=== PATIENT | female | born 1955 | race Two or more races ===

== ENCOUNTER → 2019-11-09 10:46 | Outpatient (BNVA) | payer MEDICARE, MEDICAID, SELFPAY | PROVIDERS: Visit Provider Internal Medicine Endocrinology, Diabetes & Metabolism | DX: E05.00 Thyrotoxicosis with diffuse goiter without thyrotoxic crisis or storm (principal); E66.9 Obesity, unspecified; Z68.34 Body mass index [BMI] 34.0-34.9, adult | CPT/HCPCS: 99214 ==

== ENCOUNTER 2019-11-13 16:07 | Outpatient (REF) | payer MEDICARE, MEDICAID, SELFPAY ==
--- NOTE | 2019-11-13 | US_ITS ---
EXAMINATION: US PELVIS, COMPLETE CLINICAL INFORMATION: Pelvic pain. COMPARISON: None. TECHNIQUE: Transabdominal and transvaginal imaging was performed. FINDINGS: LMP: Postmenopausal. Uterus is anteverted , measuring 7.7 x 4.8 x 5.5 cm. Heterogeneous hypoechoic focus in the uterine body/fundus measuring 4. 4 x 4 by 4 cm, probable fibroid. Endometrial thickness 0.5 cm. Small fluid is seen within the canal in the cervical region. Nabothian cysts present. Bilateral ovaries are not visualized. No free fluid in the cul-de-sac. IMPRESSION: 1. Heterogeneous hypoechoic focus in the uterine body/fundus measuring 4. 4 x 4 by 4.4 cm, probable fibroid. 2. Patient is postmenopausal. Endometrial thickness measures 0.5 cm. Please clinically correlate. In postmenopausal patients, endometrial thickness of 8 mm or less is within range of normal, if no vaginal bleeding. Clinical correlation and management is recommended based on patient's symptoms and risk factors. In a postmenopausal patient, endometrial thickness of 4 mm or more in the presence of vaginal bleeding would require further evaluation. Clinical management is recommended.
== END 2019-11-13 16:08 | disposition home or self-care (01) ==
LOC: HO.US 16:07
PROVIDERS: Visit Provider Obstetrics & Gynecology
DX: R10.2 Pelvic and perineal pain (principal); R10.32 Left lower quadrant pain; N94.9 Unspecified condition associated with female genital organs and menstrual cycle
CPT/HCPCS: 76830; 76856

== ENCOUNTER → 2019-12-20 13:43 | Outpatient (BNVA) | payer MEDICARE, MEDICAID, SELFPAY | PROVIDERS: Visit Provider Student in an Organized Health Care Education/Training Program | DX: M75.51 Bursitis of right shoulder (principal) | CPT/HCPCS: 20610; 99212 ==

== ENCOUNTER → 2020-02-22 12:48 | Outpatient (BNVA) | payer MEDICARE, MEDICAID, SELFPAY | PROVIDERS: PCP Physician Assistant; Visit Provider Nurse Practitioner Family | DX: Z76.89 Persons encountering health services in other specified circumstances (principal) | CPT/HCPCS: 93005; 99212 ==

== ENCOUNTER 2020-02-22 14:04 | Inpatient (IN) | payer MEDICARE, MEDICAID, SELFPAY ==
[2020-02-22 14:06] VITALS: BP 106/78; PULSE 125; RESP 18; TEMP 36.5; O2SAT 100; BMI 31.5
--- NOTE | 2020-02-22 14:39 | ECG_ITS ---
Test Reason : AFIB Blood Pressure : / mmHG Vent. Rate : 127 BPM Atrial Rate : 136 BPM P-R Int : 000 ms QRS Dur : 114 ms QT Int : 310 ms P-R-T Axes : 000 -49 128 degrees QTc Int : 450 ms Atrial fibrillation with rapid ventricular response with premature ventricular or aberrantly conducted complexes Left axis deviation Left ventricular hypertrophy with QRS widening Nonspecific T wave abnormality Abnormal ECG When compared with ECG of 05-DEC-2016 07:51, Atrial fibrillation with rapid ventricular response has replaced Normal sinus rhythm Referred By: Billie Henao Electronically Signed By:KY HERNANDEZ MD
--- NOTE | 2020-02-22 14:44 | ED.GENADULT ---
HPI - General Adult General Chief complaint: General Medical Stated complaint: afib Time Seen by Provider: 02/22/20 14:37 Source: patient Mode of arrival: ambulatory Limitations: no limitations History of Present Illness HPI narrative: 64 y/o female with history of atrial fibrillation s/p ablation x2 on Pradaxa, HFrEF, non-ischemic cardiomyopathy with biventricular ICD, anxiety who presents from Cardiology office with symptomatic rapid atrial fibrillation. She reports feeling unwell for the last 4 days. She has been fatigued with JOAQUIN and palpitations. She reports medication compliance with no fluctuations in her weight. She was referred to the ED for admission for cardioversion. Shew denies fever, chills, N/V/D, cough, urinary symptoms. She denies chest pain. MD complaint: palpitations Onset (ago): day(s) (3) Location: chest Radiation: non-radiation Severity: moderate Pain Consistency: intermittent Relieving factors: rest Exacerbating factors: movement Associated symptoms: malaise and shortness of breath Treatments prior to arrival: none Related Data Home Medications Medication Instructions Recorded Confirmed acetaminophen 500 mg tablet 1,000 mg PO Q6H PRN 11/09/19 02/22/20 clonazepam 0.5 mg tablet 0.5 mg PO BEDTIME 11/09/19 02/22/20 dabigatran etexilate 150 mg capsule 150 mg PO BID 11/09/19 02/22/20 sotalol 80 mg tablet 80 mg PO BID 11/09/19 02/22/20 Previous Rx's Medication Instructions Recorded sacubitril 97 mg-valsartan 103 mg 1 tab PO BID #60 tab 12/26/19 tablet furosemide 40 mg tablet 40 mg PO DAILY #90 tab 02/05/20 Allergies Allergy/AdvReac Type Severity Reaction Status Date / Time rivaroxaban [From XARELTO] AdvReac Intermediate RASH Verified 12/20/19 13:56 Review of Systems Review of Systems: Constitutional: No Fever, No Chills ENT/Mouth: No sore throat, No Rhinorrhea, No Swallowing Difficulty Eyes: No Eye Pain, No Swelling, No Redness Cardiovascular: No Chest Pain, + SOB, No Orthopnea,+ Edema Respiratory: No Cough, No Sputum, No Wheezing, + dyspnea Gastrointestinal: No Nausea, No Vomiting, No Diarrhea, No abdominal Pain Genitourinary: No Dysuria, No Urinary Frequency, No Hematuria Musculoskeletal: No joint pain, No Myalgias Skin: No Skin Lesions, No rash Neuro: No Weakness, No Numbness, No Dizziness, No Headache Psych: + Anxiety/Panic, No Depression Heme/Lymph: No Bruising, No Lymphadenopathy PMFSH Past Medical History Attestation statement: The following information was validated with the patient. Medical History Biventricular ICD (implantable cardioverter-defibrillator) in place Graves' disease in remission History of cardioversion HLD (hyperlipidemia) HTN (hypertension) Nonischemic cardiomyopathy Obesity (BMI 30-39.9) PAF (paroxysmal atrial fibrillation) SVT (supraventricular tachycardia) Surgical History History of cardiac defibrillator placement History of radiofrequency ablation procedure for cardiac arrhythmia Hx of cardiac catheterization (~06/2017) Hx of tubal ligation Family History Family History Father CVA (cerebral vascular accident) Mother Hypertension Diabetes Social History Social History Alcohol intake: never Smoking Status: Never smoker Use of substances other than those prescribed or required for medical reasons: No Advance Directives: No Advance Directives Information Provided: No Physical Exam Vital Signs: Vital Signs: Last Vital Signs Temp 97.7 F 02/22/20 14:06 Pulse 125 H 02/22/20 14:06 Resp 18 02/22/20 14:06 BP 106/78 02/22/20 14:06 Pulse Ox 100 02/22/20 14:06 Body Mass Index 31.5 Appearance: Alert. Oriented X3. No acute distress. Eyes: Pupils equal, round and reactive to light. ENT: Pharynx normal. Neck: Normal inspection. Neck supple. CVS: irregularly irregular, rapid rate. Pulses normal. Respiratory: No respiratory distress. Breath sounds normal. No rales. Abdomen: Obese, soft and nontender. +BS x4 Skin: Skin warm and dry. Normal skin color. Normal skin turgor. No rashes. Extremities: No lower extremity edema. Neuro: Oriented X 3. No motor deficit. No sensory deficit. Course Course Course Narrative: 64 y/o female presenting with symptomatic rapid afib. HR 110-130's. SBP soft initially 90's --> 110 on arrival here. Will give low dose lopressor IV and check labs. Plan for admission for cardioversion per Dr. Bruno. Reevaluation(s) Reevaluation #1: BNP 1100 - will give dose of IV lasix, possible CHF exacerbation leading to rapid afib. BP soft so will need to monitor closely. IV lopressor given x2 with HR remaining 110-130's. Will TT Dr. Bruno for recs on continued IV BB vs digoxin load. Reevaluation #2: 4:14 pm - Dr. Bruno recommending continuation of her home Sotalol and also 2 doses of IV digoxin. Spoke with Aishwarya Perze who will admit patient for planned cardioversion. Consultations Consultation #1: Cardiology - Dr. Bruno Medical Decision Making Lab Data Result diagrams: 02/22/20 14:54 02/22/20 14:54 Labs: Lab Results 02/22/20 02/22/20 02/22/20 Range/Units 14:54 14:54 14:54 WBC 8.0 (4.8-10.8) X10*3/uL RBC 4.20 (4.20-5.50) X10*6/uL Hgb 12.4 (12.0-16.0) g/dl Hct 37.7 (37-47) % MCV 89.8 (80-98) fL MCH 29.5 (27.0-33.0) pg MCHC 32.9 (31.0-35.0) g/dl RDW 14.4 (11.0-16.0) % Plt Count 254 (160-400) X10*3/uL MPV 10.4 (9.4-12.3) fL Immature Gran % (Auto) 0.1 (0.0-0.4) % Neut % (Auto) 61.0 (45-73) % Lymph % (Auto) 29.7 (20-40) % Christian % (Auto) 7.8 (2-11) % Eos % (Auto) 0.9 (0-4) % Baso % (Auto) 0.5 (0-2) % Lymph # (Auto) 2.4 (1.2-4.9) X10*3/uL Christian # (Auto) 0.6 (0.1-1.2) X10*3/uL Eos # (Auto) 0.1 (0.0-0.4) X10*3/uL Baso # (Auto) 0.0 (0.0-0.2) X10*3/uL Abs Immat Gran (auto) 0.01 (0.00-0.03) X10*3/uL Absolute Neuts (auto) 4.9 (2.0-8.3) X10*3/uL Absolute Nucleated RBC 0.000 (0.0-0.012) X10*3/uL Nucleated RBC % (auto) 0.0 (0.0-0.2) /100WBC PT 15.5 H (10.8-13.0) SEC INR 1.3 H (0.9-1.1) APTT 59.6 H (24.1-38.0) SEC Sodium 142 (135-145) mmol/L Potassium 4.8 (3.3-5.1) mmol/l Chloride 105 (96-108) mmol/L Carbon Dioxide 28 (22-29) mmol/L Anion Gap 14 (12-20) BUN 12 (9-16) mg/dL Creatinine 0.82 (0.5-1.4) mg/dL Estim Creat Clear Calc 87.5 Estimated GFR > 60 Random Glucose 133 H (60-115) mg/dL Calcium 8.6 (8.4-10.2) mg/dL Magnesium 2.3 (1.6-2.6) mg/dL Total Bilirubin 0.9 (0.0-1.0) mg/dL Direct Bilirubin 0.3 (0.0-0.5) mg/dL AST 32 H (5-31) U/L ALT 46 H (0-31) U/L Alkaline Phosphatase 125 H (39-117) U/L Troponin I High Sens (<3.5-17.0) ng/L B-Natriuretic Peptide (<100) pg/mL Total Protein 6.7 (6.5-8.0) g/dL Albumin 4.1 (3.5-5.0) g/dL TSH 0.83 (0.32-4.0) mIU/mL Urine Color Urine Appearance Urine pH (5.0-8.0) Ur Specific [place] (1.005-1.025) Urine Protein (NEG-TRACE) MG/DL Urine Glucose (UA) (NEG) MG/DL Urine Ketones (NEG) MG/DL Urine Blood (NEG) Urine Nitrite (NEG) Ur Leukocyte Esterase (NEG) COVID-19 ([facility]) (Negative) COVID-19 Clin Com 02/22/20 02/22/20 02/22/20 Range/Units 14:54 14:54 15:40 WBC (4.8-10.8) X10*3/uL RBC (4.20-5.50) X10*6/uL Hgb (12.0-16.0) g/dl Hct (37-47) % MCV (80-98) fL MCH (27.0-33.0) pg MCHC (31.0-35.0) g/dl RDW (11.0-16.0) % Plt Count (160-400) X10*3/uL MPV (9.4-12.3) fL Immature Gran % (Auto) (0.0-0.4) % Neut % (Auto) (45-73) % Lymph % (Auto) (20-40) % Christian % (Auto) (2-11) % Eos % (Auto) (0-4) % Baso % (Auto) (0-2) % Lymph # (Auto) (1.2-4.9) X10*3/uL Christian # (Auto) (0.1-1.2) X10*3/uL Eos # (Auto) (0.0-0.4) X10*3/uL Baso # (Auto) (0.0-0.2) X10*3/uL Abs Immat Gran (auto) (0.00-0.03) X10*3/uL Absolute Neuts (auto) (2.0-8.3) X10*3/uL Absolute Nucleated RBC (0.0-0.012) X10*3/uL Nucleated RBC % (auto) (0.0-0.2) /100WBC PT (10.8-13.0) SEC INR (0.9-1.1) APTT (24.1-38.0) SEC Sodium (135-145) mmol/L Potassium (3.3-5.1) mmol/l Chloride (96-108) mmol/L Carbon Dioxide (22-29) mmol/L Anion Gap (12-20) BUN (9-16) mg/dL Creatinine (0.5-1.4) mg/dL Estim Creat Clear Calc Estimated GFR Random Glucose (60-115) mg/dL Calcium (8.4-10.2) mg/dL Magnesium (1.6-2.6) mg/dL Total Bilirubin (0.0-1.0) mg/dL Direct Bilirubin (0.0-0.5) mg/dL AST (5-31) U/L ALT (0-31) U/L Alkaline Phosphatase (39-117) U/L Troponin I High Sens 5.0 (<3.5-17.0) ng/L B-Natriuretic Peptide 1192 H (<100) pg/mL Total Protein (6.5-8.0) g/dL Albumin (3.5-5.0) g/dL TSH (0.32-4.0) mIU/mL Urine Color YELLOW Urine Appearance CLEAR Urine pH 6.0 (5.0-8.0) Ur Specific [place] 1.010 (1.005-1.025) Urine Protein NEG (NEG-TRACE) MG/DL Urine Glucose (UA) NEG (NEG) MG/DL Urine Ketones NEG (NEG) MG/DL Urine Blood NEG (NEG) Urine Nitrite NEG (NEG) Ur Leukocyte Esterase NEG (NEG) COVID-19 ([facility]) Negative (Negative) COVID-19 Clin Com See Note ECG Data Attestation: I personally reviewed and interpreted this ECG as follows: Interpretation: atrial fibrillation with rapid ventrciular response, HR 127 bpm, incomplete RBBB, nonspecific T wave abnormality, poor R wave progression Critical Care Time Critical Care Time Critical Care Time: Yes Total Critical Care Time: 40 Attestation: I attest to critical care time spent taking care of this patient with rapid atrial fibrillation requiring multiple doses of IV rate controlling medications and frequent reassessment of hemodynamics. Discharge Plan Discharge Clinical Impression: Atrial fibrillation with RVR Patient Disposition: Admitted As Inpatient Prescriptions: No Action sacubitril-valsartan [Entresto] 97-103 mg tablet 1 tab PO BID Qty: 60 RF: 3 furosemide 40 mg tablet 40 mg PO DAILY Qty: 90 RF: 1 Pradaxa 150 mg capsule 150 mg PO BID RF: 0 sotalol 80 mg tablet 80 mg PO BID RF: 0 acetaminophen [Tylenol Extra Strength] 500 mg tablet 1,000 mg PO Q6H PRN (Reason: Pain (Scale Score 1-3)) RF: 0 clonazepam [Klonopin] 0.5 mg tablet 0.5 mg PO BEDTIME RF: 0
[2020-02-22 15:00] LABS: MANUAL DIFF FLAG NO
[2020-02-22] MEDS: Metoprolol Tartrate 5 MG/5 ML VIAL 2.5 MG IVPUSH ×2 (15:01→15:47)
[2020-02-22 15:03] LABS: Basophils Percent Auto 0.5 % (0-2); Eosinophils Absolute Auto 0.1 X10*3/uL (0.0-0.4); Eosinophils Percent Auto 0.9 % (0-4); Hematocrit 37.7 % (37-47); Hemoglobin 12.4 g/dl (12.0-16.0); Imm Gran Abs Auto 0.01 X10*3/uL (0.00-0.03); Imm Gran Pct Auto 0.1 % (0.0-0.4); Lymphocytes Absolute Auto 2.4 X10*3/uL (1.2-4.9); Lymphocytes Percent Auto 29.7 % (20-40); Mean Corpuscular HGB Conc 32.9 g/dl (31.0-35.0); Mean Corpuscular Hemoglobin 29.5 pg (27.0-33.0); Mean Corpuscular Volume 89.8 fL (80-98); Mean Platelet Volume 10.4 fL (9.4-12.3); Monocytes Absolute Auto 0.6 X10*3/uL (0.1-1.2); Monocytes Percent Auto 7.8 % (2-11); Neutrophils Absolute Auto 4.9 X10*3/uL (2.0-8.3); Platelet Count 254 X10*3/uL (160-400); Red Cell Distribution Width 14.4 % (11.0-16.0)
[2020-02-22 15:08] LABS: INTERNATIONAL NORM RATIO 1.3 (0.9-1.1); Prothrombin Time 15.5 SEC (10.8-13.0)
[2020-02-22 15:11] LABS: Partial Thromboplastin Time 59.6 SEC (24.1-38.0)
[2020-02-22 15:18] LABS: COVID-19 Test Negative (Negative); IDNOW Serial# 9DD0AD1C
[2020-02-22 15:28] LABS: B Type Natriuretic Peptide 1192 pg/mL (<100)
--- NOTE | 2020-02-22 15:35 | XR_ITS ---
EXAMINATION: XR CHEST CLINICAL INFORMATION: Palpitations COMPARISON: December 02, 2016 TECHNIQUE: AP portable view of the chest was obtained. FINDINGS: No significant abnormality is noted involving the heart, lungs, mediastinum, bony thorax or soft tissues. Pacemaker/defibrillator in place. XR/XR chest 1V IMPRESSION: No acute disease.
[2020-02-22 15:45] LABS: Alanine Aminotransferase 46 U/L (0-31); Albumin Level 4.1 g/dL (3.5-5.0); Alkaline Phosphatase 125 U/L (39-117); Anion Gap 14 (12-20); Aspartate Amino Transferase 32 U/L (5-31); Bilirubin Direct 0.3 mg/dL (0.0-0.5); Bilirubin Total 0.9 mg/dL (0.0-1.0); Blood Urea Nitrogen 12 mg/dL (9-16); Calcium 8.6 mg/dL (8.4-10.2); Carbon Dioxide 28 mmol/L (22-29); Chloride 105 mmol/L (96-108); Creatinine Clr Calc Pharmacy 87.5; Estimated Glomerular Filt Rate > 60; Glucose Random 133 mg/dL (60-115); Magnesium 2.3 mg/dL (1.6-2.6); Potassium 4.8 mmol/l (3.3-5.1); Sodium 142 mmol/L (135-145); Total Protein 6.7 g/dL (6.5-8.0)
[2020-02-22] MEDS: Furosemide 20 MG/2 ML VIAL IVPUSH (15:46)
[2020-02-22 16:05] LABS: TSH reflex Free T4 0.83 mIU/mL (0.32-4.0)
[2020-02-22 16:06] LABS: Glucose Urine UA NEG (NEG); Leukocyte Esterase Urine NEG (NEG); Nitrite Urine NEG (NEG); Urine Blood NEG (NEG); Urine Ketones NEG (NEG); Urine Protein NEG (NEG-TRACE)
[2020-02-22 16:07] LABS: Appearance Urine CLEAR; Color Urine YELLOW
[2020-02-22 16:52] VITALS: BP 106/78; PULSE 138
[2020-02-22] MEDS: Digoxin 0.5 MG/2 ML AMPUL IVPUSH (16:52)
[2020-02-22] MEDS: Sotalol HCL 80 MG TABLET PO (16:52)
[2020-02-22 17:48] VITALS: BP 122/52; PULSE 130; RESP 18; O2SAT 97
--- NOTE | 2020-02-22 18:30 | PM.EVENT ---
Event Note Date of Service: 02/22/20 Event Note: Admission note The patient was seen and evaluated with Aishwarya Perez NP. I agree with her note, assessment and plan with the following. A 64-year-old female with PMH of hypertension, hyperlipidemia, SVT, nonischemic cardiomyopathy, nonobstructive coronary artery disease, Bi V ICD placement, paroxysmal atrial fibrillation and CHF who presents as a referral from cardiology office for palpitations and shortness of breath. Atrial fibrillation with RVR Significantly symptomatic with shortness of breath and lethargy Received her home dose sotalol Started on digoxin loading dose Keep on telemetry Continue dabigatran b.i.d. Cardiology planning cardioversion in the morning Can use small dose of Cardizem IV needed for heart rate above 130 Rest of evaluations by DIRECTOR OF DIAGNOSTIC IMAGING note.
[2020-02-22 20:00] VITALS: BP 122/71; PULSE 94; RESP 20; TEMP 36.8; O2SAT 98
[2020-02-22 22:22] VITALS: BP 120/66; PULSE 108; RESP 18; TEMP 36.7; O2SAT 96
[2020-02-22] MEDS: Sacubitril/Valsartan 97/103 1 TAB TABLET PO (22:32)
[2020-02-22] MEDS: clonazePAM 0.5 MG TABLET PO (22:32)
[2020-02-22] MEDS: Dabigatran Etexilate Mesylate 150 MG CAPSULE PO (22:32)
[2020-02-22] MEDS: 0.9 % Sodium Chloride Flush 3 ML SYRINGE IVFLUSH (22:33)
[2020-02-22 23:11] VITALS: BMI 31.9
[2020-02-23] VITALS (14 sets, daily range): BP systolic 115–158; BP diastolic 56–79; PULSE 18–108; RESP 16–22; TEMP 36–37; O2SAT 95–100; BMI 31.9
--- NOTE | 2020-02-23 | ECG_ITS ---
Test Reason : SOTALOL PROT Blood Pressure : / mmHG Vent. Rate : 075 BPM Atrial Rate : 071 BPM P-R Int : 200 ms QRS Dur : 116 ms QT Int : 440 ms P-R-T Axes : 095 261 054 degrees QTc Int : 491 ms AV dual-paced complexes with Premature ventricular complexes Abnormal ECG When compared with ECG of 23-FEB-2020 11:03, No significant changes seen Referred By: Juliette Jacques Electronically Signed By:KY HERNANDEZ MD
[2020-02-23 08:47] LABS: MANUAL DIFF FLAG NO
[2020-02-23 09:01] LABS: Basophils Percent Auto 0.5 % (0-2); Eosinophils Absolute Auto 0.1 X10*3/uL (0.0-0.4); Eosinophils Percent Auto 1.2 % (0-4); Hematocrit 36.1 % (37-47); Hemoglobin 11.8 g/dl (12.0-16.0); Imm Gran Abs Auto 0.02 X10*3/uL (0.00-0.03); Imm Gran Pct Auto 0.3 % (0.0-0.4); Lymphocytes Absolute Auto 2.8 X10*3/uL (1.2-4.9); Lymphocytes Percent Auto 38.6 % (20-40); Mean Corpuscular HGB Conc 32.7 g/dl (31.0-35.0); Mean Corpuscular Hemoglobin 29.4 pg (27.0-33.0); Mean Corpuscular Volume 89.8 fL (80-98); Mean Platelet Volume 10.7 fL (9.4-12.3); Monocytes Absolute Auto 0.6 X10*3/uL (0.1-1.2); Monocytes Percent Auto 7.9 % (2-11); Neutrophils Absolute Auto 3.8 X10*3/uL (2.0-8.3); Neutrophils Percent Auto 51.5 % (45-73); Platelet Count 215 X10*3/uL (160-400); Red Blood Count 4.02 X10*6/uL (4.20-5.50); Red Cell Distribution Width 13.9 % (11.0-16.0); White Blood Count 7.3 X10*3/uL (4.8-10.8)
[2020-02-23] MEDS: Dabigatran Etexilate Mesylate 150 MG CAPSULE PO ×2 (09:04→20:46)
[2020-02-23] MEDS: Sotalol HCL 80 MG TABLET 120 MG PO ×2 (09:05→20:49)
[2020-02-23] MEDS: 0.9 % Sodium Chloride Flush 3 ML SYRINGE IVFLUSH ×3 (09:07→20:57)
[2020-02-23] MEDS: Furosemide 20 MG TABLET PO ×2 (09:07→18:25)
[2020-02-23] MEDS: Sacubitril/Valsartan 97/103 1 TAB TABLET PO ×2 (09:07→20:46)
[2020-02-23 09:18] LABS: Anion Gap 11 (12-20); Blood Urea Nitrogen 14 mg/dL (9-16); Calcium 8.6 mg/dL (8.4-10.2); Carbon Dioxide 33 mmol/L (22-29); Chloride 105 mmol/L (96-108); Creatinine Clr Calc Pharmacy 93.7; Estimated Glomerular Filt Rate > 60; Glucose Random 94 mg/dL (60-115); Potassium 4.9 mmol/l (3.3-5.1); Sodium 144 mmol/L (135-145)
--- NOTE | 2020-02-23 10:03 | MHC.SHP ---
Pre-Procedural Eval Section A The patient is an INPATIENT: Yes Changes since office visit: Yes Patient answered all questions The History & Physical has been completed within 30 days and I have reviewed it.: Yes Section B Chief Complaint: Afib rvr Allergies: Allergies Allergy/AdvReac Type Severity Reaction Status Date / Time rivaroxaban [From XARELTO] AdvReac Intermediate RASH Verified 12/20/19 13:56 Plan I have reviewed the history and physical and performed a pertinent physical examination on my patient. No changes have occurred unless specified.
--- NOTE | 2020-02-23 10:36 | P.CONCA_ITS ---
History of Present Illness History of Present Illness Date of Service: 02/23/20 Requesting physician: Juliette Jacques Consult reason: atrial fibrillation Chief complaint: Afib rvr Narrative: We were consulted to see Iliana due to recurrent atrial fibrillation. She is a pleasant 64 y/o woman with PMH of NICM, HFrEF and difficult to control AF in past. She has done extremely well with rhythm control after ablation and on sotalol therapy for few years with no hospitalizations or CHF exacerbation. She started feeling recurrent palpitations on Wednesday. She called her PCP but was not able to get a response and then she called out office on Wednesday and was seen yesterday by Nadege and was noted to be in AF with RVR with lowish BP. She was therefore admitted. Her BP was on the lower side. She received digoxin. We increased her sotalol dose this morning to 120 mg BID. Review of Systems Constitutional: Constitutional: Denies chills, Reports fatigue, Denies fever (s) and Reports lethargy Cardiovascular: Cardiovascular: Denies chest pain, Denies lightheadedness, Denies Loss of Consciousness, Reports palpitations and Reports dyspnea on exertion Respiratory: Respiratory: Denies cough, Denies excessive phlegm production and Reports dyspnea on exertion Gastrointestinal: Gastrointestinal: Reports no additional gastrointestinal complaints Musculoskeletal: Musculoskeletal: Reports no additional musculoskeletal complaints Neurologic: Reports system reviewed and no additional complaints, except as documented Psychiatric: Psychiatric: Reports no additional psychiatric complaints Endocrine: Endocrine: Reports no additional endocrine complaints, Reports fatigue and Reports palpitations Hematologic/Lymphatic: Hematologic/Lymphatic: Reports no additional hematologic/lymphatic complaints [facility] Past Medical History Medical History (Updated 02/23/20 @ 11:01 by Andres Bruno MD) Biventricular ICD (implantable cardioverter-defibrillator) in place Graves' disease in remission Heart failure with reduced ejection fraction History of cardioversion HLD (hyperlipidemia) HTN (hypertension) Nonischemic cardiomyopathy Obesity (BMI 30-39.9) PAF (paroxysmal atrial fibrillation) SVT (supraventricular tachycardia) Family History Family History Father CVA (cerebral vascular accident) Mother Hypertension Diabetes Surgical History Surgical History History of cardiac defibrillator placement History of radiofrequency ablation procedure for cardiac arrhythmia Hx of cardiac catheterization (~06/2017) Hx of tubal ligation Social History Social History Household Members: Spouse Housing: House Do you presently have visiting nurse or other home services: No Alcohol intake: never Smoking Status: Never smoker Use of substances other than those prescribed or required for medical reasons: No Have you been hit, kicked, punched, or otherwise hurt by someone within the past year? If so, by whom?: No Do you feel safe in your current relationship?: Yes Is there a partner from a previous relationship who is making you feel unsafe now?: No Are you made to feel afraid or neglected: No Advance Directives: No Advance Directives Information Provided: No Do you have thoughts of harming others: None Do you have a plan to hurt others: No Plan Recently lost weight without trying: No Meds Allergies Allergy/AdvReac Type Severity Reaction Status Date / Time rivaroxaban [From XARELTO] AdvReac Intermediate RASH Verified 12/20/19 13:56 Home Medications Medication Instructions Recorded Confirmed Type acetaminophen 500 mg tablet 1,000 mg PO Q6H PRN 11/09/19 02/22/20 History clonazepam 0.5 mg tablet 0.5 mg PO BEDTIME 11/09/19 02/22/20 History dabigatran etexilate 150 mg capsule 150 mg PO BID 11/09/19 02/22/20 History sotalol 80 mg tablet 80 mg PO BID 11/09/19 02/22/20 History Physical Exam Vital Signs: Vital Signs: Last Vital Signs Temp 98.2 F 02/23/20 09:41 Pulse 108 H 02/23/20 09:41 Resp 18 02/23/20 09:41 BP 132/79 02/23/20 09:41 Pulse Ox 95 02/23/20 09:41 Body Mass Index 31.9 Const: General: cooperative, comfortable, no acute distress, alert and awake Nutritional Appearance: obese Orientation/consciousness: patient oriented x3 Limitations: no limitations HENMT: Head: Yes normocephalic and Yes atraumatic Neck: Neck: Yes trachea midline and Yes supple Resp: Effort & Inspection: normal respiratory effort Auscultation: clear to auscultation bilaterally Cardio: Jugular venous distension: no JVD Rhythm: abnormal rhythm irregularly irregular Heart sounds: S1 normal heart sound present and S2 normal heart sound present GI: Auscultation: normal bowel sounds Skin: General skin exam: no rashes or lesions noted Neuro: General: patient oriented x3 Extrem: General: Yes no clubbing, cyanosis or edema Psych: Appearance: grossly normal Affect: Anxious affect present Results Labs and Meds Result diagrams: 02/23/20 08:20 02/23/20 07:27 Lab results: Laboratory Results - last 24 hr 02/22/20 02/22/20 02/22/20 14:54 14:54 14:54 WBC 8.0 RBC 4.20 Hgb 12.4 Hct 37.7 MCV 89.8 MCH 29.5 MCHC 32.9 RDW 14.4 Plt Count 254 MPV 10.4 Immature Gran % (Auto) 0.1 Neut % (Auto) 61.0 Lymph % (Auto) 29.7 Whitman % (Auto) 7.8 Eos % (Auto) 0.9 Baso % (Auto) 0.5 Lymph # (Auto) 2.4 Whitman # (Auto) 0.6 Eos # (Auto) 0.1 Baso # (Auto) 0.0 Abs Immat Gran (auto) 0.01 Absolute Neuts (auto) 4.9 Absolute Nucleated RBC 0.000 Nucleated RBC % (auto) 0.0 PT 15.5 H INR 1.3 H APTT 59.6 H Sodium 142 Potassium 4.8 Chloride 105 Carbon Dioxide 28 Anion Gap 14 BUN 12 Creatinine 0.82 Estim Creat Clear Calc 87.5 Estimated GFR > 60 Random Glucose 133 H Calcium 8.6 Magnesium 2.3 Total Bilirubin 0.9 Direct Bilirubin 0.3 AST 32 H ALT 46 H Alkaline Phosphatase 125 H Troponin I High Sens B-Natriuretic Peptide Total Protein 6.7 Albumin 4.1 TSH 0.83 Urine Color Urine Appearance Urine pH Ur Specific [place] Urine Protein Urine Glucose (UA) Urine Ketones Urine Blood Urine Nitrite Ur Leukocyte Esterase COVID-19 ([facility]) COVID-19 Clin Com 02/22/20 02/22/20 02/22/20 14:54 14:54 15:40 WBC RBC Hgb Hct MCV MCH MCHC RDW Plt Count MPV Immature Gran % (Auto) Neut % (Auto) Lymph % (Auto) Whitman % (Auto) Eos % (Auto) Baso % (Auto) Lymph # (Auto) Whitman # (Auto) Eos # (Auto) Baso # (Auto) Abs Immat Gran (auto) Absolute Neuts (auto) Absolute Nucleated RBC Nucleated RBC % (auto) PT INR APTT Sodium Potassium Chloride Carbon Dioxide Anion Gap BUN Creatinine Estim Creat Clear Calc Estimated GFR Random Glucose Calcium Magnesium Total Bilirubin Direct Bilirubin AST ALT Alkaline Phosphatase Troponin I High Sens 5.0 B-Natriuretic Peptide 1192 H Total Protein Albumin TSH Urine Color YELLOW Urine Appearance CLEAR Urine pH 6.0 Ur Specific [place] 1.010 Urine Protein NEG Urine Glucose (UA) NEG Urine Ketones NEG Urine Blood NEG Urine Nitrite NEG Ur Leukocyte Esterase NEG COVID-19 ([facility]) Negative COVID-19 Clin Com See Note 02/23/20 02/23/20 07:27 08:20 WBC 7.3 RBC 4.02 L Hgb 11.8 L Hct 36.1 L MCV 89.8 MCH 29.4 MCHC 32.7 RDW 13.9 Plt Count 215 MPV 10.7 Immature Gran % (Auto) 0.3 Neut % (Auto) 51.5 Lymph % (Auto) 38.6 Whitman % (Auto) 7.9 Eos % (Auto) 1.2 Baso % (Auto) 0.5 Lymph # (Auto) 2.8 Whitman # (Auto) 0.6 Eos # (Auto) 0.1 Baso # (Auto) 0.0 Abs Immat Gran (auto) 0.02 Absolute Neuts (auto) 3.8 Absolute Nucleated RBC 0.000 Nucleated RBC % (auto) 0.0 PT INR APTT Sodium 144 Potassium 4.9 Chloride 105 Carbon Dioxide 33 H Anion Gap 11 L BUN 14 Creatinine 0.77 Estim Creat Clear Calc 93.7 Estimated GFR > 60 Random Glucose 94 Calcium 8.6 Magnesium Total Bilirubin Direct Bilirubin AST ALT Alkaline Phosphatase Troponin I High Sens B-Natriuretic Peptide Total Protein Albumin TSH Urine Color Urine Appearance Urine pH Ur Specific [place] Urine Protein Urine Glucose (UA) Urine Ketones Urine Blood Urine Nitrite Ur Leukocyte Esterase COVID-19 ([facility]) COVID-19 Clin Com EKG shows atrial fibrillation rapid ventricular response with nonspecific ST changes Imaging Radiologist's impression: Impressions Chest X-Ray 02/22/20 15:35 IMPRESSION: No acute disease. Assessment and Plan (1) Atrial fibrillation with RVR: Status: Acute Atrial fibrillation with rapid ventricular response, recurrent. Patient is not tolerating this well with low blood pressure and highly symptomatic. In the past she has had hospitalizations related to AFib but has done very well since ablation and rhythm control with sotalol. She has had adverse effects to amiodarone therapy. Will therefore require synchronized cardioversion and most likely up titration of sotalol therapy. This has been increased this morning. Will undergo synchronized cardioversion this morning. Patient has been taking her oral anticoagulation without interruption. We discussed the risks, benefits, alternatives 2nd again to procedure. She understands agrees. Eventually once cardioverted and successfully cardioverted will monitor for 1 more day with at least 3 dose of increased sotalol. Follow-up EKG. Will require repeat EP evaluation for repeat ablation in the future. Continue full oral anticoagulation with Pradaxa (2) Nonischemic cardiomyopathy: Status: Acute Nonischemic cardiomyopathy, with severe LV systolic dysfunction. Continue neurohormonal modulation, sotalol as well as Entresto to continue. (3) Heart failure with reduced ejection fraction: Status: Acute Heart failure with reduced ejection fraction without any overt decompensation at this time. Not tolerating atrial fibrillation very well. Will perform synchronized cardioversion as above. Continue Lasix 40 mg daily. Signs and symptoms of heart failure were discussed. Will follow the patient.
--- NOTE | 2020-02-23 10:41 | HP_ITS ---
DATE OF SERVICE: 02/22/2020 CHIEF COMPLAINT: Lethargy. HISTORY OF PRESENT ILLNESS: 64-year-old woman with a history of atrial fibrillation, who presents with complaints of increased lethargy, shortness of breath, and heart palpitations over the last week. She has a history of ablation with pacemaker placement in the past, and is on Pradaxa. She is also on sotalol at home. She was told to come into the ER by her special equipment technician for likely cardioversion tomorrow. She denied chest pain, nausea, vomiting, diarrhea, fever, or chills. She reports medication compliant at home. Her labs today are actually all within acceptable limits, except her BNP is elevated at 1192. Matt virus PCR negative. Chest x-ray negative for any consolidation or effusion. No fever noted. Heart rate up to 140s. She was given a dose of metoprolol, IV Lasix, digoxin, and sotalol in the ER. She will be admitted for further management and treatment of symptomatic atrial fibrillation with rapid ventricular response. PAST MEDICAL HISTORY: 1. Atrial fibrillation, on anticoagulation. 2. Biventricular ICD. 3. Graves disease. 4. History of cardioversion. 5. History of ablation. 6. Hyperlipidemia. 7. Hypertension. 8. Nonischemic cardiomyopathy. 9. Obesity. 10. History of SVT. 11. Cardiac catheterization. 12. Tubal ligation. FAMILY HISTORY: Father had CVA. Mother had hypertension and diabetes. SOCIAL HISTORY: Denies any alcohol, tobacco, or illicit drug use. Lives with her . ALLERGIES: ALLERGIES TO XARELTO. MEDICATIONS: 1. Acetaminophen 1000 mg p.o. q.6 hours p.r.n. 2. Klonopin 0.5 mg p.o. at bedtime. 3. Pradaxa 150 mg p.o. b.i.d. 4. Furosemide 20 mg p.o. daily. 5. Entresto 1 tab p.o. b.i.d. 6. Sotalol 80 mg p.o. b.i.d. REVIEW OF SYSTEMS: CONSTITUTIONAL: Denies any recent fever, chills, or decrease in appetite. RESPIRATORY: See HPI. CARDIOVASCULAR: See HPI. GASTROINTESTINAL: Denies any dysphagia, abdominal pain, nausea, vomiting, or diarrhea. GENITOURINARY: Denies any dysuria, frequency, or hematuria. MUSCULOSKELETAL: Denies any joint pain or swelling. NEUROPSYCH: Denies any weakness or seizures. All other systems are reviewed and are negative. PHYSICAL EXAMINATION: CONSTITUTIONAL: Resting in bed, appearing in no acute distress. VITAL SIGNS: 97.7, 138, 106/70, and 100% on room air. SKIN: Intact without rashes or open sores. HEENT: Head is normocephalic and atraumatic. Eyes, pupils are PERRLA. Sclerae anicteric. Mouth and throat: Mucous membranes are intact and moist. NECK: Supple. No lymphadenopathy. No JVD noted. CHEST: Clear to auscultation without wheezes, rhonchi, or rales. HEART: Irregularly irregular. ABDOMEN: Nontender. NEURO: The patient is alert and oriented x3. No focal deficits noted. LABORATORY DATA: WBC 8.0, hemoglobin 12.4, hematocrit 37.7, and platelets 254. Sodium is 142, potassium 4.8, chloride is 105, bicarb is 28, BUN is 12, and creatinine 0.2. BNP is 1192. AST is 32, ALT is 46, and alkaline phosphatase is 125. ASSESSMENT AND PLAN: 64-year-old woman, who is being admitted with symptomatic atrial fibrillation with rapid ventricular response. 1. Atrial fibrillation with rapid ventricular response. Cardiology consultation. Likely, cardioversion tomorrow. Fully anticoagulated on Pradaxa. We will continue sotalol, digoxin due to hypotension. 2. Acute on chronic congestive heart failure. We will treat with IV Lasix, likely related to atrial fibrillation. 3. Transaminitis. Likely related to mild congestion from congestive heart failure. Diurese and follow LFTs. Continue Entresto. 4. Hypertension. Low blood pressure is secondary to atrial fibrillation with rapid ventricular response. Not on any antihypertensives. heart failure. IV Lasix. 5. Deep vein thrombosis prophylaxis with Pradaxa. 6. Case discussed with Dr. Jacques. 7. Full code. IVONNE Cook MD JR/EDELMIRAL / [id number]
--- NOTE | 2020-02-23 10:53 | HO.ANESPROP2 ---
FORMERLY [facility] Past Medical History Medical History Biventricular ICD (implantable cardioverter-defibrillator) in place Graves' disease in remission History of cardioversion HLD (hyperlipidemia) HTN (hypertension) Nonischemic cardiomyopathy Obesity (BMI 30-39.9) PAF (paroxysmal atrial fibrillation) SVT (supraventricular tachycardia) Family History Family History Father CVA (cerebral vascular accident) Mother Hypertension Diabetes Surgical History Surgical History History of cardiac defibrillator placement History of radiofrequency ablation procedure for cardiac arrhythmia Hx of cardiac catheterization (~06/2017) Hx of tubal ligation Social History Social History Household Members: Spouse Housing: House Do you presently have visiting nurse or other home services: No Alcohol intake: never Smoking Status: Never smoker Use of substances other than those prescribed or required for medical reasons: No Have you been hit, kicked, punched, or otherwise hurt by someone within the past year? If so, by whom?: No Do you feel safe in your current relationship?: Yes Is there a partner from a previous relationship who is making you feel unsafe now?: No Are you made to feel afraid or neglected: No Advance Directives: No Advance Directives Information Provided: No Do you have thoughts of harming others: None Do you have a plan to hurt others: No Plan Recently lost weight without trying: No Meds Allergies Allergy/AdvReac Type Severity Reaction Status Date / Time rivaroxaban [From XARELTO] AdvReac Intermediate RASH Verified 12/20/19 13:56 Home Medications Medication Instructions Recorded Confirmed Type acetaminophen 500 mg tablet 1,000 mg PO Q6H PRN 11/09/19 02/22/20 History clonazepam 0.5 mg tablet 0.5 mg PO BEDTIME 11/09/19 02/22/20 History dabigatran etexilate 150 mg capsule 150 mg PO BID 11/09/19 02/22/20 History sotalol 80 mg tablet 80 mg PO BID 11/09/19 02/22/20 History Exam Exam Date and Time: February 23, 2020 1053 Height,Weight and Vital Signs: Height 5 ft 10 in Weight 101 kg Last Vital Signs Temp 98.2 F 02/23/20 09:41 Pulse 108 H 02/23/20 09:41 Resp 18 02/23/20 09:41 BP 132/79 02/23/20 09:41 Pulse Ox 95 02/23/20 09:41 Pertinent Lab Results Pertinent Lab Results: Laboratory Tests 02/22/20 02/22/20 02/22/20 14:54 14:54 14:54 WBC 8.0 RBC 4.20 Hgb 12.4 Hct 37.7 MCV 89.8 MCH 29.5 MCHC 32.9 RDW 14.4 Plt Count 254 MPV 10.4 Immature Gran % (Auto) 0.1 Neut % (Auto) 61.0 Lymph % (Auto) 29.7 Borden % (Auto) 7.8 Eos % (Auto) 0.9 Baso % (Auto) 0.5 Lymph # (Auto) 2.4 Borden # (Auto) 0.6 Eos # (Auto) 0.1 Baso # (Auto) 0.0 Abs Immat Gran (auto) 0.01 Absolute Neuts (auto) 4.9 Absolute Nucleated RBC 0.000 Nucleated RBC % (auto) 0.0 PT 15.5 H INR 1.3 H APTT 59.6 H Sodium 142 Potassium 4.8 Chloride 105 Carbon Dioxide 28 Anion Gap 14 BUN 12 Creatinine 0.82 Estim Creat Clear Calc 87.5 Estimated GFR > 60 Random Glucose 133 H Calcium 8.6 Magnesium 2.3 Total Bilirubin 0.9 Direct Bilirubin 0.3 AST 32 H ALT 46 H Alkaline Phosphatase 125 H Troponin I High Sens B-Natriuretic Peptide Total Protein 6.7 Albumin 4.1 TSH 0.83 Urine Color Urine Appearance Urine pH Ur Specific Sanderson Urine Protein Urine Glucose (UA) Urine Ketones Urine Blood Urine Nitrite Ur Leukocyte Esterase COVID-19 ([facility]) COVID-19 Clin Com 02/22/20 02/22/20 02/22/20 14:54 14:54 15:40 WBC RBC Hgb Hct MCV MCH MCHC RDW Plt Count MPV Immature Gran % (Auto) Neut % (Auto) Lymph % (Auto) Borden % (Auto) Eos % (Auto) Baso % (Auto) Lymph # (Auto) Borden # (Auto) Eos # (Auto) Baso # (Auto) Abs Immat Gran (auto) Absolute Neuts (auto) Absolute Nucleated RBC Nucleated RBC % (auto) PT INR APTT Sodium Potassium Chloride Carbon Dioxide Anion Gap BUN Creatinine Estim Creat Clear Calc Estimated GFR Random Glucose Calcium Magnesium Total Bilirubin Direct Bilirubin AST ALT Alkaline Phosphatase Troponin I High Sens 5.0 B-Natriuretic Peptide 1192 H Total Protein Albumin TSH Urine Color YELLOW Urine Appearance CLEAR Urine pH 6.0 Ur Specific Sanderson 1.010 Urine Protein NEG Urine Glucose (UA) NEG Urine Ketones NEG Urine Blood NEG Urine Nitrite NEG Ur Leukocyte Esterase NEG COVID-19 (ALIDA) Negative COVID-19 Clin Com See Note 02/23/20 02/23/20 07:27 08:20 WBC 7.3 RBC 4.02 L Hgb 11.8 L Hct 36.1 L MCV 89.8 MCH 29.4 MCHC 32.7 RDW 13.9 Plt Count 215 MPV 10.7 Immature Gran % (Auto) 0.3 Neut % (Auto) 51.5 Lymph % (Auto) 38.6 Borden % (Auto) 7.9 Eos % (Auto) 1.2 Baso % (Auto) 0.5 Lymph # (Auto) 2.8 Borden # (Auto) 0.6 Eos # (Auto) 0.1 Baso # (Auto) 0.0 Abs Immat Gran (auto) 0.02 Absolute Neuts (auto) 3.8 Absolute Nucleated RBC 0.000 Nucleated RBC % (auto) 0.0 PT INR APTT Sodium 144 Potassium 4.9 Chloride 105 Carbon Dioxide 33 H Anion Gap 11 L BUN 14 Creatinine 0.77 Estim Creat Clear Calc 93.7 Estimated GFR > 60 Random Glucose 94 Calcium 8.6 Magnesium Total Bilirubin Direct Bilirubin AST ALT Alkaline Phosphatase Troponin I High Sens B-Natriuretic Peptide Total Protein Albumin TSH Urine Color Urine Appearance Urine pH Ur Specific Sanderson Urine Protein Urine Glucose (UA) Urine Ketones Urine Blood Urine Nitrite Ur Leukocyte Esterase COVID-19 ([facility]IDA) COVID-19 Clin Com Airway Mallampati Class: II TM Dist: >3cm Neck ROM: Full Assessment and Plan Assessment Anesthesia Assessment: Anesthesia Plan Discussed and Chart Reviewed Final Anesthetic Review NPO: Yes ASA Class: III Final Preanesthetic Review: No Changes in Pt Med Stat, Meds/Allgs Chart Reviewed, Consent Obtained/Reviewed and Anes Risks/Benef Reviewed Patient Risk: Intermediate Procedure Risk: Low Assessment/Block/Sedation in SS: Assess/Block/Sedation-SS Anesthetic Plan Anesthetic Plan: MAC: Disposition: Standard PACU
--- NOTE | 2020-02-23 11:04 | ECG_ITS ---
Test Reason : S/P CARDIOVERSION Blood Pressure : / mmHG Vent. Rate : 075 BPM Atrial Rate : 075 BPM P-R Int : 184 ms QRS Dur : 114 ms QT Int : 424 ms P-R-T Axes : 074 -57 109 degrees QTc Int : 473 ms AV dual-paced rhythm with Premature atrial complexes Abnormal ECG When compared with ECG of 22-FEB-2020 15:02, Electronic atrial pacemaker has replaced Atrial fibrillation Vent. rate has decreased BY 52 BPM Referred By: Andres Bruno Electronically Signed By:ANDRES BRUNO MD
--- NOTE | 2020-02-23 11:06 | P.PNCAR_ITS ---
Cardioversion Procedure Note Cardioversion Date of Procedure: 02/23/2020 Ordering Provider: Myself Performing Provider: Myself Indication for Procedure: Symptomatic atrial fibrillation Pre-Op Diagnosis: Symptomatic persistent atrial fibrillation Post-Op Diagnosis: Atrial paced rhythm Performed with Transesophageal Echo: No History: See history and physical for details. Patient has taken oral anticoa gulant therapy with Pradaxa uninterrupted Consent: Verbal and Written consent was obtained from the patient before starting. The patient was made aware of the risk benefits alternatives and 2nd opinion to the procedure. Procedure: After consent obtained, cardioversion pads were attached in anteroposterior configuration and the patient was sedated by the anesthesia team. Once adequate sedation achieved, patient was delivered 200 joules of biphasic synchronized energy in anteroposterior configuration Complications: None Impression: Converted successfully to atrially paced rhythm Recommendations: 1. Increase sotalol to 120 mg b.i.d.. 2. Obtain stat EKG 3. Monitor for 1 more day 4. Continue full oral anticoagulation with Pradaxa
--- NOTE | 2020-02-23 13:41 | HO.PM.IMPN ---
Subjective Subjective Date of Service: 02/23/20 Interval History: the patient was seen and evaluated this morning Laying in bed, feels comfortable Denies any fever, chills or shortness of breath Still symptomatic with atrial fibrillation, had cardioversion done No reported other overnight events. Systemic review: No fever, chills or weakness No chest pain, palpitation No shortness of breath or coughing No abdominal pain, nausea or vomiting No urinary symptoms No any rash or wounds Physical Exam Vital Signs: Vital Signs: Last Vital Signs Temp 97.3 F 02/23/20 12:53 Pulse 76 02/23/20 12:53 Resp 20 02/23/20 12:53 BP 135/67 02/23/20 12:53 Pulse Ox 97 02/23/20 12:53 Body Mass Index 31.9 Constitutional : Alert, oriented, not in distress Neck : Normal inspection, Supple Cardiovascular : Regular, S1 S2, no lower extremity edema Respiratory : Good bilateral air entry, no crackles, wheezes or rhonchi Gastrointestinal: soft, lax, Normal bowel sounds, Non tender Skin : Warm/Dry, No rash Neurological : Alert & oriented x3, No focal deficit Objective Data Current Medications Generic Name Dose Route Start Last Admin Trade Name Freq PRN Reason Stop Dose Admin Acetaminophen 650 mg 02/22/20 18:15 Acetaminophen 325 Mg Tablet PO Q6H PRN Pain, Mild (Pain Scale 1-3) Clonazepam 0.5 mg 02/22/20 21:00 02/22/20 22:32 Clonazepam 0.5 Mg Tablet PO 0.5 mg BEDTIME ANTHONY Administration Dabigatran 150 mg 02/22/20 21:00 02/23/20 09:04 Dabigatran Etexilate Mesylate 150 Mg Capsule PO 150 mg BID ANTHONY Administration Furosemide 20 mg 02/23/20 09:00 02/23/20 09:07 Furosemide 20 Mg Tablet PO 20 mg BID@0900,1800 ANTHONY Administration Protocol Ondansetron HCl 4 mg 02/22/20 18:15 Ondansetron Hcl 4 Mg/2 Ml Vial IVPUSH Q8H PRN Nausea and Vomiting Pharmacy Consult 1 each 02/22/20 14:39 Consult Rx Perform Med Rec MISCELLANE ONCE PRN Consult order Sacubitril/Valsartan 1 tab 02/22/20 21:00 02/23/20 09:07 Sacubitril/Valsartan 97/103 1 Tab Tablet PO 1 tab BID ANTHONY Administration Protocol Sodium Chloride 3 ml 02/23/20 00:00 02/23/20 09:07 0.9 % Sodium Chloride Flush 3 Ml Syringe IVFLUSH 3 ml QSHIFT ANTHONY Administration Sotalol HCl 120 mg 02/23/20 09:00 02/23/20 09:05 Sotalol Hcl 80 Mg Tablet PO 120 mg BID ANTHONY Administration Labs CBC & Chem 7: 02/23/20 08:20 02/23/20 07:27 Assessment and Plan (1) Atrial fibrillation with RVR: Status: Acute (2) Shortness of breath: Status: Acute (3) Heart failure with reduced ejection fraction: Status: Acute (4) Nonischemic cardiomyopathy: Status: Acute (5) Transaminitis: Status: Acute Assessment and Plan: 64-year-old woman, who is being admitted with symptomatic atrial fibrillation with rapid ventricular response. Atrial fibrillation with rapid ventricular response Post cardioversion this morning Back in regular rhythm Increase sotalol to 120 b.i.d. Follow EKG Discontinue digoxin Continue Pradaxa Acute on chronic congestive heart failure Continue Entresto. Received the IV Lasix, Monitor intake and output Transaminitis Likely related to CHF Continue diuresis and monitor liver function Deep vein thrombosis prophylaxis Pradaxa.
--- NOTE | 2020-02-23 15:35 | MHC.CM.PN ---
PT REPORTS SHE LIVES AT HOME WITH HER SIGNIFICANT OTHER AND DAUGHTER. SHE REPORTS HER S/O IS HER CAREGIVER, COMPENSATED THROUGH [employer]. SHE REPORTS HE USED TO BE HER DAUGHTERS CAREGIVER TOO BUT FOR SOME REASON SHE WAS DISCHARGED FROM THE PROGRAM RECENTLY BY HER INSURANCE COMPANY. PT REPORTS HER DAUGHTER IS STILL LIVING WITH THEM BUT SHE DOES NOT ASSIST THE PT IN ANY WAY. PT REPORTS SHE USES A CANE BUT DOES NOT NEED IT ALL THE TIME. PT STATES SHE HAS A HCP NAMING HER S/O AND HER DAUGHTER AGENTS. PT REPORTS RECENTLY CHANGING PCP'S AND HAS A NEW PT APPT WITH COLETTE JOHNSON COMING UP. IMM DELIVERED CURRENT DC PLAN IS HOME WITH RESUMPTION OF [employer] TO TRANSPORT
[2020-02-23] MEDS: Acetaminophen 325 MG TABLET 650 MG PO (18:26)
[2020-02-23] MEDS: clonazePAM 0.5 MG TABLET PO (20:46)
--- NOTE | 2020-02-23 22:00 | ECG_ITS ---
Test Reason : QTc interval, Sotalol management Blood Pressure : / mmHG Vent. Rate : 073 BPM Atrial Rate : 073 BPM P-R Int : 186 ms QRS Dur : 110 ms QT Int : 442 ms P-R-T Axes : 099 268 044 degrees QTc Int : 486 ms AV dual-paced complexes Prolonged QT Abnormal ECG When compared to the previous EKG of Premature ventricular complexes are no longer Present Referred By: Juliette Jacques Electronically Signed By:KY HERNANDEZ MD
--- NOTE | 2020-02-23 22:02 | PM.EVENT ---
Event Note Date of Service: 02/23/20 Event Note: Notified by nursing staff of 8 beat run of NSVT. Review of chart shows patient has ICD in place. EKG reviewed-atrial paced rhythm with t wave inv in lateral precordial leads-unchanged from prior. Continue telemetry monitoring.
--- NOTE | 2020-02-23 22:31 | PC.NURSE ---
Patient noted to have an 8 beat MD GERARDO notified, Will continue to monitor.
[2020-02-24 04:00] VITALS: BP 128/72; PULSE 76; RESP 18; TEMP 36.8; O2SAT 96
[2020-02-24 07:04] LABS: Hematocrit 34.6 % (37-47); Hemoglobin 11.4 g/dl (12.0-16.0); Mean Corpuscular HGB Conc 32.9 g/dl (31.0-35.0); Mean Corpuscular Hemoglobin 29.7 pg (27.0-33.0); Mean Corpuscular Volume 90.1 fL (80-98); Mean Platelet Volume 10.7 fL (9.4-12.3); Platelet Count 204 X10*3/uL (160-400); Red Blood Count 3.84 X10*6/uL (4.20-5.50); Red Cell Distribution Width 13.9 % (11.0-16.0); White Blood Count 5.7 X10*3/uL (4.8-10.8)
[2020-02-24 07:31] LABS: Anion Gap 12 (12-20); Blood Urea Nitrogen 13 mg/dL (9-16); Calcium 8.6 mg/dL (8.4-10.2); Carbon Dioxide 31 mmol/L (22-29); Chloride 105 mmol/L (96-108); Creatinine Clr Calc Pharmacy 97.5; Estimated Glomerular Filt Rate > 60; Glucose Random 89 mg/dL (60-115); Potassium 4.5 mmol/l (3.3-5.1); Sodium 143 mmol/L (135-145)
[2020-02-24 07:53] VITALS: BP 137/69; PULSE 72; RESP 18; TEMP 36.7; O2SAT 94
--- NOTE | 2020-02-24 10:03 | ECG_ITS ---
Test Reason : Check QTC Blood Pressure : / mmHG Vent. Rate : 073 BPM Atrial Rate : 073 BPM P-R Int : 202 ms QRS Dur : 100 ms QT Int : 430 ms P-R-T Axes : 070 -73 042 degrees QTc Int : 473 ms Normal sinus rhythm with Ventricular-paced rhythm Prolonged QT Abnormal ECG When compared to the previous EKG of Atrial-paced rhythm is no longer Present Referred By: Juliette Jacques Electronically Signed By:KY HERNANDEZ MD
--- NOTE | 2020-02-24 10:13 | HO.POSTANES ---
Post Anesthesia Evaluation Post Anesthesia Evaluation Vital Signs: Vital Signs Temp Pulse Resp BP Pulse Ox 02/24/20 07:53 98.0 F 72 18 137/69 94 02/24/20 04:00 98.2 F 76 18 128/72 96 02/23/20 23:59 98.6 F 18 L 18 150/56 H 97 Anesthesia: General Mental Status: Awake Pain Control: Satisfactory Nausea/Vomiting: None Hydration: Adequate Anesthesia-Related Issues: No Anes. Related Issues
[2020-02-24 10:55] VITALS: O2SAT 95
[2020-02-24] MEDS: Dabigatran Etexilate Mesylate 150 MG CAPSULE PO (11:01)
[2020-02-24 11:02] VITALS: BP 151/82; PULSE 81
[2020-02-24] MEDS: Furosemide 20 MG TABLET PO (11:02)
[2020-02-24] MEDS: Sotalol HCL 80 MG TABLET 120 MG PO (11:02)
[2020-02-24] MEDS: 0.9 % Sodium Chloride Flush 3 ML SYRINGE IVFLUSH (11:03)
[2020-02-24] MEDS: Sacubitril/Valsartan 97/103 1 TAB TABLET PO (11:03)
--- NOTE | 2020-02-24 11:12 | PM.PNCARD ---
Subjective Subjective Date of Service: 02/24/20 Principal diagnosis: Recurrent atrial fibrillation, nonischemic cardiomyopathy Interval history: Patient status post cardioversion yesterday. Doing extremely well. Maintaining sinus rhythm with intermittent atrial pacing. Review of Systems Constitutional: Reports no additional constitutional complaints Cardiovascular: Reports no additional cardiovascular complaints Respiratory: Reports no additional respiratory complaints Reports system reviewed and no additional complaints, except as documented Hematologic/Lymphatic: Reports no additional hematologic/lymphatic complaints Allergic/Immunologic: Reports no additional allergic/immunologic complaints Physical Exam Vital Signs: Last Vital Signs Temp 98.0 F 02/24/20 07:53 Pulse 81 02/24/20 11:02 Resp 18 02/24/20 07:53 BP 151/82 H 02/24/20 11:02 Pulse Ox 94 02/24/20 07:53 Body Mass Index 31.9 Const General: cooperative, comfortable, alert and awake Nutritional Appearance: obese Orientation/consciousness: patient oriented x3 Limitations: no limitations Neck Neck: Yes trachea midline, Yes supple and Yes no JVD Resp Effort & Inspection: normal respiratory effort Auscultation: clear to auscultation bilaterally Cardio Jugular venous distension: no JVD Rate: regular rate Rhythm: regular rhythm Heart sounds: S1 normal heart sound present and S2 normal heart sound present GI Auscultation: normal bowel sounds Neuro General: patient oriented x3 and no focal motor deficits Extrem General: Yes no clubbing, cyanosis or edema Results Labs and Meds Result diagrams: 02/24/20 06:04 02/24/20 06:04 Lab results: Laboratory Results - last 24 hr 02/24/20 02/24/20 06:04 06:04 WBC 5.7 RBC 3.84 L Hgb 11.4 L Hct 34.6 L MCV 90.1 MCH 29.7 MCHC 32.9 RDW 13.9 Plt Count 204 MPV 10.7 Absolute Nucleated RBC 0.000 Nucleated RBC % (auto) 0.0 Sodium 143 Potassium 4.5 Chloride 105 Carbon Dioxide 31 H Anion Gap 12 BUN 13 Creatinine 0.74 Estim Creat Clear Calc 97.5 Estimated GFR > 60 Random Glucose 89 Calcium 8.6 EKG shows normal sinus rhythm with LV pacing with QTC interval of 473 milliseconds Progress Note: A&P Assessment and plan (1) PAF (paroxysmal atrial fibrillation): Status: Acute Assessment and Plan: Paroxysmal atrial fibrillation status post cardioversion. Doing well. Tolerating higher dose of sotalol with no significant QTC prolongation. Patient can be discharged home 120 mg b.i.d. of sotalol. Has contacted electrophysiology service for consideration of repeat ablation. Continue Pradaxa 150 mg b.i.d.. Will follow up in the clinic in 2 weeks time. (2) Nonischemic cardiomyopathy: Status: Acute Assessment and Plan: Severe nonischemic cardiomyopathy. Clinically doing well. Continue current neurohormonal modulation with sotalol and Entresto therapy. Continue cardiac resynchronization therapy. (3) Heart failure with reduced ejection fraction: Status: Acute Assessment and Plan: Heart failure clinically euvolemic. Continue current diuretic dose. Continue neurohormonal modulation as above. Heart failure management was discussed. She understands agrees. Continue rhythm control approach which has done very well for her. Will follow up in the clinic in 2 weeks time, sooner p.r.n.. Thank you for allowing me to partake in her care Fall Risk Details Current Medications: Current Medications Generic Name Dose Route Start Last Admin Trade Name Kwakuq PRN Reason Stop Dose Admin Acetaminophen 650 mg 02/22/20 18:15 02/23/20 18:26 Acetaminophen 325 Mg Tablet PO 650 mg Q6H PRN Administration Pain, Mild (Pain Scale 1-3) Clonazepam 0.5 mg 02/22/20 21:00 02/23/20 20:46 Clonazepam 0.5 Mg Tablet PO 0.5 mg BEDTIME ANTHONY Administration Dabigatran 150 mg 02/22/20 21:00 02/24/20 11:01 Dabigatran Etexilate Mesylate 150 Mg Capsule PO 150 mg BID ANTHONY Administration Furosemide 20 mg 02/23/20 09:00 02/24/20 11:02 Furosemide 20 Mg Tablet PO 20 mg BID@0900,1800 ANTHONY Administration Protocol Ondansetron HCl 4 mg 02/22/20 18:15 Ondansetron Hcl 4 Mg/2 Ml Vial IVPUSH Q8H PRN Nausea and Vomiting Pharmacy Consult 1 each 02/22/20 14:39 Consult Rx Perform Med Rec MISCELLANE ONCE PRN Consult order Sacubitril/Valsartan 1 tab 02/22/20 21:00 02/24/20 11:03 Sacubitril/Valsartan 97/103 1 Tab Tablet PO 1 tab BID ANTHONY Administration Protocol Sodium Chloride 3 ml 02/23/20 00:00 02/24/20 11:03 0.9 % Sodium Chloride Flush 3 Ml Syringe IVFLUSH 3 ml QSHIFT ANTHONY Administration Sotalol HCl 120 mg 02/23/20 09:00 02/24/20 11:02 Sotalol Hcl 80 Mg Tablet PO 120 mg BID ANTHONY Administration Time Spent With Patient Time: Total time spent is greater than 50% in coordination of care (as documented) at patient's floor/unit and/or counseling patient: Time with patient: 25 - 35 minutes
--- NOTE | 2020-02-24 11:58 | MHC.CM.PN ---
Patient has been medically cleared for dc to home today, no services. Last IMM addressed yesterday.
[2020-02-24 12:00] VITALS: BP 139/93; PULSE 75; RESP 20; TEMP 36.8; O2SAT 95
--- NOTE | 2020-02-24 13:13 | PM.DS ---
DS: Providers Provider Date of Service: 02/24/20 Date of admission: 02/22/20 17:29 Primary care physician: Jeremy Smith PA-C Consults: 02/22/20 16:19 Consult to Cardiology Stat Consulting Provider: Andres Bruno Reason for consultation: rapid afib Has provider been notified: Yes 02/22/20 18:15 Consult to Cardiology Routine Consulting Provider: Andres Bruno Reason for consultation: afib rvr, chf Has provider been notified: No DS: Diagnosis Discharge Diagnosis (1) PAF (paroxysmal atrial fibrillation): Status: Acute (2) Nonischemic cardiomyopathy: Status: Acute (3) Heart failure with reduced ejection fraction: Status: Acute DS: Medications Discharge Medications Home Medications: Home Medications Medication Instructions Recorded Confirmed acetaminophen 500 mg tablet 1,000 mg PO Q6H PRN 11/09/19 02/22/20 clonazepam 0.5 mg tablet 0.5 mg PO BEDTIME 11/09/19 02/22/20 dabigatran etexilate 150 mg capsule 150 mg PO BID 11/09/19 02/22/20 Previous Rx's Medication Instructions Recorded sacubitril 97 mg-valsartan 103 mg 1 tab PO BID #60 tab 12/26/19 tablet furosemide 40 mg tablet 40 mg PO DAILY #90 tab 02/05/20 sotalol 120 mg PO BID 30 Days #90 tab 02/24/20 DS: Summary Hospital Course Hospital Course: Admission note HPI 64-year-old woman with a history of atrial fibrillation, who presents with complaints of increased lethargy, shortness of breath, and heart palpitations over the last week. She has a history of ablation with pacemaker placement in the past, and is on Pradaxa. She is also on sotalol at home. She was told to come into the ER by her cosmetic maker for likely cardioversion tomorrow. She denied chest pain, nausea, vomiting, diarrhea, fever, or chills. She reports medication compliant at home. Her labs today are actually all within acceptable limits, except her BNP is elevated at 1192. Matt virus PCR negative. Chest x-ray negative for any consolidation or effusion. No fever noted. Heart rate up to 140s. She was given a dose of metoprolol, IV Lasix, digoxin, and sotalol in the ER. She will be admitted for further management and treatment of symptomatic atrial fibrillation with rapid ventricular response. Hospital course The patient was admitted to the hospital and started in home medication with increasing the sotalol to 120 mg twice daily. She was seen by Cardiology who did cardioversion for her with good response as her symptoms improved significantly back to normal and her heart rhythm returned back to regular. Discharged home on a higher dose of sotalol of 120 mg twice daily. to follow up with Cardiology as outpatient Time Spent with Patient Time attestation: Total time spent providing and/or coordinating discharge services: Discharge coordination time: Greater than 30 minutes Physical Exam Vital Signs: Vital Signs: Last Vital Signs Temp 98.2 F 02/24/20 12:00 Pulse 75 02/24/20 12:00 Resp 20 02/24/20 12:00 BP 139/93 H 02/24/20 12:00 Pulse Ox 95 02/24/20 12:00 Body Mass Index 31.9 Constitutional : Alert, oriented, not in distress Neck : Normal inspection, Supple Cardiovascular : RRR, S1 S2, no lower extremity edema Respiratory : Good bilateral air entry, no crackles, wheezes or rhonchi Gastrointestinal: soft, lax, Normal bowel sounds, Non tender Skin : Warm/Dry, No rash Neurological : Alert & oriented x3, No focal deficit DS: Data Data Completed and Pending Labs on day of discharge: Laboratory Tests 02/22/20 02/22/20 02/22/20 14:54 14:54 14:54 WBC 8.0 RBC 4.20 Hgb 12.4 Hct 37.7 MCV 89.8 MCH 29.5 MCHC 32.9 RDW 14.4 Plt Count 254 MPV 10.4 Immature Gran % (Auto) 0.1 Neut % (Auto) 61.0 Lymph % (Auto) 29.7 [place] % (Auto) 7.8 Eos % (Auto) 0.9 Baso % (Auto) 0.5 Lymph # (Auto) 2.4 [place] # (Auto) 0.6 Eos # (Auto) 0.1 Baso # (Auto) 0.0 Abs Immat Gran (auto) 0.01 Absolute Neuts (auto) 4.9 Absolute Nucleated RBC 0.000 Nucleated RBC % (auto) 0.0 PT 15.5 H INR 1.3 H APTT 59.6 H Sodium 142 Potassium 4.8 Chloride 105 Carbon Dioxide 28 Anion Gap 14 BUN 12 Creatinine 0.82 Estim Creat Clear Calc 87.5 Estimated GFR > 60 Random Glucose 133 H Calcium 8.6 Magnesium 2.3 Total Bilirubin 0.9 Direct Bilirubin 0.3 AST 32 H ALT 46 H Alkaline Phosphatase 125 H Troponin I High Sens B-Natriuretic Peptide Total Protein 6.7 Albumin 4.1 TSH 0.83 Urine Color Urine Appearance Urine pH Ur Specific [place] Urine Protein Urine Glucose (UA) Urine Ketones Urine Blood Urine Nitrite Ur Leukocyte Esterase COVID-19 ([facility]IDA) COVID-19 Clin Com 02/22/20 02/22/20 02/22/20 14:54 14:54 15:40 WBC RBC Hgb Hct MCV MCH MCHC RDW Plt Count MPV Immature Gran % (Auto) Neut % (Auto) Lymph % (Auto) [place] % (Auto) Eos % (Auto) Baso % (Auto) Lymph # (Auto) [place] # (Auto) Eos # (Auto) Baso # (Auto) Abs Immat Gran (auto) Absolute Neuts (auto) Absolute Nucleated RBC Nucleated RBC % (auto) PT INR APTT Sodium Potassium Chloride Carbon Dioxide Anion Gap BUN Creatinine Estim Creat Clear Calc Estimated GFR Random Glucose Calcium Magnesium Total Bilirubin Direct Bilirubin AST ALT Alkaline Phosphatase Troponin I High Sens 5.0 B-Natriuretic Peptide 1192 H Total Protein Albumin TSH Urine Color YELLOW Urine Appearance CLEAR Urine pH 6.0 Ur Specific [place] 1.010 Urine Protein NEG Urine Glucose (UA) NEG Urine Ketones NEG Urine Blood NEG Urine Nitrite NEG Ur Leukocyte Esterase NEG COVID-19 (ALIDA) Negative COVID-19 Clin Com See Note 02/23/20 02/23/20 02/24/20 07:27 08:20 06:04 WBC 7.3 5.7 RBC 4.02 L 3.84 L Hgb 11.8 L 11.4 L Hct 36.1 L 34.6 L MCV 89.8 90.1 MCH 29.4 29.7 MCHC 32.7 32.9 RDW 13.9 13.9 Plt Count 215 204 MPV 10.7 10.7 Immature Gran % (Auto) 0.3 Neut % (Auto) 51.5 Lymph % (Auto) 38.6 [place] % (Auto) 7.9 Eos % (Auto) 1.2 Baso % (Auto) 0.5 Lymph # (Auto) 2.8 [place] # (Auto) 0.6 Eos # (Auto) 0.1 Baso # (Auto) 0.0 Abs Immat Gran (auto) 0.02 Absolute Neuts (auto) 3.8 Absolute Nucleated RBC 0.000 0.000 Nucleated RBC % (auto) 0.0 0.0 PT INR APTT Sodium 144 Potassium 4.9 Chloride 105 Carbon Dioxide 33 H Anion Gap 11 L BUN 14 Creatinine 0.77 Estim Creat Clear Calc 93.7 Estimated GFR > 60 Random Glucose 94 Calcium 8.6 Magnesium Total Bilirubin Direct Bilirubin AST ALT Alkaline Phosphatase Troponin I High Sens B-Natriuretic Peptide Total Protein Albumin TSH Urine Color Urine Appearance Urine pH Ur Specific [place] Urine Protein Urine Glucose (UA) Urine Ketones Urine Blood Urine Nitrite Ur Leukocyte Esterase COVID-19 (ALIDA) COVID-19 Triporati 02/24/20 06:04 WBC RBC Hgb Hct MCV MCH MCHC RDW Plt Count MPV Immature Gran % (Auto) Neut % (Auto) Lymph % (Auto) [place] % (Auto) Eos % (Auto) Baso % (Auto) Lymph # (Auto) [place] # (Auto) Eos # (Auto) Baso # (Auto) Abs Immat Gran (auto) Absolute Neuts (auto) Absolute Nucleated RBC Nucleated RBC % (auto) PT INR APTT Sodium 143 Potassium 4.5 Chloride 105 Carbon Dioxide 31 H Anion Gap 12 BUN 13 Creatinine 0.74 Estim Creat Clear Calc 97.5 Estimated GFR > 60 Random Glucose 89 Calcium 8.6 Magnesium Total Bilirubin Direct Bilirubin AST ALT Alkaline Phosphatase Troponin I High Sens B-Natriuretic Peptide Total Protein Albumin TSH Urine Color Urine Appearance Urine pH Ur Specific [place] Urine Protein Urine Glucose (UA) Urine Ketones Urine Blood Urine Nitrite Ur Leukocyte Esterase COVID-19 ([facility]IDA) COVID-19 Clin Com Discharge Plan Discharge Patient Disposition: Home, Self-Care Referrals: Jeremy Smith PA-C [Primary Care Provider] - Discharge Medications: New sotalol 80 mg Tablet 120 mg PO BID 30 Days Qty: 90 RF: 2 Continued sacubitril-valsartan [Entresto] 97-103 mg tablet 1 tab PO BID Qty: 60 RF: 3 furosemide 40 mg tablet 40 mg PO DAILY Qty: 90 RF: 1 Pradaxa 150 mg capsule 150 mg PO BID RF: 0 acetaminophen [Tylenol Extra Strength] 500 mg tablet 1,000 mg PO Q6H PRN (Reason: Pain (Scale Score 1-3)) RF: 0 clonazepam [Klonopin] 0.5 mg tablet 0.5 mg PO BEDTIME RF: 0 Discontinued sotalol 80 mg tablet 80 mg PO BID RF: 0 Discharge Orders: Discharge Order (Routine); Ordered 02/24/20 Ordered By: Juliette Jacques Diet: advance to usual diet Activity on Discharge: As tolerated Visit Report Forms: Patient Portal Discharge page Care Plan Goals: Read below Health Concerns: read below Plan of Treatment: You were admitted to the hospital for evaluation and treatment of irregular rapid heart rhythm with shortness of breath. You were evaluated by Cardiology and had cardioversion done with good response as your heart returned back to regular rhythm. Sotalol dose increased to 120 mg twice Daily Continue home medications To follow up with Cardiology as outpatient.
== END 2020-02-24 14:08 | disposition home or self-care (01) | DRG 309 ==
LOC: HO.ED 16:21 → HO.EDOVER 19:06 → HO.IMC 20:46
PROVIDERS: Internal Medicine Cardiovascular Disease; Nurse Practitioner Acute Care; Physician Assistant; Admitting Provider Student in an Organized Health Care Education/Training Program; Emergency Provider Emergency Medicine Emergency Medical Services; PCP Physician Assistant; Visit Provider Student in an Organized Health Care Education/Training Program
PROC: 5A2204Z Restoration of Cardiac Rhythm, Single (ICD-10-PCS; principal; 2020-02-23 10:30)
DX: I48.0 Paroxysmal atrial fibrillation (principal); I50.22 Chronic systolic (congestive) heart failure; I42.8 Other cardiomyopathies; E05.00 Thyrotoxicosis with diffuse goiter without thyrotoxic crisis or storm; I11.0 Hypertensive heart disease with heart failure; I47.1 Supraventricular tachycardia; Z20.822 Contact with and (suspected) exposure to COVID-19; Z95.810 Presence of automatic (implantable) cardiac defibrillator; Z79.01 Long term (current) use of anticoagulants; Z79.899 Other long term (current) drug therapy
CPT/HCPCS: 36415; 71045; 80048; 80076; 81003; 83735; 83880; 84443; 84484; 85025; 85027; 85610; 85730; 87635; 92960; 93005; 96374; 96375; 96376; 99212; 99285; 99291; J1160; J1940

== ENCOUNTER → 2020-03-01 09:51 | Outpatient (BNVA) | payer MEDICARE, MEDICAID, SELFPAY | PROVIDERS: PCP Physician Assistant; Visit Provider Internal Medicine Cardiovascular Disease | DX: Z45.02 Encounter for adjustment and management of automatic implantable cardiac defibrillator (principal); I50.20 Unspecified systolic (congestive) heart failure; I48.0 Paroxysmal atrial fibrillation | CPT/HCPCS: 93005; 99212 ==

== ENCOUNTER → 2020-03-18 12:41 | Outpatient (BNVA) | payer MEDICARE, MEDICAID, SELFPAY | PROVIDERS: PCP Physician Assistant; Visit Provider Internal Medicine Cardiovascular Disease | DX: I48.0 Paroxysmal atrial fibrillation (principal); I50.20 Unspecified systolic (congestive) heart failure; Z95.810 Presence of automatic (implantable) cardiac defibrillator | CPT/HCPCS: 99212 ==

== ENCOUNTER 2020-03-27 08:30 | Outpatient (REF) | payer MEDICARE, MEDICAID, SELFPAY ==
--- NOTE | ~2020-03-27 | XR_ITS ---
EXAMINATION: XR SHOULDER, LEFT CLINICAL INFORMATION: Left shoulder pain COMPARISON: October 28, 2012 TECHNIQUE: AP external rotation, Grashey, scapular Y, and axillary views of the left shoulder. FINDINGS: There is no evidence of acute fracture or dislocation of the left shoulder. No calcific tendinitis identified. Glenohumeral joint appears maintained. Pacemaker powerpack seen in place. No widening of the coracoclavicular space is seen. XR/XR shoulder LT min 2V IMPRESSION: No significant left shoulder abnormality identified.
[2020-03-27 09:25] LABS: Hematocrit 39.2 % (37-47); Hemoglobin 13.1 g/dl (12.0-16.0); Mean Corpuscular HGB Conc 33.4 g/dl (31.0-35.0); Mean Corpuscular Hemoglobin 29.6 pg (27.0-33.0); Mean Corpuscular Volume 88.5 fL (80-98); Mean Platelet Volume 10.8 fL (9.4-12.3); Platelet Count 212 X10*3/uL (160-400); Red Blood Count 4.43 X10*6/uL (4.20-5.50); Red Cell Distribution Width 13.3 % (11.0-16.0)
[2020-03-27 09:52] LABS: Alanine Aminotransferase 14 U/L (0-31); Albumin Level 4.2 g/dL (3.5-5.0); Alkaline Phosphatase 89 U/L (39-117); Anion Gap 10 (12-20); Aspartate Amino Transferase 18 U/L (5-31); Bilirubin Total 0.7 mg/dL (0.0-1.0); Blood Urea Nitrogen 13 mg/dL (9-16); Carbon Dioxide 30 mmol/L (22-29); Chloride 105 mmol/L (96-108); Cholesterol 227 mg/dL; Estimated Glomerular Filt Rate > 60; Glucose Fasting 107 mg/dL (60-99); HDL Cholesterol 49 mg/dL; LDL Cholesterol Calculated 151 mg/dl; Potassium 4.3 mmol/L (3.3-5.1); Sodium 141 mmol/L (135-145); Triglycerides 139 mg/dL
[2020-04-02 13:31] LABS: HPV mRNA E6/E7 rflx Not Detected (Not Detected)
== END 2020-03-27 08:31 | disposition home or self-care (01) ==
LOC: HO.LAB 08:30
PROVIDERS: PCP Physician Assistant; Visit Provider Physician Assistant
DX: Z01.419 Encounter for gynecological examination (general) (routine) without abnormal findings (principal); I48.0 Paroxysmal atrial fibrillation; I10 Essential (primary) hypertension; M25.512 Pain in left shoulder; G89.29 Other chronic pain
CPT/HCPCS: 36415; 73030; 80053; 80061; 85027; 87624; 88142

== ENCOUNTER → 2020-04-23 12:26 | Outpatient (BNVA) | payer MEDICARE, MEDICAID, SELFPAY | PROVIDERS: Visit Provider Orthopaedic Surgery | DX: M75.42 Impingement syndrome of left shoulder (principal) | CPT/HCPCS: 20610; 99202; J1040 ==

== ENCOUNTER 2020-05-08 16:00 | Outpatient (RCR) | payer MEDICARE, MEDICAID, SELFPAY ==
--- NOTE | 2020-05-01 14:02 | MHC.PT.EP ---
[facility] [place] Office [place] Office [place] Office [address] Farrah Swan [address] [phone] F: [phone] F: [phone] F: [phone] F: [phone] Physical Therapy Plan of Care Date of Evaluation: 05/01/20 Date of Surgery: N/A Diagnosis: impingement syndrome of left shoulder Assessment: pt's signs and symptoms may be consistent w/ cervical radiculopathy. Will screen for cervical involvement and treat accordingly. pt presents to physical therapy with pain, decreased range of motion, decreased strength, impaired functional mobility, and impaired postural awareness. pt is a good candidate for skilled PT due to age, potential remediation of impairments, typical disease/condition progression and prognosis, comorbidities, and motivation. pt would benefit from tailored strengthening and stretching exercise program, functional training, postural re-training, neuromuscular re-education, and modalities as needed for pain. Frequency and Duration: The patient will be seen 2x/wk for 5 wks Short Term Goals: pt will be I w/ HEP to promote self-management of her condition. pt will demo proper sitting posture w/ lumbar roll to promote neutral spine assessed via teachback method. Card Doffer Goals: pt will report a statistically significant improvement in her self-reported outcome measure, SPADI, to promote return to PLOF. pt will report <2/10 L shoulder pain w/ overhead reaching to promote return to household activities. Treatment Plan: Modalities to reduce pain, spasms and effusion. Manual therapy to restore motion and function. Therapeutic exercise to improve strength and flexibility. Neuromuscular re-education for posture and balance. Therapeutic activities to return to functional activities of daily living. Electronically signed by: Nimo Natarajan PT, DPT Please sign and return to therapist. Thank you for your referral.
--- NOTE | 2020-05-08 16:36 | MHC.PT.DC ---
[facility] [place] Office [place] Office [place] [facility] [address] Farrah Swan 140 [facility] [phone] F: [phone] F: [phone] F: [phone] F: [phone] Physical Therapy Discharge Report Diagnosis: impingement syndrome of left shoulder Date of Surgery: N/A Date of Evaluation: 05/01/20 Date of Discharge: 05/08/20 Treatments to Date: 2 Cancellations to Date: 0 No Shows to Date: 0 Discharge Status: Patient Elected to Stop Recommend MD Follow-up Discharge Summary: The patient overall does not seem interested in physical therapy. Despite encouragement from this therapist any time she attempts a new exercise or treatment she shakes her head and gives up. She has a flat affect and appears depressed. 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 She reports swelling of the left upper extremity that appears to be getting worse over the last several visits. She attributes her pain to the ICD that was placed two years ago. The patient may benefit from diagnostic imaging to make sure she does not have a new blood clot as she does have a history of upper extremity clots in the past. The patient may also benefit from counseling to help her with her boyfriend's recent change in status as well as to address her emotional status regarding her chronic pain. Today, postural strengthening was trialed but the patient refused to continue due to pain. I also performed manual cervical traction to see if the patient's pain may be cervical in nature. The patient reported no change in pain with the traction. The patient stated she did not want to waste her time with physical therapy as she feels it is not helping her. She is discharged from this physical therapy plan of care. Electronically signed by: Nimo Natarajan PT, DPT Please sign and return to therapist. Thank you for your referral.
== END 2020-05-08 16:37 | disposition other institution (70) ==
LOC: HO.PT 16:00
PROVIDERS: PCP Physician Assistant; Visit Provider Orthopaedic Surgery
DX: M75.42 Impingement syndrome of left shoulder (principal)
CPT/HCPCS: 97110; 97162

== ENCOUNTER → 2020-06-18 12:22 | Outpatient (BNVA) | payer MEDICARE, MEDICAID, SELFPAY | PROVIDERS: PCP Physician Assistant; Referring Provider Physician Assistant; Visit Provider Internal Medicine Cardiovascular Disease | DX: Z45.02 Encounter for adjustment and management of automatic implantable cardiac defibrillator (principal); I50.20 Unspecified systolic (congestive) heart failure; I48.0 Paroxysmal atrial fibrillation | CPT/HCPCS: 93005; 99212 ==

== ENCOUNTER 2020-07-01 11:08 | Outpatient (REF) | payer MEDICARE, MEDICAID, SELFPAY ==
[2020-07-01 12:12] LABS: MANUAL DIFF FLAG NO
[2020-07-01 12:20] LABS: INTERNATIONAL NORM RATIO 1.2 (0.9-1.1); Prothrombin Time 14.2 SEC (10.8-13.0)
[2020-07-01 12:23] LABS: Basophils Absolute Auto 0.1 X10*3/uL (0.0-0.2); Basophils Percent Auto 0.8 % (0-2); Eosinophils Absolute Auto 0.1 X10*3/uL (0.0-0.4); Eosinophils Percent Auto 2.1 % (0-4); Hematocrit 38.9 % (37-47); Hemoglobin 12.8 g/dl (12.0-16.0); Imm Gran Abs Auto 0.02 X10*3/uL (0.00-0.03); Imm Gran Pct Auto 0.3 % (0.0-0.4); Lymphocytes Absolute Auto 2.3 X10*3/uL (1.2-4.9); Lymphocytes Percent Auto 34.4 % (20-40); Mean Corpuscular HGB Conc 32.9 g/dl (31.0-35.0); Mean Corpuscular Hemoglobin 29.4 pg (27.0-33.0); Mean Corpuscular Volume 89.2 fL (80-98); Mean Platelet Volume 10.5 fL (9.4-12.3); Monocytes Absolute Auto 0.6 X10*3/uL (0.1-1.2); Neutrophils Absolute Auto 3.5 X10*3/uL (2.0-8.3); Neutrophils Percent Auto 53.4 % (45-73); Platelet Count 236 X10*3/uL (160-400); Red Blood Count 4.36 X10*6/uL (4.20-5.50); Red Cell Distribution Width 13.5 % (11.0-16.0); White Blood Count 6.6 X10*3/uL (4.8-10.8)
[2020-07-01 12:43] LABS: Anion Gap 10 (12-20); Blood Urea Nitrogen 13 mg/dL (9-16); Calcium 9.7 mg/dL (8.4-10.2); Carbon Dioxide 30 mmol/L (22-29); Chloride 106 mmol/L (96-108); Estimated Glomerular Filt Rate > 60; Glucose Random 102 mg/dL (60-115); Potassium 5.1 mmol/L (3.3-5.1); Sodium 141 mmol/L (135-145)
== END 2020-07-01 11:09 | disposition home or self-care (01) ==
LOC: HO.LAB 11:08
PROVIDERS: PCP Physician Assistant; Visit Provider Internal Medicine Cardiovascular Disease
DX: I48.91 Unspecified atrial fibrillation (principal)
CPT/HCPCS: 36415; 80048; 85025; 85610

== ENCOUNTER → 2020-07-05 08:54 | Outpatient (BNVA) | payer MEDICARE, MEDICAID, SELFPAY | PROVIDERS: PCP Physician Assistant; Visit Provider Student in an Organized Health Care Education/Training Program | DX: M75.42 Impingement syndrome of left shoulder (principal); M79.7 Fibromyalgia; Z79.899 Other long term (current) drug therapy | CPT/HCPCS: 99212 ==

== ENCOUNTER 2020-07-29 13:38 | Emergency (ER) | payer MEDICARE, MEDICAID, SELFPAY ==
--- NOTE | ~2020-07-29 | CT_ITS ---
EXAMINATION: CT CHEST WITHOUT CONTRAST CLINICAL INFORMATION: Pneumonia COMPARISON: Chest x-ray 07/29/2020 TECHNIQUE: Multidetector volumetric CT imaging of the chest was done. Axial MIP volume rendering provided. Sagittal and coronal reformatted images were obtained. This CT examination was performed using dose optimization techniques as appropriate, variously including the following: *Automated exposure control *Adjustment of mA and/or kV according to patient size (this includes techniques or standardized protocols for targeted exams where dose is matched to indication/reason for exam; i.e. extremities or head) *Use of iterative reconstruction technique DLP: 1361 mGy-cm FINDINGS: LUNGS: The lungs are clear with no evidence of inflammation or nodules. MEDIASTINUM: Heart size is mildly enlarged. There is no pericardial effusion. Pacemaker leads in right atrium, right ventricle and coronary sinus. There is no aneurysm of aorta. There are a small volume of vascular calcifications of the aortic wall. No mediastinal mass or significant lymphadenopathy. Thyroid is unremarkable. PLEURA: There is no pleural effusion. No pleural mass or thickening. AXILLA: No lymphadenopathy. UPPER ABDOMEN: Cluster of small stones in the upper pole left kidney measuring 5 mm and less. No abnormality of the visualized portions of liver, spleen, pancreas or the adrenal glands. OSSEOUS STRUCTURES: Unremarkable. CT/CT chest wo con IMPRESSION: 1. No acute abnormality of chest. Lungs are normally aerated. 2. Cardiomegaly. Pacemaker leads in heart. 3. Left renal calculi.
--- NOTE | ~2020-07-29 | XR_ITS ---
EXAMINATION: XR CHEST CLINICAL INFORMATION: Cough. COMPARISON: None TECHNIQUE: 2 views of the chest were obtained. FINDINGS: The lungs are well-expanded and clear of acute process. Heart size and pulmonary vascularity is normal. There are dual pacer electrodes in right atrium and right ventricle. No gross bony abnormality. XR/XR chest 2V IMPRESSION: Unremarkable chest exam.
--- NOTE | ~2020-07-29 | CT_ITS ---
EXAMINATION: CT ABDOMEN AND PELVIS WITHOUT CONTRAST CLINICAL INFORMATION: Abdominal pain COMPARISON: CT abdomen pelvis 07/07/2011 TECHNIQUE: Multidetector volumetric imaging was performed from the superior aspect of the liver through the pubic symphysis. Sagittal and coronal reformatted images were obtained on the technologist's workstation. This CT examination was performed using dose optimization techniques as appropriate, variously including the following: *Automated exposure control *Adjustment of mA and/or kV according to patient size (this includes techniques or standardized protocols for targeted exams where dose is matched to indication/reason for exam; i.e. extremities or head) *Use of iterative reconstruction technique DLP: 1361 mGy-cm FINDINGS: LUNG BASES: Cardiomegaly. Pacemaker leads in heart. Lung bases are normally aerated. No pleural effusion. LIVER, GALLBLADDER, AND BILIARY TREE: The liver is normal in size, shape, and attenuation. No focal hepatic lesion or biliary ductal dilatation is present. The gallbladder is unremarkable with no evidence of radiopaque gallstones, gallbladder wall thickening, or obvious pericholecystic inflammatory changes. PANCREAS: Unremarkable. SPLEEN: Unremarkable. ADRENAL GLANDS: Unremarkable. KIDNEYS AND URETERS: Bilateral renal stones. The upper pole left kidney there is a cluster of small stones which in aggregate measures about 8 mm and another cluster measuring about 3 mm. Within the right kidney there are 2 cluster of small stones. There is a cluster measuring about 1 cm at the midpole and another cluster at the lower pole also measuring about 1 cm with multiple additional smaller stones in the lower pole calyces. There is no hydronephrosis. There are no ureteral calculi. BLADDER: Unremarkable. GASTROINTESTINAL TRACT: There are a few scattered diverticula of the colon. There is no diverticulitis. There is no bowel wall thickening /edema. There is no bowel obstruction. There is a moderate volume of stool in the colon. The appendix is normal . The small bowel loops are unremarkable. The stomach is normal. There is no hiatal hernia. ABDOMINAL WALL: No significant hernia is appreciated. LYMPH NODES: Normal. VASCULAR: Atherosclerotic vascular calcifications of aorta and iliac arteries. There is no aneurysm. PELVIC VISCERA: Unremarkable. OSSEOUS STRUCTURES: Multilevel degenerative spondylosis of thoracic and lumbar spine. Vacuum disc phenomenon with disc height narrowing at lower 3 lumbar discs levels and at T12-L1. CT/CT abdomen pelvis wo con IMPRESSION: 1. Nonobstructive bilateral renal calculi. No hydronephrosis or ureteral stone. 2. There are scattered diverticula of the colon. There is no acute abnormality of the bowel. 3. Cardiomegaly with pacemaker in place.
[2020-07-29 13:41] VITALS: BP 128/67; PULSE 80; RESP 18; TEMP 37.1; O2SAT 96; BMI 31.5
--- NOTE | 2020-07-29 14:29 | ED_ITS ---
HPI - URI/Sore Throat General Chief Complaint: Upper Respiratory Symptoms Stated Complaint: flu like Time Seen by Provider: 07/29/20 14:28 Source: patient and family Mode of arrival: ambulatory Limitations: no limitations History of Present Illness MD elicited complaint: fever, cough and other (lower abdominal pain) Pertinent past history: other (3 days ago had ablation for afib) Onset (ago): day(s) (yesterday) Consistency: constant Severity: moderate Able to tolerate fluids by mouth: Yes Exacerbating factors: nothing Relieving factors: nothing Context: recent hospitalization Associated symptoms: fever, chills, cough and abdominal pain Treatments prior to arrival: none Related Data Home Medications Medication Instructions Recorded Confirmed acetaminophen 500 mg tablet 1,000 mg PO Q6H PRN 11/09/19 07/23/20 dabigatran etexilate 150 mg capsule 150 mg PO BID 11/09/19 07/23/20 artifi.tears(hypromellose)(PF) 0.3 1 drp OPHTHALMIC (EYE) Q4-6H PRN 03/27/20 07/23/20 % eye drops gabapentin 100 mg capsule 100 mg PO BEDTIME PRN 07/05/20 07/23/20 Previous Rx's Medication Instructions Recorded sotalol 80 mg tablet 120 mg PO BID 30 Days #90 tab 04/09/20 furosemide 40 mg tablet See Rx Instructions PO DAILY 90 04/12/20 Days #180 tab sacubitril 97 mg-valsartan 103 mg 1 tab PO BID #60 tab 07/12/20 tablet clonazepam 0.5 mg tablet 0.5 mg PO BEDTIME 30 Days #30 tab 07/23/20 doxycycline hyclate 100 mg PO BID 7 Days #14 cap 07/29/20 hydrocodone-homatropine 5 ml PO Q6H PRN #60 ml 07/29/20 Allergies Allergy/AdvReac Type Severity Reaction Status Date / Time rivaroxaban [From XARELTO] AdvReac Intermediate LEG EDEMA, Verified 07/23/20 10:49 RASH Review of Systems Review of Systems: Constitutional : No Weight loss, pos Fever, No Chills ENT/Mouth : No sore throat, No Rhinorrhea Eyes: No Swelling, No Redness Cardiovascular : No Chest Pain, No SOB, NoEdema Respiratory : pos Cough, No Sputum, No Wheezing Gastrointestinal : no Nausea, no Vomiting, no Diarrhea, positive abdominal Pain, No Hematochezia, No Melena Genitourinary : No Dysuria, No Urinary Frequency, No Hematuria, No Urgency Musculoskeletal : No joint pain, No Myalgias, No Joint Swelling Skin : No Skin Lesions, No rash Neuro : No Weakness, No Numbness, No Dizziness, No Headache Psych : No Anxiety/Panic, No Depression Heme/Lymph: No Bruising, No Lymphadenopathy Endocrine : No Polyuria, No Polydipsia All other systems reviewed and are negative. [facility] Past Medical History Attestation statement: The following information was validated with the patient. Medical History Biventricular ICD (implantable cardioverter-defibrillator) in place Graves' disease in remission Heart failure with reduced ejection fraction History of cardioversion HLD (hyperlipidemia) HTN (hypertension) Nonischemic cardiomyopathy Obesity (BMI 30-39.9) PAF (paroxysmal atrial fibrillation) SVT (supraventricular tachycardia) Transaminitis Surgical History History of cardiac defibrillator placement History of radiofrequency ablation procedure for cardiac arrhythmia Hx of cardiac catheterization (~06/2017) Hx of tubal ligation Family History Family History Father Stroke Hypertension Mother Hypertension Diabetes Daughter AVM (arteriovenous malformation) Son No problems noted. Sister No problems noted. Brother No problems noted. Brother No problems noted. Brother No problems noted. Brother No problems noted. Social History Social History Household Members: Spouse Housing: House Do you presently have visiting nurse or other home services: No Alcohol intake: never Patient Tobacco Use Status: Never used Tobacco e-Cigarette/Vaping Use: Never Used Second Hand Smoke Exposure: No Advance Directives: No Advance Directives Information Provided: No service: No Current occupational status: unemployed Physical Exam Vital Signs: Vital Signs: Last Vital Signs Temp 98.4 F 07/29/20 14:37 Pulse 76 07/29/20 14:37 Resp 18 07/29/20 13:41 BP 122/61 07/29/20 14:37 Pulse Ox 94 07/29/20 14:37 Body Mass Index 31.5 Appearance: Alert. Oriented X3. No acute distress. Eyes: Pupils equal, round and reactive to light. ENT: Pharynx normal. Neck: Normal inspection. Neck supple. CVS: Normal heart rate and rhythm. Pulses normal. Respiratory: No respiratory distress. Breath sounds normal. Dry cough Abdomen: Soft and non-tender. bilateral groins c/d/i no mass felt, small bruising in left groin but no hematoma no mass felt Skin: Skin warm and dry. Normal skin color. Normal skin turgor. Extremities: No lower extremity edema. No calf ttp Neuro: Oriented X 3. No motor deficit. No sensory deficit. Course Course Course Narrative: so far no acute findings, no WBC count, no fevers, here, UA negative, COVID negative given fevers post procedure will start on doxy to cover any possible URI after intubation MDM - URI/Sore Throat MDM Narrative Medical decision making narrative: 65 yo female with hx of afib on pradaxa, CHF, GARETH, HLD here with fevers, cough, lower abdominal pain, her groin sites look uninfected without large hematoma, will need labs, UA, CT chest for pneumonia, CT abdomen for hematoma, dispo per results and findings. Lab Data Result diagrams: 07/29/20 15:13 07/29/20 15:13 Labs: Lab Results 07/29/20 07/29/20 07/29/20 Range/Units 15:00 15:13 15:13 WBC 7.3 (4.8-10.8) X10*3/uL RBC 4.17 L (4.20-5.50) X10*6/uL Hgb 12.1 (12.0-16.0) g/dl Hct 36.5 L (37-47) % MCV 87.5 (80-98) fL MCH 29.0 (27.0-33.0) pg MCHC 33.2 (31.0-35.0) g/dl RDW 13.2 (11.0-16.0) % Plt Count 187 (160-400) X10*3/uL MPV 10.2 (9.4-12.3) fL Immature Gran % (Auto) 0.4 (0.0-0.4) % Neut % (Auto) 60.2 (45-73) % Lymph % (Auto) 25.3 (20-40) % [place] % (Auto) 9.7 (2-11) % Eos % (Auto) 4.0 (0-4) % Baso % (Auto) 0.4 (0-2) % Lymph # (Auto) 1.9 (1.2-4.9) X10*3/uL [place] # (Auto) 0.7 (0.1-1.2) X10*3/uL Eos # (Auto) 0.3 (0.0-0.4) X10*3/uL Baso # (Auto) 0.0 (0.0-0.2) X10*3/uL Abs Immat Gran (auto) 0.03 (0.00-0.03) X10*3/uL Absolute Neuts (auto) 4.4 (2.0-8.3) X10*3/uL Absolute Nucleated RBC 0.000 (0.0-0.012) X10*3/uL Nucleated RBC % (auto) 0.0 (0.0-0.2) /100WBC PT (10.8-13.0) SEC INR (0.9-1.1) APTT (24.1-38.0) SEC Sodium 141 (135-145) mmol/L Potassium 4.1 (3.3-5.1) mmol/L Chloride 108 (96-108) mmol/L Carbon Dioxide 23 (22-29) mmol/L Anion Gap 14 (12-20) BUN 11 (9-16) mg/dL Creatinine 0.75 (0.5-1.4) mg/dL Estim Creat Clear Calc 94.4 Estimated GFR > 60 Random Glucose 101 (60-115) mg/dL Calcium 9.0 D (8.4-10.2) mg/dL Magnesium 2.3 (1.6-2.6) mg/dL Total Bilirubin 0.8 (0.0-1.0) mg/dL Direct Bilirubin 0.3 (0.0-0.5) mg/dL AST 23 (5-31) U/L ALT 14 (0-31) U/L Alkaline Phosphatase 111 D (39-117) U/L Total Protein 6.7 (6.5-8.0) g/dL Albumin 4.1 (3.5-5.0) g/dL Urine Color YELLOW Urine Appearance CLEAR Urine pH 6.0 (5.0-8.0) Ur Specific [place] 1.010 (1.005-1.025) Urine Protein NEG (NEG-TRACE) MG/DL Urine Glucose (UA) NEG (NEG) MG/DL Urine Ketones NEG (NEG) MG/DL Urine Blood NEG (NEG) Urine Nitrite NEG (NEG) Ur Leukocyte Esterase NEG (NEG) COVID-19 (ALIDA) (Negative) COVID-19 Clin Com 07/29/20 07/29/20 Range/Units 15:20 15:20 WBC (4.8-10.8) X10*3/uL RBC (4.20-5.50) X10*6/uL Hgb (12.0-16.0) g/dl Hct (37-47) % MCV (80-98) fL MCH (27.0-33.0) pg MCHC (31.0-35.0) g/dl RDW (11.0-16.0) % Plt Count (160-400) X10*3/uL MPV (9.4-12.3) fL Immature Gran % (Auto) (0.0-0.4) % Neut % (Auto) (45-73) % Lymph % (Auto) (20-40) % [place] % (Auto) (2-11) % Eos % (Auto) (0-4) % Baso % (Auto) (0-2) % Lymph # (Auto) (1.2-4.9) X10*3/uL [place] # (Auto) (0.1-1.2) X10*3/uL Eos # (Auto) (0.0-0.4) X10*3/uL Baso # (Auto) (0.0-0.2) X10*3/uL Abs Immat Gran (auto) (0.00-0.03) X10*3/uL Absolute Neuts (auto) (2.0-8.3) X10*3/uL Absolute Nucleated RBC (0.0-0.012) X10*3/uL Nucleated RBC % (auto) (0.0-0.2) /100WBC PT 16.0 H (10.8-13.0) SEC INR 1.3 H (0.9-1.1) APTT 57.6 H (24.1-38.0) SEC Sodium (135-145) mmol/L Potassium (3.3-5.1) mmol/L Chloride (96-108) mmol/L Carbon Dioxide (22-29) mmol/L Anion Gap (12-20) BUN (9-16) mg/dL Creatinine (0.5-1.4) mg/dL Estim Creat Clear Calc Estimated GFR Random Glucose (60-115) mg/dL Calcium (8.4-10.2) mg/dL Magnesium (1.6-2.6) mg/dL Total Bilirubin (0.0-1.0) mg/dL Direct Bilirubin (0.0-0.5) mg/dL AST (5-31) U/L ALT (0-31) U/L Alkaline Phosphatase (39-117) U/L Total Protein (6.5-8.0) g/dL Albumin (3.5-5.0) g/dL Urine Color Urine Appearance Urine pH (5.0-8.0) Ur Specific [place] (1.005-1.025) Urine Protein (NEG-TRACE) MG/DL Urine Glucose (UA) (NEG) MG/DL Urine Ketones (NEG) MG/DL Urine Blood (NEG) Urine Nitrite (NEG) Ur Leukocyte Esterase (NEG) COVID-19 (ALIDA) Negative (Negative) COVID-19 Clin Com See Note Discharge Plan Discharge Clinical Impression: Bronchitis Patient Disposition: Home, Self-Care Instructions: Acute Bronchitis (ED) Additional Instructions: return to ED for any worsening symptoms or concerns Prescriptions: New doxycycline hyclate 100 mg capsule 100 mg PO BID 7 Days Qty: 14 RF: 0 hydrocodone-homatropine 5-1.5 mg/5 mL (5 mL) syrup 5 ml PO Q6H PRN (Reason: cough) Qty: 60 RF: 0 No Action sotalol 80 mg tablet 120 mg PO BID 30 Days Qty: 90 RF: 2 furosemide 40 mg tablet See Rx Instructions PO DAILY 90 Days Qty: 180 RF: 1 sacubitril-valsartan [Entresto] 97-103 mg tablet 1 tab PO BID Qty: 60 RF: 3 clonazepam [Klonopin] 0.5 mg tablet 0.5 mg PO BEDTIME 30 Days Qty: 30 RF: 1 Pradaxa 150 mg capsule 150 mg PO BID RF: 0 acetaminophen [Tylenol Extra Strength] 500 mg tablet 1,000 mg PO Q6H PRN (Reason: Pain (Scale Score 1-3)) RF: 0 artifi.tears(hypromellose)(PF) 0.3 % drops 1 drp ophthalmic (eye) Q4-6H PRNRF: 0 gabapentin 100 mg capsule 100 mg PO BEDTIME PRNRF: 0 Referrals: Jeremy Smith PA-C [Primary Care Provider] - 2 days (if not better)
[2020-07-29 14:37] VITALS: BP 122/61; PULSE 76; TEMP 36.9; O2SAT 94
[2020-07-29] MEDS: Acetaminophen 325 MG TABLET 650 MG PO (14:59)
--- NOTE | 2020-07-29 15:00 | PC.NURSE ---
Pharmacy called for hydromet
[2020-07-29 15:10] LABS: Glucose Urine UA NEG (NEG); Leukocyte Esterase Urine NEG (NEG); Nitrite Urine NEG (NEG); Urine Blood NEG (NEG); Urine Ketones NEG (NEG); Urine Protein NEG (NEG-TRACE)
[2020-07-29 15:11] LABS: Appearance Urine CLEAR; Color Urine YELLOW
[2020-07-29 15:17] LABS: MANUAL DIFF FLAG NO
[2020-07-29 15:20] LABS: Basophils Percent Auto 0.4 % (0-2); Eosinophils Absolute Auto 0.3 X10*3/uL (0.0-0.4); Hematocrit 36.5 % (37-47); Hemoglobin 12.1 g/dl (12.0-16.0); Imm Gran Abs Auto 0.03 X10*3/uL (0.00-0.03); Imm Gran Pct Auto 0.4 % (0.0-0.4); Lymphocytes Absolute Auto 1.9 X10*3/uL (1.2-4.9); Lymphocytes Percent Auto 25.3 % (20-40); Mean Corpuscular HGB Conc 33.2 g/dl (31.0-35.0); Mean Corpuscular Volume 87.5 fL (80-98); Mean Platelet Volume 10.2 fL (9.4-12.3); Monocytes Absolute Auto 0.7 X10*3/uL (0.1-1.2); Monocytes Percent Auto 9.7 % (2-11); Neutrophils Absolute Auto 4.4 X10*3/uL (2.0-8.3); Neutrophils Percent Auto 60.2 % (45-73); Platelet Count 187 X10*3/uL (160-400); Red Blood Count 4.17 X10*6/uL (4.20-5.50); Red Cell Distribution Width 13.2 % (11.0-16.0); White Blood Count 7.3 X10*3/uL (4.8-10.8)
[2020-07-29 15:47] LABS: INTERNATIONAL NORM RATIO 1.3 (0.9-1.1)
[2020-07-29 15:50] LABS: COVID-19 Test Negative (Negative); IDNOW Serial# 9DD0AD1C; Partial Thromboplastin Time 57.6 SEC (24.1-38.0)
[2020-07-29 15:53] LABS: Alanine Aminotransferase 14 U/L (0-31); Albumin Level 4.1 g/dL (3.5-5.0); Alkaline Phosphatase 111 U/L (39-117); Anion Gap 14 (12-20); Aspartate Amino Transferase 23 U/L (5-31); Bilirubin Direct 0.3 mg/dL (0.0-0.5); Bilirubin Total 0.8 mg/dL (0.0-1.0); Blood Urea Nitrogen 11 mg/dL (9-16); Carbon Dioxide 23 mmol/L (22-29); Chloride 108 mmol/L (96-108); Creatinine Clr Calc Pharmacy 94.4; Estimated Glomerular Filt Rate > 60; Glucose Random 101 mg/dL (60-115); Magnesium 2.3 mg/dL (1.6-2.6); Potassium 4.1 mmol/L (3.3-5.1); Sodium 141 mmol/L (135-145); Total Protein 6.7 g/dL (6.5-8.0)
--- NOTE | 2020-07-29 16:14 | PC.NURSE ---
Pharmacy called X3 for medication. Still awaiting pharmacy to bring Hydromet- Dr. Coy in to see patient and they verbalized that they will just be discharged without the medication and will pick it up outside of the facility at the pharmacy.
== END 2020-07-29 16:18 | disposition home or self-care (01) ==
PROVIDERS: Emergency Provider Emergency Medicine; PCP Physician Assistant
DX: J40 Bronchitis, not specified as acute or chronic (principal); S30.1XXA Contusion of abdominal wall, initial encounter; I11.0 Hypertensive heart disease with heart failure; I50.20 Unspecified systolic (congestive) heart failure; I48.0 Paroxysmal atrial fibrillation; X58.XXXA Exposure to other specified factors, initial encounter; Y93.9 Activity, unspecified; Y92.9 Unspecified place or not applicable; Y99.9 Unspecified external cause status; Z79.01 Long term (current) use of anticoagulants; Z79.899 Other long term (current) drug therapy; Z95.810 Presence of automatic (implantable) cardiac defibrillator; Z20.822 Contact with and (suspected) exposure to COVID-19
CPT/HCPCS: 36415; 71046; 71250; 74176; 80048; 80076; 81003; 83735; 85025; 85610; 85730; 87635; 99284

== ENCOUNTER 2020-08-06 10:36 | Outpatient (REF) | payer MEDICARE, MEDICAID, SELFPAY ==
--- NOTE | ~2020-08-06 | XR_ITS ---
EXAMINATION: XR CHEST CLINICAL INFORMATION: Cough COMPARISON: Chest 07/29/2020 TECHNIQUE: 2 views of the chest were obtained. FINDINGS: The lungs are well-expanded and clear. Heart size and pulmonary vascularity is normal. There are dual pacer electrodes in right atrium and right ventricle. No gross bony abnormality seen. XR/XR chest 2V IMPRESSION: Unremarkable chest exam.
== END 2020-08-06 10:37 | disposition home or self-care (01) ==
LOC: HO.XRAY 10:36
PROVIDERS: PCP Physician Assistant; Visit Provider Internal Medicine Cardiovascular Disease
DX: R06.02 Shortness of breath (principal); R05 Cough
CPT/HCPCS: 71046

== ENCOUNTER → 2020-09-11 09:05 | Outpatient (REF) | payer MEDICARE, MEDICAID, SELFPAY ==
--- NOTE | 2020-09-11 09:12 | CA_ITS ---
Transthoracic Echocardiogram Patient (Last, First, Middle): Iliana Vigil E Gender: Female Date of : 1955 Age: 65 Procedure Date: 09/11/2020 Procedure Type: Transthoracic Echocardiogram Location: OP Height: 177.8 cm Weight: 98.88 kg BSA: 2.17 m2 Heart Rate: bpm BP: 124 / 72 mmHg Stem Maker: Referring MD: Andres Bruno MD Symptoms: I50.20 - Unspecified systolic (congestive) heart failure Study Quality: Technically Difficult ECG Rhythm: Sinus Conclusions: - The left ventricular systolic function is moderately decreased. The visually estimated ejection fraction is between 35-40%. - Evidence suggests grade II (moderate) diastolic dysfunction. - The posterior mitral leaflet has restricted mobility. There is mild mitral annular calcification. Findings Procedure Information The patient receives contrast. Left Ventricle Normal left ventricular cavity size. There is mildly increased left ventricular wall thickness. The left ventricular systolic function is moderately decreased. The visually estimated ejection fraction is between 35 40%. There is moderate global hypokinesis. E/E prime ratio is >15, consistent with elevated filling pressures. Evidence suggests grade II (moderate) diastolic dysfunction. Right Ventricle Normal right ventricular cavity size and systolic function. There is a pacemaker wire seen in the right ventricle. TAPSE 2.38cm. Atria Both atria are normal in size. Aortic Valve There is a normal trileaflet aortic valve. There is no aortic valve stenosis. There is trace (trivial) aortic valve regurgitation. Mitral Valve There is mild anterior mitral leaflet thickening. The posterior mitral leaflet has restricted mobility. There is mild mitral annular calcification. There is mild mitral valve regurgitation. There is no mitral valve stenosis. Pulmonic Valve The pulmonic valve was not well visualized. Tricuspid Valve Normal tricuspid valve structure. There is trace tricuspid valve regurgitation. The pulmonary artery systolic pressure is normal. Great Vessels The asc aorta is normal in size. Venous The inferior vena cava is normal in size and collapses greater than 50% with inspiration. Pericardium/Pleural There is a trivial pericardial effusion. Prior Study Comparison No significant change compared to prior study dated: 10/09/2019. Measurements 2D Linear Measurements RVIDd: 2.62 RVIDd Index: 1.21 IVSd: 1.02 0.6-0.9/0.6-1.0 cm LVIDd: 5.64 3.9-5.3/4.2-5.9 cm LVIDd Index: 2.60 2.4-3.2/2.2-3.1 cm/m2 LVIDs: 4.55 2.0-3.6 cm LVPWd: 1.42 0.7-1.1 cm Ao Root: 2.80 2.1-3.5 cm LA Diam: 4.10 2.7-3.8/3.0-4.0 cm LAIDs Index: 1.89 1.5-2.3 cm/m2 LV Mass: 362.03 67-162/88-224 g LV Mass Index: 166.84 43-95/49-115 g/m2 LVOT Diam: 2.10 3.0+(-)1.3 cm Mitral Valve MV Pk E: 1.01 MV PK A: 0.79 MV Decel Time: 193.00 E/A: 1.30 E'Lateral: 5.11 E'Medial: 4.79 E/E' Med: 21.10 E/E' Lat: 19.80 MR Vol - PW Dopp: 29.40 MR VTI: 1.96 MR ERO: 15.00 MR Alias Abel: 0.35 MR RAD: 0.60 Aortic Valve AoV Pk Abel: 1.55 AoV Mn Abel: 1.01 AoV VTI: 0.31 AoV Pk Grad: 10.00 Aov Mn Grad: 5.00 YADY Cont.VTI: 1.88 LVOT LVOT Pk Abel: 0.86 LVOT Mn Abel: 0.58 LVOT VTI: 0.17 LVOT Pk Grad: 3.00 LVOT Mn Grad: 2.00 LVOT Diam: 2.10 LVOT Area: 3.46 Diastolic Function MV Pk E: 1.01 MV Pk A: 0.79 E/A: 1.30 E'Medial: 4.79 E/E' Med: 21.10 E' Laterial: 5.11 E/E' Lat: 19.80 Right Ventricle TAPSE (mm): 24.00 TVS' Abel: 10.80 Tricuspid Valve TR Pk Abel: 2.34 TR Pk Grad: 22.00 RA Press: 3.00 RVSP: 25.00 Great Vessels Aorta Ao Root-2D: 2.80 2.0-3.7 cm Ao Asc: 3.10 2.1-3.4 cm Ao Arch: 2.50 Updated in Other Vendor System with Status of Final Doug Rosales MD electronically signed on 09/12/2020 2:13:21 PM with status of Final
== END ==
LOC: HO.CARD 09:05
PROVIDERS: Visit Provider Internal Medicine Cardiovascular Disease
DX: I50.20 Unspecified systolic (congestive) heart failure (principal)
CPT/HCPCS: 93306

== ENCOUNTER → 2020-09-17 12:33 | Outpatient (BNVA) | payer MEDICARE, MEDICAID, SELFPAY | PROVIDERS: PCP Physician Assistant; Visit Provider Internal Medicine Cardiovascular Disease | DX: Z45.02 Encounter for adjustment and management of automatic implantable cardiac defibrillator (principal); I50.20 Unspecified systolic (congestive) heart failure; I48.0 Paroxysmal atrial fibrillation | CPT/HCPCS: 93005; 99212 ==

== ENCOUNTER → 2020-10-22 09:51 | Outpatient (BNVA) | payer MEDICARE, MEDICAID, SELFPAY | PROVIDERS: Referring Provider Physician Assistant; Visit Provider Nurse Practitioner | DX: Z12.11 Encounter for screening for malignant neoplasm of colon (principal); I48.0 Paroxysmal atrial fibrillation; I50.20 Unspecified systolic (congestive) heart failure; Z95.810 Presence of automatic (implantable) cardiac defibrillator | CPT/HCPCS: Q3014 ==

== ENCOUNTER → 2020-12-03 15:38 | Outpatient (BNVA) | payer MEDICARE, MEDICAID, SELFPAY | PROVIDERS: PCP Physician Assistant; Visit Provider Nurse Practitioner | CPT/HCPCS: Q3014 ==

== ENCOUNTER 2020-12-16 07:41 | Outpatient (REF) | payer MEDICARE, MEDICAID, SELFPAY ==
[2020-12-16 08:45] LABS: Alanine Aminotransferase 19 U/L (0-31); Albumin Level 4.3 g/dL (3.5-5.0); Alkaline Phosphatase 106 U/L (39-117); Anion Gap 12 (12-20); Aspartate Amino Transferase 19 U/L (5-31); Bilirubin Total 0.8 mg/dL (0.0-1.0); Blood Urea Nitrogen 13 mg/dL (9-16); Calcium 9.2 mg/dL (8.4-10.2); Carbon Dioxide 29 mmol/L (22-29); Chloride 105 mmol/L (96-108); Cholesterol 207 mg/dL; Estimated Glomerular Filt Rate > 60; Glucose Fasting 119 mg/dL (60-99); HDL Cholesterol 50 mg/dL; LDL Cholesterol Calculated 134 mg/dl; Potassium 3.9 mmol/L (3.3-5.1); Sodium 142 mmol/L (135-145); Triglycerides 118 mg/dL
[2020-12-16 09:09] LABS: TSH reflex Free T4 1.91 uIU/mL (0.32-4.0)
== END 2020-12-16 07:42 | disposition home or self-care (01) ==
LOC: HO.LAB 07:41
PROVIDERS: PCP Physician Assistant; Visit Provider Nurse Practitioner Family
DX: E78.9 Disorder of lipoprotein metabolism, unspecified (principal)
CPT/HCPCS: 36415; 80053; 80061; 84443

== ENCOUNTER 2020-12-18 09:25 | Outpatient (REF) | payer MEDICARE, MEDICAID, SELFPAY ==
--- NOTE | ~2020-12-18 | XR_ITS ---
EXAMINATION: XR THORACIC SPINE CLINICAL INFORMATION: Pain COMPARISON: Previous chest CT and chest x-ray July 2020 TECHNIQUE: 3 views of the thoracic spine were obtained. FINDINGS: There is mild curvature of the lower thoracic spine to the left. Bone alignment is otherwise normal. No fracture or dislocation is seen. There is mild degenerative spondylosis of the mid and lower thoracic spine. Disc spaces are normal. There is a left subclavian AICD that appears unchanged. XR/XR thoracic spine 3V IMPRESSION: Mild curvature of the lower thoracic spine to the left and degenerative change.
== END 2020-12-18 09:26 | disposition home or self-care (01) ==
LOC: HO.XRAY 09:25
PROVIDERS: PCP Physician Assistant; Visit Provider Physician Assistant
DX: G89.29 Other chronic pain (principal); M54.6 Pain in thoracic spine
CPT/HCPCS: 72072

== ENCOUNTER → 2021-01-14 13:54 | Outpatient (BNVA) | payer MEDICARE, MEDICAID, SELFPAY | PROVIDERS: PCP Physician Assistant; Visit Provider Nurse Practitioner Family | DX: M79.7 Fibromyalgia (principal); M47.816 Spondylosis without myelopathy or radiculopathy, lumbar region; M53.3 Sacrococcygeal disorders, not elsewhere classified; M25.511 Pain in right shoulder; M25.512 Pain in left shoulder | CPT/HCPCS: 99202 ==

== ENCOUNTER 2021-01-20 13:20 | Outpatient (REF) | payer MEDICARE, MEDICAID, SELFPAY ==
--- NOTE | ~2021-01-20 | MM_ITS ---
EXAMINATION: MM SCREENING DIGITAL BREAST TOMOSYNTHESIS, BILATERAL CLINICAL INFORMATION: Screening. Asymptomatic. The lifetime risk of breast cancer based on the Tyrer-Cuzick Model is 5%. COMPARISON: Mammography: 11/07/2019, 05/19/2017, 03/10/2016 TECHNIQUE: Digital breast tomosynthesis is performed in both the craniocaudal and mediolateral oblique views along with computer-aided detection (CAD). Synthesized 2D images are generated from the tomosynthesis. Additional right MLO view is provided. FINDINGS: There are scattered areas of fibroglandular density (ACR BI-RADS breast composition Category b). There are no significant masses, abnormal calcifications, or other abnormalities. MM/MM tomosynthesis screening BI IMPRESSION: No mammographic evidence of malignancy. ASSESSMENT: BI-RADS 1: Negative RECOMMENDATION: Routine annual mammography screening. This patient's information was entered into a reminder system with a target due date for their next mammogram.
== END 2021-01-20 13:21 | disposition home or self-care (01) ==
LOC: HO.MAMMO 13:20
PROVIDERS: PCP Physician Assistant; Visit Provider Nurse Practitioner Family
DX: Z12.31 Encounter for screening mammogram for malignant neoplasm of breast (principal)
CPT/HCPCS: 77063; 77067

== ENCOUNTER 2021-03-24 13:32 | Outpatient (REF) | payer MEDICARE, MEDICAID, SELFPAY ==
[2021-03-24 13:32] VITALS: BP 104/68; BP 112/72; BMI 31.3
[2021-03-24 15:27] LABS: Hematocrit 40.8 % (37.0-47.0); Hemoglobin 13.6 g/dl (12.0-16.0); Mean Corpuscular HGB Conc 33.3 g/dl (31.0-35.0); Mean Corpuscular Hemoglobin 28.8 pg (27.0-33.0); Mean Corpuscular Volume 86.4 fL (80.0-98.0); Mean Platelet Volume 10.6 fL (9.4-12.3); Platelet Count 246 X10*3/uL (160-400); Red Blood Count 4.72 X10*6/uL (4.20-5.50); Red Cell Distribution Width 13.2 % (11.0-16.0); White Blood Count 8.1 X10*3/uL (4.8-10.8)
[2021-03-24 15:41] LABS: Anion Gap 12 (12-20); Blood Urea Nitrogen 16 mg/dL (9-16); Calcium 9.9 mg/dL (8.4-10.2); Carbon Dioxide 29 mmol/L (22-29); Chloride 105 mmol/L (96-108); Estimated Glomerular Filt Rate > 60; Glucose Random 115 mg/dL (60-115); Potassium 5.3 mmol/L (3.3-5.1); Sodium 141 mmol/L (135-145)
== END 2021-03-24 13:33 | disposition home or self-care (01) ==
LOC: HO.LAB 13:32
PROVIDERS: PCP Physician Assistant; Referring Provider Physician Assistant; Visit Provider Internal Medicine Cardiovascular Disease
DX: I50.20 Unspecified systolic (congestive) heart failure (principal); I48.0 Paroxysmal atrial fibrillation; Z95.810 Presence of automatic (implantable) cardiac defibrillator
CPT/HCPCS: 36415; 80048; 85027; 93005; 99212

== ENCOUNTER → 2021-04-01 13:34 | Outpatient (BNVA) | payer MEDICARE, MEDICAID, SELFPAY ==
[2021-03-24 14:16] VITALS: BP 104/68; BP 112/72; BMI 31.3
== END ==
PROVIDERS: Visit Provider Obstetrics & Gynecology
DX: Z13.89 Encounter for screening for other disorder (principal)

== ENCOUNTER 2021-04-14 11:58 | Outpatient (REF) | payer MEDICARE, MEDICAID, SELFPAY ==
[2021-03-24 14:16] VITALS: BP 104/68; BP 112/72; BMI 31.3
[2021-04-14 12:22] LABS: MANUAL DIFF FLAG NO
[2021-04-14 12:47] LABS: Basophils Percent Auto 0.6 % (0-2); Eosinophils Absolute Auto 0.2 X10*3/uL (0.0-0.4); Eosinophils Percent Auto 2.6 % (0-4); Hematocrit 39.6 % (37.0-47.0); Hemoglobin 12.9 g/dl (12.0-16.0); Imm Gran Abs Auto 0.02 X10*3/uL (0.00-0.03); Imm Gran Pct Auto 0.3 % (0.0-0.4); Lymphocytes Percent Auto 31.4 % (20-40); Mean Corpuscular HGB Conc 32.6 g/dl (31.0-35.0); Mean Corpuscular Hemoglobin 28.4 pg (27.0-33.0); Mean Corpuscular Volume 87.2 fL (80.0-98.0); Mean Platelet Volume 10.1 fL (9.4-12.3); Monocytes Absolute Auto 0.6 X10*3/uL (0.1-1.2); Monocytes Percent Auto 8.5 % (2-11); Neutrophils Absolute Auto 3.7 x10*3/uL (2.0-8.3); Neutrophils Percent Auto 56.6 % (45-73); Platelet Count 227 X10*3/uL (160-400); Red Blood Count 4.54 X10*6/uL (4.20-5.50); Red Cell Distribution Width 13.3 % (11.0-16.0); White Blood Count 6.5 X10*3/uL (4.8-10.8)
[2021-04-14 13:22] LABS: Anion Gap 10 (12-20); Blood Urea Nitrogen 13 mg/dL (9-16); Calcium 9.6 mg/dL (8.4-10.2); Carbon Dioxide 31 mmol/L (22-29); Chloride 105 mmol/L (96-108); Estimated Glomerular Filt Rate > 60; Glucose Random 105 mg/dL (60-115); Potassium 4.3 mmol/L (3.3-5.1); Sodium 142 mmol/L (135-145)
[2021-04-14 14:01] LABS: Free T4 (Free Thyroxine) 1.23 ng/dL (0.71-1.85)
[2021-04-15 18:56] LABS: Triiodothyronine T3 Total 95 ng/dL (76-181)
== END 2021-04-14 11:59 | disposition home or self-care (01) ==
LOC: HO.LAB 11:58
PROVIDERS: Internal Medicine Endocrinology, Diabetes & Metabolism; PCP Physician Assistant; Visit Provider Internal Medicine Cardiovascular Disease
DX: E78.5 Hyperlipidemia, unspecified (principal); E05.00 Thyrotoxicosis with diffuse goiter without thyrotoxic crisis or storm
CPT/HCPCS: 36415; 80048; 84439; 84443; 84480; 85025

== ENCOUNTER 2021-05-09 15:38 | Inpatient (IN) | payer MEDICARE, MEDICAID, SELFPAY ==
[2021-03-24 14:16] VITALS: BP 104/68; BP 112/72; BMI 31.3
[2021-05-09] VITALS (11 sets, daily range): BP systolic 87–128; BP diastolic 45–85; PULSE 96–126; RESP 14–19; TEMP 36.2–37; O2SAT 95–100; BMI 30.9; BMI 31.6
--- NOTE | 2021-05-09 | ECG_ITS ---
Test Reason : HIGH HEART RATE Blood Pressure : / mmHG Vent. Rate : 115 BPM Atrial Rate : 000 BPM P-R Int : 000 ms QRS Dur : 120 ms QT Int : 340 ms P-R-T Axes : 000 -57 132 degrees QTc Int : 471 ms Atrial fibrillation with rapid ventricular response with frequent ventricular-paced complexes and with premature ventricular or aberrantly conducted complexes Minimal voltage criteria for LVH, may be normal variant ( [place] product ) Septal infarct , age undetermined Abnormal ECG When compared with ECG of 09-MAY-2021 08:31, No significant changes seen Referred By: Keiko Bonilla Electronically Signed By:LIDIA CHACON
--- NOTE | 2021-05-09 | ECG_ITS ---
Test Reason : CP Blood Pressure : / mmHG Vent. Rate : 126 BPM Atrial Rate : 000 BPM P-R Int : 000 ms QRS Dur : 124 ms QT Int : 372 ms P-R-T Axes : 000 -46 147 degrees QTc Int : 538 ms Atrial fibrillation with rapid ventricular response with ventricular-paced complexes Left axis deviation Non-specific intra-ventricular conduction delay Minimal voltage criteria for LVH, may be normal variant ( [place] product ) Nonspecific ST and T wave abnormality Abnormal ECG When compared with ECG of 09-MAY-2021 17:35, No significant changes seen Referred By: Aishwarya Perez Electronically Signed By:KY HERNANDEZ MD
--- NOTE | ~2021-05-09 | XR_ITS ---
EXAMINATION: XR CHEST CLINICAL INFORMATION: Bradycardia COMPARISON: 08/06/2020 TECHNIQUE: Frontal view of the chest was obtained. FINDINGS: There is stable position of pacemaker battery and leads. Cardiomediastinal silhouette is unremarkable. Lungs are clear without nodules infiltrates or pleural effusion and there is no vascular congestion. XR/XR chest 1V IMPRESSION: No interval change
--- NOTE | 2021-05-09 08:30 | ECG_ITS ---
Test Reason : PALPATATIONS Blood Pressure : / mmHG Vent. Rate : 119 BPM Atrial Rate : 000 BPM P-R Int : 000 ms QRS Dur : 126 ms QT Int : 336 ms P-R-T Axes : 000 -52 160 degrees QTc Int : 473 ms Atrial fibrillation with rapid ventricular response with frequent ventricular-paced complexes Left axis deviation Minimal voltage criteria for LVH, may be normal variant ( [place] product ) Abnormal ECG When compared with ECG of 24-FEB-2020 10:13, Rhythm change Referred By: Generic ED Physician Electronically Signed By:LIDIA CHACON
--- NOTE | 2021-05-09 08:34 | ED_ITS ---
HPI - Arrhythmia/Palpitations General Chief Complaint: Arrhythmia/Palpitations Stated Complaint: Afib Time Seen by Provider: 05/09/21 08:33 Source: patient Mode of arrival: ambulatory Limitations: no limitations History of Present Illness HPI narrative: Patient with known history of afib and ablation, patient has a pacemaker/defibrillator. 4 days ago she noticed that she had a high heart rate with shortness of breath. MD complaint: rapid heart beat Onset (ago): day(s) Duration: intermittent Severity: mild Arrhythmia history: atrial fibrillation Associated symptoms: shortness of breath Related Data Home Medications Medication Instructions Recorded Confirmed acetaminophen 500 mg tablet 1,000 mg PO Q6H PRN Pain (Scale 11/09/19 06/04/21 (Tylenol Extra Strength) Score 1-3) artifi.tears(hypromellose)(PF) 0.3 1 drp ophthalmic (eye) Q4-6H PRN 03/27/20 06/04/21 % eye drops Dry Eyes zolpidem 10 mg tablet 5 mg PO BEDTIME PRN Sleep 05/09/21 06/04/21 Previous Rx's Medication Instructions Recorded clonazepam 0.5 mg tablet (Klonopin) 0.5 mg PO BEDTIME PRN Sleep 30 05/17/21 days #30 tabs benzonatate 100 mg capsule 100 mg PO BID-TID PRN cough #30 05/20/21 caps dabigatran etexilate 150 mg 150 mg PO BID #60 caps 06/09/21 capsule (Pradaxa) sacubitril 49 mg-valsartan 51 mg 1 tab PO BID 90 days #180 tabs 06/12/21 tablet (Entresto) sotalol 80 mg tablet 160 mg PO BID 90 days #360 tabs 06/12/21 furosemide 40 mg tablet 40 mg PO DAILY sob, swelling #90 07/04/21 tabs Allergies Allergy/AdvReac Type Severity Reaction Status Date / Time rivaroxaban [From XARELTO] AdvReac Intermediate LEG EDEMA, Verified 07/10/21 12:05 RASH Review of Systems Constitutional: Constitutional: Reports no additional constitutional complaints Eyes: Eyes: Reports no additional eye complaints ENT: Denies dizziness Cardiovascular: Cardiovascular: Reports no additional cardiovascular complaints Respiratory: Respiratory: Reports as per HPI Gastrointestinal: Gastrointestinal: Reports no additional gastrointestinal complaints Genitourinary: Genitourinary: Reports no additional female genitourinary complaints Musculoskeletal: Musculoskeletal: Reports no additional musculoskeletal complaints Integumentary/Breasts: Skin/Breast: Denies rash Neurologic: Denies dizziness and Denies Sensory deficit (Neuro) Psychiatric: Psychiatric: Denies anxiety [facility] Past Medical History Medical History Biventricular ICD (implantable cardioverter-defibrillator) in place Encounter for monitoring sotalol therapy Graves' disease in remission Heart failure with reduced ejection fraction History of cardioversion HLD (hyperlipidemia) HTN (hypertension) Hypotension arterial Nonischemic cardiomyopathy Obesity (BMI 30-39.9) Osteoporosis screening PAF (paroxysmal atrial fibrillation) SVT (supraventricular tachycardia) Transaminitis Surgical History History of cardiac defibrillator placement History of radiofrequency ablation procedure for cardiac arrhythmia Hx of cardiac catheterization (~06/2017) Hx of tubal ligation Family History Family History Father Stroke Hypertension Mother Hypertension Diabetes Daughter AVM (arteriovenous malformation) Son No problems noted. Sister No problems noted. Brother No problems noted. Brother No problems noted. Brother No problems noted. Brother No problems noted. Social History Social History Household Members: Significant Other Housing: House Do you presently have visiting nurse or other home services: No Alcohol intake: never Patient Tobacco Use Status: Never used Tobacco e-Cigarette/Vaping Use: Never Used Second Hand Smoke Exposure: No service: No Current occupational status: unemployed Cognitive needs: No Hearing needs: No Vision needs: No Physical Exam Vital Signs: Vital Signs: Last Vital Signs Temp 97.8 F 05/12/21 07:56 Pulse 70 05/12/21 07:56 Resp 20 05/12/21 07:56 BP 136/69 05/12/21 07:56 Pulse Ox 98 05/12/21 07:56 O2 Del Method 05/12/21 07:56 O2 Flow Rate 2 05/10/21 10:25 BMI result Body Mass Index 31.5 Const: General: healthy appearing Nutritional Appearance: average body habitus Orientation/consciousness: oriented to person and patient oriented x3 Limitations: no limitations HEENT: Head: Yes normal to inspection Ears: external ears normal General nose exam: Normal external nose present Mouth: Normal oral and palatal mucosa present and oropharynx normal Throat: Yes posterior oropharynx normal Eyes: General: appearance normal, both eyes and all related structures Neck: Other: supple Neck: Yes normal visual inspection Chest: Chest palpation & inspection: normal inspection of the chest Resp: Auscultation: clear to auscultation bilaterally Cardio: Other: tachycardia, IRRR Jugular venous distension: no JVD GI: Inspection: Yes normal to inspection Palpation (GI): Soft to palpation, nontender and No hepatosplenomegaly present Auscultation: normal bowel sounds : General: Yes no CVA tenderness Back/Spine/Pelvis: Back: no CVA tenderness Skin: General skin exam: no rashes or lesions noted Neuro: General: oriented to person and patient oriented x3 Cranial nerves: Yes CN's II-XII intact bilaterally Motor exam (neuro): 5/5 motor strength present throughout Sensory Exam: No Sensory deficit (Neuro) Extrem: General: Yes normal to inspection Psych: Appearance: grossly normal Course Reevaluation(s) Reevaluation #1: Discussed with Dr. Rosales who want oral Sotalol despite soft blood pressure will admit for possible cardioversion. Time: 10:48 MDM - Arrhythmia/Palpitations Lab Data Result diagrams: 05/10/21 06:22 05/12/21 05:50 Labs: Lab Results 05/09/21 05/09/21 05/09/21 Range/Units 08:42 08:42 08:42 WBC 7.3 (4.8-10.8) X10*3/uL RBC 4.47 (4.20-5.50) X10*6/uL Hgb 13.0 (12.0-16.0) g/dl Hct 39.1 (37.0-47.0) % MCV 87.5 (80.0-98.0) fL MCH 29.1 (27.0-33.0) pg MCHC 33.2 (31.0-35.0) g/dl RDW 13.5 (11.0-16.0) % Plt Count 241 (160-400) X10*3/uL MPV 10.4 (9.4-12.3) fL Immature Gran % (Auto) 0.3 (0.0-0.4) % Neut % (Auto) 54.0 (45-73) % Lymph % (Auto) 36.7 (20-40) % [place] % (Auto) 7.0 (2-11) % Eos % (Auto) 1.6 (0-4) % Baso % (Auto) 0.4 (0-2) % Lymph # (Auto) 2.7 (1.2-4.9) X10*3/uL [place] # (Auto) 0.5 (0.1-1.2) X10*3/uL Eos # (Auto) 0.1 (0.0-0.4) X10*3/uL Baso # (Auto) 0.0 (0.0-0.2) X10*3/uL Abs Immat Gran (auto) 0.02 (0.00-0.03) X10*3/uL Absolute Neuts (auto) 4.0 (2.0-8.3) x10*3/uL Absolute Nucleated RBC 0.000 (0.0-0.012) X10*3/uL Nucleated RBC % (auto) 0.0 (0.0-0.2) /100WBC PT (9.9-13.0) SEC INR (0.9-1.1) Sodium 142 (135-145) mmol/L Potassium 4.4 (3.3-5.1) mmol/L Chloride 105 (96-108) mmol/L Carbon Dioxide 30 H (22-29) mmol/L Anion Gap 11 L (12-20) BUN 14 (9-16) mg/dL Creatinine 0.98 (0.5-1.4) mg/dL Estim Creat Clear Calc 71.4 Estimated GFR 57 Random Glucose 135 H (60-115) mg/dL Calcium 9.3 (8.4-10.2) mg/dL Magnesium 2.1 (1.6-2.6) mg/dL Troponin I High Sens 6.5 (<3.5-17.0) ng/L B-Natriuretic Peptide 529 H (<100) pg/mL Urine Color Urine Appearance Urine pH (5.0-8.0) Ur Specific [place] (1.005-1.025) Urine Protein (NEG-TRACE) MG/DL Urine Glucose (UA) (NEG) MG/DL Urine Ketones (NEG) MG/DL Urine Blood (NEG) Urine Nitrite (NEG) Ur Leukocyte Esterase (NEG) Urine RBC (0) /HPF Urine WBC (0-4) /HPF Ur Squamous Epith Cells /LPF Urine Bacteria /LPF Ur Oval Fat Bodies (NONE) COVID-19 ([place]IDA) (Negative) COVID-19 Clin Com 05/09/21 05/09/21 05/09/21 Range/Units 08:42 10:33 16:45 WBC (4.8-10.8) X10*3/uL RBC (4.20-5.50) X10*6/uL Hgb (12.0-16.0) g/dl Hct (37.0-47.0) % MCV (80.0-98.0) fL MCH (27.0-33.0) pg MCHC (31.0-35.0) g/dl RDW (11.0-16.0) % Plt Count (160-400) X10*3/uL MPV (9.4-12.3) fL Immature Gran % (Auto) (0.0-0.4) % Neut % (Auto) (45-73) % Lymph % (Auto) (20-40) % [place] % (Auto) (2-11) % Eos % (Auto) (0-4) % Baso % (Auto) (0-2) % Lymph # (Auto) (1.2-4.9) X10*3/uL [place] # (Auto) (0.1-1.2) X10*3/uL Eos # (Auto) (0.0-0.4) X10*3/uL Baso # (Auto) (0.0-0.2) X10*3/uL Abs Immat Gran (auto) (0.00-0.03) X10*3/uL Absolute Neuts (auto) (2.0-8.3) x10*3/uL Absolute Nucleated RBC (0.0-0.012) X10*3/uL Nucleated RBC % (auto) (0.0-0.2) /100WBC PT 14.0 H (9.9-13.0) SEC INR 1.2 H (0.9-1.1) Sodium (135-145) mmol/L Potassium (3.3-5.1) mmol/L Chloride (96-108) mmol/L Carbon Dioxide (22-29) mmol/L Anion Gap (12-20) BUN (9-16) mg/dL Creatinine (0.5-1.4) mg/dL Estim Creat Clear Calc Estimated GFR Random Glucose (60-115) mg/dL Calcium (8.4-10.2) mg/dL Magnesium (1.6-2.6) mg/dL Troponin I High Sens (<3.5-17.0) ng/L B-Natriuretic Peptide (<100) pg/mL Urine Color YELLOW Urine Appearance CLEAR Urine pH 6.5 (5.0-8.0) Ur Specific [place] 1.010 (1.005-1.025) Urine Protein NEG (NEG-TRACE) MG/DL Urine Glucose (UA) NEG (NEG) MG/DL Urine Ketones NEG (NEG) MG/DL Urine Blood TRACE (NEG) Urine Nitrite NEG (NEG) Ur Leukocyte Esterase 1+ H (NEG) Urine RBC 5-9 H (0) /HPF Urine WBC 1-4 (0-4) /HPF Ur Squamous Epith Cells 1+ /LPF Urine Bacteria 1+ /LPF Ur Oval Fat Bodies NOTED (NONE) COVID-19 ([place]) Negative (Negative) COVID-19 Clin Com See Note 05/10/21 05/10/21 05/11/21 Range/Units 06:22 06:22 08:15 WBC 7.0 (4.8-10.8) X10*3/uL RBC 4.36 (4.20-5.50) X10*6/uL Hgb 12.5 (12.0-16.0) g/dl Hct 37.9 (37.0-47.0) % MCV 86.9 (80.0-98.0) fL MCH 28.7 (27.0-33.0) pg MCHC 33.0 (31.0-35.0) g/dl RDW 13.6 (11.0-16.0) % Plt Count 224 (160-400) X10*3/uL MPV 10.7 (9.4-12.3) fL Immature Gran % (Auto) (0.0-0.4) % Neut % (Auto) (45-73) % Lymph % (Auto) (20-40) % [place] % (Auto) (2-11) % Eos % (Auto) (0-4) % Baso % (Auto) (0-2) % Lymph # (Auto) (1.2-4.9) X10*3/uL [place] # (Auto) (0.1-1.2) X10*3/uL Eos # (Auto) (0.0-0.4) X10*3/uL Baso # (Auto) (0.0-0.2) X10*3/uL Abs Immat Gran (auto) (0.00-0.03) X10*3/uL Absolute Neuts (auto) (2.0-8.3) x10*3/uL Absolute Nucleated RBC 0.000 (0.0-0.012) X10*3/uL Nucleated RBC % (auto) 0.0 (0.0-0.2) /100WBC PT (9.9-13.0) SEC INR (0.9-1.1) Sodium 140 142 (135-145) mmol/L Potassium 4.8 5.1 (3.3-5.1) mmol/L Chloride 105 107 (96-108) mmol/L Carbon Dioxide 30 H 30 H (22-29) mmol/L Anion Gap 10 L 10 L (12-20) BUN 14 12 (9-16) mg/dL Creatinine 0.84 0.76 (0.5-1.4) mg/dL Estim Creat Clear Calc 84.4 93.1 Estimated GFR > 60 > 60 Random Glucose 108 99 (60-115) mg/dL Calcium 9.1 9.1 (8.4-10.2) mg/dL Magnesium 2.3 2.5 (1.6-2.6) mg/dL Troponin I High Sens (<3.5-17.0) ng/L B-Natriuretic Peptide (<100) pg/mL Urine Color Urine Appearance Urine pH (5.0-8.0) Ur Specific [place] (1.005-1.025) Urine Protein (NEG-TRACE) MG/DL Urine Glucose (UA) (NEG) MG/DL Urine Ketones (NEG) MG/DL Urine Blood (NEG) Urine Nitrite (NEG) Ur Leukocyte Esterase (NEG) Urine RBC (0) /HPF Urine WBC (0-4) /HPF Ur Squamous Epith Cells /LPF Urine Bacteria /LPF Ur Oval Fat Bodies (NONE) COVID-19 ([place]) (Negative) COVID-19 Clin Com 05/12/21 05/12/21 Range/Units 05:50 05:50 WBC (4.8-10.8) X10*3/uL RBC (4.20-5.50) X10*6/uL Hgb (12.0-16.0) g/dl Hct (37.0-47.0) % MCV (80.0-98.0) fL MCH (27.0-33.0) pg MCHC (31.0-35.0) g/dl RDW (11.0-16.0) % Plt Count (160-400) X10*3/uL MPV (9.4-12.3) fL Immature Gran % (Auto) (0.0-0.4) % Neut % (Auto) (45-73) % Lymph % (Auto) (20-40) % [place] % (Auto) (2-11) % Eos % (Auto) (0-4) % Baso % (Auto) (0-2) % Lymph # (Auto) (1.2-4.9) X10*3/uL [place] # (Auto) (0.1-1.2) X10*3/uL Eos # (Auto) (0.0-0.4) X10*3/uL Baso # (Auto) (0.0-0.2) X10*3/uL Abs Immat Gran (auto) (0.00-0.03) X10*3/uL Absolute Neuts (auto) (2.0-8.3) x10*3/uL Absolute Nucleated RBC (0.0-0.012) X10*3/uL Nucleated RBC % (auto) (0.0-0.2) /100WBC PT (9.9-13.0) SEC INR (0.9-1.1) Sodium 141 (135-145) mmol/L Potassium 4.5 (3.3-5.1) mmol/L Chloride 107 (96-108) mmol/L Carbon Dioxide 29 (22-29) mmol/L Anion Gap 10 L (12-20) BUN 12 (9-16) mg/dL Creatinine 0.75 (0.5-1.4) mg/dL Estim Creat Clear Calc 94.4 Estimated GFR > 60 Random Glucose 90 (60-115) mg/dL Calcium 9.1 (8.4-10.2) mg/dL Magnesium 2.3 Cancelled (1.6-2.6) mg/dL Troponin I High Sens (<3.5-17.0) ng/L B-Natriuretic Peptide (<100) pg/mL Urine Color Urine Appearance Urine pH (5.0-8.0) Ur Specific [place] (1.005-1.025) Urine Protein (NEG-TRACE) MG/DL Urine Glucose (UA) (NEG) MG/DL Urine Ketones (NEG) MG/DL Urine Blood (NEG) Urine Nitrite (NEG) Ur Leukocyte Esterase (NEG) Urine RBC (0) /HPF Urine WBC (0-4) /HPF Ur Squamous Epith Cells /LPF Urine Bacteria /LPF Ur Oval Fat Bodies (NONE) COVID-19 ([place]) (Negative) COVID-19 Clin Com Imaging Data Chest x-ray: Radiologist's impression: FINDINGS: There is stable position of pacemaker battery and leads. Cardiomediastinal silhouette is unremarkable. Lungs are clear without nodules infiltrates or pleural effusion and there is no vascular congestion. XR/XR chest 1V IMPRESSION: No interval change ? ECG Data Attestation: I personally reviewed and interpreted this ECG as follows: Interpretation: atrial fibrillation, RBBB, no st or twave changes Critical Care Time Critical Care Time Attestation: I spent 30 minutes of critical care, with interventions, assessments, speaking to patient, consultants, and family. Discharge Plan Discharge Anticipated Discharge Date/Time: 05/12/21 10:19 Patient Disposition: Home, Self-Care Discharge Diagnosis: Afib RVR Referrals: Jeremy Smith PA-C [Primary Care Provider] - 1 Week Doug Rosales MD [Physician] - 1 Week Discharge Medications: Continued zolpidem 10 mg tablet 5 mg PO BEDTIME PRN (Reason: Sleep) acetaminophen [Tylenol Extra Strength] 500 mg tablet 1,000 mg PO Q6H PRN (Reason: Pain (Scale Score 1-3)) artifi.tears(hypromellose)(PF) 0.3 % drops 1 drp ophthalmic (eye) Q4-6H PRN (Reason: Dry Eyes) Discontinued sotalol 80 mg tablet 120 mg PO BID 90 Days Qty: 270 1RF Entresto 97-103 mg tablet 1 tab PO BID Qty: 180 1RF furosemide 40 mg tablet 40 mg PO BID No Action clonazepam [Klonopin] 0.5 mg tablet 0.5 mg PO BEDTIME PRN (Reason: Sleep) 30 Days Qty: 30 0RF Rx Instructions: administer 30 minutes before bedtime Pradaxa 150 mg capsule 150 mg PO BID Qty: 60 5RF Entresto 49-51 mg tablet 1 tab PO BID 90 Days Qty: 180 1RF sotalol 80 mg tablet 160 mg PO BID 90 Days Qty: 360 1RF furosemide 40 mg tablet 40 mg PO DAILY Qty: 90 3RF benzonatate 100 mg capsule 100 mg PO BID-TID PRN (Reason: cough) Qty: 30 0RF Discharge Orders: Discharge Order (Routine); Ordered 05/12/21 Ordered By: Aishwarya Perez Diet: advance to usual diet Activity on Discharge: As tolerated Stand Alone Forms: Patient Portal Discharge page Care Plan Goals: remain in normal sinus rhythm Health Concerns: Atrial fibrillation with rapid ventricular response Plan of Treatment: Follow-up with your callisthenics instructor as needed Continue taking medications as prescribed Assessment: see discharge summary Discharge Date/Time: 05/12/21 13:20
[2021-05-09 08:47] LABS: MANUAL DIFF FLAG NO
[2021-05-09] MEDS: Metoprolol Tartrate 5 MG/5 ML VIAL IVPUSH (08:49)
[2021-05-09 08:53] LABS: Basophils Percent Auto 0.4 % (0-2); Eosinophils Absolute Auto 0.1 X10*3/uL (0.0-0.4); Eosinophils Percent Auto 1.6 % (0-4); Hematocrit 39.1 % (37.0-47.0); Imm Gran Abs Auto 0.02 X10*3/uL (0.00-0.03); Imm Gran Pct Auto 0.3 % (0.0-0.4); Lymphocytes Absolute Auto 2.7 X10*3/uL (1.2-4.9); Lymphocytes Percent Auto 36.7 % (20-40); Mean Corpuscular HGB Conc 33.2 g/dl (31.0-35.0); Mean Corpuscular Hemoglobin 29.1 pg (27.0-33.0); Mean Corpuscular Volume 87.5 fL (80.0-98.0); Mean Platelet Volume 10.4 fL (9.4-12.3); Monocytes Absolute Auto 0.5 X10*3/uL (0.1-1.2); Platelet Count 241 X10*3/uL (160-400); Red Blood Count 4.47 X10*6/uL (4.20-5.50); Red Cell Distribution Width 13.5 % (11.0-16.0); White Blood Count 7.3 X10*3/uL (4.8-10.8)
[2021-05-09 09:05] LABS: INTERNATIONAL NORM RATIO 1.2 (0.9-1.1)
[2021-05-09 09:10] LABS: Anion Gap 11 (12-20); Blood Urea Nitrogen 14 mg/dL (9-16); Calcium 9.3 mg/dL (8.4-10.2); Carbon Dioxide 30 mmol/L (22-29); Chloride 105 mmol/L (96-108); Creatinine Clr Calc Pharmacy 71.4; Estimated Glomerular Filt Rate 57; Glucose Random 135 mg/dL (60-115); Potassium 4.4 mmol/L (3.3-5.1); Sodium 142 mmol/L (135-145)
[2021-05-09 09:13] LABS: B Type Natriuretic Peptide 529 pg/mL (<100); Troponin-I High Sensitivity 6.5 ng/L (<3.5-17.0)
[2021-05-09 10:41] LABS: Appearance Urine CLEAR; Color Urine YELLOW; Glucose Urine UA NEG (NEG); Leukocyte Esterase Urine 1+ (NEG); Nitrite Urine NEG (NEG); PH 6.5 (5.0-8.0); UACC Culture Trigger YES; Urine Blood TRACE (NEG); Urine Ketones NEG (NEG); Urine Protein NEG (NEG-TRACE)
[2021-05-09] MEDS: Sotalol HCL 80 MG TABLET 40 MG PO (11:02)
[2021-05-09 11:08] LABS: Bacteria Urine 1+ /LPF; Oval Fat Bodies Urine NOTED; Squamous Epithelial Cell Urine 1+ /LPF
--- NOTE | 2021-05-09 11:24 | PHA.MEDREC ---
MED REC COMPLETE, NO ISSUES Pharmacy Consult ? Medication Reconciliation Pharmacy has completed the medication reconciliation.
--- NOTE | 2021-05-09 15:49 | PM.IMHP ---
History of Present Illness Date of Service: 05/09/21 Attending physician on admission: Raj[facility] Chief Complaint: palpitations, dyspnea This is a 65-year-old female with history atrial fibrillation, CHF, hypertension, arthritis presents to the emergency department with shortness of breath and palpitations. She has noticed three days of dyspnea primarily with exertion. She has also experienced what she describes as chest discomfort, although does not have any at this time. She typically does not have any symptoms related to atrial fibrillation. On arrival she was noted to be in atrial fibrillation with rapid ventricular response. She received a dose of IV metoprolol and an additional dose of sotalol while in the ED. Her breathing and palpitations have improved somewhat. Lab work and imaging was unremarkable. The case was discussed with cardiology who recommended to admit the patient for possible cardioversion. Received covid 19 Moderna vaccine and booster Review of Systems Review of Systems: Yes all other systems are reviewed and are negative Constitutional: Constitutional: Denies chills and Denies fever(s) Cardiovascular: Cardiovascular: Reports palpitations, Reports dyspnea on exertion and Denies orthopnea Respiratory: Respiratory: Reports dyspnea on exertion Gastrointestinal: Gastrointestinal: Denies abdominal pain Musculoskeletal: Musculoskeletal: Reports back pain Endocrine: Endocrine: Reports palpitations [facility] Medical History Biventricular ICD (implantable cardioverter-defibrillator) in place Graves' disease in remission Heart failure with reduced ejection fraction History of cardioversion HLD (hyperlipidemia) HTN (hypertension) Nonischemic cardiomyopathy Obesity (BMI 30-39.9) Osteoporosis screening PAF (paroxysmal atrial fibrillation) SVT (supraventricular tachycardia) Transaminitis Functional capacity: independent ambulation Family History Father Stroke Hypertension Mother Hypertension Diabetes Daughter AVM (arteriovenous malformation) Son No problems noted. Sister No problems noted. Brother No problems noted. Brother No problems noted. Brother No problems noted. Brother No problems noted. Surgical History History of cardiac defibrillator placement History of radiofrequency ablation procedure for cardiac arrhythmia Hx of cardiac catheterization (~06/2017) Hx of tubal ligation Social History Household Members: Spouse Housing: House Do you presently have visiting nurse or other home services: No Alcohol intake: never Patient Tobacco Use Status: Never used Tobacco e-Cigarette/Vaping Use: Never Used Second Hand Smoke Exposure: No Advance Directives: No Advance Directives Information Provided: No service: No Current occupational status: unemployed Meds Allergies Allergy/AdvReac Type Severity Reaction Status Date / Time rivaroxaban [From XARELTO] AdvReac Intermediate LEG EDEMA, Verified 04/16/21 11:50 RASH Active Medications: Current Medications Acetaminophen (Acetaminophen 325 Mg Tablet) 650 mg PO Q6H PRN PRN Reason: Pain, Mild (Pain Scale 1-3) Clonazepam (Clonazepam 0.5 Mg Tablet) 0.5 mg PO BEDTIME PRN PRN Reason: Sleep Dabigatran (Dabigatran Etexilate Mesylate 150 Mg Capsule) 150 mg PO BID ANTHONY Docusate Sodium (Docusate Sodium 100 Mg Capsule) 100 mg PO DAILY PRN PRN Reason: Constipation Furosemide (Furosemide 40 Mg Tablet) 40 mg PO BID ANTHONY; Protocol Non-Formulary Medication (Artifi.Tears(Hypromellose)(Pf)) 1 drop EYE-BOTH Q4-6H PRN PRN Reason: Dry Eyes Pharmacy Consult (Consult Rx Perform Med Rec) 1 each MISCELLANE ONCE PRN PRN Reason: Consult order Sacubitril/Valsartan (Sacubitril/Valsartan 97/103 1 Tab Tablet) 1 tab PO BID ANTHONY; Protocol Sodium Chloride (0.9 % Sodium Chloride Flush 3 Ml Syringe) 3 ml IVFLUSH QSHIFT [facility] Sotalol HCl (Sotalol Hcl 80 Mg Tablet) 160 mg PO BID ANTHONY Zolpidem Tartrate (Zolpidem Tartrate 5 Mg Tablet) 5 mg PO BEDTIME PRN PRN Reason: Sleep Home Medications Medication Instructions Recorded Confirmed Last Taken Type acetaminophen 500 mg tablet 1,000 mg PO Q6H PRN 11/09/19 05/09/21 Unknown History (Tylenol Extra Strength) artifi.tears(hypromellose)(PF) 0.3 1 drp OPHTHALMIC (EYE) Q4-6H PRN 03/27/20 05/09/21 Unknown History % eye drops furosemide 40 mg tablet 40 mg PO BID tab 03/24/21 05/09/21 05/09/21 History clonazepam 0.5 mg tablet (Klonopin) 0.5 mg PO BEDTIME PRN 05/09/21 05/09/21 Unknown History zolpidem 10 mg tablet 5 mg PO BEDTIME PRN 05/09/21 05/09/21 Unknown History Physical Exam Vital Signs and Narrative: Vital Signs: Last Vital Signs Temp 98 F 05/09/21 15:47 Pulse 107 H 05/09/21 15:47 Resp 19 05/09/21 15:47 BP 99/61 05/09/21 15:47 Pulse Ox 95 05/09/21 15:47 BMI result Body Mass Index 30.9 Const: General: cooperative, comfortable, no acute distress, alert and awake Nutritional Appearance: average body habitus Orientation/consciousness: patient oriented x3 Resp: Effort & Inspection: normal respiratory effort and able to speak in complete sentences Auscultation: clear to auscultation bilaterally, no rales, no rhonchi and no wheezes Cardio: Other: tachycardic, irregular, no murmurs appreciated GI: Inspection: No distended Palpation (GI): Soft to palpation and nontender Neuro: General: patient oriented x3 Extrem: General: Yes no pedal edema Results Labs CBC and Chem 7: 05/09/21 08:42 05/09/21 08:42 Labs: Laboratory Results - last 24 hr 05/09/21 05/09/21 05/09/21 08:42 08:42 08:42 MCV 87.5 MCH 29.1 MCHC 33.2 RDW 13.5 Plt Count 241 MPV 10.4 Immature Gran % (Auto) 0.3 Neut % (Auto) 54.0 Lymph % (Auto) 36.7 [place] % (Auto) 7.0 Eos % (Auto) 1.6 Baso % (Auto) 0.4 Lymph # (Auto) 2.7 [place] # (Auto) 0.5 Eos # (Auto) 0.1 Baso # (Auto) 0.0 Abs Immat Gran (auto) 0.02 Absolute Neuts (auto) 4.0 Absolute Nucleated RBC 0.000 Nucleated RBC % (auto) 0.0 PT INR Anion Gap 11 L Estim Creat Clear Calc 71.4 Estimated GFR 57 Random Glucose 135 H Calcium 9.3 Troponin I High Sens 6.5 B-Natriuretic Peptide 529 H Urine Color Urine Appearance Urine pH Ur Specific [place] Urine Protein Urine Glucose (UA) Urine Ketones Urine Blood Urine Nitrite Ur Leukocyte Esterase Urine RBC Urine WBC Ur Squamous Epith Cells Urine Bacteria Ur Oval Fat Bodies 05/09/21 05/09/21 08:42 10:33 MCV MCH MCHC RDW Plt Count MPV Immature Gran % (Auto) Neut % (Auto) Lymph % (Auto) [place] % (Auto) Eos % (Auto) Baso % (Auto) Lymph # (Auto) [place] # (Auto) Eos # (Auto) Baso # (Auto) Abs Immat Gran (auto) Absolute Neuts (auto) Absolute Nucleated RBC Nucleated RBC % (auto) PT 14.0 H INR 1.2 H Anion Gap Estim Creat Clear Calc Estimated GFR Random Glucose Calcium Troponin I High Sens B-Natriuretic Peptide Urine Color YELLOW Urine Appearance CLEAR Urine pH 6.5 Ur Specific [place] 1.010 Urine Protein NEG Urine Glucose (UA) NEG Urine Ketones NEG Urine Blood TRACE Urine Nitrite NEG Ur Leukocyte Esterase 1+ H Urine RBC 5-9 H Urine WBC 1-4 Ur Squamous Epith Cells 1+ Urine Bacteria 1+ Ur Oval Fat Bodies NOTED Imaging Radiologist's Impressions: Impressions Chest X-Ray 05/09/21 08:58 IMPRESSION: No interval change Assessment and Plan (1) Atrial fibrillation with rapid ventricular response: Status: Acute Plan This is a 65 year old female with history of PAF s/p multiple ablations on Pradaxa, combined systolic and diastolic CHF s/p AICD, HTN, OA who presented to the ED with dyspnea and palpitations found to be in atrial fibrillation with rapid ventricular response Atrial fibrillation with rapid ventricular response Received a dose of IV metoprolol and additional dose of sotalol Heart rate better controlled at this time Case discussed with Cardiology, plan to increase dose of sotalol to 160 mg b.i.d. 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 Tylenol DVT prophylaxis-Pradaxa Code status-full code Attending - Dr. Del Cid Given unstable HR and symptomatic afib, patient will likely need 2 midnight stay in hospital for management of atrial fibrillation with RVR and possible cardioversion Quality Stroke Does the patient have a stroke diagnosis?: No VTE Prior VTE?: No VTE Risk Level:: Medical - moderate - high VTE Device Contraindication: N/A - Device Ordered VTE Drug Contraindication: N/A - Med Ordered
[2021-05-09 16:14] LABS: Magnesium 2.1 mg/dL (1.6-2.6)
[2021-05-09 17:05] LABS: COVID-19 Test Negative (Negative); IDNOW Serial# 16C4AD1C
--- NOTE | 2021-05-09 17:33 | P.CONCA_ITS ---
History of Present Illness History of Present Illness Date of Service: 05/09/21 Chief complaint: Afib with RVR Narrative: This is a cardiology consultation regarding atrial fibrillation with rapid rate. Patient generally sees Dr. Brito. She has a history of cardiomyopathy as well as paroxysmal atrial fibrillation. She also has a biventricular ICD in place. According to patient, she has had many cardioversions as well as ablations in the past. Currently she is maintained on sotalol at 120 mg b.i.d.. In spite of this, she has been having palpitations for the last few days. She presented to the ER as advised by our nurse practitioner. EKG performed shows atrial fibrillation with rapid rate. We increase the sotalol dose further and she got 160 mg this morning. Continues to be in atrial fibrillation. Rate is somewhat variable and ranges between 110-120/Min. She feels palpitations and overall just does not feel good. A nonspecific discomfort type sensation in the chest. We have been asked to see her for further evaluation. Otherwise, she is on appropriate anticoagulation with Pradaxa. Review of Systems Review of Systems: Yes all other systems are reviewed and are negative Constitutional: Constitutional: Reports as per HPI Eyes: Eyes: Reports as per HPI ENT: Reports as per HPI Cardiovascular: Cardiovascular: Reports as per HPI, Denies acrocyanosis, Denies cool extremities, Denies chest pain, Denies leg edema, Denies lightheadedness, Reports palpitations and Reports dyspnea Respiratory: Respiratory: Reports as per HPI, Reports no additional respiratory complaints and Reports dyspnea Gastrointestinal: Gastrointestinal: Reports as per HPI and Reports no additional gastrointestinal complaints Genitourinary: Genitourinary: Reports as per HPI Musculoskeletal: Musculoskeletal: Reports no additional musculoskeletal complaints and Reports as per HPI Integumentary/Breasts: Skin/Breast: Reports system reviewed and no additional complaints, except as docu Neurologic: Reports system reviewed and no additional complaints, except as documented and Reports as per HPI Psychiatric: Psychiatric: Reports no additional psychiatric complaints and Reports as per HPI Endocrine: Endocrine: Reports no additional endocrine complaints, Reports as per HPI and Reports palpitations Hematologic/Lymphatic: Hematologic/Lymphatic: Reports no additional hematologic/lymphatic complaints and Reports as per HPI Allergic/Immunologic: Allergic/Immunologic: Reports no additional allergic /immunologic complaints and Reports as per HPI [facility] Past Medical History Medical History Biventricular ICD (implantable cardioverter-defibrillator) in place Graves' disease in remission Heart failure with reduced ejection fraction History of cardioversion HLD (hyperlipidemia) HTN (hypertension) Nonischemic cardiomyopathy Obesity (BMI 30-39.9) Osteoporosis screening PAF (paroxysmal atrial fibrillation) SVT (supraventricular tachycardia) Transaminitis Functional capacity: independent ambulation Family History Family History Father Stroke Hypertension Mother Hypertension Diabetes Daughter AVM (arteriovenous malformation) Son No problems noted. Sister No problems noted. Brother No problems noted. Brother No problems noted. Brother No problems noted. Brother No problems noted. Surgical History Surgical History History of cardiac defibrillator placement History of radiofrequency ablation procedure for cardiac arrhythmia Hx of cardiac catheterization (~06/2017) Hx of tubal ligation Social History Social History Household Members: Spouse Housing: House Do you presently have visiting nurse or other home services: No Alcohol intake: never Patient Tobacco Use Status: Never used Tobacco e-Cigarette/Vaping Use: Never Used Second Hand Smoke Exposure: No Advance Directives: No Advance Directives Information Provided: No service: No Current occupational status: unemployed Meds Allergies Allergy/AdvReac Type Severity Reaction Status Date / Time rivaroxaban [From XARELTO] AdvReac Intermediate LEG EDEMA, Verified 04/16/21 11:50 RASH Active Medications: Current Medications Acetaminophen (Acetaminophen 325 Mg Tablet) 650 mg PO Q6H PRN PRN Reason: Pain, Mild (Pain Scale 1-3) Artificial Tears (Artificial Tears 15 Ml Drops) 1 drop EYE-BOTH Q4H PRN PRN Reason: Dry Eyes Clonazepam (Clonazepam 0.5 Mg Tablet) 0.5 mg PO BEDTIME PRN PRN Reason: Sleep Dabigatran (Dabigatran Etexilate Mesylate 150 Mg Capsule) 150 mg PO BID ANTHONY Docusate Sodium (Docusate Sodium 100 Mg Capsule) 100 mg PO DAILY PRN PRN Reason: Constipation Furosemide (Furosemide 40 Mg Tablet) 40 mg PO BID ANTHONY; Protocol Pharmacy Consult (Consult Rx Perform Med Rec) 1 each MISCELLANE ONCE PRN PRN Reason: Consult order Sacubitril/Valsartan (Sacubitril/Valsartan 97/103 1 Tab Tablet) 1 tab PO BID ANTHONY; Protocol Sodium Chloride (0.9 % Sodium Chloride Flush 3 Ml Syringe) 3 ml IVFLUSH QSHIFT ANTHONY Sotalol HCl (Sotalol Hcl 80 Mg Tablet) 160 mg PO BID ANTHONY Zolpidem Tartrate (Zolpidem Tartrate 5 Mg Tablet) 5 mg PO BEDTIME PRN PRN Reason: Sleep Home Medications Medication Instructions Recorded Confirmed Last Taken Type acetaminophen 500 mg tablet 1,000 mg PO Q6H PRN 11/09/19 05/09/21 Unknown History (Tylenol Extra Strength) artifi.tears(hypromellose)(PF) 0.3 1 drp OPHTHALMIC (EYE) Q4-6H PRN 03/27/20 05/09/21 Unknown History % eye drops furosemide 40 mg tablet 40 mg PO BID tab 03/24/21 05/09/21 05/09/21 History clonazepam 0.5 mg tablet (Klonopin) 0.5 mg PO BEDTIME PRN 05/09/21 05/09/21 Unknown History zolpidem 10 mg tablet 5 mg PO BEDTIME PRN 05/09/21 05/09/21 Unknown History Physical Exam Vital Signs: Vital Signs: Last Vital Signs Temp 97.4 F 05/09/21 16:35 Pulse 111 H 05/09/21 16:35 Resp 16 05/09/21 16:35 BP 87/49 L 05/09/21 16:35 Pulse Ox 98 05/09/21 16:35 BMI result Body Mass Index 30.9 Const: General: comfortable HEENT: Other: Unremarkable Head: Yes normal to inspection Neck: Neck: Yes normal visual inspection Chest: Chest palpation & inspection: normal inspection of the chest Resp: Auscultation: clear to auscultation bilaterally Cardio: Other: Pulse-Rapid, irregular. Palpation: normal PMI Heart sounds: S1 normal heart sound present, S2 normal heart sound present, no gallops, no murmurs and no rubs GI: Palpation (GI): Soft to palpation Back/Spine/Pelvis: Other: unremarkable Skin: General skin exam: no rashes or lesions noted Neuro: Cognition (Neuro): normal cognition Extrem: General: Yes normal to inspection Psych: Mental Status: mental status grossly normal Objective Labs and Meds Result diagrams: 05/09/21 08:42 05/09/21 08:42 Lab results: Laboratory Results - last 24 hr 05/09/21 05/09/21 05/09/21 08:42 08:42 08:42 WBC 7.3 RBC 4.47 Hgb 13.0 Hct 39.1 MCV 87.5 MCH 29.1 MCHC 33.2 RDW 13.5 Plt Count 241 MPV 10.4 Immature Gran % (Auto) 0.3 Neut % (Auto) 54.0 Lymph % (Auto) 36.7 Brown % (Auto) 7.0 Eos % (Auto) 1.6 Baso % (Auto) 0.4 Lymph # (Auto) 2.7 Brown # (Auto) 0.5 Eos # (Auto) 0.1 Baso # (Auto) 0.0 Abs Immat Gran (auto) 0.02 Absolute Neuts (auto) 4.0 Absolute Nucleated RBC 0.000 Nucleated RBC % (auto) 0.0 PT INR Sodium 142 Potassium 4.4 Chloride 105 Carbon Dioxide 30 H Anion Gap 11 L BUN 14 Creatinine 0.98 Estim Creat Clear Calc 71.4 Estimated GFR 57 Random Glucose 135 H Calcium 9.3 Magnesium 2.1 Troponin I High Sens 6.5 B-Natriuretic Peptide 529 H Urine Color Urine Appearance Urine pH Ur Specific [place] Urine Protein Urine Glucose (UA) Urine Ketones Urine Blood Urine Nitrite Ur Leukocyte Esterase Urine RBC Urine WBC Ur Squamous Epith Cells Urine Bacteria Ur Oval Fat Bodies COVID-19 ([facility]) COVID-19 Clin Com 05/09/21 05/09/21 05/09/21 08:42 10:33 16:45 WBC RBC Hgb Hct MCV MCH MCHC RDW Plt Count MPV Immature Gran % (Auto) Neut % (Auto) Lymph % (Auto) Brown % (Auto) Eos % (Auto) Baso % (Auto) Lymph # (Auto) Brown # (Auto) Eos # (Auto) Baso # (Auto) Abs Immat Gran (auto) Absolute Neuts (auto) Absolute Nucleated RBC Nucleated RBC % (auto) PT 14.0 H INR 1.2 H Sodium Potassium Chloride Carbon Dioxide Anion Gap BUN Creatinine Estim Creat Clear Calc Estimated GFR Random Glucose Calcium Magnesium Troponin I High Sens B-Natriuretic Peptide Urine Color YELLOW Urine Appearance CLEAR Urine pH 6.5 Ur Specific Brom[place] 1.010 Urine Protein NEG Urine Glucose (UA) NEG Urine Ketones NEG Urine Blood TRACE Urine Nitrite NEG Ur Leukocyte Esterase 1+ H Urine RBC 5-9 H Urine WBC 1-4 Ur Squamous Epith Cells 1+ Urine Bacteria 1+ Ur Oval Fat Bodies NOTED COVID-19 ([facility]) Negative COVID-19 Clin Com See Note ECG Interpretation: EKG shows atrial fibrillation with rapid rate as well as some paced beats. Rate about 119min. QT difficult to calculate due to irregular rhythm as well as paced beats. Seems to be in the upper 400s. However, accurate assessment is somewhat difficult. Her QRS also wider than normal even in natively conducted beats. Imaging Radiologist's impression: Impressions Chest X-Ray 05/09/21 08:58 IMPRESSION: No interval change Assessment and Plan (1) Atrial fibrillation with rapid ventricular response: Status: Acute (2) Biventricular ICD (implantable cardioverter-defibrillator) in place: Status: Acute (3) Hypotension arterial: Status: Acute (4) Heart failure with reduced ejection fraction: Status: Acute Plan Recurrent atrial fibrillation with rapid rate with history of prior car dioversions, ablations as well as maintenance of sotalol therapy. According to his note, there is a history of adverse effects from amiodarone. Today morning she took Sotalol 120 mg at home and she got an additional 40 mg sotalol in the ER. In spite of the she still in atrial fibrillation rapid rate. Blood pressure is on the lower side most likely from the atrial fibrillation rapid rate with a background of cardiomyopathy. We can hold off on Entresto. Will try to continue 160 mg b.i.d. tonight and tomorrow morning. Then we can plan cardioversion. Continue Pradaxa without interruption. Labs-cardiac BNP is 529. Last year, 1192. High sensitivity troponin 6.5. Echocardiogram last year, LVEF 35-40%. Moderate diastolic dysfunction. Restricted posterior mitral leaflet. EKGs to be obtained per sotalol protocol. Discussed with Keiko Bonilla. Procedures Date of Service Date of Service: 05/09/21
[2021-05-09] MEDS: 0.9 % Sodium Chloride Flush 3 ML SYRINGE IVFLUSH (21:11)
[2021-05-09] MEDS: Dabigatran Etexilate Mesylate 150 MG CAPSULE PO (21:11)
[2021-05-10] VITALS (15 sets, daily range): BP systolic 91–138; BP diastolic 51–98; PULSE 73–140; RESP 15–21; TEMP 36.1–36.7; O2SAT 95–99; BMI 31.5
--- NOTE | 2021-05-10 | ECG_ITS ---
Test Reason : cp Blood Pressure : / mmHG Vent. Rate : 074 BPM Atrial Rate : 074 BPM P-R Int : 196 ms QRS Dur : 102 ms QT Int : 444 ms P-R-T Axes : 073 -79 051 degrees QTc Int : 492 ms Normal sinus rhythm with Ventricular-paced rhythm Abnormal ECG When compared to the previous EKG of Normal sinus rhythm has replaced Atrial fibrillation with rapid ventricular response Referred By: Aishwarya Perez Electronically Signed By:KY HERNANDEZ MD
--- NOTE | 2021-05-10 | ECG_ITS ---
Test Reason : CP Blood Pressure : / mmHG Vent. Rate : 114 BPM Atrial Rate : 000 BPM P-R Int : 000 ms QRS Dur : 120 ms QT Int : 366 ms P-R-T Axes : 000 -57 143 degrees QTc Int : 504 ms Atrial fibrillation with rapid ventricular response with frequent ventricular-paced complexes Left axis deviation Minimal voltage criteria for LVH, may be normal variant ( Leroy product ) Septal infarct , age undetermined Abnormal ECG When compared to the previous EKG of No significant changes seen Referred By: Aishwarya Perez Electronically Signed By:KY HERNANDEZ MD
[2021-05-10] MEDS: Metoprolol Tartrate 5 MG/5 ML VIAL IVPUSH (02:39)
[2021-05-10 07:03] LABS: Anion Gap 10 (12-20); Blood Urea Nitrogen 14 mg/dL (9-16); Calcium 9.1 mg/dL (8.4-10.2); Carbon Dioxide 30 mmol/L (22-29); Chloride 105 mmol/L (96-108); Creatinine Clr Calc Pharmacy 84.4; Estimated Glomerular Filt Rate > 60; Glucose Random 108 mg/dL (60-115); Magnesium 2.3 mg/dL (1.6-2.6); Potassium 4.8 mmol/L (3.3-5.1); Sodium 140 mmol/L (135-145)
[2021-05-10 07:10] LABS: Hematocrit 37.9 % (37.0-47.0); Hemoglobin 12.5 g/dl (12.0-16.0); Mean Corpuscular Hemoglobin 28.7 pg (27.0-33.0); Mean Corpuscular Volume 86.9 fL (80.0-98.0); Mean Platelet Volume 10.7 fL (9.4-12.3); Platelet Count 224 X10*3/uL (160-400); Red Blood Count 4.36 X10*6/uL (4.20-5.50); Red Cell Distribution Width 13.6 % (11.0-16.0)
[2021-05-10] MEDS: 0.9 % Sodium Chloride Flush 3 ML SYRINGE IVFLUSH ×3 (09:11→21:30)
--- NOTE | 2021-05-10 09:25 | MHC.SHP ---
Pre-Procedural Eval Section A Date of Service: 05/10/21 Section B Chief Complaint: Afib with RVR Allergies: Allergies Allergy/AdvReac Type Severity Reaction Status Date / Time rivaroxaban [From XARELTO] AdvReac Intermediate LEG EDEMA, Verified 04/16/21 11:50 RASH Plan I have reviewed the history and physical and performed a pertinent physical examination on my patient. No changes have occurred unless specified.
[2021-05-10] MEDS: Dabigatran Etexilate Mesylate 150 MG CAPSULE PO ×2 (10:00→21:31)
--- NOTE | 2021-05-10 10:08 | P.CONAN_ITS ---
HPI - Anesthesia Eval Consult details Narrative: Cardioversion for rapid a-fib PMFSH Active Problems Active Problems: All Active Problems (Updated 05/09/21 @ 17:44 by Doug Rosales MD) Hypotension arterial (Acute) Atrial fibrillation with rapid ventricular response (Acute) Obese (Acute) Menopause (Acute) Bilateral shoulder pain (Acute) Sacroiliac joint pain (Acute) Spondylosis of lumbar spine (Acute) Chronic thoracic back pain (Acute) Osteoporosis screening (Acute) Encounter for annual wellness exam in Medicare patient (Acute) Mild depression (Acute) Cough (Acute) Colon cancer screening (Acute) Borderline high cholesterol (Acute) Insomnia (Acute) GARETH (generalized anxiety disorder) (Acute) Fibromyalgia (Acute) Rotator cuff impingement syndrome of left shoulder (Acute) Well woman exam (Acute) Paroxysmal atrial fibrillation (Acute) Heart failure with reduced ejection fraction (Acute) Biventricular ICD (implantable cardioverter-defibrillator) in place (Acute) SVT (supraventricular tachycardia) (Acute) HLD (hyperlipidemia) (Acute) HTN (hypertension) (Acute) Subacromial bursitis of right shoulder joint (Acute) Graves' disease in remission (Acute) Obesity (BMI 30-39.9) (Acute) Past Medical History Medical History Biventricular ICD (implantable cardioverter-defibrillator) in place Graves' disease in remission Heart failure with reduced ejection fraction History of cardioversion HLD (hyperlipidemia) HTN (hypertension) Nonischemic cardiomyopathy Obesity (BMI 30-39.9) Osteoporosis screening PAF (paroxysmal atrial fibrillation) SVT (supraventricular tachycardia) Transaminitis Functional capacity: independent ambulation Family History Family History Father Stroke Hypertension Mother Hypertension Diabetes Daughter AVM (arteriovenous malformation) Son No problems noted. Sister No problems noted. Brother No problems noted. Brother No problems noted. Brother No problems noted. Brother No problems noted. Surgical History Surgical History History of cardiac defibrillator placement History of radiofrequency ablation procedure for cardiac arrhythmia Hx of cardiac catheterization (~06/2017) Hx of tubal ligation Social History Social History Household Members: Significant Other Housing: House Do you presently have visiting nurse or other home services: No Alcohol intake: never Patient Tobacco Use Status: Never used Tobacco e-Cigarette/Vaping Use: Never Used Second Hand Smoke Exposure: No service: No Current occupational status: unemployed Meds Allergies Allergy/AdvReac Type Severity Reaction Status Date / Time rivaroxaban [From XARELTO] AdvReac Intermediate LEG EDEMA, Verified 04/16/21 11:50 RASH Active Medications: Current Medications Acetaminophen (Acetaminophen 325 Mg Tablet) 650 mg PO Q6H PRN PRN Reason: Pain, Mild (Pain Scale 1-3) Artificial Tears (Artificial Tears 15 Ml Drops) 1 drop EYE-BOTH Q4H PRN PRN Reason: Dry Eyes Clonazepam (Clonazepam 0.5 Mg Tablet) 0.5 mg PO BEDTIME PRN PRN Reason: Sleep Dabigatran (Dabigatran Etexilate Mesylate 150 Mg Capsule) 150 mg PO BID [facility] Last Admin: 05/09/21 21:11 Dose: 150 mg Documented by: Docusate Sodium (Docusate Sodium 100 Mg Capsule) 100 mg PO DAILY PRN PRN Reason: Constipation Furosemide (Furosemide 40 Mg Tablet) 40 mg PO BID [facility]; Protocol Pharmacy Consult (Consult Rx Perform Med Rec) 1 each MISCELLANE ONCE PRN PRN Reason: Consult order Sacubitril/Valsartan (Sacubitril/Valsartan 97/103 1 Tab Tablet) 1 tab PO BID [facility]; Protocol Sodium Chloride (0.9 % Sodium Chloride Flush 3 Ml Syringe) 3 ml IVFLUSH QSHIFT [facility] Last Admin: 05/10/21 09:11 Dose: 3 ml Documented by: Sotalol HCl (Sotalol Hcl 80 Mg Tablet) 160 mg PO BID [facility] Last Admin: 05/09/21 21:12 Dose: Not Given Documented by: Zolpidem Tartrate (Zolpidem Tartrate 5 Mg Tablet) 5 mg PO BEDTIME PRN PRN Reason: Sleep Home Medications Medication Instructions Recorded Confirmed Last Taken Type acetaminophen 500 mg tablet 1,000 mg PO Q6H PRN 11/09/19 05/09/21 Unknown History (Tylenol Extra Strength) artifi.tears(hypromellose)(PF) 0.3 1 drp OPHTHALMIC (EYE) Q4-6H PRN 03/27/20 05/09/21 Unknown History % eye drops furosemide 40 mg tablet 40 mg PO BID tab 03/24/21 05/09/21 05/09/21 History clonazepam 0.5 mg tablet (Klonopin) 0.5 mg PO BEDTIME PRN 05/09/21 05/09/21 Unknown History zolpidem 10 mg tablet 5 mg PO BEDTIME PRN 05/09/21 05/09/21 Unknown History Exam Exam Date and Time: May 10, 2021 1008 Height,Weight and Vital Signs: Height 5 ft 10 in Weight 99.79 kg Last Vital Signs Temp 97.7 F 05/10/21 09:52 Pulse 140 H 05/10/21 09:52 Resp 20 05/10/21 09:52 BP 98/56 L 05/10/21 09:52 Pulse Ox 99 05/10/21 09:52 Pertinent Lab Results Pertinent Lab Results: Laboratory Tests 05/09/21 05/09/21 05/09/21 08:42 08:42 08:42 WBC 7.3 RBC 4.47 Hgb 13.0 Hct 39.1 MCV 87.5 MCH 29.1 MCHC 33.2 RDW 13.5 Plt Count 241 MPV 10.4 Immature Gran % (Auto) 0.3 Neut % (Auto) 54.0 Lymph % (Auto) 36.7 [place] % (Auto) 7.0 Eos % (Auto) 1.6 Baso % (Auto) 0.4 Lymph # (Auto) 2.7 [place] # (Auto) 0.5 Eos # (Auto) 0.1 Baso # (Auto) 0.0 Abs Immat Gran (auto) 0.02 Absolute Neuts (auto) 4.0 Absolute Nucleated RBC 0.000 Nucleated RBC % (auto) 0.0 PT INR Sodium 142 Potassium 4.4 Chloride 105 Carbon Dioxide 30 H Anion Gap 11 L BUN 14 Creatinine 0.98 Estim Creat Clear Calc 71.4 Estimated GFR 57 Random Glucose 135 H Calcium 9.3 Magnesium 2.1 Troponin I High Sens 6.5 B-Natriuretic Peptide 529 H Urine Color Urine Appearance Urine pH Ur Specific [place] Urine Protein Urine Glucose (UA) Urine Ketones Urine Blood Urine Nitrite Ur Leukocyte Esterase Urine RBC Urine WBC Ur Squamous Epith Cells Urine Bacteria Ur Oval Fat Bodies COVID-19 ([facility]) COVID-19 Clin Com 05/09/21 05/09/21 05/09/21 08:42 10:33 16:45 WBC RBC Hgb Hct MCV MCH MCHC RDW Plt Count MPV Immature Gran % (Auto) Neut % (Auto) Lymph % (Auto) [place] % (Auto) Eos % (Auto) Baso % (Auto) Lymph # (Auto) [place] # (Auto) Eos # (Auto) Baso # (Auto) Abs Immat Gran (auto) Absolute Neuts (auto) Absolute Nucleated RBC Nucleated RBC % (auto) PT 14.0 H INR 1.2 H Sodium Potassium Chloride Carbon Dioxide Anion Gap BUN Creatinine Estim Creat Clear Calc Estimated GFR Random Glucose Calcium Magnesium Troponin I High Sens B-Natriuretic Peptide Urine Color YELLOW Urine Appearance CLEAR Urine pH 6.5 Ur Specific [place] 1.010 Urine Protein NEG Urine Glucose (UA) NEG Urine Ketones NEG Urine Blood TRACE Urine Nitrite NEG Ur Leukocyte Esterase 1+ H Urine RBC 5-9 H Urine WBC 1-4 Ur Squamous Epith Cells 1+ Urine Bacteria 1+ Ur Oval Fat Bodies NOTED COVID-19 ([facility]) Negative COVID-19 Clin Com See Note 05/10/21 05/10/21 06:22 06:22 WBC 7.0 RBC 4.36 Hgb 12.5 Hct 37.9 MCV 86.9 MCH 28.7 MCHC 33.0 RDW 13.6 Plt Count 224 MPV 10.7 Immature Gran % (Auto) Neut % (Auto) Lymph % (Auto) [place] % (Auto) Eos % (Auto) Baso % (Auto) Lymph # (Auto) [place] # (Auto) Eos # (Auto) Baso # (Auto) Abs Immat Gran (auto) Absolute Neuts (auto) Absolute Nucleated RBC 0.000 Nucleated RBC % (auto) 0.0 PT INR Sodium 140 Potassium 4.8 Chloride 105 Carbon Dioxide 30 H Anion Gap 10 L BUN 14 Creatinine 0.84 Estim Creat Clear Calc 84.4 Estimated GFR > 60 Random Glucose 108 Calcium 9.1 Magnesium 2.3 Troponin I High Sens B-Natriuretic Peptide Urine Color Urine Appearance Urine pH Ur Specific [place] Urine Protein Urine Glucose (UA) Urine Ketones Urine Blood Urine Nitrite Ur Leukocyte Esterase Urine RBC Urine WBC Ur Squamous Epith Cells Urine Bacteria Ur Oval Fat Bodies COVID-19 ([facility]) COVID-19 Clin Com Airway Mallampati Class: II TM Dist: >3cm Neck ROM: Full Denture: Upper Heart: IRRR Lungs: CTA Assessment and Plan Assessment Anesthesia Assessment: Anesthesia Plan Discussed Final Anesthetic Review NPO: Yes ASA Class: III Final Preanesthetic Review: No Changes in Pt Med Stat, Meds/Allgs Chart Reviewed, Consent Obtained/Reviewed and Anes Risks/Benef Reviewed Patient Risk: High Procedure Risk: Low Anesthetic Plan Anesthetic Plan: MAC: Disposition: Standard PACU
--- NOTE | 2021-05-10 10:20 | ECG_ITS ---
Test Reason : post cardioversion Blood Pressure : / mmHG Vent. Rate : 078 BPM Atrial Rate : 078 BPM P-R Int : 210 ms QRS Dur : 100 ms QT Int : 416 ms P-R-T Axes : 092 247 135 degrees QTc Int : 474 ms Atrial-sensed ventricular-paced rhythm with prolonged AV conduction Abnormal ECG When compared with ECG of 10-MAY-2021 08:14, Vent. rate has decreased BY 36 BPM Referred By: Lidia Chacon Electronically Signed By:LIDIA CHACON
--- NOTE | 2021-05-10 10:30 | HO.CARDIVERS ---
Cardioversion Procedure Note Cardioversion Date of Procedure: 05/10/2021 Ordering Provider: Dr. Rosales Performing Provider: Dr. Rosales Indication for Procedure: Highly symptomatic atrial fibrillation rapid rate with cardiomyopathy. Pre-Op Diagnosis: Atrial fibrillation with rapid rate Post-Op Diagnosis: Sinus rhythm CHAN findings (if CHAN Performed): Not performed History: See detailed H and P Consent: Informed consent obtained Procedure: After informed consent was obtained, patient was taken to the PACU. The patient was then positioned appropriately. The cardioversion pads were placed in anteroposterior position. Once under anesthesia, 120 joules of synchronized shock was administered. The rhythm converted from atrial fibrillation to sinus rhythm. Patient remained in sinus rhythm after the end of procedure. Complications: None Impression: Successful cardioversion from atrial fibrillation with rapid rate to sinus rhythm. Recommendations: We will increase sotalol to 160 mg b.i.d.. Will need to follow our sotalol protocol for dose increase. Discussed with Aishwarya Perez.
[2021-05-10] MEDS: Sotalol HCL 80 MG TABLET 160 MG PO ×2 (10:43→21:30)
--- NOTE | 2021-05-10 10:56 | P.PNCA_ITS ---
Subjective Subjective Date of Service: 05/10/21 Interval history: She was seen before, during as well as after cardioversion. Before the procedure, she was still having palpitations and just did not feel good. However after the cardioversion when she was in sinus rhythm she stated that she was feeling so much better. Review of Systems Review of Systems Yes all other systems are reviewed and are negative Constitutional: Reports as per HPI Eyes: Reports as per HPI Reports as per HPI Cardiovascular: Reports as per HPI, Denies acrocyanosis, Denies cool extremities, Denies chest pain, Denies leg edema, Denies lightheadedness, Denies palpitations and Denies dyspnea Respiratory: Reports as per HPI, Reports no additional respiratory complaints and Denies dyspnea Gastrointestinal: Reports as per HPI and Reports no additional gastrointestinal complaints Genitourinary: Reports as per HPI Musculoskeletal: Reports no additional musculoskeletal complaints and Reports as per HPI Skin/Breast: Reports system reviewed and no additional complaints, except as docu Reports system reviewed and no additional complaints, except as documented and Reports as per HPI Psychiatric: Reports no additional psychiatric complaints and Reports as per HPI Endocrine: Reports no additional endocrine complaints, Reports as per HPI and Denies palpitations Hematologic/Lymphatic: Reports no additional hematologic/lymphatic complaints and Reports as per HPI Allergic/Immunologic: Reports no additional allergic/immunologic complaints and Reports as per HPI Physical Exam Vital Signs: Last Vital Signs Temp 97.0 F 05/10/21 10:40 Pulse 74 05/10/21 10:48 Resp 18 05/10/21 10:48 BP 108/61 05/10/21 10:48 Pulse Ox 98 05/10/21 10:48 BMI result Body Mass Index 31.5 Const General: comfortable HEENT Other: Unremarkable Head: Yes normal to inspection Neck Neck: Yes normal visual inspection Chest Chest palpation & inspection: normal inspection of the chest Resp Auscultation: clear to auscultation bilaterally Cardio Palpation: normal PMI Heart sounds: S1 normal heart sound present, S2 normal heart sound present, no gallops, no murmurs and no rubs GI Palpation (GI): Soft to palpation Back/Spine/Pelvis Other: unremarkable Skin General skin exam: no rashes or lesions noted Neuro Cognition (Neuro): normal cognition Extrem General: Yes normal to inspection Psych Mental Status: mental status grossly normal Objective Labs and Meds Result diagrams: 05/10/21 06:22 05/10/21 06:22 Lab results: Laboratory Results - last 24 hr 05/09/21 05/09/21 05/09/21 08:42 10:33 16:45 WBC RBC Hgb Hct MCV MCH MCHC RDW Plt Count MPV Absolute Nucleated RBC Nucleated RBC % (auto) Sodium Potassium Chloride Carbon Dioxide Anion Gap BUN Creatinine Estim Creat Clear Calc Estimated GFR Random Glucose Calcium Magnesium 2.1 Urine RBC 5-9 H Urine WBC 1-4 Ur Squamous Epith Cells 1+ Urine Bacteria 1+ Ur Oval Fat Bodies NOTED COVID-19 ([facility]) Negative COVID-19 Clin Com See Note 05/10/21 05/10/21 06:22 06:22 WBC 7.0 RBC 4.36 Hgb 12.5 Hct 37.9 MCV 86.9 MCH 28.7 MCHC 33.0 RDW 13.6 Plt Count 224 MPV 10.7 Absolute Nucleated RBC 0.000 Nucleated RBC % (auto) 0.0 Sodium 140 Potassium 4.8 Chloride 105 Carbon Dioxide 30 H Anion Gap 10 L BUN 14 Creatinine 0.84 Estim Creat Clear Calc 84.4 Estimated GFR > 60 Random Glucose 108 Calcium 9.1 Magnesium 2.3 Urine RBC Urine WBC Ur Squamous Epith Cells Urine Bacteria Ur Oval Fat Bodies COVID-19 ([facility]) COVID-19 Clin Com Progress Note: A&P Assessment and plan (1) Atrial fibrillation with rapid ventricular response: Status: Acute (2) Biventricular ICD (implantable cardioverter-defibrillator) in place: Status: Acute (3) Hypotension arterial: Status: Acute (4) Heart failure with reduced ejection fraction: Status: Acute Plan Patient underwent cardioversion today which is being dictated separately. At home, she takes sotalol 120 mg b.i.d.. When she came is today morning, we gave her extra 40 mg so she got 160 mg today morning. However she continued to be in atrial fibrillation with rapid rate. Her pressure was also quite low. Her Entresto was held. Before last night's dose, EKG was performed but as the rate was quite rapid we could not clearly say what the QT was. Automated reading was more than 500 milliseconds and manual calculation was very difficult. Hence that dose was held. Today morning, she is getting sotalol 160 mg after the cardioversion as the QTC is well below 500 milliseconds. We will continue this dose through the weekend. Sotalol will need to be monitored through EKGs per our hospital protocol for QT prolongation. As she already has a Bi V ICD she should not have any bradycardia. Otherwise, continue Pradaxa without changes. With regard Entresto, once the blood pressure is better we can resume her dose. If necessary, may need to give lower dose. Labs-cardiac BNP is 529. Last year, 1192. High sensitivity troponin 6.5. Echocardiogram last year, LVEF 35-40%. Moderate diastolic dysfunction. Res tricted posterior mitral leaflet. Discussed with Aishwarya Perez. Fall Risk Details Current Medications: Current Medications Acetaminophen (Acetaminophen 325 Mg Tablet) 650 mg PO Q6H PRN PRN Reason: Pain, Mild (Pain Scale 1-3) Artificial Tears (Artificial Tears 15 Ml Drops) 1 drop EYE-BOTH Q4H PRN PRN Reason: Dry Eyes Clonazepam (Clonazepam 0.5 Mg Tablet) 0.5 mg PO BEDTIME PRN PRN Reason: Sleep Dabigatran (Dabigatran Etexilate Mesylate 150 Mg Capsule) 150 mg PO BID [facility] Last Admin: 05/10/21 10:00 Dose: 150 mg Documented by: Docusate Sodium (Docusate Sodium 100 Mg Capsule) 100 mg PO DAILY PRN PRN Reason: Constipation Furosemide (Furosemide 40 Mg Tablet) 40 mg PO BID [facility]; Protocol Pharmacy Consult (Consult Rx Perform Med Rec) 1 each MISCELLANE ONCE PRN PRN Reason: Consult order Sacubitril/Valsartan (Sacubitril/Valsartan 97/103 1 Tab Tablet) 1 tab PO BID [facility]; Protocol Sodium Chloride (0.9 % Sodium Chloride Flush 3 Ml Syringe) 3 ml IVFLUSH QSHIFT [facility] Last Admin: 05/10/21 09:11 Dose: 3 ml Documented by: Sotalol HCl (Sotalol Hcl 80 Mg Tablet) 160 mg PO BID [facility] Last Admin: 05/10/21 10:43 Dose: 160 mg Documented by: Zolpidem Tartrate (Zolpidem Tartrate 5 Mg Tablet) 5 mg PO BEDTIME PRN PRN Reason: Sleep Time Spent With Patient Time: Total time spent is greater than 50% in coordination of care (as documented) at patient's floor/unit and/or counseling patient: Progress Note: Quality Stroke Does the patient have a stroke diagnosis?: No Procedures Date of Service Date of Service: 05/10/21
--- NOTE | 2021-05-10 13:29 | HO.PM.IMPN ---
Subjective Subjective Date of Service: 05/10/21 Review of Systems Follow up afib rvr no chest pain or sob sitting up on the side of the bed better after cardioversion Physical Exam Vital Signs: Vital Signs: Last Vital Signs Temp 97.9 F 05/10/21 11:08 Pulse 76 05/10/21 11:08 Resp 18 05/10/21 11:08 BP 119/62 05/10/21 11:08 Pulse Ox 98 05/10/21 11:08 BMI result Body Mass Index 31.5 Appearing in no acute distress lung sounds are clear to auscultation heart regular rate rhythm, clear S1, S2 positive bowel sounds, abdomen is soft, nontender neuro patient is alert x3, no focal deficits Objective Data Active Medications Acetaminophen (Acetaminophen 325 Mg Tablet) 650 mg PO Q6H PRN PRN Reason: Pain, Mild (Pain Scale 1-3) Artificial Tears (Artificial Tears 15 Ml Drops) 1 drop EYE-BOTH Q4H PRN PRN Reason: Dry Eyes Clonazepam (Clonazepam 0.5 Mg Tablet) 0.5 mg PO BEDTIME PRN PRN Reason: Sleep Dabigatran (Dabigatran Etexilate Mesylate 150 Mg Capsule) 150 mg PO BID [facility] Last Admin: 05/10/21 10:00 Dose: 150 mg Documented by: DIONI Docusate Sodium (Docusate Sodium 100 Mg Capsule) 100 mg PO DAILY PRN PRN Reason: Constipation Furosemide (Furosemide 40 Mg Tablet) 40 mg PO BID [facility]; Protocol Pharmacy Consult (Consult Rx Perform Med Rec) 1 each MISCELLANE ONCE PRN PRN Reason: Consult order Sacubitril/Valsartan (Sacubitril/Valsartan 97/103 1 Tab Tablet) 1 tab PO BID [facility]; Protocol Sodium Chloride (0.9 % Sodium Chloride Flush 3 Ml Syringe) 3 ml IVFLUSH QSHIFT [facility] Last Admin: 05/10/21 09:11 Dose: 3 ml Documented by: JEWEL Sotalol HCl (Sotalol Hcl 80 Mg Tablet) 160 mg PO BID [facility] Last Admin: 05/10/21 10:43 Dose: 160 mg Documented by: DIONI Zolpidem Tartrate (Zolpidem Tartrate 5 Mg Tablet) 5 mg PO BEDTIME PRN PRN Reason: Sleep Labs CBC & Chem 7: 05/10/21 06:22 05/10/21 06:22 Labs: Laboratory Results - last 24 hr 05/09/21 05/09/21 05/10/21 08:42 16:45 06:22 MCV MCH MCHC RDW Plt Count MPV Absolute Nucleated RBC Nucleated RBC % (auto) Anion Gap 10 L Estim Creat Clear Calc 84.4 Estimated GFR > 60 Random Glucose 108 Calcium 9.1 Magnesium 2.1 2.3 COVID-19 ([facility]) Negative COVID-19 Clin Com See Note 05/10/21 06:22 MCV 86.9 MCH 28.7 MCHC 33.0 RDW 13.6 Plt Count 224 MPV 10.7 Absolute Nucleated RBC 0.000 Nucleated RBC % (auto) 0.0 Anion Gap Estim Creat Clear Calc Estimated GFR Random Glucose Calcium Magnesium COVID-19 ([facility]) COVID-19 Clin Com Microbiology Microbiology Results: Microbiology 05/09/21 Unknown Urine Culture - Final Urine clean catch - Urine victor top Assessment and Plan (1) Atrial fibrillation with rapid ventricular response: Status: Acute Plan This is a 65 year old female with history of PAF s/p multiple ablations on Pradaxa, combined systolic and diastolic CHF s/p AICD, HTN, OA who presented to the ED with dyspnea and palpitations found to be in atrial fibrillation with rapid ventricular response Atrial fibrillation with rapid ventricular response Received a dose of IV metoprolol and additional dose of sotalol Heart rate better controlled at this time Case discussed with Cardiology, plan to increase dose of sotalol to 160 mg b.i.d. 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 Tylenol DVT prophylaxis-Pradaxa Code status-full code Attending - Dr. Chamorro Patient requires continued hospitalization as patient is status post cardioversion and will need to have increased dose of Sotalol monitored Quality Stroke Does the patient have a stroke diagnosis?: No VTE Prior VTE?: No VTE Risk Level:: Medical - moderate - high VTE Device Contraindication: N/A - Device Ordered VTE Drug Contraindication: N/A - Med Ordered
[2021-05-10] MEDS: clonazePAM 0.5 MG TABLET PO (21:31)
--- NOTE | 2021-05-11 | ECG_ITS ---
Test Reason : sotolol Blood Pressure : / mmHG Vent. Rate : 070 BPM Atrial Rate : 070 BPM P-R Int : 168 ms QRS Dur : 158 ms QT Int : 510 ms P-R-T Axes : 066 269 065 degrees QTc Int : 550 ms AV dual-paced rhythm Abnormal ECG When compared to the previous EKG of No significant changes seen Referred By: Aishwarya Perez Electronically Signed By:KY HERNANDEZ MD
--- NOTE | 2021-05-11 | ECG_ITS ---
Test Reason : sotolol Blood Pressure : / mmHG Vent. Rate : 071 BPM Atrial Rate : 071 BPM P-R Int : 156 ms QRS Dur : 148 ms QT Int : 484 ms P-R-T Axes : 091 -85 071 degrees QTc Int : 525 ms AV dual-paced rhythm Abnormal ECG When compared to the previous EKG of No significant changes seen Referred By: Aishwarya Perez Electronically Signed By:KY HERNANDEZ MD
--- NOTE | 2021-05-11 | ECG_ITS ---
Test Reason : sotalol change Blood Pressure : / mmHG Vent. Rate : 072 BPM Atrial Rate : 072 BPM P-R Int : 156 ms QRS Dur : 148 ms QT Int : 452 ms P-R-T Axes : 103 -86 068 degrees QTc Int : 495 ms Atrial-paced rhythm Left axis deviation Right bundle branch block Possible Lateral infarct , age undetermined Abnormal ECG When compared with ECG of 10-MAY-2021 10:25, Electronic atrial pacemaker has replaced Electronic ventricular pacemaker Referred By: Aishwarya Perez Electronically Signed By:LIDIA CHACON
--- NOTE | 2021-05-11 | ECG_ITS ---
Test Reason : CP Blood Pressure : / mmHG Vent. Rate : 072 BPM Atrial Rate : 072 BPM P-R Int : 198 ms QRS Dur : 116 ms QT Int : 480 ms P-R-T Axes : 100 -80 067 degrees QTc Int : 525 ms AV dual-paced rhythm Abnormal ECG When compared to the previous EKG of Atrial-paced rhythm is now Present Referred By: Aishwarya Perez Electronically Signed By:KY HERNANDEZ MD
[2021-05-11 03:58] VITALS: BP 109/53; PULSE 73; RESP 18; TEMP 36.6; O2SAT 97
[2021-05-11 07:29] VITALS: BP 122/52; PULSE 73; RESP 18; TEMP 36.8; O2SAT 98
[2021-05-11 08:49] LABS: Anion Gap 10 (12-20); Blood Urea Nitrogen 12 mg/dL (9-16); Calcium 9.1 mg/dL (8.4-10.2); Carbon Dioxide 30 mmol/L (22-29); Chloride 107 mmol/L (96-108); Creatinine Clr Calc Pharmacy 93.1; Estimated Glomerular Filt Rate > 60; Glucose Random 99 mg/dL (60-115); Magnesium 2.5 mg/dL (1.6-2.6); Potassium 5.1 mmol/L (3.3-5.1); Sodium 142 mmol/L (135-145)
[2021-05-11] MEDS: Dabigatran Etexilate Mesylate 150 MG CAPSULE PO ×2 (10:02→21:28)
[2021-05-11] MEDS: Sotalol HCL 80 MG TABLET 160 MG PO ×2 (10:02→21:28)
--- NOTE | 2021-05-11 10:26 | HO.POSTANES ---
Post Anesthesia Evaluation Post Anesthesia Evaluation Vital Signs: Vital Signs Temp Pulse Resp BP Pulse Ox 05/11/21 07:29 98.3 F 73 18 122/52 L 98 05/11/21 03:58 97.8 F 73 18 109/53 L 97 05/10/21 22:55 97.7 F 74 16 114/55 L 97 Anesthesia: Monitored Mental Status: Awake Pain Control: Satisfactory Nausea/Vomiting: None Hydration: Adequate Anesthesia-Related Issues: No Anes. Related Issues
[2021-05-11] MEDS: 0.9 % Sodium Chloride Flush 3 ML SYRINGE IVFLUSH ×3 (10:39→21:31)
--- NOTE | 2021-05-11 11:01 | P.PNCA_ITS ---
Subjective Subjective Date of Service: 05/11/21 Interval history: She states that she is feeling good. Yesterday, she underwent cardioversion and converted to sinus rhythm. Review of Systems Review of Systems Yes all other systems are reviewed and are negative Constitutional: Reports as per HPI Eyes: Reports as per HPI Reports as per HPI Cardiovascular: Reports as per HPI, Denies acrocyanosis, Denies cool extremities, Denies chest pain, Denies leg edema, Denies lightheadedness, Denies palpitations and Denies dyspnea Respiratory: Reports as per HPI, Reports no additional respiratory complaints and Denies dyspnea Gastrointestinal: Reports as per HPI and Reports no additional gastrointestinal complaints Genitourinary: Reports as per HPI Musculoskeletal: Reports no additional musculoskeletal complaints and Reports as per HPI Skin/Breast: Reports system reviewed and no additional complaints, except as docu Reports system reviewed and no additional complaints, except as documented and Reports as per HPI Psychiatric: Reports no additional psychiatric complaints and Reports as per HPI Endocrine: Reports no additional endocrine complaints, Reports as per HPI and Denies palpitations Hematologic/Lymphatic: Reports no additional hematologic/lymphatic complaints and Reports as per HPI Allergic/Immunologic: Reports no additional allergic/immunologic complaints and Reports as per HPI Physical Exam Vital Signs: Last Vital Signs Temp 98.3 F 05/11/21 07:29 Pulse 73 05/11/21 07:29 Resp 18 05/11/21 07:29 BP 122/52 L 05/11/21 07:29 Pulse Ox 98 05/11/21 07:29 BMI result Body Mass Index 31.5 Const General: comfortable HEENT Other: Unremarkable Head: Yes normal to inspection Neck Neck: Yes normal visual inspection Chest Chest palpation & inspection: normal inspection of the chest Resp Auscultation: clear to auscultation bilaterally Cardio Palpation: normal PMI Heart sounds: S1 normal heart sound present, S2 normal heart sound present, no gallops, no murmurs and no rubs GI Palpation (GI): Soft to palpation Back/Spine/Pelvis Other: unremarkable Skin General skin exam: no rashes or lesions noted Neuro Cognition (Neuro): normal cognition Extrem General: Yes normal to inspection Psych Mental Status: mental status grossly normal Objective Labs and Meds Result diagrams: 05/10/21 06:22 05/11/21 08:15 Lab results: Laboratory Results - last 24 hr 05/11/21 08:15 Sodium 142 Potassium 5.1 Chloride 107 Carbon Dioxide 30 H Anion Gap 10 L BUN 12 Creatinine 0.76 Estim Creat Clear Calc 93.1 Estimated GFR > 60 Random Glucose 99 Calcium 9.1 Magnesium 2.5 Progress Note: A&P Assessment and plan (1) Atrial fibrillation with rapid ventricular response: Status: Acute (2) Biventricular ICD (implantable cardioverter-defibrillator) in place: Status: Acute (3) Hypotension arterial: Status: Acute (4) Heart failure with reduced ejection fraction: Status: Acute (5) Encounter for monitoring sotalol therapy: Status: Acute Plan Status post cardioversion yesterday. She remains in sinus rhythm. Home dose of sotalol at 120 mg b.i.d.. Starting Wednesday morning, she has received 160 mg b.i.d.. So far 3 doses have been given. Can continue the protocol till tomorrow morning. After about 5 doses and if no significant QT prolongation issues, then possibly discharge. Continue with anticoagulation. Entresto was on hold due to low blood pressure. Possibly resume at a lower dose at discharge. Otherwise, continue Pradaxa without changes. EKGs to be completed per hospital protocol for sotalol loading. Discussed with Aishwarya Perez. Labs-potassium is 5.1. Creatinine is 0.76. Magnesium is 2.5. Earlier in the hospital stay, high sensitivity troponin 6.5. Cardiac BNP 529. Echocardiogram last year, LVEF 35-40%. Moderate diastolic dysfunction. Restr icted posterior mitral leaflet. Fall Risk Details Current Medications: Current Medications Acetaminophen (Acetaminophen 325 Mg Tablet) 650 mg PO Q6H PRN PRN Reason: Pain, Mild (Pain Scale 1-3) Artificial Tears (Artificial Tears 15 Ml Drops) 1 drop EYE-BOTH Q4H PRN PRN Reason: Dry Eyes Clonazepam (Clonazepam 0.5 Mg Tablet) 0.5 mg PO BEDTIME PRN PRN Reason: Sleep Last Admin: 05/10/21 21:31 Dose: 0.5 mg Documented by: Dabigatran (Dabigatran Etexilate Mesylate 150 Mg Capsule) 150 mg PO BID [facility] Last Admin: 05/11/21 10:02 Dose: 150 mg Documented by: Docusate Sodium (Docusate Sodium 100 Mg Capsule) 100 mg PO DAILY PRN PRN Reason: Constipation Furosemide (Furosemide 40 Mg Tablet) 40 mg PO BID [facility]; Protocol Pharmacy Consult (Consult Rx Perform Med Rec) 1 each MISCELLANE ONCE PRN PRN Reason: Consult order Sacubitril/Valsartan (Sacubitril/Valsartan 97/103 1 Tab Tablet) 1 tab PO BID [facility]; Protocol Sodium Chloride (0.9 % Sodium Chloride Flush 3 Ml Syringe) 3 ml IVFLUSH QSHIFT [facility] Last Admin: 05/11/21 10:39 Dose: 3 ml Documented by: Sotalol HCl (Sotalol Hcl 80 Mg Tablet) 160 mg PO BID [facility] Last Admin: 05/11/21 10:02 Dose: 160 mg Documented by: Zolpidem Tartrate (Zolpidem Tartrate 5 Mg Tablet) 5 mg PO BEDTIME PRN PRN Reason: Sleep Time Spent With Patient Time: Total time spent is greater than 50% in coordination of care (as documented) at patient's floor/unit and/or counseling patient:36 Progress Note: Quality Stroke Does the patient have a stroke diagnosis?: No Procedures Date of Service Date of Service: 05/11/21
[2021-05-11 11:21] VITALS: BP 124/65; PULSE 70; RESP 19; TEMP 36.4; O2SAT 98
--- NOTE | 2021-05-11 11:47 | HO.PM.IMPN ---
Subjective Subjective Date of Service: 05/11/21 Review of Systems Follow up afib rvr no chest pain or? sob sitting up on the side of the bed better after cardioversion Physical Exam Vital Signs: Vital Signs: Last Vital Signs Temp 97.6 F 05/11/21 11:21 Pulse 70 05/11/21 11:21 Resp 19 05/11/21 11:21 BP 124/65 05/11/21 11:21 Pulse Ox 98 05/11/21 11:21 BMI result Body Mass Index 31.5 Appearing in no acute distress lung sounds are clear to auscultation heart regular rate rhythm, clear S1, S2 positive bowel sounds, abdomen is soft, nontender neuro patient is alert x3, no focal deficits Objective Data Active Medications Acetaminophen (Acetaminophen 325 Mg Tablet) 650 mg PO Q6H PRN PRN Reason: Pain, Mild (Pain Scale 1-3) Artificial Tears (Artificial Tears 15 Ml Drops) 1 drop EYE-BOTH Q4H PRN PRN Reason: Dry Eyes Clonazepam (Clonazepam 0.5 Mg Tablet) 0.5 mg PO BEDTIME PRN PRN Reason: Sleep Last Admin: 05/10/21 21:31 Dose: 0.5 mg Documented by: VICTORIANO Dabigatran (Dabigatran Etexilate Mesylate 150 Mg Capsule) 150 mg PO BID [facility] Last Admin: 05/11/21 10:02 Dose: 150 mg Documented by: JEWEL Docusate Sodium (Docusate Sodium 100 Mg Capsule) 100 mg PO DAILY PRN PRN Reason: Constipation Furosemide (Furosemide 40 Mg Tablet) 40 mg PO BID [facility]; Protocol Pharmacy Consult (Consult Rx Perform Med Rec) 1 each MISCELLANE ONCE PRN PRN Reason: Consult order Sacubitril/Valsartan (Sacubitril/Valsartan 97/103 1 Tab Tablet) 1 tab PO BID [facility]; Protocol Sodium Chloride (0.9 % Sodium Chloride Flush 3 Ml Syringe) 3 ml IVFLUSH QSHIFT [facility] Last Admin: 05/11/21 10:39 Dose: 3 ml Documented by: JEWEL Sotalol HCl (Sotalol Hcl 80 Mg Tablet) 160 mg PO BID [facility] Last Admin: 05/11/21 10:02 Dose: 160 mg Documented by: JEWEL Zolpidem Tartrate (Zolpidem Tartrate 5 Mg Tablet) 5 mg PO BEDTIME PRN PRN Reason: Sleep Labs CBC & Chem 7: 05/10/21 06:22 05/11/21 08:15 Labs: Laboratory Results - last 24 hr 05/11/21 08:15 Anion Gap 10 L Estim Creat Clear Calc 93.1 Estimated GFR > 60 Random Glucose 99 Calcium 9.1 Magnesium 2.5 Microbiology Microbiology Results: Microbiology 05/09/21 Unknown Urine Culture - Final Urine clean catch - Urine victor top Assessment and Plan (1) Atrial fibrillation with rapid ventricular response: Status: Acute Plan This is a 65 year old female with history of PAF s/p multiple ablations on Pradaxa, combined systolic and diastolic CHF s/p AICD, HTN, OA who presented to the ED with dyspnea and palpitations found to be in atrial fibrillation with rapid ventricular response Atrial fibrillation with rapid ventricular response Received a dose of IV metoprolol and additional dose of sotalol Heart rate better controlled at this time Case discussed with Cardiology, plan to increase dose of sotalol to 160 mg b.i.d. 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 Tylenol DVT prophylaxis-Pradaxa Code status-full code Attending - Dr. Chamorro Patient requires continued hospitalization as patient is status post cardioversion and will need to have increased dose of Sotalol monitored Quality Stroke Does the patient have a stroke diagnosis?: No VTE Prior VTE?: No VTE Risk Level:: Medical - moderate - high VTE Device Contraindication: N/A - Device Ordered VTE Drug Contraindication: N/A - Med Ordered
[2021-05-11] MEDS: Acetaminophen 325 MG TABLET 650 MG PO (12:53)
[2021-05-11 15:54] VITALS: BP 103/54; PULSE 70; RESP 18; TEMP 36.4; O2SAT 95
[2021-05-11 19:49] VITALS: BP 129/68; PULSE 73; RESP 18; TEMP 36.8; O2SAT 100
--- NOTE | 2021-05-11 23:30 | ECG_ITS ---
Test Reason : cp Blood Pressure : / mmHG Vent. Rate : 071 BPM Atrial Rate : 071 BPM P-R Int : 198 ms QRS Dur : 116 ms QT Int : 470 ms P-R-T Axes : 093 -78 073 degrees QTc Int : 510 ms AV dual-paced rhythm Abnormal ECG When compared with ECG of 11-MAY-2021 23:31, No significant change was found Referred By: Aishwarya Perez Electronically Signed By:KY HERNANDEZ MD
[2021-05-12] VITALS: BP 121/67; PULSE 71; RESP 15; TEMP 36.8; O2SAT 97
[2021-05-12] MEDS: clonazePAM 0.5 MG TABLET PO (00:52)
[2021-05-12 04:00] VITALS: BP 124/58; PULSE 75; RESP 16; TEMP 36.8; O2SAT 98
[2021-05-12 06:55] LABS: Anion Gap 10 (12-20); Blood Urea Nitrogen 12 mg/dL (9-16); Calcium 9.1 mg/dL (8.4-10.2); Carbon Dioxide 29 mmol/L (22-29); Chloride 107 mmol/L (96-108); Creatinine Clr Calc Pharmacy 94.4; Estimated Glomerular Filt Rate > 60; Glucose Random 90 mg/dL (60-115); Magnesium 2.3 mg/dL (1.6-2.6); Potassium 4.5 mmol/L (3.3-5.1); Sodium 141 mmol/L (135-145)
[2021-05-12 07:56] VITALS: BP 136/69; PULSE 70; RESP 20; TEMP 36.6; O2SAT 98
[2021-05-12] MEDS: Sotalol HCL 80 MG TABLET 160 MG PO (09:08)
[2021-05-12] MEDS: Dabigatran Etexilate Mesylate 150 MG CAPSULE PO (09:08)
[2021-05-12] MEDS: 0.9 % Sodium Chloride Flush 3 ML SYRINGE IVFLUSH (09:11)
--- NOTE | 2021-05-12 09:51 | MHC.CM.PN ---
IMM05/11/21 female 65 DX AFIB w RVR. She lives with SO + dtr. [facility] in [facility]. SO is [employer]. Requested a copy of HCP. DP home resumption [employer] services thru [facility]. SO will provide transport home.
--- NOTE | 2021-05-12 10:28 | P.DS_ITS ---
DS: Providers Provider Date of Service: 05/12/21 Date of admission: 05/09/21 15:38 Primary care physician: Jeremy Smith PA-C Consults: 05/09/21 15:38 Consult to Cardiology Routine Consulting Provider: Doug Rosales Reason for consultation: afib rvr Has provider been notified: No Attending physician on discharge: Jaron Perry Discharging clinician: Aishwarya Perez DS: Diagnosis Discharge Diagnosis (1) Atrial fibrillation with rapid ventricular response: Status: Acute DS: Summary Hospital Course Hospital Course: HP as per admitting provider This is a 65-year-old female with history atrial fibrillation, CHF, hypertension, arthritis presents to the emergency department with shortness of breath and palpitations. She has noticed three days of dyspnea primarily with exertion. She has also experienced what she describes as chest discomfort, although does not have any at this time.? She typically does not have any symptoms related to atrial fibrillation. On arrival she was noted to be in atrial fibrillation with rapid ventricular response.? She received a dose of IV metoprolol and an additional dose of sotalol while in the ED.? Her breathing and palpitations have improved somewhat.? Lab work and imaging was unremarkable. The case was discussed with cardiology who recommended to admit the patient for possible cardioversion. Received covid 19 Moderna vaccine and booster . Atrial fibrillation with rapid ventricular response. Patient has a history of this and cardiomyopathy and is status post biventricular ICD. She has been on sotalol however she was symptomatic with heart rate and palpitations. She was treated with Cardizem and subsequently cardioverted on 05/10/2021 with good success back to normal sinus rhythm. Her sotalol dose was increased to 160 mg twice daily and she has remained in normal sinus rhythm. Due to some low blood pressures her Entresto had been on hold as well as her Lasix. Her Entresto will be continued at a lower dose of 48/52 and Lasix to 40 mg daily. She should follow-up with her it professional for management of medication changes. Chronic combined systolic and diastolic CHF. s/p AICD. no evidence of acute heart failure Chronic back pain. Continue p.r.n. Tylenol Time Spent with Patient Time attestation: Total time spent providing and/or coordinating discharge services: Discharge coordination time: Greater than 30 minutes Quality: Safe Use of Opioids Does Pt have an Active Cancer Diagnosis on the Problem List?: No Quality: Stroke Does the patient have a stroke diagnosis?: No Physical Exam Vital Signs: Vital Signs: Last Vital Signs Temp 97.8 F 05/12/21 07:56 Pulse 70 05/12/21 07:56 Resp 20 05/12/21 07:56 BP 136/69 05/12/21 07:56 Pulse Ox 98 05/12/21 07:56 BMI result Body Mass Index 31.5 Appearing in no acute distress head is normocephalic atraumatic eyes pupils are PERRLA sclera is anicteric mouth throat mucous membranes are intact and moist neck is supple no lymphadenopathy, no JVD noted lung sounds are clear to auscultation heart regular rate rhythm, clear S1, S2 positive bowel sounds, abdomen is soft, nontender neuro patient is alert x3, no focal deficits DS: Data Data Completed and Pending Completed studies during hospitalization [Text1]: Procedures [facility] Cardiac Rhythm, Single (02/22/20) Labs on day of discharge: Laboratory Results - last 24 hr 05/12/21 05/12/21 05:50 05:50 Sodium 141 Potassium 4.5 Chloride 107 Carbon Dioxide 29 Anion Gap 10 L BUN 12 Creatinine 0.75 Estim Creat Clear Calc 94.4 Estimated GFR > 60 Random Glucose 90 Calcium 9.1 Magnesium 2.3 Cancelled Discharge Plan Discharge Anticipated Discharge Date/Time: 05/12/21 10:19 Patient Disposition: Home, Self-Care Discharge Diagnosis: Afib RVR Referrals: Jeremy Smith PA-C [Primary Care Provider] - 1 Week Doug Rosales MD [Physician] - 1 Week Discharge Medications: New Entresto 49-51 mg tablet 1 tab PO BID Qty: 60 0RF sotalol 80 mg Tablet 160 mg PO BID Qty: 120 0RF Continued Pradaxa 150 mg capsule 150 mg PO BID Qty: 60 5RF clonazepam [Klonopin] 0.5 mg tablet 0.5 mg PO BEDTIME PRN (Reason: Sleep) 0RF Rx Instructions: administer 30 minutes before bedtime zolpidem 10 mg tablet 5 mg PO BEDTIME PRN (Reason: Sleep) 0RF acetaminophen [Tylenol Extra Strength] 500 mg tablet 1,000 mg PO Q6H PRN (Reason: Pain (Scale Score 1-3)) 0RF artifi.tears(hypromellose)(PF) 0.3 % drops 1 drp ophthalmic (eye) Q4-6H PRN (Reason: Dry Eyes) 0RF furosemide 40 mg tablet 40 mg PO BID 0RF Changed furosemide 40 mg tablet 40 mg PO DAILY Qty: 0 0RF Discontinued sotalol 80 mg tablet 120 mg PO BID 90 Days Qty: 270 1RF Entresto 97-103 mg tablet 1 tab PO BID Qty: 180 1RF Discharge Orders: Discharge Order (Routine); Ordered 05/12/21 Ordered By: Aishwarya Perez Diet: advance to usual diet Activity on Discharge: As tolerated Stand Alone Forms: Patient Portal Discharge page Care Plan Goals: remain in normal sinus rhythm Health Concerns: Atrial fibrillation with rapid ventricular response Plan of Treatment: Follow-up with your it professional as needed Continue taking medications as prescribed Assessment: see discharge summary
--- NOTE | 2021-05-12 10:40 | PM.PNCARD ---
Subjective Subjective Date of Service: 05/12/21 Principal diagnosis: Recurrent atrial fibrillation Interval history: Patient feeling okay today. Ambulating in the room without any symptoms. Remains in sinus rhythm. Tolerating higher dose of sotalol. Awaiting repeat EKG. Her blood pressures are better control. She is not having any lightheadedness or syncope. No heart failure symptoms despite holding Lasix for 2 days. Review of Systems Review of Systems Yes all other systems are reviewed and are negative Physical Exam Vital Signs: Last Vital Signs Temp 97.8 F 05/12/21 07:56 Pulse 70 05/12/21 07:56 Resp 20 05/12/21 07:56 BP 136/69 05/12/21 07:56 Pulse Ox 98 05/12/21 07:56 BMI result Body Mass Index 31.5 Const General: cooperative, comfortable, no acute distress, alert and awake Nutritional Appearance: obese Orientation/consciousness: patient oriented x3 Limitations: no limitations Neck Neck: Yes trachea midline, Yes supple and Yes no JVD Chest Chest palpation & inspection: normal inspection of the chest Breast/axilla palpation: normal palpation of the breasts Resp Effort & Inspection: normal respiratory effort Auscultation: clear to auscultation bilaterally Cardio Jugular venous distension: no JVD Palpation: normal PMI Rate: regular rate Rhythm: regular rhythm Heart sounds: S1 normal heart sound present, S2 normal heart sound present, no click, no gallops, no murmurs and no rubs GI Inspection: Yes obesity Auscultation: normal bowel sounds Skin General skin exam: no rashes or lesions noted Neuro General: patient oriented x3 and no focal motor deficits Extrem General: Yes no clubbing, cyanosis or edema Objective Labs and Meds Result diagrams: 05/10/21 06:22 05/12/21 05:50 Lab results: Laboratory Results - last 24 hr 05/12/21 05/12/21 05:50 05:50 Sodium 141 Potassium 4.5 Chloride 107 Carbon Dioxide 29 Anion Gap 10 L BUN 12 Creatinine 0.75 Estim Creat Clear Calc 94.4 Estimated GFR > 60 Random Glucose 90 Calcium 9.1 Magnesium 2.3 Cancelled Progress Note: A&P Assessment and plan (1) PAF (paroxysmal atrial fibrillation): Status: Acute Assessment and Plan: Patient present with recurrent atrial fibrillation requiring cardioversion. Tolerating higher dose of sotalol. Repeat EKG pending this morning after the morning dose. If QTC is similar to 3 sotalol dose can be discharged home. Continue higher dose of sotalol. Will refer her back to EPS for consideration of further therapeutic options. In the past has not tolerated amiodarone. Other options include repeat ablation and/or Tikosyn therapy. This was discussed with her. She was not very excited about it. Her she understands. Pathophysiology of recurrent atrial fibrillation was discussed with her. Continue full oral anticoagulation, currently on Pradaxa 150 mg b.i.d. and tolerating it well. (2) Heart failure with reduced ejection fraction: Status: Acute Assessment and Plan: Prior history of heart failure with reduced ejection fraction with still persistent moderate LV systolic dysfunction. Continue sotalol for neurohormonal modulation. Given low blood pressure will reduce Entresto dose to 49/51 mg twice a day. [employer] 1st dose and follow-up blood pressure. Blood pressure is adequate can be discharged home later today. Also reduce Lasix to 40 mg daily. Will follow heart failure with thoracic impedance monitoring remotely and with clinical symptoms. She understands management of heart failure well. Will follow up in the clinic in 2 weeks time, sooner p.r.n.. Thank you for allowing me to partake in her care Fall Risk Details Current Medications: Current Medications Acetaminophen (Acetaminophen 325 Mg Tablet) 650 mg PO Q6H PRN PRN Reason: Pain, Mild (Pain Scale 1-3) Last Admin: 05/11/21 12:53 Dose: 650 mg Documented by: Artificial Tears (Artificial Tears 15 Ml Drops) 1 drop EYE-BOTH Q4H PRN PRN Reason: Dry Eyes Clonazepam (Clonazepam 0.5 Mg Tablet) 0.5 mg PO BEDTIME PRN PRN Reason: Sleep Last Admin: 05/12/21 00:52 Dose: 0.5 mg Documented by: Dabigatran (Dabigatran Etexilate Mesylate 150 Mg Capsule) 150 mg PO BID [facility] Last Admin: 05/12/21 09:08 Dose: 150 mg Documented by: Docusate Sodium (Docusate Sodium 100 Mg Capsule) 100 mg PO DAILY PRN PRN Reason: Constipation Furosemide (Furosemide 40 Mg Tablet) 40 mg PO BID ANTHONY; Protocol Pharmacy Consult (Consult Rx Perform Med Rec) 1 each MISCELLANE ONCE PRN PRN Reason: Consult order Sacubitril/Valsartan (Sacubitril/Valsartan 97/103 1 Tab Tablet) 1 tab PO BID [facility]; Protocol Sodium Chloride (0.9 % Sodium Chloride Flush 3 Ml Syringe) 3 ml IVFLUSH QSHIFT [facility] Last Admin: 05/12/21 09:11 Dose: 3 ml Documented by: Sotalol HCl (Sotalol Hcl 80 Mg Tablet) 160 mg PO BID [facility] Last Admin: 05/12/21 09:08 Dose: 160 mg Documented by: Zolpidem Tartrate (Zolpidem Tartrate 5 Mg Tablet) 5 mg PO BEDTIME PRN PRN Reason: Sleep Time Spent With Patient Time: Total time spent is greater than 50% in coordination of care (as documented) at patient's floor/unit and/or counseling patient: Progress Note: Quality Stroke Does the patient have a stroke diagnosis?: No Procedures Date of Service Date of Service: 05/12/21
--- NOTE | 2021-05-12 11:43 | MHC.CM.PN ---
Addendum entered by Beatriz Smith 05/12/21 11:55: IMM 05/12/21 Female DX AFIB RVR is discharged to home today. 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 Patient has arranged for transportation. Original Note: Female 65 DX AFIB w RVR She is discharged home today with resumption of [employer] services thru [facility]. Patient has arranged for transportation.
== END 2021-05-12 13:20 | disposition home or self-care (01) | DRG 309 ==
LOC: HO.EDOVER 16:20 → HO.IMC 05-10 07:45 → HO.ED 05-10 09:01 → HO.EDOVER 05-10 09:01 → HO.IMC 05-10 09:01 → HO.SSSA 05-10 09:03 → HO.IMC 05-10 09:14 → HO.SSSA 05-10 09:17 → HO.IMC 05-10 09:20
PROVIDERS: Emergency Medicine; Internal Medicine; Admitting Provider Physician Assistant Medical; PCP Physician Assistant; Visit Provider Nurse Practitioner Acute Care
PROC: 5A2204Z Restoration of Cardiac Rhythm, Single (ICD-10-PCS; principal; 2021-05-10 10:30)
DX: I48.0 Paroxysmal atrial fibrillation (principal); I50.42 Chronic combined systolic (congestive) and diastolic (congestive) heart failure; I11.0 Hypertensive heart disease with heart failure; I95.9 Hypotension, unspecified; M54.9 Dorsalgia, unspecified; G89.29 Other chronic pain; Z20.822 Contact with and (suspected) exposure to COVID-19; Z95.810 Presence of automatic (implantable) cardiac defibrillator; Z79.899 Other long term (current) drug therapy
CPT/HCPCS: 36415; 71045; 80048; 81001; 83735; 83880; 84484; 85025; 85027; 85610; 87086; 87635; 92960; 93005

== ENCOUNTER → 2021-06-04 11:17 | Outpatient (BNVA) | payer MEDICARE, MEDICAID, SELFPAY ==
[2021-03-24 14:16] VITALS: BP 104/68; BP 112/72; BMI 31.3
== END ==
PROVIDERS: PCP Physician Assistant; Referring Provider Physician Assistant; Visit Provider Internal Medicine Cardiovascular Disease
DX: Z45.02 Encounter for adjustment and management of automatic implantable cardiac defibrillator (principal); I50.20 Unspecified systolic (congestive) heart failure; I48.0 Paroxysmal atrial fibrillation
CPT/HCPCS: 93005; 93284; 99212

== ENCOUNTER 2021-07-10 11:16 | Outpatient (REF) | payer MEDICARE, MEDICAID, SELFPAY ==
[2021-03-24 14:16] VITALS: BP 104/68; BP 112/72; BMI 31.3
--- NOTE | ~2021-07-10 | XR_ITS ---
EXAMINATION: BILATERAL SHOULDER. CLINICAL INFORMATION: Bilateral shoulder pain COMPARISON: None TECHNIQUE: 4 views each shoulder. FINDINGS: RIGHT SHOULDER: The glenohumeral joint space and the AC joint spaces normal. No visible acute fracture, dislocation or subluxation seen. The soft tissues are normal. LEFT SHOULDER: There is loss of left glenohumeral and AC joints space without any visible acute fracture, dislocation or subluxation. No bony erosive changes. The soft tissues are normal. XR/XR shoulder RT min 2V IMPRESSION: Unremarkable right shoulder exam. Unremarkable left shoulder exam.
--- NOTE | ~2021-07-10 | XR_ITS ---
EXAMINATION: BILATERAL SHOULDER. CLINICAL INFORMATION: Bilateral shoulder pain COMPARISON: None TECHNIQUE: 4 views each shoulder. FINDINGS: RIGHT SHOULDER: The glenohumeral joint space and the AC joint spaces normal. No visible acute fracture, dislocation or subluxation seen. The soft tissues are normal. LEFT SHOULDER: There is loss of left glenohumeral and AC joints space without any visible acute fracture, dislocation or subluxation. No bony erosive changes. The soft tissues are normal. XR/XR shoulder LT min 2V IMPRESSION: Unremarkable right shoulder exam. Unremarkable left shoulder exam.
== END 2021-07-10 11:17 | disposition home or self-care (01) ==
LOC: HO.XRAY 11:16
PROVIDERS: PCP Physician Assistant; Visit Provider Physician Assistant
DX: M25.511 Pain in right shoulder (principal); M25.512 Pain in left shoulder; M79.7 Fibromyalgia; M47.816 Spondylosis without myelopathy or radiculopathy, lumbar region; M53.3 Sacrococcygeal disorders, not elsewhere classified
CPT/HCPCS: 73030; 99212

== ENCOUNTER → 2021-08-27 10:03 | Outpatient (REF) | payer MEDICARE, MEDICAID, SELFPAY ==
[2021-03-24 14:16] VITALS: BP 104/68; BP 112/72; BMI 31.3
--- NOTE | 2021-08-27 10:05 | CA_ITS ---
Transthoracic Echocardiogram Patient (Last, First, Middle): Iliana Vigil E Gender: Female Date of : 1955 Age: 66 Procedure Date: 08/27/2021 Procedure Type: Transthoracic Echocardiogram Location: OP Height: 177.8 cm Weight: 99.34 kg BSA: 2.17 m2 Heart Rate: bpm BP: 124 / 80 mmHg Planner/Scheduler: MODESTO Referring MD: Andres Bruno MD [employer] Assistant: Andres Bruno MD Symptoms: I50.20 - Unspecified systolic (congestive) heart failure Study Quality: Fair ECG Rhythm: Ventriculary paced rhythm Conclusions: - 1. Mildly dilated left ventricle with moderate LV systolic dysfunction with pseudonormal filling pattern 2. Mildly dilated left atrium 3. Mild aortic and mitral regurgitation 4. Normal RV systolic pressure 5. No pericardial effusion Findings Left Ventricle Mildly increased left ventricular cavity size. There is mildly increased left ventricular wall thickness. The left ventricular systolic function is moderately decreased. The visually estimated ejection fraction is between 35 40%. Spectral Doppler is indicative of a pseudonormal filling pattern. E/E prime ratio is between 8 and 15 consistent with indeterminate filling pressures. Wall Motion Rest Echo Findings The basal inferior and basal inferoseptal segments are akinetic. All other scored wall segments showed normal motion. Right Ventricle Normal right ventricular cavity size and systolic function. There is an ICD wire seen in the right ventricle. Atria The left atrium is mildly dilated. There is no evidence of interatrial shunt. The right atrium is normal in size. Aortic Valve The aortic valve structure and function is likely normal. There is no aortic valve stenosis. There is mild aortic valve regurgitation. Mitral Valve There is mild anterior and posterior mitral leaflet thickening. The posterior mitral leaflet has restricted mobility. There is mild mitral valve regurgitation. There is no mitral valve stenosis. Pulmonic Valve The pulmonic valve was not well visualized. Tricuspid Valve Likely normal tricuspid valve structure and function. There is trace tricuspid valve regurgitation. The right ventricular systolic pressure is normal. The right ventricular systolic pressure is 21 mmHg. Normal right atrial pressure. There is no evidence of pulmonary hypertension. Great Vessels All visible segments of the aorta are normal in size. The pulmonary artery was not well visualized. Venous The inferior vena cava is normal in size and collapses greater than 50% with inspiration. Pericardium/Pleural There is no evidence of pericardial effusion. Prior Study Comparison No significant change compared to prior study dated: 09/11/2020. Measurements 2D Linear Measurements IVSd: 1.20 0.6-0.9/0.6-1.0 cm LVIDd: 5.81 3.9-5.3/4.2-5.9 cm LVIDd Index: 2.68 2.4-3.2/2.2-3.1 cm/m2 LVIDs: 4.97 2.0-3.6 cm LVPWd: 1.21 0.7-1.1 cm Ao Root: 3.30 2.1-3.5 cm LA Diam: 4.50 2.7-3.8/3.0-4.0 cm LAIDs Index: 2.07 1.5-2.3 cm/m2 LV Mass: 373.66 67-162/88-224 g LV Mass Index: 172.19 43-95/49-115 g/m2 LVOT Diam: 2.30 3.0+(-)1.3 cm 2D Systolic Function EF 4C: 31.50 >55% EF 2C: 42.90 >55% EF BiP: 38.90 >55% Mitral Valve MV Pk E: 0.89 MV PK A: 0.60 MV Decel Time: 169.00 E/A: 1.50 E'Lateral: 6.53 E'Medial: 5.66 E/E' Med: 15.70 E/E' Lat: 13.60 PHT: 50.00 MVA PHT: 4.40 Decel Graves: 5.25 Aortic Valve AoV Pk Abel: 1.54 AoV Mn Abel: 1.04 AoV VTI: 0.30 AoV Pk Grad: 9.00 Aov Mn Grad: 5.00 YADY Cont.VTI: 2.38 LVOT LVOT Pk Abel: 0.78 LVOT Mn Abel: 0.55 LVOT VTI: 0.17 LVOT Pk Grad: 2.00 LVOT Mn Grad: 1.00 LVOT Diam: 2.30 LVOT Area: 4.15 Diastolic Function MV Pk E: 0.89 MV Pk A: 0.60 E/A: 1.50 E'Medial: 5.66 E/E' Med: 15.70 E' Laterial: 6.53 E/E' Lat: 13.60 Tricuspid Valve TR Pk Abel: 2.11 TR Pk Grad: 18.00 RA Press: 3.00 RVSP: 21.00 Great Vessels Aorta Ao Root-2D: 3.30 2.0-3.7 cm Ao Asc: 3.30 2.1-3.4 cm Pulmonary Valve PV Pk Abel: 0.92 Peak PV Grad: 3.00 Updated in Other Vendor System with Status of Final Andres Bruno MD electronically signed on 08/27/2021 11:54:06 AM with status of Final
== END ==
LOC: HO.CARD 10:03
PROVIDERS: PCP Physician Assistant; Visit Provider Internal Medicine Cardiovascular Disease
DX: I50.20 Unspecified systolic (congestive) heart failure (principal)
CPT/HCPCS: 93306

== ENCOUNTER → 2021-08-28 13:03 | Outpatient (BNVA) | payer MEDICARE, MEDICAID, SELFPAY ==
[2021-03-24 14:16] VITALS: BP 104/68; BP 112/72; BMI 31.3
== END ==
PROVIDERS: PCP Physician Assistant; Referring Provider Physician Assistant; Visit Provider Internal Medicine Cardiovascular Disease
DX: Z45.02 Encounter for adjustment and management of automatic implantable cardiac defibrillator (principal); I48.0 Paroxysmal atrial fibrillation; I50.20 Unspecified systolic (congestive) heart failure
CPT/HCPCS: 93005; 99212

== ENCOUNTER 2021-09-03 09:26 | Emergency (ER) | payer MEDICARE, MEDICAID, SELFPAY ==
[2021-03-24 14:16] VITALS: BP 104/68; BP 112/72; BMI 31.3
[2021-09-03 09:44] VITALS: BP 112/91; PULSE 80; RESP 18; TEMP 37.3; O2SAT 94; BMI 31.4
[2021-09-03 10:26] LABS: MANUAL DIFF FLAG NO
[2021-09-03 10:27] LABS: Basophils Percent Auto 0.4 % (0-2); Eosinophils Absolute Auto 0.1 X10*3/uL (0.0-0.4); Eosinophils Percent Auto 1.7 % (0-4); Hematocrit 38.7 % (37.0-47.0); Hemoglobin 12.9 g/dl (12.0-16.0); Imm Gran Abs Auto 0.02 X10*3/uL (0.00-0.03); Imm Gran Pct Auto 0.2 % (0.0-0.4); Lymphocytes Absolute Auto 1.6 X10*3/uL (1.2-4.9); Lymphocytes Percent Auto 19.8 % (20-40); Mean Corpuscular HGB Conc 33.3 g/dl (31.0-35.0); Mean Corpuscular Hemoglobin 28.5 pg (27.0-33.0); Mean Corpuscular Volume 85.4 fL (80.0-98.0); Mean Platelet Volume 10.2 fL (9.4-12.3); Monocytes Absolute Auto 0.7 X10*3/uL (0.1-1.2); Monocytes Percent Auto 9.1 % (2-11); Neutrophils Absolute Auto 5.6 x10*3/uL (2.0-8.3); Neutrophils Percent Auto 68.8 % (45-73); Platelet Count 189 X10*3/uL (160-400); Red Blood Count 4.53 X10*6/uL (4.20-5.50); Red Cell Distribution Width 13.7 % (11.0-16.0); White Blood Count 8.1 X10*3/uL (4.8-10.8)
[2021-09-03 10:41] LABS: COVID-19 Test Positive (Negative); IDNOW Serial# 16C4AD1C
[2021-09-03 11:01] LABS: Anion Gap 11 (12-20); Blood Urea Nitrogen 9 mg/dL (9-16); Calcium 8.8 mg/dL (8.4-10.2); Carbon Dioxide 28 mmol/L (22-29); Chloride 105 mmol/L (96-108); Estimated Glomerular Filt Rate > 60; Glucose Random 115 mg/dL (60-115); Potassium 3.6 mmol/L (3.3-5.1); Sodium 140 mmol/L (135-145)
--- NOTE | 2021-09-03 12:18 | ED.GENADULT ---
HPI - General Adult General Chief complaint: General Medical Stated complaint: fever Time Seen by Provider: 09/03/21 11:18 Source: patient Mode of arrival: ambulatory Limitations: no limitations History of Present Illness HPI narrative: Patient presents emergency department for evaluation multiple symptoms. She reports as a 4 days ago on Wednesday she developed fevers, cough, runny nose and nasal congestion. In addition since yesterday she has been experiencing burning with urination. She denies any known sick contacts. States that she has been vaccinated for COVID-19 x 3. Denies headache, vision changes, dizziness, lightheadedness, chest pain, palpitations, difficulty breathing, nausea, vomiting, abdominal pain, back pain, inability to urinate. Related Data Home Medications Medication Instructions Recorded Confirmed acetaminophen 500 mg tablet 1,000 mg PO Q6H PRN Pain (Scale 11/09/19 08/28/21 (Tylenol Extra Strength) Score 1-3) artifi.tears(hypromellose)(PF) 0.3 1 drp ophthalmic (eye) Q4-6H PRN 03/27/20 08/28/21 % eye drops Dry Eyes zolpidem 10 mg tablet 5 mg PO BEDTIME PRN Sleep 05/09/21 08/28/21 sotalol 80 mg tablet 120 mg PO BID 08/28/21 08/28/21 Previous Rx's Medication Instructions Recorded clonazepam 0.5 mg tablet (Klonopin) 0.5 mg PO BEDTIME PRN Sleep 30 05/17/21 days #30 tabs benzonatate 100 mg capsule 100 mg PO BID-TID PRN cough #30 05/20/21 caps sacubitril 49 mg-valsartan 51 mg 1 tab PO BID 90 days #180 tabs 06/12/21 tablet (Entresto) furosemide 40 mg tablet 40 mg PO DAILY sob, swelling #90 07/04/21 tabs blood pressure test kit-large #1 ea 08/14/21 cetirizine 10 mg tablet 10 mg PO DAILY 90 days #90 tabs 08/14/21 dabigatran etexilate 150 mg 150 mg PO BID 90 days #180 caps 08/15/21 capsule (Pradaxa) cefuroxime axetil 250 mg tablet 250 mg PO Q12H 7 days #14 tabs 09/03/21 Allergies Allergy/AdvReac Type Severity Reaction Status Date / Time rivaroxaban [From XARELTO] AdvReac Intermediate LEG EDEMA, Verified 08/14/21 11:39 RASH Review of Systems Review of Systems: Constitutional: Positive fever. No chills. No weakness. Positive fatigue. ENT/ Mouth: No Ear Pain, positive Nasal Congestion, positive sore throat, No Rhinorrhea, No Swallowing Difficulty Skin: No rash or itching. Cardiovascular: No chest pain. No palpitations. Respiratory: No shortness of breath. Positive cough. No sputum production. Gastrointestinal: No nausea. No vomiting. No diarrhea. No abdominal pain. Genitourinary: Positive burning micturition. No urinary frequency. Neurologic: No headache. No dizziness. No syncope. No numbness or tingling in the extremities. Musculoskeletal: No muscle pain. No back pain. No joint pain or stiffness. Yes all other systems are reviewed and are negative [facility] Past Medical History Attestation statement: The following information was validated with the patient. Source: old records reviewed Medical History Biventricular ICD (implantable cardioverter-defibrillator) in place Encounter for monitoring sotalol therapy Graves' disease in remission Heart failure with reduced ejection fraction History of cardioversion HLD (hyperlipidemia) HTN (hypertension) Hypotension arterial Nonischemic cardiomyopathy Obesity (BMI 30-39.9) Osteoporosis screening PAF (paroxysmal atrial fibrillation) SVT (supraventricular tachycardia) Transaminitis Surgical History History of cardiac defibrillator placement History of radiofrequency ablation procedure for cardiac arrhythmia Hx of cardiac catheterization (~06/2017) Hx of tubal ligation Family History Family History Father Stroke Hypertension Mother Hypertension Diabetes Daughter AVM (arteriovenous malformation) Son No problems noted. Sister No problems noted. Brother No problems noted. Brother No problems noted. Brother No problems noted. Brother No problems noted. Social History Social History Household Members: Significant Other Housing: House Do you presently have visiting nurse or other home services: No Alcohol intake: never Patient Tobacco Use Status: Never used Tobacco e-Cigarette/Vaping Use: Never Used Second Hand Smoke Exposure: No Advance Directives: Yes Advance Directives Information Provided: Yes Advance Directives on File: No service: No Current occupational status: unemployed Cognitive needs: No Hearing needs: No Vision needs: No Physical Exam ED Vital Signs: Vital Signs - 24 hr 09/03/21 09:44 Temperature 99.2 F Pulse Rate 80 Respiratory Rate 18 Blood Pressure 112/91 H Pulse Oximetry 94 Oxygen Delivery Method Room Air BMI result Body Mass Index 31.4 Vital signs have been reviewed as normal and appeared to be correct. Blood pressure normal.? Heart rate normal.? Respiration rate normal. Temperature normal.? Oxygen saturation normal. Appearance: Alert.?Oriented to person, place and time. No acute distress.?Normal affect. Eyes: Pupils equal, round and reactive to light.? ENT: Pharynx normal.??No exudate or tonsillar hypertrophy Neck: Normal inspection.? Neck supple.?? CVS: Heart sounds normal. Normal heart rate and rhythm.? Pulses normal.?? Respiratory: No respiratory distress.? Lung sounds clear to auscultation bilaterally?? Abdomen: Soft and non-tender. Normoactive bowel sounds. No CVA tenderness? Skin: Skin warm and dry.? Normal skin color.? Extremities: No lower extremity edema.? Neuro: Moves all extremities spontaneously. Sensation intact bilaterally. CN II-XII intact. No focal neuro deficits. Ambulates with normal steady gait. Course Course Course Narrative: Patient is a 66-year-old female with past medical history of heart failure, atrial fibrillation, ICD placement, anxiety, fibromyalgia, hyperlipidemia, hypertension, history of Graves disease, obesity, presenting for evaluation of upper respiratory symptoms, as well as dysuria. COVID-19 testing positive. Urinalysis positive for urinary tract infection At this time history and physical exam not consistent with ACS/PE/pneumonia. Not consistent with pyelonephritis. Well-appearing, nontoxic, afebrile, no tachycardia or tachypnea/hypoxia. Speaking clear full sentences, ambulatory with steady gait. Ambulatory O2 trial normal, no hypoxia or tachypnea. Discussed conservative treatment including rest, hydration, Tylenol as needed for fever and body aches, saline nasal spray, humidifier. Reviewed monoclonal antibody infusion as well as Paxlovid for COVID-19, patient accepted referral for monoclonal antibody infusion, declined interest in Paxlovid. Discussed treatment with course of antibiotics for urinary tract infection. Advised to follow-up with primary care provider as needed, discussed worrisome signs and symptoms to return back to the emergency department. All questions were answered. Patient discharged home in stable condition. Medical Decision Making Lab Data Result diagrams: 09/03/21 10:21 09/03/21 10:21 Labs: Lab Results 09/03/21 09/03/21 09/03/21 Range/Units 10:21 10:21 10:21 WBC 8.1 (4.8-10.8) X10*3/uL RBC 4.53 (4.20-5.50) X10*6/uL Hgb 12.9 (12.0-16.0) g/dl Hct 38.7 (37.0-47.0) % MCV 85.4 (80.0-98.0) fL MCH 28.5 (27.0-33.0) pg MCHC 33.3 (31.0-35.0) g/dl RDW 13.7 (11.0-16.0) % Plt Count 189 (160-400) X10*3/uL MPV 10.2 (9.4-12.3) fL Immature Gran % (Auto) 0.2 (0.0-0.4) % Neut % (Auto) 68.8 (45-73) % Lymph % (Auto) 19.8 L (20-40) % [place] % (Auto) 9.1 (2-11) % Eos % (Auto) 1.7 (0-4) % Baso % (Auto) 0.4 (0-2) % Lymph # (Auto) 1.6 (1.2-4.9) X10*3/uL [place] # (Auto) 0.7 (0.1-1.2) X10*3/uL Eos # (Auto) 0.1 (0.0-0.4) X10*3/uL Baso # (Auto) 0.0 (0.0-0.2) X10*3/uL Abs Immat Gran (auto) 0.02 (0.00-0.03) X10*3/uL Absolute Neuts (auto) 5.6 (2.0-8.3) x10*3/uL Absolute Nucleated RBC 0.000 (0.0-0.012) X10*3/uL Nucleated RBC % (auto) 0.0 (0.0-0.2) /100WBC Sodium 140 (135-145) mmol/L Potassium 3.6 (3.3-5.1) mmol/L Chloride 105 (96-108) mmol/L Carbon Dioxide 28 (22-29) mmol/L Anion Gap 11 L (12-20) BUN 9 (9-16) mg/dL Creatinine 0.80 (0.5-1.4) mg/dL Estim Creat Clear Calc 87.0 Estimated GFR > 60 Random Glucose 115 (60-115) mg/dL Calcium 8.8 (8.4-10.2) mg/dL COVID-19 ([facility]) Positive A (Negative) COVID-19 Clin Com See Note Discharge Plan Discharge Clinical Impression: Urinary tract infection, COVID-19 Patient Disposition: Home, Self-Care Instructions: Urinary Tract Infection in Older Adults (ED), COVID-19 (Coronavirus Disease 2019) (ED) Additional Instructions: You have tested positive for COVID-19. We discussed treatment with monoclonal antibodies as well as Paxlovid in you were agreeable to monoclonal antibodies, a referral was sent to [facility], you will be contacted by them to arrange the infusion. You should self isolate for at least 5 days since her symptom onset, additionally your symptoms need to be significantly improving, and you need to be without fever for 24 hours without the use of Tylenol or ibuprofen before ending your isolation, this is according to the CDC guidelines. If you develop worsening symptoms, dizziness, lightheadedness, chest pain, palpitations, shortness of breath, difficulty breathing, nausea, vomiting, abdominal pain, weakness you should return back to emergency department for evaluation. Additionally you were found to have a urinary tract infection. You have been given an antibiotic to treat this infection, please complete this entire course. You may return to the emergency department any new or worsening symptoms or concerns such as worsening fevers, fevers not responding to medication, shaking chills, nausea, vomiting, abdominal pain, back pain, inability to urinate, blood in the urine. Please contact your primary care provider and arrange for a follow-up visit. Prescriptions: New cefuroxime axetil 250 mg tablet 250 mg PO Q12H 7 Days Qty: 14 0RF No Action clonazepam [Klonopin] 0.5 mg tablet 0.5 mg PO BEDTIME PRN (Reason: Sleep) 30 Days Qty: 30 0RF Rx Instructions: administer 30 minutes before bedtime Entresto 49-51 mg tablet 1 tab PO BID 90 Days Qty: 180 1RF furosemide 40 mg tablet 40 mg PO DAILY Qty: 90 3RF Pradaxa 150 mg capsule 150 mg PO BID 90 Days Qty: 180 3RF zolpidem 10 mg tablet 5 mg PO BEDTIME PRN (Reason: Sleep) benzonatate 100 mg capsule 100 mg PO BID-TID PRN (Reason: cough) Qty: 30 0RF cetirizine 10 mg tablet 10 mg PO DAILY 90 Days Qty: 90 1RF (DME) blood pressure test kit-large Kit See Rx Instructions .Route Qty: 1 0RF Rx Instructions: As directed acetaminophen [Tylenol Extra Strength] 500 mg tablet 1,000 mg PO Q6H PRN (Reason: Pain (Scale Score 1-3)) artifi.tears(hypromellose)(PF) 0.3 % drops 1 drp ophthalmic (eye) Q4-6H PRN (Reason: Dry Eyes) sotalol 80 mg tablet 120 mg PO BID Interventions: ED Discharge Assessment Last Done: 09/03/21 12:46 Discharge Date/Time: 09/03/21 12:46
== END 2021-09-03 12:46 | disposition home or self-care (01) ==
PROVIDERS: Emergency Provider Emergency Medicine; PCP Physician Assistant
DX: U07.1 COVID-19 (principal); N39.0 Urinary tract infection, site not specified; R50.9 Fever, unspecified; I48.0 Paroxysmal atrial fibrillation; I10 Essential (primary) hypertension; E78.5 Hyperlipidemia, unspecified; E66.9 Obesity, unspecified; Z68.31 Body mass index [BMI] 31.0-31.9, adult
CPT/HCPCS: 80048; 85025; 87635; 99282; 99283

== ENCOUNTER 2021-10-17 13:00 | Outpatient (RCR) | payer MEDICARE, MEDICAID, SELFPAY ==
[2021-03-24 14:16] VITALS: BP 104/68; BP 112/72; BMI 31.3
[2021-08-26 13:04] VITALS: BP 136/70; PULSE 69
== END 2021-11-25 08:00 | disposition home or self-care (01) ==
LOC: HO.PT 13:00
PROVIDERS: PCP Physician Assistant; Visit Provider Orthopaedic Surgery
DX: M25.811 Other specified joint disorders, right shoulder (principal); M25.812 Other specified joint disorders, left shoulder; M75.02 Adhesive capsulitis of left shoulder; M75.01 Adhesive capsulitis of right shoulder
CPT/HCPCS: 97110; 97162

== ENCOUNTER 2021-11-07 10:26 | Outpatient (REF) | payer MEDICARE, MEDICAID, SELFPAY ==
[2021-03-24 14:16] VITALS: BP 104/68; BP 112/72; BMI 31.3
--- NOTE | ~2021-11-07 | MM_ITS ---
EXAMINATION: BONE DENSITOMETRY CLINICAL INDICATION: Asymptomatic menopausal state. COMPARISON: Previous BD dated 11/07/2019 and baseline BD dated 09/26/2007. TECHNIQUE: Using a [employer] DXA System (software version: 13.1) manufactured by [employer], dual-energy x-ray absorptiometry was performed of the lumbar spine and left hip. The images are of good technical quality. Summary results are attached. FINDINGS: AP SPINE L1-L3 (excluding L4): The data of L1-L4 has been changed to exclude the L4 vertebral body, because degenerative changes at this level may cause overestimation of lumbar spine density. Current: BMD 1.450 g/cm2, Z-score 2.8, T-score 2.3, normal, 2.9% decrease from previous, 6.7% decrease from baseline (<5% change is not significant). Prior: BMD 1.493 g/cm2. Baseline: BMD 1.554 g/cm2. LEFT FEMUR, NECK: Current: BMD 1.215 g/cm2, Z-score 2.1, T-score 1.3, normal. Prior: BMD 1.213 g/cm2. Baseline: BMD 1.309 g/cm2. LEFT FEMUR, TOTAL: Current: BMD 1.263 g/cm2, Z-score 2.5, T-score 2.0, normal, 0.6% decrease from previous, 9.6% decrease from baseline (<5% change is not significant). Prior: BMD 1.271 g/cm2. Baseline: BMD 1.397 g/cm2. IDENTIFIED RISK FACTORS: Menopause, rheumatoid arthritis. HISTORY OF FRACTURE: None listed. MEDICATIONS: None listed. MM/XR DEXA axial skeleton IMPRESSION: 1. DIAGNOSIS: Normal bone density based on the lowest T-score value of 1.3 in the femoral neck applying World Health Organization criteria. 2. 10-YEAR FRACTURE RISK PREDICTION, FRAX: According to the guidelines, FRAX calculation should only be performed on patients in the osteopenia bone density category. Therefore, FRAX was not performed on this patient. 3. Treatment Recommendations: NOF guidelines recommend consideration for treatment in postmenopausal women and men age 50 and older presenting with the following: -A hip or vertebral (clinical or morphometric) fracture. -T-score less than or equal to -2.5 at the femoral neck or spine after appropriate evaluation to exclude secondary causes. -Low bone mass at the hip or spine and a 10-year fracture probability by FRAX of greater than or equal to 3% for hip fracture or greater than or equal to 20% for major osteoporotic fracture based on the [place] adapted WHO algorithm. 4. Other Recommendations: All treatment decisions require clinical judgment and consideration of individual patient factors, including patient preferences, comorbidities, previous drug use, risk factors not captured in the FRAX model (e.g. frailty, falls, vitamin D deficiency, increased bone turnover, interval significant decline in bone density) and possible under or overestimation of fracture risk by FRAX. FUTURE SCAN RECOMMENDATION: People with diagnosed cases of osteoporosis or at high risk for fracture should have regular bone mineral density tests. For patients eligible for Medicare, routine testing is allowed once every 2 years. The testing frequency can be increased to one year for patients who have rapidly progressing disease, those who are receiving or discontinuing medical therapy to restore bone mass, or have additional risk factors.
== END 2021-11-07 10:27 | disposition home or self-care (01) ==
LOC: HO.MAMMO 10:26
PROVIDERS: PCP Physician Assistant; Visit Provider Physician Assistant
DX: Z13.820 Encounter for screening for osteoporosis (principal); Z78.0 Asymptomatic menopausal state
CPT/HCPCS: 77080

== ENCOUNTER → 2021-12-01 13:31 | Outpatient (BNVA) | payer MEDICARE, MEDICAID, SELFPAY ==
[2021-03-24 14:16] VITALS: BP 104/68; BP 112/72; BMI 31.3
== END ==
PROVIDERS: PCP Physician Assistant; Referring Provider Physician Assistant; Visit Provider Internal Medicine Cardiovascular Disease
DX: Z45.02 Encounter for adjustment and management of automatic implantable cardiac defibrillator (principal); I48.0 Paroxysmal atrial fibrillation; I50.20 Unspecified systolic (congestive) heart failure
CPT/HCPCS: 93005; 99212

== ENCOUNTER → 2021-12-03 10:59 | Outpatient (BNVA) | payer MEDICARE, MEDICAID, SELFPAY ==
[2021-03-24 14:16] VITALS: BP 104/68; BP 112/72; BMI 31.3
== END ==
PROVIDERS: PCP Physician Assistant; Visit Provider Obstetrics & Gynecology
DX: Z78.0 Asymptomatic menopausal state (principal)
CPT/HCPCS: 99212

== ENCOUNTER 2021-12-15 09:39 | Outpatient (REF) | payer MEDICARE, MEDICAID, SELFPAY ==
[2021-03-24 14:16] VITALS: BP 104/68; BP 112/72; BMI 31.3
[2021-12-15 10:39] LABS: Hematocrit 36.9 % (37.0-47.0); Hemoglobin 12.2 g/dl (12.0-16.0); Mean Corpuscular HGB Conc 33.1 g/dl (31.0-35.0); Mean Corpuscular Hemoglobin 29.3 pg (27.0-33.0); Mean Corpuscular Volume 88.7 fL (80.0-98.0); Mean Platelet Volume 10.5 fL (9.4-12.3); Platelet Count 208 X10*3/uL (160-400); Red Blood Count 4.16 X10*6/uL (4.20-5.50); Red Cell Distribution Width 13.8 % (11.0-16.0); White Blood Count 5.5 X10*3/uL (4.8-10.8)
[2021-12-15 10:56] LABS: Estimated Average Glucose 108 mg/dL; Hemoglobin A1c % 5.4 %
[2021-12-15 11:00] LABS: Anion Gap 17 (12-20); Blood Urea Nitrogen 14 mg/dL (9-16); Calcium 9.1 mg/dL (8.4-10.2); Carbon Dioxide 27 mmol/L (22-29); Chloride 106 mmol/L (96-108); Estimated Glomerular Filt Rate > 60; Glucose Random 108 mg/dL (60-115); Potassium 4.6 mmol/L (3.3-5.1); Sodium 145 mmol/L (135-145)
[2021-12-15 11:03] LABS: Alanine Aminotransferase 15 U/L (0-31); Albumin Level 4.1 g/dL (3.5-5.0); Alkaline Phosphatase 93 U/L (39-117); Anion Gap 15 (12-20); Aspartate Amino Transferase 16 U/L (5-31); Bilirubin Total 0.7 mg/dL (0.0-1.0); Blood Urea Nitrogen 14 mg/dL (9-16); Carbon Dioxide 27 mmol/L (22-29); Chloride 106 mmol/L (96-108); Cholesterol 201 mg/dL; Estimated Glomerular Filt Rate > 60; Glucose Fasting 109 mg/dL (60-99); HDL Cholesterol 43 mg/dL; LDL Cholesterol Calculated 132 mg/dl; Potassium 4.3 mmol/L (3.3-5.1); Sodium 144 mmol/L (135-145); Total Protein 6.8 g/dL (6.5-8.0); Triglycerides 132 mg/dL
[2021-12-15 11:16] LABS: Microalbum/Creatinine Ratio Ur 11.4 ug/mg cr
[2021-12-15 11:22] LABS: TSH reflex Free T4 1.23 uIU/mL (0.32-4.0)
== END 2021-12-15 09:40 | disposition home or self-care (01) ==
LOC: HO.10HDL 09:39
PROVIDERS: Nurse Practitioner Family; Physician Assistant; Absent Provider Internal Medicine Cardiovascular Disease; Visit Provider Student in an Organized Health Care Education/Training Program
DX: E78.00 Pure hypercholesterolemia, unspecified (principal); E66.9 Obesity, unspecified; I10 Essential (primary) hypertension; I48.0 Paroxysmal atrial fibrillation
CPT/HCPCS: 36415; 80048; 80053; 80061; 82043; 83036; 84443; 85027

== ENCOUNTER 2022-01-26 13:02 | Outpatient (REF) | payer MEDICARE, MEDICAID, SELFPAY ==
[2021-03-24 14:16] VITALS: BP 104/68; BP 112/72; BMI 31.3
--- NOTE | ~2022-01-26 | MM_ITS ---
EXAMINATION: MM SCREENING DIGITAL BREAST TOMOSYNTHESIS, BILATERAL CLINICAL INFORMATION: Screening. Asymptomatic. The lifetime risk of breast cancer based on the Tyrer-Cuzick Model is 4%. COMPARISON: Mammography: 01/20/2021, 11/07/2019, 05/19/2017. TECHNIQUE: Digital breast tomosynthesis is performed in both the craniocaudal and mediolateral oblique views along with computer-aided detection (CAD). Synthesized 2D images are generated from the tomosynthesis. Technologist notes patient study limitations (right rotator cuff injury and left defibrillator). Positioning tailored to patient capabilities. FINDINGS: There are scattered areas of fibroglandular density (ACR BI-RADS breast composition Category b). There are no significant masses, abnormal calcifications, or other abnormalities. Parenchymal pattern is similar to prior studies. There is no developing density or architectural abnormality. The axilla and skin contours are unremarkable. No significant changes. MM/MM tomosynthesis screening BI IMPRESSION: -No mammographic evidence of malignancy. ASSESSMENT: BI-RADS 1: Negative RECOMMENDATION: Routine annual mammography screening. This patient's information was entered into a reminder system with a target due date for their next mammogram.
== END 2022-01-26 13:03 | disposition home or self-care (01) ==
LOC: HO.MAMMO 13:02
PROVIDERS: PCP Physician Assistant; Visit Provider Physician Assistant
DX: Z12.31 Encounter for screening mammogram for malignant neoplasm of breast (principal)
CPT/HCPCS: 77063; 77067

== ENCOUNTER 2022-02-11 12:21 | Outpatient (REF) | payer MEDICARE, MEDICAID, SELFPAY ==
[2021-03-24 14:16] VITALS: BP 104/68; BP 112/72; BMI 31.3
== END 2022-02-11 12:22 | disposition home or self-care (01) ==
LOC: HO.XRAY 12:21
PROVIDERS: PCP Internal Medicine; Visit Provider Physician Assistant
DX: Z13.89 Encounter for screening for other disorder (principal)

== ENCOUNTER → 2022-02-19 13:41 | Outpatient (BNVA) | payer MEDICARE, MEDICAID, SELFPAY ==
[2021-03-24 14:16] VITALS: BP 104/68; BP 112/72; BMI 31.3
== END ==
PROVIDERS: PCP Internal Medicine; Visit Provider Internal Medicine Cardiovascular Disease
DX: Z45.02 Encounter for adjustment and management of automatic implantable cardiac defibrillator (principal); I48.0 Paroxysmal atrial fibrillation; I42.8 Other cardiomyopathies; I95.9 Hypotension, unspecified
CPT/HCPCS: 93005; 99212

== ENCOUNTER 2022-02-20 13:44 | Outpatient (REF) | payer MEDICARE, MEDICAID, SELFPAY ==
[2021-03-24 14:16] VITALS: BP 104/68; BP 112/72; BMI 31.3
--- NOTE | ~2022-02-20 | CT_ITS ---
EXAMINATION: CT SHOULDER WITHOUT CONTRAST, RIGHT CLINICAL INFORMATION: Impingement syndrome. Right shoulder pain. COMPARISON: Right shoulder radiographs dated 07/10/2021. Right shoulder MRI dated 01/03/2018. TECHNIQUE: Contiguous axial CT images of the right shoulder were obtained without contrast. Sagittal and coronal reformats were provided and reviewed. This CT examination was performed using dose optimization techniques as appropriate, variously including the following: *Automated exposure control *Adjustment of mA and/or kV according to patient size (this includes techniques or standardized protocols for targeted exams where dose is matched to indication/reason for exam; i.e. extremities or head) *Use of iterative reconstruction technique DLP: 602 mGy-cm FINDINGS: No acute fracture or dislocation. Glenohumeral joint space narrowing with small marginal osteophytes. Inferior glenohumeral chondrocalcinosis. Moderate acromioclavicular joint space narrowing with marginal osteophytes. Lateral subacromial spurring. No significant bony remodeling. No concerning lytic or blastic osseous lesion. Faint calcifications within the distal aspect of the junctional fibers consistent with mild distal supraspinatus and infraspinatus calcific tendinitis. The rotator cuff tendons are grossly intact, however, evaluation is significantly limited on CT examination. No large, full-thickness tear. No significant muscle atrophy. No large glenohumeral joint effusion. No abnormal soft tissue mass or fluid collection. No axillary lymphadenopathy. The visualized right lung is clear. CT/CT shoulder RT wo IV con IMPRESSION: 1. No acute fracture or dislocation. 2. [id number] glenohumeral osteoarthritis with inferior chondrocalcinosis. 3. Moderate acromioclavicular osteoarthritis. Lateral subacromial spurring. 4. Mild distal supraspinatus and infraspinatus calcific tendinitis. No large, full-thickness rotator cuff tear, however, evaluation is significantly limited on CT examination.
== END 2022-02-20 13:45 | disposition home or self-care (01) ==
LOC: HO.CT 13:44
PROVIDERS: PCP Internal Medicine; Visit Provider Internal Medicine
DX: M75.41 Impingement syndrome of right shoulder (principal)
CPT/HCPCS: 73200

== ENCOUNTER 2022-04-16 11:58 | Emergency (ER) | payer MEDICARE, MEDICAID, SELFPAY ==
[2021-03-24 14:16] VITALS: BP 104/68; BP 112/72; BMI 31.3
--- NOTE | ~2022-04-16 | CT_ITS ---
EXAMINATION: CT ABDOMEN AND PELVIS WITHOUT CONTRAST CLINICAL INFORMATION: Left flank pain/left lower quadrant pain/hematuria COMPARISON: CT abdomen pelvis 07/29/2020 TECHNIQUE: Multidetector volumetric imaging was performed from the superior aspect of the liver through the pubic symphysis. Sagittal and coronal reformatted images were obtained on the technologist's workstation. This CT examination was performed using dose optimization techniques as appropriate, variously including the following: *Automated exposure control *Adjustment of mA and/or kV according to patient size (this includes techniques or standardized protocols for targeted exams where dose is matched to indication/reason for exam; i.e. extremities or head) *Use of iterative reconstruction technique DLP: 759 mGy-cm FINDINGS: LUNG BASES: Cardiomegaly is again noted with a 3-lead pacemaker in place. IV basilar atelectasis. No effusions, infiltrates or lung masses. LIVER, GALLBLADDER, AND BILIARY TREE: The liver is normal in size, shape, and attenuation. No focal hepatic lesion or biliary ductal dilatation is present. The gallbladder is unremarkable with no evidence of radiopaque gallstones, gallbladder wall thickening, or obvious pericholecystic inflammatory changes. PANCREAS: Unremarkable. SPLEEN: Unremarkable. ADRENAL GLANDS: Unremarkable. KIDNEYS AND URETERS: The kidneys are normal in size, shape, and attenuation. Bilateral nonobstructing calculi are again seen. On the left, there is mild hydronephrosis with perirenal stranding and dilatation of the ureter down to the level of a 5 mm calculus in the distal ureter about 7 cm above the ureterovesical junction. No right-sided hydronephrosis, right side hydroureter, or right-sided calculi seen. No perinephric stranding. No renal masses are seen. BLADDER: Unremarkable. GASTROINTESTINAL TRACT: A small posterior gastric diverticulum is present. The small and large bowel are unremarkable. The appendix is unremarkable. ABDOMINAL WALL: No significant hernia is appreciated. LYMPH NODES: No retroperitoneal lymphadenopathy. VASCULAR: Unremarkable. Some minimal calcific plaque present in the aorta and iliac vessels without aneurysm. PELVIC VISCERA: The uterus and adnexa are unremarkable. OSSEOUS STRUCTURES: Marked degenerative changes are present in the spine from L3 through S1. CT/CT abdomen pelvis wo IV con IMPRESSION: 1. Obstructing 5 mm distal left ureteral calculus with associated hydronephrosis. 2. Other incidental findings as described above including moderately extensive bilateral nephrolithiasis. Fleischner guidelines were followed.
[2022-04-16 11:59] VITALS: BP 159/83; PULSE 76; RESP 18; TEMP 36.1; O2SAT 97; BMI 30.9
--- NOTE | 2022-04-16 11:59 | ED_ITS ---
HPI - General Adult General Chief complaint: Abdominal Pain <Meron Tesfaye CNP - Last Filed: 04/16/22 12:05> Stated complaint: L side pain rad to leg <Meron Tesfaye CNP - Last Filed: 04/16/22 12:05> Time Seen by Provider: 04/16/22 16:43 <Meron Tesfaye CNP - Last Filed: 04/16/22 12:05> Source: patient <Zander Fenton MD - Last Filed: 04/16/22 17:22> Mode of arrival: ambulatory <Zander Fenton MD - Last Filed: 04/16/22 17:22> Limitations: no limitations <Zander Fenton MD - Last Filed: 04/16/22 17:22> History of Present Illness HPI narrative: History of kidney stone noticed pain with left flank radiating to the left lower abdomen earlier today also has chronic low back pain with sciatica no nausea no vomiting no hematuria last time patient had a kidney stone a few years ago. <Zander Fenton MD - Last Filed: 04/16/22 17:22> Related Data Home medications: Home Medications Medication Instructions Recorded Confirmed acetaminophen 500 mg tablet 1,000 mg PO Q6H PRN Pain (Scale 11/09/19 02/19/22 (Tylenol Extra Strength) Score 1-3) artifi.tears(hypromellose)(PF) 0.3 1 drp ophthalmic (eye) Q4-6H PRN 03/27/20 02/19/22 % eye drops Dry Eyes zolpidem 10 mg tablet 5 mg PO BEDTIME PRN Sleep 05/09/21 02/19/22 apixaban 5 mg tablet (Eliquis) 5 mg PO BID 12/01/21 02/19/22 cetirizine 10 mg tablet 10 mg PO DAILY PRN 12/01/21 02/19/22 Previous Rx's Medication Instructions Recorded clonazepam 0.5 mg tablet (Klonopin) 0.5 mg PO BEDTIME PRN Sleep 30 05/17/21 days #30 tabs furosemide 40 mg tablet 40 mg PO DAILY sob, swelling #90 07/04/21 tabs blood pressure test kit-large #1 ea 08/14/21 triamcinolone acetonide 0.1 % 1 appl topical DAILY 15 days #80 12/15/21 topical cream grams sotalol 80 mg tablet 120 mg PO BID #60 tabs 12/29/21 sacubitril 24 mg-valsartan 26 mg 1 tab PO BID #60 tabs 02/19/22 tablet (Entresto) amoxicillin 875 mg-potassium 1 tab PO BID #20 tabs 04/02/22 clavulanate 125 mg tablet benzonatate 100 mg capsule 100 mg PO TID cough #20 caps 04/02/22 acetaminophen 300 mg-codeine 30 mg 1 tab PO Q8H PRN pain #20 tabs 04/16/22 tablet tamsulosin 0.4 mg capsule (Flomax) 0.4 mg PO BEDTIME #10 caps 04/16/22 <Meron Tesfaye CNP - Last Filed: 04/16/22 12:05> Allergies/adverse reactions: Allergies Allergy/AdvReac Type Severity Reaction Status Date / Time rivaroxaban [From XARELTO] AdvReac Intermediate LEG EDEMA, Verified 12/15/21 11:22 RASH <Meron Tesfaye CNP - Last Filed: 04/16/22 12:05> Review of Systems Review of Systems: Yes all other systems are reviewed and are negative <Zander Fenton MD - Last Filed: 04/16/22 17:22> [facility] Past Medical History Medical History: Medical History Biventricular ICD (implantable cardioverter-defibrillator) in place Encounter for monitoring sotalol therapy Graves' disease in remission Heart failure with reduced ejection fraction History of cardioversion HLD (hyperlipidemia) HTN (hypertension) Hypotension arterial Nonischemic cardiomyopathy Obesity (BMI 30-39.9) Osteoporosis screening PAF (paroxysmal atrial fibrillation) SVT (supraventricular tachycardia) Transaminitis <Meron Tesfaye CNP - Last Filed: 04/16/22 12:05> Surgical History: Surgical History History of cardiac defibrillator placement History of radiofrequency ablation procedure for cardiac arrhythmia Hx of cardiac catheterization (~06/2017) Hx of tubal ligation <Meron Tesfaye CNP - Last Filed: 04/16/22 12:05> Family History Family History: Family History Father Stroke Hypertension Mother Hypertension Diabetes Daughter AVM (arteriovenous malformation) Son No problems noted. Sister No problems noted. Brother No problems noted. Brother No problems noted. Brother No problems noted. Brother No problems noted. <Meron Tesfaye CNP - Last Filed: 04/16/22 12:05> Social History Social History: Social History Household Members: Significant Other Housing: House Do you presently have visiting nurse or other home services: No Alcohol intake: never Patient Tobacco Use Status: Never used Tobacco Smoked in Last 30 Days: No e-Cigarette/Vaping Use: Never Used Second Hand Smoke Exposure: No Use of substances other than those prescribed or required for medical reasons: No Advance Directives: Yes Advance Directives Information Provided: Yes Advance Directives on File: No service: No Current occupational status: unemployed Cognitive needs: No Hearing needs: No Vision needs: Yes <Meron Tesfaye CNP - Last Filed: 04/16/22 12:05> Physical Exam ED Vital Signs: Vital Signs - 24 hr 04/16/22 11:59 04/16/22 16:54 Temperature 96.9 F Pulse Rate 76 73 Respiratory Rate 18 16 Blood Pressure 159/83 H 175/90 H Pulse Oximetry 97 97 Oxygen Delivery Method Room Air Room Air BMI result Body Mass Index 30.9 <Meron Tesfaye CNP - Last Filed: 04/16/22 12:05> Vital Signs - 24 hr 04/16/22 11:59 04/16/22 16:54 Temperature 96.9 F Pulse Rate 76 73 Respiratory Rate 18 16 Blood Pressure 159/83 H 175/90 H Pulse Oximetry 97 97 Oxygen Delivery Method Room Air Room Air BMI result Body Mass Index 30.9 <Zander Fenton MD - Last Filed: 04/16/22 17:22> Appearance: Alert. Oriented X3. No acute distress. Eyes: PERRLA, No Nystagmus ENT: Pharynx normal. Oral Mucosa moist Neck: Normal inspection. Neck supple. CVS: Normal heart rate and rhythm. Pulses normal. Respiratory: No respiratory distress. Equal air entry bilateral, no wh eezing/rales/rhonchi Abdomen: Soft and nontender. Bowel sounds are present, no mass palpable, L CVA tenderness Skin: Skin warm and dry. Normal skin color. Normal skin turgor. Extremities: No lower extremity edema. No calf tenderness SLR + l side 70 Neuro: Oriented X 3. No motor deficit. No sensory deficit.No cerebellar signs , cranial nerves II-XII intact <Zander Fenton MD - Last Filed: 04/16/22 17:22> Course Course Course Narrative: This is an RME: Additional HPI, ROS, PE not included below will be deferred to primary provider. Patient is a 66-year-old female who presents emergency department for evaluation of left flank/back pain radiating to the left lower quadrant of her abdomen and down the entire left leg. Onset of symptoms was this morning. Denies precipitating injury. Also has associated numbness/tingling to the left foot. Denies dysuria, hematuria, urinary frequency, bladder bowel dysfunction, diarrhea. Denies history of similar pain. Plan: labs, urinalysis. placed back in waiting room pending bed availability <Meron Tesfaye CNP - Last Filed: 04/16/22 12:05> Medications Administered Discontinued Medications Generic Name Dose Route Start Last Admin Trade Name Freq PRN Reason Stop Dose Admin Acetaminophen/Codeine Phosphate 1 tab 04/16/22 17:00 04/16/22 17:10 Acetaminophen With Codeine # 3 Tablet PO 04/16/22 17:01 1 tab ONCE ONE Administration Tamsulosin HCl 0.4 mg 04/16/22 17:00 04/16/22 17:10 Tamsulosin Hcl 0.4 Mg Capsule PO 04/16/22 17:01 0.4 mg ONCE ONE Administration <Meron Tesfaye CNP - Last Filed: 04/16/22 12:05> Medications Administered Discontinued Medications Generic Name Dose Route Start Last Admin Trade Name Freq PRN Reason Stop Dose Admin Acetaminophen/Codeine Phosphate 1 tab 04/16/22 17:00 04/16/22 17:10 Acetaminophen With Codeine # 3 Tablet PO 04/16/22 17:01 1 tab ONCE ONE Administration Tamsulosin HCl 0.4 mg 04/16/22 17:00 04/16/22 17:10 Tamsulosin Hcl 0.4 Mg Capsule PO 04/16/22 17:01 0.4 mg ONCE ONE Administration <Zander Fenton MD - Last Filed: 04/16/22 17:22> Medical Decision Making Medical Decision Making [facility] Narrative: Patient with left ureteric stone with hydronephrosis refusing IV line or pain medication asking only for Tylenol by mouth. Will give her Tylenol with codeine and Flomax advised to follow with urologist patient does have chronic sciatica pain the left side will follow-up with PCP <Zander Fenton MD - Last Filed: 04/16/22 17:22> Lab Data [facility] Lab Attestation statement: I reviewed the patient's lab results. <Zander Fenton MD - Last Filed: 04/16/22 17:22> Result Diagrams: 04/16/22 12:21 04/16/22 12:21 <Meron Tesfaye CNP - Last Filed: 04/16/22 12:05> Labs: Lab Results 04/16/22 04/16/22 04/16/22 Range/Units 12:21 12:21 12:21 WBC 11.2 H (4.8-10.8) X10*3/uL RBC 4.70 (4.20-5.50) X10*6/uL Hgb 13.2 (12.0-16.0) g/dl Hct 40.0 (37.0-47.0) % MCV 85.1 (80.0-98.0) fL MCH 28.1 (27.0-33.0) pg MCHC 33.0 (31.0-35.0) g/dl RDW 13.2 (11.0-16.0) % Plt Count 245 (160-400) X10*3/uL MPV 10.4 (9.4-12.3) fL Immature Gran % (Auto) 0.3 (0.0-0.4) % Neut % (Auto) 78.4 H (45-73) % Lymph % (Auto) 14.1 L (20-40) % Cobb % (Auto) 5.7 (2-11) % Eos % (Auto) 1.1 (0-4) % Baso % (Auto) 0.4 (0-2) % Lymph # (Auto) 1.6 (1.2-4.9) X10*3/uL Cobb # (Auto) 0.6 (0.1-1.2) X10*3/uL Eos # (Auto) 0.1 (0.0-0.4) X10*3/uL Baso # (Auto) 0.0 (0.0-0.2) X10*3/uL Abs Immat Gran (auto) 0.03 (0.00-0.03) X10*3/uL Absolute Neuts (auto) 8.8 H (2.0-8.3) x10*3/uL Absolute Nucleated RBC 0.000 (0.0-0.012) X10*3/uL Nucleated RBC % (auto) 0.0 (0.0-0.2) /100WBC Sodium 137 (135-145) mmol/L Potassium 4.3 (3.3-5.1) mmol/L Chloride 100 (96-108) mmol/L Carbon Dioxide 27 (22-29) mmol/L Anion Gap 14 (12-20) BUN 16 (9-16) mg/dL Creatinine 0.83 (0.5-1.4) mg/dL Estim Creat Clear Calc 83.3 Estimated GFR > 60 Random Glucose 128 H (60-115) mg/dL Calcium 9.1 (8.4-10.2) mg/dL Total Bilirubin 1.4 H (0.0-1.0) mg/dL AST 44 H (5-31) U/L ALT 44 H (0-31) U/L Alkaline Phosphatase 121 H (39-117) U/L Total Protein 7.3 (6.5-8.0) g/dL Albumin 4.5 (3.5-5.0) g/dL Urine Color Yellow Urine Appearance Clear Urine pH 8.0 (5.0-9.0) Ur Specific [place] <= 1.005 (1.005-1.025) Urine Protein Negative (Neg-Trace) mg/dL Urine Glucose (UA) Negative (Negative) mg/dL Urine Ketones Negative (Negative) mg/dL Urine Blood Large (3+) H (Negative) Urine Nitrite Negative (Negative) Ur Leukocyte Esterase Negative (Negative) Urine RBC >20 H (0-2) /HPF Urine WBC 0-5 (0-5) /HPF Ur Squamous Epith Cells 0-2 (0-2) /HPF Urine Bacteria None Seen (None Seen) Hyaline Casts 0-2 (0-2) /LPF <Meron Yemiijailene Tesfaye, VETERINARY PHYSIOLOGIST - Last Filed: 04/16/22 12:05> Lab Results 04/16/22 04/16/22 04/16/22 Range/Units 12:21 12:21 12:21 WBC 11.2 H (4.8-10.8) X10*3/uL RBC 4.70 (4.20-5.50) X10*6/uL Hgb 13.2 (12.0-16.0) g/dl Hct 40.0 (37.0-47.0) % MCV 85.1 (80.0-98.0) fL MCH 28.1 (27.0-33.0) pg MCHC 33.0 (31.0-35.0) g/dl RDW 13.2 (11.0-16.0) % Plt Count 245 (160-400) X10*3/uL MPV 10.4 (9.4-12.3) fL Immature Gran % (Auto) 0.3 (0.0-0.4) % Neut % (Auto) 78.4 H (45-73) % Lymph % (Auto) 14.1 L (20-40) % Cobb % (Auto) 5.7 (2-11) % Eos % (Auto) 1.1 (0-4) % Baso % (Auto) 0.4 (0-2) % Lymph # (Auto) 1.6 (1.2-4.9) X10*3/uL Cobb # (Auto) 0.6 (0.1-1.2) X10*3/uL Eos # (Auto) 0.1 (0.0-0.4) X10*3/uL Baso # (Auto) 0.0 (0.0-0.2) X10*3/uL Abs Immat Gran (auto) 0.03 (0.00-0.03) X10*3/uL Absolute Neuts (auto) 8.8 H (2.0-8.3) x10*3/uL Absolute Nucleated RBC 0.000 (0.0-0.012) X10*3/uL Nucleated RBC % (auto) 0.0 (0.0-0.2) /100WBC Sodium 137 (135-145) mmol/L Potassium 4.3 (3.3-5.1) mmol/L Chloride 100 (96-108) mmol/L Carbon Dioxide 27 (22-29) mmol/L Anion Gap 14 (12-20) BUN 16 (9-16) mg/dL Creatinine 0.83 (0.5-1.4) mg/dL Estim Creat Clear Calc 83.3 Estimated GFR > 60 Random Glucose 128 H (60-115) mg/dL Calcium 9.1 (8.4-10.2) mg/dL Total Bilirubin 1.4 H (0.0-1.0) mg/dL AST 44 H (5-31) U/L ALT 44 H (0-31) U/L Alkaline Phosphatase 121 H (39-117) U/L Total Protein 7.3 (6.5-8.0) g/dL Albumin 4.5 (3.5-5.0) g/dL Urine Color Yellow Urine Appearance Clear Urine pH 8.0 (5.0-9.0) Ur Specific [place] <= 1.005 (1.005-1.025) Urine Protein Negative (Neg-Trace) mg/dL Urine Glucose (UA) Negative (Negative) mg/dL Urine Ketones Negative (Negative) mg/dL Urine Blood Large (3+) H (Negative) Urine Nitrite Negative (Negative) Ur Leukocyte Esterase Negative (Negative) Urine RBC >20 H (0-2) /HPF Urine WBC 0-5 (0-5) /HPF Ur Squamous Epith Cells 0-2 (0-2) /HPF Urine Bacteria None Seen (None Seen) Hyaline Casts 0-2 (0-2) /LPF <Zander Fenton MD - Last Filed: 04/16/22 17:22> Radiology Impression Discussion of test interpretation with radiology: I have reviewed the radiologist's reading. <Zander Fenton MD - Last Filed: 04/16/22 17:22> Radiologist Impression: CT/CT abdomen pelvis wo IV con IMPRESSION: 1.? Obstructing 5 mm distal left ureteral calculus with associated hydronephrosis. 2.? Other incidental findings as described above including moderately extensive bilateral nephrolithiasis. ? <Zander Fenton MD - Last Filed: 04/16/22 17:22> Discharge Plan Discharge Clinical Impression: Kidney stone on left side <Meron Tesfaye CNP - Last Filed: 04/16/22 12:05> Patient Disposition: Home, Self-Care <Meron Tesfaye CNP - Last Filed: 04/16/22 12:05> Instructions: Kidney Stones (ED) <Meron Tesfaye CNP - Last Filed: 04/16/22 12:05> Additional Instructions: Drink plenty of fluids Pain medication as prescribed Flomax for opening of the kidney tube Follow with urologist <Meron Tesfaye CNP - Last Filed: 04/16/22 12:05> Prescriptions: New acetaminophen-codeine 300-30 mg tablet 1 tab PO Q8H PRN (Reason: pain) Qty: 20 0RF tamsulosin [Flomax] 0.4 mg capsule 0.4 mg PO BEDTIME Qty: 10 0RF No Action clonazepam [Klonopin] 0.5 mg tablet 0.5 mg PO BEDTIME PRN (Reason: Sleep) 30 Days Qty: 30 0RF Rx Instructions: administer 30 minutes before bedtime furosemide 40 mg tablet 40 mg PO DAILY Qty: 90 3RF sotalol 80 mg tablet 120 mg PO BID Qty: 60 5RF benzonatate 100 mg capsule 100 mg PO TID Qty: 20 0RF amoxicillin-pot clavulanate 875-125 mg tablet 1 tab PO BID Qty: 20 0RF zolpidem 10 mg tablet 5 mg PO BEDTIME PRN (Reason: Sleep) (DME) blood pressure test kit-large Kit See Rx Instructions .Route Qty: 1 0RF Rx Instructions: As directed triamcinolone acetonide 0.1 % cream 1 appl topical DAILY 15 Days Qty: 80 1RF acetaminophen [Tylenol Extra Strength] 500 mg tablet 1,000 mg PO Q6H PRN (Reason: Pain (Scale Score 1-3)) artifi.tears(hypromellose)(PF) 0.3 % drops 1 drp ophthalmic (eye) Q4-6H PRN (Reason: Dry Eyes) Eliquis 5 mg tablet 5 mg PO BID cetirizine 10 mg tablet 10 mg PO DAILY PRN Entresto 24-26 mg tablet 1 tab PO BID Qty: 60 3RF <Meron eTsfaye CNP - Last Filed: 04/16/22 12:05> Referrals: Dusty Galicia MD [Physician] - 3 days <Meron Tesfaye CNP - Last Filed: 04/16/22 12:05>
[2022-04-16 12:36] LABS: MANUAL DIFF FLAG NO
[2022-04-16 12:40] LABS: Appearance Urine Clear; Basophils Percent Auto 0.4 % (0-2); Color Urine Yellow; Eosinophils Absolute Auto 0.1 X10*3/uL (0.0-0.4); Eosinophils Percent Auto 1.1 % (0-4); Glucose Urine UA Negative (Negative); Hemoglobin 13.2 g/dl (12.0-16.0); Imm Gran Abs Auto 0.03 X10*3/uL (0.00-0.03); Imm Gran Pct Auto 0.3 % (0.0-0.4); Leukocyte Esterase Urine Negative (Negative); Lymphocytes Absolute Auto 1.6 X10*3/uL (1.2-4.9); Lymphocytes Percent Auto 14.1 % (20-40); Mean Corpuscular Hemoglobin 28.1 pg (27.0-33.0); Mean Corpuscular Volume 85.1 fL (80.0-98.0); Mean Platelet Volume 10.4 fL (9.4-12.3); Monocytes Absolute Auto 0.6 X10*3/uL (0.1-1.2); Monocytes Percent Auto 5.7 % (2-11); Neutrophils Absolute Auto 8.8 x10*3/uL (2.0-8.3); Neutrophils Percent Auto 78.4 % (45-73); Nitrite Urine Negative (Negative); Platelet Count 245 X10*3/uL (160-400); Red Cell Distribution Width 13.2 % (11.0-16.0); Specific Gravity - Urine <= 1.005 (1.005-1.025); UMIC TRIGGER UACC YES; Urine Blood Large (3+) (Negative); Urine Ketones Negative (Negative); Urine Protein Negative (Neg-Trace); White Blood Count 11.2 X10*3/uL (4.8-10.8)
[2022-04-16 12:42] LABS: Bacteria Urine None Seen (None Seen); Hyaline Casts Urine 0-2 /LPF (0-2); RBC Urine >20 /HPF (0-2); Squamous Epithelial Cell Urine 0-2 /HPF (0-2); WBC Urine 0-5 /HPF (0-5)
[2022-04-16 14:46] LABS: Alanine Aminotransferase 44 U/L (0-31); Albumin Level 4.5 g/dL (3.5-5.0); Alkaline Phosphatase 121 U/L (39-117); Anion Gap 14 (12-20); Aspartate Amino Transferase 44 U/L (5-31); Bilirubin Total 1.4 mg/dL (0.0-1.0); Blood Urea Nitrogen 16 mg/dL (9-16); Calcium 9.1 mg/dL (8.4-10.2); Carbon Dioxide 27 mmol/L (22-29); Chloride 100 mmol/L (96-108); Creatinine Clr Calc Pharmacy 83.3; Estimated Glomerular Filt Rate > 60; Glucose Random 128 mg/dL (60-115); Potassium 4.3 mmol/L (3.3-5.1); Sodium 137 mmol/L (135-145); Total Protein 7.3 g/dL (6.5-8.0)
[2022-04-16 16:54] VITALS: BP 175/90; PULSE 73; RESP 16; O2SAT 97
[2022-04-16] MEDS: Tamsulosin HCL 0.4 MG CAPSULE PO (17:10)
== END 2022-04-16 18:33 | disposition home or self-care (01) ==
PROVIDERS: Nurse Practitioner Family; Emergency Provider Internal Medicine; PCP Physician Assistant
DX: N20.0 Calculus of kidney (principal); R10.32 Left lower quadrant pain; M54.50 Low back pain, unspecified; Z79.899 Other long term (current) drug therapy
CPT/HCPCS: 36415; 74176; 80053; 81001; 85025; 99284

== ENCOUNTER → 2022-05-07 08:26 | Outpatient (BNVA) | payer MEDICARE, MEDICAID, SELFPAY ==
[2021-03-24 14:16] VITALS: BP 104/68; BP 112/72; BMI 31.3
== END ==
PROVIDERS: PCP Physician Assistant; Visit Provider Nurse Practitioner Family
DX: N20.0 Calculus of kidney (principal)
CPT/HCPCS: 99202

== ENCOUNTER 2022-05-19 15:46 | Outpatient (REF) | payer MEDICARE, MEDICAID, SELFPAY ==
[2021-03-24 14:16] VITALS: BP 104/68; BP 112/72; BMI 31.3
--- NOTE | ~2022-05-19 | US_ITS ---
EXAMINATION: US RETROPERITONEAL LIMITED (RENAL ONLY) CLINICAL INFORMATION: Renal calculus. COMPARISON: CT scan of the abdomen and pelvis dated 04/16/2022. TECHNIQUE: Multiple 2-D grayscale and color Doppler ultrasound images of the kidneys were obtained. FINDINGS: RIGHT KIDNEY: 12.5 x 4.5 x 6.0 cm (SAG x AP x TRV). An interpolar echogenic focus measures 0.5 cm. A lower pole echogenic focus measures 0.7 cm. A second lower pole echogenic focus measures 0.8 cm. No hydronephrosis. Color Doppler showed no abnormal vascular flow. LEFT KIDNEY: 11.2 x 4.7 x 5.0 cm (SAG x AP x TRV). An interpolar echogenic focus measures 0.4 cm. No left hydronephrosis. Color Doppler showed no abnormal vascular flow. US/US renal BI IMPRESSION: Nonobstructing intrarenal calculi bilaterally.
== END 2022-05-19 15:47 | disposition home or self-care (01) ==
LOC: HO.US 15:46
PROVIDERS: PCP Physician Assistant; Visit Provider Nurse Practitioner Family
DX: N20.0 Calculus of kidney (principal)
CPT/HCPCS: 76775

== ENCOUNTER → 2022-05-22 10:03 | Outpatient (BNVA) | payer MEDICARE, MEDICAID, SELFPAY ==
[2021-03-24 14:16] VITALS: BP 104/68; BP 112/72; BMI 31.3
== END ==
PROVIDERS: PCP Physician Assistant; Visit Provider Nurse Practitioner Family
DX: N20.0 Calculus of kidney (principal); Z79.02 Long term (current) use of antithrombotics/antiplatelets
CPT/HCPCS: 99212

== ENCOUNTER 2022-05-26 13:22 | Outpatient (REF) | payer MEDICARE, MEDICAID, SELFPAY ==
[2021-03-24 14:16] VITALS: BP 104/68; BP 112/72; BMI 31.3
[2022-05-26 14:51] LABS: Hematocrit 38.5 % (37.0-47.0); Mean Corpuscular HGB Conc 33.8 g/dl (31.0-35.0); Mean Corpuscular Hemoglobin 29.5 pg (27.0-33.0); Mean Corpuscular Volume 87.5 fL (80.0-98.0); Mean Platelet Volume 10.8 fL (9.4-12.3); Platelet Count 224 X10*3/uL (160-400); Red Cell Distribution Width 13.5 % (11.0-16.0); White Blood Count 7.9 X10*3/uL (4.8-10.8)
[2022-05-26 15:27] LABS: Anion Gap 13 (12-20); Blood Urea Nitrogen 15 mg/dL (9-16); Calcium 9.2 mg/dL (8.4-10.2); Carbon Dioxide 28 mmol/L (22-29); Chloride 105 mmol/L (96-108); Estimated Glomerular Filt Rate > 60; Glucose Random 98 mg/dL (60-115); Potassium 4.6 mmol/L (3.3-5.1); Sodium 141 mmol/L (135-145)
== END 2022-05-26 13:23 | disposition home or self-care (01) ==
LOC: HO.LAB 13:22
PROVIDERS: PCP Physician Assistant; Referring Provider Physician Assistant; Visit Provider Internal Medicine Cardiovascular Disease
DX: I42.8 Other cardiomyopathies (principal); I50.20 Unspecified systolic (congestive) heart failure; I48.0 Paroxysmal atrial fibrillation; Z95.810 Presence of automatic (implantable) cardiac defibrillator
CPT/HCPCS: 36415; 80048; 85027; 93005; 99212

== ENCOUNTER 2022-06-15 11:29 | Outpatient (REF) | payer MEDICARE, MEDICAID, SELFPAY ==
[2021-03-24 14:16] VITALS: BP 104/68; BP 112/72; BMI 31.3
[2022-06-15 13:11] LABS: Alanine Aminotransferase 18 U/L (0-31); Albumin Level 4.4 g/dL (3.5-5.0); Alkaline Phosphatase 101 U/L (39-117); Aspartate Amino Transferase 20 U/L (5-31); Bilirubin Direct 0.2 mg/dL (0.0-0.5); Bilirubin Total 0.9 mg/dL (0.0-1.0); Total Protein 7.2 g/dL (6.5-8.0)
== END 2022-06-15 11:30 | disposition home or self-care (01) ==
LOC: HO.LAB 11:29
PROVIDERS: Visit Provider Physician Assistant
DX: R79.89 Other specified abnormal findings of blood chemistry (principal)
CPT/HCPCS: 36415; 80076; 81003

== ENCOUNTER 2022-07-15 12:23 | Outpatient (REF) | payer MEDICARE, MEDICAID, SELFPAY ==
[2021-03-24 14:16] VITALS: BP 104/68; BP 112/72; BMI 31.3
[2022-07-15 14:05] LABS: Appearance Urine Clear; Color Urine Yellow; Glucose Urine UA Negative (Negative); Leukocyte Esterase Urine Negative (Negative); Nitrite Urine Negative (Negative); PH 6.5 (5.0-9.0); Specific Gravity - Urine <= 1.005 (1.005-1.025); Urine Blood Negative (Negative); Urine Ketones Negative (Negative); Urine Protein Negative (Neg-Trace)
== END 2022-07-15 12:24 | disposition home or self-care (01) ==
LOC: HO.LAB 12:23
PROVIDERS: PCP Physician Assistant; Visit Provider Physician Assistant
DX: R30.0 Dysuria (principal); N20.0 Calculus of kidney
CPT/HCPCS: 81003

== ENCOUNTER → 2022-09-03 23:59 | Outpatient (BNV) | payer MEDICARE, MEDICAID, SELFPAY ==
[2021-03-24 14:16] VITALS: BP 104/68; BP 112/72; BMI 31.3
--- NOTE | 2022-09-09 14:34 | MHC.OFFVIS ---
Intake Intake Visit Reasons: Remote ICD Check- [employer] Allergies rivaroxaban [From XARELTO] Adverse Reaction (Intermediate, Verified 07/15/22 12:03) LEG EDEMA, RASH PFSH Medical History Biventricular ICD (implantable cardioverter-defibrillator) in place Encounter for monitoring sotalol therapy Graves' disease in remission Heart failure with reduced ejection fraction History of cardioversion HLD (hyperlipidemia) HTN (hypertension) Hypotension arterial Nonischemic cardiomyopathy Obesity (BMI 30-39.9) Osteoporosis screening PAF (paroxysmal atrial fibrillation) SVT (supraventricular tachycardia) Transaminitis Surgical History History of cardiac defibrillator placement History of radiofrequency ablation procedure for cardiac arrhythmia Hx of cardiac catheterization (~06/2017) Hx of tubal ligation Family History Father Stroke Hypertension Mother Hypertension Diabetes Daughter AVM (arteriovenous malformation) Son No problems noted. Sister No problems noted. Brother No problems noted. Brother No problems noted. Brother No problems noted. Brother No problems noted. Social History Household Members: Significant Other Housing: House Do you presently have visiting nurse or other home services: No Alcohol intake: never Patient Tobacco Use Status: Never used Tobacco e-Cigarette/Vaping Use: Never Used Second Hand Smoke Exposure: No service: No Current occupational status: unemployed Cognitive needs: No Hearing needs: No Vision needs: Yes Female Reproductive History Menstrual Age of Menarche: 11 Office Procedures Cardiac Device Check Cardiac Device Check Details: Remote ICD report generated 09/03/2022. ICD function is adequate [id number] Cardiac Interrogation, implant defibrillator w/interim Procedure code (CPT) selection complete Coding Level of Care Code Procedure Only Diagnoses CPT Codes Cardiac Device Check - Cardiac Device 13: [id number] Cardiac Interrogation, implant defibrillator w/interim ([id number])
== END ==
PROVIDERS: PCP Physician Assistant; Visit Provider Internal Medicine Cardiovascular Disease
DX: I42.8 Other cardiomyopathies (principal); Z95.810 Presence of automatic (implantable) cardiac defibrillator
CPT/HCPCS: 93295

== ENCOUNTER → 2022-09-03 23:59 | Outpatient (BNV) | payer MEDICARE, MEDICAID, SELFPAY ==
[2021-03-24 14:16] VITALS: BP 104/68; BP 112/72; BMI 31.3
--- NOTE | 2022-09-09 14:33 | MHC.OFFVIS ---
Intake Intake Visit Reasons: Remote HF Monitoring- [employer] Allergies rivaroxaban [From XARELTO] Adverse Reaction (Intermediate, Verified 07/15/22 12:03) LEG EDEMA, RASH PFSH Medical History Biventricular ICD (implantable cardioverter-defibrillator) in place Encounter for monitoring sotalol therapy Graves' disease in remission Heart failure with reduced ejection fraction History of cardioversion HLD (hyperlipidemia) HTN (hypertension) Hypotension arterial Nonischemic cardiomyopathy Obesity (BMI 30-39.9) Osteoporosis screening PAF (paroxysmal atrial fibrillation) SVT (supraventricular tachycardia) Transaminitis Surgical History History of cardiac defibrillator placement History of radiofrequency ablation procedure for cardiac arrhythmia Hx of cardiac catheterization (~06/2017) Hx of tubal ligation Family History Father Stroke Hypertension Mother Hypertension Diabetes Daughter AVM (arteriovenous malformation) Son No problems noted. Sister No problems noted. Brother No problems noted. Brother No problems noted. Brother No problems noted. Brother No problems noted. Social History Household Members: Significant Other Housing: House Do you presently have visiting nurse or other home services: No Alcohol intake: never Patient Tobacco Use Status: Never used Tobacco e-Cigarette/Vaping Use: Never Used Second Hand Smoke Exposure: No service: No Current occupational status: unemployed Cognitive needs: No Hearing needs: No Vision needs: Yes Female Reproductive History Menstrual Age of Menarche: 11 Office Procedures Cardiac Device Check Cardiac Device Check Details: Remote heart failure report generated 09/03/2022. Heart failure parameters are stable [id number] Cardiac Device Interrogation, cardio physiologic monitor Procedure code (CPT) selection complete Coding Level of Care Code Procedure Only Diagnoses CPT Codes Cardiac Device Check - Cardiac Device 15: [id number] Cardiac Device Interrogation, cardio physiologic monitor ([id number])
== END ==
PROVIDERS: PCP Physician Assistant; Visit Provider Internal Medicine Cardiovascular Disease
DX: I50.20 Unspecified systolic (congestive) heart failure (principal); Z95.810 Presence of automatic (implantable) cardiac defibrillator
CPT/HCPCS: 93297

== ENCOUNTER 2022-09-22 08:54 | Outpatient (AMB) | payer MEDICARE, MEDICAID, SELFPAY ==
[2021-03-24 14:16] VITALS: BP 104/68; BP 112/72; BMI 31.3
--- NOTE | 2022-09-22 08:57 | A.OFFVIS_ITS ---
Intake Vital Signs 09/22/22 08:59 Height 5 ft 7 in Weight 218 lb 11.177 oz BMI 34.2 BP 106/74 Blood Pressure Location Lt brachial Position Sitting Pulse 88 Pulse Source Pulse Oximeter Temp 97 F Temp Source Skin Pulse Oximetry (%) 98 Oxygen Delivery Method Room Air Intake Visit Reasons: FM Intake Note: Here for fibromyalgia. Would like to consider cortisone injection today. 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: No Accompanied by: Self / Same As Patient Allergies rivaroxaban [From XARELTO] Adverse Reaction (Intermediate, Verified 09/22/22 08:58) LEG EDEMA, RASH Medication List - Last Reconciled 09/22/22 by José Luis Pinzon MD acetaminophen (Tylenol Extra Strength) 1,000 mg PO Q6H PRN apixaban (Eliquis) 5 mg PO BID 90 days artifi.tears(hypromellose)(PF) 0.3% 1 drp ophthalmic (eye) Q4-6H PRN blood pressure test kit-large As directed cetirizine 10 mg PO DAILY PRN clonazepam (Klonopin) 0.5 mg PO BEDTIME PRN 30 days furosemide 40 mg PO DAILY sacubitril-valsartan 24-26 mg (Entresto) 1 tab PO BID 90 days sotalol 120 mg (1.5 x 80 mg) PO BID triamcinolone acetonide 0.1% 1 appl topical DAILY 15 days zolpidem 5 mg PO BEDTIME PRN HPI HPI Comments History of Present Illness Details This woman with known fibromyalgia and lumbar osteoarthritis presents with complaints of bilateral shoulder pain. This is worse on the left. She had a previous injection in the shoulder that was helpful. Workup has shown glenohumeral osteoarthritis bilaterally. She remains on just Tylenol for pain. [facility] Medical History Biventricular ICD (implantable cardioverter-defibrillator) in place Encounter for monitoring sotalol therapy Graves' disease in remission Heart failure with reduced ejection fraction History of cardioversion HLD (hyperlipidemia) HTN (hypertension) Hypotension arterial Nonischemic cardiomyopathy Obesity (BMI 30-39.9) Osteoporosis screening PAF (paroxysmal atrial fibrillation) SVT (supraventricular tachycardia) Transaminitis Surgical History History of cardiac defibrillator placement History of radiofrequency ablation procedure for cardiac arrhythmia Hx of cardiac catheterization (~06/2017) Hx of tubal ligation Family History Father Stroke Hypertension Mother Hypertension Diabetes Daughter AVM (arteriovenous malformation) Son No problems noted. Sister No problems noted. Brother No problems noted. Brother No problems noted. Brother No problems noted. Brother No problems noted. Social History Household Members: Significant Other Housing: House Do you presently have visiting nurse or other home services: No Alcohol intake: never Patient Tobacco Use Status: Never used Tobacco e-Cigarette/Vaping Use: Never Used Second Hand Smoke Exposure: No service: No Current occupational status: unemployed Cognitive needs: No Hearing needs: No Vision needs: Yes Female Reproductive History Menstrual Age of Menarche: 11 Review of Systems Const Details: Negative for appetite change, weight change, fever, chills, malaise and fatigue Eyes Details: Negative for vision change, dry eyes,headaches and dizziness Skin/Breast Details: Negative for itching, rash, hives, Raynaud's symptoms, sun sensitivity, and skin cancer Endo Details: Negative for polyuria and polydypsia Sky/Lymph Details: Negative for excessive bruising or bleeding. Physical Exam Vital Signs: Last Vital Signs Temp 97 F 09/22/22 08:59 Pulse 88 09/22/22 08:59 BP 106/74 09/22/22 08:59 Pulse Ox 98 09/22/22 08:59 Oxygen Delivery Method Room Air 09/22/22 08:59 BMI result Body Mass Index 34.2 APPEARANCE: Patient in no acute distress EYES no redness, pupils equal and reactive to light, eyelids normal. No temporal artery tenderness, redness or swelling. SKIN: No inflammatory or neoplastic lesions. Normal color and turgor JOINT EXAM: ?? Cervical Spine: Full range of motion without pain; no tenderness. Thoracic Spine:? No scoliosis.? No tenderness on palpation. Some tenderness over the left chest wall where she has a pacemaker implant. Lumbar Spine: Alignment normal.? Pain with flexion and extension, tenderness to palpation of the lumbar spine and bilateral sacroiliac joints. Hands: LEFT:? Normal pain-free range of motion without tenderness, swelling, increased warmth or erythema. Able to make a full fist and has a good nail machine operator strength. ? RIGHT:? Normal pain-free range of motion.? Some tenderness reported to palpation of the 2nd MCP, no increased warmth, swelling or erythema noted.? Able to make a full fist and has good nail machine operator strength. Wrists:? Normal pain-free range of motion without tenderness, swelling, increased warmth or erythema. Elbows:. Normal pain-free range of motion without tenderness, swelling, increased warmth or erythema. Shoulders: LEFT:? Decreased range of motion and pain with flexion above 90 degrees, abduction above 90 degrees and internal rotation.? Tenderness to p alpation anteriorly and in the subacromial space. No adenopathy, swelling, increased warmth or erythema. ? RIGHT:? Mild pain with abduction 120 degrees or with extremes of rotation. Slight anterior tenderness. No weakness, swelling, increased warmth or erythema. Hips:? Full range of motion without pain. Hip bursa:.? No tenderness. Knees:?? Normal pain-free range of motion without tenderness, swelling, increased warmth or erythema.? There is no effusion or crepitation Ankles:? Normal pain-free range of motion without tenderness, swelling, increased warmth or erythema. Feet: Normal pain-free range of motion with mild 1st MTP bony enlargement without tenderness, swelling, increased warmth or erythema. Tender points: Tenderness to digital palpation at the occiput, trapezius, second rib, lateral epicondyle, knees, greater trochanter and gluteal area bilaterally. ? Office Procedures Joint Injection/Drain Joint Injection/Drain Primary Site: left shoulder Injected: 40 mg of, Kenalog, with 1 mL of and 1% plain lidocaine Coding 73559 - Large joint (With the patient's consent the left shoulder was prepped with ChloraPrep and alcohol. Under a topical ethyl chloride spray the left subacromial space was injected with 40 mg of triamcinolone and 1 cc of 1% lidocaine. The patient tolerated the procedure without any acute adverse effects.) Procedure code (CPT) selection complete Results Reviewed Results Reviewed: [address] [address] [address] Scan Report Signed Patient: Iliana Vigil MR#: [id number] : 1955 Acct:[id number] Age/Sex: 66 / F ADM Date: 02/20/[address]: Andrea Garduno MD Ordering Physician: Andrea Garduno MD Date of Service: 02/20/22 Procedure(s): CT shoulder RT wo IV con Accession Number(s): [id number] cc: Andrea Garduno MD~ EXAMINATION: CT SHOULDER WITHOUT CONTRAST, RIGHT CLINICAL INFORMATION: Impingement syndrome. Right shoulder pain.? COMPARISON: Right shoulder radiographs dated 07/10/2021. Right shoulder MRI dated 01/03/2018. TECHNIQUE: Contiguous axial CT images of the right shoulder were obtained without contrast. Sagittal and coronal reformats were provided and reviewed.? This CT examination was performed using dose optimization techniques as appropriate, variously including the following: *Automated exposure control *Adjustment of mA and/or kV according to patient size (this includes techniques or standardized protocols for targeted exams where dose is matched to indication/reason for exam; i.e. extremities or head) *Use of iterative reconstruction technique DLP: 602 mGy-cm FINDINGS: No acute fracture or dislocation. Glenohumeral joint space narrowing with small marginal osteophytes. Inferior glenohumeral chondrocalcinosis. Moderate acromioclavicular joint space narrowing with marginal osteophytes. Lateral subacromial spurring. No significant bony remodeling. No concerning lytic or blastic osseous lesion. Faint calcifications within the distal aspect of the junctional fibers consistent with mild distal supraspinatus and infraspinatus calcific tendinitis. The rotator cuff tendons are grossly intact, however, evaluation is significantly limited on CT examination. No large, full-thickness tear. No significant muscle atrophy. No large glenohumeral joint effusion. No abnormal soft tissue mass or fluid collection. No axillary lymphadenopathy. The visualized right lung is clear.? CT/CT shoulder RT wo IV con IMPRESSION: 1. No acute fracture or dislocation. ? 2. Cfso-js-tmbylten glenohumeral osteoarthritis with inferior chondrocalcinosis. ? 3. Moderate acromioclavicular osteoarthritis. Lateral subacromial spurring. ? 4. Mild distal supraspinatus and infraspinatus calcific tendinitis. No large, full-thickness rotator cuff tear, however, evaluation is significantly limited on CT examination. ? Dictated By: Endy Goss MD [address] [address] XRay Report Signed Patient: Iliana Vigil MR#: [id number] : 1955 Acct:[id number] Age/Sex: 66 / F ADM Date: 07/10/[address]: Jeremy Smith PA-C Ordering Physician: Jeremy Smith PA-C Date of Service: 07/10/21 Procedure(s): XR shoulder RT min 2V Accession Number(s): [id number] cc: Jeremy Smith PA-C~ EXAMINATION: BILATERAL SHOULDER. CLINICAL INFORMATION: Bilateral shoulder pain? COMPARISON: None? TECHNIQUE: 4 views each shoulder.? FINDINGS: RIGHT SHOULDER: The glenohumeral joint space and the AC joint spaces normal. No visible acute fracture, dislocation or subluxation seen. The soft tissues are normal. LEFT SHOULDER: There is loss of left glenohumeral and AC joints space without any visible acute fracture, dislocation or subluxation. No bony erosive changes. The soft tissues are normal. XR/XR shoulder RT min 2V IMPRESSION: Unremarkable right shoulder exam. ? Unremarkable left shoulder exam. Dictated By: Trevor Monique MD Assessment & Plan Assessment & Plan (1) Fibromyalgia: Code(s): M79.7 - Fibromyalgia (2) Osteoarthritis of glenohumeral joints, bilateral: Comment: due to rotator cuff damage Code(s): M19.011 - Primary osteoarthritis, right shoulder; M19.012 - Primary osteoarthritis, left shoulder Plan Still no signs of active inflammation. This looks like some fibromyalgia. She has some significant pain in the left shoulder with range of motion. This looks like some osteoarthritis due to rotator cuff attrition. We will try to a local injection as it helped before. We reviewed potential adverse effects of such injection. With the patient's consent the left shoulder was prepped with ChloraPrep and alcohol. Under a topical ethyl chloride spray the left subacromial space was injected with 40 mg of triamcinolone and 1 cc of 1% lidocaine. The patient tolerated the procedure without any acute adverse effects. She will rest for a few days and then begin some gentle thkxo-gb-dhthcs exercises. She can continue with her medicines as before for the fibromyalgia. If the shoulder injection is helpful for number of months we might be able to be repeat it in 4 or 5 months or later next year. Orders: Orders AMB Joint Injection/Aspiration Today M19.011 - Primary osteoarthritis, right shoulder, M19.012 - Primary osteoarthritis, left shoulder Coding Level of Care Code Est Pt Level 3 (39445) Diagnoses Fibromyalgia M79.7 Osteoarthritis of glenohumeral joints, bilateral M19.011; M19.012 CPT Codes Coding - 07176 Large joint: 10531 - Large joint ([id number])
[2022-09-22 08:59] VITALS: BP 106/74; PULSE 88; TEMP 36.1; O2SAT 98; BMI 34.2
== END 2022-09-22 09:57 | disposition home or self-care (01) ==
PROVIDERS: PCP Physician Assistant; Visit Provider Internal Medicine Rheumatology
DX: M19.012 Primary osteoarthritis, left shoulder (principal)
CPT/HCPCS: 20610; 99213

== ENCOUNTER → 2022-09-22 08:54 | Outpatient (BNVA) | payer MEDICARE, MEDICAID, SELFPAY ==
[2021-03-24 14:16] VITALS: BP 104/68; BP 112/72; BMI 31.3
== END ==
PROVIDERS: PCP Physician Assistant; Visit Provider Internal Medicine Rheumatology
DX: M19.012 Primary osteoarthritis, left shoulder (principal); M19.011 Primary osteoarthritis, right shoulder; M79.7 Fibromyalgia
CPT/HCPCS: 20610; 99212; J3301

== ENCOUNTER → 2022-10-08 23:59 | Outpatient (BNV) | payer MEDICARE, MEDICAID, SELFPAY ==
[2021-03-24 14:16] VITALS: BP 104/68; BP 112/72; BMI 31.3
--- NOTE | 2022-10-08 11:37 | MHC.OFFVIS ---
Intake Intake Visit Reasons: Remote HF Monitoring- [employer] Allergies rivaroxaban [From XARELTO] Adverse Reaction (Intermediate, Verified 09/22/22 08:58) LEG EDEMA, RASH PFSH Medical History Biventricular ICD (implantable cardioverter-defibrillator) in place Encounter for monitoring sotalol therapy Graves' disease in remission Heart failure with reduced ejection fraction History of cardioversion HLD (hyperlipidemia) HTN (hypertension) Hypotension arterial Nonischemic cardiomyopathy Obesity (BMI 30-39.9) Osteoporosis screening PAF (paroxysmal atrial fibrillation) SVT (supraventricular tachycardia) Transaminitis Surgical History History of cardiac defibrillator placement History of radiofrequency ablation procedure for cardiac arrhythmia Hx of cardiac catheterization (~06/2017) Hx of tubal ligation Family History Father Stroke Hypertension Mother Hypertension Diabetes Daughter AVM (arteriovenous malformation) Son No problems noted. Sister No problems noted. Brother No problems noted. Brother No problems noted. Brother No problems noted. Brother No problems noted. Social History Household Members: Significant Other Housing: House Do you presently have visiting nurse or other home services: No Alcohol intake: never Patient Tobacco Use Status: Never used Tobacco e-Cigarette/Vaping Use: Never Used Second Hand Smoke Exposure: No service: No Current occupational status: unemployed Cognitive needs: No Hearing needs: No Vision needs: Yes Female Reproductive History Menstrual Age of Menarche: 11 Office Procedures Cardiac Device Check Cardiac Device Check Details: Remote heart failure report generated 10/08/2022. Heart failure parameters are stable [id number] Cardiac Device Interrogation, cardio physiologic monitor Procedure code (CPT) selection complete Coding Level of Care Code Procedure Only Diagnoses CPT Codes Cardiac Device Check - Cardiac Device 15: [id number] Cardiac Device Interrogation, cardio physiologic monitor ([id number])
== END ==
PROVIDERS: PCP Physician Assistant; Visit Provider Internal Medicine Cardiovascular Disease
DX: I50.20 Unspecified systolic (congestive) heart failure (principal); Z95.810 Presence of automatic (implantable) cardiac defibrillator
CPT/HCPCS: 93297

== ENCOUNTER → 2022-10-27 10:57 | Outpatient (REF) | payer MEDICARE, MEDICAID, SELFPAY ==
[2021-03-24 14:16] VITALS: BP 104/68; BP 112/72; BMI 31.3
--- NOTE | 2022-10-27 10:59 | CA_ITS ---
Transthoracic Echocardiogram Patient (Last, First, Middle): Iliana Vigil E Gender: Female Date of : 1955 Age: 67 Procedure Date: 10/27/2022 Procedure Type: Transthoracic Echocardiogram Location: OP Height: 175.26 cm Weight: 97.98 kg BSA: 2.13 m2 Heart Rate: 70 bpm BP: 130 / 80 mmHg Genetic Coordinator: [place] Referring MD: Andres Bruno MD Symptoms: I42.8 - Other cardiomyopathies Study Quality: Adequate/Contrast ECG Rhythm: Frequent ventricular premature beats Conclusions: - The left ventricular systolic function is moderately decreased. The visually estimated ejection fraction is between 35-40%. - The basal inferior and basal inferoseptal segments are akinetic. - There is moderate mitral annular calcification. There is mild mitral valve regurgitation. Findings Procedure Information Contrast agent, definity, is being given per protocol without apparent complications. Left Ventricle Mildly increased left ventricular cavity size. There is mildly increased left ventricular wall thickness. The left ventricular systolic function is moderately decreased. The visually estimated ejection fraction is between 35 40%. There is moderate global hypokinesis. Evidence suggests grade II (moderate) diastolic dysfunction. Wall Motion Rest Echo Findings The basal inferior and basal inferoseptal segments are akinetic. Right Ventricle There is a pacemaker wire seen in the right ventricle. Atria The left atrium is mildly dilated. The right atrium is normal in size. Aortic Valve The aortic valve was not well visualized. There is no aortic valve stenosis. There is no aortic valve regurgitation. Mitral Valve There is mild anterior mitral leaflet thickening. There is moderate mitral annular calcification. There is mild mitral valve regurgitation. There is no mitral valve stenosis. Pulmonic Valve The pulmonic valve is likely normal. Tricuspid Valve Normal tricuspid valve structure. There is trace tricuspid valve regurgitation. There is no evidence of pulmonary hypertension. Great Vessels The asc aorta is normal in size. Venous The inferior vena cava is normal in size and collapses greater than 50% with inspiration. Pericardium/Pleural There is a trivial pericardial effusion. Prior Study Comparison No significant change compared to prior study dated: 08/27/2021. Measurements 2D Linear Measurements IVSd: 1.10 0.6-0.9/0.6-1.0 cm LVIDd: 5.90 3.9-5.3/4.2-5.9 cm LVIDd Index: 2.77 2.4-3.2/2.2-3.1 cm/m2 LVIDs: 4.80 2.0-3.6 cm LVPWd: 1.30 0.7-1.1 cm LA Diam: 4.60 2.7-3.8/3.0-4.0 cm LAIDs Index: 2.16 1.5-2.3 cm/m2 LV Mass: 381.06 67-162/88-224 g LV Mass Index: 178.90 43-95/49-115 g/m2 LVOT Diam: 2.10 3.0+(-)1.3 cm 2D Systolic Function EF 4C: 47.00 >55% EF 2C: 45.40 >55% EF BiP: 46.30 >55% Mitral Valve MV VTI: 0.37 MV Pk Abel: 1.38 MV Mn Abel: 0.92 MV Pk Grad: 8.00 MV Mn Grad: 4.00 MV Pk E: 1.14 MV PK A: 0.87 MV Decel Time: 238.00 E/A: 1.30 E'Lateral: 4.91 E'Medial: 5.26 E/E' Med: 21.70 E/E' Lat: 23.20 PHT: 70.00 MVA PHT: 3.14 MVA Continuity: 2.07 Decel [place]: 4.81 Aortic Valve AoV Pk Abel: 1.65 AoV Mn Abel: 1.20 AoV VTI: 0.31 AoV Pk Grad: 11.00 Aov Mn Grad: 6.00 YADY Cont.VTI: 2.47 LVOT LVOT Pk Abel: 1.12 LVOT Mn Abel: 0.76 LVOT VTI: 0.22 LVOT Pk Grad: 5.00 LVOT Mn Grad: 3.00 LVOT Diam: 2.10 LVOT Area: 3.46 Diastolic Function MV Pk E: 1.14 MV Pk A: 0.87 E/A: 1.30 E'Medial: 5.26 E/E' Med: 21.70 E' Laterial: 4.91 E/E' Lat: 23.20 Right Ventricle TAPSE (mm): 29.50 TVS' Abel: 9.73 Tricuspid Valve TR Pk Abel: 2.33 TR Pk Grad: 22.00 RA Press: 3.00 RVSP: 25.00 Great Vessels Aorta Sinus of Valsalva: 3.60 2.0-3.5 cm Ao Asc: 3.50 2.1-3.4 cm Updated in Other Vendor System with Status of Final Doug Rosales MD electronically signed on 10/28/2022 10:13:33 AM with status of Final
== END ==
LOC: HO.CARD 10:57
PROVIDERS: PCP Physician Assistant; Visit Provider Internal Medicine Cardiovascular Disease
DX: I42.8 Other cardiomyopathies (principal)
CPT/HCPCS: 93306; Q9957

== ENCOUNTER → 2022-10-27 10:59 | Outpatient (BNV) | payer MEDICARE, MEDICAID, SELFPAY ==
[2021-03-24 14:16] VITALS: BP 104/68; BP 112/72; BMI 31.3
== END ==
PROVIDERS: PCP Physician Assistant; Visit Provider Internal Medicine
DX: I34.0 Nonrheumatic mitral (valve) insufficiency (principal); I34.81 Nonrheumatic mitral (valve) annulus calcification
CPT/HCPCS: 93306

== ENCOUNTER → 2022-11-12 23:59 | Outpatient (BNV) | payer MEDICARE, MEDICAID, SELFPAY ==
[2022-10-30 14:04] VITALS: BP 104/68; BP 112/72; BMI 31.3
--- NOTE | 2022-11-30 09:03 | MHC.OFFVIS ---
Intake Intake Visit Reasons: Remote HF Monitoring- Medtronic Allergies rivaroxaban [From XARELTO] Adverse Reaction (Intermediate, Verified 11/23/22 10:45) LEG EDEMA, RASH PFSH Medical History Encounter for monitoring sotalol therapy Hypotension arterial Osteoporosis screening Transaminitis Heart failure with reduced ejection fraction Biventricular ICD (implantable cardioverter-defibrillator) in place Nonischemic cardiomyopathy SVT (supraventricular tachycardia) PAF (paroxysmal atrial fibrillation) HLD (hyperlipidemia) HTN (hypertension) History of cardioversion Obesity (BMI 30-39.9) Graves' disease in remission Surgical History History of radiofrequency ablation procedure for cardiac arrhythmia History of cardiac defibrillator placement Hx of cardiac catheterization (~06/2017) Hx of tubal ligation Family History Father Stroke Hypertension Mother Hypertension Diabetes Daughter AVM (arteriovenous malformation) Son No problems noted. Sister No problems noted. Brother No problems noted. Brother No problems noted. Brother No problems noted. Brother No problems noted. Social History Household Members: Significant Other Housing: House Do you presently have visiting nurse or other home services: No Alcohol intake: never Patient Tobacco Use Status: Never used Tobacco e-Cigarette/Vaping Use: Never Used Second Hand Smoke Exposure: No service: No Current occupational status: unemployed Cognitive needs: No Hearing needs: No Vision needs: Yes Female Reproductive History Menstrual Age of Menarche: 11 Office Procedures Cardiac Device Check Cardiac Device Check Details: Remote heart failure report generated 11/12/2022. Heart failure parameters are stable [id number] Cardiac Device Interrogation, cardio physiologic monitor Procedure code (CPT) selection complete Coding Level of Care Code Procedure Only CPT Codes Cardiac Device Check - Cardiac Device 15: [id number] Cardiac Device Interrogation, cardio physiologic monitor ([id number])
== END ==
PROVIDERS: PCP Physician Assistant; Visit Provider Internal Medicine Cardiovascular Disease
DX: I50.20 Unspecified systolic (congestive) heart failure (principal); Z95.810 Presence of automatic (implantable) cardiac defibrillator
CPT/HCPCS: 93297

== ENCOUNTER 2022-11-16 10:42 | Outpatient (REF) | payer MEDICARE, MEDICAID, SELFPAY ==
[2022-10-30 14:04] VITALS: BP 104/68; BP 112/72; BMI 31.3
== END 2022-11-16 10:43 | disposition home or self-care (01) ==
LOC: HO.US 10:42
PROVIDERS: PCP Physician Assistant; Visit Provider Nurse Practitioner Family
DX: N20.0 Calculus of kidney (principal)
CPT/HCPCS: 76775

== ENCOUNTER 2022-11-23 10:12 | Outpatient (AMB) | payer MEDICARE, MEDICAID, SELFPAY ==
[2022-10-30 14:04] VITALS: BP 104/68; BP 112/72; BMI 31.3
--- NOTE | 2022-11-23 10:19 | MHC.OFFVIS ---
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 Accompanied by: Self / Same As Patient Allergies rivaroxaban [From XARELTO] Adverse Reaction (Intermediate, Verified 11/23/22 10:45) LEG EDEMA, RASH Medication List - Last Reconciled 11/23/22 by YOLANDA Vallejo- acetaminophen (Tylenol Extra Strength) 1,000 mg PO Q6H PRN apixaban (Eliquis) 5 mg PO BID 90 days artifi.tears(hypromellose)(PF) 0.3% 1 drp ophthalmic (eye) Q4-6H PRN blood pressure test kit-large As directed cetirizine 10 mg PO DAILY PRN clonazepam (Klonopin) 0.5 mg PO BEDTIME PRN 30 days furosemide 40 mg PO DAILY sacubitril-valsartan 24-26 mg (Entresto) 1 tab PO BID 90 days sotalol 120 mg (1.5 x 80 mg) PO BID triamcinolone acetonide 0.1% 1 appl topical DAILY 15 days zolpidem 5 mg PO BEDTIME PRN HPI HPI Comments History of Present Illness Details Iliana is a pleasant 67 year old female patient of Dr. Smith. She has a past medical history of heart failure with reduced ejection fracture, biventricular ICD in place, nonischemic cardiomyopathy, SVT, paroxysmal AFib, hyperlipidemia, hypertension, and Graves disease in remission. She presents to the office today for a follow up of her nephrolithiasis. Recent renal imaging results reviewed with the patient today. Right kidney with 0.5 cm lower pole echogenic foci. 0.4 cm lower pole and 0.4 cm mid pole calculus. No hydronephrosis noted. Left kidney with 0.4 cm upper pole and 0.5 cm mid pole calculi. No hydronephrosis noted. When asked patient reports to be doing and feeling well. She reports to be drinking plenty of water daily. She discusses at length awaiting for dermatology appointment for her psoriais she has been experiencing in her scalp. In office urinalysis results reviewed with the patient today. She currently denies any bothersome urinary issues or concerns. She denies urinary urgency, urinary frequency, incontinence, nocturia, hematuria, dysuria, foul smelling urine, changes to urinary stream, flank pain, fever, and or chills. She is happy with her current voiding parameters. Will continue with surveillance monitoring. She otherwise offers no other issues or concerns at this time. [facility] Medical History (Reviewed 11/23/22 @ 10:45 by XAVIER VallejoFORMERLY [facility] Encounter for monitoring sotalol therapy Hypotension arterial Osteoporosis screening Transaminitis Heart failure with reduced ejection fraction Biventricular ICD (implantable cardioverter-defibrillator) in place Nonischemic cardiomyopathy SVT (supraventricular tachycardia) PAF (paroxysmal atrial fibrillation) HLD (hyperlipidemia) HTN (hypertension) History of cardioversion Obesity (BMI 30-39.9) Graves' disease in remission Surgical History History of radiofrequency ablation procedure for cardiac arrhythmia History of cardiac defibrillator placement Hx of cardiac catheterization (~06/2017) Hx of tubal ligation Family History Father Stroke Hypertension Mother Hypertension Diabetes Daughter AVM (arteriovenous malformation) Son No problems noted. Sister No problems noted. Brother No problems noted. Brother No problems noted. Brother No problems noted. Brother No problems noted. Social History Household Members: Significant Other Housing: House Do you presently have visiting nurse or other home services: No Alcohol intake: never Patient Tobacco Use Status: Never used Tobacco e-Cigarette/Vaping Use: Never Used Second Hand Smoke Exposure: No service: No Current occupational status: unemployed Cognitive needs: No Hearing needs: No Vision needs: Yes Female Reproductive History Menstrual Age of Menarche: 11 Review of Systems Const Reports as per HPI Eyes Reports no additional complaints ENT Reports no additional complaints Card Reports as per HPI Resp Reports no additional complaints GI Reports no additional complaints Reports as per HPI Musc Reports no additional complaints Psych Reports no additional complaints Endo Reports as per HPI Sky/Lymph Reports no additional complaints Aller/Immun Reports no additional complaints Physical Exam Const General: cooperative, healthy appearing, comfortable, no acute distress, well developed, alert and awake Orientation/consciousness: patient oriented x3 Limitations: no limitations HEENT Head: Yes normal to inspection, Yes normocephalic and Yes atraumatic Ears: hearing grossly normal bilaterally Eyes General: appearance normal, both eyes and all related structures Neck Neck: Yes normal visual inspection and Yes trachea midline Chest Chest palpation & inspection: normal inspection of the chest Resp Effort & Inspection: normal respiratory effort and able to speak in complete sentences Cardio Rate: regular rate GI Inspection: Yes normal to inspection General: Yes no CVA tenderness Back/Spine/Pelvis Back: no CVA tenderness Skin General skin exam: no rashes or lesions noted Neuro General: patient oriented x3 Extrem General: Yes normal to inspection Psych Appearance: grossly normal and well kempt Mental Status: mental status grossly normal Speech and movement: Normal speech and movement present and Clear speech present Affect: normal affect Attitude: cooperative Thought process: Normal thought process present Thought content: Normal thought content present Insight: Good insight present (Psych) Judgement: Good judgement present (Psych) Results AMB Urinalysis, Automated UA Leukoctes 0 Renee/uL Last Edit by Hungrio on 11/23/22 10:32 UA Nitrite Negative Last Edit by Hungrio on 11/23/22 10:32 UA Urobilinogen 0.2 mg/dL Last Edit by Hungrio on 11/23/22 10:32 UA Protein 0 mg/dL Last Edit by Hungrio on 11/23/22 10:32 UA pH 6.5 Last Edit by Hungrio on 11/23/22 10:32 UA Blood 10 García/uL Last Edit by Hungrio on 11/23/22 10:32 UA Specific [place] 1.010 Last Edit by Hungrio on 11/23/22 10:32 UA Ketone Negative Last Edit by Hungrio on 11/23/22 10:32 UA Bilirubin 0 mg/dL Last Edit by Hungrio on 11/23/22 10:32 UA Glucose 0 mg/dL Last Edit by Hungrio on 11/23/22 10:32 Results Reviewed Results Reviewed: Laboratory Last Values Urine pH (Auto) 6.5 11/23/22 10:23 Specific [place] (Auto) 1.010 11/23/22 10:23 Urine Protein (Auto) 0 mg/dL 11/23/22 10:23 Glucose (UA)(Auto) 0 mg/dL 11/23/22 10:23 Urine Ketones (Auto) Negative 11/23/22 10: Urine Blood (Auto) 10 García/uL 11/23/22 10:23 Urine Nitrite (Auto) Negative 11/23/22 10:23 Urine Bilirubin (Auto) 0 mg/dL 11/23/22 10:23 Urine Urobilinogen (Auto) 0.2 mg/dL 11/23/22 10:23 Leukocyte Esterase (Auto) 0 Renee/uL 11/23/22 10:23 Date of Service: 11/16/22 EXAMINATION: US RETROPERITONEAL LIMITED (RENAL ONLY) FINDINGS: RIGHT KIDNEY: 12.1 x 4.1 x 5.5 cm (SAG x AP x TRV). 1.2 x 0.3 x 0.5 cm lower pole echogenic foci characteristic of calculi. 0.4 cm lower pole 0.4 cm midpole calculus versus. No hydronephrosis LEFT KIDNEY: 12.0 x 4.8 x 5.5 cm (SAG x AP x TRV). 0.4 cm upper pole and 0.5 cm midpole calculi. No hydronephrosis. IMPRESSION: Bilateral nephrolithiasis. No hydronephrosis. Assessment & Plan Assessment & Plan (1) Bilateral renal stones: Code(s): N20.0 - Calculus of kidney Plan In office urinalysis results reviewed with the patient today; as noted above. Recent renal imaging results reviewed with the patient today; as noted above. Patient denies any bothersome urinary issues or concerns at this time. Continue vitamin B6 as discussed and prescribed; refill provided Continue adding 1 oz of lemon juice to water daily. Continue drinking plenty of water daily. Renal ultrasound in 6 months; will continue with surveillance monitoring Follow-up in 6 months with imaging to be completed prior; or sooner with any issues, concerns, or questions. Orders: Orders US renal BI 6 Months N20.0 - Calculus of kidney AMB Urinalysis Automated Today Z13.9 - Encounter for screening, unspecified Medications: New pyridoxine (vitamin B6) 100 mg PO DAILY 90 days 90 tabs 3RF Patient Instructions: The patient had an opportunity to ask questions regarding the treatment plan. All questions were answered. Physical exam, labs, and imaging were discussed and reviewed in detail. As well as risks, benefits, and discussion of treatment choices. No major barriers to understanding were identified. The patient expressed understanding and agreement with the above treatment plan. The patient was made aware they should contact our office by phone for worsening of their current condition, the appearance of new symptoms, or with any questions or concerns. Compliance is encouraged with any medications and follow up testing that is ordered. It is a privilege to be allowed the opportunity to participate in? your urological care.? Again, if you have any questions or concerns If you have any questions or concerns please do not hesitate to contact me. The office is [phone]. This note is constructed using voice recognition software. While every effort has been made to ensure accuracy java integration developer errors may have been included. Yours sincerely, ROSINA Vallejo Coding Level of Care Code Est Pt Level 3 (43708) Diagnoses Bilateral renal stones N20.0
== END 2022-11-23 10:58 | disposition home or self-care (01) ==
PROVIDERS: PCP Physician Assistant; Visit Provider Nurse Practitioner Family
DX: Z13.9 Encounter for screening, unspecified (principal); N20.0 Calculus of kidney
CPT/HCPCS: 99213

== ENCOUNTER → 2022-11-23 10:12 | Outpatient (BNVA) | payer MEDICARE, MEDICAID, SELFPAY ==
[2022-10-30 14:04] VITALS: BP 104/68; BP 112/72; BMI 31.3
== END ==
PROVIDERS: Visit Provider Nurse Practitioner Family
DX: N20.0 Calculus of kidney (principal)
CPT/HCPCS: 81003; 99212

== ENCOUNTER 2022-12-17 08:03 | Outpatient (REF) | payer MEDICARE, MEDICAID, SELFPAY ==
[2022-10-30 14:04] VITALS: BP 104/68; BP 112/72; BMI 31.3
[2022-12-17 11:01] LABS: Hemoglobin 12.7 g/dl (12.0-16.0); Mean Corpuscular HGB Conc 32.6 g/dl (31.0-35.0); Mean Corpuscular Hemoglobin 28.9 pg (27.0-33.0); Mean Corpuscular Volume 88.8 fL (80.0-98.0); Mean Platelet Volume 10.6 fL (9.4-12.3); Platelet Count 231 X10*3/uL (160-400); Red Blood Count 4.39 X10*6/uL (4.20-5.50); Red Cell Distribution Width 13.7 % (11.0-16.0); White Blood Count 6.6 X10*3/uL (4.8-10.8)
[2022-12-17 11:26] LABS: Alanine Aminotransferase 14 U/L (0-31); Albumin Level 4.1 g/dL (3.5-5.0); Alkaline Phosphatase 85 U/L (39-117); Anion Gap 9 (12-20); Aspartate Amino Transferase 17 U/L (5-31); Bilirubin Total 0.7 mg/dL (0.0-1.0); Blood Urea Nitrogen 14 mg/dL (9-16); Calcium 9.2 mg/dL (8.4-10.2); Carbon Dioxide 31 mmol/L (22-29); Chloride 108 mmol/L (96-108); Cholesterol 200 mg/dL (<200); Estimated Glomerular Filt Rate > 60; Glucose Fasting 109 mg/dL (60-99); HDL Cholesterol 48 mg/dL (>40); LDL Cholesterol Calculated 128 mg/dL (<100); Potassium 4.2 mmol/L (3.3-5.1); Sodium 144 mmol/L (135-145); Total Protein 7.1 g/dL (6.5-8.0); Triglycerides 120 mg/dL (<150)
[2022-12-17 11:47] LABS: TSH reflex Free T4 1.59 uIU/mL (0.32-4.0)
== END 2022-12-17 08:04 | disposition home or self-care (01) ==
LOC: HO.10HDL 08:03
PROVIDERS: Visit Provider Physician Assistant
DX: I50.20 Unspecified systolic (congestive) heart failure (principal); I48.0 Paroxysmal atrial fibrillation
CPT/HCPCS: 36415; 80053; 80061; 84443; 85027

== ENCOUNTER → 2022-12-17 23:59 | Outpatient (BNV) | payer MEDICARE, MEDICAID, SELFPAY ==
[2022-10-30 14:04] VITALS: BP 104/68; BP 112/72; BMI 31.3
--- NOTE | 2022-12-18 15:57 | MHC.OFFVIS ---
Intake Intake Visit Reasons: Remote ICD Check- Medtronic Allergies rivaroxaban [From XARELTO] Adverse Reaction (Intermediate, Verified 11/23/22 10:45) LEG EDEMA, RASH PFSH Medical History Encounter for monitoring sotalol therapy Hypotension arterial Osteoporosis screening Transaminitis Heart failure with reduced ejection fraction Biventricular ICD (implantable cardioverter-defibrillator) in place Nonischemic cardiomyopathy SVT (supraventricular tachycardia) PAF (paroxysmal atrial fibrillation) HLD (hyperlipidemia) HTN (hypertension) History of cardioversion Obesity (BMI 30-39.9) Graves' disease in remission Surgical History History of radiofrequency ablation procedure for cardiac arrhythmia History of cardiac defibrillator placement Hx of cardiac catheterization (~06/2017) Hx of tubal ligation Family History Father Stroke Hypertension Mother Hypertension Diabetes Daughter AVM (arteriovenous malformation) Son No problems noted. Sister No problems noted. Brother No problems noted. Brother No problems noted. Brother No problems noted. Brother No problems noted. Social History Household Members: Significant Other Housing: House Do you presently have visiting nurse or other home services: No Alcohol intake: never Patient Tobacco Use Status: Never used Tobacco e-Cigarette/Vaping Use: Never Used Second Hand Smoke Exposure: No service: No Current occupational status: unemployed Cognitive needs: No Hearing needs: No Vision needs: Yes Female Reproductive History Menstrual Age of Menarche: 11 Office Procedures Cardiac Device Check Cardiac Device Check Details: Remote ICD report generated 12/17/2022. ICD function is adequate. Bi V pacing 94% of the time [id number] Cardiac Interrogation, implant defibrillator w/interim Procedure code (CPT) selection complete Coding Level of Care Code Procedure Only CPT Codes Cardiac Device Check - Cardiac Device 13: [id number] Cardiac Interrogation, implant defibrillator w/interim ([id number])
== END ==
PROVIDERS: PCP Physician Assistant; Visit Provider Internal Medicine Cardiovascular Disease
DX: I42.9 Cardiomyopathy, unspecified (principal); Z95.810 Presence of automatic (implantable) cardiac defibrillator
CPT/HCPCS: 93295

== ENCOUNTER → 2022-12-17 23:59 | Outpatient (BNV) | payer MEDICARE, MEDICAID, SELFPAY ==
[2022-10-30 14:04] VITALS: BP 104/68; BP 112/72; BMI 31.3
--- NOTE | 2022-12-18 15:58 | A.OFFVIS_ITS ---
Intake Intake Visit Reasons: Remote HF Monitoring- Medtronic Allergies rivaroxaban [From XARELTO] Adverse Reaction (Intermediate, Verified 11/23/22 10:45) LEG EDEMA, RASH PFSH Medical History Encounter for monitoring sotalol therapy Hypotension arterial Osteoporosis screening Transaminitis Heart failure with reduced ejection fraction Biventricular ICD (implantable cardioverter-defibrillator) in place Nonischemic cardiomyopathy SVT (supraventricular tachycardia) PAF (paroxysmal atrial fibrillation) HLD (hyperlipidemia) HTN (hypertension) History of cardioversion Obesity (BMI 30-39.9) Graves' disease in remission Surgical History History of radiofrequency ablation procedure for cardiac arrhythmia History of cardiac defibrillator placement Hx of cardiac catheterization (~06/2017) Hx of tubal ligation Family History Father Stroke Hypertension Mother Hypertension Diabetes Daughter AVM (arteriovenous malformation) Son No problems noted. Sister No problems noted. Brother No problems noted. Brother No problems noted. Brother No problems noted. Brother No problems noted. Social History Household Members: Significant Other Housing: House Do you presently have visiting nurse or other home services: No Alcohol intake: never Patient Tobacco Use Status: Never used Tobacco e-Cigarette/Vaping Use: Never Used Second Hand Smoke Exposure: No service: No Current occupational status: unemployed Cognitive needs: No Hearing needs: No Vision needs: Yes Female Reproductive History Menstrual Age of Menarche: 11 Office Procedures Cardiac Device Check Cardiac Device Check Details: Remote heart failure report generated 12/17/2022. Heart failure parameters are within normal limits [id number] Cardiac Device Interrogation, cardio physiologic monitor Procedure code (CPT) selection complete Coding Level of Care Code Procedure Only CPT Codes Cardiac Device Check - Cardiac Device 15: [id number] Cardiac Device Inte rrogation, cardio physiologic monitor ([id number])
== END ==
PROVIDERS: PCP Physician Assistant; Visit Provider Internal Medicine Cardiovascular Disease
DX: I50.20 Unspecified systolic (congestive) heart failure (principal); Z95.810 Presence of automatic (implantable) cardiac defibrillator
CPT/HCPCS: 93297

== ENCOUNTER 2022-12-21 12:36 | Outpatient (AMB) | payer MEDICARE, MEDICAID, SELFPAY ==
[2022-10-30 14:04] VITALS: BP 104/68; BP 112/72; BMI 31.3
[2022-12-21 12:57] VITALS: BP 114/72; PULSE 77; BMI 33.8
--- NOTE | 2022-12-21 12:57 | MHC.OFFVIS ---
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 Allergies rivaroxaban [From XARELTO] Adverse Reaction (Intermediate, Verified 12/21/22 13:01) LEG EDEMA, RASH Medication List - Last Reconciled 12/21/22 by Nadege Dorantes [employer]-C acetaminophen (Tylenol Extra Strength) 1,000 mg PO Q6H PRN apixaban (Eliquis) 5 mg PO BID 90 days artifi.tears(hypromellose)(PF) 0.3% 1 drp ophthalmic (eye) Q4-6H PRN blood pressure test kit-large As directed cetirizine 10 mg PO DAILY PRN clonazepam (Klonopin) 0.5 mg PO BEDTIME PRN 30 days furosemide 40 mg PO DAILY pyridoxine (vitamin B6) 100 mg PO DAILY 90 days sacubitril-valsartan 24-26 mg (Entresto) 1 tab PO BID 90 days sotalol 120 mg (1.5 x 80 mg) PO BID 30 days triamcinolone acetonide 0.1% 1 appl topical DAILY 15 days zolpidem 5 mg PO BEDTIME PRN HPI follow-up medtronic and 6 month HPI Details Iliana is a 67-year-old female past medical history of hypertension, hyperlipidemia, nonischemic cardiomyopathy, Bi V ICD, SVT, atrial fibrillation currently suppressed with sotalol who presents for follow-up. Today she reports she has been feeling generally well. She has no concerning symptoms. She denies chest discomfort at rest or with activity, no shortness of breath, palpitations, presyncope, syncope, PND, orthopnea or edema. She reports good activity tolerance. She does only light physical activity. Taking all meds as directed. [facility] Medical History Encounter for monitoring sotalol therapy Hypotension arterial Osteoporosis screening Transaminitis Heart failure with reduced ejection fraction Biventricular ICD (implantable cardioverter-defibrillator) in place Nonischemic cardiomyopathy SVT (supraventricular tachycardia) PAF (paroxysmal atrial fibrillation) HLD (hyperlipidemia) HTN (hypertension) History of cardioversion Obesity (BMI 30-39.9) Graves' disease in remission Surgical History History of radiofrequency ablation procedure for cardiac arrhythmia History of cardiac defibrillator placement Hx of cardiac catheterization (~06/2017) Hx of tubal ligation Family History Father Stroke Hypertension Mother Hypertension Diabetes Daughter AVM (arteriovenous malformation) Son No problems noted. Sister No problems noted. Brother No problems noted. Brother No problems noted. Brother No problems noted. Brother No problems noted. Social History Household Members: Significant Other Housing: House Do you presently have visiting nurse or other home services: No Alcohol intake: never Patient Tobacco Use Status: Never used Tobacco e-Cigarette/Vaping Use: Never Used Second Hand Smoke Exposure: No service: No Current occupational status: unemployed Cognitive needs: No Hearing needs: No Vision needs: Yes Female Reproductive History Menstrual Age of Menarche: 11 Review of Systems Const All systems reviewed & are unremarkable except as noted in HPI and below ENT Denies dizziness Card Denies chest pain, Denies chest pain at rest, Denies chest pain with activity, Denies rapid heart rate, Denies pedal edema, Denies edema, Denies leg edema, Denies lightheadedness, Denies palpitations, Denies dyspnea, Denies dyspnea on exertion and Denies orthopnea Resp Denies cough, Denies dyspnea and Denies dyspnea on exertion GI Denies hematochezia and Denies change in stool character Musc Denies abnormal gait, Denies limited range of motion, Denies muscle cramps, Denies muscle weakness, Denies numbness, Denies radiating pain into limb, Denies stiffness and Denies tingling Neuro Denies abnormal gait, Denies dizziness, Denies numbness and Denies tingling Endo Denies palpitations Physical Exam Vital Signs: Last Vital Signs Pulse 77 12/21/22 12:57 BP 114/72 12/21/22 12:57 BMI result Body Mass Index 33.8 Const General: cooperative, healthy appearing, comfortable and no acute distress Orientation/consciousness: patient oriented x3 Neck Neck: Yes normal visual inspection and Yes no JVD Carotids: normal carotid upstroke Chest Chest palpation & inspection: normal inspection of the chest Resp Effort & Inspection: normal respiratory effort Auscultation: clear to auscultation bilaterally, no crackles, no rales, no rhonchi and no wheezes Cardio Jugular venous distension: no JVD Rate: regular rate Rhythm: regular rhythm Heart sounds: S1 normal heart sound present, S2 normal heart sound present, no murmurs and no rubs Neuro General: patient oriented x3 Extrem General: Yes normal to inspection, No no pedal edema and No calf tenderness Psych Appearance: grossly normal Mental Status: mental status grossly normal Speech and movement: Normal speech and movement present Office Procedures Cardiac Device Check Cardiac Device Check Details: Today Medtronic Bi V ICD interrogation, battery 3.6 years, DDD are mode, V pacing 94.9%, Bi V effective pacing 93.5%, frequent PVCs, are a, RV and LV threshold all normal range, wave let template updated. [id number] Cardiac Device Check, multi lead pacemaker Procedure code (CPT) selection complete EKG Details: Today, read by me, sinus rhythm with PVCs, left axis deviation, inferior Q-waves, JT index 110, rate 79. [id number], Complete Assessment & Plan Assessment & Plan (1) PAF (paroxysmal atrial fibrillation): Code(s): I48.0 - Paroxysmal atrial fibrillation Plan: History of atrial fibrillation, currently suppressed with sotalol 120 mg b.i.d.. EKG done today showing sinus rhythm with occasional PVC, left axis deviation, inferior and anterior lateral infarcts, JT index 110, rate 79. She has not felt any recent heart palpitations that are concerning for AFib. Pulse is very regular on exam. She is on Eliquis for anticoagulation. No bleeding issues reported. Labs done 12/17/2022 showed creatinine 0.77. (2) Nonischemic cardiomyopathy: Code(s): I42.8 - Other cardiomyopathies Plan: History of nonischemic cardiomyopathy. Last echo 10/27/2022 shows EF 35-40%, basal inferior and basal inferior septal akinetic, mild MR, no change since 08/2021. She has no clinical signs of heart failure on examination. She is on Entresto for neurohormonal modulation. Labs from 12/17/22 shows potassium 4.2, creatinine 0.77. Blood pressure well controlled at 114/72. Signs and symptoms of heart failure reviewed with her. (3) HTN (hypertension): Code(s): I10 - Essential (primary) hypertension Qualifiers: Hypertension type: essential hypertension Qualified Code(s): I10 - Essential (primary) hypertension Plan: Well controlled at present. No med changes made (4) Biventricular ICD (implantable cardioverter-defibrillator) in place: Code(s): Z95.810 - Presence of automatic (implantable) cardiac defibrillator Plan: Medtronic Bi V ICD in place. Interrogation done today shows device is functioning normally. Battery 3.6 years. Remote monitoring in use. Cardiology follow-up with device check in 6 months, sooner if needed Coding Level of Care Code Est Pt Level 4 (28366) Diagnoses PAF (paroxysmal atrial fibrillation) I48.0 Nonischemic cardiomyopathy I42.8 Essential hypertension I10 Hypertension type: essential hypertension Biventricular ICD (implantable cardioverter-defibrillator) in place Z95.810 CPT Codes Cardiac Device Check - Cardiac Device 3: [id number] Cardiac Device Check, multi lead pacemaker ([id number]) EKG - CPT: 07931-[id number], Complete ([id number]) Time Spent (min) 26
== END 2022-12-21 13:33 | disposition home or self-care (01) ==
LOC: HO.HCS 12:36
PROVIDERS: PCP Physician Assistant; Visit Provider Nurse Practitioner Family
DX: I48.0 Paroxysmal atrial fibrillation (principal); I42.8 Other cardiomyopathies; I10 Essential (primary) hypertension; Z95.810 Presence of automatic (implantable) cardiac defibrillator
CPT/HCPCS: 93281; 99214

== ENCOUNTER → 2022-12-21 12:36 | Outpatient (BNVA) | payer MEDICARE, MEDICAID, SELFPAY ==
[2022-10-30 14:04] VITALS: BP 104/68; BP 112/72; BMI 31.3
== END ==
PROVIDERS: PCP Physician Assistant; Visit Provider Nurse Practitioner Family
DX: Z45.02 Encounter for adjustment and management of automatic implantable cardiac defibrillator (principal); I48.0 Paroxysmal atrial fibrillation; I42.8 Other cardiomyopathies; I10 Essential (primary) hypertension
CPT/HCPCS: 93005; 99212

== ENCOUNTER 2022-12-22 10:20 | Outpatient (AMB) | payer MEDICARE, MEDICAID, SELFPAY ==
[2022-10-30 14:04] VITALS: BP 104/68; BP 112/72; BMI 31.3
--- NOTE | 2022-12-22 10:23 | A.OFFPC_ITS ---
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: No Accompanied by: Self / Same As Patient Allergies rivaroxaban [From XARELTO] Adverse Reaction (Intermediate, Verified 12/22/22 10:56) LEG EDEMA, RASH Medication List - Last Reconciled 12/22/22 by Jeremy Smith PA-C acetaminophen (Tylenol Extra Strength) 1,000 mg PO Q6H PRN apixaban (Eliquis) 5 mg PO BID 90 days artifi.tears(hypromellose)(PF) 0.3% 1 drp ophthalmic (eye) Q4-6H PRN blood pressure test kit-large As directed cetirizine 10 mg PO DAILY PRN clonazepam (Klonopin) 0.5 mg PO BEDTIME PRN 30 days furosemide 40 mg PO DAILY mometasone 0.1% topical pyridoxine (vitamin B6) 100 mg PO DAILY 90 days sacubitril-valsartan 24-26 mg (Entresto) 1 tab PO BID 90 days sotalol 120 mg (1.5 x 80 mg) PO BID 30 days zolpidem 5 mg PO BEDTIME PRN Tobacco use date assessed: 06/15/22 Fall risk assessment: No Falls in past year Last assessed Fall Risk: 12/22/22 Dental Screening Dental Screen Date: 12/22/22 Did you have a dental visit in the last 12 months?: Yes Did you have a dental problem in the last 6 months where you did not have access to dental care?: No Was dental information given to patient?: Patient has dentist HPI 6 month f/u HPI Details Patient is a 67-year-old female here today for a follow-up visit..? Patient has a past medical history significant for paroxysmal AFib, congestive heart failure with reduced ejection fraction, implantable defibrillator, SVT, hypertension, fibromyalgia, ? Anxiety Graves disease, obesity. Concern-> scalp dermatitis, has follow-up with door attendant the prescribe patient topical steroid solution which has been helpful. Continues on such is in p-AFIB/ presence of implanted defibrillator : Patient is followed by Cardiology and has been euvolemic and without any further shortness of breath.? Did have cardio ablation in 2019. recently changed her pradaxa to eliquis 5 mg BID. Her defibrillator regularly gets checked by her doctor of radiology. .. Congestive heart failure with reduced ejection fraction: Has not had any exacerbations recently. Continues to follow cardiology. Noted most recent liver enzymes slightly elevated in April of 2022, will recheck at earliest convenience per .. ?anxiety:? SHe reports she found a registered health nurse in [facility]. Still suffers with anxiety though has been managed well with p.r.n. use clonazepam and talking to her therapist. Laboratory Tests 12/17/22 08:10 RBC 4.39 Creatinine 0.77 Fasting Glucose 109 H Cholesterol 200 H LDL Cholesterol, C alc 128 H PFSH Medical History Encounter for monitoring sotalol therapy Hypotension arterial Osteoporosis screening Transaminitis Heart failure with reduced ejection fraction Biventricular ICD (implantable cardioverter-defibrillator) in place Nonischemic cardiomyopathy SVT (supraventricular tachycardia) PAF (paroxysmal atrial fibrillation) HLD (hyperlipidemia) HTN (hypertension) History of cardioversion Obesity (BMI 30-39.9) Graves' disease in remission Surgical History History of radiofrequency ablation procedure for cardiac arrhythmia History of cardiac defibrillator placement Hx of cardiac catheterization (~06/2017) Hx of tubal ligation Family History Father Stroke Hypertension Mother Hypertension Diabetes Daughter AVM (arteriovenous malformation) Son No problems noted. Sister No problems noted. Brother No problems noted. Brother No problems noted. Brother No problems noted. Brother No problems noted. Social History Household Members: Significant Other Housing: House Do you presently have visiting nurse or other home services: No Alcohol intake: never Patient Tobacco Use Status: Never used Tobacco e-Cigarette/Vaping Use: Never Used Second Hand Smoke Exposure: No service: No Current occupational status: unemployed Cognitive needs: No Hearing needs: No Vision needs: Yes Female Reproductive History Menstrual Age of Menarche: 11 Questionnaire Thrive Questionnaire Date Thrive assessed: 06/15/22 GARETH-7 AMB Questionnaire GARETH-7 Date GARETH - 7 assessed: 06/15/22 Source: Developed by Drs. Marty Hernandez, Shaylee Hernandez, Adelfo Khan and colleagues, with an educational ziggy from [employer]. Review of Systems Const Denies headache(s) Eyes Denies loss of vision ENT Denies vertigo, Denies dizziness, Denies headache(s) and Denies sore throat Card Denies chest pain, Denies leg edema and Denies lightheadedness Resp Denies cough, Denies hemoptysis and Denies wheezing GI Denies abdominal pain, Denies melena, Denies constipation, Denies diarrhea and Denies vomiting Denies urinary frequency, Denies dysuria and Denies urinary urgency Musc Denies arthralgias, Denies joint swelling, Denies numbness and Denies tingling Neuro Denies Abnormal speech present, Denies behavioral changes, Denies vertigo, Denies dizziness, Denies headache(s), Denies loss of vision, Denies memory loss, Denies numbness and Denies tingling Psych Denies anxiety, Denies behavioral changes, Denies depression, Denies memory loss and Denies panic attacks Sky/Lymph Denies easy bleeding and Denies easy bruising Aller/Immun Denies wheezing Physical exam (Primary Care) Vital Signs: Last Vital Signs Pulse 74 12/22/22 10:31 BP 120/78 12/22/22 10:31 Pulse Ox 98 12/22/22 10:31 Oxygen Delivery Method Room Air 12/22/22 10:31 BMI result Body Mass Index 33.7 BMI Assessment/Plan discussion: High Tobacco/Smoking Status: Tobacco use Status Tobacco use date assessed 06/15/22 12/22/22 10:24 Patient Tobacco Use Status Never used Tobacco 12/22/22 10:24 e-Cigarette/Vaping Use Never Used 12/22/22 10:24 Thrive Assessment: Date of Thrive Assessment Date Thrive assessed 06/15/22 12/22/22 10:24 Const Other: obese General: healthy appearing, no acute distress, alert and awake Nutritional Appearance: well nourished Orientation/consciousness: oriented to person, oriented to place and oriented to time HENMT Ears: TM's normal bilaterally General nose exam: Normal nasal mucous membranes and turbinates present Eyes Conjunctivae: conjunctivae normal Sclerae: sclerae normal Pupils: Equal, round and reactive pupils present Neck Neck: Yes no lymphadenopathy and Yes no JVD Thyroid: Thyroid normal Carotids: no bruits Resp Effort & Inspection: normal respiratory effort and not tachypneic Auscultation: no crackles, no rales, no rhonchi and no wheezes Cardio Rate: regular rate Rhythm: regular rhythm Heart sounds: no murmurs and normal S1 and S2 GI Palpation (GI): Soft to palpation, nontender, no hepatomegaly and no splenomegaly Auscultation: normal bowel sounds Skin General skin exam: no rashes or lesions noted and dry skin Neuro General: oriented to person, oriented to place and oriented to time Cranial nerves: Yes Equal, round and reactive pupils present Speech: No Abnormal speech present Gait exam (Neuro): Normal gait present Motor exam (neuro): no tremor noted Extrem Right upper extremity: full ROM Left upper extremity: full ROM Right lower extremity: full ROM; no edema Left lower extremity: full ROM; no edema Psych Mental Status: mental status grossly normal Speech and movement: Normal speech and movement present Affect: normal affect Attitude: cooperative Thought process: Normal thought process present Assessment and Plan Assessment & Plan (1) Heart failure with reduced ejection fraction: Code(s): I50.20 - Unspecified systolic (congestive) heart failure Plan: Patient continues to follow cardiology. She is clinically euvolemic on physical exam today. Continues on Entresto at lower dose. (2) HTN (hypertension): Code(s): I10 - Essential (primary) hypertension Qualifiers: Hypertension type: essential hypertension Qualified Code(s): I10 - Essential (primary) hypertension Plan: Patient's blood pressure acceptable today in office continue current dose of antihypertensive medication. Goal blood pressure to be below 140/90 (3) Obese: Code(s): E66.9 - Obesity, unspecified Qualifiers: Obesity type: due to excess calories Obesity classification: adult class 1 (BMI 30 - 34.9) Serious obesity comorbidity presence: without serious comorbidity Body mass index: BMI 31.0-31.9 Qualified Code(s): E66.09 - Other obesity due to excess calories; Z68.31 - Body mass index [BMI] 31.0-31.9, adult Plan: Patient does understand her BMI is over 30 will work on being more physically active and adapting to better eating habits to reduce her weight. (4) PAF (paroxysmal atrial fibrillation): Code(s): I48.0 - Paroxysmal atrial fibrillation Plan: Again continues to follow cardiology, has D fib implanted. Continues on Eliquis 5 mg b.i.d. without any overt signs of bleeding. (5) HLD (hyperlipidemia): Code(s): E78.5 - Hyperlipidemia, unspecified Qualifiers: Hyperlipidemia type: mixed hyperlipidemia Qualified Code(s): E78.2 - Mixed hyperlipidemia Plan: Patient continues to control her cholesterol with dietary means. Most recent total cholesterol 200 and LDL at 1 123. Goal LDL to be below 160 Orders: Orders Comprehensive [place]. Panel Fast 6 Months I50.20 - Unspecified systolic (congestive) heart failure Lipid Panel 6 Months E78.2 - Mixed hyperlipidemia Microalbumin, Random (w Creat) 6 Months I10 - Essential (primary) hypertension Complete Blood Count no Diff 6 Months I48.0 - Paroxysmal atrial fibrillation TSH reflex Free T4 6 Months I48.0 - Paroxysmal atrial fibrillation Coding Level of Care Code Est Pt Level 4 (05121) Diagnoses Heart failure with reduced ejection fraction I50.20 Essential hypertension I10 Hypertension type: essential hypertension Class 1 obesity due to excess calories without serious comorbidity with body mass index (BMI) of 31.0 to 31.9 in adult E66.09; Z68.31 Obesity type: due to excess calories Obesity classification: adult class 1 (BMI 30 - 34.9) Serious obesity comorbidity presence: without serious comorbidity Body mass index: BMI 31.0-31.9 PAF (paroxysmal atrial fibrillation) I48.0 Mixed hyperlipidemia E78.2 Hyperlipidemia type: mixed hyperlipidemia
[2022-12-22 10:31] VITALS: BP 120/78; PULSE 74; O2SAT 98; BMI 33.7
== END 2022-12-22 11:11 | disposition home or self-care (01) ==
PROVIDERS: Visit Provider Physician Assistant
DX: I11.0 Hypertensive heart disease with heart failure (principal); I50.20 Unspecified systolic (congestive) heart failure; I48.0 Paroxysmal atrial fibrillation; E66.09 Other obesity due to excess calories; Z68.33 Body mass index [BMI] 33.0-33.9, adult; E78.2 Mixed hyperlipidemia
CPT/HCPCS: 99214

== ENCOUNTER → 2023-01-20 23:59 | Outpatient (BNV) | payer MEDICARE, MEDICAID, SELFPAY ==
[2022-10-30 14:04] VITALS: BP 104/68; BP 112/72; BMI 31.3
--- NOTE | 2023-01-20 13:24 | MHC.OFFVIS ---
Intake Intake Visit Reasons: Remote HF Monitoring- [employer] Allergies rivaroxaban [From XARELTO] Adverse Reaction (Intermediate, Verified 12/22/22 10:56) LEG EDEMA, RASH PFSH Medical History Encounter for monitoring sotalol therapy Hypotension arterial Osteoporosis screening Transaminitis Heart failure with reduced ejection fraction Biventricular ICD (implantable cardioverter-defibrillator) in place Nonischemic cardiomyopathy SVT (supraventricular tachycardia) PAF (paroxysmal atrial fibrillation) HLD (hyperlipidemia) HTN (hypertension) History of cardioversion Obesity (BMI 30-39.9) Graves' disease in remission Surgical History History of radiofrequency ablation procedure for cardiac arrhythmia History of cardiac defibrillator placement Hx of cardiac catheterization (~06/2017) Hx of tubal ligation Family History Father Stroke Hypertension Mother Hypertension Diabetes Daughter AVM (arteriovenous malformation) Son No problems noted. Sister No problems noted. Brother No problems noted. Brother No problems noted. Brother No problems noted. Brother No problems noted. Social History Household Members: Significant Other Housing: House Do you presently have visiting nurse or other home services: No Alcohol intake: never Comment: moderate risk Patient Tobacco Use Status: Never used Tobacco e-Cigarette/Vaping Use: Never Used Second Hand Smoke Exposure: No service: No Current occupational status: unemployed Cognitive needs: No Hearing needs: No Vision needs: Yes Female Reproductive History Menstrual Age of Menarche: 11 Office Procedures Cardiac Device Check Cardiac Device Check Details: Remote heart failure report generated 01/20/2023. Heart failure parameters are stable [id number] Cardiac Device Interrogation, cardio physiologic monitor Procedure code (CPT) selection complete Assessment & Plan Assessment & Plan (1) Biventricular ICD (implantable cardioverter-defibrillator) in place: Code(s): Z95.810 - Presence of automatic (implantable) cardiac defibrillator Plan: See above Coding Level of Care Code Procedure Only Diagnoses Biventricular ICD (implantable cardioverter-defibrillator) in place Z95.810 CPT Codes Cardiac Device Check - Cardiac Device 15: [id number] Cardiac Device Interrogation, cardio physiologic monitor ([id number])
== END ==
PROVIDERS: PCP Physician Assistant; Visit Provider Internal Medicine Cardiovascular Disease
DX: I50.20 Unspecified systolic (congestive) heart failure (principal); Z95.810 Presence of automatic (implantable) cardiac defibrillator
CPT/HCPCS: 93297

== ENCOUNTER 2023-02-06 17:42 | Emergency (ER) | payer MEDICARE, MEDICAID, SELFPAY ==
[2022-10-30 14:04] VITALS: BP 104/68; BP 112/72; BMI 31.3
--- NOTE | 2023-02-06 | ECG_ITS ---
Test Reason : CHEST PAIN Blood Pressure : / mmHG Vent. Rate : 083 BPM Atrial Rate : 077 BPM P-R Int : 188 ms QRS Dur : 106 ms QT Int : 438 ms P-R-T Axes : 082 -85 066 degrees QTc Int : 514 ms AV dual-paced rhythm with occasional ventricular-paced complexes and with occasional Premature ventricular complexes Abnormal ECG When compared with ECG of 12-MAY-2021 07:37, Premature ventricular complexes are now Present Vent. rate has increased BY 12 BPM Referred By: Generic ED Physician Electronically Signed By:LIDIA CHACON
--- NOTE | ~2023-02-06 | XR_ITS ---
EXAMINATION: CHEST 2 VIEWS CLINICAL INFORMATION: cough. COMPARISON: 05/09/2021. TECHNIQUE: PA and lateral views of the chest obtained. FINDINGS: The lungs are well expanded. No focal infiltrate, effusion, edema, or pneumothorax. Cardiac and mediastinal silhouettes are within normal limits for size. Biventricular pacemaker/AICD is noted with lead tips overlying expected right atrium, right ventricle, and coronary sinus. Mild vascular calculation in aorta. No acute bony abnormality seen XR/XR chest 2V IMPRESSION: Biventricular pacemaker/AICD. No focal airspace disease.
[2023-02-06 18:52] VITALS: BP 138/73; PULSE 76; RESP 18; TEMP 36.6; O2SAT 98; BMI 31.6
[2023-02-06 19:22] LABS: MANUAL DIFF FLAG NO
[2023-02-06 19:27] LABS: Basophils Percent Auto 0.5 % (0-2); Eosinophils Absolute Auto 0.2 X10*3/uL (0.0-0.4); Eosinophils Percent Auto 2.4 % (0-4); Hematocrit 39.3 % (37.0-47.0); Imm Gran Abs Auto 0.01 X10*3/uL (0.00-0.03); Imm Gran Pct Auto 0.2 % (0.0-0.4); Lymphocytes Absolute Auto 2.3 X10*3/uL (1.2-4.9); Lymphocytes Percent Auto 37.2 % (20-40); Mean Corpuscular HGB Conc 33.1 g/dl (31.0-35.0); Mean Corpuscular Hemoglobin 29.3 pg (27.0-33.0); Mean Corpuscular Volume 88.7 fL (80.0-98.0); Mean Platelet Volume 10.4 fL (9.4-12.3); Monocytes Absolute Auto 0.6 X10*3/uL (0.1-1.2); Monocytes Percent Auto 10.2 % (2-11); Neutrophils Percent Auto 49.5 % (45-73); Platelet Count 211 X10*3/uL (160-400); Red Blood Count 4.43 X10*6/uL (4.20-5.50); Red Cell Distribution Width 13.2 % (11.0-16.0); White Blood Count 6.2 X10*3/uL (4.8-10.8)
[2023-02-06 19:34] LABS: COVID-19 Test Positive (Negative); IDNOW Serial# BCCEAD1C
[2023-02-06 19:39] LABS: Alanine Aminotransferase 19 U/L (0-31); Albumin Level 4.1 g/dL (3.5-5.0); Alkaline Phosphatase 100 U/L (39-117); Anion Gap 14 (12-20); Aspartate Amino Transferase 23 U/L (5-31); Bilirubin Total 0.6 mg/dL (0.0-1.0); Blood Urea Nitrogen 13 mg/dL (9-16); Calcium 9.3 mg/dL (8.4-10.2); Carbon Dioxide 27 mmol/L (22-29); Chloride 107 mmol/L (96-108); Creatinine Clr Calc Pharmacy 83.4; Estimated Glomerular Filt Rate > 60; Glucose Random 110 mg/dL (60-115); IDNOW Serial# 08D9AD1C; Influenza A Negative (Negative); Influenza B2 Negative (Negative); Potassium 4.2 mmol/L (3.3-5.1); Sodium 144 mmol/L (135-145); Total Protein 7.3 g/dL (6.5-8.0)
[2023-02-06 19:46] LABS: Troponin-I High Sensitivity 5.9 ng/L (<3.5-17.0)
== END 2023-02-07 02:46 | disposition left against medical advice (07) ==
PROVIDERS: Emergency Provider Emergency Medicine; PCP Physician Assistant
DX: R68.89 Other general symptoms and signs (principal); Z11.52 Encounter for screening for COVID-19
CPT/HCPCS: 36415; 71046; 80053; 84484; 85025; 87502; 87635; 93005; 99283

== ENCOUNTER → 2023-02-06 19:08 | Outpatient (BNV) | payer MEDICARE, MEDICAID, SELFPAY ==
[2022-10-30 14:04] VITALS: BP 104/68; BP 112/72; BMI 31.3
== END ==
PROVIDERS: Emergency Provider Emergency Medicine; PCP Physician Assistant; Visit Provider Internal Medicine
DX: I49.3 Ventricular premature depolarization (principal); R94.31 Abnormal electrocardiogram [ECG] [EKG]
CPT/HCPCS: 93010

== ENCOUNTER → 2023-02-24 23:59 | Outpatient (BNV) | payer MEDICARE, MEDICAID, SELFPAY ==
[2022-10-30 14:04] VITALS: BP 104/68; BP 112/72; BMI 31.3
--- NOTE | 2023-02-24 12:58 | MHC.OFFVIS ---
Intake Intake Visit Reasons: Remote HF Monitoring- [employer]tr[employer] Allergies rivaroxaban [From XARELTO] Adverse Reaction (Intermediate, Verified 02/06/23 18:52) LEG EDEMA, RASH PFSH Medical History Encounter for monitoring sotalol therapy Hypotension arterial Osteoporosis screening Transaminitis Heart failure with reduced ejection fraction Biventricular ICD (implantable cardioverter-defibrillator) in place Nonischemic cardiomyopathy SVT (supraventricular tachycardia) PAF (paroxysmal atrial fibrillation) HLD (hyperlipidemia) HTN (hypertension) History of cardioversion Obesity (BMI 30-39.9) Graves' disease in remission Surgical History History of radiofrequency ablation procedure for cardiac arrhythmia History of cardiac defibrillator placement Hx of cardiac catheterization (~06/2017) Hx of tubal ligation Family History Father Stroke Hypertension Mother Hypertension Diabetes Daughter AVM (arteriovenous malformation) Son No problems noted. Sister No problems noted. Brother No problems noted. Brother No problems noted. Brother No problems noted. Brother No problems noted. Social History Household Members: Significant Other Housing: House Do you presently have visiting nurse or other home services: No Alcohol intake: never Comment: moderate risk Patient Tobacco Use Status: Never used Tobacco e-Cigarette/Vaping Use: Never Used Second Hand Smoke Exposure: No Advance Directives: No Advance Directives Information Provided: No service: No Current occupational status: unemployed Cognitive needs: No Hearing needs: No Vision needs: Yes Female Reproductive History Menstrual Age of Menarche: 11 Office Procedures Cardiac Device Check Cardiac Device Check Details: Remote heart failure report generated 02/24/2023. Heart failure parameters are within normal limits [id number] Cardiac Device Interrogation, cardio physiologic monitor Procedure code (CPT) selection complete Assessment & Plan Assessment & Plan (1) Biventricular ICD (implantable cardioverter-defibrillator) in place: Code(s): Z95.810 - Presence of automatic (implantable) cardiac defibrillator Plan: See above Coding Level of Care Code Procedure Only Diagnoses Biventricular ICD (implantable cardioverter-defibrillator) in place Z95.810 CPT Codes Cardiac Device Check - Cardiac Device 15: [id number] Cardiac Device Interrogation, cardio physiologic monitor ([id number])
== END ==
PROVIDERS: PCP Physician Assistant; Visit Provider Internal Medicine Cardiovascular Disease
DX: I50.20 Unspecified systolic (congestive) heart failure (principal); Z95.810 Presence of automatic (implantable) cardiac defibrillator
CPT/HCPCS: 93297

== ENCOUNTER 2023-03-17 14:27 | Outpatient (AMB) | payer MEDICARE, MEDICAID, SELFPAY ==
[2022-10-30 14:04] VITALS: BP 104/68; BP 112/72; BMI 31.3
[2023-03-17 14:35] VITALS: BP 124/82; PULSE 80; BMI 31.1
--- NOTE | 2023-03-17 14:35 | A.OFFVIS_ITS ---
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 Required: No Allergies rivaroxaban [From XARELTO] Adverse Reaction (Intermediate, Verified 03/17/23 14:38) LEG EDEMA, RASH Medication List - Last Reconciled 03/17/23 by Marie Mantilla NP acetaminophen (Tylenol Extra Strength) 1,000 mg PO Q6H PRN apixaban (Eliquis) 5 mg PO BID 90 days artifi.tears(hypromellose)(PF) 0.3% 1 drp ophthalmic (eye) Q4-6H PRN blood pressure test kit-large As directed cetirizine 10 mg PO DAILY PRN clonazepam (Klonopin) 0.5 mg PO BEDTIME PRN 30 days furosemide 40 mg PO DAILY mometasone 0.1% topical pyridoxine (vitamin B6) 100 mg PO DAILY 90 days sacubitril-valsartan 24-26 mg (Entresto) 1 tab PO BID 90 days sotalol 120 mg (1.5 x 80 mg) PO BID 30 days zolpidem 5 mg PO BEDTIME PRN HPI HPI Comments History of Present Illness Details 67-year-old female presents today as she has been getting chest pain the last days along with shortness of breath. She reports these symptoms started shortly after finding out her sister had and these episodes occur mostly at night and she tries to pray until she is able to fall asleep but they do come and go throughout the day. She denies any shortness of breath, dizziness, syncope, or paliptations. [facility] Medical History (Updated 03/17/23 @ 14:58 by Marie Mantilla NP) Chest pain Encounter for monitoring sotalol therapy Hypotension arterial Osteoporosis screening Transaminitis Heart failure with reduced ejection fraction Biventricular ICD (implantable cardioverter-defibrillator) in place Nonischemic cardiomyopathy SVT (supraventricular tachycardia) PAF (paroxysmal atrial fibrillation) HLD (hyperlipidemia) HTN (hypertension) History of cardioversion Obesity (BMI 30-39.9) Graves' disease in remission Surgical History History of radiofrequency ablation procedure for cardiac arrhythmia History of cardiac defibrillator placement Hx of cardiac catheterization (~06/2017) Hx of tubal ligation Family History Father Stroke Hypertension Mother Hypertension Diabetes Daughter AVM (arteriovenous malformation) Son No problems noted. Sister No problems noted. Brother No problems noted. Brother No problems noted. Brother No problems noted. Brother No problems noted. Social History Household Members: Significant Other Housing: House Do you presently have visiting nurse or other home services: No Alcohol intake: never Comment: moderate risk Patient Tobacco Use Status: Never used Tobacco e-Cigarette/Vaping Use: Never Used Second Hand Smoke Exposure: No service: No Current occupational status: unemployed Cognitive needs: No Hearing needs: No Vision needs: Yes Female Reproductive History Menstrual Age of Menarche: 11 Review of Systems ENT Reports dizziness Card Denies chest pain, Denies chest pain at rest, Denies chest pain with activity, Denies rapid heart rate, Denies pedal edema, Denies edema, Denies leg edema, Denies lightheadedness, Denies palpitations, Denies dyspnea, Denies dyspnea on exertion and Denies orthopnea Resp Denies cough, Denies dyspnea and Denies dyspnea on exertion GI Denies hematochezia and Denies change in stool character Musc Denies abnormal gait, Reports limited range of motion, Reports muscle cramps, Denies muscle weakness, Denies numbness, Denies radiating pain into limb, Denies stiffness and Denies tingling Neuro Denies abnormal gait, Reports dizziness, Denies numbness and Denies tingling Endo Denies palpitations Physical Exam Vital Signs: Last Vital Signs Pulse 80 03/17/23 14:35 BP 124/82 03/17/23 14:35 BMI result Body Mass Index 31.1 Assessment & Plan Assessment & Plan (1) Chest pain: Code(s): R07.9 - Chest pain, unspecified (2) PAF (paroxysmal atrial fibrillation): Code(s): I48.0 - Paroxysmal atrial fibrillation (3) Heart failure with reduced ejection fraction: Code(s): I50.20 - Unspecified systolic (congestive) heart failure Plan Patient appears to not be fluid overloaded on examination today. Will obtain lexiscan stress test to evaluate for ischemia due to chest discomforts. ED if symptoms persist. Will have her follow-up with me after she has her testing. Orders: Orders CA lexiscan stress w logan 03/17/23 I48.0 - Paroxysmal atrial fibrillation, R07.9 - Chest pain, unspecified NM cardiolite stress test 03/17/23 I48.0 - Paroxysmal atrial fibrillation, R07.9 - Chest pain, unspecified Coding Level of Care Code Est Pt Level 3 (30919) Diagnoses Chest pain R07.9 PAF (paroxysmal atrial fibrillation) I48.0 Heart failure with reduced ejection fraction I50.20
== END 2023-03-17 15:27 | disposition home or self-care (01) ==
PROVIDERS: PCP Physician Assistant; Visit Provider Nurse Practitioner
DX: R07.9 Chest pain, unspecified (principal); I48.0 Paroxysmal atrial fibrillation; I50.20 Unspecified systolic (congestive) heart failure
CPT/HCPCS: 93010; 99213

== ENCOUNTER → 2023-03-17 14:27 | Outpatient (BNVA) | payer MEDICARE, MEDICAID, SELFPAY ==
[2022-10-30 14:04] VITALS: BP 104/68; BP 112/72; BMI 31.3
== END ==
PROVIDERS: PCP Physician Assistant; Visit Provider Nurse Practitioner
DX: I48.0 Paroxysmal atrial fibrillation (principal); I50.20 Unspecified systolic (congestive) heart failure; R07.9 Chest pain, unspecified
CPT/HCPCS: 93005; 99212

== ENCOUNTER → 2023-03-31 23:59 | Outpatient (BNV) | payer MEDICARE, MEDICAID, SELFPAY ==
[2022-10-30 14:04] VITALS: BP 104/68; BP 112/72; BMI 31.3
--- NOTE | 2023-04-02 14:53 | MHC.OFFVIS ---
Intake Intake Visit Reasons: Remote HF Monitoring- [employer] Allergies rivaroxaban [From XARELTO] Adverse Reaction (Intermediate, Verified 03/17/23 14:38) LEG EDEMA, RASH PFSH Medical History (Updated 03/17/23 @ 14:58 by Marie Mantilla NP) Chest pain Encounter for monitoring sotalol therapy Hypotension arterial Osteoporosis screening Transaminitis Heart failure with reduced ejection fraction Biventricular ICD (implantable cardioverter-defibrillator) in place Nonischemic cardiomyopathy SVT (supraventricular tachycardia) PAF (paroxysmal atrial fibrillation) HLD (hyperlipidemia) HTN (hypertension) History of cardioversion Obesity (BMI 30-39.9) Graves' disease in remission Surgical History History of radiofrequency ablation procedure for cardiac arrhythmia History of cardiac defibrillator placement Hx of cardiac catheterization (~06/2017) Hx of tubal ligation Family History Father Stroke Hypertension Mother Hypertension Diabetes Daughter AVM (arteriovenous malformation) Son No problems noted. Sister No problems noted. Brother No problems noted. Brother No problems noted. Brother No problems noted. Brother No problems noted. Social History Household Members: Significant Other Housing: House Do you presently have visiting nurse or other home services: No Alcohol intake: never Comment: moderate risk Patient Tobacco Use Status: Never used Tobacco e-Cigarette/Vaping Use: Never Used Second Hand Smoke Exposure: No service: No Current occupational status: unemployed Cognitive needs: No Hearing needs: No Vision needs: Yes Female Reproductive History Menstrual Age of Menarche: 11 Office Procedures Cardiac Device Check Cardiac Device Check Details: Remote heart failure report generated 03/31/2023. Heart failure readings were elevated for some period time but now are back below upper limits of normal. Will follow-up with the patient [id number] Cardiac Device Interrogation, cardio physiologic monitor Procedure code (CPT) selection complete Assessment & Plan Assessment & Plan (1) Biventricular ICD (implantable cardioverter-defibrillator) in place: Code(s): Z95.810 - Presence of automatic (implantable) cardiac defibrillator Plan: See above Coding Level of Care Code Procedure Only Diagnoses Biventricular ICD (implantable cardioverter-defibrillator) in place Z95.810 CPT Codes Cardiac Device Check - Cardiac Device 15: [id number] Cardiac Device Interrogation, cardio physiologic monitor ([id number])
== END ==
PROVIDERS: PCP Physician Assistant; Visit Provider Internal Medicine Cardiovascular Disease
DX: I50.21 Acute systolic (congestive) heart failure (principal); Z95.810 Presence of automatic (implantable) cardiac defibrillator
CPT/HCPCS: 93297

== ENCOUNTER → 2023-03-31 23:59 | Outpatient (BNV) | payer MEDICARE, MEDICAID, SELFPAY ==
[2022-10-30 14:04] VITALS: BP 104/68; BP 112/72; BMI 31.3
--- NOTE | 2023-03-31 15:45 | MHC.OFFVIS ---
Intake Intake Visit Reasons: Remote ICD Check- [employer] Allergies rivaroxaban [From XARELTO] Adverse Reaction (Intermediate, Verified 03/17/23 14:38) LEG EDEMA, RASH PFSH Medical History (Updated 03/17/23 @ 14:58 by Marie Mantilla NP) Chest pain Encounter for monitoring sotalol therapy Hypotension arterial Osteoporosis screening Transaminitis Heart failure with reduced ejection fraction Biventricular ICD (implantable cardioverter-defibrillator) in place Nonischemic cardiomyopathy SVT (supraventricular tachycardia) PAF (paroxysmal atrial fibrillation) HLD (hyperlipidemia) HTN (hypertension) History of cardioversion Obesity (BMI 30-39.9) Graves' disease in remission Surgical History History of radiofrequency ablation procedure for cardiac arrhythmia History of cardiac defibrillator placement Hx of cardiac catheterization (~06/2017) Hx of tubal ligation Family History Father Stroke Hypertension Mother Hypertension Diabetes Daughter AVM (arteriovenous malformation) Son No problems noted. Sister No problems noted. Brother No problems noted. Brother No problems noted. Brother No problems noted. Brother No problems noted. Social History Household Members: Significant Other Housing: House Do you presently have visiting nurse or other home services: No Alcohol intake: never Comment: moderate risk Patient Tobacco Use Status: Never used Tobacco e-Cigarette/Vaping Use: Never Used Second Hand Smoke Exposure: No service: No Current occupational status: unemployed Cognitive needs: No Hearing needs: No Vision needs: Yes Female Reproductive History Menstrual Age of Menarche: 11 Office Procedures Cardiac Device Check Cardiac Device Check Details: Remote ICD report generated 03/31/2023. ICD function is adequate although Bi V pacing is suboptimal at 93% due to PVCs. [id number] Cardiac Interrogation, implant defibrillator w/interim Procedure code (CPT) selection complete Assessment & Plan Assessment & Plan (1) Biventricular ICD (implantable cardioverter-defibrillator) in place: Code(s): Z95.810 - Presence of automatic (implantable) cardiac defibrillator Plan: See above Coding Level of Care Code Procedure Only Diagnoses Biventricular ICD (implantable cardioverter-defibrillator) in place Z95.810 CPT Codes Cardiac Device Check - Cardiac Device 13: [id number] Cardiac Interrogation, implant defibrillator w/interim ([id number])
== END ==
PROVIDERS: PCP Physician Assistant; Visit Provider Internal Medicine Cardiovascular Disease
DX: I42.9 Cardiomyopathy, unspecified (principal); Z95.810 Presence of automatic (implantable) cardiac defibrillator
CPT/HCPCS: 93295

== ENCOUNTER 2023-04-22 09:09 | Outpatient (REF) | payer MEDICARE, MEDICAID, SELFPAY ==
[2022-10-30 14:04] VITALS: BP 104/68; BP 112/72; BMI 31.3
--- NOTE | ~2023-04-22 | US_ITS ---
EXAMINATION: US RETROPERITONEAL LIMITED (RENAL ONLY) CLINICAL INFORMATION: Calculus of kidney. COMPARISON: Renal ultrasound 11/16/2022 and 05/19/2022. CT abdomen and pelvis 04/16/2022. TECHNIQUE: Real-time imaging of the kidneys. FINDINGS: RIGHT KIDNEY: 11.8 x 4.4 x 4.2 cm (SAG x AP x TRV). The kidney is normal in size, contour, and echogenicity. Renal cortical thickness is normal. There are several nonobstructing calculi within the right kidney, largest measuring 9 mm. There is no hydronephrosis. LEFT KIDNEY: 11.8 x 4.6 x 4.2 cm (SAG x AP x TRV). The kidney is normal in size, contour, and echogenicity. Renal cortical thickness is normal. 4 mm nonobstructing upper pole calculus. No hydronephrosis. US/US renal BI IMPRESSION: Bilateral nonobstructing renal calculi. No hydronephrosis of either kidney.
== END 2023-04-22 09:10 | disposition home or self-care (01) ==
LOC: HO.US 09:09
PROVIDERS: PCP Physician Assistant; Visit Provider Nurse Practitioner Family
DX: N20.0 Calculus of kidney (principal)
CPT/HCPCS: 76775

== ENCOUNTER → 2023-04-23 08:02 | Outpatient (REF) | payer MEDICARE, MEDICAID, SELFPAY ==
[2022-10-30 14:04] VITALS: BP 104/68; BP 112/72; BMI 31.3
== END ==
LOC: HO.CARD 08:02
PROVIDERS: PCP Physician Assistant; Visit Provider Nurse Practitioner
DX: Z13.89 Encounter for screening for other disorder (principal)

== ENCOUNTER 2023-05-04 14:47 | Outpatient (AMB) | payer MEDICARE, MEDICAID, SELFPAY ==
[2022-10-30 14:04] VITALS: BP 104/68; BP 112/72; BMI 31.3
--- NOTE | 2023-05-04 15:00 | MHC.OFFVIS ---
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 Voltage Inspector Required: No Accompanied by: Self / Same As Patient Allergies rivaroxaban [From XARELTO] Adverse Reaction (Intermediate, Verified 05/04/23 15:00) LEG EDEMA, RASH HPI HPI Comments History of Present Illness Details Ms. Vigil 67 yoF returns for follow-up of known fibromyalgia and lumbar osteoarthritis. Today she presents with complaints of bilateral shoulder pain. This is worse on the left. She had a previous injection in the shoulder that was helpful. Workup has shown glenohumeral osteoarthritis bilaterally. She takes a compound creme prescribed by pain management which is not very effective per patient. She does not like taking cymbalta or gabapentin as they make her sleepy and affect her stomach. She likes to play with her grandchildren and moon makes her sleepy so she only takes one at night. She also uses heat on her back. [facility] Medical History (Updated 05/04/23 @ 15:18 by XAVIER CerdaP-) Chronic radicular pain of lower back Chest pain Encounter for monitoring sotalol therapy Hypotension arterial Osteoporosis screening Transaminitis Heart failure with reduced ejection fraction Biventricular ICD (implantable cardioverter-defibrillator) in place Nonischemic cardiomyopathy SVT (supraventricular tachycardia) PAF (paroxysmal atrial fibrillation) HLD (hyperlipidemia) HTN (hypertension) History of cardioversion Obesity (BMI 30-39.9) Graves' disease in remission Surgical History History of radiofrequency ablation procedure for cardiac arrhythmia History of cardiac defibrillator placement Hx of cardiac catheterization (~06/2017) Hx of tubal ligation Family History Father Stroke Hypertension Mother Hypertension Diabetes Daughter AVM (arteriovenous malformation) Son No problems noted. Sister No problems noted. Brother No problems noted. Brother No problems noted. Brother No problems noted. Brother No problems noted. Social History Household Members: Significant Other Housing: House Do you presently have visiting nurse or other home services: No Alcohol intake: never Comment: moderate risk Patient Tobacco Use Status: Never used Tobacco e-Cigarette/Vaping Use: Never Used Second Hand Smoke Exposure: No service: No Current occupational status: unemployed Cognitive needs: No Hearing needs: No Vision needs: Yes Female Reproductive History Menstrual Age of Menarche: 11 Physical Exam Vital Signs: Last Vital Signs Temp 97 F 05/04/23 15:04 Pulse 94 05/04/23 15:04 BP 138/84 05/04/23 15:04 Pulse Ox 98 05/04/23 15:04 Oxygen Delivery Method Room Air 05/04/23 15:04 BMI result Body Mass Index 31.3 APPEARANCE: Patient in no acute distress EYES no redness, pupils equal and reactive to light, eyelids normal. No temporal artery tenderness, redness or swelling. SKIN: No inflammatory or neoplastic lesions. Normal color and turgor JOINT EXAM: ?? Cervical Spine: Full range of motion without pain; no tenderness. Thoracic Spine:? No scoliosis.? No tenderness on palpation. Some tenderness over the left chest wall where she has a pacemaker implant. Lumbar Spine: Alignment normal.? Pain with flexion and extension, tenderness to palpation of the lumbar spine and bilateral sacroiliac joints. Hands: LEFT:? Normal pain-free range of motion without tenderness, swelling, increased warmth or erythema. Able to make a full fist and has a good speech professor strength. ? RIGHT:? Normal pain-free range of motion.? Some tenderness reported to palpation of the 2nd MCP, no increased warmth, swelling or erythema noted.? Able to make a full fist and has good speech professor strength. Wrists:? Normal pain-free range of motion without tenderness, swelling, increased warmth or erythema. Elbows:. Normal pain-free range of motion without tenderness, swelling, increased warmth or erythema. Shoulders: LEFT:? Decreased range of motion and pain with flexion above 90 degrees, abduction above 90 degrees and internal rotation.? Tenderness to palpation anteriorly and in the subacromial space. No adenopathy, swelling, increased warmth or erythema. ? RIGHT:? Mild pain with abduction 120 degrees or with extremes of rotation. Slight anterior tenderness. No weakness, swelling, increased warmth or erythema. Hips:? Full range of motion without pain. Hip bursa:.? No tenderness. Knees:?? Normal pain-free range of motion without tenderness, swelling, increased warmth or erythema.? There is no effusion or crepitation Ankles:? Normal pain-free range of motion without tenderness, swelling, increased warmth or erythema. Feet: Normal pain-free range of motion with mild 1st MTP bony enlargement without tenderness, swelling, increased warmth or erythema. Tender points: Tenderness to digital palpation at the occiput, trapezius, second rib, lateral epicondyle, knees, greater trochanter and gluteal area bilaterally. ? Assessment & Plan Assessment & Plan (1) Fibromyalgia: Code(s): M79.7 - Fibromyalgia (2) Osteoarthritis of glenohumeral joints, bilateral: Comment: due to rotator cuff damage Code(s): M19.011 - Primary osteoarthritis, right shoulder; M19.012 - Primary osteoarthritis, left shoulder Plan #OA bilateal shoulder: Significant OA seen on imaging. Was helped some by injections at last visit. She says she still have some pain but not as before and does not need repeat injections at this time. #Fibromyalgia. Continue medicines as before for the fibromyalgia. Patient is managing well at this time. Orders: Orders PT Evaluation and Treatment 05/04/23 M54.16 - Radiculopathy, lumbar region, G89.29 - Other chronic pain Coding Level of Care Code Est Pt Level 3 (68970) Diagnoses Fibromyalgia M79.7 Osteoarthritis of glenohumeral joints, bilateral M19.011; M19.012
[2023-05-04 15:04] VITALS: BP 138/84; PULSE 94; TEMP 36.1; O2SAT 98; BMI 31.3
== END 2023-05-04 15:26 | disposition home or self-care (01) ==
PROVIDERS: PCP Physician Assistant; Visit Provider Nurse Practitioner Family
DX: M79.7 Fibromyalgia (principal); M19.011 Primary osteoarthritis, right shoulder; M19.012 Primary osteoarthritis, left shoulder
CPT/HCPCS: 99213

== ENCOUNTER → 2023-05-04 14:47 | Outpatient (BNVA) | payer MEDICARE, MEDICAID, SELFPAY ==
[2022-10-30 14:04] VITALS: BP 104/68; BP 112/72; BMI 31.3
== END ==
PROVIDERS: PCP Physician Assistant; Visit Provider Nurse Practitioner Family
DX: M79.7 Fibromyalgia (principal); M19.011 Primary osteoarthritis, right shoulder; M19.012 Primary osteoarthritis, left shoulder
CPT/HCPCS: 99212

== ENCOUNTER → 2023-05-05 23:59 | Outpatient (BNV) | payer MEDICARE, MEDICAID, SELFPAY ==
[2023-05-04 15:23] VITALS: BP 104/68; BP 112/72; BMI 31.3
--- NOTE | 2023-05-06 09:40 | A.OFFVIS_ITS ---
Intake Intake Visit Reasons: Remote HF Monitoring- [employer] Allergies rivaroxaban [From XARELTO] Adverse Reaction (Intermediate, Verified 05/04/23 15:00) LEG EDEMA, RASH PFSH Medical History (Updated 05/04/23 @ 15:18 [facility] Chronic radicular pain of lower back Chest pain Encounter for monitoring sotalol therapy Hypotension arterial Osteoporosis screening Transaminitis Heart failure with reduced ejection fraction Biventricular ICD (implantable cardioverter-defibrillator) in place Nonischemic cardiomyopathy SVT (supraventricular tachycardia) PAF (paroxysmal atrial fibrillation) HLD (hyperlipidemia) HTN (hypertension) History of cardioversion Obesity (BMI 30-39.9) Graves' disease in remission Surgical History History of radiofrequency ablation procedure for cardiac arrhythmia History of cardiac defibrillator placement Hx of cardiac catheterization (~06/2017) Hx of tubal ligation Family History Father Stroke Hypertension Mother Hypertension Diabetes Daughter AVM (arteriovenous malformation) Son No problems noted. Sister No problems noted. Brother No problems noted. Brother No problems noted. Brother No problems noted. Brother No problems noted. Social History Household Members: Significant Other Housing: House Do you presently have visiting nurse or other home services: No Alcohol intake: never Comment: moderate risk Patient Tobacco Use Status: Never used Tobacco e-Cigarette/Vaping Use: Never Used Second Hand Smoke Exposure: No service: No Current occupational status: unemployed Cognitive needs: No Hearing needs: No Vision needs: Yes Female Reproductive History Menstrual Age of Menarche: 11 Office Procedures Cardiac Device Check Cardiac Device Check Details: Remote heart failure report generated 05/05/2023. Heart failure parameters are at borderline. Will follow-up with patient. [id number] Cardiac Device Interrogation, cardio physiologic monitor Procedure code (CPT) selection complete Assessment & Plan Assessment & Plan (1) Biventricular ICD (implantable cardioverter-defibrillator) in place: Code(s): Z95.810 - Presence of automatic (implantable) cardiac defibrillator Plan: See above Coding Level of Care Code Procedure Only Diagnoses Biventricular ICD (implantable cardioverter-defibrillator) in place Z95.810 CPT Codes Cardiac Device Check - Cardiac Device 15: [id number] Cardiac Device Interrogation, cardio physiologic monitor ([id number])
== END ==
PROVIDERS: PCP Physician Assistant; Visit Provider Internal Medicine Cardiovascular Disease
DX: Z95.810 Presence of automatic (implantable) cardiac defibrillator (principal)
CPT/HCPCS: 93297

== ENCOUNTER → 2023-05-19 09:37 | Outpatient (REF) | payer MEDICARE, MEDICAID, SELFPAY ==
[2023-05-04 15:23] VITALS: BP 104/68; BP 112/72; BMI 31.3
--- NOTE | ~2023-05-19 | NM_ITS ---
Myocardial perfusion study Indication: Chest pain to evaluate for myocardial ischemia Technique: The patient was brought in for a Lexiscan perfusion study on 05/19/2023. Patient performed low-level exercise and was injected 0.4 mg of Lexiscan intravenously. Within a minute of injection, 30 mCi of sestamibi was given intravenously. Images were obtained using the SPECT gamma camera interlaced with the gating device. Images were obtained in supine position. Resting perfusion study was performed on 05/25/2023. Patient was administered 30 mCi of sestamibi intravenously at rest. Images were then obtained in supine position. Images obtained with and without CT attenuation. Total DLP 152 mGy-cm Images were processed with the software and compared side to side in short axis, horizontal long axis and vertical long axis views. Findings: The stress perfusion study showed non attenuated images show moderately reduced uptake in the apex and mildly to moderately reduced uptake in the lateral wall of the LV myocardium. Remainder of the LV myocardium is otherwise normally perfused. Attenuation corrected images show mildly reduced uptake in the apex and mildly to moderately reduced uptake in the lateral wall of the LV myocardium.. The gated study shows reduced LV systolic function with calculated LVEF of 36%. LV cavity is moderately dilated size. The gated study shows diffusely reduced wall thickening and contraction of segments. Resting study shows no significant change in perfusion pattern compared to stress perfusion study. Gating at rest reveals diffuse wall motion abnormality with ejection fraction at 44%. The findings are consistent with no reversible defect suggestive of ischemia. There is Fixed lateral and apical defect which could represent attenuation artifact, nontransmural infarct is less likely.. NM/NM cardiolite stress test Impression: 1. Myocardial perfusion imaging study shows no reversible ischemia with fixed lateral and apical defect suggestive attenuation artifact 2. Gated LVEF is 36% 3. Transient ischemic dilatation present EKG is nondiagnostic for ischemia
--- NOTE | 2023-05-19 09:41 | CA_ITS ---
Acquisition Time: 2023-05-19 09:49:26 Total Exercise Time: 00:02:00 Test Indications: CP,UNSPECIFIED,PAF,DEFIBRILLATOR Medications: Protocol: LEXISCAN Max HR: 106 BPM 69% of Pred: 152 BPM Max BP: 126/074 mmHG Max Work Load: 1.0 METS Pharmacological stress test with Lexiscan injection while sitting and kicking her legs, without anginal symptoms, with isolated PVCs and ventricular cuplets, with normotensive response to injection, with nondiagnoisitic EKGs. Aminophylline 75mg IVP given to reverse Lexiscan. Nuclear images pending. Test reviewed with Dr. Bruno Referred By: Marie Mantilla Overread By: Marie Mantilla
== END ==
LOC: HO.CARD 09:37
PROVIDERS: PCP Physician Assistant; Visit Provider Nurse Practitioner
DX: R07.9 Chest pain, unspecified (principal); I48.0 Paroxysmal atrial fibrillation
CPT/HCPCS: 78452; 93017; A9500; J0280; J2785

== ENCOUNTER → 2023-05-19 09:41 | Outpatient (BNV) | payer MEDICARE, MEDICAID, SELFPAY ==
[2023-05-04 15:23] VITALS: BP 104/68; BP 112/72; BMI 31.3
== END ==
PROVIDERS: PCP Physician Assistant; Visit Provider Nurse Practitioner
DX: I49.3 Ventricular premature depolarization (principal)
CPT/HCPCS: 78452; 93016; 93018

== ENCOUNTER 2023-05-25 10:43 | Outpatient (AMB) | payer MEDICARE, MEDICAID, SELFPAY ==
[2023-05-04 15:23] VITALS: BP 104/68; BP 112/72; BMI 31.3
--- NOTE | 2023-05-25 10:58 | MHC.OFFVIS ---
Intake Intake Visit Reasons: 6m/US(set) Intake Note: Patient presents today for established treatment of : Renal Stones Imagin04/22/23 Urology Medications: vitamin B6 Allergies to Antibiotic: None Blood Thinner: None Sports Official Required: No Accompanied by: Self / Same As Patient Allergies rivaroxaban [From XARELTO] Adverse Reaction (Intermediate, Verified 05/25/23 11:50) LEG EDEMA, RASH Medication List - Last Reconciled 05/25/23 by YOLANDA Vallejo-ERIN acetaminophen (Tylenol Extra Strength) 1,000 mg PO Q6H PRN apixaban (Eliquis) 5 mg PO BID 90 days artifi.tears(hypromellose)(PF) 0.3% 1 drp ophthalmic (eye) Q4-6H PRN blood pressure test kit-large As directed cetirizine 10 mg PO DAILY PRN clonazepam (Klonopin) 0.5 mg PO BEDTIME PRN 30 days furosemide 40 mg PO DAILY mometasone 0.1% topical pyridoxine (vitamin B6) 100 mg PO DAILY 90 days sacubitril-valsartan 24-26 mg (Entresto) 1 tab PO BID 90 days sotalol 120 mg (1.5 x 80 mg) PO BID 30 days zolpidem 5 mg PO BEDTIME PRN HPI HPI Comments History of Present Illness Details Iliana is a pleasant 67 year old female patient of Dr. Smith. She has a past medical history of heart failure with reduced ejection fracture, biventricular ICD in place, nonischemic cardiomyopathy, SVT, paroxysmal AFib, hyperlipidemia, hypertension, and Graves disease in remission. She presents to the office today for a follow up of her nephrolithiasis. Recent renal imaging results reviewed with the patient today. Bilateral kidneys with no hydronephrosis or lesions noted. Right kidney with several nonobstructing calculi within the right kidney largest measuring approximately 9 mm. Left kidney with 4 mm nonobstructing upper pole stone. In discussion with the patient today she reports her frustration regarding nephrolithiasis. She reports having called the office and recommendations were made for ER follow-up as she had been experiencing significant amount of pain. However, she discusses not liking to go to the emergency room therefore she did not seek emergency room care. She reports pain she had been experiencing has since subsided. She does endorse to intermittent flank pain bilaterally. No CVA tnderness noted bilaterally on xam today. Discussed at length increased stone burden on the right side. Discussed further interventions with ureteroscopy however patient does not wish to undergo surgery at this time. In office urinalysis results reviewed with the patient today. She currently denies any bothersome urinary issues or concerns. She denies urinary urgency, urinary frequency, incontinence, nocturia, hematuria, dysuria, foul smelling urine, changes to urinary stream, flank pain, fever, and or chills. She is happy with her current voiding parameters. Will continue with surveillance monitoring. She otherwise offers no other issues or concerns at this time. [facility] Medical History Chronic radicular pain of lower back Chest pain Encounter for monitoring sotalol therapy Hypotension arterial Osteoporosis screening Transaminitis Heart failure with reduced ejection fraction Biventricular ICD (implantable cardioverter-defibrillator) in place Nonischemic cardiomyopathy SVT (supraventricular tachycardia) PAF (paroxysmal atrial fibrillation) HLD (hyperlipidemia) HTN (hypertension) History of cardioversion Obesity (BMI 30-39.9) Graves' disease in remission Surgical History History of radiofrequency ablation procedure for cardiac arrhythmia History of cardiac defibrillator placement Hx of cardiac catheterization (~06/2017) Hx of tubal ligation Family History Father Stroke Hypertension Mother Hypertension Diabetes Daughter AVM (arteriovenous malformation) Son No problems noted. Sister No problems noted. Brother No problems noted. Brother No problems noted. Brother No problems noted. Brother No problems noted. Social History Household Members: Significant Other Housing: House Do you presently have visiting nurse or other home services: No Alcohol intake: never Comment: moderate risk Patient Tobacco Use Status: Never used Tobacco e-Cigarette/Vaping Use: Never Used Second Hand Smoke Exposure: No service: No Current occupational status: unemployed Cognitive needs: No Hearing needs: No Vision needs: Yes Female Reproductive History Menstrual Age of Menarche: 11 Review of Systems Const Reports as per HPI Eyes Reports no additional complaints ENT Reports no additional complaints Card Reports as per HPI Resp Reports no additional complaints GI Reports no additional complaints Reports as per HPI Musc Reports no additional complaints Psych Reports no additional complaints Endo Reports as per HPI Sky/Lymph Reports no additional complaints Aller/Immun Reports no additional complaints Physical Exam Const General: cooperative, healthy appearing, comfortable, no acute distress, well developed, alert and awake Orientation/consciousness: patient oriented x3 Limitations: no limitations HEENT Head: Yes normal to inspection, Yes normocephalic and Yes atraumatic Ears: hearing grossly normal bilaterally Eyes General: appearance normal, both eyes and all related structures Neck Neck: Yes normal visual inspection and Yes trachea midline Chest Chest palpation & inspection: normal inspection of the chest Resp Effort & Inspection: normal respiratory effort and able to speak in complete sentences Cardio Rate: regular rate GI Inspection: Yes normal to inspection General: Yes no CVA tenderness Back/Spine/Pelvis Back: no CVA tenderness Skin General skin exam: no rashes or lesions noted Neuro General: patient oriented x3 Extrem General: Yes normal to inspection Psych Appearance: grossly normal and well kempt Mental Status: mental status grossly normal Speech and movement: Normal speech and movement present and Clear speech present Affect: normal affect Attitude: cooperative Thought process: Normal thought process present Thought content: Normal thought content present Insight: Good insight present (Psych) Judgement: Good judgement present (Psych) Results AMB Urinalysis, Automated UA Leukoctes 15 Renee/uL Last Edit by TTA Marine on 05/25/23 11:16 UA Nitrite Negative Last Edit by TTA Marine on 05/25/23 11:16 UA Urobilinogen 0.2 mg/dL Last Edit by TTA Marine on 05/25/23 11:16 UA Protein 0 mg/dL Last Edit by TTA Marine on 05/25/23 11:16 UA pH 6.0 Last Edit by TTA Marine on 05/25/23 11:16 UA Blood 0 García/uL Last Edit by TTA Marine on 05/25/23 11:16 UA Specific [place] 1.010 Last Edit by TTA Marine on 05/25/23 11:16 UA Ketone Negative Last Edit by TTA Marine on 05/25/23 11:16 UA Bilirubin 0 mg/dL Last Edit by TTA Marine on 05/25/23 11:16 UA Glucose 0 mg/dL Last Edit by Nancy He on 05/25/23 11:16 Results Reviewed Results Reviewed: Laboratory Last Values Urine pH (Auto) 6.0 05/25/23 11:04 Specific [place] (Auto) 1.010 05/25/23 11:04 Urine Protein (Auto) 0 mg/dL 05/25/23 11:04 Glucose (UA)(Auto) 0 mg/dL 05/25/23 11:04 Urine Ketones (Auto) Negative 05/25/23 11:04 Urine Blood (Auto) 0 García/uL 05/25/23 11:04 Urine Nitrite (Auto) Negative 05/25/23 11:04 Urine Bilirubin (Auto) 0 mg/dL 05/25/23 11:04 Urine Urobilinogen (Auto) 0.2 mg/dL 05/25/23 11:04 Leukocyte Esterase (Auto) 15 Renee/uL 05/25/23 11:04 Date of Service: 04/22/23 EXAMINATION: US RETROPERITONEAL LIMITED (RENAL ONLY) FINDINGS: RIGHT KIDNEY: 11.8 x 4.4 x 4.2 cm (SAG x AP x TRV). The kidney is normal in size, contour, and echogenicity. Renal cortical thickness is normal. There are several nonobstructing calculi within the right kidney, largest measuring 9 mm. There is no hydronephrosis. LEFT KIDNEY: 11.8 x 4.6 x 4.2 cm (SAG x AP x TRV). The kidney is normal in size, contour, and echogenicity. Renal cortical thickness is normal. 4 mm nonobstructing upper pole calculus. No hydronephrosis. IMPRESSION: Bilateral nonobstructing renal calculi. No hydronephrosis of either kidney. Assessment & Plan Assessment & Plan (1) Bilateral renal stones: Code(s): N20.0 - Calculus of kidney (2) Flank pain: Code(s): R10.9 - Unspecified abdominal pain Plan In office urinalysis results reviewed with the patient today; as noted above. Recent renal ultrasound results reviewed with the patient today; as noted above. Discussed further treatment options of nephrolithiasis to include ureteroscopy versus surveillance monitoring. Discussed further metabolic workup with 24 hour urine collection and labs; however patient declines at this time. Discussed, educated, and stressed the importance of drinking plenty of water daily. Continue adding 1 oz of lemon juice to water daily. Continue vitamin B6 as discussed and prescribed. Will obtain CT KUB in 3 months Follow-up in 3 months with imaging to be completed prior; or sooner with any issues, concerns, and or questions. Orders: Orders AMB Urinalysis Automated Today Z13.9 - Encounter for screening, unspecified CT kidney stone Today N20.0 - Calculus of kidney Patient Instructions: The patient had an opportunity to ask questions regarding the treatment plan. All questions were answered. Physical exam, labs, and imaging were discussed and reviewed in detail. As well as risks, benefits, and discussion of treatment choices. No major barriers to understanding were identified. The patient expressed understanding and agreement with the above treatment plan. The patient was made aware they should contact our office by phone for worsening of their current condition, the appearance of new symptoms, or with any questions or concerns. Compliance is encouraged with any medications and follow up testing that is ordered. It is a privilege to be allowed the opportunity to participate in? your urological care.? Again, if you have any questions or concerns If you have any questions or concerns please do not hesitate to contact me. The office is [phone]. This note is constructed using voice recognition software. While every effort has been made to ensure accuracy job putter up and ticket preparer errors may have been included. Yours sincerely, ROSINA Vallejo Coding Level of Care Code Est Pt Level 3 (18334) Diagnoses Bilateral renal stones N20.0 Flank pain R10.9
== END 2023-05-25 11:25 | disposition home or self-care (01) ==
PROVIDERS: PCP Physician Assistant; Visit Provider Nurse Practitioner Family
DX: N20.0 Calculus of kidney (principal); R10.9 Unspecified abdominal pain; Z13.9 Encounter for screening, unspecified
CPT/HCPCS: 99213

== ENCOUNTER → 2023-05-25 10:43 | Outpatient (BNVA) | payer MEDICARE, MEDICAID, SELFPAY ==
[2023-05-04 15:23] VITALS: BP 104/68; BP 112/72; BMI 31.3
== END ==
PROVIDERS: PCP Physician Assistant; Visit Provider Nurse Practitioner Family
DX: N20.0 Calculus of kidney (principal); R10.9 Unspecified abdominal pain
CPT/HCPCS: 81003; 99212

== ENCOUNTER 2023-05-26 13:23 | Outpatient (AMB) | payer MEDICARE, MEDICAID, SELFPAY ==
[2023-05-04 15:23] VITALS: BP 104/68; BP 112/72; BMI 31.3
[2023-05-26 13:27] VITALS: BP 118/76; PULSE 82; BMI 31.3
--- NOTE | 2023-05-26 13:27 | A.OFFVIS_ITS ---
Vital Signs 05/26/23 13:27 Height 5 ft 9 in Weight 211 lb 10.3 oz BMI 31.3 BP 118/76 Blood Pressure Location Lt brachial Position Sitting Pulse 82 Pulse Source Monitor Intake Visit Reasons: 8 wk f/u /Criss Intake Note: 8 week follow up pt feels good with ekg Allergies rivaroxaban [From XARELTO] Adverse Reaction (Intermediate, Verified 05/26/23 13:49) LEG EDEMA, RASH Medication List - Last Reconciled 05/26/23 by Marie Mantilla NP acetaminophen (Tylenol Extra Strength) 1,000 mg PO Q6H PRN apixaban (Eliquis) 5 mg PO BID 90 days artifi.tears(hypromellose)(PF) 0.3% 1 drp ophthalmic (eye) Q4-6H PRN blood pressure test kit-large As directed cetirizine 10 mg PO DAILY PRN clonazepam (Klonopin) 0.5 mg PO BEDTIME PRN 30 days furosemide 40 mg PO DAILY pyridoxine (vitamin B6) 100 mg PO DAILY 90 days sacubitril-valsartan 24-26 mg (Entresto) 1 tab PO BID 90 days sotalol 120 mg (1.5 x 80 mg) PO BID 30 days zolpidem 5 mg PO BEDTIME PRN HPI Comments Details: 67-year-old female presents today for a follow-up after having testing for chest pains. She reports it has not reoccurred since shortly after the last visit. The symptoms started shortly after finding out her sister had and these episodes occurred mostly at night and she would pray until she fell asleep. She denies any chest pains, shortness of breath, dizziness, syncope, or palpitations. Reports she has been taking her medications as prescribed. [facility] Medical History Chronic radicular pain of lower back Chest pain Encounter for monitoring sotalol therapy Hypotension arterial Osteoporosis screening Transaminitis Heart failure with reduced ejection fraction Biventricular ICD (implantable cardioverter-defibrillator) in place Nonischemic cardiomyopathy SVT (supraventricular tachycardia) PAF (paroxysmal atrial fibrillation) HLD (hyperlipidemia) HTN (hypertension) History of cardioversion Obesity (BMI 30-39.9) Graves' disease in remission Surgical History History of radiofrequency ablation procedure for cardiac arrhythmia History of cardiac defibrillator placement Hx of cardiac catheterization (~06/2017) Hx of tubal ligation Family History Father Stroke Hypertension Mother Hypertension Diabetes Daughter AVM (arteriovenous malformation) Son No problems noted. Sister No problems noted. Brother No problems noted. Brother No problems noted. Brother No problems noted. Brother No problems noted. Social History Household Members: Significant Other Housing: House Do you presently have visiting nurse or other home services: No Alcohol intake: never Comment: moderate risk Patient Tobacco Use Status: Never used Tobacco e-Cigarette/Vaping Use: Never Used Second Hand Smoke Exposure: No service: No Current occupational status: unemployed Cognitive needs: No Hearing needs: No Vision needs: Yes Female Reproductive History Menstrual Age of Menarche: 11 Review of Systems Const Denies weakness ENT Denies dizziness Card Denies chest pain, Denies chest pain with activity, Denies syncope, Denies rapid heart rate, Denies pedal edema, Denies edema, Denies leg edema, Denies lightheadedness, Denies palpitations, Denies dyspnea, Denies dyspnea on exertion and Denies orthopnea Resp Denies cough, Denies dyspnea and Denies dyspnea on exertion GI Denies hematochezia and Denies change in stool character Musc Denies abnormal gait, Denies muscle cramps, Denies muscle weakness, Denies numbness, Denies radiating pain into limb and Denies tingling Neuro Denies abnormal gait, Denies dizziness, Denies syncope, Denies numbness, Denies tingling and Denies weakness Endo Denies palpitations Physical Exam Vital Signs: Last Vital Signs Pulse 82 05/26/23 13:27 BP 118/76 05/26/23 13:27 BMI result Body Mass Index 31.3 Const General: healthy appearing and no acute distress Orientation/consciousness: patient oriented x3 HEENT Head: Yes normal to inspection Eyes General: appearance normal, both eyes and all related structures Neck Neck: Yes normal visual inspection Chest Chest palpation & inspection: normal inspection of the chest Resp Effort & Inspection: normal respiratory effort Auscultation: clear to auscultation bilaterally Cardio Jugular venous distension: no JVD Palpation: normal PMI Rate: regular rate Rhythm: regular rhythm Heart sounds: S1 normal heart sound present, S2 normal heart sound present, no click, no gallops, no murmurs and no rubs GI Inspection: Yes normal to inspection Palpation (GI): Soft to palpation Skin General skin exam: no rashes or lesions noted Neuro General: patient oriented x3 Extrem General: Yes normal to inspection Psych Appearance: grossly normal Office Procedures EKG Details: EKG today AV dual-paced rhythm with occasional ventricular-paced complexes. Rate 82 bpm. [id number], Complete Assessment & Plan Assessment & Plan (1) Chest pain: Code(s): R07.9 - Chest pain, unspecified Category: Medical Plan Chest pains resolved after grieving sisters . No reoccurance. Will disucss results furher with Dr. Bruno due to baseline echo having wall motion abnormality. She is due for a device check next month with Dr. Bruno.
== END 2023-05-26 13:56 | disposition home or self-care (01) ==
PROVIDERS: PCP Physician Assistant; Visit Provider Nurse Practitioner
DX: R94.31 Abnormal electrocardiogram [ECG] [EKG] (principal)
CPT/HCPCS: 93010; 99213

== ENCOUNTER → 2023-05-26 13:23 | Outpatient (BNVA) | payer MEDICARE, MEDICAID, SELFPAY ==
[2023-05-04 15:23] VITALS: BP 104/68; BP 112/72; BMI 31.3
== END ==
PROVIDERS: PCP Physician Assistant; Visit Provider Nurse Practitioner
DX: R07.9 Chest pain, unspecified (principal); R94.31 Abnormal electrocardiogram [ECG] [EKG]
CPT/HCPCS: 93005; 99212

== ENCOUNTER → 2023-06-09 23:59 | Outpatient (BNV) | payer MEDICARE, MEDICAID, SELFPAY ==
[2023-05-04 15:23] VITALS: BP 104/68; BP 112/72; BMI 31.3
--- NOTE | 2023-06-10 14:36 | MHC.OFFVIS ---
Intake Visit Reasons: Remote HF monitoring- [employer] Allergies rivaroxaban [From XARELTO] Adverse Reaction (Intermediate, Verified 05/26/23 13:49) LEG EDEMA, RASH PFSH Medical History Chronic radicular pain of lower back Chest pain Encounter for monitoring sotalol therapy Hypotension arterial Osteoporosis screening Transaminitis Heart failure with reduced ejection fraction Biventricular ICD (implantable cardioverter-defibrillator) in place Nonischemic cardiomyopathy SVT (supraventricular tachycardia) PAF (paroxysmal atrial fibrillation) HLD (hyperlipidemia) HTN (hypertension) History of cardioversion Obesity (BMI 30-39.9) Graves' disease in remission Surgical History History of radiofrequency ablation procedure for cardiac arrhythmia History of cardiac defibrillator placement Hx of cardiac catheterization (~06/2017) Hx of tubal ligation Family History Father Stroke Hypertension Mother Hypertension Diabetes Daughter AVM (arteriovenous malformation) Son No problems noted. Sister No problems noted. Brother No problems noted. Brother No problems noted. Brother No problems noted. Brother No problems noted. Social History Household Members: Significant Other Housing: House Do you presently have visiting nurse or other home services: No Alcohol intake: never Comment: moderate risk Patient Tobacco Use Status: Never used Tobacco e-Cigarette/Vaping Use: Never Used Second Hand Smoke Exposure: No service: No Current occupational status: unemployed Cognitive needs: No Hearing needs: No Vision needs: Yes Female Reproductive History Menstrual Age of Menarche: 11 Office Procedures Cardiac Device Check Cardiac Device Check Details: Remote heart failure report generated 06/09/2023. Heart failure parameters are stable [id number] Cardiac Device Interrogation, cardio physiologic monitor Procedure code (CPT) selection complete Assessment & Plan Assessment & Plan (1) Biventricular ICD (implantable cardioverter-defibrillator) in place: Code(s): Z95.810 - Presence of automatic (implantable) cardiac defibrillator Category: Medical Plan: See above Coding Level of Care Code Procedure Only Diagnoses Biventricular ICD (implantable cardioverter-defibrillator) in place Z95.810 CPT Codes Cardiac Device Check - Cardiac Device 15: [id number] Cardiac Device Interrogation, cardio physiologic monitor ([id number])
== END ==
PROVIDERS: PCP Physician Assistant; Visit Provider Internal Medicine Cardiovascular Disease
DX: Z45.02 Encounter for adjustment and management of automatic implantable cardiac defibrillator (principal)
CPT/HCPCS: 93297

== ENCOUNTER 2023-06-17 06:44 | Outpatient (REF) | payer MEDICARE, MEDICAID, SELFPAY ==
[2023-05-04 15:23] VITALS: BP 104/68; BP 112/72; BMI 31.3
[2023-06-17 08:03] LABS: Hematocrit 37.5 % (37.0-47.0); Hemoglobin 12.6 g/dl (12.0-16.0); Mean Corpuscular HGB Conc 33.6 g/dl (31.0-35.0); Mean Corpuscular Hemoglobin 29.3 pg (27.0-33.0); Mean Corpuscular Volume 87.2 fL (80.0-98.0); Mean Platelet Volume 10.4 fL (9.4-12.3); Platelet Count 217 X10*3/uL (160-400); Red Cell Distribution Width 13.7 % (11.0-16.0); White Blood Count 7.7 X10*3/uL (4.8-10.8)
[2023-06-17 08:32] LABS: Creatinine Urine 163.93 mg/dL; Microalbum/Creatinine Ratio Ur 31.1 ug/mg cr (<30)
[2023-06-17 08:46] LABS: Alanine Aminotransferase 17 U/L (0-31); Albumin Level 4.2 g/dL (3.5-5.0); Alkaline Phosphatase 85 U/L (39-117); Anion Gap 13 (12-20); Aspartate Amino Transferase 20 U/L (5-31); Bilirubin Total 0.6 mg/dL (0.0-1.0); Blood Urea Nitrogen 12 mg/dL (9-16); Calcium 9.4 mg/dL (8.4-10.2); Carbon Dioxide 26 mmol/L (22-29); Chloride 108 mmol/L (96-108); Cholesterol 187 mg/dL (<200); Estimated Glomerular Filt Rate > 60; Glucose Fasting 108 mg/dL (60-99); HDL Cholesterol 45 mg/dL (>40); LDL Cholesterol Calculated 110 mg/dL (<100); Potassium 4.3 mmol/L (3.3-5.1); Sodium 143 mmol/L (135-145); Total Protein 7.2 g/dL (6.5-8.0); Triglycerides 160 mg/dL (<150)
[2023-06-17 08:52] LABS: TSH reflex Free T4 1.86 uIU/mL (0.32-4.0)
== END 2023-06-17 06:45 | disposition home or self-care (01) ==
LOC: HO.LAB 06:44
PROVIDERS: PCP Physician Assistant; Visit Provider Physician Assistant
DX: I50.20 Unspecified systolic (congestive) heart failure (principal); I48.0 Paroxysmal atrial fibrillation; E78.2 Mixed hyperlipidemia; I10 Essential (primary) hypertension
CPT/HCPCS: 36415; 80053; 80061; 82043; 82570; 84443; 85027

== ENCOUNTER 2023-06-22 10:09 | Outpatient (AMB) | payer MEDICARE, MEDICAID, SELFPAY ==
[2023-05-04 15:23] VITALS: BP 104/68; BP 112/72; BMI 31.3
--- NOTE | 2023-06-22 10:15 | A.OFFPC_ITS ---
Vital Signs 3 06/22/23 10:25 Height 5 ft 9 in Weight 214 lb 4 oz BMI 31.6 BP 130/64 Blood Pressure Location Lt brachial Position Sitting Pulse 87 Pulse Source Pulse Oximeter Pulse Oximetry (%) 98 Oxygen Delivery Method Room Air Intake Visit Reasons: f/u HTN Intake Note: Patient is here to follow up on HTN, PAF, HLD. 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 Automatic Hemmer: Not Required per policy Accompanied by: Self / Same As Patient Allergies rivaroxaban [From XARELTO] Adverse Reaction (Intermediate, Verified 06/22/23 10:33) LEG EDEMA, RASH Medication List - Last Reconciled 06/22/23 by Jeremy Smith PA-C acetaminophen (Tylenol Extra Strength) 1,000 mg PO Q6H PRN apixaban (Eliquis) 5 mg PO BID 90 days artifi.tears(hypromellose)(PF) 0.3% 1 drp ophthalmic (eye) Q4-6H PRN blood pressure test kit-large As directed cetirizine 10 mg PO DAILY PRN clonazepam (Klonopin) 0.5 mg PO BEDTIME PRN 30 days furosemide 40 mg PO DAILY pyridoxine (vitamin B6) 100 mg PO DAILY 90 days sacubitril-valsartan 24-26 mg (Entresto) 1 tab PO BID 90 days sotalol 120 mg (1.5 x 80 mg) PO BID 30 days zolpidem 5 mg PO BEDTIME PRN Tobacco use date assessed: 06/22/23 Fall risk assessment: No Falls in past year Last assessed Fall Risk: 06/22/23 Dental Screening Dental Screen Date: 06/22/23 Did you have a dental visit in the last 12 months?: Yes Did you have a dental problem in the last 6 months where you did not have access to dental care?: No Was dental information given to patient?: Patient has dentist HPI f/u HTN 2 HPI0 Details Patient is a 68-year-old female here today for a follow-up visit..? Patient has a past medical history significant for paroxysmal AFib, congestive heart failure with reduced ejection fraction, implantable defibrillator, SVT, hypertension, fibromyalgia, ? Anxiety Graves disease, obesity. Concern-> she continues to have an itchy scalp. Was seen by dermatology and started on topical steroids which have helped a itch though continues with intermittent itchy scalp. Also has skin manifestation that appears fungal versus psoriatic over her right foot. Also using topical steroids though has not been getting better. Also reports having left knee medial pain without any reported trauma. p-AFIB/ presence of implanted defibrillator : Patient is followed by Cardiology and has been euvolemic and without any further shortness of breath.? Did have cardio ablation in 2019. She continues on Eliquis 5 mg b.i.d. without any significant overt signs of bleeding. 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 .. Congestive heart failure with reduced ejection fraction: Has not had any exacerbations recently. Continues to follow cardiology. Noted most recent liver enzymes slightly elevated in April of 2022, will recheck at earliest convenience per .. ?anxiety:? She reports she found a service desk specialist in [facility]. Still suffers with anxiety though has been managed well with p.r.n. use clonazepam and talking to her therapist. Reviewed labs with patient and noted continued slightly elevated fasting blood sugar. Laboratory Tests 12/15/21 12/17/22 06/17/23 09:30 08:10 06:55 RBC 4.30 Creatinine 0.68 Fasting Glucose 109 H 108 H Cholesterol 200 H 187 LDL Cholesterol, C alc 128 H 110 H TSH 1.86 Urine Microalbumin 7.0 51.0 PFSH Medical History Chronic radicular pain of lower back Chest pain Encounter for monitoring sotalol therapy Hypotension arterial Osteoporosis screening Transaminitis Heart failure with reduced ejection fraction Biventricular ICD (implantable cardioverter-defibrillator) in place Nonischemic cardiomyopathy SVT (supraventricular tachycardia) PAF (paroxysmal atrial fibrillation) HLD (hyperlipidemia) HTN (hypertension) History of cardioversion Obesity (BMI 30-39.9) Graves' disease in remission Surgical History History of radiofrequency ablation procedure for cardiac arrhythmia History of cardiac defibrillator placement Hx of cardiac catheterization (~06/2017) Hx of tubal ligation Family History Father Stroke Hypertension Mother Hypertension Diabetes Daughter AVM (arteriovenous malformation) Son No problems noted. Sister No problems noted. Brother No problems noted. Brother No problems noted. Brother No problems noted. Brother No problems noted. Social History Household Members: Significant Other Housing: House Do you presently have visiting nurse or other home services: No Alcohol intake: never Comment: moderate risk Patient Tobacco Use Status: Never used Tobacco e-Cigarette/Vaping Use: Never Used Second Hand Smoke Exposure: No service: No Current occupational status: unemployed Cognitive needs: No Hearing needs: No Vision needs: Yes Female Reproductive History Menstrual Age of Menarche: 11 Questionnaire PHQ-9 Over the last 2 weeks, how often have you been bothered by any of the following problems? 1. Little interest or pleasure in doing things: not at all 2. Feeling down, depressed, or hopeless: not at all 3. Trouble falling or staying asleep, or sleeping too much: not at all 4. Feeling tired or having little energy: not at all 5. Poor appetite or overeating: not at all 6. Feeling bad about yourself - or that you are a failure or have let yourself or your family down: not at all 7. Trouble concentrating on things, such as reading the newspaper or watching television: not at all 8. Moving or speaking so slowly that other people could have noticed. Or the opposite - being so fidgety or restless that you have been moving around a lot more than usual: not at all 9. Thoughts that you would be better off or of hurting yourself in some way: not at all Total score: 0 Depression Screening Interpretation: Negative Depression Screening Done: Yes 16069 - PHQ-9 Billing: Yes Source: Developed by Drs. Marty Hernandez, Shaylee Hernandez, Adelfo Khan and colleagues, with an educational ziggy from [employer]. Thrive Questionnaire Date Thrive assessed: 06/22/23 I am a: Patient What is your living situation today?: I have a steady place to live Within the past 12 months, did the food you bought not last and you didn't have the money to get more?: Never true Within the past 12 months, did you worry whether your food would run out before you got money to buy more?: Never true Do you have trouble paying for medicines?: No Do you have trouble getting transportation to medical appointments?: No Do you have trouble paying your heating and electricity bill?: No Do you have trouble taking care of your child, family member or friend?: No Do you have trouble with day-to-day activities such as bathing, preparing meals, shopping, managing finances, etc.?: No Are you currently unemployed and looking for a job?: No Are you interested in more education?: No Currently or been in a relationship where the following occur: no concerns reported THRIVE Score: 0 AUDIT C Alcohol Use Questionnaire (AUDIT-C) 1. How often do you have a drink containing alcohol?: Never Total Score: 0 GARETH-7 AMB Questionnaire GARETH-7 Date GARETH - 7 assessed: 06/22/23 Feeling nervous, anxious, or on edge: 0 = Not at all Not being able to stop or control worryin = Not at all Worrying too much about different things: 0 = Not at all Trouble relaxin = Not at all Being so restless that it is hard to sit still: 0 = Not at all Becoming easily annoyed or irritable: 0 = Not at all Feeling afraid as if something awful might happen: 0 = Not at all Total GARETH-7 score (0-4 normal; 5-9 mild; 10-14 moderate; 15-21 severe): 0 Source: Developed by Drs. Marty Hernandez, Shaylee Hernandez, Adelfo Khan and colleagues, with an educational ziggy from [employer]. GARETH-7 Assessment Billing GARETH-7 Assessment Tool: GARETH-7 Assessment 98011 Review of Systems Const Denies headache(s) Eyes Denies loss of vision ENT Denies vertigo, Denies dizziness, Denies headache(s) and Denies sore throat Card Denies chest pain, Denies leg edema and Denies lightheadedness Resp Denies cough, Denies hemoptysis and Denies wheezing GI Denies abdominal pain, Denies melena, Denies constipation, Denies diarrhea and Denies vomiting Denies urinary frequency, Denies dysuria and Denies urinary urgency Musc Denies arthralgias, Denies joint swelling, Denies numbness and Denies tingling Neuro Denies Abnormal speech present, Denies behavioral changes, Denies vertigo, Denies dizziness, Denies headache(s), Denies loss of vision, Denies memory loss, Denies numbness and Denies tingling Psych Denies anxiety, Denies behavioral changes, Denies depression, Denies memory loss and Denies panic attacks Sky/Lymph Denies easy bleeding and Denies easy bruising Aller/Immun Denies wheezing Physical exam (Primary Care) Vital Signs: Last Vital Signs Pulse 87 06/22/23 10:25 BP 130/64 06/22/23 10:25 Pulse Ox 98 06/22/23 10:25 Oxygen Delivery Method Room Air 06/22/23 10:25 BMI result Body Mass Index 31.6 Tobacco/Smoking Status: Tobacco use Status Tobacco use date assessed 06/22/23 06/22/23 10:27 Patient Tobacco Use Status Never used Tobacco 06/22/23 10:16 e-Cigarette/Vaping Use Never Used 06/22/23 10:16 PHQ-9: PHQ-9 Score PHQ-9: Total score 0 06/22/23 10:16 Depression Screening Interpretation: Negative Thrive Assessment: Date of Thrive Assessment Date Thrive assessed 06/22/23 06/22/23 10:27 Currently or been in a relationship where the following occur: no concerns reported Const General: healthy appearing, no acute distress, alert and awake Nutritional Appearance: well nourished Orientation/consciousness: oriented to person, oriented to place and oriented to time HENMT Ears: TM's normal bilaterally General nose exam: Normal nasal mucous membranes and turbinates present Eyes Conjunctivae: conjunctivae normal Sclerae: sclerae normal Pupils: Equal, round and reactive pupils present Neck Neck: Yes no lymphadenopathy and Yes no JVD Thyroid: Thyroid normal Carotids: no bruits Resp Effort & Inspection: normal respiratory effort and not tachypneic Auscultation: no crackles, no rales, no rhonchi and no wheezes Cardio Rate: regular rate Rhythm: regular rhythm Heart sounds: no murmurs and normal S1 and S2 GI Palpation (GI): Soft to palpation, nontender, no hepatomegaly and no splenomegaly Auscultation: normal bowel sounds Skin General skin exam: no rashes or lesions noted and dry skin Neuro General: oriented to person, oriented to place and oriented to time Cranial nerves: Yes Equal, round and reactive pupils present Speech: No Abnormal speech present Gait exam (Neuro): Normal gait present Motor exam (neuro): no tremor noted Extrem Right upper extremity: full ROM Left upper extremity: full ROM Right lower extremity: full ROM; no edema Left lower extremity: full ROM; no edema Ankle/foot/toe images: 2 1. WELL-DEMARCATED ERYTHEMATOUS DRY APPEARING SKIN LESION Psych Mental Status: mental status grossly normal Speech and movement: Normal speech and movement present Affect: normal affect Attitude: cooperative Thought process: Normal thought process present Assessment and Plan Assessment & Plan (1) HTN (hypertension): Code(s): I10 - Essential (primary) hypertension Qualifiers: Hypertension type: essential hypertension Qualified Code(s): I10 - Essential (primary) hypertension Plan: Patient's blood pressure acceptable today in office continue current dose of antihypertensive medication. Goal blood pressure to be below 140/90 (2) Tinea pedis of right foot: Code(s): B35.3 - Tinea pedis Plan: Patient continues to well demarcated dry Skin manifestation over right heel. Has been using topical steroids though have not been helpful. Has seen Dermatology. Is considering biopsy ? Psoriasis. Will try antifungal possible tinea pedis (3) Heart failure with reduced ejection fraction: Code(s): I50.20 - Unspecified systolic (congestive) heart failure Plan: Patient continues to follow cardiology. She is clinically euvolemic on physical exam today. Continues on Entresto at lower dose. (4) Obese: Code(s): E66.9 - Obesity, unspecified Qualifiers: Obesity type: due to excess calories Obesity classification: adult class 1 (BMI 30 - 34.9) Serious obesity comorbidity presence: without serious comorbidity Body mass index: BMI 31.0-31.9 Qualified Code(s): E66.09 - Other obesity due to excess calories; Z68.31 - Body mass index [BMI] 31.0-31.9, adult Plan: Patient does understand her BMI is over 30 will work on being more physically active and adapting to better eating habits to reduce her weight. (5) PAF (paroxysmal atrial fibrillation): Code(s): I48.0 - Paroxysmal atrial fibrillation Plan: Again continues to follow cardiology, has D fib implanted. Continues on Eliquis 5 mg b.i.d. without any overt signs of bleeding. (6) HLD (hyperlipidemia): Code(s): E78.5 - Hyperlipidemia, unspecified Qualifiers: Hyperlipidemia type: mixed hyperlipidemia Qualified Code(s): E78.2 - Mixed hyperlipidemia Plan: Patient continues to control her cholesterol with dietary means. Most recent total cholesterol 200 and LDL at 1 123. Goal LDL to be below 160 (7) Left knee pain: Code(s): M25.562 - Pain in left knee Qualifiers: Chronicity: acute Qualified Code(s): M25.562 - Pain in left knee Plan: Reports acute medial left knee pain over the last few days. She denies any acute trauma. Will send for x-ray of left knee to evaluate for arthritis. (8) Impaired glucose metabolism: Code(s): R73.09 - Other abnormal glucose Plan: Noted elevated fasting blood sugar 108. Will check an A1c at next lab draw. She will continue lifestyle/dietary modifications Orders: Orders 2 XR knee LT 3V Today M25.562 - Pain in left knee Lipid Panel 6 Months E78.9 - Disorder of lipoprotein metabolism, unspecified Comprehensive [place]. Panel Fast 6 Months I10 - Essential (primary) hypertension Complete Blood Count no Diff 6 Months I10 - Essential (primary) hypertension Hemoglobin A1c 6 Months R73.09 - Other abnormal glucose Resp Allergy Profile Region I Today J30.1 - Allergic rhinitis due to pollen, R05.9 - Cough, unspecified Referrals 2 Allergy & Immunology Referral J30.1 - Allergic rhinitis due to pollen, L30.9 - Dermatitis, unspecified Medications: New 2 ciclopirox 0.77% 1 appl topical BID 4 weeks 30 grams 1RF B35.3 - Tinea pedis Coding Level of Care Code Est Pt Level 4 (76181) Diagnoses Essential hypertension I10 Hypertension type: essential hypertension Tinea pedis of right foot B35.3 Heart failure with reduced ejection fraction I50.20 Class 1 obesity due to excess calories without serious comorbidity with body mass index (BMI) of 31.0 to 31.9 in adult E66.09; Z68.31 Obesity type: due to excess calories Obesity classification: adult class 1 (BMI 30 - 34.9) Serious obesity comorbidity presence: without serious comorbidity Body mass index: BMI 31.0-31.9 PAF (paroxysmal atrial fibrillation) I48.0 Mixed hyperlipidemia E78.2 Hyperlipidemia type: mixed hyperlipidemia Acute pain of left knee M25.562 Chronicity: acute Impaired glucose metabolism R73.09 Additional Codes GARETH-7 Assessment Billing - GARETH-7 Assessment Tool: GARETH-7 Assessment 42870 ([id number])
[2023-06-22 10:25] VITALS: BP 130/64; PULSE 87; O2SAT 98; BMI 31.6
== END 2023-06-22 11:01 | disposition home or self-care (01) ==
PROVIDERS: PCP Physician Assistant; Visit Provider Physician Assistant
DX: I11.0 Hypertensive heart disease with heart failure (principal); I50.20 Unspecified systolic (congestive) heart failure; B35.3 Tinea pedis; I48.0 Paroxysmal atrial fibrillation; E78.2 Mixed hyperlipidemia; M25.562 Pain in left knee; R73.09 Other abnormal glucose
CPT/HCPCS: 99214

== ENCOUNTER 2023-06-23 12:34 | Outpatient (REF) | payer MEDICARE, MEDICAID, SELFPAY ==
[2023-05-04 15:23] VITALS: BP 104/68; BP 112/72; BMI 31.3
--- NOTE | ~2023-06-23 | XR_ITS ---
EXAMINATION: XR KNEE, LEFT CLINICAL INFORMATION: Pain in left knee COMPARISON: None available. TECHNIQUE: Four views of the left knee. FINDINGS: Small marginal osteophytes about the medial compartment indicative of mild osteoarthritis. Lateral compartment and patellofemoral compartment are unremarkable. No effusion. XR/XR knee LT 3V IMPRESSION: Mild osteoarthritis of the left knee.
== END 2023-06-23 12:35 | disposition home or self-care (01) ==
LOC: HO.XRAY 12:34
PROVIDERS: PCP Physician Assistant; Visit Provider Physician Assistant
DX: M25.562 Pain in left knee (principal)
CPT/HCPCS: 73562

== ENCOUNTER 2023-06-28 10:40 | Outpatient (AMB) | payer MEDICARE, MEDICAID, SELFPAY ==
[2023-05-04 15:23] VITALS: BP 104/68; BP 112/72; BMI 31.3
[2023-06-28 11:00] VITALS: BP 130/60; PULSE 80; BMI 31.6
--- NOTE | 2023-06-28 11:00 | A.OFFVIS_ITS ---
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 Accompanied by: Self / Same As Patient Allergies rivaroxaban [From XARELTO] Adverse Reaction (Intermediate, Verified 06/22/23 10:33) LEG EDEMA, RASH Medication List - Last Reconciled 06/28/23 by Andres Bruno MD acetaminophen (Tylenol Extra Strength) 1,000 mg PO Q6H PRN apixaban (Eliquis) 5 mg PO BID 90 days artifi.tears(hypromellose)(PF) 0.3% 1 drp ophthalmic (eye) Q4-6H PRN blood pressure test kit-large As directed cetirizine 10 mg PO DAILY PRN ciclopirox 0.77% 1 appl topical BID 4 weeks clonazepam (Klonopin) 0.5 mg PO BEDTIME PRN 30 days furosemide 40 mg PO DAILY pyridoxine (vitamin B6) 100 mg PO DAILY 90 days sacubitril-valsartan 24-26 mg (Entresto) 1 tab PO BID 90 days sotalol 120 mg (1.5 x 80 mg) PO BID 30 days zolpidem 5 mg PO BEDTIME PRN HPI Comments Details: Iliana comes for follow-up for her heart failure as well as atrial fibrillation and ICD check. She says she does not feel well and when I asked her what that means that she says she is bothered by this skin rash which is itchy and is currently gone through multiple creams. However she has not no heart issues. Earlier from February to April she had some increased shortness of breath at that time was called and increased on furosemide therapy. Since then she has been doing well. Her OptiVol status is also improved. She denies any orthopnea, PND. No prolonged palpitation irregular heartbeat. No lightheadedness, syncope. No bleeding issues or neurologic events. Her weight has remained stable. She is taking all her medications regularly. [facility] Medical History Chronic radicular pain of lower back Chest pain Encounter for monitoring sotalol therapy Hypotension arterial Osteoporosis screening Transaminitis Heart failure with reduced ejection fraction Biventricular ICD (implantable cardioverter-defibrillator) in place Nonischemic cardiomyopathy SVT (supraventricular tachycardia) PAF (paroxysmal atrial fibrillation) HLD (hyperlipidemia) HTN (hypertension) History of cardioversion Obesity (BMI 30-39.9) Graves' disease in remission Surgical History History of radiofrequency ablation procedure for cardiac arrhythmia History of cardiac defibrillator placement Hx of cardiac catheterization (~06/2017) Hx of tubal ligation Family History Father Stroke Hypertension Mother Hypertension Diabetes Daughter AVM (arteriovenous malformation) Son No problems noted. Sister No problems noted. Brother No problems noted. Brother No problems noted. Brother No problems noted. Brother No problems noted. Social History Household Members: Significant Other Housing: House Do you presently have visiting nurse or other home services: No Alcohol intake: never Comment: moderate risk Patient Tobacco Use Status: Never used Tobacco e-Cigarette/Vaping Use: Never Used Second Hand Smoke Exposure: No service: No Current occupational status: unemployed Cognitive needs: No Hearing needs: No Vision needs: Yes Female Reproductive History Menstrual Age of Menarche: 11 Review of Systems Const Denies chills, Denies fatigue, Denies fever(s), Denies frequent falls, Denies weakness, Denies weight gain and Denies weight loss ENT Denies dizziness Card Denies chest pain, Denies leg edema, Denies lightheadedness, Denies palpitations, Denies dyspnea and Denies dyspnea on exertion Resp Denies cough, Denies dyspnea and Denies dyspnea on exertion GI Denies hematochezia Musc Denies abnormal gait, Denies muscle weakness, Denies numbness, Denies radiating pain into limb and Denies tingling Neuro Denies abnormal gait, Denies dizziness, Denies frequent falls, Denies numbness, Denies tingling and Denies weakness Endo Denies fatigue and Denies palpitations Physical Exam Vital Signs: Last Vital Signs Pulse 80 06/28/23 11:00 BP 130/60 06/28/23 11:00 BMI result Body Mass Index 31.6 Const General: cooperative, healthy appearing, comfortable and no acute distress Orientation/consciousness: patient oriented x3 Neck Neck: Yes normal visual inspection and Yes no JVD Carotids: normal carotid upstroke Chest Chest palpation & inspection: normal inspection of the chest Resp Effort & Inspection: normal respiratory effort Auscultation: clear to auscultation bilaterally, no crackles, no rales, no rhonchi and no wheezes Cardio Jugular venous distension: no JVD Rate: regular rate Rhythm: regular rhythm Heart sounds: S1 normal heart sound present, S2 normal heart sound present, no murmurs and no rubs Neuro General: patient oriented x3 Extrem General: Yes normal to inspection, No no pedal edema and No calf tenderness Psych Appearance: grossly normal Mental Status: mental status grossly normal Speech and movement: Normal speech and movement present Office Procedures Cardiac Device Check Cardiac Device Check Details: Biventricular Medtronic ICD in place. Programmed in DDDR at 70 beats per minute. Atrial ventricular sensing is adequate. Battery life is adequate at 2.7 years. No episodes of atrial fibrillation noted. Six episodes of nonsustained ventricular tachycardia noted with PVCs noted. Biventricular pacing about 95% of the time. Suboptimal due to intermittent PVCs. Atrial and biventricular pacing thresholds adequate. Pacing and shock lead impedance is stable. [id number] Cardiac Device Check, multi lead implantable defibrillator Procedure code (CPT) selection complete EKG Details: EKG shows atrially sensed, ventricularly paced rhythm with biventricular pacing [id number], Complete Assessment & Plan Assessment & Plan (1) Heart failure with reduced ejection fraction: Code(s): I50.20 - Unspecified systolic (congestive) heart failure Category: Medical Plan: Heart failure with reduced ejection fraction in this elderly woman with nonischemic cardiomyopathy with worse symptoms and hospitalizations when she was in persistent atrial fibrillation. Has done very well with rhythm control approach although recently had some increase in OptiVol which was managed by increase diuretic therapy. Today appears to be clinically euvolemic and well compensated. Continue current neurohormonal modulation with Entresto as well as sotalol as a beta-josh. Will follow-up echocardiogram in 6 months time. Management of heart failure was discussed she also done very well with Bi V pacing although it is somewhat suboptimal due to frequent PVCs. (2) Biventricular ICD (implantable cardioverter-defibrillator) in place: Code(s): Z95.810 - Presence of automatic (implantable) cardiac defibrillator Category: Medical Plan: Biventricular ICD in place, working well. Reprogrammed for adequate functioning. Follow-up remotely for heart failure as well as device check. Will follow up clinic in 6 months time. (3) PAF (paroxysmal atrial fibrillation): Code(s): I48.0 - Paroxysmal atrial fibrillation Category: Medical Plan: Paroxysmal atrial fibrillation has done well with rhythm control approach. Will continue pursue rhythm control approach aggressively. No hospitalization since aggressive rhythm control. Continue sotalol therapy which has helped her to maintain rhythm. Avoidance of stimulants was discussed. Will continue monitor pacer telemetry. Continue full oral anticoagulation, currently on Eliquis 5 mg b.i.d.. Semi annual renal function test should be pursued. Will follow up in the clinic in 6 months time, sooner p.r.n.. Thank you for allowing me to partake in her care Orders: Orders CA echo transthoracic complete 6 Months I50.20 - Unspecified systolic (congestive) heart failure Medications: Refilled furosemide 40 mg PO DAILY 90 tabs 3RF I50.20 - Unspecified systolic (congestive) heart failure apixaban (Eliquis) 5 mg PO BID 90 days 180 tabs 3RF I48.0 - Paroxysmal atrial fibrillation sotalol 120 mg (1.5 x 80 mg) PO BID 30 days 90 tabs 5RF I50.20 - Unspecified systolic (congestive) heart failure sacubitril-valsartan 24-26 mg (Entresto) 1 tab PO BID 90 days 180 tabs 3RF I50.20 - Unspecified systolic (congestive) heart failure Coding Level of Care Code Est Pt Level 4 (79599) Diagnoses Heart failure with reduced ejection fraction I50.20 Biventricular ICD (implantable cardioverter-defibrillator) in place Z95.810 PAF (paroxysmal atrial fibrillation) I48.0 CPT Codes Cardiac Device Check - Cardiac Device 6: [id number] Cardiac Device Check, multi lead implantable defibrillator ([id number]) EKG - CPT: 13051-[id number], Complete ([id number])
== END 2023-06-28 11:21 | disposition home or self-care (01) ==
PROVIDERS: PCP Physician Assistant; Visit Provider Internal Medicine Cardiovascular Disease
DX: I50.20 Unspecified systolic (congestive) heart failure (principal); Z95.810 Presence of automatic (implantable) cardiac defibrillator; I48.0 Paroxysmal atrial fibrillation
CPT/HCPCS: 93010; 93284; 99214

== ENCOUNTER → 2023-06-28 10:40 | Outpatient (BNVA) | payer MEDICARE, MEDICAID, SELFPAY ==
[2023-05-04 15:23] VITALS: BP 104/68; BP 112/72; BMI 31.3
== END ==
PROVIDERS: PCP Physician Assistant; Visit Provider Internal Medicine Cardiovascular Disease
DX: I11.0 Hypertensive heart disease with heart failure (principal); I50.20 Unspecified systolic (congestive) heart failure; I48.0 Paroxysmal atrial fibrillation; Z45.02 Encounter for adjustment and management of automatic implantable cardiac defibrillator
CPT/HCPCS: 93005; 99212

== ENCOUNTER 2023-07-12 13:00 | Outpatient (RCR) | payer MEDICARE, MEDICAID, SELFPAY ==
[2023-05-04 15:23] VITALS: BP 104/68; BP 112/72; BMI 31.3
== END 2023-08-06 09:00 | disposition home or self-care (01) ==
LOC: HO.PT 13:00
PROVIDERS: PCP Physician Assistant; Visit Provider Nurse Practitioner Family
DX: M54.16 Radiculopathy, lumbar region (principal); G89.29 Other chronic pain
CPT/HCPCS: 97110; 97162; 97530; 97535

== ENCOUNTER → 2023-07-14 23:59 | Outpatient (BNV) | payer MEDICARE, MEDICAID, SELFPAY ==
[2023-05-04 15:23] VITALS: BP 104/68; BP 112/72; BMI 31.3
--- NOTE | 2023-07-16 13:45 | A.OFFVIS_ITS ---
Intake Visit Reasons: Remote HF Monitoring- Med[employer] Allergies rivaroxaban [From XARELTO] Adverse Reaction (Intermediate, Verified 06/22/23 10:33) LEG EDEMA, RASH PFSH Medical History Chronic radicular pain of lower back Chest pain Encounter for monitoring sotalol therapy Hypotension arterial Osteoporosis screening Transaminitis Heart failure with reduced ejection fraction Biventricular ICD (implantable cardioverter-defibrillator) in place Nonischemic cardiomyopathy SVT (supraventricular tachycardia) PAF (paroxysmal atrial fibrillation) HLD (hyperlipidemia) HTN (hypertension) History of cardioversion Obesity (BMI 30-39.9) Graves' disease in remission Surgical History History of radiofrequency ablation procedure for cardiac arrhythmia History of cardiac defibrillator placement Hx of cardiac catheterization (~06/2017) Hx of tubal ligation Family History Father Stroke Hypertension Mother Hypertension Diabetes Daughter AVM (arteriovenous malformation) Son No problems noted. Sister No problems noted. Brother No problems noted. Brother No problems noted. Brother No problems noted. Brother No problems noted. Social History Household Members: Significant Other Housing: House Do you presently have visiting nurse or other home services: No Alcohol intake: never Comment: moderate risk Patient Tobacco Use Status: Never used Tobacco e-Cigarette/Vaping Use: Never Used Second Hand Smoke Exposure: No service: No Current occupational status: unemployed Cognitive needs: No Hearing needs: No Vision needs: Yes Female Reproductive History Menstrual Age of Menarche: 11 Office Procedures Cardiac Device Check Cardiac Device Check Details: Remote heart failure report generated 07/14/2023. Heart failure parameters are stable [id number] Cardiac Device Interrogation, cardio physiologic monitor Procedure code (CPT) selection complete Assessment & Plan Assessment & Plan (1) Biventricular ICD (implantable cardioverter-defibrillator) in place: Code(s): Z95.810 - Presence of automatic (implantable) cardiac defibrillator Category: Medical Plan: see above Coding Level of Care Code Procedure Only Diagnoses Biventricular ICD (implantable cardioverter-defibrillator) in place Z95.810 CPT Codes Cardiac Device Check - Cardiac Device 15: [id number] Cardiac Device Interro gation, cardio physiologic monitor ([id number])
== END ==
PROVIDERS: PCP Physician Assistant; Visit Provider Internal Medicine Cardiovascular Disease
DX: Z45.02 Encounter for adjustment and management of automatic implantable cardiac defibrillator (principal)
CPT/HCPCS: 93297

== ENCOUNTER → 2023-07-14 23:59 | Outpatient (BNV) | payer MEDICARE, MEDICAID, SELFPAY ==
[2023-05-04 15:23] VITALS: BP 104/68; BP 112/72; BMI 31.3
--- NOTE | 2023-07-16 13:44 | MHC.OFFVIS ---
Intake Visit Reasons: Remote ICD Check- Med[employer] Allergies rivaroxaban [From XARELTO] Adverse Reaction (Intermediate, Verified 06/22/23 10:33) LEG EDEMA, RASH PFSH Medical History Chronic radicular pain of lower back Chest pain Encounter for monitoring sotalol therapy Hypotension arterial Osteoporosis screening Transaminitis Heart failure with reduced ejection fraction Biventricular ICD (implantable cardioverter-defibrillator) in place Nonischemic cardiomyopathy SVT (supraventricular tachycardia) PAF (paroxysmal atrial fibrillation) HLD (hyperlipidemia) HTN (hypertension) History of cardioversion Obesity (BMI 30-39.9) Graves' disease in remission Surgical History History of radiofrequency ablation procedure for cardiac arrhythmia History of cardiac defibrillator placement Hx of cardiac catheterization (~06/2017) Hx of tubal ligation Family History Father Stroke Hypertension Mother Hypertension Diabetes Daughter AVM (arteriovenous malformation) Son No problems noted. Sister No problems noted. Brother No problems noted. Brother No problems noted. Brother No problems noted. Brother No problems noted. Social History Household Members: Significant Other Housing: House Do you presently have visiting nurse or other home services: No Alcohol intake: never Comment: moderate risk Patient Tobacco Use Status: Never used Tobacco e-Cigarette/Vaping Use: Never Used Second Hand Smoke Exposure: No service: No Current occupational status: unemployed Cognitive needs: No Hearing needs: No Vision needs: Yes Female Reproductive History Menstrual Age of Menarche: 11 Office Procedures Cardiac Device Check Cardiac Device Check Details: Remote ICD report generated 07/14/2023. ICD function is adequate. Biventricular pacing 95.7% of the time. No episodes of atrial fibrillation [id number] Cardiac Interrogation, implant defibrillator w/interim Procedure code (CPT) selection complete Assessment & Plan Assessment & Plan (1) Biventricular ICD (implantable cardioverter-defibrillator) in place: Code(s): Z95.810 - Presence of automatic (implantable) cardiac defibrillator Category: Medical Plan: See above Coding Level of Care Code Procedure Only Diagnoses Biventricular ICD (implantable cardioverter-defibrillator) in place Z95.810 CPT Codes Cardiac Device Check - Cardiac Device 13: [id number] Cardiac Interrogation, implant defibrillator w/interim ([id number])
== END ==
PROVIDERS: PCP Physician Assistant; Visit Provider Internal Medicine Cardiovascular Disease
DX: Z45.02 Encounter for adjustment and management of automatic implantable cardiac defibrillator (principal)
CPT/HCPCS: 93295

== ENCOUNTER 2023-07-22 12:16 | Outpatient (AMB) | payer MEDICARE, MEDICAID, SELFPAY ==
[2023-05-04 15:23] VITALS: BP 104/68; BP 112/72; BMI 31.3
[2023-07-22 12:36] VITALS: BP 118/60; PULSE 79; O2SAT 96; BMI 31.9
--- NOTE | 2023-07-22 12:36 | MHC.OFFVIS ---
Vital Signs 07/22/23 12:36 Height 5 ft 9 in Weight 215 lb 13.321 oz BMI 31.9 BP 118/60 Blood Pressure Location Rt brachial Position Sitting Pulse 79 Pulse Source Pulse Oximeter Pulse Oximetry (%) 96 Oxygen Delivery Method Room Air Intake Visit Reasons: Low back pain/Sciatica [employer]ence [employer] Instructor Required: No Accompanied by: Self / Same As Patient Allergies rivaroxaban [From XARELTO] Adverse Reaction (Intermediate, Verified 07/22/23 12:37) LEG EDEMA, RASH HPI Comments Details: Ms. Vigil 67 yoF returns today with complaints of right shoulder and left knee pain. She has known fibromyalgia and lumbar osteoarthritis. She had a previous injection in the shoulder that was helpful. Workup has shown glenohumeral osteoarthritis bilaterally. She takes a compound creme prescribed by pain management which is not very effective per patient. She would like an injection to the left knee today and PT for her right shoulder. She states that the knee is probably hurting more due to a walkathon she reently did. [facility] Medical History Chronic radicular pain of lower back Chest pain Encounter for monitoring sotalol therapy Hypotension arterial Osteoporosis screening Transaminitis Heart failure with reduced ejection fraction Biventricular ICD (implantable cardioverter-defibrillator) in place Nonischemic cardiomyopathy SVT (supraventricular tachycardia) PAF (paroxysmal atrial fibrillation) HLD (hyperlipidemia) HTN (hypertension) History of cardioversion Obesity (BMI 30-39.9) Graves' disease in remission Surgical History History of radiofrequency ablation procedure for cardiac arrhythmia History of cardiac defibrillator placement Hx of cardiac catheterization (~06/2017) Hx of tubal ligation Family History Father Stroke Hypertension Mother Hypertension Diabetes Daughter AVM (arteriovenous malformation) Son No problems noted. Sister No problems noted. Brother No problems noted. Brother No problems noted. Brother No problems noted. Brother No problems noted. Social History Household Members: Significant Other Housing: House Do you presently have visiting nurse or other home services: No Alcohol intake: never Comment: moderate risk Patient Tobacco Use Status: Never used Tobacco e-Cigarette/Vaping Use: Never Used Second Hand Smoke Exposure: No service: No Current occupational status: unemployed Cognitive needs: No Hearing needs: No Vision needs: Yes Female Reproductive History Menstrual Age of Menarche: 11 Review of Systems Const All systems reviewed & are unremarkable except as noted in HPI and below Physical Exam Vital Signs: Last Vital Signs Pulse 79 07/22/23 12:36 BP 118/60 07/22/23 12:36 Pulse Ox 96 07/22/23 12:36 Oxygen Delivery Method Room Air 07/22/23 12:36 BMI result Body Mass Index 31.9 APPEARANCE: Patient in no acute distress EYES no redness, pupils equal and reactive to light, eyelids normal. No temporal artery tenderness, redness or swelling. SKIN: No inflammatory or neoplastic lesions. Normal color and turgor JOINT EXAM: Shoulders: LEFT:? Decreased range of motion and pain with flexion above 90 degrees, abduction above 90 degrees and internal rotation.? Tenderness to palpation anteriorly and in the subacromial space. No adenopathy, swelling, increased warmth or erythema. ? RIGHT:? Mild pain with abduction 120 degrees or with extremes of rotation. Slight anterior tenderness. No weakness, swelling, increased warmth or erythema. Hips:? Full range of motion without pain. Hip bursa:.? No tenderness. Knees:?? Normal pain-free range of motion with left mild tenderness to medial joint line, trace swelling but no increased warmth or erythema.? There is no effusion or crepitation Ankles:? Normal pain-free range of motion without tenderness, swelling, increased warmth or erythema. Feet: Normal pain-free range of motion with mild 1st MTP bony enlargement without tenderness, swelling, increased warmth or erythema. Tender points: Tenderness to digital palpation at the occiput, trapezius, second rib, lateral epicondyle, knees, greater trochanter and gluteal area bilaterally. ? Office Procedures Joint Injection/Drain Joint Injection/Drain Primary Site: left knee Prep: site was prepped using aseptic technique and injection warnings given Injected: 80 mg of, Kenalog, 1% plain lidocaine and other (lido 2 ml) Procedure: The patient tolerated the procedure well Coding 69879 - Large joint Procedure code (CPT) selection complete Results Reviewed Results Reviewed: 06/23/2023 TECHNIQUE: Four views of the left knee. FINDINGS: Small marginal osteophytes about the medial compartment indicative of mild osteoarthritis. Lateral compartment and patellofemoral compartment are unremarkable. No effusion. Assessment & Plan Assessment & Plan (1) Fibromyalgia: Code(s): M79.7 - Fibromyalgia Category: Medical (2) Osteoarthritis of glenohumeral joints, bilateral: Comment: due to rotator cuff damage Code(s): M19.011 - Primary osteoarthritis, right shoulder; M19.012 - Primary osteoarthritis, left shoulder Category: Medical (3) Left knee pain: Code(s): M25.562 - Pain in left knee Category: Medical Qualifiers: Chronicity: acute Qualified Code(s): M25.562 - Pain in left knee Plan #OA bilateal shoulder/Left Knee Pain: Significant OA seen on imaging. Was helped some by injections in the past. For the right shoulder she says she still have some pain but not as before and does not need repeat injections at this time and would prefer PT. She gets in injection in the left knee today which she tolerated well. She would benefit from a knee brace for her longer walks. #Fibromyalgia. Continue medicines as before for the fibromyalgia. Patient is managing well at this time. f/u Sept Spent 30 mins reviewing chart, evaluating patient and discussing treatment options. Orders: Orders AMB Joint Injection/Aspiration Today M25.562 - Pain in left knee Medications: New leg brace (Knee Brace Large-XLarge) As directed 1 ea 0RF Knee pain and instability M25.562 - Pain in left knee leg brace (Knee Brace Large-XLarge) As directed 1 ea 0RF Knee pain and instability M25.562 - Pain in left knee Coding Level of Care Code Est Pt Level 3 (83404) Complex EM visit Add On G2211 Diagnoses Fibromyalgia M79.7 Osteoarthritis of glenohumeral joints, bilateral M19.011; M19.012 Acute pain of left knee M25.562 Chronicity: acute CPT Codes Coding - Large joint: 40078 - Large joint ([id number])
== END 2023-07-22 13:24 | disposition home or self-care (01) ==
PROVIDERS: PCP Physician Assistant; Visit Provider Nurse Practitioner Family
DX: M79.7 Fibromyalgia (principal); M19.011 Primary osteoarthritis, right shoulder; M19.012 Primary osteoarthritis, left shoulder; M25.562 Pain in left knee
CPT/HCPCS: 20610; 99214

== ENCOUNTER → 2023-07-22 12:16 | Outpatient (BNVA) | payer MEDICARE, MEDICAID, SELFPAY ==
[2023-05-04 15:23] VITALS: BP 104/68; BP 112/72; BMI 31.3
== END ==
PROVIDERS: PCP Physician Assistant; Visit Provider Nurse Practitioner Family
DX: M19.012 Primary osteoarthritis, left shoulder (principal); M19.011 Primary osteoarthritis, right shoulder; M79.7 Fibromyalgia; M25.562 Pain in left knee
CPT/HCPCS: 20610; 99212

== ENCOUNTER 2023-08-04 08:19 | Outpatient (REF) | payer MEDICARE, MEDICAID, SELFPAY ==
[2023-05-04 15:23] VITALS: BP 104/68; BP 112/72; BMI 31.3
[2023-08-06 21:53] LABS: Class Alternaria alternata 0; Class Aspergillus fumigatus 0; Class Bermuda Grass 0; Class Birch 0; Class Cat Dander 0; Class Cladosporium herbarum 0; Class Cockroach 1; Class Common Ragweed 0; Class Cottonwood 0; Class Derm. pterony 0; Class Dermatophagoides farinae 0; Class Dog Dander 0; Class Elm 0; Class Maple Box Elder 0; Class Mountain Cedar 0; Class Mouse Urine Protein 0; Class Mugwort 0; Class Oak 0; Class Penicillium crysogenum 0; Class Rough Pigweed 0; Class Sheep Sorrel 0; Class Sycamore 0; Class Timothy Grass 0; Class Walnut Tree 0; Class White Ash 0; Class White Mulberry 0; D001 IgE D pteronyssinus <0.10 kU/L; D002 - IgE D farinae <0.10 kU/L; E001 - IgE Cat Dander <0.10 kU/L; E005 - IgE Dog Dander <0.10 kU/L; E072-IgE Mouse Urine <0.10 kU/L; G002 IgE Bermuda Grass <0.10 kU/L; G006 - IgE Timothy Grass <0.10 kU/L; Immunoglobulin E 32 kU/L (<OR=114); M001 IgE Penicillium chrysogen <0.10 kU/L; M002 - IgE Cladosporium herbar <0.10 kU/L; M003 - IgE Aspergillus fumigat <0.10 kU/L; M006 - IgE Alternaria alternat <0.10 kU/L; T001 IgE Maple/Box Elder <0.10 kU/L; T003 IgE Common Silver Birch <0.10 kU/L; T006 - IgE Cedar, Mountain <0.10 kU/L; T007 - IgE Oak, White <0.10 kU/L; T008 IgE Elm, American <0.10 kU/L; T010 - IgE Walnut <0.10 kU/L; T011 - IgE Maple Leaf Sycamore <0.10 kU/L; T014 - IgE Cottonwood <0.10 kU/L; T015 - IgE Ash, White <0.10 kU/L; T070 - IgE White Mulberry <0.10 kU/L; W001 - IgE Ragweed, Short <0.10 kU/L; W006 - IgE Mugwort <0.10 kU/L; W014 IgE Pigweed, Common <0.10 kU/L; W018 IgE Sheep Sorrel <0.10 kU/L
== END 2023-08-04 08:20 | disposition home or self-care (01) ==
LOC: HO.LAB 08:19
PROVIDERS: PCP Physician Assistant; Visit Provider Physician Assistant
DX: Z13.89 Encounter for screening for other disorder (principal)
CPT/HCPCS: 36415; 82785; 86003

== ENCOUNTER 2023-08-04 09:06 | Outpatient (REF) | payer MEDICARE, MEDICAID, SELFPAY ==
[2023-05-04 15:23] VITALS: BP 104/68; BP 112/72; BMI 31.3
--- NOTE | ~2023-08-04 | CT_ITS ---
EXAMINATION: CT ABDOMEN AND PELVIS WITHOUT CONTRAST CLINICAL INFORMATION: Renal calculi. COMPARISON: Renal ultrasound 04/22/2023. Multiple prior CT scans most recent 04/26/2022, dating back to 07/29/2020. TECHNIQUE: Multidetector volumetric imaging was performed from the superior aspect of the liver through the pubic symphysis. Sagittal and coronal reformatted images were obtained on the technologist's workstation. This CT examination was performed using dose optimization techniques as appropriate, variously including the following: *Automated exposure control *Adjustment of mA and/or kV according to patient size (this includes techniques or standardized protocols for targeted exams where dose is matched to indication/reason for exam; i.e. extremities or head) *Use of iterative reconstruction technique DLP: 686 mGy-cm FINDINGS: LUNG BASES: Scarring is present at the lung bases with associated traction bronchiectasis on the left. No suspicious masses are seen. The heart is enlarged and a bipolar pacemaker is present. LIVER, GALLBLADDER, AND BILIARY TREE: The liver is normal in size, shape, and attenuation. No focal hepatic lesion or biliary ductal dilatation is present. The gallbladder is unremarkable with no evidence of radiopaque gallstones, gallbladder wall thickening, or obvious pericholecystic inflammatory changes. PANCREAS: Unremarkable. SPLEEN: Unremarkable. ADRENAL GLANDS: Unremarkable. KIDNEYS AND URETERS: The kidneys are normal in size, shape, and attenuation. No hydronephrosis or hydroureter seen. No renal masses. There is bilateral moderate nephrolithiasis, right greater than left; the largest stone on the right is at the lower pole measuring about 1 cm in size. It is surrounded by multiple other smaller stones. This measures 1275 Hounsfield units and is 13 cm from the posterior axillary line. Some other scattered calculi are seen in the mid and lower right kidney with the largest measuring 0.5 cm. On the left, a cluster of stones is present at the upper pole with the largest measuring 0.5 cm. Multiple other smaller stones are seen surrounding this. BLADDER: Bladder is completely empty and cannot be evaluated. No bladder calculi seen. GASTROINTESTINAL TRACT: The small and large bowel are unremarkable aside from scattered colonic diverticula without diverticulitis. The appendix is unremarkable. ABDOMINAL WALL: No significant hernia is appreciated. LYMPH NODES: No retroperitoneal lymphadenopathy. VASCULAR: Calcific atherosclerotic changes are present in the aorta and iliofemoral vessels. There is no evidence of an abdominal aortic aneurysm. PELVIC VISCERA: There is a probable 3.4 cm uterine fibroid present which appears slightly hyperattenuating. This was present on the 04/16/2022 CT scan as well as older CT scan dating back to 07/29/2020 and is unchanged Transabdominal and endovaginal pelvic ultrasound is recommended for further evaluation and confirmation. OSSEOUS STRUCTURES: Marked degenerative change is seen from L3 through S1. No bony destructive lesions. CT/CT kidney stone IMPRESSION: 1. Bilateral nonobstructing renal calculi, right greater than left. 2. Probable uterine fibroid. Transabdominal and endovaginal pelvic ultrasound is recommended for further evaluation and confirmation. 3. Other incidental findings as described above. Fleischner guidelines were followed.
== END 2023-08-04 09:07 | disposition home or self-care (01) ==
LOC: HO.CT 09:06
PROVIDERS: Visit Provider Nurse Practitioner Family
DX: N20.0 Calculus of kidney (principal); Z91.09 Other allergy status, other than to drugs and biological substances
CPT/HCPCS: 36415; 74176; 82785; 86003

== ENCOUNTER 2023-08-05 10:36 | Outpatient (AMB) | payer MEDICARE, MEDICAID, SELFPAY ==
[2023-05-04 15:23] VITALS: BP 104/68; BP 112/72; BMI 31.3
[2023-08-05 11:29] VITALS: BP 128/76; BMI 31.7
--- NOTE | 2023-08-05 11:29 | MHC.OFFVIS ---
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 Allergies rivaroxaban [From XARELTO] Adverse Reaction (Intermediate, Verified 08/05/23 11:30) LEG EDEMA, RASH HPI Comments Details: Presenting for annual exam with no complaints Last co testing was in 03/31 was negative Last mammogram was in 01/29 was BI-RADS 1 Last DEXA scan was in 10/30 [facility] Medical History Chronic radicular pain of lower back Chest pain Encounter for monitoring sotalol therapy Hypotension arterial Osteoporosis screening Transaminitis Heart failure with reduced ejection fraction Biventricular ICD (implantable cardioverter-defibrillator) in place Nonischemic cardiomyopathy SVT (supraventricular tachycardia) PAF (paroxysmal atrial fibrillation) HLD (hyperlipidemia) HTN (hypertension) History of cardioversion Obesity (BMI 30-39.9) Graves' disease in remission Surgical History History of radiofrequency ablation procedure for cardiac arrhythmia History of cardiac defibrillator placement Hx of cardiac catheterization (~06/2017) Hx of tubal ligation Family History Father Stroke Hypertension Mother Hypertension Diabetes Daughter AVM (arteriovenous malformation) Son No problems noted. Sister No problems noted. Brother No problems noted. Brother No problems noted. Brother No problems noted. Brother No problems noted. Social History Household Members: Significant Other Housing: House Do you presently have visiting nurse or other home services: No Alcohol intake: never Comment: moderate risk Patient Tobacco Use Status: Never used Tobacco e-Cigarette/Vaping Use: Never Used Second Hand Smoke Exposure: No service: No Current occupational status: unemployed Cognitive needs: No Hearing needs: No Vision needs: Yes Female Reproductive History Menstrual Age of Menarche: 11 control method: none Date of last pap smear: 03/28/20 History of abnormal pap smear: No History of STI: No Date of Mammogram: 01/26/22 History of abnormal mammogram: No Review of Systems Const All systems reviewed & are unremarkable except as noted in HPI and below Card Reports as per HPI Resp Reports as per HPI GI Reports as per HPI and Reports no additional complaints Reports as per HPI Physical Exam Vital Signs: Last Vital Signs BP 128/76 08/05/23 11:29 BMI result Body Mass Index 31.7 Const General: cooperative, healthy appearing and comfortable Chest Chest palpation & inspection: normal inspection of the chest and normal palpation of entire chest wall Breast/axilla inspection: normal inspection of the breasts and normal inspection of the axillae Breast/axilla palpation: normal palpation of the breasts, normal palpation of the axillae and no axillary lymphadenopathy Resp Effort & Inspection: normal respiratory effort Auscultation: clear to auscultation bilaterally Percussion: percussion normal Cardio Palpation: normal PMI Rate: regular rate Rhythm: regular rhythm Heart sounds: no murmurs and no rubs Peripheral pulses: Peripheral pulses 2+ throughout GI Inspection: Yes normal to inspection Palpation (GI): Soft to palpation, nontender, no guarding, not rigid and No hepatosplenomegaly present Percussion: Yes normal to percussion Auscultation: normal bowel sounds Rectal Exam - Female: deferred General: Yes bladder normal to palpation External Female Exam: No lesion Speculum Exam - Vagina: normal appearance of the vagina, normal palpation, normal vaginal discharge and not erythematous Speculum Exam - Cervix: normal appearance of the cervix and normal palpation Bimanual exam- vagina & uterus: normal bimanual exam, normal palpation, uterine size normal, bladder normal to palpation, consistency normal and normal palpation Bimanual Exam- Adnexa, other: normal adnexae, no masses and no tenderness Assessment & Plan Assessment & Plan (1) Well woman exam: Code(s): Z01.419 - Encounter for gynecological examination (general) (routine) without abnormal findings Category: Medical Plan: Co testing not indicated since the patient 's age is above 65 with no history of abnormal Pap smears last 25 years. Counseled the patient about the recommended dietary allowance of 1200 mg of Calcium & 800 IU of vitamin D. Instructions given the patient to schedule next screening Mammogram in 01/31. Will order DEXA scan for 11/01 . The patient was instructed to perform monthly self-breast exams and to schedule a 2 week DEXA scan follow-up appointment and an annual exam in a year; All questions answered and the patient verbalized understanding. Orders: Orders XR DEXA axial skeleton 3 Months Z78.0 - Asymptomatic menopausal state Coding Level of Care Code Est Pt Prev Care >65y(25322) Diagnoses Well woman exam Z01.419
== END 2023-08-05 12:08 | disposition home or self-care (01) ==
PROVIDERS: Visit Provider Obstetrics & Gynecology
DX: Z01.419 Encounter for gynecological examination (general) (routine) without abnormal findings (principal)
CPT/HCPCS: G0101

== ENCOUNTER → 2023-08-05 10:36 | Outpatient (BNVA) | payer MEDICARE, MEDICAID, SELFPAY ==
[2023-05-04 15:23] VITALS: BP 104/68; BP 112/72; BMI 31.3
== END ==
PROVIDERS: Visit Provider Obstetrics & Gynecology
DX: Z01.419 Encounter for gynecological examination (general) (routine) without abnormal findings (principal)
CPT/HCPCS: G0101

== ENCOUNTER → 2023-08-15 23:59 | Outpatient (BNV) | payer MEDICARE, MEDICAID, SELFPAY ==
[2023-05-04 15:23] VITALS: BP 104/68; BP 112/72; BMI 31.3
--- NOTE | 2023-08-24 15:14 | A.OFFVIS_ITS ---
Intake Visit Reasons: Remote HF Monitoring- [employer] Allergies rivaroxaban [From XARELTO] Adverse Reaction (Intermediate, Verified 08/23/23 10:56) LEG EDEMA, RASH PFSH Medical History Chronic radicular pain of lower back Chest pain Encounter for monitoring sotalol therapy Hypotension arterial Osteoporosis screening Transaminitis Heart failure with reduced ejection fraction Biventricular ICD (implantable cardioverter-defibrillator) in place Nonischemic cardiomyopathy SVT (supraventricular tachycardia) PAF (paroxysmal atrial fibrillation) HLD (hyperlipidemia) HTN (hypertension) History of cardioversion Obesity (BMI 30-39.9) Graves' disease in remission Surgical History History of radiofrequency ablation procedure for cardiac arrhythmia History of cardiac defibrillator placement Hx of cardiac catheterization (~06/2017) Hx of tubal ligation Family History Father Stroke Hypertension Mother Hypertension Diabetes Daughter AVM (arteriovenous malformation) Son No problems noted. Sister No problems noted. Brother No problems noted. Brother No problems noted. Brother No problems noted. Brother No problems noted. Social History Household Members: Significant Other Housing: House Do you presently have visiting nurse or other home services: No Alcohol intake: never Comment: moderate risk Patient Tobacco Use Status: Never used Tobacco e-Cigarette/Vaping Use: Never Used Second Hand Smoke Exposure: No service: No Current occupational status: unemployed Cognitive needs: No Hearing needs: No Vision needs: Yes Female Reproductive History Menstrual Age of Menarche: 11 Office Procedures Cardiac Device Check Cardiac Device Check Details: Remote heart failure report generated 08/15/2023. Heart failure parameters are stable [id number] Cardiac Device Interrogation, cardio physiologic monitor Procedure code (CPT) selection complete Assessment & Plan Assessment & Plan (1) Biventricular ICD (implantable cardioverter-defibrillator) in place: Code(s): Z95.810 - Presence of automatic (implantable) cardiac defibrillator Category: Medical Plan: See above Coding Level of Care Code Procedure Only Diagnoses Biventricular ICD (implantable cardioverter-defibrillator) in place Z95.810 CPT Codes Cardiac Device Check - Cardiac Device 15: [id number] Cardiac Device Interrog ation, cardio physiologic monitor ([id number])
== END ==
PROVIDERS: PCP Physician Assistant; Visit Provider Internal Medicine Cardiovascular Disease
DX: Z45.02 Encounter for adjustment and management of automatic implantable cardiac defibrillator (principal)
CPT/HCPCS: 93297

== ENCOUNTER 2023-08-23 10:00 | Outpatient (AMB) | payer MEDICARE, MEDICAID, SELFPAY ==
[2023-05-04 15:23] VITALS: BP 104/68; BP 112/72; BMI 31.3
--- NOTE | 2023-08-23 10:29 | MHC.OFFVIS ---
Intake Visit Reasons: 3m/CT KUB(set) Intake Note: Patient presents today for established treatment of : Renal Stones Imagin08/04/23 Urology Medications: vitamin B6 Allergies to Antibiotic: None Blood Thinner: None Medical Insurance Coder Required: No Accompanied by: Self / Same As Patient Allergies rivaroxaban [From XARELTO] Adverse Reaction (Intermediate, Verified 08/23/23 10:56) LEG EDEMA, RASH Medication List - Last Reconciled 08/23/23 by YOLANDA Vallejo-ERIN acetaminophen (Tylenol Extra Strength) 1,000 mg PO Q6H PRN apixaban (Eliquis) 5 mg PO BID artifi.tears(hypromellose)(PF) 0.3% 1 drp ophthalmic (eye) Q4-6H PRN blood pressure test kit-large As directed cetirizine 10 mg PO DAILY PRN ciclopirox 0.77% 1 appl topical BID 4 weeks clonazepam (Klonopin) 0.5 mg PO BEDTIME PRN 30 days furosemide 40 mg PO DAILY leg brace (Knee Brace Large-XLarge) As directed pyridoxine (vitamin B6) 100 mg PO DAILY 90 days sacubitril-valsartan 24-26 mg (Entresto) 1 tab PO BID 90 days sotalol 120 mg (1.5 x 80 mg) PO BID 30 days zolpidem 5 mg PO BEDTIME PRN HPI Comments Details: Iliana is a pleasant 67 year old female patient of Dr. Smith. She has a past medical history of heart failure with reduced ejection fracture, biventricular ICD in place, nonischemic cardiomyopathy, SVT, paroxysmal AFib, hyperlipidemia, hypertension, and Graves disease in remission. She presents to the office today for a follow up of her nephrolithiasis. Recent CT KUB results reviewed with the patient today. There is bilateral moderate nephrolithiasis right greater than left the largest stone on the right is at the lower pole measuring about 1 cm in size. It is surrounded by multiple other smaller stones. Some other scattered calculi are seen in the mid and lower right kidney with the largest measuring 0.5 cm. On the left a cluster of stones is present at the upper pole with the largest measuring 0.5 cm. Multiple other smaller stones are seen surrounding this. The bladder is completely empty and no bladder calculi are seen. She reports since her last office visit here approximately 3 months ago she has had no bothersome urinary issues or concerns. 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 Degroot in discussing options for nephrolithiasis. She discusses given her longstanding cardiac history with biventricular ICD ESWL is not recommended and would need to undergo ureteroscopy for her nephrolithiasis. We discussed increase in stone burden right side greater than left. Discussed surveillance monitoring verses further surgical intervention this was discussed at length. Risks and benefits of these interventions were discussed. She denies urinary urgency, urinary frequency, incontinence, nocturia, hematuria, dysuria, foul smelling urine, changes to urinary stream, flank pain, fever, and or chills. She is happy with her current voiding parameters. She otherwise offers no other issues or concerns at this time. [facility] Medical History Chronic radicular pain of lower back Chest pain Encounter for monitoring sotalol therapy Hypotension arterial Osteoporosis screening Transaminitis Heart failure with reduced ejection fraction Biventricular ICD (implantable cardioverter-defibrillator) in place Nonischemic cardiomyopathy SVT (supraventricular tachycardia) PAF (paroxysmal atrial fibrillation) HLD (hyperlipidemia) HTN (hypertension) History of cardioversion Obesity (BMI 30-39.9) Graves' disease in remission Surgical History History of radiofrequency ablation procedure for cardiac arrhythmia History of cardiac defibrillator placement Hx of cardiac catheterization (~06/2017) Hx of tubal ligation Family History Father Stroke Hypertension Mother Hypertension Diabetes Daughter AVM (arteriovenous malformation) Son No problems noted. Sister No problems noted. Brother No problems noted. Brother No problems noted. Brother No problems noted. Brother No problems noted. Social History Household Members: Significant Other Housing: House Do you presently have visiting nurse or other home services: No Alcohol intake: never Comment: moderate risk Patient Tobacco Use Status: Never used Tobacco e-Cigarette/Vaping Use: Never Used Second Hand Smoke Exposure: No service: No Current occupational status: unemployed Cognitive needs: No Hearing needs: No Vision needs: Yes Female Reproductive History Menstrual Age of Menarche: 11 Review of Systems Const Reports as per HPI Eyes Reports no additional complaints ENT Reports no additional complaints Card Reports as per HPI Resp Reports no additional complaints GI Reports no additional complaints Reports as per HPI Musc Reports no additional complaints Psych Reports no additional complaints Endo Reports as per HPI Sky/Lymph Reports no additional complaints Aller/Immun Reports no additional complaints Physical Exam Const General: cooperative, healthy appearing, comfortable, no acute distress, well developed, alert and awake Orientation/consciousness: patient oriented x3 Limitations: no limitations HEENT Head: Yes normal to inspection, Yes normocephalic and Yes atraumatic Ears: hearing grossly normal bilaterally Eyes General: appearance normal, both eyes and all related structures Neck Neck: Yes normal visual inspection and Yes trachea midline Chest Chest palpation & inspection: normal inspection of the chest Resp Effort & Inspection: normal respiratory effort and able to speak in complete sentences Cardio Rate: regular rate GI Inspection: Yes normal to inspection General: Yes no CVA tenderness Back/Spine/Pelvis Back: no CVA tenderness Skin General skin exam: no rashes or lesions noted Neuro General: patient oriented x3 Extrem General: Yes normal to inspection Psych Appearance: grossly normal and well kempt Mental Status: mental status grossly normal Speech and movement: Normal speech and movement present and Clear speech present Affect: normal affect Attitude: cooperative Thought process: Normal thought process present Thought content: Normal thought content present Insight: Good insight present (Psych) Judgement: Good judgement present (Psych) Results AMB Urinalysis, Automated UA Leukoctes 0 Renee/uL Last Edit by FAGUO on 08/23/23 10:49 UA Nitrite Negative Last Edit by FAGUO on 08/23/23 10:49 UA Urobilinogen 0.2 mg/dL Last Edit by FAGUO on 08/23/23 10:49 UA Protein 0 mg/dL Last Edit by FAGUO on 08/23/23 10:49 UA pH 7.0 Last Edit by FAGUO on 08/23/23 10:49 UA Blood 0 García/uL Last Edit by FAGUO on 08/23/23 10:49 UA Specific [employer] 1.010 Last Edit by FAGUO on 08/23/23 10:49 UA Ketone Negative Last Edit by FAGUO on 08/23/23 10:49 UA Bilirubin 0 mg/dL Last Edit by Nancy He on 08/23/23 10:49 UA Glucose 0 mg/dL Last Edit by Nancy He on 08/23/23 10:49 Results Reviewed Results Reviewed: Laboratory Last Values Urine pH (Auto) 7.0 08/23/23 10:48 Specific [employer] (Auto) 1.010 08/23/23 10:48 Urine Protein (Auto) 0 mg/dL 08/23/23 10:48 Glucose (UA)(Auto) 0 mg/dL 08/23/23 10:48 Urine Ketones (Auto) Negative 08/23/23 10:48 Urine Blood (Auto) 0 García/uL 08/23/23 10:48 Urine Nitrite (Auto) Negative 08/23/23 10:48 Urine Bilirubin (Auto) 0 mg/dL 08/23/23 10:48 Urine Urobilinogen (Auto) 0.2 mg/dL 08/23/23 10:48 Leukocyte Esterase (Auto) 0 Renee/uL 08/23/23 10:48 Date of Service: 08/04/23 EXAMINATION: CT ABDOMEN AND PELVIS WITHOUT CONTRAST FINDINGS: LUNG BASES: Scarring is present at the lung bases with associated traction bronchiectasis on the left. No suspicious masses are seen. The heart is enlarged and a bipolar pacemaker is present. LIVER, GALLBLADDER, AND BILIARY TREE: The liver is normal in size, shape, and attenuation. No focal hepatic lesion or biliary ductal dilatation is present. The gallbladder is unremarkable with no evidence of radiopaque gallstones, gallbladder wall thickening, or obvious pericholecystic inflammatory changes. PANCREAS: Unremarkable. SPLEEN: Unremarkable. ADRENAL GLANDS: Unremarkable. KIDNEYS AND URETERS: The kidneys are normal in size, shape, and attenuation. No hydronephrosis or hydroureter seen. No renal masses. There is bilateral moderate nephrolithiasis, right greater than left; the largest stone on the right is at the lower pole measuring about 1 cm in size. It is surrounded by multiple other smaller stones. This measures 1275 Hounsfield units and is 13 cm from the posterior axillary line. Some other scattered calculi are seen in the mid and lower right kidney with the largest measuring 0.5 cm. On the left, a cluster of stones is present at the upper pole with the largest measuring 0.5 cm. Multiple other smaller stones are seen surrounding this. BLADDER: Bladder is completely empty and cannot be evaluated. No bladder calculi seen. GASTROINTESTINAL TRACT: The small and large bowel are unremarkable aside from scattered colonic diverticula without diverticulitis. The appendix is unremarkable. ABDOMINAL WALL: No significant hernia is appreciated. LYMPH NODES: No retroperitoneal lymphadenopathy. VASCULAR: Calcific atherosclerotic changes are present in the aorta and iliofemoral vessels. There is no evidence of an abdominal aortic aneurysm. PELVIC VISCERA: There is a probable 3.4 cm uterine fibroid present which appears slightly hyperattenuating. This was present on the 04/16/2022 CT scan as well as older CT scan dating back to 07/29/2020 and is unchanged Transabdominal and endovaginal pelvic ultrasound is recommended for further evaluation and confirmation. OSSEOUS STRUCTURES: Marked degenerative change is seen from L3 through S1. No bony destructive lesions. IMPRESSION: 1. Bilateral nonobstructing renal calculi, right greater than left. 2. Probable uterine fibroid. Transabdominal and endovaginal pelvic ultrasound is recommended for further evaluation and confirmation. 3. Other incidental findings as described above. Fleischner guidelines were followed. Assessment & Plan Assessment & Plan (1) Bilateral renal stones: Code(s): N20.0 - Calculus of kidney Category: Medical (2) Flank pain: Code(s): R10.9 - Unspecified abdominal pain Category: Medical Plan In office urinalysis results reviewed with the patient today; as noted above. Recent CT KUB results reviewed with the patient today; as noted above. Discussed further treatment options of nephrolithiasis to include ureteroscopy versus surveillance monitoring. Discussed further metabolic workup with 24 hour urine collection and labs; however patient declines at this time. Discussed, educated, and stressed the importance of drinking plenty of water daily. Continue adding 1 oz of lemon juice to water daily. Continue vitamin B6 as discussed and prescribed. Follow-up in 1 month to discuss plan of care as patient would like to think about surgical intervention; or sooner with any issues, concerns, and or questions. Orders: Orders AMB Urinalysis Automated Today Z13.9 - Encounter for screening, unspecified Patient Instructions: The patient had an opportunity to ask questions regarding the treatment plan. All questions were answered. Physical exam, labs, and imaging were discussed and reviewed in detail. As well as risks, benefits, and discussion of treatment choices. No major barriers to understanding were identified. The patient expressed understanding and agreement with the above treatment plan. The patient was made aware they should contact our office by phone for worsening of their current condition, the appearance of new symptoms, or with any questions or concerns. Compliance is encouraged with any medications and follow up testing that is ordered. It is a privilege to be allowed the opportunity to participate in? your urological care.? Again, if you have any questions or concerns If you have any questions or concerns please do not hesitate to contact me. The office is [phone]. This note is constructed using voice recognition software. While every effort has been made to ensure accuracy rectification printer errors may have been included. Yours sincerely, ROSINA Vallejo Coding Level of Care Code Est Pt Level 3 (38077) Complex EM visit Add On G2211 Diagnoses Bilateral renal stones N20.0 Flank pain R10.9
== END 2023-08-23 11:26 | disposition home or self-care (01) ==
PROVIDERS: PCP Physician Assistant; Visit Provider Nurse Practitioner Family
DX: N20.0 Calculus of kidney (principal); R10.9 Unspecified abdominal pain; Z13.9 Encounter for screening, unspecified
CPT/HCPCS: 99213; G2211

== ENCOUNTER → 2023-08-23 10:00 | Outpatient (BNVA) | payer MEDICARE, MEDICAID, SELFPAY ==
[2023-05-04 15:23] VITALS: BP 104/68; BP 112/72; BMI 31.3
== END ==
PROVIDERS: PCP Physician Assistant; Visit Provider Nurse Practitioner Family
DX: N20.0 Calculus of kidney (principal); R10.9 Unspecified abdominal pain
CPT/HCPCS: 81003; 99212

== ENCOUNTER → 2023-09-15 23:59 | Outpatient (BNV) | payer MEDICARE, MEDICAID, SELFPAY ==
[2023-05-04 15:23] VITALS: BP 104/68; BP 112/72; BMI 31.3
--- NOTE | 2023-09-17 12:31 | MHC.OFFVIS ---
Intake Visit Reasons: Remote HF monitoring- [employer] Allergies rivaroxaban [From XARELTO] Adverse Reaction (Intermediate, Verified 08/23/23 10:56) LEG EDEMA, RASH PFSH Medical History Chronic radicular pain of lower back Chest pain Encounter for monitoring sotalol therapy Hypotension arterial Osteoporosis screening Transaminitis Heart failure with reduced ejection fraction Biventricular ICD (implantable cardioverter-defibrillator) in place Nonischemic cardiomyopathy SVT (supraventricular tachycardia) PAF (paroxysmal atrial fibrillation) HLD (hyperlipidemia) HTN (hypertension) History of cardioversion Obesity (BMI 30-39.9) Graves' disease in remission Surgical History History of radiofrequency ablation procedure for cardiac arrhythmia History of cardiac defibrillator placement Hx of cardiac catheterization (~06/2017) Hx of tubal ligation Family History Father Stroke Hypertension Mother Hypertension Diabetes Daughter AVM (arteriovenous malformation) Son No problems noted. Sister No problems noted. Brother No problems noted. Brother No problems noted. Brother No problems noted. Brother No problems noted. Social History Household Members: Significant Other Housing: House Do you presently have visiting nurse or other home services: No Alcohol intake: never Comment: moderate risk Patient Tobacco Use Status: Never used Tobacco e-Cigarette/Vaping Use: Never Used Second Hand Smoke Exposure: No service: No Current occupational status: unemployed Cognitive needs: No Hearing needs: No Vision needs: Yes Female Reproductive History Menstrual Age of Menarche: 11 Office Procedures Cardiac Device Check Cardiac Device Check Details: Remote heart failure report generated 09/15/2023. Heart failure parameters the within normal range [id number] Cardiac Device Interrogation, cardio physiologic monitor Procedure code (CPT) selection complete Assessment & Plan Assessment & Plan (1) Biventricular ICD (implantable cardioverter-defibrillator) in place: Code(s): Z95.810 - Presence of automatic (implantable) cardiac defibrillator Category: Medical Plan: See above Coding Level of Care Code Procedure Only Diagnoses Biventricular ICD (implantable cardioverter-defibrillator) in place Z95.810 CPT Codes Cardiac Device Check - Cardiac Device 15: [id number] Cardiac Device Interrogation, cardio physiologic monitor ([id number])
== END ==
PROVIDERS: PCP Physician Assistant; Visit Provider Internal Medicine Cardiovascular Disease
DX: Z45.02 Encounter for adjustment and management of automatic implantable cardiac defibrillator (principal)
CPT/HCPCS: 93297

== ENCOUNTER 2023-10-08 11:35 | Outpatient (AMB) | payer MEDICARE, MEDICAID, SELFPAY ==
[2023-05-04 15:23] VITALS: BP 104/68; BP 112/72; BMI 31.3
--- NOTE | 2023-10-08 11:35 | A.OFFVIS_ITS ---
Intake Visit Reasons: 1m follow up Intake Note: Patient presents today for established treatment of : Renal Stones Urology Medications: vitamin B6 Allergies to Antibiotic: None Blood Thinner: None Retail Marketing Coordinator Required: No Accompanied by: Self / Same As Patient Allergies rivaroxaban [From XARELTO] Adverse Reaction (Intermediate, Verified 10/08/23 12:14) LEG EDEMA, RASH Medication List - Last Reconciled 10/08/23 by YOLANDA Vallejo-BC acetaminophen (Tylenol Extra Strength) 1,000 mg PO Q6H PRN apixaban (Eliquis) 5 mg PO BID artifi.tears(hypromellose)(PF) 0.3% 1 drp ophthalmic (eye) Q4-6H PRN blood pressure test kit-large As directed cetirizine 10 mg PO DAILY PRN ciclopirox 0.77% 1 appl topical BID 4 weeks clonazepam (Klonopin) 0.5 mg PO BEDTIME PRN 30 days furosemide 40 mg PO DAILY leg brace (Knee Brace Large-XLarge) As directed pyridoxine (vitamin B6) 100 mg PO DAILY 90 days sacubitril-valsartan 24-26 mg (Entresto) 1 tab PO BID 90 days sotalol 120 mg (1.5 x 80 mg) PO BID 30 days zolpidem 5 mg PO BEDTIME PRN HPI Comments Details: Iliana is a pleasant 68 year old female patient of Dr. Smith. She has a past medical history of heart failure with reduced ejection fracture, biventricular ICD in place, nonischemic cardiomyopathy, SVT, paroxysmal AFib, hyperlipidemia, hypertension, and Graves disease in remission. She is being followed up on today via telehealth for her nephrolithiasis. Of note, patient was seen approximately 6 weeks ago at which time discussion regarding surgical intervention for nephrolithiasis was had. We discussed at length ureteroscopy versus surveillance monitoring. We also discussed risks and benefits of these interventions at which time patient wanted to think about it and therefore today's telehealth appointment is to discuss plan of care. In discussion with the patient today she reports not wanting to undergo surgical intervention at this time as she has not had any bothersome urinary issues or concerns. She discusses her upcoming travel to [place] as her brother is not doing well. CT KUB results08/01 note bilateral moderate nephrolithiasis right greater than left the largest stone on the right is at the lower pole measuring about 1 cm in size. It is surrounded by multiple other smaller stones. Some other scattered calculi are seen in the mid and lower right kidney with the largest measuring 0.5 cm. On the left a cluster of stones is present at the upper pole with the largest measuring 0.5 cm. Multiple other smaller stones are seen surrounding this. The bladder is completely empty and no bladder calculi are seen. She re ports having followed up with her field service technician poultry Dr. Degroot in discussing options for nephrolithiasis. She discusses given her longstanding cardiac history with biventricular ICD ESWL is not recommended and would need to undergo ureteroscopy for her nephrolithiasis We discussed increase in stone burden right side greater than left. Discussed surveillance monitoring verses further surgical intervention this was discussed at length. Risks and benefits of these interventions were discussed. She denies urinary urgency, urinary frequency, incontinence, nocturia, hematuria, dysuria, foul smelling urine, changes to urinary stream, flank pain, fever, and or chills. She is happy with her current voiding parameters. She otherwise offers no other issues or concerns at this time. [facility] Medical History Chronic radicular pain of lower back Chest pain Encounter for monitoring sotalol therapy Hypotension arterial Osteoporosis screening Transaminitis Heart failure with reduced ejection fraction Biventricular ICD (implantable cardioverter-defibrillator) in place Nonischemic cardiomyopathy SVT (supraventricular tachycardia) PAF (paroxysmal atrial fibrillation) HLD (hyperlipidemia) HTN (hypertension) History of cardioversion Obesity (BMI 30-39.9) Graves' disease in remission Surgical History History of radiofrequency ablation procedure for cardiac arrhythmia History of cardiac defibrillator placement Hx of cardiac catheterization (~06/2017) Hx of tubal ligation Family History Father Stroke Hypertension Mother Hypertension Diabetes Daughter AVM (arteriovenous malformation) Son No problems noted. Sister No problems noted. Brother No problems noted. Brother No problems noted. Brother No problems noted. Brother No problems noted. Social History Household Members: Significant Other Housing: House Do you presently have visiting nurse or other home services: No Alcohol intake: never Comment: moderate risk Patient Tobacco Use Status: Never used Tobacco e-Cigarette/Vaping Use: Never Used Second Hand Smoke Exposure: No service: No Current occupational status: unemployed Cognitive needs: No Hearing needs: No Vision needs: Yes Female Reproductive History Menstrual Age of Menarche: 11 Physical Exam Const General: cooperative Orientation/consciousness: patient oriented x3 Resp Effort & Inspection: able to speak in complete sentences Neuro General: patient oriented x3 Psych Speech and movement: Clear speech present Attitude: cooperative Thought process: Normal thought process present Thought content: Normal thought content present Insight: Fair insight present (Psych) Judgement: Fair judgement present (Psych) Telehealth Telehealth Telehealth Platform: Intimate Bridge 2 Conception Location of provider rendering services: practice address Location of patient: address on file Patient Identification confirmed using: Name, : Yes Telehealth method: voice only Patient verbally consented to treatment: Yes Patient verbally consented to billing insurance company: Yes Patient informed of any privacy concerns related to visit: Yes Minutes spent on Phone/Video with Pt.: 15 Assessment & Plan Assessment & Plan (1) Bilateral renal stones: Code(s): N20.0 - Calculus of kidney Category: Medical Plan Discussed nephrolithiasis as well as surgical intervention for nephrolithiasis. All questions were answered. Patient would like to move forward with surveillance monitoring at this time. She currently denies any bothersome urinary issues or concerns. She reports be happy with current voiding parameters. Will obtain renal ultrasound in 6 months. Follow-up in 6 months with imaging to be completed prior; or sooner with any issues, concerns, and or questions. Orders: Orders US renal BI 6 Months N20.0 - Calculus of kidney Patient Instructions: The patient had an opportunity to ask questions regarding the treatment plan. All questions were answered. Physical exam, labs, and imaging were discussed and reviewed in detail. As well as risks, benefits, and discussion of treatment choices. No major barriers to understanding were identified. The patient expressed understanding and agreement with the above treatment plan. The patient was made aware they should contact our office by phone for worsening of their current condition, the appearance of new symptoms, or with any questions or concerns. Compliance is encouraged with any medications and follow up testing that is ordered. It is a privilege to be allowed the opportunity to participate in? your urological care.? Again, if you have any questions or concerns If you have any questions or concerns please do not hesitate to contact me. The office is [phone]. This note is constructed using voice recognition software. While every effort has been made to ensure accuracy watch repairer apprentice errors may have been included. Yours sincerely, ROSINA Vallejo Coding Level of Care Code Tele Est Pt Level 3 (08507) Diagnoses Bilateral renal stones N20.0
== END 2023-10-08 12:42 | disposition home or self-care (01) ==
LOC: HO.HUSH 11:35
PROVIDERS: PCP Physician Assistant; Visit Provider Nurse Practitioner Family
DX: N20.0 Calculus of kidney (principal)
CPT/HCPCS: 99442

== ENCOUNTER → 2023-10-08 11:35 | Outpatient (BNVA) | payer MEDICARE, MEDICAID, SELFPAY ==
[2023-05-04 15:23] VITALS: BP 104/68; BP 112/72; BMI 31.3
== END ==
PROVIDERS: PCP Physician Assistant; Visit Provider Nurse Practitioner Family

== ENCOUNTER → 2023-10-16 23:59 | Outpatient (BNV) | payer MEDICARE, MEDICAID, SELFPAY ==
[2023-05-04 15:23] VITALS: BP 104/68; BP 112/72; BMI 31.3
--- NOTE | 2023-10-20 15:24 | MHC.OFFVIS ---
Intake Visit Reasons: Remote ICD Check- [employer] Allergies rivaroxaban [From XARELTO] Adverse Reaction (Intermediate, Verified 10/08/23 12:14) LEG EDEMA, RASH PFSH Medical History Chronic radicular pain of lower back Chest pain Encounter for monitoring sotalol therapy Hypotension arterial Osteoporosis screening Transaminitis Heart failure with reduced ejection fraction Biventricular ICD (implantable cardioverter-defibrillator) in place Nonischemic cardiomyopathy SVT (supraventricular tachycardia) PAF (paroxysmal atrial fibrillation) HLD (hyperlipidemia) HTN (hypertension) History of cardioversion Obesity (BMI 30-39.9) Graves' disease in remission Surgical History History of radiofrequency ablation procedure for cardiac arrhythmia History of cardiac defibrillator placement Hx of cardiac catheterization (~06/2017) Hx of tubal ligation Family History Father Stroke Hypertension Mother Hypertension Diabetes Daughter AVM (arteriovenous malformation) Son No problems noted. Sister No problems noted. Brother No problems noted. Brother No problems noted. Brother No problems noted. Brother No problems noted. Social History Household Members: Significant Other Housing: House Do you presently have visiting nurse or other home services: No Alcohol intake: never Comment: moderate risk Patient Tobacco Use Status: Never used Tobacco e-Cigarette/Vaping Use: Never Used Second Hand Smoke Exposure: No service: No Current occupational status: unemployed Cognitive needs: No Hearing needs: No Vision needs: Yes Female Reproductive History Menstrual Age of Menarche: 11 Office Procedures Cardiac Device Check Cardiac Device Check Details: Remote ICD report generated 10/16/2023. ICD function is adequate. Bi V pacing 94.8% of time, somewhat suboptimal due to frequent PVCs [id number] Cardiac Interrogation, implant defibrillator w/interim Procedure code (CPT) selection complete Assessment & Plan Assessment & Plan (1) Biventricular ICD (implantable cardioverter-defibrillator) in place: Code(s): Z95.810 - Presence of automatic (implantable) cardiac defibrillator Category: Medical Plan: See above Coding Level of Care Code Procedure Only Diagnoses Biventricular ICD (implantable cardioverter-defibrillator) in place Z95.810 CPT Codes Cardiac Device Check - Cardiac Device 13: [id number] Cardiac Interrogation, implant defibrillator w/interim ([id number])
== END ==
PROVIDERS: PCP Physician Assistant; Visit Provider Internal Medicine Cardiovascular Disease
DX: Z45.02 Encounter for adjustment and management of automatic implantable cardiac defibrillator (principal)
CPT/HCPCS: 93295

== ENCOUNTER → 2023-10-16 23:59 | Outpatient (BNV) | payer MEDICARE, MEDICAID, SELFPAY ==
[2023-05-04 15:23] VITALS: BP 104/68; BP 112/72; BMI 31.3
--- NOTE | 2023-10-20 15:25 | MHC.OFFVIS ---
Intake Visit Reasons: Remote HF monitoring- Medtr[employer] Allergies rivaroxaban [From XARELTO] Adverse Reaction (Intermediate, Verified 10/08/23 12:14) LEG EDEMA, RASH PFSH Medical History Chronic radicular pain of lower back Chest pain Encounter for monitoring sotalol therapy Hypotension arterial Osteoporosis screening Transaminitis Heart failure with reduced ejection fraction Biventricular ICD (implantable cardioverter-defibrillator) in place Nonischemic cardiomyopathy SVT (supraventricular tachycardia) PAF (paroxysmal atrial fibrillation) HLD (hyperlipidemia) HTN (hypertension) History of cardioversion Obesity (BMI 30-39.9) Graves' disease in remission Surgical History History of radiofrequency ablation procedure for cardiac arrhythmia History of cardiac defibrillator placement Hx of cardiac catheterization (~06/2017) Hx of tubal ligation Family History Father Stroke Hypertension Mother Hypertension Diabetes Daughter AVM (arteriovenous malformation) Son No problems noted. Sister No problems noted. Brother No problems noted. Brother No problems noted. Brother No problems noted. Brother No problems noted. Social History Household Members: Significant Other Housing: House Do you presently have visiting nurse or other home services: No Alcohol intake: never Comment: moderate risk Patient Tobacco Use Status: Never used Tobacco e-Cigarette/Vaping Use: Never Used Second Hand Smoke Exposure: No service: No Current occupational status: unemployed Cognitive needs: No Hearing needs: No Vision needs: Yes Female Reproductive History Menstrual Age of Menarche: 11 Office Procedures Cardiac Device Check Cardiac Device Check Details: Remote heart failure report generated 10/16/2023. Heart failure parameters are stable [id number] Cardiac Interrogation, subcut cardiac rhythm monitor Procedure code (CPT) selection complete Assessment & Plan Assessment & Plan (1) Biventricular ICD (implantable cardioverter-defibrillator) in place: Code(s): Z95.810 - Presence of automatic (implantable) cardiac defibrillator Category: Medical Plan: See above Coding Level of Care Code Procedure Only Diagnoses Biventricular ICD (implantable cardioverter-defibrillator) in place Z95.810 CPT Codes Cardiac Device Check - Cardiac Device 16: [id number] Cardiac Interrogation, subcut cardiac rhythm monitor ([id number])
== END ==
PROVIDERS: PCP Physician Assistant; Visit Provider Internal Medicine Cardiovascular Disease
DX: Z45.02 Encounter for adjustment and management of automatic implantable cardiac defibrillator (principal)
CPT/HCPCS: 93297

== ENCOUNTER 2023-10-21 10:35 | Outpatient (AMB) | payer MEDICARE, MEDICAID, SELFPAY ==
[2023-05-04 15:23] VITALS: BP 104/68; BP 112/72; BMI 31.3
--- NOTE | 2023-10-21 10:36 | MHC.PC.OV ---
Vital Signs 10/21/23 10:38 Height 5 ft 9 in Weight 212 lb 2 oz BMI 31.3 BP 142/82 H Blood Pressure Location Lt brachial Position Sitting Pulse 96 Pulse Source Pulse Oximeter Pulse Oximetry (%) 98 Oxygen Delivery Method Room Air Intake Visit Reasons: rt foot eczema Intake Note: The patient is here for an itchy rash on the right foot, possibly eczema or psoriasis, which has been present for the past 5 months. Optimization Manager Required: No Accompanied by: Self / Same As Patient Allergies rivaroxaban [From XARELTO] Adverse Reaction (Intermediate, Verified 10/21/23 10:55) LEG EDEMA, RASH Medication List - Last Reconciled 10/21/23 by Jeremy Smith PA-C acetaminophen (Tylenol Extra Strength) 1,000 mg PO Q6H PRN apixaban (Eliquis) 5 mg PO BID artifi.tears(hypromellose)(PF) 0.3% 1 drp ophthalmic (eye) Q4-6H PRN blood pressure test kit-large As directed cetirizine 10 mg PO DAILY PRN ciclopirox 0.77% 1 appl topical BID 4 weeks clobetasol 0.05% 1 appl topical BID clonazepam (Klonopin) 0.5 mg PO BEDTIME PRN 30 days furosemide 40 mg PO DAILY leg brace (Knee Brace Large-XLarge) As directed pyridoxine (vitamin B6) 100 mg PO DAILY 90 days sacubitril-valsartan 24-26 mg (Entresto) 1 tab PO BID 90 days sotalol 120 mg (1.5 x 80 mg) PO BID 30 days zolpidem 5 mg PO BEDTIME PRN Tobacco use date assessed: 06/22/23 Fall risk assessment: No Falls in past year Last assessed Fall Risk: 10/21/23 Dental Screening Dental Screen Date: 06/22/23 HPI rt foot eczema HPI Details Patient is a 68-year-old female here today for problem visit. She has noted a rash over right foot over the last 5 months. She has been using antifungal cream and topical steroid creams without any significant relief. She feels that the rash on her foot has spread and is concerned. She reports this skin lesion is mostly itchy on her Achilles tendon. She does have a credit risk officer in his of upcoming appointment to discuss her foot as well. [facility] Medical History Chronic radicular pain of lower back Chest pain Encounter for monitoring sotalol therapy Hypotension arterial Osteoporosis screening Transaminitis Heart failure with reduced ejection fraction Biventricular ICD (implantable cardioverter-defibrillator) in place Nonischemic cardiomyopathy SVT (supraventricular tachycardia) PAF (paroxysmal atrial fibrillation) HLD (hyperlipidemia) HTN (hypertension) History of cardioversion Obesity (BMI 30-39.9) Graves' disease in remission Surgical History History of radiofrequency ablation procedure for cardiac arrhythmia History of cardiac defibrillator placement Hx of cardiac catheterization (~06/2017) Hx of tubal ligation Family History Father Stroke Hypertension Mother Hypertension Diabetes Daughter AVM (arteriovenous malformation) Son No problems noted. Sister No problems noted. Brother No problems noted. Brother No problems noted. Brother No problems noted. Brother No problems noted. Social History Household Members: Significant Other Housing: House Do you presently have visiting nurse or other home services: No Alcohol intake: never Comment: moderate risk Patient Tobacco Use Status: Never used Tobacco e-Cigarette/Vaping Use: Never Used Second Hand Smoke Exposure: No service: No Current occupational status: unemployed Cognitive needs: No Hearing needs: No Vision needs: Yes Female Reproductive History Menstrual Age of Menarche: 11 Questionnaire Thrive Questionnaire Date Thrive assessed: 06/22/23 GARETH-7 AMB Questionnaire GARETH-7 Date GARETH - 7 assessed: 06/22/23 Source: Developed by Drs. Maryt Hernandez, Shaylee Hernandez, Adelfo Khan and colleagues, with an educational ziggy from [employer]. Review of Systems Const Denies headache(s) Eyes Denies loss of vision ENT Denies vertigo, Denies dizziness, Denies headache(s) and Denies sore throat Card Denies chest pain, Denies leg edema and Denies lightheadedness Resp Denies cough, Denies hemoptysis and Denies wheezing GI Denies abdominal pain, Denies melena, Denies constipation, Denies diarrhea and Denies vomiting Denies urinary frequency, Denies dysuria and Denies urinary urgency Musc Denies arthralgias, Denies joint swelling, Denies numbness and Denies tingling Neuro Denies Abnormal speech present, Denies behavioral changes, Denies vertigo, Denies dizziness, Denies headache(s), Denies loss of vision, Denies memory loss, Denies numbness and Denies tingling Psych Denies anxiety, Denies behavioral changes, Denies depression, Denies memory loss and Denies panic attacks Sky/Lymph Denies easy bleeding and Denies easy bruising Aller/Immun Denies wheezing Physical exam (Primary Care) Vital Signs: Last Vital Signs Pulse 96 10/21/23 10:38 BP 142/82 H 10/21/23 10:38 Pulse Ox 98 10/21/23 10:38 Oxygen Delivery Method Room Air 10/21/23 10:38 BMI result Body Mass Index 31.3 Tobacco/Smoking Status: Tobacco use Status Tobacco use date assessed 06/22/23 10/21/23 10:38 Patient Tobacco Use Status Never used Tobacco 10/21/23 10:38 e-Cigarette/Vaping Use Never Used 10/21/23 10:38 Thrive Assessment: Date of Thrive Assessment Date Thrive assessed 06/22/23 10/21/23 10:38 Const General: healthy appearing, no acute distress, alert and awake Nutritional Appearance: well nourished Orientation/consciousness: oriented to person, oriented to place and oriented to time HENMT Ears: TM's normal bilaterally General nose exam: Normal nasal mucous membranes and turbinates present Eyes Conjunctivae: conjunctivae normal Sclerae: sclerae normal Pupils: Equal, round and reactive pupils present Neck Neck: Yes no lymphadenopathy and Yes no JVD Thyroid: Thyroid normal Carotids: no bruits Resp Effort & Inspection: normal respiratory effort and not tachypneic Auscultation: no crackles, no rales, no rhonchi and no wheezes Cardio Rate: regular rate Rhythm: regular rhythm Heart sounds: no murmurs and normal S1 and S2 GI Palpation (GI): Soft to palpation, nontender, no hepatomegaly and no splenomegaly Auscultation: normal bowel sounds Skin General skin exam: dry skin Neuro General: oriented to person, oriented to place and oriented to time Cranial nerves: Yes Equal, round and reactive pupils present Speech: No Abnormal speech present Gait exam (Neuro): Normal gait present Motor exam (neuro): no tremor noted Extrem Right upper extremity: full ROM Left upper extremity: full ROM Right lower extremity: full ROM; no edema Left lower extremity: full ROM; no edema Ankle/foot/toe images: 1. SLIGHTLY ERYTHEMATOUS DRY QUALITY RASH OVER THE PLANTAR ASPECT OF THE RIGHT FOOT. Psych Mental Status: mental status grossly normal Speech and movement: Normal speech and movement present Affect: normal affect Attitude: cooperative Thought process: Normal thought process present Assessment and Plan Assessment & Plan (1) Dermatitis: Code(s): L30.9 - Dermatitis, unspecified Plan: Patient continues to rash over her right foot and heel. Has been using antifungal and topical steroid without significant relief. It appears to be a tinea pedis. Advised on vinegar soaks and keeping her foot nice dry. Advised to change socks and shoe wear. She will follow up with a credit risk officer as well. Will supply patient with new antifungal cream nystatin. (2) Foot callus: Code(s): L84 - Corns and callosities Medications: New nystatin 1 appl topical DAILY 30 grams 1RF 30 days B35.3 - Tinea pedis, L30.9 - Dermatitis, unspecified clonazepam administer 30 minutes before bedtime 0.5 mg PO BEDTIME 14 tabs 1RF 14 days F41.1 - Generalized anxiety disorder Refilled ciclopirox 0.77% 1 appl topical BID 30 grams 1RF 4 weeks B35.3 - Tinea pedis Discontinued clonazepam (Klonopin) administer 30 minutes before bedtime Discontinued Reason: Doctor's Order 0.5 mg PO BEDTIME 30 days PRN 30 tabs 0RF Sleep F41.1 - Generalized anxiety disorder Coding Level of Care Code Est Pt Level 3 (44723) Diagnoses Dermatitis L30.9 Foot callus L84
[2023-10-21 10:38] VITALS: BP 142/82; PULSE 96; O2SAT 98; BMI 31.3
== END 2023-10-21 11:13 | disposition home or self-care (01) ==
PROVIDERS: PCP Physician Assistant; Visit Provider Physician Assistant
DX: L30.9 Dermatitis, unspecified (principal); L84 Corns and callosities
CPT/HCPCS: 99213

== ENCOUNTER 2023-11-09 10:01 | Outpatient (REF) | payer MEDICARE, MEDICAID, SELFPAY ==
[2023-05-04 15:23] VITALS: BP 104/68; BP 112/72; BMI 31.3
--- NOTE | ~2023-11-09 | MM_ITS ---
EXAMINATION: BONE DENSITOMETRY CLINICAL INDICATION: Asymptomatic menopausal state. COMPARISON: Previous BD dated 11/07/2021 and baseline BD dated 09/26/2007. TECHNIQUE: Using a [employer] DXA System (software version: 13.1) manufactured by [employer], dual-energy x-ray absorptiometry was performed of the lumbar spine and left hip. The images are of good technical quality. Summary results are attached. FINDINGS: LEFT FEMUR, NECK: Current: BMD 1.178 g/cm2, Z-score 2.0, T-score 1.0, normal. Prior: BMD 1.215 g/cm2. Baseline: BMD 0.309 g/cm2. LEFT FEMUR, TOTAL: Current: BMD 1.239 g/cm2, Z-score 2.5, T-score 1.8, normal, 1.9% decrease from previous, 11.3% decrease from baseline (<5% change is not significant). Prior: BMD 1.263 g/cm2. Baseline: BMD 1.397 g/cm2. AP SPINE L1-L3 (excluding L4): The data of L1-L4 has been changed to exclude the L4 vertebral body, because degenerative changes at this level may cause overestimation of lumbar spine density. Current: BMD 1.470 g/cm2, Z-score 3.1, T-score 2.5, normal, 1.4% increase from previous, 5.4% decrease from baseline (<5% change is not significant). Prior: BMD 1.450 g/cm2. Baseline: BMD 1.554 g/cm2. IDENTIFIED RISK FACTORS: Menopause. HISTORY OF FRACTURE: None listed. MEDICATIONS: None listed. MM/XR DEXA axial skeleton IMPRESSION: 1. DIAGNOSIS: Normal bone density based on the lowest T-score value of 1.0 in the femoral neck applying World Health Organization criteria. 2. 10-YEAR FRACTURE RISK PREDICTION, FRAX: According to the guidelines, FRAX calculation should only be performed on patients in the osteopenia bone density category. Therefore, FRAX was not performed on this patient. 3. Treatment Recommendations: NOF guidelines recommend consideration for treatment in postmenopausal women and men age 50 and older presenting with the following: -A hip or vertebral (clinical or morphometric) fracture. -T-score less than or equal to -2.5 at the femoral neck or spine after appropriate evaluation to exclude secondary causes. -Low bone mass at the hip or spine and a 10-year fracture probability by FRAX of greater than or equal to 3% for hip fracture or greater than or equal to 20% for major osteoporotic fracture based on the [place] adapted WHO algorithm. 4. Other Recommendations: All treatment decisions require clinical judgment and consideration of individual patient factors, including patient preferences, comorbidities, previous drug use, risk factors not captured in the FRAX model (e.g. frailty, falls, vitamin D deficiency, increased bone turnover, interval significant decline in bone density) and possible under or overestimation of fracture risk by FRAX. FUTURE SCAN RECOMMENDATION: People with diagnosed cases of osteoporosis or at high risk for fracture should have regular bone mineral density tests. For patients eligible for Medicare, routine testing is allowed once every 2 years. The testing frequency can be increased to one year for patients who have rapidly progressing disease, those who are receiving or discontinuing medical therapy to restore bone mass, or have additional risk factors. Electronically signed by: Gregory Montemayor MD 11/16/2023 01:36 PM EDT
== END 2023-11-09 10:02 | disposition home or self-care (01) ==
LOC: HO.MAMMO 10:01
PROVIDERS: PCP Physician Assistant; Visit Provider Obstetrics & Gynecology
DX: Z13.820 Encounter for screening for osteoporosis (principal); Z78.0 Asymptomatic menopausal state
CPT/HCPCS: 77080

== ENCOUNTER → 2023-11-16 23:59 | Outpatient (BNV) | payer MEDICARE, MEDICAID, SELFPAY ==
[2023-05-04 15:23] VITALS: BP 104/68; BP 112/72; BMI 31.3
--- NOTE | 2023-11-17 11:53 | MHC.OFFVIS ---
Intake Visit Reasons: Remote HF monitoring- [employer] Allergies rivaroxaban [From XARELTO] Adverse Reaction (Intermediate, Verified 10/21/23 10:55) LEG EDEMA, RASH PFSH Medical History Chronic radicular pain of lower back Chest pain Encounter for monitoring sotalol therapy Hypotension arterial Osteoporosis screening Transaminitis Heart failure with reduced ejection fraction Biventricular ICD (implantable cardioverter-defibrillator) in place Nonischemic cardiomyopathy SVT (supraventricular tachycardia) PAF (paroxysmal atrial fibrillation) HLD (hyperlipidemia) HTN (hypertension) History of cardioversion Obesity (BMI 30-39.9) Graves' disease in remission Surgical History History of radiofrequency ablation procedure for cardiac arrhythmia History of cardiac defibrillator placement Hx of cardiac catheterization (~06/2017) Hx of tubal ligation Family History Father Stroke Hypertension Mother Hypertension Diabetes Daughter AVM (arteriovenous malformation) Son No problems noted. Sister No problems noted. Brother No problems noted. Brother No problems noted. Brother No problems noted. Brother No problems noted. Social History Household Members: Significant Other Housing: House Do you presently have visiting nurse or other home services: No Alcohol intake: never Comment: moderate risk Patient Tobacco Use Status: Never used Tobacco e-Cigarette/Vaping Use: Never Used Second Hand Smoke Exposure: No service: No Current occupational status: unemployed Cognitive needs: No Hearing needs: No Vision needs: Yes Female Reproductive History Menstrual Age of Menarche: 11 Office Procedures Cardiac Device Check Cardiac Device Check Details: Remote heart failure report generated 11/16/2023. Heart failure parameters are stable [id number] Cardiac Device Interrogation, cardio physiologic monitor Procedure code (CPT) selection complete Assessment & Plan Assessment & Plan (1) Biventricular ICD (implantable cardioverter-defibrillator) in place: Code(s): Z95.810 - Presence of automatic (implantable) cardiac defibrillator Category: Medical Plan: See above Coding Level of Care Code Procedure Only Diagnoses Biventricular ICD (implantable cardioverter-defibrillator) in place Z95.810 CPT Codes Cardiac Device Check - Cardiac Device 15: [id number] Cardiac Device Interrogation, cardio physiologic monitor ([id number])
== END ==
PROVIDERS: PCP Physician Assistant; Visit Provider Internal Medicine Cardiovascular Disease
DX: Z45.02 Encounter for adjustment and management of automatic implantable cardiac defibrillator (principal)
CPT/HCPCS: 93297

== ENCOUNTER → 2023-12-17 23:59 | Outpatient (BNV) | payer MEDICARE, MEDICAID, SELFPAY ==
[2023-05-04 15:23] VITALS: BP 104/68; BP 112/72; BMI 31.3
--- NOTE | 2023-12-29 15:38 | MHC.OFFVIS ---
Intake Visit Reasons: Remote HF monitoring- [employer] Allergies rivaroxaban [From XARELTO] Adverse Reaction (Intermediate, Verified 12/23/23 11:34) LEG EDEMA, RASH PFSH Medical History Chronic radicular pain of lower back Chest pain Encounter for monitoring sotalol therapy Hypotension arterial Osteoporosis screening Transaminitis Heart failure with reduced ejection fraction Biventricular ICD (implantable cardioverter-defibrillator) in place Nonischemic cardiomyopathy SVT (supraventricular tachycardia) PAF (paroxysmal atrial fibrillation) HLD (hyperlipidemia) HTN (hypertension) History of cardioversion Obesity (BMI 30-39.9) Graves' disease in remission Surgical History History of radiofrequency ablation procedure for cardiac arrhythmia History of cardiac defibrillator placement Hx of cardiac catheterization (~06/2017) Hx of tubal ligation Family History Father Stroke Hypertension Mother Hypertension Diabetes Daughter AVM (arteriovenous malformation) Son No problems noted. Sister No problems noted. Brother No problems noted. Brother No problems noted. Brother No problems noted. Brother No problems noted. Social History Household Members: Significant Other Housing: House Do you presently have visiting nurse or other home services: No Alcohol intake: never Comment: moderate risk Patient Tobacco Use Status: Never used Tobacco e-Cigarette/Vaping Use: Never Used Second Hand Smoke Exposure: No service: No Current occupational status: unemployed Cognitive needs: No Hearing needs: No Vision needs: Yes Female Reproductive History Menstrual Age of Menarche: 11 Office Procedures Cardiac Device Check Cardiac Device Check Details: Remote heart failure report generated 12/17/2023. I was requested to read this study today. Heart failure markers are within normal limits [id number] Cardiac Interrogation, subcut cardiac rhythm monitor Procedure code (CPT) selection complete Assessment & Plan Assessment & Plan (1) Heart failure with reduced ejection fraction: Code(s): I50.20 - Unspecified systolic (congestive) heart failure Category: Medical Plan: See above Coding Level of Care Code Procedure Only Diagnoses Heart failure with reduced ejection fraction I50.20 CPT Codes Cardiac Device Check - Cardiac Device 16: [id number] Cardiac Interrogation, subcut cardiac rhythm monitor ([id number])
== END ==
PROVIDERS: PCP Physician Assistant; Visit Provider Internal Medicine Cardiovascular Disease
DX: I50.20 Unspecified systolic (congestive) heart failure (principal)
CPT/HCPCS: 93298

== ENCOUNTER 2023-12-23 10:58 | Outpatient (AMB) | payer MEDICARE, MEDICAID, SELFPAY ==
[2023-05-04 15:23] VITALS: BP 104/68; BP 112/72; BMI 31.3
--- NOTE | 2023-12-23 11:17 | A.OFFPC_ITS ---
Vital Signs 12/23/23 11:24 Height 5 ft 9 in Weight 211 lb 8 oz BMI 31.2 BP 130/82 Blood Pressure Location Lt brachial Position Sitting Pulse 95 Pulse Source Pulse Oximeter Pulse Oximetry (%) 100 Oxygen Delivery Method Room Air Intake Visit Reasons: 6mth f/u Budget Counselor Required: No Accompanied by: Self / Same As Patient Allergies rivaroxaban [From XARELTO] Adverse Reaction (Intermediate, Verified 12/23/23 11:34) LEG EDEMA, RASH Medication List - Last Reconciled 12/23/23 by Jeremy Smith PA-C acetaminophen (Tylenol Extra Strength) 1,000 mg PO Q6H PRN apixaban (Eliquis) 5 mg PO BID artifi.tears(hypromellose)(PF) 0.3% 1 drp ophthalmic (eye) Q4-6H PRN blood pressure test kit-large As directed cetirizine 10 mg PO DAILY PRN ciclopirox 0.77% 1 appl topical BID 4 weeks clobetasol 0.05% 1 appl topical BID clonazepam 0.5 mg PO BEDTIME 14 days furosemide 40 mg PO DAILY leg brace (Knee Brace Large-XLarge) As directed nystatin 1 appl topical DAILY 30 days pyridoxine (vitamin B6) 100 mg PO DAILY 90 days sacubitril-valsartan 24-26 mg (Entresto) 1 tab PO BID 90 days sotalol 120 mg (1.5 x 80 mg) PO BID 30 days zolpidem 5 mg PO BEDTIME PRN Tobacco use date assessed: 06/22/23 Fall risk assessment: No Falls in past year Last assessed Fall Risk: 12/23/23 Dental Screening Dental Screen Date: 06/22/23 HPI 6mth f/u HPI Details Patient is a 68-year-old female here today for a follow-up visit..? Patient has a past medical history significant for paroxysmal AFib, congestive heart failure with reduced ejection fraction, implantable defibrillator, SVT, hypertension, fibromyalgia, ? Anxiety Graves disease, obesity. Concern-> she reports she continues to have some depression due to recent in her family. She has lost follow-up with her psychiatrist and can not make an appointment. She is willing to start up low-dose SSRI therapy to help her with her mood and depression. p-AFIB/ presence of implanted defibrillator : Patient is followed by Cardiology and has been euvolemic and without any further shortness of breath.? Did have cardio ablation in 2019. She continues on Eliquis 5 mg b.i.d. without any significant overt signs of bleeding. Her defibrillator regularly gets checked by her oil spot washer. .. Congestive heart failure with reduced ejection fraction: Has not had any exacerbations recently. Continues to follow cardiology. Noted most recent liver enzymes slightly elevated in April of 2022, will recheck at earliest convenience per .. ?anxiety:? Still suffers with anxiety though has been managed well with p.r.n. use clonazepam and talking to her therapist. Laboratory Tests 08/04/23 08:46 [place] Cockroach I gE 0.50 H PFS Medical History Chronic radicular pain of lower back Chest pain Encounter for monitoring sotalol therapy Hypotension arterial Osteoporosis screening Transaminitis Heart failure with reduced ejection fraction Biventricular ICD (implantable cardioverter-defibrillator) in place Nonischemic cardiomyopathy SVT (supraventricular tachycardia) PAF (paroxysmal atrial fibrillation) HLD (hyperlipidemia) HTN (hypertension) History of cardioversion Obesity (BMI 30-39.9) Graves' disease in remission Surgical History History of radiofrequency ablation procedure for cardiac arrhythmia History of cardiac defibrillator placement Hx of cardiac catheterization (~06/2017) Hx of tubal ligation Family History Father Stroke Hypertension Mother Hypertension Diabetes Daughter AVM (arteriovenous malformation) Son No problems noted. Sister No problems noted. Brother No problems noted. Brother No problems noted. Brother No problems noted. Brother No problems noted. Social History Household Members: Significant Other Housing: House Do you presently have visiting nurse or other home services: No Alcohol intake: never Comment: moderate risk Patient Tobacco Use Status: Never used Tobacco e-Cigarette/Vaping Use: Never Used Second Hand Smoke Exposure: No service: No Current occupational status: unemployed Cognitive needs: No Hearing needs: No Vision needs: Yes Female Reproductive History Menstrual Age of Menarche: 11 Questionnaire Thrive Questionnaire Date Thrive assessed: 06/22/23 GARETH-7 AMB Questionnaire GARETH-7 Date GARETH - 7 assessed: 06/22/23 Source: Developed by Drs. Marty Hernandez, Shaylee Hernandez, Adelfo Khan and colleagues, with an educational ziggy from [employer]. Review of Systems Const Denies headache(s) Eyes Denies loss of vision ENT Denies vertigo, Denies dizziness, Denies headache(s) and Denies sore throat Card Denies chest pain, Denies leg edema and Denies lightheadedness Resp Denies cough, Denies hemoptysis and Denies wheezing GI Denies abdominal pain, Denies melena, Denies constipation, Denies diarrhea and Denies vomiting Denies urinary frequency, Denies dysuria and Denies urinary urgency Musc Denies arthralgias, Denies joint swelling, Denies numbness and Denies tingling Neuro Denies Abnormal speech present, Denies behavioral changes, Denies vertigo, Denies dizziness, Denies headache(s), Denies loss of vision, Denies memory loss, Denies numbness and Denies tingling Psych Denies anxiety, Denies behavioral changes, Denies depression, Denies memory loss and Denies panic attacks Sky/Lymph Denies easy bleeding and Denies easy bruising Aller/Immun Denies wheezing Physical exam (Primary Care) Vital Signs: Last Vital Signs Pulse 95 12/23/23 11:24 BP 130/82 12/23/23 11:24 Pulse Ox 100 12/23/23 11:24 Oxygen Delivery Method Room Air 12/23/23 11:24 BMI result Body Mass Index 31.2 Tobacco/Smoking Status: Tobacco use Status Tobacco use date assessed 06/22/23 12/23/23 11:17 Patient Tobacco Use Status Never used Tobacco 12/23/23 11:17 e-Cigarette/Vaping Use Never Used 12/23/23 11:17 Thrive Assessment: Date of Thrive Assessment Date Thrive assessed 06/22/23 12/23/23 11:17 Const General: healthy appearing, no acute distress, alert and awake Nutritional Appearance: well nourished Orientation/consciousness: oriented to person, oriented to place and oriented to time HENMT Ears: TM's normal bilaterally General nose exam: Normal nasal mucous membranes and turbinates present Eyes Conjunctivae: conjunctivae normal Sclerae: sclerae normal Pupils: Equal, round and reactive pupils present Neck Neck: Yes no lymphadenopathy and Yes no JVD Thyroid: Thyroid normal Carotids: no bruits Resp Effort & Inspection: normal respiratory effort and not tachypneic Auscultation: no crackles, no rales, no rhonchi and no wheezes Cardio Rate: regular rate Rhythm: regular rhythm Heart sounds: no murmurs and normal S1 and S2 GI Palpation (GI): Soft to palpation, nontender, no hepatomegaly and no splenomegaly Auscultation: normal bowel sounds Skin General skin exam: no rashes or lesions noted and dry skin Neuro General: oriented to person, oriented to place and oriented to time Cranial nerves: Yes Equal, round and reactive pupils present Speech: No Abnormal speech present Gait exam (Neuro): Normal gait present Motor exam (neuro): no tremor noted Extrem Right upper extremity: full ROM Left upper extremity: full ROM Right lower extremity: full ROM; no edema Left lower extremity: full ROM; no edema Psych Mental Status: mental status grossly normal Speech and movement: Normal speech and movement present Affect: normal affect Attitude: cooperative Thought process: Normal thought process present Office Procedures Flu Questionnaire Does the patient have a severe egg allergy?: No Does the patient have severe life threatening allergies?: No Does the patient have a fever or illness today?: No Has the patient ever had Guillain-Vernon Syndrome?: No Has the patient ever had any past reaction to a flu shot?: No Immunizations Fluarix Triv [id number] (PF) 45 mcg (15 mcg x 3)/0.5 mL IM syringe Performing Provider: Jeremy Smith PA-C [place] [facility] [place] [facility] Administered by: DEVORA Jose on 12/23/23 11:48 Dose Route Admin Location Dispensed Lot Number Expiration Date [facility] Machine Cloth Examiner 0.5 mL IM Left Deltoid 0.5 mL [id number] 08/07/24 [id number] ArchiveSocial VIS Given Date VIS Provided VIS Publication Date 12/23/23 Single Vaccine 20 Eligibility Eligibility Date Funding Source Not [facility] Eligible 12/23/23 Private Coding Level of Care Code Est Pt Level 4 (36301) Diagnoses Mild depression F32.0 Essential hypertension I10 Hypertension type: essential hypertension Grief reaction F43.21 Nonischemic cardiomyopathy I42.8 SVT (supraventricular tachycardia) I47.1 Heart failure with reduced ejection fraction I50.20 Assessment & Plan Assessment & Plan (1) Mild depression: Code(s): F32.0 - Major depressive disorder, single episode, mild Category: Medical Plan: As per HPI patient has been suffering with grief and some depression. She does use clonazepam for her mental health on as needed basis though still is depressed. She had a few deaths in her family over the past year which has been the trigger. She will benefit from cognitive behavioral therapy Also will start up low-dose SSRI therapy (2) HTN (hypertension): Code(s): I10 - Essential (primary) hypertension Category: Medical Qualifiers: Hypertension type: essential hypertension Qualified Code(s): I10 - Essential (primary) hypertension Plan: Patient's blood pressure acceptable today in office. Will continue her current dose of antihypertensive medication. Goal blood pressure to remain below 140/90 (3) Grief reaction: Code(s): F43.21 - Adjustment disorder with depressed mood Category: Medical Plan: As above (4) Nonischemic cardiomyopathy: Code(s): I42.8 - Other cardiomyopathies Category: Medical Plan: Patient continues to follow [facility]. She does an ICD the gets checked regularly by her oil spot washer. No overt signs of heart failure noted recently (5) SVT (supraventricular tachycardia): Code(s): I47.1 - Supraventricular tachycardia Category: Medical Plan: Continues with sotalol with good effect on her rates. (6) Heart failure with reduced ejection fraction: Code(s): I50.20 - Unspecified systolic (congestive) heart failure Category: Medical Plan: No overt signs of decompensated heart failure. Continues on Entresto and furosemide. Orders: Orders Influenza [id number] Immunization Today Z23 - Encounter for immunization Referrals Counseling Referral F32.0 - Major depressive disorder, single episode, mild Medications: New sertraline (Zoloft) 25 mg PO DAILY 90 tabs 1RF 90 days F32.0 - Major depressive disorder, single episode, mild
[2023-12-23 11:24] VITALS: BP 130/82; PULSE 95; O2SAT 100; BMI 31.2
== END 2023-12-23 11:48 | disposition home or self-care (01) ==
PROVIDERS: PCP Physician Assistant; Visit Provider Physician Assistant
DX: I50.20 Unspecified systolic (congestive) heart failure (principal); F32.0 Major depressive disorder, single episode, mild; I42.8 Other cardiomyopathies; I47.10 Supraventricular tachycardia, unspecified; F43.21 Adjustment disorder with depressed mood; I10 Essential (primary) hypertension

== ENCOUNTER → 2023-12-23 10:58 | Outpatient (BNVA) | payer MEDICARE, MEDICAID, SELFPAY ==
[2023-05-04 15:23] VITALS: BP 104/68; BP 112/72; BMI 31.3
== END ==
PROVIDERS: PCP Physician Assistant; Visit Provider Physician Assistant
DX: Z23 Encounter for immunization (principal); F32.0 Major depressive disorder, single episode, mild; F43.21 Adjustment disorder with depressed mood; I42.8 Other cardiomyopathies; I47.10 Supraventricular tachycardia, unspecified; I11.0 Hypertensive heart disease with heart failure; I50.20 Unspecified systolic (congestive) heart failure
CPT/HCPCS: 90471; 90656; 99212

== ENCOUNTER 2023-12-27 09:09 | Outpatient (REF) | payer MEDICARE, MEDICAID, SELFPAY ==
[2023-05-04 15:23] VITALS: BP 104/68; BP 112/72; BMI 31.3
[2023-12-27 09:38] LABS: Hematocrit 38.2 % (37.0-47.0); Hemoglobin 12.6 g/dl (12.0-16.0); Mean Corpuscular Hemoglobin 29.4 pg (27.0-33.0); Mean Corpuscular Volume 89.3 fL (80.0-98.0); Platelet Count 208 X10*3/uL (160-400); Red Blood Count 4.28 X10*6/uL (4.20-5.50); Red Cell Distribution Width 13.2 % (11.0-16.0); White Blood Count 7.6 X10*3/uL (4.8-10.8)
[2023-12-27 09:44] LABS: Estimated Average Glucose 108 mg/dL; Hemoglobin A1c % 5.4 % (<6.0)
[2023-12-27 10:25] LABS: Alanine Aminotransferase 22 U/L (0-31); Albumin Level 4.1 g/dL (3.5-5.0); Alkaline Phosphatase 96 U/L (39-117); Anion Gap 9 (12-20); Aspartate Amino Transferase 23 U/L (5-31); Bilirubin Total 0.6 mg/dL (0.0-1.0); Blood Urea Nitrogen 12 mg/dL (9-16); Calcium 9.4 mg/dL (8.4-10.2); Carbon Dioxide 31 mmol/L (22-29); Chloride 106 mmol/L (96-108); Cholesterol 197 mg/dL (<200); Estimated Glomerular Filt Rate > 60; Glucose Fasting 107 mg/dL (60-99); HDL Cholesterol 51 mg/dL (>40); LDL Cholesterol Calculated 122 mg/dL (<100); Potassium 3.9 mmol/L (3.3-5.1); Sodium 142 mmol/L (135-145); Triglycerides 122 mg/dL (<150)
== END 2023-12-27 09:10 | disposition home or self-care (01) ==
LOC: HO.LAB 09:09
PROVIDERS: PCP Physician Assistant; Visit Provider Physician Assistant
DX: Z13.89 Encounter for screening for other disorder (principal)
CPT/HCPCS: 36415; 80053; 80061; 83036; 85027

== ENCOUNTER → 2023-12-27 10:44 | Outpatient (REF) | payer MEDICARE, MEDICAID, SELFPAY ==
[2023-05-04 15:23] VITALS: BP 104/68; BP 112/72; BMI 31.3
--- NOTE | 2023-12-27 10:47 | CA_ITS ---
Transthoracic Echocardiogram Patient (Last, First, Middle): Iliana Vigil E Gender: Female Date of : 1955 Age: 68 Procedure Date: 12/27/2023 Procedure Type: Transthoracic Echocardiogram Location: OP Height: 175.26 cm Weight: 95.71 kg BSA: 2.11 m2 Heart Rate: bpm BP: 132 / 76 mmHg Grazing Aide: JESSICA Referring MD: Andres Bruno MD Symptoms: I50.20 - Unspecified systolic (congestive) heart failure Study Quality: Fair, contrast Conclusions: - 1. Moderately dilated left ventricle with low normal LV ejection fraction of 50-55% with grade 2 diastolic dysfunction 2. Moderately dilated left atrium 3. Mild mitral regurgitation 4. Normal RV systolic pressure 5. Mildly dilated ascending aorta at 3.7 cm 6. No gross pericardial effusion Findings Procedure Information Contrast agent, definity, is being given per protocol without apparent complications. Left Ventricle The left ventricle was not well visualized. Moderately increased left ventricular cavity size. There is normal left ventricular wall thickness. The left ventricular systolic function is low normal. The visually estimated ejection fraction is between 50-55%. Spectral Doppler is indicative of a pseudonormal filling pattern. E/E prime ratio is >15, consistent with elevated filling pressures. Evidence suggests grade II (moderate) diastolic dysfunction. Right Ventricle The right ventricle was not well visualized. There is an ICD wire seen in the right ventricle. Atria The left atrium is moderately dilated. Interatrial shunt cannot be excluded. The right atrium was not well visualized. Aortic Valve The aortic valve was not well visualized. There is no aortic valve stenosis. There is no aortic valve regurgitation. Mitral Valve There is mild anterior and moderate posterior mitral leaflet thickening. There is mild mitral valve regurgitation. There is no mitral valve stenosis. Pulmonic Valve The pulmonic valve was not well visualized. Tricuspid Valve Likely normal tricuspid valve structure and function. There is mild tricuspid valve regurgitation. The right ventricular systolic pressure is normal. The right ventricular systolic pressure is 28 mmHg. Normal right atrial pressure. There is no evidence of pulmonary hypertension. Great Vessels The aorta was not well visualized. The pulmonary artery was not well visualized. There is mild dilatation of the ascending aorta measuring 3.70 cm. Venous The inferior vena cava is normal in size and collapses greater than 50% with inspiration. Pericardium/Pleural There is no evidence of pericardial effusion. Prior Study Comparison Changes noted compared to prior study dated: 10/27/2022. LV systolic function has improved Measurements 2D Linear Measurements IVSd: 1.07 0.6-0.9/0.6-1.0 cm LVIDd: 6.52 3.9-5.3/4.2-5.9 cm LVIDd Index: 3.09 2.4-3.2/2.2-3.1 cm/m2 LVIDs: 5.18 2.0-3.6 cm LVPWd: 0.81 0.7-1.1 cm LA Diam: 4.50 2.7-3.8/3.0-4.0 cm LAIDs Index: 2.13 1.5-2.3 cm/m2 LV Mass: 328.38 67-162/88-224 g LV Mass Index: 155.63 43-95/49-115 g/m2 LVOT Diam: 2.10 3.0+(-)1.3 cm 2D Systolic Function EF 4C: 50.70 >55% EF 2C: 55.80 >55% EF BiP: 52.90 >55% Mitral Valve MV VTI: 0.36 MV Pk Abel: 1.43 MV Mn Abel: 0.79 MV Pk Grad: 8.00 MV Mn Grad: 3.00 MV Pk E: 1.34 MV PK A: 0.83 MV Decel Time: 226.00 E/A: 1.60 E'Lateral: 5.98 E'Medial: 4.57 E/E' Med: 29.30 E/E' Lat: 22.40 PHT: 66.00 MVA PHT: 3.33 MVA Continuity: 2.00 Decel [place]: 5.94 MR VTI: 1.93 Aortic Valve AoV Pk Abel: 1.54 AoV Mn Abel: 0.97 AoV VTI: 0.31 AoV Pk Grad: 9.00 Aov Mn Grad: 4.00 YADY Cont.VTI: 2.31 LVOT LVOT Pk Abel: 0.98 LVOT Mn Abel: 0.69 LVOT VTI: 0.21 LVOT Pk Grad: 4.00 LVOT Mn Grad: 2.00 LVOT Diam: 2.10 LVOT Area: 3.46 Diastolic Function MV Pk E: 1.34 MV Pk A: 0.83 E/A: 1.60 E'Medial: 4.57 E/E' Med: 29.30 E' Laterial: 5.98 E/E' Lat: 22.40 Right Ventricle TAPSE (mm): 30.60 TVS' Abel: 14.40 Tricuspid Valve TR Pk Abel: 2.49 TR Pk Grad: 25.00 RA Press: 3.00 RVSP: 28.00 Great Vessels Aorta Sinus of Valsalva: 3.40 2.0-3.[address] [place]: 2.31 1.7-3.4 cm Ao Asc: 3.70 2.1-3.4 cm Updated in Other Vendor System with Status of Final Andres Bruno MD electronically signed on 12/27/2023 5:27:35 PM with status of Final
== END ==
LOC: HO.CARD 10:44
PROVIDERS: PCP Physician Assistant; Visit Provider Internal Medicine Cardiovascular Disease
DX: I50.20 Unspecified systolic (congestive) heart failure (principal)
CPT/HCPCS: 36415; 80053; 80061; 83036; 85027; 93306; Q9957

== ENCOUNTER → 2023-12-27 10:47 | Outpatient (BNV) | payer MEDICARE, MEDICAID, SELFPAY ==
[2023-05-04 15:23] VITALS: BP 104/68; BP 112/72; BMI 31.3
== END ==
PROVIDERS: PCP Physician Assistant; Visit Provider Internal Medicine Cardiovascular Disease
DX: I34.0 Nonrheumatic mitral (valve) insufficiency (principal); I36.1 Nonrheumatic tricuspid (valve) insufficiency; I50.20 Unspecified systolic (congestive) heart failure
CPT/HCPCS: 93306

== ENCOUNTER 2024-01-03 09:54 | Outpatient (AMB) | payer MEDICARE, MEDICAID, SELFPAY ==
[2023-05-04 15:23] VITALS: BP 104/68; BP 112/72; BMI 31.3
--- NOTE | 2024-01-03 09:58 | A.OFFVIS_ITS ---
Vital Signs 01/03/24 09:59 Height 5 ft 9 in Weight 213 lb 13.574 oz BMI 31.6 BP 124/80 Blood Pressure Location Lt brachial Position Sitting Pulse 82 Intake Visit Reasons: 6 mth w/ medtronic ck and ekg Intake Note: 6 month follow-up with MEdtronic and ekg Medical Assistant Float Required: No Allergies rivaroxaban [From XARELTO] Adverse Reaction (Intermediate, Verified 12/23/23 11:34) LEG EDEMA, RASH Medication List - Last Reconciled 01/03/24 by Andres Bruno MD acetaminophen (Tylenol Extra Strength) 1,000 mg PO Q6H PRN apixaban (Eliquis) 5 mg PO BID artifi.tears(hypromellose)(PF) 0.3% 1 drp ophthalmic (eye) Q4-6H PRN blood pressure test kit-large As directed cetirizine 10 mg PO DAILY PRN ciclopirox 0.77% 1 appl topical BID 4 weeks clobetasol 0.05% 1 appl topical BID clonazepam 0.5 mg PO BEDTIME 14 days furosemide 40 mg PO DAILY leg brace (Knee Brace Large-XLarge) As directed nystatin 1 appl topical DAILY 30 days pyridoxine (vitamin B6) 100 mg PO DAILY 90 days sacubitril-valsartan 24-26 mg (Entresto) 1 tab PO BID 90 days sertraline (Zoloft) 25 mg PO DAILY 90 days sotalol 120 mg (1.5 x 80 mg) PO BID 30 days zolpidem 5 mg PO BEDTIME PRN HPI Comments Details: Iliana comes for follow-up. No recent hospitalization related to heart failure. Overall she is doing well. Does not exercise regularly. Denies any prolonged palpitation irregular heartbeat. No lightheadedness, syncope. No bleeding issues or neurologic events. No exertional worsening shortness of breath. No orthopnea, PND, leg edema. No chest pain. Still has some discomfort at the ICD site. Her recent echocardiogram showed low normal LV ejection fraction 50-55% with moderate left atrial enlargement with upper limits of normal ascending aortic size [facility] Medical History Heart failure with reduced ejection fraction Chronic radicular pain of lower back Chest pain Encounter for monitoring sotalol therapy Hypotension arterial Osteoporosis screening Transaminitis Biventricular ICD (implantable cardioverter-defibrillator) in place Nonischemic cardiomyopathy SVT (supraventricular tachycardia) PAF (paroxysmal atrial fibrillation) HLD (hyperlipidemia) HTN (hypertension) History of cardioversion Obesity (BMI 30-39.9) Graves' disease in remission Surgical History History of radiofrequency ablation procedure for cardiac arrhythmia History of cardiac defibrillator placement Hx of cardiac catheterization (~06/2017) Hx of tubal ligation Family History Father Stroke Hypertension Mother Hypertension Diabetes Daughter AVM (arteriovenous malformation) Son No problems noted. Sister No problems noted. Brother No problems noted. Brother No problems noted. Brother No problems noted. Brother No problems noted. Social History Household Members: Significant Other Housing: House Do you presently have visiting nurse or other home services: No Alcohol intake: never Comment: moderate risk Patient Tobacco Use Status: Never used Tobacco e-Cigarette/Vaping Use: Never Used Second Hand Smoke Exposure: No service: No Current occupational status: unemployed Cognitive needs: No Hearing needs: No Vision needs: Yes Female Reproductive History Menstrual Age of Menarche: 11 Review of Systems Const Denies chills, Denies fatigue, Denies fever(s), Denies frequent falls, Denies weakness, Denies weight gain and Denies weight loss ENT Denies dizziness Card Denies chest pain, Denies leg edema, Denies lightheadedness, Denies palpitations, Denies dyspnea, Denies dyspnea on exertion, Denies orthopnea and Denies other (loss of consciousness) Resp Denies cough, Denies dyspnea and Denies dyspnea on exertion GI Denies hematochezia and Denies change in stool character Musc Denies abnormal gait, Denies muscle weakness, Denies numbness, Denies radiating pain into limb and Denies tingling Neuro Denies abnormal gait, Denies dizziness, Denies frequent falls, Denies numbness, Denies tingling and Denies weakness Endo Denies fatigue and Denies palpitations Physical Exam Vital Signs: Last Vital Signs Pulse 82 01/03/24 09:59 BP 124/80 01/03/24 09:59 BMI result Body Mass Index 31.6 Const General: cooperative, healthy appearing, comfortable and no acute distress Orientation/consciousness: patient oriented x3 Neck Neck: Yes normal visual inspection and Yes no JVD Carotids: normal carotid upstroke Chest Chest palpation & inspection: normal inspection of the chest Resp Effort & Inspection: normal respiratory effort Auscultation: clear to auscultation bilaterally, no crackles, no rales, no rhonchi and no wheezes Cardio Jugular venous distension: no JVD Rate: regular rate Rhythm: regular rhythm Heart sounds: S1 normal heart sound present, S2 normal heart sound present, no murmurs and no rubs Neuro General: patient oriented x3 Extrem General: Yes normal to inspection, No no pedal edema and No calf tenderness Psych Appearance: grossly normal Mental Status: mental status grossly normal Speech and movement: Normal speech and movement present Office Procedures Cardiac Device Check Cardiac Device Check Details: Biventricular Medtronic ICD in place. Programmed in DDDR at 70 beats per minute. Atrial pacing 71% of time. Biventricular pacing 95% of the time. Frequent PACs PVCs noted. No prolonged episodes of atrial fibrillation noted. Atrial and ventricular sensing is adequate. Atrial and biventricular pacing thresholds adequate and reprogrammed to enhance battery life. Pacing and shock lead impedance is stable. Battery life is about 3 years. [id number] Cardiac Device Check, multi lead implantable defibrillator Procedure code (CPT) selection complete EKG Details: EKG shows normal sinus rhythm with low amplitude P waves either suggestive atrial myopathy or ectopic atrial rhythm with Bi V pacing [id number], Complete Assessment & Plan Assessment & Plan (1) Heart failure with improved ejection fraction (HFimpEF): Code(s): I50.32 - Chronic diastolic (congestive) heart failure Category: Medical Plan: Heart failure with improved ejection fraction on current medical therapy. No hospitalization related to heart failure in the recent time. Continue current neurohormonal modulation with sotalol as well as Entresto therapy. Clinically has remained euvolemic and well compensated. Continue current diuretic dose with Lasix. Daily weight monitoring avoidance salt loading was discussed. Continue rhythm control approach. She has overall done well and this was discussed with her. Importance of regular physical activity and weight loss program was discussed with her. (2) PAF (paroxysmal atrial fibrillation): Code(s): I48.0 - Paroxysmal atrial fibrillation Category: Medical Plan: Paroxysmal atrial fibrillation has remained suppressed on sotalol therapy status post ablation. Has done very well with rhythm control approach will continue pursue rhythm control approach. Continue sotalol therapy. Avoidance of stimulants was discussed. Continue full oral anticoagulation, currently on Eliquis 5 mg b.i.d.. Semi annual renal function test should be pursued. Will continue monitor by pacer telemetry. (3) Biventricular ICD (implantable cardioverter-defibrillator) in place: Code(s): Z95.810 - Presence of automatic (implantable) cardiac defibrillator Category: Medical Plan: Biventricular ICD in place for heart failure with reduced ejection fraction with left bundle-branch block. Clinically doing well and working well. Will follow remotely monthly for heart failure as well as every 3 months for device check. Follow up in the clinic in 6 months time, sooner p.r.n.. Thank you for allowing me to partake in his care Coding Level of Care Code Est Pt Level 4 (96207) Complex EM visit Add On G2211 Diagnoses Heart failure with improved ejection fraction (HFimpEF) I50.32 PAF (paroxysmal atrial fibrillation) I48.0 Biventricular ICD (implantable cardioverter-defibrillator) in place Z95.810 CPT Codes Cardiac Device Check - Cardiac Device 6: [id number] Cardiac Device Check, multi lead implantable defibrillator ([id number]) EKG - CPT: 20399-[id number], Complete ([id number])
[2024-01-03 09:59] VITALS: BP 124/80; PULSE 82; BMI 31.6
== END 2024-01-03 10:17 | disposition home or self-care (01) ==
PROVIDERS: PCP Physician Assistant; Visit Provider Internal Medicine Cardiovascular Disease
DX: I50.32 Chronic diastolic (congestive) heart failure (principal); I48.0 Paroxysmal atrial fibrillation; Z95.810 Presence of automatic (implantable) cardiac defibrillator
CPT/HCPCS: 93010; 93284; 99214; G2211

== ENCOUNTER → 2024-01-03 09:54 | Outpatient (BNVA) | payer MEDICARE, MEDICAID, SELFPAY ==
[2023-05-04 15:23] VITALS: BP 104/68; BP 112/72; BMI 31.3
== END ==
PROVIDERS: PCP Physician Assistant; Visit Provider Internal Medicine Cardiovascular Disease
DX: Z45.02 Encounter for adjustment and management of automatic implantable cardiac defibrillator (principal); I50.32 Chronic diastolic (congestive) heart failure; I48.0 Paroxysmal atrial fibrillation
CPT/HCPCS: 93005; 99212

== ENCOUNTER → 2024-01-17 23:59 | Outpatient (BNV) | payer MEDICARE, MEDICAID, SELFPAY ==
[2023-05-04 15:23] VITALS: BP 104/68; BP 112/72; BMI 31.3
--- NOTE | 2024-01-19 15:19 | MHC.OFFVIS ---
Intake Visit Reasons: Remote ICD check-Medtronic Allergies rivaroxaban [From XARELTO] Adverse Reaction (Intermediate, Verified 12/23/23 11:34) LEG EDEMA, RASH PFSH Medical History Heart failure with reduced ejection fraction Chronic radicular pain of lower back Chest pain Encounter for monitoring sotalol therapy Hypotension arterial Osteoporosis screening Transaminitis Biventricular ICD (implantable cardioverter-defibrillator) in place Nonischemic cardiomyopathy SVT (supraventricular tachycardia) PAF (paroxysmal atrial fibrillation) HLD (hyperlipidemia) HTN (hypertension) History of cardioversion Obesity (BMI 30-39.9) Graves' disease in remission Surgical History History of radiofrequency ablation procedure for cardiac arrhythmia History of cardiac defibrillator placement Hx of cardiac catheterization (~06/2017) Hx of tubal ligation Family History Father Stroke Hypertension Mother Hypertension Diabetes Daughter AVM (arteriovenous malformation) Son No problems noted. Sister No problems noted. Brother No problems noted. Brother No problems noted. Brother No problems noted. Brother No problems noted. Social History Household Members: Significant Other Housing: House Do you presently have visiting nurse or other home services: No Alcohol intake: never Comment: moderate risk Patient Tobacco Use Status: Never used Tobacco e-Cigarette/Vaping Use: Never Used Second Hand Smoke Exposure: No service: No Current occupational status: unemployed Cognitive needs: No Hearing needs: No Vision needs: Yes Female Reproductive History Menstrual Age of Menarche: 11 Office Procedures Cardiac Device Check Cardiac Device Check Details: Remote ICD report generated 01/17/2024. ICD function is adequate. Biventricular pacing 92.8% of time, most likely due to frequent PVCs [id number] Cardiac Interrogation, implant defibrillator w/interim Procedure code (CPT) selection complete Assessment & Plan Assessment & Plan (1) Biventricular ICD (implantable cardioverter-defibrillator) in place: Code(s): Z95.810 - Presence of automatic (implantable) cardiac defibrillator Category: Medical Plan: See above Coding Level of Care Code Procedure Only Diagnoses Biventricular ICD (implantable cardioverter-defibrillator) in place Z95.810 CPT Codes Cardiac Device Check - Cardiac Device 13: [id number] Cardiac Interrogation, implant defibrillator w/interim ([id number])
== END ==
PROVIDERS: PCP Physician Assistant; Visit Provider Internal Medicine Cardiovascular Disease
DX: Z95.810 Presence of automatic (implantable) cardiac defibrillator (principal)
CPT/HCPCS: 93295

== ENCOUNTER 2024-01-26 09:47 | Outpatient (AMB) | payer MEDICARE, MEDICAID, SELFPAY ==
[2023-05-04 15:23] VITALS: BP 104/68; BP 112/72; BMI 31.3
[2024-01-26 10:27] VITALS: BMI 31.5
--- NOTE | 2024-01-26 10:27 | MHC.OFFVIS ---
Vital Signs 01/26/24 10:27 Height 5 ft 9 in Weight 213 lb BMI 31.5 Intake Visit Reasons: DEXA follow up Allergies rivaroxaban [From XARELTO] Adverse Reaction (Intermediate, Verified 12/23/23 11:34) LEG EDEMA, RASH HPI Comments Details: Presenting for DEXA scan follow-up which showed the following: LEFT FEMUR, NECK: Current: BMD 1.178 g/cm2, Z-score 2.0, T-score 1.0, normal. Prior: BMD 1.215 g/cm2. Baseline: BMD 0.309 g/cm2. LEFT FEMUR, TOTAL: Current: BMD 1.239 g/cm2, Z-score 2.5, T-score 1.8, normal, 1.9% decrease from previous, 11.3% decrease from baseline (<5% change is not significant). Prior: BMD 1.263 g/cm2. Baseline: BMD 1.397 g/cm2. AP SPINE L1-L3 (excluding L4): The data of L1-L4 has been changed to exclude the L4 vertebral body, because degenerative changes at this level may cause overestimation of lumbar spine density. Current: BMD 1.470 g/cm2, Z-score 3.1, T-score 2.5, normal, 1.4% increase from previous, 5.4% decrease from baseline (<5% change is not significant). Prior: BMD 1.450 g/cm2. Baseline: BMD 1.554 g/cm2. COUNT INCLUDES THE [facility] Medical History Heart failure with reduced ejection fraction Chronic radicular pain of lower back Chest pain Encounter for monitoring sotalol therapy Hypotension arterial Osteoporosis screening Transaminitis Biventricular ICD (implantable cardioverter-defibrillator) in place Nonischemic cardiomyopathy SVT (supraventricular tachycardia) PAF (paroxysmal atrial fibrillation) HLD (hyperlipidemia) HTN (hypertension) History of cardioversion Obesity (BMI 30-39.9) Graves' disease in remission Surgical History History of radiofrequency ablation procedure for cardiac arrhythmia History of cardiac defibrillator placement Hx of cardiac catheterization (~06/2017) Hx of tubal ligation Family History Father Stroke Hypertension Mother Hypertension Diabetes Daughter AVM (arteriovenous malformation) Son No problems noted. Sister No problems noted. Brother No problems noted. Brother No problems noted. Brother No problems noted. Brother No problems noted. Social History Household Members: Significant Other Housing: House Do you presently have visiting nurse or other home services: No Alcohol intake: never Comment: moderate risk Patient Tobacco Use Status: Never used Tobacco e-Cigarette/Vaping Use: Never Used Second Hand Smoke Exposure: No service: No Current occupational status: unemployed Cognitive needs: No Hearing needs: No Vision needs: Yes Female Reproductive History Menstrual Age of Menarche: 11 Review of Systems Const All systems reviewed & are unremarkable except as noted in HPI and below Reports as per HPI and Reports no additional complaints GI Reports no additional complaints Reports no additional complaints Physical Exam Vital Signs: BMI result Body Mass Index 31.5 Assessment & Plan Assessment & Plan (1) Menopause: Code(s): Z78.0 - Asymptomatic menopausal state Category: Medical Plan: Discussed with the patient the DEXA results which showed no evidence of osteoporosis. Discussed with the patient all the options for osteoporosis prevention including lifestyle modifications including Ca+D supplements 1200 mg po qd/800 MIU, Weight bearing exercises and proteine supplements. The patient verbalized understanding and agreed plan will repeat DEXA in 2 years. Coding Level of Care Code Est Pt Level 3 (05850) Diagnoses Menopause Z78.0
== END 2024-01-26 10:55 | disposition home or self-care (01) ==
LOC: HO.HWS 09:47
PROVIDERS: PCP Physician Assistant; Visit Provider Obstetrics & Gynecology
DX: Z78.0 Asymptomatic menopausal state (principal)
CPT/HCPCS: 99213

== ENCOUNTER → 2024-01-26 09:47 | Outpatient (BNVA) | payer MEDICARE, MEDICAID, SELFPAY ==
[2023-05-04 15:23] VITALS: BP 104/68; BP 112/72; BMI 31.3
== END ==
PROVIDERS: PCP Physician Assistant; Visit Provider Obstetrics & Gynecology
DX: Z78.0 Asymptomatic menopausal state (principal)
CPT/HCPCS: 99212

== ENCOUNTER → 2024-02-16 23:59 | Outpatient (BNV) | payer MEDICARE, MEDICAID, SELFPAY ==
[2023-05-04 15:23] VITALS: BP 104/68; BP 112/72; BMI 31.3
--- NOTE | 2024-02-22 14:10 | A.OFFVIS_ITS ---
Intake Visit Reasons: Remote HF monitoring- Medtronic Allergies rivaroxaban [From XARELTO] Adverse Reaction (Intermediate, Verified 12/23/23 11:34) LEG EDEMA, RASH PFSH Medical History Heart failure with reduced ejection fraction Chronic radicular pain of lower back Chest pain Encounter for monitoring sotalol therapy Hypotension arterial Osteoporosis screening Transaminitis Biventricular ICD (implantable cardioverter-defibrillator) in place Nonischemic cardiomyopathy SVT (supraventricular tachycardia) PAF (paroxysmal atrial fibrillation) HLD (hyperlipidemia) HTN (hypertension) History of cardioversion Obesity (BMI 30-39.9) Graves' disease in remission Surgical History History of radiofrequency ablation procedure for cardiac arrhythmia History of cardiac defibrillator placement Hx of cardiac catheterization (~06/2017) Hx of tubal ligation Family History Father Stroke Hypertension Mother Hypertension Diabetes Daughter AVM (arteriovenous malformation) Son No problems noted. Sister No problems noted. Brother No problems noted. Brother No problems noted. Brother No problems noted. Brother No problems noted. Social History Household Members: Significant Other Housing: House Do you presently have visiting nurse or other home services: No Alcohol intake: never Comment: moderate risk Patient Tobacco Use Status: Never used Tobacco e-Cigarette/Vaping Use: Never Used Second Hand Smoke Exposure: No service: No Current occupational status: unemployed Cognitive needs: No Hearing needs: No Vision needs: Yes Female Reproductive History Menstrual Age of Menarche: 11 Office Procedures Cardiac Device Check Cardiac Device Check Details: Remote heart failure report generated 02/16/2024. Heart failure parameters are stable [id number] Cardiac Device Interrogation, cardio physiologic monitor Procedure code (CPT) selection complete Assessment & Plan Assessment & Plan (1) Biventricular ICD (implantable cardioverter-defibrillator) in place: Code(s): Z95.810 - Presence of automatic (implantable) cardiac defibrillator Category: Medical Plan: See above Coding Level of Care Code Procedure Only Diagnoses Biventricular ICD (implantable cardioverter-defibrillator) in place Z95.810 CPT Codes Cardiac Device Check - Cardiac Device 15: [id number] Cardiac Device Inte rrogation, cardio physiologic monitor ([id number])
== END ==
PROVIDERS: PCP Physician Assistant; Visit Provider Internal Medicine Cardiovascular Disease
DX: Z45.02 Encounter for adjustment and management of automatic implantable cardiac defibrillator (principal)
CPT/HCPCS: 93297

== ENCOUNTER → 2024-03-17 23:59 | Outpatient (BNV) | payer MEDICARE, MEDICAID, SELFPAY ==
[2023-05-04 15:23] VITALS: BP 104/68; BP 112/72; BMI 31.3
--- NOTE | 2024-03-20 11:00 | A.OFFVIS_ITS ---
Intake Visit Reasons: Remote HF monitoring- Medtronic Allergies rivaroxaban [From XARELTO] Adverse Reaction (Intermediate, Verified 12/23/23 11:34) LEG EDEMA, RASH PFSH Medical History Heart failure with reduced ejection fraction Chronic radicular pain of lower back Chest pain Encounter for monitoring sotalol therapy Hypotension arterial Osteoporosis screening Transaminitis Biventricular ICD (implantable cardioverter-defibrillator) in place Nonischemic cardiomyopathy SVT (supraventricular tachycardia) PAF (paroxysmal atrial fibrillation) HLD (hyperlipidemia) HTN (hypertension) History of cardioversion Obesity (BMI 30-39.9) Graves' disease in remission Surgical History History of radiofrequency ablation procedure for cardiac arrhythmia History of cardiac defibrillator placement Hx of cardiac catheterization (~06/2017) Hx of tubal ligation Family History Father Stroke Hypertension Mother Hypertension Diabetes Daughter AVM (arteriovenous malformation) Son No problems noted. Sister No problems noted. Brother No problems noted. Brother No problems noted. Brother No problems noted. Brother No problems noted. Social History Household Members: Significant Other Housing: House Do you presently have visiting nurse or other home services: No Alcohol intake: never Comment: moderate risk Patient Tobacco Use Status: Never used Tobacco e-Cigarette/Vaping Use: Never Used Second Hand Smoke Exposure: No service: No Current occupational status: unemployed Cognitive needs: No Hearing needs: No Vision needs: Yes Female Reproductive History Menstrual Age of Menarche: 11 Office Procedures Cardiac Device Check Cardiac Device Check Details: Remote heart failure report generated 03/17/2024. Heart failure parameters are stable [id number] Cardiac Device Interrogation, cardio physiologic monitor Procedure code (CPT) selection complete Assessment & Plan Assessment & Plan (1) Biventricular ICD (implantable cardioverter-defibrillator) in place: Code(s): Z95.810 - Presence of automatic (implantable) cardiac defibrillator Category: Medical Plan: See above Coding Level of Care Code Procedure Only Diagnoses Biventricular ICD (implantable cardioverter-defibrillator) in place Z95.810 CPT Codes Cardiac Device Check - Cardiac Device 15: [id number] Cardiac Device Inte rrogation, cardio physiologic monitor ([id number])
== END ==
PROVIDERS: PCP Physician Assistant; Visit Provider Internal Medicine Cardiovascular Disease
DX: Z45.02 Encounter for adjustment and management of automatic implantable cardiac defibrillator (principal)
CPT/HCPCS: 93297

== ENCOUNTER → 2024-04-12 23:59 | Outpatient (BNV) | payer MEDICARE, MEDICAID, SELFPAY ==
[2023-05-04 15:23] VITALS: BP 104/68; BP 112/72; BMI 31.3
--- NOTE | 2024-04-18 15:20 | MHC.OFFVIS ---
Intake Visit Reasons: Remote ICD check-[employer] Allergies rivaroxaban [From XARELTO] Adverse Reaction (Intermediate, Verified 12/23/23 11:34) LEG EDEMA, RASH PFSH Medical History Heart failure with reduced ejection fraction Chronic radicular pain of lower back Chest pain Encounter for monitoring sotalol therapy Hypotension arterial Osteoporosis screening Transaminitis Biventricular ICD (implantable cardioverter-defibrillator) in place Nonischemic cardiomyopathy SVT (supraventricular tachycardia) PAF (paroxysmal atrial fibrillation) HLD (hyperlipidemia) HTN (hypertension) History of cardioversion Obesity (BMI 30-39.9) Graves' disease in remission Surgical History History of radiofrequency ablation procedure for cardiac arrhythmia History of cardiac defibrillator placement Hx of cardiac catheterization (~06/2017) Hx of tubal ligation Family History Father Stroke Hypertension Mother Hypertension Diabetes Daughter AVM (arteriovenous malformation) Son No problems noted. Sister No problems noted. Brother No problems noted. Brother No problems noted. Brother No problems noted. Brother No problems noted. Social History Household Members: Significant Other Housing: House Do you presently have visiting nurse or other home services: No Alcohol intake: never Comment: moderate risk Patient Tobacco Use Status: Never used Tobacco e-Cigarette/Vaping Use: Never Used Second Hand Smoke Exposure: No service: No Current occupational status: unemployed Cognitive needs: No Hearing needs: No Vision needs: Yes Female Reproductive History Menstrual Age of Menarche: 11 Office Procedures Cardiac Device Check Cardiac Device Check Details: Remote ICD report generated 04/14/2024. ICD function is adequate. Biventricular pacing 95.6% of time, has improved compared to her prior pacing [id number] Cardiac Interrogation, implant defibrillator w/interim Procedure code (CPT) selection complete Assessment & Plan Assessment & Plan (1) Biventricular ICD (implantable cardioverter-defibrillator) in place: Code(s): Z95.810 - Presence of automatic (implantable) cardiac defibrillator Category: Medical Plan: See above Coding Level of Care Code Procedure Only Diagnoses Biventricular ICD (implantable cardioverter-defibrillator) in place Z95.810 CPT Codes Cardiac Device Check - Cardiac Device 13: 95292-[id number] Cardiac Interrogation, implant defibrillator w/interim ([id number])
== END ==
PROVIDERS: PCP Physician Assistant; Visit Provider Internal Medicine Cardiovascular Disease
DX: Z45.02 Encounter for adjustment and management of automatic implantable cardiac defibrillator (principal)
CPT/HCPCS: 93295

== ENCOUNTER → 2024-04-12 23:59 | Outpatient (BNV) | payer MEDICARE, MEDICAID, SELFPAY ==
[2023-05-04 15:23] VITALS: BP 104/68; BP 112/72; BMI 31.3
--- NOTE | 2024-04-18 15:19 | A.OFFVIS_ITS ---
Intake Visit Reasons: Remote HF monitoring- Medtronic Allergies rivaroxaban [From XARELTO] Adverse Reaction (Intermediate, Verified 12/23/23 11:34) LEG EDEMA, RASH PFSH Medical History Heart failure with reduced ejection fraction Chronic radicular pain of lower back Chest pain Encounter for monitoring sotalol therapy Hypotension arterial Osteoporosis screening Transaminitis Biventricular ICD (implantable cardioverter-defibrillator) in place Nonischemic cardiomyopathy SVT (supraventricular tachycardia) PAF (paroxysmal atrial fibrillation) HLD (hyperlipidemia) HTN (hypertension) History of cardioversion Obesity (BMI 30-39.9) Graves' disease in remission Surgical History History of radiofrequency ablation procedure for cardiac arrhythmia History of cardiac defibrillator placement Hx of cardiac catheterization (~06/2017) Hx of tubal ligation Family History Father Stroke Hypertension Mother Hypertension Diabetes Daughter AVM (arteriovenous malformation) Son No problems noted. Sister No problems noted. Brother No problems noted. Brother No problems noted. Brother No problems noted. Brother No problems noted. Social History Household Members: Significant Other Housing: House Do you presently have visiting nurse or other home services: No Alcohol intake: never Comment: moderate risk Patient Tobacco Use Status: Never used Tobacco e-Cigarette/Vaping Use: Never Used Second Hand Smoke Exposure: No service: No Current occupational status: unemployed Cognitive needs: No Hearing needs: No Vision needs: Yes Female Reproductive History Menstrual Age of Menarche: 11 Office Procedures Cardiac Device Check Cardiac Device Check Details: Remote heart failure report generated 04/12/2024. Heart failure parameters are stable [id number] Cardiac Device Interrogation, cardio physiologic monitor Procedure code (CPT) selection complete Assessment & Plan Assessment & Plan (1) Biventricular ICD (implantable cardioverter-defibrillator) in place: Code(s): Z95.810 - Presence of automatic (implantable) cardiac defibrillator Category: Medical Plan: See above Coding Level of Care Code Procedure Only Diagnoses Biventricular ICD (implantable cardioverter-defibrillator) in place Z95.810 CPT Codes Cardiac Device Check - Cardiac Device 15: [id number] Cardiac Device Inte rrogation, cardio physiologic monitor ([id number])
== END ==
PROVIDERS: PCP Physician Assistant; Visit Provider Internal Medicine Cardiovascular Disease
DX: Z45.02 Encounter for adjustment and management of automatic implantable cardiac defibrillator (principal)
CPT/HCPCS: 93297

== ENCOUNTER 2024-04-14 14:19 | Outpatient (REF) | payer MEDICARE, MEDICAID, SELFPAY ==
[2023-05-04 15:23] VITALS: BP 104/68; BP 112/72; BMI 31.3
--- NOTE | ~2024-04-14 | US_ITS ---
CLINICAL HISTORY: N20.0 - Calculus of kidney US RENAL Comparison: None Findings: Right kidney measures 12 cm in length. Mild fullness of the renal pelvis. No hydronephrosis. There are 1.1 cm and 2 mm echogenic foci suggesting calculi. No cortical mass lesion. Left kidney measures 12.3 cm in length. Mild fullness of the renal pelvis. No hydronephrosis or calculus. There is a 1.1 cm midpole cortical cyst. IMPRESSION: 1. Mild pelviectasis bilaterally. No lake hydronephrosis. 2. Nonobstructing right nephrolithiasis. 3. Small left renal cyst. This document has been electronically signed by: Irene Lerner DO on 04/17/2024 13:49:08
== END 2024-04-14 14:20 | disposition home or self-care (01) ==
LOC: HO.US 14:19
PROVIDERS: PCP Physician Assistant; Visit Provider Nurse Practitioner Family
DX: N20.0 Calculus of kidney (principal)
CPT/HCPCS: 76775

== ENCOUNTER → 2024-04-14 14:21 | Outpatient (BNV) | payer MEDICARE, MEDICAID, SELFPAY ==
[2023-05-04 15:23] VITALS: BP 104/68; BP 112/72; BMI 31.3
== END ==
PROVIDERS: PCP Physician Assistant; Visit Provider Radiology Diagnostic Radiology
DX: N20.0 Calculus of kidney (principal); N28.1 Cyst of kidney, acquired
CPT/HCPCS: 76775

== ENCOUNTER 2024-05-08 09:32 | Outpatient (AMB) | payer MEDICARE, MEDICAID, SELFPAY ==
[2023-05-04 15:23] VITALS: BP 104/68; BP 112/72; BMI 31.3
--- NOTE | 2024-05-08 09:39 | A.OFFVIS_ITS ---
Intake Visit Reasons: 6m/US(set) Intake Note: Patient presents today for established treatment of : Renal Stones and ultrasound results Imaging Completed: 04/17/24 Urology Medications: vitamin B6 Allergies to Antibiotic: None Blood Thinner: None User Experience Developer Required: No Accompanied by: Self / Same As Patient Allergies rivaroxaban [From XARELTO] Adverse Reaction (Intermediate, Verified 05/08/24 10:13) LEG EDEMA, RASH Medication List - Last Reviewed 05/08/24 by Nancy He acetaminophen (Tylenol Extra Strength) 1,000 mg PO Q6H PRN apixaban (Eliquis) 5 mg PO BID artifi.tears(hypromellose)(PF) 0.3% 1 drp ophthalmic (eye) Q4-6H PRN blood pressure test kit-large As directed cetirizine 10 mg PO DAILY PRN clonazepam 0.5 mg PO BEDTIME 14 days furosemide 40 mg PO DAILY leg brace (Knee Brace Large-XLarge) As directed pyridoxine (vitamin B6) 100 mg PO DAILY 90 days sacubitril-valsartan 24-26 mg (Entresto) 1 tab PO BID 90 days sotalol 120 mg (1.5 x 80 mg) PO BID 30 days HPI Comments Details: Iliana is a pleasant 68 year old female patient of Dr. Smith. She has a past medical history of heart failure with reduced ejection fracture, biventricular ICD in place, nonischemic cardiomyopathy, SVT, paroxysmal AFib, hyperlipidemia, hypertension, and Graves disease in remission. She presents to the office today for follow-up of her nephrolithiasis. In discussion with the patient today she reports to be doing and feeling well. She denies having had any bothersome urological issues or concerns since her last visit. She discusses her main concern is her cardiac issues as well as her blood pressure. Recent renal ultrasound results reviewed with the patient today 05/02 bilateral kidneys with no hydronephrosis. 1.1 cm and 2 mm echogenic focus suggestive of renal calculi in the right side. No left-sided nephrolithiasis. We discussed further intervention to include surveillance monitoring verses ureteroscopy verses ESWL. She reports having followed up with her dust control engineer regarding clearance for potential nephrolithiasis procedure. She would like to continue with surveillance monitoring. She denies any bothersome urinary issues or concerns. She denies urinary urgency, urinary frequency, incontinence, nocturia, hematuria, dysuria, foul smelling urine, changes to urinary stream, flank pain, fever, and or chills. She is happy with her current voiding parameters. In office urinalysis results reviewed with the patient today. When asked she reports compliance with vitamin B6 and drinking plenty of water daily. She otherwise offers no other issues or concerns at this time. Patient was informed and verbally consented to the use of an ambient scribe for clinic note documentation during this visit. Discussion Notes During this visit, I discussed the management of the patient's nephrolithiasis, discussing surgical intervention versus surveillance monitoring. Given the patient's cardiac history, awaiting dust control engineer Dr. Degroot's clearance is prudent. The patient?s concerns regarding anesthesia were acknowledged, with reassurance provided through planned preoperative evaluation. Risk factors for surgery were quantifiably noted, with alternatives and follow-up logistics thoroughly explained. [facility] Medical History Heart failure with reduced ejection fraction Chronic radicular pain of lower back Chest pain Encounter for monitoring sotalol therapy Hypotension arterial Osteoporosis screening Transaminitis Biventricular ICD (implantable cardioverter-defibrillator) in place Nonischemic cardiomyopathy SVT (supraventricular tachycardia) PAF (paroxysmal atrial fibrillation) HLD (hyperlipidemia) HTN (hypertension) History of cardioversion Obesity (BMI 30-39.9) Graves' disease in remission Surgical History History of radiofrequency ablation procedure for cardiac arrhythmia History of cardiac defibrillator placement Hx of cardiac catheterization (~06/2017) Hx of tubal ligation Family History Father Stroke Hypertension Mother Hypertension Diabetes Daughter AVM (arteriovenous malformation) Son No problems noted. Sister No problems noted. Brother No problems noted. Brother No problems noted. Brother No problems noted. Brother No problems noted. Social History Household Members: Significant Other Housing: House Do you presently have visiting nurse or other home services: No Alcohol intake: never Comment: moderate risk Patient Tobacco Use Status: Never used Tobacco e-Cigarette/Vaping Use: Never Used Second Hand Smoke Exposure: No service: No Current occupational status: unemployed Cognitive needs: No Hearing needs: No Vision needs: Yes Female Reproductive History Menstrual Age of Menarche: 11 Review of Systems Const Reports as per HPI Eyes Reports no additional complaints ENT Reports no additional complaints Card Reports as per HPI Resp Reports no additional complaints GI Reports no additional complaints Reports as per HPI Musc Reports no additional complaints Psych Reports no additional complaints Endo Reports as per HPI Sky/Lymph Reports no additional complaints Aller/Immun Reports no additional complaints Physical Exam Const General: cooperative, healthy appearing, comfortable, no acute distress, well developed, alert and awake Orientation/consciousness: patient oriented x3 Limitations: no limitations HEENT Head: Yes normal to inspection, Yes normocephalic and Yes atraumatic Ears: hearing grossly normal bilaterally Eyes General: appearance normal, both eyes and all related structures Neck Neck: Yes normal visual inspection and Yes trachea midline Chest Chest palpation & inspection: normal inspection of the chest Resp Effort & Inspection: normal respiratory effort and able to speak in complete sentences Cardio Rate: regular rate GI Inspection: Yes normal to inspection General: Yes no CVA tenderness Back/Spine/Pelvis Back: no CVA tenderness Skin General skin exam: no rashes or lesions noted Neuro General: patient oriented x3 Extrem General: Yes normal to inspection Psych Appearance: grossly normal and well kempt Mental Status: mental status grossly normal Speech and movement: Normal speech and movement present and Clear speech present Affect: normal affect Attitude: cooperative Thought process: Normal thought process present Thought content: Normal thought content present Insight: Good insight present (Psych) Judgement: Good judgement present (Psych) Results AMB Urinalysis, Automated UA Leukoctes 125 Renee/uL Last Edit by [employer] Systemsjailene He on 05/08/24 10:24 UA Nitrite Negative Last Edit by Embarr Downs Ying on 05/08/24 10:24 UA Urobilinogen 0.2 mg/dL Last Edit by Brandjuliana He on 05/08/24 10:24 UA Protein 0 mg/dL Last Edit by Nancy He on 05/08/24 10:24 UA pH 7.0 Last Edit by Nancy He on 05/08/24 10:24 UA Blood 0 García/uL Last Edit by Nancy He on 05/08/24 10:24 UA Specific Hobbs 1.005 Last Edit by Nancy He on 05/08/24 10:24 UA Ketone Last Edit by Nancy He on 05/08/24 10:24 UA Bilirubin 0 mg/dL Last Edit by Nancy He on 05/08/24 10:24 UA Glucose 0 mg/dL Last Edit by Nancy He on 05/08/24 10:24 Results Reviewed Results Reviewed: Date of Service: 04/14/24 Procedure(s): US renal BI Findings: Right kidney measures 12 cm in length. Mild fullness of the renal pelvis. No hydronephrosis. There are 1.1 cm and 2 mm echogenic foci suggesting calculi. No cortical mass lesion. Left kidney measures 12.3 cm in length. Mild fullness of the renal pelvis. No hydronephrosis or calculus. There is a 1.1 cm midpole cortical cyst. IMPRESSION: 1. Mild pelviectasis bilaterally. No lake hydronephrosis. 2. Nonobstructing right nephrolithiasis. 3. Small left renal cyst. Assessment & Plan Assessment & Plan (1) Bilateral renal stones: Code(s): N20.0 - Calculus of kidney Category: Medical Plan Discussed nephrolithiasis as well as surgical intervention for nephrolithiasis. All questions were answered. Patient would like to move forward with surveillance monitoring at this time. She currently denies any bothersome urinary issues or concerns. She reports be happy with current voiding parameters. Will obtain renal ultrasound in 6 months. Follow-up in 6 months with imaging to be completed prior; or sooner with any issues, concerns, and or questions. Patient Instructions: The patient had an opportunity to ask questions regarding the treatment plan. All questions were answered. Physical exam, labs, and imaging were discussed and reviewed in detail. As well as risks, benefits, and discussion of treatment choices. No major barriers to understanding were identified. The patient expressed understanding and agreement with the above treatment plan. The patient was made aware they should contact our office by phone for worsening of their current condition, the appearance of new symptoms, or with any questions or concerns. Compliance is encouraged with any medications and follow up testing that is ordered. It is a privilege to be allowed the opportunity to participate in? your urological care.? Again, if you have any questions or concerns If you have any questions or concerns please do not hesitate to contact me. The office is [phone]. This note is constructed using voice recognition software. While every effort has been made to ensure accuracy design editor errors may have been included. Yours sincerely, ROSINA Vallejo Coding Level of Care Code Est Pt Level 3 (10089) Complex EM visit Add On G2211 Diagnoses Bilateral renal stones N20.0
== END 2024-05-08 10:12 | disposition home or self-care (01) ==
LOC: HO.HUSH 09:33
PROVIDERS: PCP Physician Assistant; Visit Provider Nurse Practitioner Family
DX: N20.0 Calculus of kidney (principal); Z13.9 Encounter for screening, unspecified
CPT/HCPCS: 99213; G2211

== ENCOUNTER → 2024-05-08 09:32 | Outpatient (BNVA) | payer MEDICARE, MEDICAID, SELFPAY ==
[2023-05-04 15:23] VITALS: BP 104/68; BP 112/72; BMI 31.3
== END ==
PROVIDERS: PCP Physician Assistant; Visit Provider Nurse Practitioner Family
DX: N20.0 Calculus of kidney (principal)
CPT/HCPCS: 81003; 99212

== ENCOUNTER → 2024-05-18 23:59 | Outpatient (BNV) | payer MEDICARE, MEDICAID, SELFPAY ==
[2023-05-04 15:23] VITALS: BP 104/68; BP 112/72; BMI 31.3
--- NOTE | 2024-05-31 13:45 | MHC.OFFVIS ---
Intake Visit Reasons: Remote HF monitoring- [employer] Allergies rivaroxaban [From XARELTO] Adverse Reaction (Intermediate, Verified 05/25/24 14:06) LEG EDEMA, RASH PFSH Medical History Heart failure with reduced ejection fraction Chronic radicular pain of lower back Chest pain Encounter for monitoring sotalol therapy Hypotension arterial Osteoporosis screening Transaminitis Biventricular ICD (implantable cardioverter-defibrillator) in place Nonischemic cardiomyopathy SVT (supraventricular tachycardia) PAF (paroxysmal atrial fibrillation) HLD (hyperlipidemia) HTN (hypertension) History of cardioversion Obesity (BMI 30-39.9) Graves' disease in remission Surgical History History of radiofrequency ablation procedure for cardiac arrhythmia History of cardiac defibrillator placement Hx of cardiac catheterization (~06/2017) Hx of tubal ligation Family History Father Stroke Hypertension Mother Hypertension Diabetes Daughter AVM (arteriovenous malformation) Son No problems noted. Sister No problems noted. Brother No problems noted. Brother No problems noted. Brother No problems noted. Brother No problems noted. Social History Household Members: Significant Other Housing: House Do you presently have visiting nurse or other home services: No Alcohol intake: never Comment: moderate risk Patient Tobacco Use Status: Never used Tobacco e-Cigarette/Vaping Use: Never Used Second Hand Smoke Exposure: No service: No Current occupational status: unemployed Cognitive needs: No Hearing needs: No Vision needs: Yes Female Reproductive History Menstrual Age of Menarche: 11 Office Procedures Cardiac Device Check Cardiac Device Check Details: Remote heart failure report generated 05/18/2024. Heart failure parameters are stable [id number] Cardiac Device Interrogation, cardio physiologic monitor Procedure code (CPT) selection complete Assessment & Plan Assessment & Plan (1) Biventricular ICD (implantable cardioverter-defibrillator) in place: Code(s): Z95.810 - Presence of automatic (implantable) cardiac defibrillator Category: Medical Plan: See above Coding Level of Care Code Procedure Only Diagnoses Biventricular ICD (implantable cardioverter-defibrillator) in place Z95.810 CPT Codes Cardiac Device Check - Cardiac Device 15: [id number] Cardiac Device Interrogation, cardio physiologic monitor ([id number])
== END ==
PROVIDERS: PCP Physician Assistant; Visit Provider Internal Medicine Cardiovascular Disease
DX: Z45.02 Encounter for adjustment and management of automatic implantable cardiac defibrillator (principal)
CPT/HCPCS: 93297

== ENCOUNTER 2024-05-25 13:39 | Outpatient (AMB) | payer MEDICARE, MEDICAID, SELFPAY ==
[2023-05-04 15:23] VITALS: BP 104/68; BP 112/72; BMI 31.3
--- NOTE | 2024-05-25 13:52 | A.OFFPC_ITS ---
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: No Accompanied by: Self / Same As Patient Allergies rivaroxaban [From XARELTO] Adverse Reaction (Intermediate, Verified 05/25/24 14:06) LEG EDEMA, RASH Medication List - Last Reconciled 05/25/24 by Jeremy Smith PA-C acetaminophen (Tylenol Extra Strength) 1,000 mg PO Q6H PRN apixaban (Eliquis) 5 mg PO BID artifi.tears(hypromellose)(PF) 0.3% 1 drp ophthalmic (eye) Q4-6H PRN blood pressure test kit-large As directed cetirizine 10 mg PO DAILY PRN clonazepam 0.5 mg PO BEDTIME 14 days furosemide 40 mg PO DAILY leg brace (Knee Brace Large-XLarge) As directed pyridoxine (vitamin B6) 100 mg PO DAILY 90 days sacubitril-valsartan 24-26 mg (Entresto) 1 tab PO BID 90 days sotalol 120 mg (1.5 x 80 mg) PO BID 30 days Tobacco use date assessed: 05/25/24 Fall risk assessment: No Falls in past year Last assessed Fall Risk: 05/25/24 Dental Screening Dental Screen Date: 05/25/24 Did you have a dental visit in the last 12 months?: Yes Did you have a dental problem in the last 6 months where you did not have access to dental care?: No Was dental information given to patient?: Patient has dentist HPI 6 Months f/u HPI Details Patient is a 68-year-old female here today for a follow-up visit..? Patient has a past medical history significant for paroxysmal AFib, congestive heart failure with reduced ejection fraction, implantable defibrillator, SVT, hypertension, fibromyalgia, ? Anxiety Graves disease, obesity. Concern--> reports having constipation as of late and has been trying to drink more fluids though has not been effective. She did have a Cologuard in 2020 which was negative though now interested in getting a colonoscopy. --> she also does report having lower ri ght back pain over the last 4 days. She can not recall any injuries or lifting incidents. She has been using Tylenol though has not been effective. Major depressive disorder: she reports she continues to have some depression due to recent in her family. She has lost follow-up with her psychiatrist and can not make an appointment. She is willing to start up low-dose SSRI therapy to help her with her mood and depression. p-AFIB/ presence of implanted defibrillator : Patient is followed by Cardiology and has been euvolemic and without any further shortness of breath.? Did have cardio ablation in 2019. She continues on Eliquis 5 mg b.i.d. without any significant overt signs of bleeding. Her defibrillator regularly gets checked by her motor inspection mechanic. .. Congestive heart failure with reduced ejection fraction: Has not had any exacerbations recently. Continues to follow cardiology. Noted most recent liver enzymes slightly elevated in April of 2022, will recheck at earliest convenience per .. ?anxiety:? Still suffers with anxiety though has been managed well with p.r.n. use clonazepam and talking to her therapist. [facility] Medical History Heart failure with reduced ejection fraction Chronic radicular pain of lower back Chest pain Encounter for monitoring sotalol therapy Hypotension arterial Osteoporosis screening Transaminitis Biventricular ICD (implantable cardioverter-defibrillator) in place Nonischemic cardiomyopathy SVT (supraventricular tachycardia) PAF (paroxysmal atrial fibrillation) HLD (hyperlipidemia) HTN (hypertension) History of cardioversion Obesity (BMI 30-39.9) Graves' disease in remission Surgical History History of radiofrequency ablation procedure for cardiac arrhythmia History of cardiac defibrillator placement Hx of cardiac catheterization (~06/2017) Hx of tubal ligation Family History Father Stroke Hypertension Mother Hypertension Diabetes Daughter AVM (arteriovenous malformation) Son No problems noted. Sister No problems noted. Brother No problems noted. Brother No problems noted. Brother No problems noted. Brother No problems noted. Social History Household Members: Significant Other Housing: House Do you presently have visiting nurse or other home services: No Alcohol intake: never Comment: moderate risk Patient Tobacco Use Status: Never used Tobacco e-Cigarette/Vaping Use: Never Used Second Hand Smoke Exposure: No service: No Current occupational status: unemployed Cognitive needs: No Hearing needs: No Vision needs: Yes Female Reproductive History Menstrual Age of Menarche: 11 Questionnaire PHQ-9 Over the last 2 weeks, how often have you been bothered by any of the following problems? 1. Little interest or pleasure in doing things: not at all 2. Feeling down, depressed, or hopeless: not at all 3. Trouble falling or staying asleep, or sleeping too much: not at all 4. Feeling tired or having little energy: not at all 5. Poor appetite or overeating: not at all 6. Feeling bad about yourself - or that you are a failure or have let yourself or your family down: not at all 7. Trouble concentrating on things, such as reading the newspaper or watching television: not at all 8. Moving or speaking so slowly that other people could have noticed. Or the opposite - being so fidgety or restless that you have been moving around a lot more than usual: not at all 9. Thoughts that you would be better off or of hurting yourself in some way: not at all Total score: 0 Depression Screening Interpretation: Negative Depression Screening Done: Yes 85513 - PHQ-9 Billing: Yes Source: Developed by Drs. Marty Hernandez, Shaylee Hernandez, Adelfo Khan and colleagues, with an educational ziggy from [employer]. Thrive Questionnaire Date Thrive assessed: 05/25/24 I am a: Patient What is your living situation today?: I have a steady place to live Within the past 12 months, did the food you bought not last and you didn't have the money to get more?: Never true Within the past 12 months, did you worry whether your food would run out before you got money to buy more?: Never true Do you have trouble paying for medicines?: No Do you have trouble getting transportation to medical appointments?: No Do you have trouble paying your heating and electricity bill?: No Do you have trouble taking care of your child, family member or friend?: No Do you have trouble with day-to-day activities such as bathing, preparing meals, shopping, managing finances, etc.?: No Are you currently unemployed and looking for a job?: No Are you interested in more education?: No Please select the resources that you would like help with: None Currently or been in a relationship where the following occur: No concerns reported THRIVE Score: 0 AUDIT C Alcohol Use Questionnaire (AUDIT-C) 1. How often do you have a drink containing alcohol?: Never 3. How often do you have six or more drinks on one occasion?: Never Total Score: 0 GARETH-7 AMB Questionnaire GARETH-7 Date GARETH - 7 assessed: 05/25/24 Feeling nervous, anxious, or on edge: 0 = Not at all Not being able to stop or control worryin = Not at all Worrying too much about different things: 0 = Not at all Trouble relaxin = Not at all Being so restless that it is hard to sit still: 0 = Not at all Becoming easily annoyed or irritable: 0 = Not at all Feeling afraid as if something awful might happen: 0 = Not at all Total GARETH-7 score (0-4 normal; 5-9 mild; 10-14 moderate; 15-21 severe): 0 Source: Developed by Drs. Marty Hernandez, Shaylee Hernandez, Adelfo Khan and colleagues, with an educational ziggy from [employer]. GARETH-7 Assessment Billing GARETH-7 Assessment Tool: GARETH-7 Assessment 82796 Review of Systems Const Denies headache(s) Eyes Denies loss of vision ENT Denies vertigo, Denies dizziness, Denies headache(s) and Denies sore throat Card Denies chest pain, Denies leg edema and Denies lightheadedness Resp Denies cough, Denies hemoptysis and Denies wheezing GI Denies abdominal pain, Denies melena, Denies constipation, Denies diarrhea and Denies vomiting Denies urinary frequency, Denies dysuria and Denies urinary urgency Musc Denies arthralgias, Denies joint swelling, Denies numbness and Denies tingling Neuro Denies Abnormal speech present, Denies behavioral changes, Denies vertigo, Denies dizziness, Denies headache(s), Denies loss of vision, Denies memory loss, Denies numbness and Denies tingling Psych Denies anxiety, Denies behavioral changes, Denies depression, Denies memory loss and Denies panic attacks Sky/Lymph Denies easy bleeding and Denies easy bruising Aller/Immun Denies wheezing Physical exam (Primary Care) Vital Signs: Last Vital Signs Temp 97.1 F 05/25/24 14:01 Pulse 91 05/25/24 14:01 BP 126/78 05/25/24 14:01 Pulse Ox 97 05/25/24 14:01 Oxygen Delivery Method Room Air 05/25/24 14:01 BMI result Body Mass Index 31.5 BMI Assessment/Plan discussion: High BMI High, discussed plan: lifestyle, weight reduction, dietary and physical activity Tobacco/Smoking Status: Tobacco use Status Tobacco use date assessed 05/25/24 05/25/24 14:02 Patient Tobacco Use Status Never used Tobacco 05/25/24 13:53 e-Cigarette/Vaping Use Never Used 05/25/24 13:53 PHQ-9: PHQ-9 Score PHQ-9: Total score 0 05/25/24 14:03 Depression Screening Interpretation: Negative Thrive Assessment: Date of Thrive Assessment Date Thrive assessed 05/25/24 05/25/24 13:53 Currently or been in a relationship where the following occur: No concerns reported Const Other: OBESE General: healthy appearing, no acute distress, alert and awake Nutritional Appearance: well nourished Orientation/consciousness: oriented to person, oriented to place and oriented to time HENMT Ears: TM's normal bilaterally General nose exam: Normal nasal mucous membranes and turbinates present Eyes Conjunctivae: conjunctivae normal Sclerae: sclerae normal Pupils: Equal, round and reactive pupils present Neck Neck: Yes no lymphadenopathy and Yes no JVD Thyroid: Thyroid normal Carotids: no bruits Resp Effort & Inspection: normal respiratory effort and not tachypneic Auscultation: no crackles, no rales, no rhonchi and no wheezes Cardio Rate: regular rate Rhythm: regular rhythm Heart sounds: no murmurs and normal S1 and S2 GI Palpation (GI): Soft to palpation, nontender, no hepatomegaly and no splenomegaly Auscultation: normal bowel sounds Skin General skin exam: no rashes or lesions noted and dry skin Neuro General: oriented to person, oriented to place and oriented to time Cranial nerves: Yes Equal, round and reactive pupils present Speech: No Abnormal speech present Gait exam (Neuro): Normal gait present Motor exam (neuro): no tremor noted Extrem Right upper extremity: full ROM Left upper extremity: full ROM Right lower extremity: full ROM; no edema Left lower extremity: full ROM; no edema Psych Mental Status: mental status grossly normal Speech and movement: Normal speech and movement present Affect: normal affect Attitude: cooperative Thought process: Normal thought process present Coding Level of Care Code Est Pt Level 4 (04380) Diagnoses Essential hypertension I10 Hypertension type: essential hypertension Drug-induced constipation K59.03 Constipation type: drug induced constipation Acute low back pain without sciatica, unspecified back pain laterality M54.50 Back pain laterality: unspecified Chronicity: acute Sciatica presence: without sciatica Mild depression F32.0 Nonischemic cardiomyopathy I42.8 SVT (supraventricular tachycardia) I47.1 Heart failure with reduced ejection fraction I50.20 Foreign body in right foot, sequela S90.851S Encounter type: sequela Heart failure with improved ejection fraction (HFimpEF) I50.32 PAF (paroxysmal atrial fibrillation) I48.0 Colon cancer screening Z12.11 Additional Codes GARETH-7 Assessment Billing - GARETH-7 Assessment Tool: GARETH-7 Assessment 58050 ([id number]) PHQ-9 - 23984 - PHQ-9 Billing: Yes ([id number]) Assessment & Plan Assessment & Plan (1) HTN (hypertension): Code(s): I10 - Essential (primary) hypertension Category: Medical Qualifiers: Hypertension type: essential hypertension Qualified Code(s): I10 - Essential (primary) hypertension Plan: Patient's blood pressure acceptable today in office. Will continue her current dose of antihypertensive medication. Goal blood pressure to remain below 140/90 (2) Constipation: Code(s): K59.00 - Constipation, unspecified Category: Medical Qualifiers: Constipation type: drug induced constipation Qualified Code(s): K59.03 - Drug induced constipation Plan: As per HPI patient is interested in medication to help her with her constipation. Will continue to work on increasing her fluids and will get more fiber in her diet. (3) Lower back pain: Code(s): M54.50 - Low back pain, unspecified Category: Medical Qualifiers: Back pain laterality: unspecified Chronicity: acute Sciatica presence: without sciatica Qualified Code(s): M54.50 - Low back pain, unspecified Plan: Patient interested in trying a muscle relaxer for lower back pain. Will consider x-rays and physical therapy if lower back pain continues. (4) Mild depression: Code(s): F32.0 - Major depressive disorder, single episode, mild Category: Medical Plan: Patient continues on sertraline 25 mg at night which has helped her with her depressed mood. She also sees a mental health therapist regularly. (5) Nonischemic cardiomyopathy: Code(s): I42.8 - Other cardiomyopathies Category: Medical Plan: Patient continues to follow [facility]. She does an ICD the gets checked regularly by her motor inspection mechanic. No overt signs of heart failure noted recently (6) SVT (supraventricular tachycardia): Code(s): I47.1 - Supraventricular tachycardia Category: Medical Plan: Continues with sotalol with good effect on her rates. (7) Heart failure with reduced ejection fraction: Code(s): I50.20 - Unspecified systolic (congestive) heart failure Category: Medical Plan: No overt signs of decompensated heart failure. Continues on Entresto and furosemide. (8) Foreign body in foot, right: Code(s): S90.851A - Superficial foreign body, right foot, initial encounter Category: Medical Qualifiers: Encounter type: sequela Qualified Code(s): S90.851S - Superficial foreign body, right foot, sequela Plan: Has noted a small lump over her right plantar region, Does appear to have a small foreign body in her right plantar region. Will refer to Podiatry for removal. (9) Heart failure with improved ejection fraction (HFimpEF): Code(s): I50.32 - Chronic diastolic (congestive) heart failure Category: Medical Plan: Appears to be euvolemic on exam. Continues to follow [facility]. She has well compensated with furosemide 40 mg daily. (10) PAF (paroxysmal atrial fibrillation): Code(s): I48.0 - Paroxysmal atrial fibrillation Category: Medical Plan: Continues on Eliquis 5mg without any overt signs of bleeding. She is under rate control with sotalol with good effect. (11) Colon cancer screening: Comment: Negative Cologuavolodymyr 11/2019 repeat in 3 years aeb Code(s): Z12.11 - Encounter for screening for malignant neoplasm of colon Category: Medical Plan: Patient interested in colonoscopy Orders: Orders NT-proBNP Today I50.32 - Chronic diastolic (congestive) heart failure Microalbumin, Random (w Creat) Today I10 - Essential (primary) hypertension Hemoglobin A1c Today R73.09 - Other abnormal glucose Comprehensive [place]. Panel Fast Today R73.09 - Other abnormal glucose Lipid Panel Today E78.9 - Disorder of lipoprotein metabolism, unspecified Complete Blood Count no Diff Today I10 - Essential (primary) hypertension Referrals Podiatry Referral S90.851A - Superficial foreign body, right foot, initial encounter Gastroenterology Referral Z12.11 - Encounter for screening for malignant neoplasm of colon Medications: New sennosides (Senna Lax) 17.2 mg (2 x 8.6 mg) PO BEDTIME 60 tabs 1RF 30 days K59.03 - Drug induced constipation sertraline 25 mg PO DAILY 90 tabs 2RF 90 days F41.1 - Generalized anxiety disorder baclofen 5 mg PO BEDTIME 10 tabs 0RF 10 days M54.50 - Low back pain, unspecified
[2024-05-25 14:01] VITALS: BP 126/78; PULSE 91; TEMP 36.2; O2SAT 97; BMI 31.5
== END 2024-05-25 14:26 | disposition home or self-care (01) ==
LOC: HO.HMCH 13:39
PROVIDERS: PCP Physician Assistant; Visit Provider Physician Assistant
DX: I11.0 Hypertensive heart disease with heart failure (principal); F32.0 Major depressive disorder, single episode, mild; I42.8 Other cardiomyopathies; I47.10 Supraventricular tachycardia, unspecified; I50.20 Unspecified systolic (congestive) heart failure; I50.32 Chronic diastolic (congestive) heart failure; I48.0 Paroxysmal atrial fibrillation; K59.03 Drug induced constipation; M54.50 Low back pain, unspecified; S90.851S Superficial foreign body, right foot, sequela; Z12.11 Encounter for screening for malignant neoplasm of colon

== ENCOUNTER → 2024-05-25 13:39 | Outpatient (BNVA) | payer MEDICARE, MEDICAID, SELFPAY ==
[2023-05-04 15:23] VITALS: BP 104/68; BP 112/72; BMI 31.3
== END ==
PROVIDERS: PCP Physician Assistant; Visit Provider Physician Assistant
DX: I11.0 Hypertensive heart disease with heart failure (principal); I50.32 Chronic diastolic (congestive) heart failure; K59.03 Drug induced constipation; M54.50 Low back pain, unspecified; F32.0 Major depressive disorder, single episode, mild; I42.8 Other cardiomyopathies; I47.10 Supraventricular tachycardia, unspecified; R22.41 Localized swelling, mass and lump, right lower limb; S90.851S Superficial foreign body, right foot, sequela; I48.0 Paroxysmal atrial fibrillation; Z79.01 Long term (current) use of anticoagulants; Z79.899 Other long term (current) drug therapy
CPT/HCPCS: 96127; 99212

== ENCOUNTER 2024-05-29 07:12 | Outpatient (REF) | payer MEDICARE, MEDICAID, SELFPAY ==
[2023-05-04 15:23] VITALS: BP 104/68; BP 112/72; BMI 31.3
[2024-05-29 07:40] LABS: Hematocrit 38.4 % (37.0-47.0); Hemoglobin 12.8 g/dl (12.0-16.0); Mean Corpuscular HGB Conc 33.3 g/dl (31.0-35.0); Mean Corpuscular Hemoglobin 29.2 pg (27.0-33.0); Mean Corpuscular Volume 87.7 fL (80.0-98.0); Mean Platelet Volume 10.3 fL (9.4-12.3); Platelet Count 232 X10*3/uL (160-400); Red Blood Count 4.38 X10*6/uL (4.20-5.50); Red Cell Distribution Width 13.7 % (11.0-16.0); White Blood Count 7.9 X10*3/uL (4.8-10.8)
[2024-05-29 08:11] LABS: Estimated Average Glucose 105 mg/dL; Hemoglobin A1C 114.2907 umol/L; Hemoglobin A1c % 5.3 % (<6.0); Total Hemoglobin (HGBA1C) 3320.1287 umol/L
[2024-05-29 08:13] LABS: Creatinine Urine 245.46 mg/dL; Microalbum/Creatinine Ratio Ur 23.2 ug/mg cr (<30)
[2024-05-29 08:13] LABS: Alanine Aminotransferase 21 U/L (0-31); Albumin Level 4.3 g/dL (3.5-5.0); Alkaline Phosphatase 90 U/L (39-117); Anion Gap 12 (12-20); Aspartate Amino Transferase 24 U/L (5-31); Bilirubin Total 0.6 mg/dL (0.0-1.0); Blood Urea Nitrogen 17 mg/dL (9-16); Calcium 9.4 mg/dL (8.4-10.2); Carbon Dioxide 27 mmol/L (22-29); Chloride 108 mmol/L (96-108); Cholesterol 203 mg/dL (<200); Estimated Glomerular Filt Rate > 60; Glucose Fasting 130 mg/dL (60-99); HDL Cholesterol 53 mg/dL (>40); LDL Cholesterol Calculated 126 mg/dL (<100); Potassium 4.4 mmol/L (3.3-5.1); Sodium 143 mmol/L (135-145); Total Protein 7.3 g/dL (6.5-8.0); Triglycerides 124 mg/dL (<150)
[2024-05-30 23:04] LABS: NT-proBNP 558 pg/mL (<125)
== END 2024-05-29 07:13 | disposition home or self-care (01) ==
LOC: HO.LAB 07:12
PROVIDERS: PCP Physician Assistant; Visit Provider Physician Assistant
DX: I10 Essential (primary) hypertension (principal); E78.9 Disorder of lipoprotein metabolism, unspecified; I50.32 Chronic diastolic (congestive) heart failure; R73.09 Other abnormal glucose
CPT/HCPCS: 36415; 80053; 80061; 82043; 82570; 83036; 83880; 85027

== ENCOUNTER 2024-06-05 14:45 | Outpatient (AMB) | payer MEDICARE, MEDICAID, SELFPAY ==
[2023-05-04 15:23] VITALS: BP 104/68; BP 112/72; BMI 31.3
--- NOTE | 2024-06-05 14:47 | MHC.OFFVIS ---
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 Allergies rivaroxaban [From XARELTO] Adverse Reaction (Intermediate, Verified 05/25/24 14:06) LEG EDEMA, RASH Medication List - Last Reconciled 06/05/24 by Andres Bruno MD acetaminophen (Tylenol Extra Strength) 1,000 mg PO Q6H PRN apixaban (Eliquis) 5 mg PO BID artifi.tears(hypromellose)(PF) 0.3% 1 drp ophthalmic (eye) Q4-6H PRN baclofen 5 mg PO BEDTIME 10 days blood pressure test kit-large As directed cetirizine 10 mg PO DAILY PRN clonazepam 0.5 mg PO BEDTIME 14 days furosemide 40 mg PO DAILY leg brace (Knee Brace Large-XLarge) As directed pyridoxine (vitamin B6) 100 mg PO DAILY 90 days sacubitril-valsartan 24-26 mg (Entresto) 1 tab PO BID 90 days sennosides (Senna Lax) 17.2 mg (2 x 8.6 mg) PO BEDTIME 30 days sertraline 25 mg PO DAILY 90 days sotalol 120 mg (1.5 x 80 mg) PO BID 30 days HPI Comments Details: Iliana comes for follow-up. She has been doing well overall from cardiac perspective. No symptoms of prolonged palpitation irregular heartbeat. No lightheadedness, syncope, ICD discharge. No worsening shortness of breath, orthopnea, PND, leg edema. No abdominal distension. No exertional chest pain. Comes for follow-up. Taking all her medications. [facility] Medical History Heart failure with reduced ejection fraction Chronic radicular pain of lower back Chest pain Encounter for monitoring sotalol therapy Hypotension arterial Osteoporosis screening Transaminitis Biventricular ICD (implantable cardioverter-defibrillator) in place Nonischemic cardiomyopathy SVT (supraventricular tachycardia) PAF (paroxysmal atrial fibrillation) HLD (hyperlipidemia) HTN (hypertension) History of cardioversion Obesity (BMI 30-39.9) Graves' disease in remission Surgical History History of radiofrequency ablation procedure for cardiac arrhythmia History of cardiac defibrillator placement Hx of cardiac catheterization (~06/2017) Hx of tubal ligation Family History Father Stroke Hypertension Mother Hypertension Diabetes Daughter AVM (arteriovenous malformation) Son No problems noted. Sister No problems noted. Brother No problems noted. Brother No problems noted. Brother No problems noted. Brother No problems noted. Social History Household Members: Significant Other Housing: House Do you presently have visiting nurse or other home services: No Alcohol intake: never Comment: moderate risk Patient Tobacco Use Status: Never used Tobacco e-Cigarette/Vaping Use: Never Used Second Hand Smoke Exposure: No service: No Current occupational status: unemployed Cognitive needs: No Hearing needs: No Vision needs: Yes Female Reproductive History Menstrual Age of Menarche: 11 Review of Systems Const Denies chills, Denies fatigue, Denies fever(s), Denies frequent falls, Denies weakness, Denies weight gain and Denies weight loss ENT Denies dizziness Card Denies chest pain, Denies leg edema, Denies lightheadedness, Denies palpitations, Denies dyspnea, Denies dyspnea on exertion, Denies orthopnea and Denies other (loss of consciousness) Resp Denies cough, Denies dyspnea and Denies dyspnea on exertion GI Denies hematochezia and Denies change in stool character Musc Denies abnormal gait, Denies muscle weakness, Denies numbness, Denies radiating pain into limb and Denies tingling Neuro Denies abnormal gait, Denies dizziness, Denies frequent falls, Denies numbness, Denies tingling and Denies weakness Endo Denies fatigue and Denies palpitations Physical Exam Vital Signs: Last Vital Signs Pulse 80 06/05/24 14:48 BP 110/70 06/05/24 14:48 BMI result Body Mass Index 24.7 Const General: cooperative, healthy appearing, comfortable and no acute distress Orientation/consciousness: patient oriented x3 Neck Neck: Yes normal visual inspection and Yes no JVD Carotids: normal carotid upstroke Chest Chest palpation & inspection: normal inspection of the chest Resp Effort & Inspection: normal respiratory effort Auscultation: clear to auscultation bilaterally, no crackles, no rales, no rhonchi and no wheezes Cardio Jugular venous distension: no JVD Rate: regular rate Rhythm: regular rhythm Heart sounds: S1 normal heart sound present, S2 normal heart sound present, no murmurs and no rubs Neuro General: patient oriented x3 Extrem General: Yes normal to inspection, No no pedal edema and No calf tenderness Psych Appearance: grossly normal Mental Status: mental status grossly normal Speech and movement: Normal speech and movement present Office Procedures Cardiac Device Check Cardiac Device Check Details: Biventricular Medtronic ICD in place. Programmed in DDDR at 70 beats per minute. No episodes of atrial fibrillation noted. Two episodes of nonsustained ventricular tachycardia noted lasting each less than 2nd identified but not treated. Atrial ventricular sensing is adequate. Atrial sensitivity is improved. Atrial pacing thresholds and RV pacing thresholds excellent. LV pacing thresholds elevated as before but stable. Pacing and shock lead impedance is stable. Battery life is at 2 and half years. [id number] Cardiac Device Check, multi lead implantable defibrillator Procedure code (CPT) selection complete EKG Details: EKG shows atrially sensed, ventricularly paced rhythm with Bi V pacing with narrow QRS complex [id number], Complete Assessment & Plan Assessment & Plan (1) Heart failure with improved ejection fraction (HFimpEF): Code(s): I50.32 - Chronic diastolic (congestive) heart failure Category: Medical Plan: Heart failure with improved ejection fraction this elderly woman with Bi V pacing as well as neurohormonal modulation with currently Entresto as well as sotalol therapy. Clinically euvolemic and well compensated on current diuretic regimen. Advised to continue the same. Continue rhythm control approach which has helped her significantly. Daily weight monitoring avoidance salt loading was discussed. Additional diuretics as need be. (2) PAF (paroxysmal atrial fibrillation): Code(s): I48.0 - Paroxysmal atrial fibrillation Category: Medical Plan: Longstanding paroxysmal atrial fibrillation which was difficult control status post ablation. Currently doing well with rhythm control approach and needing sotalol therapy to maintain rhythm. Continue the same. Tolerating this therapy well. Continue full oral anticoagulation, currently on Eliquis 5 mg b.i.d.. Semi annual renal function test should be pursued. Avoidance of stimulants was discussed. Will continue monitor by device telemetry. (3) Biventricular ICD (implantable cardioverter-defibrillator) in place: Code(s): Z95.810 - Presence of automatic (implantable) cardiac defibrillator Category: Medical Plan: Biventricular ICD in place, working well. Reprogrammed for adequate function. Will follow-up remotely for heart failure as well as device check as planned. Possibly next time she needs a device may consider RV pacing lead with left bundle pacing to help with the need of LV pacing lead Follow up in the clinic in 6 months time, sooner p.r.n.. Thank you for allowing me to partake in her care. Coding Level of Care Code Est Pt Level 4 (97663) Complex EM visit Add On G2211 Diagnoses Heart failure with improved ejection fraction (HFimpEF) I50.32 PAF (paroxysmal atrial fibrillation) I48.0 Biventricular ICD (implantable cardioverter-defibrillator) in place Z95.810 CPT Codes Cardiac Device Check - Cardiac Device 6: [id number] Cardiac Device Check, multi lead implantable defibrillator ([id number]) EKG - CPT: 10672-[id number], Complete ([id number])
[2024-06-05 14:48] VITALS: BP 110/70; PULSE 80; BMI 24.7
== END 2024-06-05 15:13 | disposition home or self-care (01) ==
LOC: HO.HCS 14:45
PROVIDERS: PCP Physician Assistant; Visit Provider Internal Medicine Cardiovascular Disease
DX: I50.32 Chronic diastolic (congestive) heart failure (principal); I48.0 Paroxysmal atrial fibrillation; Z95.810 Presence of automatic (implantable) cardiac defibrillator
CPT/HCPCS: 93010; 93284; 99214; G2211

== ENCOUNTER → 2024-06-05 14:45 | Outpatient (BNVA) | payer MEDICARE, MEDICAID, SELFPAY ==
[2023-05-04 15:23] VITALS: BP 104/68; BP 112/72; BMI 31.3
== END ==
PROVIDERS: PCP Physician Assistant; Visit Provider Internal Medicine Cardiovascular Disease
DX: I50.32 Chronic diastolic (congestive) heart failure (principal); I48.0 Paroxysmal atrial fibrillation; Z45.02 Encounter for adjustment and management of automatic implantable cardiac defibrillator
CPT/HCPCS: 93005; 99212

== ENCOUNTER → 2024-06-18 23:59 | Outpatient (BNV) | payer MEDICARE, MEDICAID, SELFPAY ==
[2023-05-04 15:23] VITALS: BP 104/68; BP 112/72; BMI 31.3
--- NOTE | 2024-06-21 18:07 | MHC.OFFVIS ---
Intake Visit Reasons: Remote HF monitoring- Medtronic Allergies rivaroxaban [From XARELTO] Adverse Reaction (Intermediate, Verified 05/25/24 14:06) LEG EDEMA, RASH PFSH Medical History Heart failure with reduced ejection fraction Chronic radicular pain of lower back Chest pain Encounter for monitoring sotalol therapy Hypotension arterial Osteoporosis screening Transaminitis Biventricular ICD (implantable cardioverter-defibrillator) in place Nonischemic cardiomyopathy SVT (supraventricular tachycardia) PAF (paroxysmal atrial fibrillation) HLD (hyperlipidemia) HTN (hypertension) History of cardioversion Obesity (BMI 30-39.9) Graves' disease in remission Surgical History History of radiofrequency ablation procedure for cardiac arrhythmia History of cardiac defibrillator placement Hx of cardiac catheterization (~06/2017) Hx of tubal ligation Family History Father Stroke Hypertension Mother Hypertension Diabetes Daughter AVM (arteriovenous malformation) Son No problems noted. Sister No problems noted. Brother No problems noted. Brother No problems noted. Brother No problems noted. Brother No problems noted. Social History Household Members: Significant Other Housing: House Do you presently have visiting nurse or other home services: No Alcohol intake: never Comment: moderate risk Patient Tobacco Use Status: Never used Tobacco e-Cigarette/Vaping Use: Never Used Second Hand Smoke Exposure: No service: No Current occupational status: unemployed Cognitive needs: No Hearing needs: No Vision needs: Yes Female Reproductive History Menstrual Age of Menarche: 11 Office Procedures Cardiac Device Check Cardiac Device Check Details: Remote heart failure report generated 06/18/2024. Heart failure parameters are stable [id number] Cardiac Device Interrogation, cardio physiologic monitor Procedure code (CPT) selection complete Assessment & Plan Assessment & Plan (1) Biventricular ICD (implantable cardioverter-defibrillator) in place: Code(s): Z95.810 - Presence of automatic (implantable) cardiac defibrillator Category: Medical Plan: See above Coding Level of Care Code Procedure Only Diagnoses Biventricular ICD (implantable cardioverter-defibrillator) in place Z95.810 CPT Codes Cardiac Device Check - Cardiac Device 15: [id number] Cardiac Device Interrogation, cardio physiologic monitor ([id number])
== END ==
PROVIDERS: PCP Physician Assistant; Visit Provider Internal Medicine Cardiovascular Disease
DX: Z45.02 Encounter for adjustment and management of automatic implantable cardiac defibrillator (principal)
CPT/HCPCS: 93297

== ENCOUNTER → 2024-07-19 23:59 | Outpatient (BNV) | payer MEDICARE, MEDICAID, SELFPAY ==
[2023-05-04 15:23] VITALS: BP 104/68; BP 112/72; BMI 31.3
--- NOTE | 2024-07-21 16:22 | MHC.OFFVIS ---
Intake Visit Reasons: Remote ICD check-Medtronic Allergies rivaroxaban [From XARELTO] Adverse Reaction (Intermediate, Verified 05/25/24 14:06) LEG EDEMA, RASH PFSH Medical History Heart failure with reduced ejection fraction Chronic radicular pain of lower back Chest pain Encounter for monitoring sotalol therapy Hypotension arterial Osteoporosis screening Transaminitis Biventricular ICD (implantable cardioverter-defibrillator) in place Nonischemic cardiomyopathy SVT (supraventricular tachycardia) PAF (paroxysmal atrial fibrillation) HLD (hyperlipidemia) HTN (hypertension) History of cardioversion Obesity (BMI 30-39.9) Graves' disease in remission Surgical History History of radiofrequency ablation procedure for cardiac arrhythmia History of cardiac defibrillator placement Hx of cardiac catheterization (~06/2017) Hx of tubal ligation Family History Father Stroke Hypertension Mother Hypertension Diabetes Daughter AVM (arteriovenous malformation) Son No problems noted. Sister No problems noted. Brother No problems noted. Brother No problems noted. Brother No problems noted. Brother No problems noted. Social History Household Members: Significant Other Housing: House Do you presently have visiting nurse or other home services: No Alcohol intake: never Comment: moderate risk Patient Tobacco Use Status: Never used Tobacco e-Cigarette/Vaping Use: Never Used Second Hand Smoke Exposure: No service: No Current occupational status: unemployed Cognitive needs: No Hearing needs: No Vision needs: Yes Female Reproductive History Menstrual Age of Menarche: 11 Office Procedures Cardiac Device Check Cardiac Device Check Details: Remote ICD report generated 07/20/2024. ICD function is adequate [id number] Cardiac Interrogation, implant defibrillator w/interim Procedure code (CPT) selection complete Assessment & Plan Assessment & Plan (1) Biventricular ICD (implantable cardioverter-defibrillator) in place: Code(s): Z95.810 - Presence of automatic (implantable) cardiac defibrillator Category: Medical Plan: See above Coding Level of Care Code Procedure Only Diagnoses Biventricular ICD (implantable cardioverter-defibrillator) in place Z95.810 CPT Codes Cardiac Device Check - Cardiac Device 13: [id number] Cardiac Interrogation, implant defibrillator w/interim ([id number])
== END ==
PROVIDERS: PCP Physician Assistant; Visit Provider Internal Medicine Cardiovascular Disease
DX: Z45.02 Encounter for adjustment and management of automatic implantable cardiac defibrillator (principal)
CPT/HCPCS: 93295

== ENCOUNTER → 2024-07-19 23:59 | Outpatient (BNV) | payer MEDICARE, MEDICAID, SELFPAY ==
[2023-05-04 15:23] VITALS: BP 104/68; BP 112/72; BMI 31.3
--- NOTE | 2024-07-21 16:21 | MHC.OFFVIS ---
Intake Visit Reasons: Remote HF monitoring- Medtronic Allergies rivaroxaban [From XARELTO] Adverse Reaction (Intermediate, Verified 05/25/24 14:06) LEG EDEMA, RASH PFSH Medical History Heart failure with reduced ejection fraction Chronic radicular pain of lower back Chest pain Encounter for monitoring sotalol therapy Hypotension arterial Osteoporosis screening Transaminitis Biventricular ICD (implantable cardioverter-defibrillator) in place Nonischemic cardiomyopathy SVT (supraventricular tachycardia) PAF (paroxysmal atrial fibrillation) HLD (hyperlipidemia) HTN (hypertension) History of cardioversion Obesity (BMI 30-39.9) Graves' disease in remission Surgical History History of radiofrequency ablation procedure for cardiac arrhythmia History of cardiac defibrillator placement Hx of cardiac catheterization (~06/2017) Hx of tubal ligation Family History Father Stroke Hypertension Mother Hypertension Diabetes Daughter AVM (arteriovenous malformation) Son No problems noted. Sister No problems noted. Brother No problems noted. Brother No problems noted. Brother No problems noted. Brother No problems noted. Social History Household Members: Significant Other Housing: House Do you presently have visiting nurse or other home services: No Alcohol intake: never Comment: moderate risk Patient Tobacco Use Status: Never used Tobacco e-Cigarette/Vaping Use: Never Used Second Hand Smoke Exposure: No service: No Current occupational status: unemployed Cognitive needs: No Hearing needs: No Vision needs: Yes Female Reproductive History Menstrual Age of Menarche: 11 Office Procedures Cardiac Device Check Cardiac Device Check Details: Remote heart failure report generated 07/19/2024. Heart failure parameters are stable [id number] Cardiac Device Interrogation, cardio physiologic monitor Procedure code (CPT) selection complete Assessment & Plan Assessment & Plan (1) Biventricular ICD (implantable cardioverter-defibrillator) in place: Code(s): Z95.810 - Presence of automatic (implantable) cardiac defibrillator Category: Medical Plan: See above Coding Level of Care Code Procedure Only Diagnoses Biventricular ICD (implantable cardioverter-defibrillator) in place Z95.810 CPT Codes Cardiac Device Check - Cardiac Device 15: [id number] Cardiac Device Interrogation, cardio physiologic monitor ([id number])
== END ==
PROVIDERS: PCP Physician Assistant; Visit Provider Internal Medicine Cardiovascular Disease
DX: Z45.02 Encounter for adjustment and management of automatic implantable cardiac defibrillator (principal)
CPT/HCPCS: 93297

== ENCOUNTER → 2024-08-12 23:59 | Outpatient (BNV) | payer MEDICARE, MEDICAID, SELFPAY ==
[2023-05-04 15:23] VITALS: BP 104/68; BP 112/72; BMI 31.3
--- NOTE | 2024-08-17 16:31 | MHC.OFFVIS ---
Intake Visit Reasons: Remote HF monitoring- Medtronic Allergies rivaroxaban (From XARELTO) Adverse Reaction (Intermediate, Verified 05/25/24 14:06) LEG EDEMA, RASH PFSH Medical History Heart failure with reduced ejection fraction Chronic radicular pain of lower back Chest pain Encounter for monitoring sotalol therapy Hypotension arterial Osteoporosis screening Transaminitis Biventricular ICD (implantable cardioverter-defibrillator) in place Nonischemic cardiomyopathy SVT (supraventricular tachycardia) PAF (paroxysmal atrial fibrillation) HLD (hyperlipidemia) HTN (hypertension) History of cardioversion Obesity (BMI 30-39.9) Graves' disease in remission Surgical History History of radiofrequency ablation procedure for cardiac arrhythmia History of cardiac defibrillator placement Hx of cardiac catheterization (~06/2017) Hx of tubal ligation Family History Father Stroke Hypertension Mother Hypertension Diabetes Daughter AVM (arteriovenous malformation) Son No problems noted. Sister No problems noted. Brother No problems noted. Brother No problems noted. Brother No problems noted. Brother No problems noted. Social History Household Members: Significant Other Housing: House Do you presently have visiting nurse or other home services: No Alcohol intake: never Comment: moderate risk Patient Tobacco Use Status: Never used Tobacco e-Cigarette/Vaping Use: Never Used Second Hand Smoke Exposure: No service: No Current occupational status: unemployed Cognitive needs: No Hearing needs: No Vision needs: Yes Female Reproductive History Menstrual Age of Menarche: 11 Office Procedures Cardiac Device Check Cardiac Device Check Details: Remote heart failure report generated 08/12/2024. Heart failure parameters are stable [id number] Cardiac Device Interrogation, cardio physiologic monitor Procedure code (CPT) selection complete Assessment & Plan Assessment & Plan (1) Biventricular ICD (implantable cardioverter-defibrillator) in place: Code(s): Z95.810 - Presence of automatic (implantable) cardiac defibrillator Category: Medical Plan: See above Coding Level of Care Code Procedure Only Diagnoses Biventricular ICD (implantable cardioverter-defibrillator) in place Z95.810 CPT Codes Cardiac Device Check - Cardiac Device 15: [id number] Cardiac Device Interrogation, cardio physiologic monitor ([id number])
== END ==
PROVIDERS: PCP Physician Assistant; Visit Provider Internal Medicine Cardiovascular Disease
DX: Z45.02 Encounter for adjustment and management of automatic implantable cardiac defibrillator (principal)
CPT/HCPCS: 93297

== ENCOUNTER → 2024-09-19 23:59 | Outpatient (BNV) | payer MEDICARE, MEDICAID, SELFPAY ==
[2023-05-04 15:23] VITALS: BP 104/68; BP 112/72; BMI 31.3
--- NOTE | 2024-09-20 14:37 | MHC.OFFVIS ---
Intake Visit Reasons: Remote HF monitoring- Medtronic Allergies rivaroxaban (From XARELTO) Adverse Reaction (Intermediate, Verified 05/25/24 14:06) LEG EDEMA, RASH PFSH Medical History Heart failure with reduced ejection fraction Chronic radicular pain of lower back Chest pain Encounter for monitoring sotalol therapy Hypotension arterial Osteoporosis screening Transaminitis Biventricular ICD (implantable cardioverter-defibrillator) in place Nonischemic cardiomyopathy SVT (supraventricular tachycardia) PAF (paroxysmal atrial fibrillation) HLD (hyperlipidemia) HTN (hypertension) History of cardioversion Obesity (BMI 30-39.9) Graves' disease in remission Surgical History History of radiofrequency ablation procedure for cardiac arrhythmia History of cardiac defibrillator placement Hx of cardiac catheterization (~06/2017) Hx of tubal ligation Family History Father Stroke Hypertension Mother Hypertension Diabetes Daughter AVM (arteriovenous malformation) Son No problems noted. Sister No problems noted. Brother No problems noted. Brother No problems noted. Brother No problems noted. Brother No problems noted. Social History Household Members: Significant Other Housing: House Do you presently have visiting nurse or other home services: No Alcohol intake: never Comment: moderate risk Patient Tobacco Use Status: Never used Tobacco e-Cigarette/Vaping Use: Never Used Second Hand Smoke Exposure: No service: No Current occupational status: unemployed Cognitive needs: No Hearing needs: No Vision needs: Yes Female Reproductive History Menstrual Age of Menarche: 11 Office Procedures Cardiac Device Check Cardiac Device Check Details: Remote heart failure report generated 09/19/2024. Heart failure parameters are stable [id number] Cardiac Device Interrogation, cardio physiologic monitor Procedure code (CPT) selection complete Assessment & Plan Assessment & Plan (1) Biventricular ICD (implantable cardioverter-defibrillator) in place: Code(s): Z95.810 - Presence of automatic (implantable) cardiac defibrillator Category: Medical Plan: See above Coding Level of Care Code Procedure Only Diagnoses Biventricular ICD (implantable cardioverter-defibrillator) in place Z95.810 CPT Codes Cardiac Device Check - Cardiac Device 15: [id number] Cardiac Device Interrogation, cardio physiologic monitor ([id number])
== END ==
PROVIDERS: PCP Physician Assistant; Visit Provider Internal Medicine Cardiovascular Disease
DX: Z45.02 Encounter for adjustment and management of automatic implantable cardiac defibrillator (principal)
CPT/HCPCS: 93297

== ENCOUNTER 2024-10-12 10:42 | Outpatient (REF) | payer MEDICARE, MEDICAID, SELFPAY ==
[2023-05-04 15:23] VITALS: BP 104/68; BP 112/72; BMI 31.3
--- NOTE | ~2024-10-12 | US_ITS ---
EXAMINATION: US RETROPERITONEAL LIMITED (RENAL ONLY) CLINICAL INFORMATION: Renal calculi. COMPARISON: 04/14/2024. TECHNIQUE: Real-time imaging of the kidneys. FINDINGS: RIGHT KIDNEY: 11.6 x 5.1 x 5.6 cm (SAG x AP x TRV). The kidney is normal in size, contour, and echogenicity. Renal cortical thickness is normal. There are no parenchymal lesions. There is no hydronephrosis. There is a lower pole calculus measuring 1.6 x 0.9 x 1.2 cm. There is a mid pole calculus measuring 0.5 x 0.4 x 0.4 cm. There is mild pelvic fullness, nonspecific. LEFT KIDNEY: 11.8 x 4.7 x 4.2 cm (SAG x AP x TRV). The kidney is normal in size, contour, and echogenicity. Renal cortical thickness is normal. There are no parenchymal lesions. There is no hydronephrosis. There is a lower pole simple cyst measuring 8 mm. There is a mid pole simple cyst measuring 1.2 cm. There is mild pelvic fullness, nonspecific. US/US renal BI IMPRESSION: 1. Nonobstructing right renal calculi measuring up to 1.6 cm in the lower pole. No hydronephrosis. 2. Left kidney demonstrating simple cysts measuring up to 1.2 cm. No left renal calculi. 3. There is mild pelvic fullness in both kidneys, nonspecific. Electronically signed by: Eduardo Mantilla MD 10/12/2024 11:57 AM EDT
--- OUTSIDE RECORDS SUMMARY | 2024-10-12 12:17 | XMS_ITS | Clinical Summary ---
Author Organization 175 [facility] Address [address] [place] [address] Phone Care Team Providers Care Wine Fermenter Name Role Phone Jeremy Smith Primary Care Provider Allergies Active Allergy Reactions Criticality Noted Date Comments Rivaroxaban 07/12/2024 Encounters Date Type Department Care Team Description 07/12/2024 2:15 PM EDT Consult Orthopedic Surgery [facility] [address] [phone] Nick Pozo DPM Foreign body in right foot, initial encounter (Primary Dx); Pain in right foot; Capsulitis of metatarsophalangeal (MTP) joint of right foot from Last 3 Months Social History Tobacco Use Types Packs/Day Years Used Date Smoking Tobacco: Never Assessed Comments Unknown Sex and Gender Information Value Date Recorded Sex Assigned at Not on file Legal Sex Female 4:27 PM EDT Gender Identity Not on file Sexual Orientation Not on file Plan of Treatment Upcoming Encounters Date Type Department Care Team ([facility] st Contact Info) Description 11/07/2024 2:30 PM EDT Office Visit Orthopedic Surgery [facility] [address] [phone] Nick Pozo DPM [address] [phone] Health Maintenance Due Date Last Done Comments Breast Cancer Screening 1955 DTaP,Tdap,and Td Vaccines (1 - Tdap) 1973 Pneumococcal Vaccine: 50+ Years (1 of 1 - PCV) 2004 Zoster Vaccines (1 of 2) 2004 Depression Screening 02/09/2024 Colorectal Cancer Screening: FIT-DNA (Cologuard) 06/06/2024 11/05/2020, 11/05/2020 Falls Risk Assessment 06/06/2024 Hepatitis C Screening 06/06/2024 Medicare Annual Wellness Visit 06/06/2024 Osteoporosis Screening (Bone Density Screening) 06/06/2024 Social Influencers of Health Screening 06/06/2024 COVID-19 Vaccine (4 - 2024-2 6 season) 2024 02/19/2021, 05/31/2020, 05/03/2020 Influenza Vaccine (#1) 2024 , 12/15/2021 RSV Immunization Adult Patients (1 - 1-dose 75+ series) 2029 HIB Vaccines Aged Out No longer eligi ble based on patient's age to complete this topic HPV Vaccines Aged Out No longer eligi ble based on patient's age to complete this topic Hepatitis A Vaccines Aged Out No long er eligible based on patient's age to complete this topic Hepatitis B Vaccines Aged Out No long er eligible based on patient's age to complete this topic IPV Vaccines Aged Out No longer eligi ble based on patient's age to complete this topic MMR Vaccines Aged Out No longer eligi ble based on patient's age to complete this topic Meningococcal ACWY Vaccine Aged Out N o longer eligible based on patient's age to complete this topic Meningococcal B Vaccine Aged Out No l onger eligible based on patient's age to complete this topic RSV Immunization Patients Under 20 months Aged Out No longer eligible b ased on patient's age to complete this topic Varicella Vaccines Aged Out No longer eligible based on patient's age to complete this topic Procedures Procedure Name Priority Date/Time Associated Diagnosis Comments INJECTION TENDON OR LIGAMENT Routine 07/12/2024 2:15 PM EDT Capsulitis of metatarsophalangeal (MTP) joint of right foot from Last 3 Months Results * Injection tendon or ligament (07/12/2024 2:15 PM EDT) Narrative Nick Pozo DPM - 07/12/2024 2:15 PM EDT Nick Pozo DPM 07/12/2024 6:41 PM Injection tendon or ligament Indications: pain Details: 25 G needle Medications: 0.5 mL lidocaine (PF) 1 %; 40 mg triamcinolone acetonide 40 mg/mL Informed Consent: Laterality: Right us Nick Pozo DPM IN CLINIC/BEDSIDE ORDERABLE S Final Result from Last 3 Months Insurance MEDICARE MEDICAID - [place] Care Teams Wine Fermenter Relationship Specialty Start Date End Date Jeremy Smith PA [address] [place] [phone] PCP - General Physician Community Health Outreach Worker 07/25/24
== END 2024-10-12 10:43 | disposition home or self-care (01) ==
LOC: HO.US 10:42
PROVIDERS: PCP Physician Assistant; Visit Provider Nurse Practitioner Family
DX: N20.0 Calculus of kidney (principal)
CPT/HCPCS: 76775

== ENCOUNTER → 2024-10-12 10:44 | Outpatient (BNV) | payer MEDICARE, MEDICAID, SELFPAY ==
[2023-05-04 15:23] VITALS: BP 104/68; BP 112/72; BMI 31.3
== END ==
PROVIDERS: PCP Physician Assistant; Visit Provider Radiology Diagnostic Radiology
DX: N20.0 Calculus of kidney (principal); N28.1 Cyst of kidney, acquired
CPT/HCPCS: 76775

== ENCOUNTER 2024-10-12 11:18 | Emergency (ER) | payer MEDICARE, MEDICAID, SELFPAY ==
[2023-05-04 15:23] VITALS: BP 104/68; BP 112/72; BMI 31.3
[2024-10-12 11:39] VITALS: BP 148/70; PULSE 89; RESP 18; TEMP 37.1; O2SAT 98; BMI 33.2
--- NOTE | 2024-10-12 11:39 | ED_ITS ---
HPI - General Adult General Chief complaint: Abdominal Pain Stated complaint: abd pain sent from ultra sound Time Seen by Provider: 10/12/24 14:10 Related Data Home Medications ?Medication ?Instructions ?Recorded ?Confirmed acetaminophen 500 mg tablet 1,000 mg PO Q6H PRN Pain ( Scale 11/09/19 06/05/24 (Tylenol Extra Strength) Score 1-3) artifi.tears(hypromellose)(PF) 0.3 1 drp ophthalmic (e ye) Q4-6H PRN 03/27/20 06/05/24 % eye drops Dry Eyes Previous Rx's ?Medication ?Instructions ?Recorded blood pressure test kit-large #1 ea 08/14/21 cetirizine 10 mg tablet 10 mg PO DAILY PRN allergy 0 11/06/22 symptoms #30 tabs leg brace (Knee Brace Large-XLarge) #1 ea 07/22/23 clonazepam 0.5 mg tablet 0.5 mg PO BEDTIME 14 days #1 4 tabs 10/21/23 pyridoxine (vitamin B6) 100 mg 100 mg PO DAILY 90 days #90 tabs 05/08/24 tablet baclofen 5 mg tablet 5 mg PO BEDTIME 10 days #10 tabs 05/25/24 sennosides 8.6 mg tablet (Senna 17.2 mg (2 x 8.6 mg) P O BEDTIME 30 05/25/24 Lax) days #60 tabs sertraline 25 mg tablet 25 mg PO DAILY 90 days #90 t abs 05/25/24 apixaban 5 mg tablet (Eliquis) 5 mg PO BID #180 tabs 0 08/01/24 furosemide 40 mg tablet 40 mg PO DAILY #90 tabs 07/10 06/02 sacubitril 24 mg-valsartan 26 mg 1 tab PO BID 90 days #180 tabs 08/01/24 tablet (Entresto) sotalol 80 mg tablet 120 mg (1.5 x 80 mg) PO BID 90 08/01/24 days #270 tabs Allergies Allergy/AdvReac Type Severity Reaction Status Date / Time rivaroxaban (From XARELTO) AdvReac Intermediate LEG EDEMA, Verified 10/12/24 11:39 RASH PMFSH Past Medical History Medical History Heart failure with reduced ejection fraction Chronic radicular pain of lower back Chest pain Encounter for monitoring sotalol therapy Hypotension arterial Osteoporosis screening Transaminitis Biventricular ICD (implantable cardioverter-defibrillator) in place Nonischemic cardiomyopathy SVT (supraventricular tachycardia) PAF (paroxysmal atrial fibrillation) HLD (hyperlipidemia) HTN (hypertension) History of cardioversion Obesity (BMI 30-39.9) Graves' disease in remission Surgical History History of radiofrequency ablation procedure for cardiac arrhythmia History of cardiac defibrillator placement Hx of cardiac catheterization (~06/2017) Hx of tubal ligation Family History Family History Father Stroke Hypertension Mother Hypertension Diabetes Daughter AVM (arteriovenous malformation) Son No problems noted. Sister No problems noted. Brother No problems noted. Brother No problems noted. Brother No problems noted. Brother No problems noted. Social History Social History Household Members: Significant Other Housing: House Do you presently have visiting nurse or other home services: No Alcohol intake: never Comment: moderate risk Patient Tobacco Use Status: Never used Tobacco e-Cigarette/Vaping Use: Never Used Second Hand Smoke Exposure: No Advance Directives: No Advance Directives Information Provided: Yes service: No Current occupational status: unemployed Cognitive needs: No Hearing needs: No Vision needs: Yes Physical Exam ED Vital Signs: Vital Signs - 24 hr 10/12/24 11:39 Temperature 98.7 F Pulse Rate 89 Respiratory Rate 18 Blood Pressure 148/70 H Pulse Oximetry 98 Oxygen Delivery Method Room Air BMI result Body Mass Index 33.2 Course Course Course Narrative: This is a rapid medical exam performed by Nathan Ashraf NP: Additional HPI, ROS, PE not included below will be deferred to primary provider. Patient is a 69-year-old female presenting to the ED from [facility] after renal u/s complaining of lower abdominal pain and hematuria for the past few days. Hx of stones requiring stents. Fever x 2 days. Plan: labs, U/A Patient left the emergency department before myself or any of the other clinicians could review or explain physical exam findings, test results, need or lack there of for additional testing, treatment options, or a treatment plan. Medical Decision Making Lab Data 10/12/24 12:23 10/12/24 12:23 Labs: Lab Results 10/12/24 10/12/24 Range/Units 12:19 12:23 WBC 6.3 (4.8-10.8) X10*3/uL RBC 4.58 (4.20-5.50) X10*6/uL Hgb 13.1 (12.0-16.0) g/dl Hct 39.7 (37.0-47.0) % MCV 86.7 (80.0-98.0) fL MCH 28.6 (27.0-33.0) pg MCHC 33.0 (31.0-35.0) g/dl RDW 14.2 (11.0-16.0) % Plt Count 220 (160-400) X10*3/uL MPV 10.2 (9.4-12.3) fL Immature Gran % (Auto) 0.3 (0.0-0.4) % Neut % (Auto) 61.8 (45-73) % Lymph % (Auto) 26.2 (20-40) % [place] % (Auto) 9.0 (2-11) % Eos % (Auto) 1.9 (0-4) % Baso % (Auto) 0.8 (0-2) % Lymph # (Auto) 1.7 (1.2-4.9) X10*3/uL [place] # (Auto) 0.6 (0.1-1.2) X10*3/uL Eos # (Auto) 0.1 (0.0-0.4) X10*3/uL Baso # (Auto) 0.1 (0.0-0.2) X10*3/uL Abs Immat Gran (auto) 0.02 (0.00-0.03) X10*3/uL Absolute Neuts (auto) 3.9 (2.0-8.3) x10*3/uL Absolute Nucleated RBC 0.000 (0.0-0.012) X10*3/uL Nucleated RBC % (auto) 0.0 (0.0-0.2) /100WBC Sodium 143 (135-145) mmol/L Potassium 3.6 (3.3-5.1) mmol/L Chloride 107 (96-108) mmol/L Carbon Dioxide 27 (22-29) mmol/L Anion Gap 13 (12-20) BUN 11 (9-16) mg/dL Creatinine 0.69 (0.5-1.4) mg/dL Estim Creat Clear Calc 87.3 Estimated GFR > 60 Random Glucose 99 (60-115) mg/dL Calcium 9.2 (8.4-10.2) mg/dL Total Bilirubin 0.9 (0.0-1.0) mg/dL AST 30 (5-31) U/L ALT 28 (0-31) U/L Alkaline Phosphatase 92 (39-117) U/L Total Protein 7.4 (6.5-8.0) g/dL Albumin 4.6 (3.5-5.0) g/dL Urine Color Yellow Urine Appearance Clear Urine pH 8.0 (5.0-9.0) Ur Specific [place] <= 1.005 (1.005-1.025) Urine Protein Negative (Neg-Trace) mg/dL Urine Glucose (UA) Negative (Negative) mg/dL Urine Ketones Negative (Negative) mg/dL Urine Blood Moderate (2+) H (Negative) Urine Nitrite Negative (Negative) Ur Leukocyte Esterase Negative (Negative) Urine RBC >20 H (0-2) /HPF Urine WBC 0-5 (0-5) /HPF Ur Squamous Epith Cells 0-2 (0-2) /HPF Urine Bacteria None Seen (None Seen) Hyaline Casts 0-2 (0-2) /LPF Discharge Plan Discharge Clinical Impression: Hematuria Patient Disposition: Left W/O Completing Treatment Prescriptions: No Action cetirizine 10 mg tablet 10 mg PO DAILY PRN (Reason: allergy symptoms) Qty: 30 2RF Eliquis 5 mg tablet 5 mg PO BID Qty: 180 3RF furosemide 40 mg tablet 40 mg PO DAILY Qty: 90 3RF Entresto 24-26 mg tablet 1 tab PO BID 90 Days Qty: 180 3RF sotalol 80 mg tablet 120 mg PO BID 90 Days Qty: 270 3RF (DME) blood pressure test kit-large Kit See Rx Instructions .Route Qty: 1 0RF Rx Instructions: As directed clonazepam 0.5 mg tablet 0.5 mg PO BEDTIME 14 Days Qty: 14 1RF Rx Instructions: administer 30 minutes before bedtime acetaminophen [Tylenol Extra Strength] 500 mg tablet 1,000 mg PO Q6H PRN (Reason: Pain (Scale Score 1-3)) artifi.tears(hypromellose)(PF) 0.3 % drops 1 drp ophthalmic (eye) Q4-6H PRN (Reason: Dry Eyes) sennosides [Senna Lax] 8.6 mg tablet 17.2 mg PO BEDTIME 30 Days Qty: 60 1RF baclofen 5 mg tablet 5 mg PO BEDTIME 10 Days Qty: 10 0RF sertraline 25 mg tablet 25 mg PO DAILY 90 Days Qty: 90 2RF pyridoxine (vitamin B6) 100 mg tablet 100 mg PO DAILY 90 Days Qty: 90 3RF (DME) Knee Brace Large-XLarge Misc See Rx Instructions .Route Qty: 1 0RF Rx Instructions: As directed Discharge Date/Time: 10/12/24 14:33
[2024-10-12 12:29] LABS: MANUAL DIFF FLAG NO
[2024-10-12 12:30] LABS: Hematocrit 39.7 % (37.0-47.0); Hemoglobin 13.1 g/dl (12.0-16.0); Imm Gran Abs Auto 0.02 X10*3/uL (0.00-0.03); Imm Gran Pct Auto 0.3 % (0.0-0.4); Lymphocytes Absolute Auto 1.7 X10*3/uL (1.2-4.9); Mean Corpuscular HGB Conc 33.0 g/dl (31.0-35.0); Mean Corpuscular Hemoglobin 28.6 pg (27.0-33.0); Mean Corpuscular Volume 86.7 fL (80.0-98.0); NRBC Abs Auto 0.000 X10*3/uL (0.0-0.012); NRBC Pct Auto 0.0 /100WBC (0.0-0.2); Platelet Count 220 X10*3/uL (160-400); Red Blood Count 4.58 X10*6/uL (4.20-5.50); White Blood Count 6.3 X10*3/uL (4.8-10.8)
[2024-10-12 12:32] LABS: Appearance Urine Clear; Glucose Urine UA Negative (Negative); PH 8.0 (5.0-9.0); Specific Gravity - Urine <= 1.005 (1.005-1.025); UMIC TRIGGER UACC YES
[2024-10-12 12:54] LABS: Alanine Aminotransferase 28 U/L (0-31); Albumin Level 4.6 g/dL (3.5-5.0); Alkaline Phosphatase 92 U/L (39-117); Anion Gap 13 (12-20); Aspartate Amino Transferase 30 U/L (5-31); Blood Urea Nitrogen 11 mg/dL (9-16); Calcium 9.2 mg/dL (8.4-10.2); Carbon Dioxide 27 mmol/L (22-29); Chloride 107 mmol/L (96-108); Creatinine Clr Calc Pharmacy 87.3; Estimated Glomerular Filt Rate > 60; Potassium 3.6 mmol/L (3.3-5.1); Sodium 143 mmol/L (135-145); Total Protein 7.4 g/dL (6.5-8.0)
== END 2024-10-12 14:33 | disposition left against medical advice (07) ==
PROVIDERS: Registered Nurse Emergency; Emergency Provider Emergency Medicine; PCP Physician Assistant
DX: R31.9 Hematuria, unspecified (principal); Z79.899 Other long term (current) drug therapy
CPT/HCPCS: 36415; 80053; 81001; 85025; 99282; 99283

== ENCOUNTER 2024-10-16 14:29 | Outpatient (REF) | payer MEDICARE, MEDICAID, SELFPAY ==
[2023-05-04 15:23] VITALS: BP 104/68; BP 112/72; BMI 31.3
--- NOTE | ~2024-10-16 | CT_ITS ---
EXAMINATION: CT ABDOMEN AND PELVIS WITHOUT CONTRAST CLINICAL INFORMATION: Calculus of kidney. COMPARISON: August 04, 2023. TECHNIQUE: Multidetector volumetric imaging was performed from the superior aspect of the liver through the pubic symphysis. Sagittal and coronal reformatted images were obtained on the technologist's workstation. This CT examination was performed using dose optimization techniques as appropriate, variously including the following: *Automated exposure control *Adjustment of mA and/or kV according to patient size (this includes techniques or standardized protocols for targeted exams where dose is matched to indication/reason for exam; i.e. extremities or head) *Use of iterative reconstruction technique DLP: 578 mGy centimeter. FINDINGS: Limited evaluation of the intra-abdominal organs and vascular structures due to lack of IV contrast. LUNG BASES: Focal area of bronchiectasis with linear attenuation, left lower lung lobe. LIVER, GALLBLADDER, AND BILIARY TREE: Liver measures 15 cm. Subtle nodular surface. Gallbladder is nondistended. No intrahepatic or extrahepatic biliary ductal dilatation. No pericholecystic fluid collection or gallbladder wall thickening. PANCREAS: No peripancreatic fluid collection or main pancreatic ductal dilatation. SPLEEN: 9 cm. Punctate calcification. ADRENAL GLANDS: No nodular lesions. KIDNEYS AND URETERS: Right kidney: Multiple cluster of calculi in the midportion and lower pole of the pelvicalyceal system, the largest measures no more than 8.3 mm. No hydronephrosis. No perinephric fluid collection. Left kidney: There is a cluster of less than 5 mm calculi in the upper pole of the pelvicalyceal system. No hydronephrosis. BLADDER: Fluid-filled nearly collapsed. GASTROINTESTINAL TRACT: Abundant stool throughout the large intestine. Small hiatal hernia. No intestinal obstruction pattern. No pneumatosis intestinalis. Appendix is normal and short and a retrocecal location. No ascites. No pneumoperitoneum. ABDOMINAL WALL: Small tiny fat-containing umbilical hernia. LYMPH NODES: Nonspecific prominent mesenteric and retroperitoneum. VASCULAR: Mixed plaques in the abdominal aorta wall and the iliac arteries the origin of the mesenteric arteries and main renal arteries. No aneurysm in the abdominal aorta. There are electrode leads in the right heart chambers and coronary sinus. PELVIC VISCERA: Heterogeneous nodular uterus, the largest measures 4 cm. OSSEOUS STRUCTURES: Multilevel thoracolumbar spondylosis resulting in central spinal canal and bilateral neuroforamina stenosis from L3-4 to L5-S1. Degenerative changes in the symphysis pubis. CT/CT kidney stone IMPRESSION: Bilateral nonobstructing nephrolithiasis, similar since prior examination. 5 cm uterine fibroid. Atherosclerosis disease, aorta and iliac arteries. Fleischner guidelines were followed. Electronically signed by: Ze Albrecht MD 10/16/2024 03:12 PM EDT
--- OUTSIDE RECORDS SUMMARY | 2024-10-16 16:50 | XMS_ITS | Clinical Summary ---
Author Organization 175 [facility] Address [address] [place] [address] Phone Care Team Providers Care Undercutter Name Role Phone Jeremy Smith Primary Care Provider [phone] Allergies Active Allergy Reactions Criticality Noted Date Comments Rivaroxaban 07/12/2024 Social History Tobacco Use Types Packs/Day Years Used Date Smoking Tobacco: Never Assessed Comments Unknown Sex and Gender Information Value Date Recorded Sex Assigned at Not on file Legal Sex Female 4:27 PM EDT Gender Identity Not on file Sexual Orientation Not on file Plan of Treatment Upcoming Encounters Date Type Department Care Team (Late st Contact Info) Description 11/07/2024 2:30 PM EDT Office Visit Orthopedic Surgery - [place] [address] [phone] Nick Pozo, [place] [address] [phone] Health Maintenance Due Date Last Done Comments [...] Influencers of Health Screening 06/06/2024 COVID-19 Vaccine (2024-2 6 season) 2024 02/19/2021, 05/31/2020, 05/03/2020 Influenza Vaccine (#1) 2024 4, 12/15/2021 RSV Immunization Adult Patients (1 - [...] on patient's age to complete this topic Insurance MEDICARE MEDICAID - [place] Care Teams Undercutter Relationship Specialty Start Date End Date Jeremy Smith PA [address] [place] [phone] PCP - General Physician Programming Coordinator 07/25/24
== END 2024-10-16 14:30 | disposition home or self-care (01) ==
LOC: HO.CT 14:29
PROVIDERS: PCP Physician Assistant; Visit Provider Urology
DX: N20.0 Calculus of kidney (principal); R31.9 Hematuria, unspecified
CPT/HCPCS: 74176

== ENCOUNTER → 2024-10-16 14:30 | Outpatient (BNV) | payer MEDICARE, MEDICAID, SELFPAY ==
[2023-05-04 15:23] VITALS: BP 104/68; BP 112/72; BMI 31.3
== END ==
PROVIDERS: PCP Physician Assistant; Visit Provider Radiology Diagnostic Radiology
DX: N20.0 Calculus of kidney (principal); I70.90 Unspecified atherosclerosis
CPT/HCPCS: 74176

== ENCOUNTER 2024-10-20 09:39 | Outpatient (AMB) | payer MEDICARE, MEDICAID, SELFPAY ==
[2023-05-04 15:23] VITALS: BP 104/68; BP 112/72; BMI 31.3
--- NOTE | 2024-10-20 09:43 | A.OFFVIS_ITS ---
Vital Signs 10/20/24 10:06 Height 5 ft 9 in Weight 208 lb 1.862 oz BMI 30.7 BP 138/76 Blood Pressure Location Rt brachial Position Sitting Pulse 71 Intake Visit Reasons: colonoscopy screening Intake Note: New patient in office today for colonoscopy screening. CC: Patient c/o Rt sided back pain that is constant for a long time. Last cologuard done on 10/2020 and was negative. She c/o constipation and states that her doctor gave her Senna to take x2 at bedtime. Per patient she takes them sometimes and they do not help much. She also c/o burning sensation and pain from rectum that she believes is from a laceration . Book Retailer Required: No Accompanied by: Self / Same As Patient Allergies rivaroxaban (From XARELTO) Adverse Reaction (Intermediate, Verified 10/20/24 10:21) LEG EDEMA, RASH HPI HPI colonoscopy screening: Details: Assessment & Plan (1) Colon cancer screening: ?Code(s): Z12.11 - Encounter for screening for malignant neoplasm of colon ?Plan: We discuss Cologuard r/t her cardiac co morbidities.? We watch the video together and she feels this would be preferable to undergoing anesthesia/colonoscopy so long as is negative.? She is educated that if that is negative we will repeat this study every 3 years.? If at any time it becomes positive then we will need to consider colonoscopy but this way we minimize how often she needs to be exposed to what might not be a good risk versus benefit procedure in terms of anesthesia complications. She has occasional CIC but this resolves with water and eating raisins. SHe denies any upper GI problems. She has no prior problems with anesthesia or sedation but I don't like it. She has extensive cardiac problems, no respiratory problems. No ID problems. There is no FHX or polyps or CRC known. ROV 6 weeks to go over Cologuard. (2) Paroxysmal atrial fibrillation: ?Code(s): I48.0 - Paroxysmal atrial fibrillation (3) Heart failure with reduced ejection fraction: ?Code(s): I50.20 - Unspecified systolic (congestive) heart failure (4) Biventricular ICD (implantable cardioverter-defibrillator) in place: ?Code(s): Z95.810 - Presence of automatic (implantable) cardiac defibrillator COLOGUARD RESULTS The 2020 Cologuard was negative TODAY'S VISIT FOR[facility]LY [facility], [facility] Medical History Heart failure with reduced ejection fraction Chronic radicular pain of lower back Chest pain Encounter for monitoring sotalol therapy Hypotension arterial Osteoporosis screening Transaminitis Biventricular ICD (implantable cardioverter-defibrillator) in place Nonischemic cardiomyopathy SVT (supraventricular tachycardia) PAF (paroxysmal atrial fibrillation) HLD (hyperlipidemia) HTN (hypertension) History of cardioversion Obesity (BMI 30-39.9) Graves' disease in remission Surgical History History of radiofrequency ablation procedure for cardiac arrhythmia History of cardiac defibrillator placement Hx of cardiac catheterization (~06/2017) Hx of tubal ligation Family History Father Stroke Hypertension Mother Hypertension Diabetes Daughter AVM (arteriovenous malformation) Son No problems noted. Sister No problems noted. Brother No problems noted. Brother No problems noted. Brother No problems noted. Brother No problems noted. Family/Other Pancreatic cancer Social History Household Members: Significant Other Housing: House Do you presently have visiting nurse or other home services: No Alcohol intake: never Comment: moderate risk Patient Tobacco Use Status: Never used Tobacco e-Cigarette/Vaping Use: Never Used Second Hand Smoke Exposure: No service: No Current occupational status: unemployed Cognitive needs: No Hearing needs: No Vision needs: Yes Female Reproductive History Menstrual Age of Menarche: 11 Review of Systems Const Denies fatigue, Denies fever(s), Denies night sweats, Denies poor appetite and Denies weight loss ENT Reports Normal hearing present, Denies dental pain, Denies dysphagia, Denies hearing loss, Denies mouth pain, Denies odynophagia, Denies throat swelling, Denies tongue swelling and Reports other (Dentition adequate) Card Reports no additional complaints Resp Reports no additional complaints GI Details: Reports abdominal pain, Denies melena, Denies bloating, Denies hematochezia, Reports constipation, Denies GI cramping, Denies dysphagia, Denies excessive flatus, Denies early satiety, Denies heartburn, Denies diarrhea, Denies nausea, Denies odynophagia, Denies vomiting and Denies hematemesis Reports flank pain Skin/Breast Denies pruritus, Denies lesions, Denies rash and Denies jaundice Neuro Reports Normal hearing present and Denies Abnormal speech present Endo Denies fatigue Aller/Immun Denies throat swelling and Denies tongue swelling Physical Exam Vital Signs: Last Vital Signs Pulse 71 10/20/24 10:06 BP 138/76 10/20/24 10:06 BMI result Body Mass Index 30.7 Const General: cooperative, no acute distress, well developed and well groomed Nutritional Appearance: well nourished and obese Orientation/consciousness: oriented to person, oriented to place and oriented to time Limitations: language barrier HEENT Head: Yes normocephalic and Yes atraumatic Eyes General: appearance normal, both eyes and all related structures Pupils: Equal, round and reactive pupils present Neck Neck: Yes normal visual inspection and Yes no lymphadenopathy Thyroid: Thyroid normal Resp Effort & Inspection: normal respiratory effort and able to speak in complete sentences Auscultation: clear to auscultation bilaterally Cardio Rate: regular rate Rhythm: regular rhythm Heart sounds: Normal, physiologic split S2 sound present Peripheral pulses: radial pulses present and posterior tibial pulses present GI Inspection: No distended, Yes Abdominal panniculus present and Yes obesity Palpation (GI): Soft to palpation, Tenderness to palpation present (GI) in the LLQ and in the LUQ, no guarding, not rigid and No hepatosplenomegaly present Percussion: Yes normal to percussion Auscultation: normal bowel sounds Rectal Exam - Female: deferred Skin General skin exam: no rashes or lesions noted, turgor normal, skin not dry, no jaundice, No spider nevi and no striae Rashes: no rashes Nails: normal Neuro General: oriented to person, oriented to place and oriented to time Cranial nerves: Yes Equal, round and reactive pupils present and Yes Normal hearing present Speech: No Abnormal speech present Extrem General: Yes normal to inspection, No clubbing, No cyanosis and No edema Psych Appearance: grossly normal and well kempt Mental Status: mental status grossly normal Speech and movement: Normal speech and movement present Affect: normal affect Attitude: cooperative Thought process: Normal thought process present and not confabulating Thought content: Normal thought content present Insight: Limited insight present (Psych) Judgement: Limited judgement present (Psych) Results Reviewed Results Reviewed: Laboratory Tests 05/29/24 10/12/24 07:22 12:23 WBC 6.3 Hgb 13.1 Hct 39.7 Plt Count 220 Estimated GFR > 60 Total Bilirubin 0.9 AST 30 ALT 28 Alkaline Phosphatase 92 NT-Pro-B Natriuret Pep 558 H 10/12/24-[address]: Jeremy Smith PA-C ORDERED: [facility] w [facility] QUERIES: Collection Date: 10/12/24 Collection Time: 1217 Source: Urine, Clean Catch Test Result Flag Reference Ur Color Yellow Ur Appear Clear PH 8.0 5.0-9.0 Ur Glu Negative Negative mg/dL Urine Blood Moderate (2+) H Negative Spec [place] Ur <= 1.005 1.005-1.025 Urine Protein Negative Neg-Trace mg/dL Urine Ketones Negative Negative mg/dL Ur Nitrite Negative Negative Ur Renee Esterase Negative Negative Ur RBC >20 H 0-2 /HPF Ur WBC 0-5 0-5 /HPF Ur Squam Epi 0-2 0-2 /HPF Ur Bact None Seen None Seen Ur Hyaline Checking Clerk 0-2 0-2 /LPF CT ABDOMEN AND PELVIS 10/16/2024 FINDINGS: Limited evaluation of the intra-abdominal organs and vascular structures due to lack of IV contrast. LUNG BASES: Focal area of bronchiectasis with linear attenuation, left lower lung lobe. LIVER, GALLBLADDER, AND BILIARY TREE: Liver measures 15 cm. Subtle nodular surface. Gallbladder is nondistended. No intrahepatic or extrahepatic biliary ductal dilatation. No pericholecystic fluid collection or gallbladder wall thickening. PANCREAS: No peripancreatic fluid collection or main pancreatic ductal dilatation. SPLEEN: 9 cm. Punctate calcification. ADRENAL GLANDS: No nodular lesions. KIDNEYS AND URETERS: Right kidney: Multiple cluster of calculi in the midportion and lower pole of the pelvicalyceal system, the largest measures no more than 8.3 mm. No hydronephrosis. No perinephric fluid collection. Left kidney: There is a cluster of less than 5 mm calculi in the upper pole of the pelvicalyceal system. No hydronephrosis. BLADDER: Fluid-filled nearly collapsed. GASTROINTESTINAL TRACT: Abundant stool throughout the large intestine. Small hiatal hernia. No intestinal obstruction pattern. No pneumatosis intestinalis. Appendix is normal and short and a retrocecal location. No ascites. No pneumoperitoneum. ABDOMINAL WALL: Small tiny fat-containing umbilical hernia. LYMPH NODES: Nonspecific prominent mesenteric and retroperitoneum. VASCULAR: Mixed plaques in the abdominal aorta wall and the iliac arteries the origin of the mesenteric arteries and main renal arteries. No aneurysm in the abdominal aorta. There are electrode leads in the right heart chambers and coronary sinus. PELVIC VISCERA: Heterogeneous nodular uterus, the largest measures 4 cm. OSSEOUS STRUCTURES: Multilevel thoracolumbar spondylosis resulting in central spinal canal and bilateral neuroforamina stenosis from L3-4 to L5-S1. Degenerative changes in the symphysis pubis. CT/CT kidney stone IMPRESSION: Bilateral nonobstructing nephrolithiasis, similar since prior examination. 5 cm uterine fibroid. Atherosclerosis disease, aorta and iliac arteries. RENAL ULTRASOUND 10/12/2024 FINDINGS: RIGHT KIDNEY: 11.6 x 5.1 x 5.6 cm (SAG x AP x TRV). The kidney is normal in size, contour, and echogenicity. Renal cortical thickness is normal. There are no parenchymal lesions. There is no hydronephrosis. There is a lower pole calculus measuring 1.6 x 0.9 x 1.2 cm. There is a mid pole calculus measuring 0.5 x 0.4 x 0.4 cm. There is mild pelvic fullness, nonspecific. LEFT KIDNEY: 11.8 x 4.7 x 4.2 cm (SAG x AP x TRV). The kidney is normal in size, contour, and echogenicity. Renal cortical thickness is normal. There are no parenchymal lesions. There is no hydronephrosis. There is a lower pole simple cyst measuring 8 mm. There is a mid pole simple cyst measuring 1.2 cm. There is mild pelvic fullness, nonspecific. US/US renal BI IMPRESSION: 1. Nonobstructing right renal calculi measuring up to 1.6 cm in the lower pole. No hydronephrosis. 2. Left kidney demonstrating simple cysts measuring up to 1.2 cm. No left renal calculi. 3. There is mild pelvic fullness in both kidneys, nonspecific. Assessment & Plan Assessment & Plan (1) Nephrolithiasis: Code(s): N20.0 - Calculus of kidney Category: Medical (2) Left lower quadrant abdominal pain: Code(s): R10.32 - Left lower quadrant pain Category: Medical Plan - The patient is a 69-year-old female presenting for repeat Cologuard screening, however she has developed new problem of left lower quadrant pain and constipation. - Reports chronic constipation with infrequent bowel movements, she is using senna with mixed results. However, she only uses it when she becomes very constipated and I think she needs to take at least 1 pill every night to better regulate bowel motility. Descriptions include passage of hard, pellet-like stools, and occasional need for straining. The condition appears to be chronic with no specific onset. - Diagnosed with nephrolithiasis at an emergency visit?multiple small stones noted bilaterally without signs of hydronephrosis. She left the ER before they can give her results. She has been drinking lots of water, and it is possible that this left-sided abdominal pain is from renal colic, saw give her a trial of Flomax and have her take naproxen at bedtime since this is when she has the worse pain. - Relevant diagnostic results included normal chem profiles and no indication of blood or urinary infections during the recent emergency visit although gross hematuria was noted. Again I want her to take senna every night and will see how she responds to this. We will also see if these interventions help relieve the pain which could be multifactorial and related to renal colic as well. We are going to order another Cologuard for her colon cancer screening. Return office visit in 4 weeks Medications: New naproxen 250 mg PO BEDTIME 5 tabs 0RF 5 days tamsulosin (Flomax) 0.4 mg PO DAILY 30 caps 0RF N20.0 - Calculus of kidney, R10.32 - Left lower quadrant pain Coding Level of Care Code New Pt Level 3 (95967) Diagnoses Nephrolithiasis N20.0 Left lower quadrant abdominal pain R10.32
[2024-10-20 10:06] VITALS: BP 138/76; PULSE 71; BMI 30.7
--- OUTSIDE RECORDS SUMMARY | 2024-10-20 10:48 | XMS_ITS | Clinical Summary ---
Author Organization [address] [facility] Address [address] [place] [address] Phone Care Team Providers Care Tree Loader Meat Name Role Phone Jeremy Smith Primary Care [...] PM EDT Office Visit Orthopedic Surgery - [place] [address] [phone] Nick Pozo, [place] [address] [address] Health Maintenance Due Date Last Done Comments [...] Insurance MEDICARE MEDICAID - [place] Care Teams Tree Loader Meat Relationship Specialty Start Date End Date Jeremy Smith PA [address] [place] [id number] PCP - General Physician Logistics Project Manager 07/25/24
== END 2024-10-20 11:06 | disposition home or self-care (01) ==
LOC: HO.HGI 09:40
PROVIDERS: PCP Physician Assistant; Visit Provider Nurse Practitioner
DX: N20.0 Calculus of kidney (principal); R10.32 Left lower quadrant pain
CPT/HCPCS: 99203

== ENCOUNTER → 2024-10-20 09:39 | Outpatient (BNVA) | payer MEDICARE, MEDICAID, SELFPAY ==
[2023-05-04 15:23] VITALS: BP 104/68; BP 112/72; BMI 31.3
== END ==
PROVIDERS: PCP Physician Assistant; Visit Provider Nurse Practitioner
DX: N20.0 Calculus of kidney (principal); R10.32 Left lower quadrant pain
CPT/HCPCS: 99202

== ENCOUNTER → 2024-10-20 23:59 | Outpatient (BNV) | payer MEDICARE, MEDICAID, SELFPAY ==
[2023-05-04 15:23] VITALS: BP 104/68; BP 112/72; BMI 31.3
--- NOTE | 2024-10-25 11:16 | A.OFFVIS_ITS ---
Intake Visit Reasons: Remote HF monitoring- [employer] Allergies rivaroxaban (From XARELTO) Adverse Reaction (Intermediate, Verified 10/24/24 08:35) LEG EDEMA, RASH PFSH Medical History (Reviewed 10/24/24 @ 08:23 by Ashlyn Ross [facility]) Heart failure with reduced ejection fraction Chronic radicular pain of lower back Chest pain Encounter for monitoring sotalol therapy Hypotension arterial Osteoporosis screening Transaminitis Biventricular ICD (implantable cardioverter-defibrillator) in place Nonischemic cardiomyopathy SVT (supraventricular tachycardia) PAF (paroxysmal atrial fibrillation) HLD (hyperlipidemia) HTN (hypertension) History of cardioversion Obesity (BMI 30-39.9) Graves' disease in remission Surgical History History of radiofrequency ablation procedure for cardiac arrhythmia History of cardiac defibrillator placement Hx of cardiac catheterization (~06/2017) Hx of tubal ligation Family History Father Stroke Hypertension Mother Hypertension Diabetes Daughter AVM (arteriovenous malformation) Son No problems noted. Sister No problems noted. Brother No problems noted. Brother No problems noted. Brother No problems noted. Brother No problems noted. Family/Other Pancreatic cancer Social History Household Members: Significant Other Housing: House Do you presently have visiting nurse or other home services: No Alcohol intake: never Comment: moderate risk Patient Tobacco Use Status: Never used Tobacco e-Cigarette/Vaping Use: Never Used Second Hand Smoke Exposure: No service: No Current occupational status: unemployed Cognitive needs: No Hearing needs: No Vision needs: Yes Female Reproductive History Menstrual Age of Menarche: 11 Office Procedures Cardiac Device Check Cardiac Device Check Details: Remote heart failure report generated 10/20/2024. Heart failure parameters are stable [id number] Cardiac Device Interrogation, cardio physiologic monitor Procedure code (CPT) selection complete Assessment & Plan Assessment & Plan (1) Biventricular ICD (implantable cardioverter-defibrillator) in place: Code(s): Z95.810 - Presence of automatic (implantable) cardiac defibrillator Category: Medical Plan: See above Coding Level of Care Code Procedure Only Diagnoses Biventricular ICD (implantable cardioverter-defibrillator) in place Z95.810 CPT Codes Cardiac Device Check - Cardiac Device 15: [id number] Cardiac Device Interrogation, cardio physiologic monitor ([id number])
== END ==
PROVIDERS: PCP Physician Assistant; Visit Provider Internal Medicine Cardiovascular Disease
DX: Z45.02 Encounter for adjustment and management of automatic implantable cardiac defibrillator (principal)
CPT/HCPCS: 93297

== ENCOUNTER → 2024-10-20 23:59 | Outpatient (BNV) | payer MEDICARE, MEDICAID, SELFPAY ==
[2023-05-04 15:23] VITALS: BP 104/68; BP 112/72; BMI 31.3
--- NOTE | 2024-10-25 11:18 | A.OFFVIS_ITS ---
Intake Visit Reasons: Remote ICD check-[employer] Allergies rivaroxaban (From XARELTO) Adverse Reaction (Intermediate, Verified 10/24/24 08:35) LEG EDEMA, RASH PFSH Medical History (Reviewed 10/24/24 @ 08:23 by Ashlyn Ross [facility]) Heart failure with reduced ejection fraction Chronic radicular pain of lower back Chest pain Encounter for monitoring sotalol therapy Hypotension arterial Osteoporosis screening Transaminitis Biventricular ICD (implantable cardioverter-defibrillator) in place Nonischemic cardiomyopathy SVT (supraventricular tachycardia) PAF (paroxysmal atrial fibrillation) HLD (hyperlipidemia) HTN (hypertension) History of cardioversion Obesity (BMI 30-39.9) Graves' disease in remission Surgical History History of radiofrequency ablation procedure for cardiac arrhythmia History of cardiac defibrillator placement Hx of cardiac catheterization (~06/2017) Hx of tubal ligation Family History Father Stroke Hypertension Mother Hypertension Diabetes Daughter AVM (arteriovenous malformation) Son No problems noted. Sister No problems noted. Brother No problems noted. Brother No problems noted. Brother No problems noted. Brother No problems noted. Family/Other Pancreatic cancer Social History Household Members: Significant Other Housing: House Do you presently have visiting nurse or other home services: No Alcohol intake: never Comment: moderate risk Patient Tobacco Use Status: Never used Tobacco e-Cigarette/Vaping Use: Never Used Second Hand Smoke Exposure: No service: No Current occupational status: unemployed Cognitive needs: No Hearing needs: No Vision needs: Yes Female Reproductive History Menstrual Age of Menarche: 11 Office Procedures Cardiac Device Check Cardiac Device Check Details: Remote ICD report generated 10/20/2024. Bi V pacing 97.5% of the time. ICD function is adequate [id number] Cardiac Interrogation, implant defibrillator w/interim Procedure code (CPT) selection complete Assessment & Plan Assessment & Plan (1) Biventricular ICD (implantable cardioverter-defibrillator) in place: Code(s): Z95.810 - Presence of automatic (implantable) cardiac defibrillator Category: Medical Plan: See above Coding Level of Care Code Procedure Only Diagnoses Biventricular ICD (implantable cardioverter-defibrillator) in place Z95.810 CPT Codes Cardiac Device Check - Cardiac Device 13: [id number] Cardiac Interrogation, implant defibrillator w/interim ([id number])
== END ==
PROVIDERS: PCP Physician Assistant; Visit Provider Internal Medicine Cardiovascular Disease
DX: Z45.02 Encounter for adjustment and management of automatic implantable cardiac defibrillator (principal)
CPT/HCPCS: 93295

== ENCOUNTER 2024-10-24 08:15 | Outpatient (AMB) | payer MEDICARE, MEDICAID, SELFPAY ==
[2023-05-04 15:23] VITALS: BP 104/68; BP 112/72; BMI 31.3
[2024-10-24 08:20] VITALS: BP 146/84; PULSE 80; TEMP 36.1; O2SAT 100; BMI 30.7
--- NOTE | 2024-10-24 08:20 | MHC.PC.OV ---
Vital Signs 10/24/24 08:20 Height 5 ft 9 in Weight 208 lb 2 oz BMI 30.7 BP 146/84 H Blood Pressure Location Lt brachial Position Sitting Pulse 80 Pulse Source Pulse Oximeter Temp 97.0 F Temp Source Temporal Artery Scan Pulse Oximetry (%) 100 Oxygen Delivery Method Room Air Intake Visit Reasons: ?llergy , itchy skin Allergies rivaroxaban (From XARELTO) Adverse Reaction (Intermediate, Verified 10/24/24 08:35) LEG EDEMA, RASH Medication List - Last Reconciled 10/24/24 by Jeremy Smith PA-C acetaminophen (Tylenol Extra Strength) 1,000 mg PO Q6H PRN apixaban (Eliquis) 5 mg PO BID artifi.tears(hypromellose)(PF) 0.3% 1 drp ophthalmic (eye) Q4-6H PRN blood pressure test kit-large As directed furosemide 40 mg PO DAILY leg brace (Knee Brace Large-XLarge) As directed naproxen 250 mg PO BEDTIME 5 days pyridoxine (vitamin B6) 100 mg PO DAILY 90 days sacubitril-valsartan 24-26 mg (Entresto) 1 tab PO BID 90 days sennosides (Senna Lax) 17.2 mg (2 x 8.6 mg) PO BEDTIME 30 days sotalol 120 mg (1.5 x 80 mg) PO BID 90 days tamsulosin (Flomax) 0.4 mg PO DAILY Tobacco use date assessed: 10/24/24 Fall risk assessment: No Falls in past year Last assessed Fall Risk: 10/24/24 Dental Screening Dental Screen Date: 10/24/24 Did you have a dental visit in the last 12 months?: Yes Did you have a dental problem in the last 6 months where you did not have access to dental care?: No Was dental information given to patient?: Patient has dentist HPI ?llergy , itchy skin HPI Details The patient is a 69-year-old female presenting with pruritus and nephrolithiasis. The pruritus has been ongoing for several months, characterized by intermittent episodes of itchiness primarily affecting the scalp and other areas of the body. The patient has tried [id number] antihistamines with some relief but continues to experience symptoms. No new medications, soaps, or lotions were introduced around the onset of symptoms, except for a new shampoo. The nephrolithiasis was identified following an episode of hematuria, prompting an emergency room visit where a CT scan revealed a 1.6 cm stone in the right kidney. The patient reports right-sided flank pain associated with the stone, and Flomax was prescribed to facilitate stone passage. The patient has not yet received the medication due to pharmacy delays. Preventative care measures include a planned colon cancer screening using Cologuard. [facility] Medical History Heart failure with reduced ejection fraction Chronic radicular pain of lower back Chest pain Encounter for monitoring sotalol therapy Hypotension arterial Osteoporosis screening Transaminitis Biventricular ICD (implantable cardioverter-defibrillator) in place Nonischemic cardiomyopathy SVT (supraventricular tachycardia) PAF (paroxysmal atrial fibrillation) HLD (hyperlipidemia) HTN (hypertension) History of cardioversion Obesity (BMI 30-39.9) Graves' disease in remission Surgical History History of radiofrequency ablation procedure for cardiac arrhythmia History of cardiac defibrillator placement Hx of cardiac catheterization (~06/2017) Hx of tubal ligation Family History Father Stroke Hypertension Mother Hypertension Diabetes Daughter AVM (arteriovenous malformation) Son No problems noted. Sister No problems noted. Brother No problems noted. Brother No problems noted. Brother No problems noted. Brother No problems noted. Family/Other Pancreatic cancer Social History Household Members: Significant Other Housing: House Do you presently have visiting nurse or other home services: No Alcohol intake: never Comment: moderate risk Patient Tobacco Use Status: Never used Tobacco e-Cigarette/Vaping Use: Never Used Second Hand Smoke Exposure: No service: No Current occupational status: unemployed Cognitive needs: No Hearing needs: No Vision needs: Yes Female Reproductive History Menstrual Age of Menarche: 11 Questionnaire PHQ-9 Over the last 2 weeks, how often have you been bothered by any of the following problems? 1. Little interest or pleasure in doing things: more than half the days 2. Feeling down, depressed, or hopeless: more than half the days 3. Trouble falling or staying asleep, or sleeping too much: more than half the days 4. Feeling tired or having little energy: more than half the days 5. Poor appetite or overeating: not at all 6. Feeling bad about yourself - or that you are a failure or have let yourself or your family down: not at all 7. Trouble concentrating on things, such as reading the newspaper or watching television: not at all 8. Moving or speaking so slowly that other people could have noticed. Or the opposite - being so fidgety or restless that you have been moving around a lot more than usual: not at all 9. Thoughts that you would be better off or of hurting yourself in some way: not at all Total score: 8 Depression Screening Interpretation: Positive Depression Screening Follow-up: Existing condition and In treatment Depression Screening Done: Yes 62014 - PHQ-9 Billing: Yes Source: Developed by Drs. Marty Hernandez, Shaylee Hernandez, Adelfo Khan and colleagues, with an educational ziggy from [employer]. Thrive Questionnaire Date Thrive assessed: 05/25/24 I am a: Patient What is your living situation today?: I have a steady place to live Within the past 12 months, did the food you bought not last and you didn't have the money to get more?: Never true Within the past 12 months, did you worry whether your food would run out before you got money to buy more?: Never true Do you have trouble paying for medicines?: No Do you have trouble getting transportation to medical appointments?: No Do you have trouble paying your heating and electricity bill?: No Do you have trouble taking care of your child, family member or friend?: No Do you have trouble with day-to-day activities such as bathing, preparing meals, shopping, managing finances, etc.?: No Are you currently unemployed and looking for a job?: No Are you interested in more education?: No Please select the resources that you would like help with: None Currently or been in a relationship where the following occur: I choose not to answer THRIVE Score: 0 AUDIT C Alcohol Use Questionnaire (AUDIT-C) 1. How often do you have a drink containing alcohol?: Never 3. How often do you have six or more drinks on one occasion?: Never Total Score: 0 GARETH-7 AMB Questionnaire GARETH-7 Date GARETH - 7 assessed: 05/25/24 Feeling nervous, anxious, or on edge: 0 = Not at all Not being able to stop or control worryin = Not at all Worrying too much about different things: 0 = Not at all Trouble relaxin = Not at all Being so restless that it is hard to sit still: 0 = Not at all Becoming easily annoyed or irritable: 0 = Not at all Feeling afraid as if something awful might happen: 0 = Not at all Total GARETH-7 score (0-4 normal; 5-9 mild; 10-14 moderate; 15-21 severe): 0 Source: Developed by Drs. Marty Hernandez, Shaylee Hernandez, Adelfo Khan and colleagues, with an educational ziggy from [employer]. Review of Systems Const Denies headache(s) Eyes Denies loss of vision ENT Denies vertigo, Denies dizziness, Denies headache(s) and Denies sore throat Card Denies chest pain, Denies leg edema and Denies lightheadedness Resp Denies cough, Denies hemoptysis and Denies wheezing GI Denies abdominal pain, Denies melena, Denies constipation, Denies diarrhea and Denies vomiting Details: + right flank pain Denies urinary frequency, Denies dysuria and Denies urinary urgency Musc Denies arthralgias, Denies joint swelling, Denies numbness and Denies tingling Neuro Denies Abnormal speech present, Denies behavioral changes, Denies vertigo, Denies dizziness, Denies headache(s), Denies loss of vision, Denies memory loss, Denies numbness and Denies tingling Psych Denies anxiety, Denies behavioral changes, Denies depression, Denies memory loss and Denies panic attacks Sky/Lymph Denies easy bleeding and Denies easy bruising Aller/Immun Denies wheezing Physical exam (Primary Care) Vital Signs: Last Vital Signs Temp 97.0 F 10/24/24 08:20 Pulse 80 10/24/24 08:20 BP 146/84 H 10/24/24 08:20 Pulse Ox 100 10/24/24 08:20 Oxygen Delivery Method Room Air 10/24/24 08:20 BMI result Body Mass Index 30.7 Tobacco/Smoking Status: Tobacco use Status Tobacco use date assessed 10/24/24 10/24/24 08:24 Patient Tobacco Use Status Never used Tobacco 10/24/24 08:24 e-Cigarette/Vaping Use Never Used 10/24/24 08:24 PHQ-9: PHQ-9 Score PHQ-9: Total score 8 10/24/24 08:24 Depression Screening Interpretation: Positive Depression Screening Follow-up: Existing condition and In treatment Thrive Assessment: Date of Thrive Assessment Date Thrive assessed 05/25/24 10/24/24 08:24 Currently or been in a relationship where the following occur: I choose not to answer Const General: healthy appearing, no acute distress, alert and awake Nutritional Appearance: well nourished Orientation/consciousness: oriented to person, oriented to place and oriented to time HENMT Ears: TM's normal bilaterally General nose exam: Normal nasal mucous membranes and turbinates present Eyes Conjunctivae: conjunctivae normal Sclerae: sclerae normal Pupils: Equal, round and reactive pupils present Neck Neck: Yes no lymphadenopathy and Yes no JVD Thyroid: Thyroid normal Carotids: no bruits Resp Effort & Inspection: normal respiratory effort and not tachypneic Auscultation: no crackles, no rales, no rhonchi and no wheezes Cardio Rate: regular rate Rhythm: regular rhythm Heart sounds: no murmurs and normal S1 and S2 GI Palpation (GI): Soft to palpation, nontender, no hepatomegaly and no splenomegaly Auscultation: normal bowel sounds Skin General skin exam: no rashes or lesions noted and dry skin Neuro General: oriented to person, oriented to place and oriented to time Cranial nerves: Yes Equal, round and reactive pupils present Speech: No Abnormal speech present Gait exam (Neuro): Normal gait present Motor exam (neuro): no tremor noted Extrem Right upper extremity: full ROM Left upper extremity: full ROM Right lower extremity: full ROM; no edema Left lower extremity: full ROM; no edema Psych Mental Status: mental status grossly normal Speech and movement: Normal speech and movement present Affect: normal affect Attitude: cooperative Thought process: Normal thought process present Coding Level of Care Code Est Pt Level 4 (65656) Diagnoses Generalized pruritus of unknown etiology L29.9 Bilateral renal stones N20.0 Additional Codes PHQ-9 - 99723 - PHQ-9 Billing: Yes ([id number]) Assessment & Plan Assessment & Plan (1) Generalized pruritus of unknown etiology: Code(s): L29.9 - Pruritus, unspecified Category: Medical Plan: The patient will be started on Montelukast (Singulair) to manage the pruritus, as previous antihistamines provided limited relief. A prednisone taper was discussed as an alternative if Montelukast is ineffective. (2) Bilateral renal stones: Code(s): N20.0 - Calculus of kidney Category: Medical Plan: Flomax has been prescribed to aid in the passage of the kidney stone, and the patient is advised to maintain adequate hydration. Pain management options include Naproxen and potentially Tramadol if pain becomes severe. Orders: Orders Lipid Panel Today I50.32 - Chronic diastolic (congestive) heart failure TSH reflex Free T4 Today E05.00 - Thyrotoxicosis with diffuse goiter without thyrotoxic crisis or storm Hemoglobin A1c Today R73.09 - Other abnormal glucose Comprehensive [place]. Panel Fast Today R73.09 - Other abnormal glucose Complete Blood Count no Diff Today R73.09 - Other abnormal glucose Medications: New montelukast 10 mg PO BEDTIME 30 tabs 1RF 30 days J30.1 - Allergic rhinitis due to pollen tramadol 50 mg PO DAILY PRN 7 tabs 0RF pain 7 days N20.0 - Calculus of kidney
--- OUTSIDE RECORDS SUMMARY | 2024-10-24 09:32 | XMS_ITS | Clinical Summary ---
Author Organization [address] [facility] Address [address] [place] [address] Phone Care Team Providers Care Siderographer Name Role Phone Jeremy Smith Primary Care [...] PM EDT Office Visit Orthopedic Surgery - [place] [address] [phone] Nick Pozo, [place] [address] [address] Health Maintenance Due Date Last Done Comments [...] Insurance MEDICARE MEDICAID - [place] Care Teams Siderographer Relationship Specialty Start Date End Date Jeremy Smith PA [address] [place] [address] PCP - General Physician Managing Manager 07/25/24
== END 2024-10-24 08:56 | disposition home or self-care (01) ==
LOC: HO.HMCH 08:15
PROVIDERS: PCP Physician Assistant; Visit Provider Physician Assistant
DX: L29.9 Pruritus, unspecified (principal); N20.0 Calculus of kidney

== ENCOUNTER → 2024-10-24 08:15 | Outpatient (BNVA) | payer MEDICARE, MEDICAID, SELFPAY ==
[2023-05-04 15:23] VITALS: BP 104/68; BP 112/72; BMI 31.3
== END ==
PROVIDERS: PCP Physician Assistant; Visit Provider Physician Assistant
DX: N20.0 Calculus of kidney (principal); L29.9 Pruritus, unspecified; I50.32 Chronic diastolic (congestive) heart failure; E05.00 Thyrotoxicosis with diffuse goiter without thyrotoxic crisis or storm; R73.09 Other abnormal glucose; J30.1 Allergic rhinitis due to pollen
CPT/HCPCS: 96127; 99212

== ENCOUNTER → 2024-11-20 23:59 | Outpatient (BNV) | payer MEDICARE, MEDICAID, SELFPAY ==
[2023-05-04 15:23] VITALS: BP 104/68; BP 112/72; BMI 31.3
--- NOTE | 2024-11-22 10:53 | A.OFFVIS_ITS ---
Intake Visit Reasons: Remote HF monitoring- [employer] Allergies rivaroxaban (From XARELTO) Adverse Reaction (Intermediate, Verified 10/24/24 08:35) LEG EDEMA, RASH PFSH Medical History Heart failure with reduced ejection fraction Chronic radicular pain of lower back Chest pain Encounter for monitoring sotalol therapy Hypotension arterial Osteoporosis screening Transaminitis Biventricular ICD (implantable cardioverter-defibrillator) in place Nonischemic cardiomyopathy SVT (supraventricular tachycardia) PAF (paroxysmal atrial fibrillation) HLD (hyperlipidemia) HTN (hypertension) History of cardioversion Obesity (BMI 30-39.9) Graves' disease in remission Surgical History History of radiofrequency ablation procedure for cardiac arrhythmia History of cardiac defibrillator placement Hx of cardiac catheterization (~06/2017) Hx of tubal ligation Family History Father Stroke Hypertension Mother Hypertension Diabetes Daughter AVM (arteriovenous malformation) Son No problems noted. Sister No problems noted. Brother No problems noted. Brother No problems noted. Brother No problems noted. Brother No problems noted. Family/Other Pancreatic cancer Social History Household Members: Significant Other Housing: House Do you presently have visiting nurse or other home services: No Alcohol intake: never Comment: moderate risk Patient Tobacco Use Status: Never used Tobacco e-Cigarette/Vaping Use: Never Used Second Hand Smoke Exposure: No service: No Current occupational status: unemployed Cognitive needs: No Hearing needs: No Vision needs: Yes Female Reproductive History Menstrual Age of Menarche: 11 Office Procedures Cardiac Device Check Cardiac Device Check Details: Remote heart failure report generated 11/20/2024. Heart failure parameters are within normal limits [id number] Cardiac Device Interrogation, cardio physiologic monitor Procedure code (CPT) selection complete Assessment & Plan Assessment & Plan (1) Biventricular ICD (implantable cardioverter-defibrillator) in place: Code(s): Z95.810 - Presence of automatic (implantable) cardiac defibrillator Category: Medical Plan: See above Coding Level of Care Code Procedure Only Diagnoses Biventricular ICD (implantable cardioverter-defibrillator) in place Z95.810 CPT Codes Cardiac Device Check - Cardiac Device 15: [id number] Cardiac Device Interrogation, cardio physiologic monitor ([id number])
== END ==
PROVIDERS: PCP Physician Assistant; Visit Provider Internal Medicine Cardiovascular Disease
DX: Z45.02 Encounter for adjustment and management of automatic implantable cardiac defibrillator (principal)
CPT/HCPCS: 93297

== ENCOUNTER 2024-11-21 06:53 | Outpatient (REF) | payer MEDICARE, MEDICAID, SELFPAY ==
[2023-05-04 15:23] VITALS: BP 104/68; BP 112/72; BMI 31.3
--- OUTSIDE RECORDS SUMMARY | 2024-11-21 06:55 | XMS_ITS | Clinical Summary ---
Author Organization 175 [facility] Address [address] [place] [address] Phone Care Team Providers Care Commercial Mortgage Broker Name Role Phone Jeremy Smith Primary Care Provider Allergies Active Allergy Reactions Criticality Noted Date Comments Rivaroxaban 07/12/2024 Medications No known medications Encounters Date Type Department Care Team Description 11/07/2024 2:30 PM EDT Office Visit Orthopedic [facility] [address] [phone] Nick Pozo DPM Foreign body in right foot, sequela (Primary Dx); Pain in right foot from Last 3 Months Social History Tobacco Use Types Packs/Day Years Used Date Smoking Tobacco: Never Assessed Comments Unknown Sex and Gender Information Value Date Recorded Sex Assigned at Not on file Legal Sex Female 4:27 PM EDT Gender Identity Not on file Sexual Orientation Not on file Plan of Treatment Upcoming Encounters Date Type Department Care Team ([facility] st Contact Info) Description 02/06/2025 11:00 AM EST Office Visit [facility] [address] [phone] Nick Pozo DPM [address] [address] Health Maintenance Due Date Last Done Comments Breast Cancer Screening 1955 Colorectal Cancer Screening: Colonoscopy 1955 DTaP,Tdap,and Td Vaccines (1 - Tdap) 1973 Pneumococcal Vaccine: 50+ Years (1 of 1 - PCV) 2004 Zoster Vaccines (1 of 2) 2004 Depression Screening 02/09/2024 Falls Risk Assessment 06/06/2024 Hepatitis C Screening 06/06/2024 Medicare Annual Wellness Visit 06/06/2024 Osteoporosis Screening (Bone Density Screening) 06/06/2024 Social Influencers of Health Screening 06/06/2024 COVID-19 Vaccine (2024-2 6 season) 2024 02/19/2021, 05/31/2020, 05/03/2020 Influenza Vaccine (#1) 2024 , 12/15/2021 RSV Immunization Adult Patients (1 - 1-dose 75+ series) 2029 Colorectal Cancer Screening: FIT-DNA (Cologuard) Discontinued 11/05/2020, 11/05/2020 HIB Vaccines Aged Out No longer eligi [...] 20 months Aged Out No longer eligible based on patient's age to complete this topic Varicella Vaccines Aged Out No longer eligible based on patient's age to complete this topic Insurance MEDICARE MEDICAID - [place] Care Teams Commercial Mortgage Broker Relationship Specialty Start Date End Date Jeremy Smith PA [address] [place] [phone] PCP - General Physician Business Education Instructor 07/25/24
[2024-11-21 07:33] LABS: Hematocrit 37.9 % (37.0-47.0); Hemoglobin 12.5 g/dl (12.0-16.0); Mean Corpuscular HGB Conc 33.0 g/dl (31.0-35.0); Mean Corpuscular Hemoglobin 28.8 pg (27.0-33.0); Mean Corpuscular Volume 87.3 fL (80.0-98.0); NRBC Abs Auto 0.000 X10*3/uL (0.0-0.012); NRBC Pct Auto 0.0 /100WBC (0.0-0.2); Platelet Count 222 X10*3/uL (160-400); Red Blood Count 4.34 X10*6/uL (4.20-5.50); White Blood Count 7.5 X10*3/uL (4.8-10.8)
[2024-11-21 08:15] LABS: Alanine Aminotransferase 25 U/L (0-31); Albumin Level 4.5 g/dL (3.5-5.0); Alkaline Phosphatase 100 U/L (39-117); Anion Gap 10 (12-20); Aspartate Amino Transferase 27 U/L (5-31); Blood Urea Nitrogen 12 mg/dL (9-16); Calcium 9.4 mg/dL (8.4-10.2); Carbon Dioxide 30 mmol/L (22-29); Chloride 108 mmol/L (96-108); Cholesterol 204 mg/dL (<200); Estimated Glomerular Filt Rate > 60; HDL Cholesterol 51 mg/dL (>40); Potassium 4.4 mmol/L (3.3-5.1); Sodium 144 mmol/L (135-145); Total Protein 7.1 g/dL (6.5-8.0); Triglycerides 172 mg/dL (<150)
== END 2024-11-21 06:54 | disposition home or self-care (01) ==
LOC: HO.LAB 06:53
PROVIDERS: PCP Physician Assistant; Visit Provider Physician Assistant
DX: I50.32 Chronic diastolic (congestive) heart failure (principal); E05.00 Thyrotoxicosis with diffuse goiter without thyrotoxic crisis or storm; R73.09 Other abnormal glucose
CPT/HCPCS: 36415; 80053; 80061; 83036; 84443; 85027

== ENCOUNTER 2024-11-28 10:51 | Outpatient (AMB) | payer MEDICARE, MEDICAID, SELFPAY ==
[2023-05-04 15:23] VITALS: BP 104/68; BP 112/72; BMI 31.3
--- NOTE | 2024-11-28 10:55 | MHC.PC.OV ---
Vital Signs 11/28/24 10:56 Height 5 ft 9 in Blood Pressure Location Lt brachial Position Sitting Pulse Source Pulse Oximeter Temp Source Temporal Artery Scan Oxygen Delivery Method Room Air Intake Visit Reasons: pe Intake Note: Patient is here today for a physical. Utility Manager Required: No Manufacturing Technician: Not Required per policy Accompanied by: Self / Same As Patient Allergies rivaroxaban (From XARELTO) Adverse Reaction (Intermediate, Verified 11/28/24 10:56) LEG EDEMA, RASH Tobacco use date assessed: 11/28/24 Fall risk assessment: No Falls in past year Last assessed Fall Risk: 11/28/24 Dental Screening Dental Screen Date: 10/24/24 [facility] Medical History Heart failure with reduced ejection fraction Chronic radicular pain of lower back Chest pain Encounter for monitoring sotalol therapy Hypotension arterial Osteoporosis screening Transaminitis Biventricular ICD (implantable cardioverter-defibrillator) in place Nonischemic cardiomyopathy SVT (supraventricular tachycardia) PAF (paroxysmal atrial fibrillation) HLD (hyperlipidemia) HTN (hypertension) History of cardioversion Obesity (BMI 30-39.9) Graves' disease in remission Surgical History History of radiofrequency ablation procedure for cardiac arrhythmia History of cardiac defibrillator placement Hx of cardiac catheterization (~06/2017) Hx of tubal ligation Family History Father Stroke Hypertension Mother Hypertension Diabetes Daughter AVM (arteriovenous malformation) Son No problems noted. Sister No problems noted. Brother No problems noted. Brother No problems noted. Brother No problems noted. Brother No problems noted. Family/Other Pancreatic cancer Social History Household Members: Significant Other Housing: House Do you presently have visiting nurse or other home services: No Alcohol intake: never Comment: moderate risk Patient Tobacco Use Status: Never used Tobacco e-Cigarette/Vaping Use: Never Used Second Hand Smoke Exposure: No service: No Current occupational status: unemployed Cognitive needs: No Hearing needs: No Vision needs: Yes Female Reproductive History Menstrual Age of Menarche: 11 Questionnaire Thrive Questionnaire Date Thrive assessed: 10/24/24 I am a: Patient What is your living situation today?: I have a steady place to live Within the past 12 months, did the food you bought not last and you didn't have the money to get more?: Never true Within the past 12 months, did you worry whether your food would run out before you got money to buy more?: Never true Do you have trouble paying for medicines?: No Do you have trouble getting transportation to medical appointments?: No Do you have trouble paying your heating and electricity bill?: No Do you have trouble taking care of your child, family member or friend?: No Do you have trouble with day-to-day activities such as bathing, preparing meals, shopping, managing finances, etc.?: No Are you currently unemployed and looking for a job?: No Are you interested in more education?: No Please select the resources that you would like help with: None Currently or been in a relationship where the following occur: I choose not to answer THRIVE Score: 0 GARETH-7 AMB Questionnaire GARETH-7 Date GARETH - 7 assessed: 05/25/24 Source: Developed by Drs. Marty Hernandez, Shaylee Hernandez, Adelfo Khan and colleagues, with an educational ziggy from [employer] Physical exam (Primary Care) Tobacco/Smoking Status: Tobacco use Status Tobacco use date assessed 10/24/24 10/24/24 08:24 Patient Tobacco Use Status Never used Tobacco 10/24/24 08:24 e-Cigarette/Vaping Use Never Used 10/24/24 08:24 Thrive Assessment: Date of Thrive Assessment Date Thrive assessed 10/24/24 11/28/24 10:52 Currently or been in a relationship where the following occur: I choose not to answer Coding
[2024-11-28 10:56] VITALS: BP 132/60; PULSE 76; TEMP 36.3; O2SAT 98; BMI 30.8
--- NOTE | 2024-11-28 11:00 | AM.OFFVISMDC ---
Intake Vital Signs 11/28/24 10:56 Height 5 ft 9 in Weight 208 lb 8 oz BMI 30.8 BP 132/60 Blood Pressure Location Lt brachial Position Sitting Pulse 76 Pulse Source Pulse Oximeter Temp 97.3 F Temp Source Temporal Artery Scan Pulse Oximetry (%) 98 Oxygen Delivery Method Room Air Intake Visit Reasons: pe Intake Note: Patient is here for an Annual Wellness Visit. Certified Medical Asst Required: No Analytical Laboratory Technician: Analytical Laboratory Technician offered & declined Accompanied by: Self / Same As Patient Allergies rivaroxaban (From XARELTO) Adverse Reaction (Intermediate, Verified 11/28/24 11:14) LEG EDEMA, RASH Medication List - Last Reconciled 11/28/24 by Jeremy Smith PA-C acetaminophen (Tylenol Extra Strength) 1,000 mg PO Q6H PRN apixaban (Eliquis) 5 mg PO BID artifi.tears(hypromellose)(PF) 0.3% 1 drp ophthalmic (eye) Q4-6H PRN blood pressure test kit-large As directed furosemide 40 mg PO DAILY leg brace (Knee Brace Large-XLarge) As directed montelukast 10 mg PO BEDTIME 30 days naproxen 250 mg PO BEDTIME 5 days pyridoxine (vitamin B6) 100 mg PO DAILY 90 days sacubitril-valsartan 24-26 mg (Entresto) 1 tab PO BID 90 days sennosides (Senna Lax) 17.2 mg (2 x 8.6 mg) PO BEDTIME 30 days sotalol 120 mg (1.5 x 80 mg) PO BID 90 days tamsulosin (Flomax) 0.4 mg PO DAILY tramadol 50 mg PO DAILY PRN 7 days HPI pe HPI Details Patient is a 69-year-old female here today for a routine annual physical.? Patient has a past medical history significant for paroxysmal AFib, congestive heart failure with reduced ejection fraction, implantable defibrillator, SVT, hypertension, fibromyalgia, ? Anxiety, Graves disease, obesity. Concern--> reports having constipation as of late and has been trying to drink more fluids though has not been effective. She did have a Cologuard in 2020 which was negative though now interested in getting a colonoscopy. --> she also does report having lower right back pain over the last 4 days. She can not recall any injuries or lifting incidents. She has been using Tylenol though has not been effective. Major depressive disorder: she reports she continues to have some depression due to recent in her family. She has lost follow-up with her psychiatrist and can not make an appointment. She is willing to start up low-dose SSRI therapy to help her with her mood and depression. p-AFIB/ presence of implanted defibrillator : Patient is followed by Cardiology and has been euvolemic and without any further shortness of breath.? Did have cardio ablation in 2019. She continues on Eliquis 5 mg b.i.d. without any significant overt signs of bleeding. Her defibrillator regularly gets checked by her garbage depot worker. .. Congestive heart failure with reduced ejection fraction: Has not had any exacerbations recently. Continues to follow cardiology. Noted most recent liver enzymes slightly elevated in April of 2022, will recheck at earliest convenience per .. ?anxiety:? Still suffers with anxiety though has been managed well with p.r.n. use clonazepam and talking to her therapist. Vaccine: Up-to-date with COVID vaccine, considering flu, pneumonia and tetanus Colorectal cancer screening: Followed by GI Mammogram: need mammo HPI Comments History of Present Illness Details reviewed past medical history- yes reviewed surgical / hospitalization history- yes reviewed current medications- yes reviewed family history- yes home safety throw rugs? grab bars? raised toilet seat? working smoke detectors? activities of daily living difficulty bathing or showering? difficulty dressing? difficulty using the toilet? difficulty getting in and out of bed? difficulty walking? receives help from other person's with any of the above tasks? instrumental activities of daily living uses telephone - gets to place out of walking distance- go shopping for groceries- repairs own meals- does own minor home maintenance- does own laundry- does own housework- manages own money- currently takes medication- end of life planning discussed advanced directives- yes advanced directives on file? discussed wishes expressed in advanced directives. fall risk have you had any falls with injuries in the past year? have you had 2 or more falls in the past year? fall risk assessment: [facility] Medical History Heart failure with reduced ejection fraction Chronic radicular pain of lower back Chest pain Encounter for monitoring sotalol therapy Hypotension arterial Osteoporosis screening Transaminitis Biventricular ICD (implantable cardioverter-defibrillator) in place Nonischemic cardiomyopathy SVT (supraventricular tachycardia) PAF (paroxysmal atrial fibrillation) HLD (hyperlipidemia) HTN (hypertension) History of cardioversion Obesity (BMI 30-39.9) Graves' disease in remission Surgical History History of radiofrequency ablation procedure for cardiac arrhythmia History of cardiac defibrillator placement Hx of cardiac catheterization (~06/2017) Hx of tubal ligation Family History Father Stroke Hypertension Mother Hypertension Diabetes Daughter AVM (arteriovenous malformation) Son No problems noted. Sister No problems noted. Brother No problems noted. Brother No problems noted. Brother No problems noted. Brother No problems noted. Family/Other Pancreatic cancer Social History Household Members: Significant Other Housing: House Do you presently have visiting nurse or other home services: No Alcohol intake: never Comment: moderate risk Patient Tobacco Use Status: Never used Tobacco e-Cigarette/Vaping Use: Never Used Second Hand Smoke Exposure: No service: No Current occupational status: unemployed Cognitive needs: No Hearing needs: No Vision needs: Yes Female Reproductive History Menstrual Age of Menarche: 11 Questionnaire Medicare Wellness Checkup [age] What gender do you identify with?: female During the past 4 weeks, how much have you been bothered by emotional problems such as feeling anxious, depressed, irritable, sad or downhearted, and blue?: moderately During the past 4 weeks, has your physical & emotional health limited your social activities with family, friends, neighbors, or groups?: slightly During the past 4 weeks, how much bodily pain have you generally had?: severe pain During the past 4 weeks, was someone available to help you if you needed & wanted help?: yes, a little During the past 4 weeks, what was the hardest physical activity you could do for at least 2 minutes?: very light Can you get to places out of walking distance without help? (For eg., can you travel alone on buses, taxis or drive your car?): No Can you go shopping for groceries or clothes without someone's help?: No Can you prepare your own meals?: Yes Can you do your housework without help?: No Because of any health problems, do you need the help of another person with your personal care needs such as eating, bathing, dressing or getting around the house?: Yes Can you handle your own money without help?: Yes During the past 4 weeks, how would you rate your health in general?: fair During the past 4 weeks how have things been going for you?: good & bad parts about equal Are you having difficulties driving your car?: no Do you always fasten your seat belt when you are in a car?: yes, usually During past 4 weeks, have you been bothered by the following: never: Falling or dizzy when standing up, Sexual problems?, Trouble eating well?, Teeth or denture problems? and Problems using the telephone? and sometimes: Tiredness or fatigue? Have you fallen 2 or more times in the past year?: No Are you afraid of falling?: Yes Are you a smoker?: no During the past 4 weeks, how many drinks of wine, beer, or other alcoholic beverages did you have?: no alcohol at all Do you exercise for about 20 minutes 3 or more times a week?: yes, some of the time Have you been given information to help with the following?: yes: Keeping track of your medications? and no: Hazards in your house that might hurt you? How often do you have trouble taking medicines the way you have been told to take them?: I always take medicine as prescribed How confident are you that you can control & manage most of your health problems?: somewhat confident What is your race?: or origin or descent PHQ-9 Over the last 2 weeks, how often have you been bothered by any of the following problems? 1. Little interest or pleasure in doing things: several days 2. Feeling down, depressed, or hopeless: several days 3. Trouble falling or staying asleep, or sleeping too much: several days 4. Feeling tired or having little energy: not at all 5. Poor appetite or overeating: not at all 6. Feeling bad about yourself - or that you are a failure or have let yourself or your family down: not at all 7. Trouble concentrating on things, such as reading the newspaper or watching television: not at all 8. Moving or speaking so slowly that other people could have noticed. Or the opposite - being so fidgety or restless that you have been moving around a lot more than usual: not at all 9. Thoughts that you would be better off or of hurting yourself in some way: not at all Total score: 3 Depression Screening Interpretation: Positive Depression Screening Done: Yes Source: Developed by Drs. Marty Hernandez, Adelfo Powell and colleagues, with an educational ziggy from [employer]. Thrive Questionnaire Date Thrive assessed: 05/25/24 I am a: Patient What is your living situation today?: I have a steady place to live Within the past 12 months, did the food you bought not last and you didn't have the money to get more?: Never true Within the past 12 months, did you worry whether your food would run out before you got money to buy more?: Never true Do you have trouble paying for medicines?: No Do you have trouble getting transportation to medical appointments?: No Do you have trouble paying your heating and electricity bill?: No Do you have trouble taking care of your child, family member or friend?: No Do you have trouble with day-to-day activities such as bathing, preparing meals, shopping, managing finances, etc.?: No Are you currently unemployed and looking for a job?: No Are you interested in more education?: No Please select the resources that you would like help with: None Currently or been in a relationship where the following occur: I choose not to answer THRIVE Score: 0 GARETH-7 AMB Questionnaire GARETH-7 Date GARETH - 7 assessed: 05/25/24 Source: Developed by Drs. Marty Hernandez, Adelfo Powell and colleagues, with an educational ziggy from [employer]. Physical Exam Vital Signs: Last Vital Signs Temp 97.3 F 11/28/24 10:56 Pulse 76 11/28/24 10:56 BP 132/60 11/28/24 10:56 Pulse Ox 98 11/28/24 10:56 Oxygen Delivery Method Room Air 11/28/24 10:56 BMI result Body Mass Index 30.8 HEENT Other: hearing screening whisper test- Eyes Other: vision screening- Other: urinary incontinence? Neuro Other: balance Romberg- tandem walk test- walk-in turned test- rise from sit to stand- Office Procedures Flu Questionnaire Does the patient have a severe egg allergy?: No Does the patient have severe life threatening allergies?: No Does the patient have a fever or illness today?: No Has the patient ever had Guillain-[place] Syndrome?: No Has the patient ever had any past reaction to a flu shot?: No Immunizations Fluarix [id number] (PF) 45 mcg (15 mcg x 3)/0.5 mL IM syringe Performing Provider: Jeremy Smith PA-C [facility] Administered by: TOYA Beltre on 11/28/24 11:56 Dose Route Admin Location Dispensed Lot Number Expiration Date NDC Shank Stitcher 0.5 mL IM Left Deltoid 0.5 mL [id number] 08/07/25 14978-117-09 My[employer]er VIS Given Date VIS Provided VIS Publication Date 11/28/24 Single Vaccine 24 Eligibility Eligibility Date Funding Source Not VF Eligible 11/28/24 Private Assessment & Plan Assessment & Plan Orders: Orders Influenza [id number] Immunization Today Z23 - Encounter for immunization MM screening mammo BI Today Z12.31 - Encounter for screening mammogram for malignant neoplasm of breast Medications: New ciclopirox 0.77% 1 appl topical BID 30 grams 0RF 4 weeks B35.3 - Tinea pedis Changed From tramadol 50 mg PO DAILY 7 days PRN 7 tabs 0RF pain N20.0 - Calculus of kidney To tramadol 50 mg PO BID PRN 14 tabs 0RF pain 7 days N20.0 - Calculus of kidney From montelukast 10 mg PO BEDTIME 30 days 30 tabs 1RF J30.1 - Allergic rhinitis due to pollen To montelukast 10 mg PO BEDTIME 90 tabs 1RF 90 days J30.1 - Allergic rhinitis due to pollen Refilled tamsulosin (Flomax) 0.4 mg PO DAILY 30 caps 1RF N20.0 - Calculus of kidney, R10.32 - Left lower quadrant pain naproxen 250 mg PO BEDTIME 5 tabs 0RF 5 days Quality Reporting (2019) Depression/Bipolar (159/160/161/177) PHQ-9: Total score: 3 Coding
== END 2024-11-28 11:59 | disposition home or self-care (01) ==
LOC: HO.HMCH 10:52
PROVIDERS: PCP Physician Assistant; Visit Provider Physician Assistant
DX: Z23 Encounter for immunization (principal)

== ENCOUNTER → 2024-11-28 10:51 | Outpatient (BNVA) | payer MEDICARE, MEDICAID, SELFPAY ==
[2023-05-04 15:23] VITALS: BP 104/68; BP 112/72; BMI 31.3
== END ==
PROVIDERS: PCP Physician Assistant; Visit Provider Physician Assistant
DX: Z00.00 Encounter for general adult medical examination without abnormal findings (principal); I48.0 Paroxysmal atrial fibrillation; I11.0 Hypertensive heart disease with heart failure; I50.32 Chronic diastolic (congestive) heart failure; F32.9 Major depressive disorder, single episode, unspecified; F41.9 Anxiety disorder, unspecified; M54.50 Low back pain, unspecified; F32.0 Major depressive disorder, single episode, mild; I42.8 Other cardiomyopathies; B35.3 Tinea pedis; N20.0 Calculus of kidney; J30.1 Allergic rhinitis due to pollen; Z23 Encounter for immunization; Z95.810 Presence of automatic (implantable) cardiac defibrillator
CPT/HCPCS: 90471; 90656; 96127

== ENCOUNTER 2024-12-07 10:39 | Outpatient (AMB) | payer MEDICARE, MEDICAID, SELFPAY ==
[2023-05-04 15:23] VITALS: BP 104/68; BP 112/72; BMI 31.3
--- NOTE | 2024-12-07 10:50 | A.OFFVIS_ITS ---
Vital Signs 12/07/24 10:51 Height 5 ft 9 in Weight 207 lb 3.752 oz BMI 30.6 BP 96/60 Blood Pressure Location Lt brachial Position Sitting Pulse 127 H Intake Visit Reasons: 6 mth w/ ekg and medtronic ck per NS Intake Note: 6 month follow-up with ekg and medtronic check c/o low bp and high HR [employer] Supervisor Required: No Allergies rivaroxaban (From XARELTO) Adverse Reaction (Intermediate, Verified 11/28/24 11:14) LEG EDEMA, RASH Medication List - Last Reconciled 12/07/24 by Andres Bruno MD acetaminophen (Tylenol Extra Strength) 1,000 mg PO Q6H PRN apixaban (Eliquis) 5 mg PO BID artifi.tears(hypromellose)(PF) 0.3% 1 drp ophthalmic (eye) Q4-6H PRN blood pressure test kit-large As directed ciclopirox 0.77% 1 appl topical BID 4 weeks furosemide 40 mg PO DAILY leg brace (Knee Brace Large-XLarge) As directed montelukast 10 mg PO BEDTIME 90 days pyridoxine (vitamin B6) 100 mg PO DAILY 90 days sacubitril-valsartan 24-26 mg (Entresto) 1 tab PO BID 90 days sennosides (Senna Lax) 17.2 mg (2 x 8.6 mg) PO BEDTIME 30 days sotalol 120 mg (1.5 x 80 mg) PO BID 90 days tamsulosin (Flomax) 0.4 mg PO DAILY tramadol 50 mg PO BID PRN 7 days HPI Comments Details: Iliana comes to the office today not feeling well. She is more tired and short of breath over the last 3 days. She thought that she was out of rhythm but did not seek emergency care because of possible waiting time. She came in for a regular office with a today he is noted to be in atrial fibrillation since Wednesday. Her rates not well controlled. She has been taking her sotalol r eligiously at 120 mg b.i.d. and has done well in the past with it. She is also taking oral anticoagulation religiously. She has been taking her Entresto as well as Lasix. She has notice that her blood pressures been very variable since she has been in AFib with some blood pressure in his 80s and some in the 130s. She has not had any lightheadedness or syncope. She has not noticed orthopnea, PND, leg edema. No obvious bleeding issues or neurologic events. [facility] Medical History Heart failure with reduced ejection fraction Chronic radicular pain of lower back Chest pain Encounter for monitoring sotalol therapy Hypotension arterial Osteoporosis screening Transaminitis Biventricular ICD (implantable cardioverter-defibrillator) in place Nonischemic cardiomyopathy SVT (supraventricular tachycardia) PAF (paroxysmal atrial fibrillation) HLD (hyperlipidemia) HTN (hypertension) History of cardioversion Obesity (BMI 30-39.9) Graves' disease in remission Surgical History History of radiofrequency ablation procedure for cardiac arrhythmia History of cardiac defibrillator placement Hx of cardiac catheterization (~06/2017) Hx of tubal ligation Family History Father Stroke Hypertension Mother Hypertension Diabetes Daughter AVM (arteriovenous malformation) Son No problems noted. Sister No problems noted. Brother No problems noted. Brother No problems noted. Brother No problems noted. Brother No problems noted. Family/Other Pancreatic cancer Social History Household Members: Significant Other Housing: House Do you presently have visiting nurse or other home services: No Alcohol intake: never Comment: moderate risk Patient Tobacco Use Status: Never used Tobacco e-Cigarette/Vaping Use: Never Used Second Hand Smoke Exposure: No service: No Current occupational status: unemployed Cognitive needs: No Hearing needs: No Vision needs: Yes Female Reproductive History Menstrual Age of Menarche: 11 Review of Systems Const Denies chills, Reports fatigue, Denies fever(s), Denies frequent falls, Reports lethargy, Reports weakness, Denies weight gain, Denies weight loss and Reports other (Variable blood pressure) ENT Denies dizziness Card Denies chest pain, Denies leg edema, Denies lightheadedness, Denies palpitations, Denies dyspnea, Reports dyspnea on exertion, Denies orthopnea and Denies other (loss of consciousness) Resp Denies cough, Denies dyspnea and Reports dyspnea on exertion GI Denies hematochezia and Denies change in stool character Musc Denies abnormal gait, Denies muscle weakness, Denies numbness, Denies radiating pain into limb and Denies tingling Neuro Denies abnormal gait, Denies dizziness, Denies frequent falls, Denies numbness, Denies tingling and Reports weakness Endo Reports fatigue and Denies palpitations Physical Exam Vital Signs: Last Vital Signs Pulse 127 H 12/07/24 10:51 BP 96/60 12/07/24 10:51 BMI result Body Mass Index 30.6 Const General: cooperative, healthy appearing, comfortable, no acute distress and tired appearing Nutritional Appearance: obese Orientation/consciousness: patient oriented x3 Neck Neck: Yes normal visual inspection and Yes no JVD Carotids: normal carotid upstroke Chest Chest palpation & inspection: normal inspection of the chest Resp Effort & Inspection: normal respiratory effort Auscultation: clear to auscultation bilaterally, no crackles, no rales, no rhonchi and no wheezes Cardio Jugular venous distension: no JVD Rate: tachycardic Rhythm: abnormal rhythm irregularly irregular Heart sounds: S1 normal heart sound present, S2 normal heart sound present, no murmurs and no rubs Neuro General: patient oriented x3 Extrem General: Yes normal to inspection, No no pedal edema and No calf tenderness Psych Appearance: grossly normal Mental Status: mental status grossly normal Speech and movement: Normal speech and movement present Office Procedures Cardiac Device Check Cardiac Device Check Details: Biventricular Medtronic ICD in place. In atrial fibrillation since November. Could not check anything else. That has intermittent biventricular pacer spikes noted but QRS complex does not change. Battery life is adequate [id number] Cardiac Device Check, multi lead implantable defibrillator Procedure code (CPT) selection complete EKG Details: EKGs shows wide complex rhythm due to atrial fibrillation with rapid ventricular response with aberrancy as well as intermittent ventricular pacing which Mibi ineffective with PVCs. [id number], Complete Assessment & Plan Assessment & Plan (1) Atrial fibrillation with rapid ventricular response: Code(s): I48.91 - Unspecified atrial fibrillation Category: Medical Plan: Atrial fibrillation rapid ventricular response symptomatic with symptoms fatigue and shortness of breath which has been in his symptoms in the past and with variable blood pressure due to variable stroke volume. Patient has prior history of rapid atrial fibrillation and has gone multiple interventions including ablation currently maintenance sotalol therapy. She has not tolerated amiodarone therapy in the past. She will require rate control and then eventual rhythm control with synchronized cardioversion tomorrow. She has been religiously taking her oral anticoagulation therapy. I would also increase on admission her sotalol to 160 mg b.i.d. and watch her carefully with EKGs. We discussed about need for synchronized cardioversion. She understands agrees and has undergone this procedure in the past. This is helped her to maintain her heart failure syndrome man avoid hospitalization in the past. Will also refer her back to EP for consideration of redo ablation. All of this was discussed with her. Plan discussed with ED team as well as Dr. Rosales who is covering for me tomorrow in the hospital. (2) Heart failure with improved ejection fraction (HFimpEF): Code(s): I50.32 - Chronic diastolic (congestive) heart failure Category: Medical Plan: Patient with prior history of nonischemic cardiomyopathy with severe LV systolic dysfunction with atrial fibrillation status post Bi V ICD. She has done very well with heart failure syndrome overall with current neurohormonal modulation and rhythm management. Her LV ejection fraction has improved as a result. Will pursue rhythm control approach as above. Continue Entresto therapy. Continue current diuretic regimen. Monitor for development of heart failure syndrome while she is hospitalized. (3) Biventricular ICD (implantable cardioverter-defibrillator) in place: Code(s): Z95.810 - Presence of automatic (implantable) cardiac defibrillator Category: Medical Plan: Biventricular ICD in place, currently not check completely because of patient's rapid atrial fibrillation. Will resume check in 4 weeks time. Follow remotely. Will follow up in the clinic in 4 weeks time, sooner PRN. Thank you for allowing me to partake in her care Coding Level of Care Code Est Pt Level 4 (65843) Complex EM visit Add On G2211 Diagnoses Atrial fibrillation with rapid ventricular response I48.91 Heart failure with improved ejection fraction (HFimpEF) I50.32 Biventricular ICD (implantable cardioverter-defibrillator) in place Z95.810 CPT Codes Cardiac Device Check - Cardiac Device 6: [id number] Cardiac Device Check, multi lead implantable defibrillator ([id number]) EKG - CPT: 55719-[id number], Complete ([id number])
[2024-12-07 10:51] VITALS: BP 96/60; PULSE 127; BMI 30.6
--- OUTSIDE RECORDS SUMMARY | 2024-12-07 13:10 | XMS_ITS | Clinical Summary ---
Author Organization [address] [place] [address] Address [address] [place] [address] Phone Care Team Providers Care Health Promotion Coordinator Name Role Phone Jeremy Smith Primary Care Provider Allergies Active Allergy Reactions Criticality Noted Date Comments Rivaroxaban 07/12/2024 Medications No known medications Encounters Date Type Department Care Team Description 11/07/2024 2:30 PM EDT Office Visit [facility] [address] [phone] Nick Pozo DPM Foreign body in right [...] Upcoming Encounters Date Type Department Care Team ([facility] st Contact Info) Description 02/06/2025 11:00 AM EST Office Visit [facility] [address] [phone] Nick Pozo DPM [address] [place] [phone] Health Maintenance Due Date Last Done Comments [...] Insurance MEDICARE MEDICAID - [place] Care Teams Health Promotion Coordinator Relationship Specialty Start Date End Date Jeremy mSith PA [address] [place] [phone] PCP - General Physician Shuttle Hand 07/25/24
== END 2024-12-07 11:11 | disposition home or self-care (01) ==
LOC: HO.HCS 10:40
PROVIDERS: PCP Physician Assistant; Visit Provider Internal Medicine Cardiovascular Disease
DX: I48.91 Unspecified atrial fibrillation (principal); I50.32 Chronic diastolic (congestive) heart failure; Z95.810 Presence of automatic (implantable) cardiac defibrillator
CPT/HCPCS: 93010; 93284; 99214; G2211

== ENCOUNTER → 2024-12-07 10:39 | Outpatient (BNVA) | payer MEDICARE, MEDICAID, SELFPAY ==
[2023-05-04 15:23] VITALS: BP 104/68; BP 112/72; BMI 31.3
== END ==
PROVIDERS: PCP Physician Assistant; Visit Provider Internal Medicine Cardiovascular Disease
DX: Z45.02 Encounter for adjustment and management of automatic implantable cardiac defibrillator (principal); I48.91 Unspecified atrial fibrillation; I50.32 Chronic diastolic (congestive) heart failure; Z53.8 Procedure and treatment not carried out for other reasons
CPT/HCPCS: 93005; 93284; 99212

== ENCOUNTER 2024-12-07 11:24 | Inpatient (IN) | payer MEDICARE, MEDICAID, SELFPAY ==
[2023-05-04 15:23] VITALS: BP 104/68; BP 112/72; BMI 31.3
[2024-12-07] VITALS (8 sets, daily range): BP systolic 91–117; BP diastolic 46–65; PULSE 92–127; RESP 16–20; TEMP 36.4–36.6; O2SAT 95–98; BMI 30.7
--- NOTE | ~2024-12-07 | CT_ITS ---
CLINICAL HISTORY: R flank pain, r o obstructing stone CT abdomen and pelvis without contrast Comparison: CT/SR - CT ABDOMEN PELVIS WITHOUT IV CONTRAST - 10/16/24 14:36 EDT US - US RENAL BI - 04/14/24 14:[address]/REG/OR/SR - CT ABDOMEN PELVIS WITHOUT IV CONTRAST RENAL CALCULI - 08/04/23 09:[address]/REG/OR/SR - CT ABDOMEN PELVIS WITHOUT IV CONTRAST - 04/16/22 13:29 EST Findings: No hydronephrosis. Right nephrolithiasis measures up to 8 mm. Left nephrolithiasis measures up to 7 mm. No bladder stone. No consolidation at the lung bases. Subsegmental atelectasis and linear scarring in the lung bases. Trace pleural fluid. Unremarkable gallbladder. Fibroid uterus. The other solid organs are normal. Small hiatal hernia. Small gastric diverticulum. No bowel wall thickening or dilation. A normal appendix is identified. Colonic diverticulosis. No aneurysm. Severe calcified atherosclerotic disease. No lymphadenopathy. No ascites. No acute fracture. Impression: No urinary tract obstruction. This document has been electronically signed by: Orquidea Esqueda MD on 12/10/2024 14:03:01
--- NOTE | ~2024-12-07 | XR_ITS ---
EXAMINATION: XR CHEST CLINICAL INFORMATION: SOB COMPARISON: Previous chest x-ray most recently January 2023 TECHNIQUE: Frontal view of the chest was obtained. FINDINGS: Left subclavian pacemaker AICD with leads projecting over the right atrium, right ventricle and coronary sinus unchanged. The lungs are clear. No consolidation or pulmonary edema. No pleural effusion or pneumothorax. Stable mild enlargement of the cardiac silhouette. Hilar and mediastinal contours are unremarkable. Degenerative changes of the spine. XR/XR chest 1V IMPRESSION: No evidence for acute disease in the chest. Electronically signed by: Rosanna Mathew MD 12/07/2024 01:27 PM EDT
--- NOTE | 2024-12-07 11:28 | ECG_ITS ---
Test Reason : A-FIB Blood Pressure : */* mmHG Vent. Rate : 123 BPM Atrial Rate : 97 BPM P-R Int : * ms QRS Dur : 128 ms QT Int : 398 ms P-R-T Axes : * -53 133 degrees QTcB Int : 569 ms Likely atrial fibrillation with rapid rate Left axis deviation Non-specific intra-ventricular conduction block Minimal voltage criteria for LVH, may be normal variant ( [place] product ) T wave abnormality, consider lateral ischemia Abnormal ECG When compared with ECG of 06-Feb-2023 19:08, Current undetermined rhythm precludes rhythm comparison, needs review Referred By: Ishmael Pederson Electronically Signed By: LIIDA CHACON
[2024-12-07 11:53] LABS: MANUAL DIFF FLAG NO
--- NOTE | 2024-12-07 11:54 | ED_ITS ---
HPI - General Adult General Chief complaint: Arrhythmia/Palpitations Stated complaint: afib Time Seen by Provider: 12/07/24 12:19 Source: patient Mode of arrival: ambulatory Limitations: no limitations History of Present Illness HPI narrative: This is 69 years old female sent by the cardiology office because in the rapid AFib she is anticoagulated with Eliquis. She has a history of heart failure, she has an implantable defibrillator. She has been feeling weak for few days. Onset (ago): day(s) Radiation: non-radiation Severity: moderate Relieving factors: none Exacerbating factors: none Related Data Previous Rx's ?Medication ?Instructions ?Recorded blood pressure test kit-large #1 ea 08/14/21 leg brace (Knee Brace Large-XLarge) #1 ea 07/22/23 pyridoxine (vitamin B6) 100 mg 100 mg PO DAILY 90 days #90 tabs 05/08/24 tablet apixaban 5 mg tablet (Eliquis) 5 mg PO BID #180 tabs 0 08/01/24 furosemide 40 mg tablet 40 mg PO DAILY #90 tabs 07/10 06/02 sacubitril 24 mg-valsartan 26 mg 1 tab PO BID 90 days #180 tabs 08/01/24 tablet (Entresto) sotalol 80 mg tablet 120 mg (1.5 x 80 mg) PO BID 90 08/01/24 days #270 tabs ciclopirox 0.77 % topical cream 1 appl topical BID 4 w eeks #30 11/28/24 grams montelukast 10 mg tablet 10 mg PO BEDTIME 90 days #90 tabs 11/28/24 tramadol 50 mg tablet 50 mg PO BID PRN pain 7 days #14 11/28/24 tabs tamsulosin 0.4 mg capsule (Flomax) 0.4 mg PO DAILY #30 caps 11/29/24 Allergies Allergy/AdvReac Type Severity Reaction Status Date / Time rivaroxaban (From XARELTO) AdvReac Intermediate LEG EDEMA, Verified 12/07/24 11:53 RASH Review of Systems 2 Constitutional: Constitutional: Reports no additional constitutional complaints ENT: Reports system reviewed and no additional complaints, except as documented Neurologic: Reports system reviewed and no additional complaints, except as documented PMFSH Past Medical History Attestation statement: The following information was validated with the patient. Medical History Heart failure with reduced ejection fraction Chronic radicular pain of lower back Chest pain Encounter for monitoring sotalol therapy Hypotension arterial Osteoporosis screening Transaminitis Biventricular ICD (implantable cardioverter-defibrillator) in place Nonischemic cardiomyopathy SVT (supraventricular tachycardia) PAF (paroxysmal atrial fibrillation) HLD (hyperlipidemia) HTN (hypertension) History of cardioversion Obesity (BMI 30-39.9) Graves' disease in remission Surgical History History of radiofrequency ablation procedure for cardiac arrhythmia History of cardiac defibrillator placement Hx of cardiac catheterization (~06/2017) Hx of tubal ligation Family History Family History Father Stroke Hypertension Mother Hypertension Diabetes Daughter AVM (arteriovenous malformation) Son No problems noted. Sister No problems noted. Brother No problems noted. Brother No problems noted. Brother No problems noted. Brother No problems noted. Family/Other Pancreatic cancer Social History Social History Household Members: Significant Other Housing: House Do you presently have visiting nurse or other home services: Yes Alcohol intake: never Comment: moderate risk Patient Tobacco Use Status: Never used Tobacco e-Cigarette/Vaping Use: Never Used Second Hand Smoke Exposure: No service: No Current occupational status: unemployed Cognitive needs: No Hearing needs: No Vision needs: Yes Physical Exam ED Exam Exam: No acute distress Vital Signs: Vital Signs - 24 hr 12/07/24 11:50 12/07/24 12:03 12/07/24 12:50 Temperature 97.5 F Pulse Rate 113 H 125 H 113 H Respiratory Rate 18 19 16 Blood Pressure 103/54 L 99/50 L 91/50 L Pulse Oximetry 98 95 96 Oxygen Delivery Method Room Air Room Air Room Air 12/07/24 13:30 Temperature Pulse Rate 127 H Respiratory Rate 16 Blood Pressure 93/58 L Pulse Oximetry 95 Oxygen Delivery Method Room Air BMI result Body Mass Index 30.7 Const General: cooperative Nutritional Appearance: well nourished Orientation/consciousness: patient oriented x3 HENMT Head: Yes normal to inspection Ears: hearing grossly normal bilaterally Face and sinus: Yes normal facial exam Throat: Yes posterior oropharynx normal Neck Neck: Yes normal visual inspection Chest Chest palpation & inspection: normal inspection of the chest Resp Effort & Inspection: normal respiratory effort Auscultation: clear to auscultation bilaterally Cardio Rate: tachycardic Rhythm: abnormal rhythm GI Inspection: Yes normal to inspection Auscultation: normal bowel sounds Skin General skin exam: no rashes or lesions noted, elasticity normal and turgor normal Lesions: no lesions Rashes: no rashes Wounds: no wounds Nails: normal Neuro General: patient oriented x3 Cranial nerves: Yes CN's II-XII intact bilaterally Cognition (Neuro): normal cognition Gait exam (Neuro): Normal gait present Course Course Course Narrative: RMMatias; 6-year-old female history of AFib with a IVCD sent by Dr. Bruno for AFib RVR wants her admitted for rate control and to have cardioversion tomorrow. Patient is already on Eliquis. Patient presents to the ED for couple of days of dizziness and lightheadedness. Labs EKG ordered. Patient be brought back to the ED. Medications Administered Generic Name Dose Route Start Last Admin Trade Name Freq PRN Reason Stop Dose Admin Acetaminophen 650 mg 12/07/24 14:14 12/09/24 14:44 Acetaminophen 325 Mg Tablet PO 650 mg Q6H PRN Administration Pain, Mild 1-3,fever,headache Apixaban 5 mg 12/07/24 21:00 12/09/24 20:11 Apixaban 5 Mg Tablet PO 5 mg BID ANTHONY Administration Clotrimazole 1 appl 12/07/24 21:00 12/09/24 20:11 Clotrimazole 1 % Cream 15 Gm Tube TOPICAL 1 appl BID ANTHONY Administration Furosemide 40 mg 12/09/24 09:00 12/09/24 09:32 Furosemide 40 Mg Tablet PO 40 mg DAILY ANTHONY Administration Protocol Montelukast Sodium 10 mg 12/07/24 21:00 12/09/24 20:10 Montelukast Sodium 10 Mg Tablet PO 10 mg BEDTIME ANTHONY Administration Pyridoxine HCl 100 mg 12/08/24 09:00 12/09/24 09:32 Pyridoxine Hcl (Vitamin B6) 50 Mg Tablet PO 100 mg DAILY ANTHONY Administration Sacubitril/Valsartan 1 tab 12/09/24 09:00 12/09/24 20:10 Sacubitril/Valsartan 1 Tab Tablet PO 1 tab BID ANTHONY Administration Protocol Sodium Chloride 3 ml 12/07/24 16:00 12/09/24 20:11 0.9 % Sodium Chloride Flush 3 Ml Syringe IVFLUSH 3 ml QSHIFT ANTHONY Administration Sotalol HCl 160 mg 12/07/24 21:00 12/09/24 20:10 Sotalol Hcl 80 Mg Tablet PO 160 mg BID ANTHONY Administration Discontinued Medications Generic Name Dose Route Start Last Admin Trade Name Matias PRN Reason Stop Dose Admin Digoxin 0.25 mg 12/07/24 12:41 12/07/24 12:48 Digoxin 0.5 Mg/2 Ml Ampul IVPUSH 12/07/24 12:42 0.25 mg ONCE ONE Administration Protocol Digoxin 0.25 mg 12/07/24 13:27 12/07/24 13:39 Digoxin 0.5 Mg/2 Ml Ampul IVPUSH 12/07/24 13:28 0.25 mg ONCE ONE Administration Protocol Medical Decision Making Medical Decision Making [facility] Narrative: Patient was sent by the cardiology nausea this because of atrial fibrillation she has a history of paroxysmal AFib Differential Diagnosis Differential Diagnoses: The differential diagnosis associated with the presentation includes AFib Admission/Observation Consideration of admission/observation: Escalation of care including admission/observation considered Consult Healthcare Provider Management of the patient was discussed with: Wholesale Buyer Order Tracer Lab Data [facility] Lab Attestation statement: I reviewed the patient's lab results. 12/07/24 11:45 12/08/24 05:08 Labs: Lab Results 12/07/24 12/07/24 Range/Units 11:44 11:45 WBC 6.8 (4.8-10.8) X10*3/uL RBC 4.35 (4.20-5.50) X10*6/uL Hgb 12.6 (12.0-16.0) g/dl Hct 38.1 (37.0-47.0) % MCV 87.6 (80.0-98.0) fL MCH 29.0 (27.0-33.0) pg MCHC 33.1 (31.0-35.0) g/dl RDW 13.5 (11.0-16.0) % Plt Count 252 (160-400) X10*3/uL MPV 10.2 (9.4-12.3) fL Immature Gran % (Auto) 0.3 (0.0-0.4) % Neut % (Auto) 59.7 (45-73) % Lymph % (Auto) 29.1 (20-40) % [place] % (Auto) 9.0 (2-11) % Eos % (Auto) 1.3 (0-4) % Baso % (Auto) 0.6 (0-2) % Lymph # (Auto) 2.0 (1.2-4.9) X10*3/uL [place] # (Auto) 0.6 (0.1-1.2) X10*3/uL Eos # (Auto) 0.1 (0.0-0.4) X10*3/uL Baso # (Auto) 0.0 (0.0-0.2) X10*3/uL Abs Immat Gran (auto) 0.02 (0.00-0.03) X10*3/uL Absolute Neuts (auto) 4.1 (2.0-8.3) x10*3/uL Absolute Nucleated RBC 0.000 (0.0-0.012) X10*3/uL Nucleated RBC % (auto) 0.0 (0.0-0.2) /100WBC PT 15.5 H (10.9-12.4) SEC INR 1.4 H (0.9-1.1) APTT 39.8 H (26.7-34.1) SEC Sodium 143 (135-145) mmol/L Potassium 4.1 (3.3-5.1) mmol/L Chloride 105 (96-108) mmol/L Carbon Dioxide 32 H (22-29) mmol/L Anion Gap 10 L (12-20) BUN 22 H (9-16) mg/dL Creatinine 0.82 (0.5-1.4) mg/dL Estim Creat Clear Calc 78.0 Estimated GFR > 60 Random Glucose 137 H (60-115) mg/dL Calcium 9.0 (8.4-10.2) mg/dL Total Bilirubin 0.8 (0.0-1.0) mg/dL AST 20 (5-31) U/L ALT 28 (0-31) U/L Alkaline Phosphatase 118 H (39-117) U/L Troponin I High Sens 6.5 (<3.5-17.0) ng/L NT-Pro-B Natriuret Pep 1461.7 H (<300) pg/mL Total Protein 6.9 (6.5-8.0) g/dL Albumin 4.3 (3.5-5.0) g/dL TSH 1.15 (0.32-4.0) uIU/mL Independent Interpretation I performed an independent interpretation of an: EKG Interpretation: A rapid atrial fibrillation 123 External Record Review External record reviewed: Inpatient record and Office record Chronic Conditions Patient?s care impacted by: Other (Congestive heart failure) Critical Care Time Critical Care Time Critical Care Time: Yes Total Critical Care Time: 60 Attestation: Rapid atrial fibrillation requiring IV digoxin, IV fluids, discussion with cardiology and hospitalist Discharge Plan Discharge Clinical Impression: Atrial fibrillation with RVR Patient Disposition: Still a Patient Interventions: Admission Worksheet (ED) Last Done: 12/07/24 16:09 Discharge Date/Time: 12/08/24 17:03
[2024-12-07 12:01] LABS: Hematocrit 38.1 % (37.0-47.0); Hemoglobin 12.6 g/dl (12.0-16.0); Red Blood Count 4.35 X10*6/uL (4.20-5.50); White Blood Count 6.8 X10*3/uL (4.8-10.8)
[2024-12-07 12:02] LABS: Imm Gran Abs Auto 0.02 X10*3/uL (0.00-0.03); Imm Gran Pct Auto 0.3 % (0.0-0.4); Lymphocytes Absolute Auto 2.0 X10*3/uL (1.2-4.9); Mean Corpuscular HGB Conc 33.1 g/dl (31.0-35.0); Mean Corpuscular Hemoglobin 29.0 pg (27.0-33.0); Mean Corpuscular Volume 87.6 fL (80.0-98.0); NRBC Abs Auto 0.000 X10*3/uL (0.0-0.012); NRBC Pct Auto 0.0 /100WBC (0.0-0.2); Platelet Count 252 X10*3/uL (160-400)
[2024-12-07 12:03] LABS: INTERNATIONAL NORM RATIO 1.4 (0.9-1.1); Prothrombin Time 15.5 SEC (10.9-12.4)
[2024-12-07 12:05] LABS: Partial Thromboplastin Time 39.8 SEC (26.7-34.1)
[2024-12-07 12:18] LABS: Alanine Aminotransferase 28 U/L (0-31); Albumin Level 4.3 g/dL (3.5-5.0); Alkaline Phosphatase 118 U/L (39-117); Anion Gap 10 (12-20); Aspartate Amino Transferase 20 U/L (5-31); Blood Urea Nitrogen 22 mg/dL (9-16); Calcium 9.0 mg/dL (8.4-10.2); Carbon Dioxide 32 mmol/L (22-29); Chloride 105 mmol/L (96-108); Creatinine Clr Calc Pharmacy 78.0; Estimated Glomerular Filt Rate > 60; Potassium 4.1 mmol/L (3.3-5.1); Sodium 143 mmol/L (135-145); Total Protein 6.9 g/dL (6.5-8.0)
[2024-12-07 12:21] LABS: NT Pro B Type Natriuretic Pept 1461.7 pg/mL (<300); Troponin-I High Sensitivity 6.5 ng/L (<3.5-17.0)
--- NOTE | 2024-12-07 12:45 | ED.ARRPALP ---
HPI - Arrhythmia/Palpitations General Chief Complaint: Arrhythmia/Palpitations Stated Complaint: afib Time Seen by Provider: 12/07/24 12:19 Related Data Home Medications ?Medication ?Instructions ?Recorded ?Confirmed acetaminophen 500 mg tablet 1,000 mg PO Q6H PRN Pain (Scale 11/09/19 12/07/24 (Tylenol Extra Strength) Score 1-3) artifi.tears(hypromellose)(PF) 0.3 1 drp ophthalmic (eye) Q4-6H PRN 03/27/20 12/07/24 % eye drops Dry Eyes Previous Rx's ?Medication ?Instructions ?Recorded blood pressure test kit-large #1 ea 08/14/21 leg brace (Knee Brace Large-XLarge) #1 ea 07/22/23 pyridoxine (vitamin B6) 100 mg 100 mg PO DAILY 90 days #90 tabs 05/08/24 tablet sennosides 8.6 mg tablet (Senna 17.2 mg (2 x 8.6 mg) PO BEDTIME 30 05/25/24 Lax) days #60 tabs apixaban 5 mg tablet (Eliquis) 5 mg PO BID #180 tabs 08/01/24 furosemide 40 mg tablet 40 mg PO DAILY #90 tabs 08/01/24 sacubitril 24 mg-valsartan 26 mg 1 tab PO BID 90 days #180 tabs 08/01/24 tablet (Entresto) sotalol 80 mg tablet 120 mg (1.5 x 80 mg) PO BID 90 08/01/24 days #270 tabs ciclopirox 0.77 % topical cream 1 appl topical BID 4 weeks #30 11/28/24 grams montelukast 10 mg tablet 10 mg PO BEDTIME 90 days #90 tabs 11/28/24 tramadol 50 mg tablet 50 mg PO BID PRN pain 7 days #14 11/28/24 tabs tamsulosin 0.4 mg capsule (Flomax) 0.4 mg PO DAILY #30 caps 11/29/24 Allergies Allergy/AdvReac Type Severity Reaction Status Date / Time rivaroxaban (From XARELTO) AdvReac Intermediate LEG EDEMA, Verified 12/07/24 11:53 RASH PMFSH Past Medical History Medical History Heart failure with reduced ejection fraction Chronic radicular pain of lower back Chest pain Encounter for monitoring sotalol therapy Hypotension arterial Osteoporosis screening Transaminitis Biventricular ICD (implantable cardioverter-defibrillator) in place Nonischemic cardiomyopathy SVT (supraventricular tachycardia) PAF (paroxysmal atrial fibrillation) HLD (hyperlipidemia) HTN (hypertension) History of cardioversion Obesity (BMI 30-39.9) Graves' disease in remission Surgical History History of radiofrequency ablation procedure for cardiac arrhythmia History of cardiac defibrillator placement Hx of cardiac catheterization (~06/2017) Hx of tubal ligation Family History Family History Father Stroke Hypertension Mother Hypertension Diabetes Daughter AVM (arteriovenous malformation) Son No problems noted. Sister No problems noted. Brother No problems noted. Brother No problems noted. Brother No problems noted. Brother No problems noted. Family/Other Pancreatic cancer Social History Social History Household Members: Significant Other Housing: House Do you presently have visiting nurse or other home services: No Alcohol intake: never Comment: moderate risk Patient Tobacco Use Status: Never used Tobacco Smoked in Last 30 Days: No e-Cigarette/Vaping Use: Never Used Second Hand Smoke Exposure: No Use of substances other than those prescribed or required for medical reasons: No Advance Directives: No Advance Directives Information Provided: Yes service: No Current occupational status: unemployed Cognitive needs: No Hearing needs: No Vision needs: Yes Physical Exam Vital Signs: Vital Signs: Last Vital Signs Temp 97.5 F 12/07/24 11:50 Pulse 127 H 12/07/24 13:30 Resp 16 12/07/24 13:30 BP 93/58 L 12/07/24 13:30 Pulse Ox 95 12/07/24 13:30 O2 Del Method Room Air 12/07/24 13:30 BMI result Body Mass Index 30.7 Medications Administered Discontinued Medications Generic Name Dose Route Start Last Admin Trade Name Freq PRN Reason Stop Dose Admin Digoxin 0.25 mg 12/07/24 12:41 12/07/24 12:48 Digoxin 0.5 Mg/2 Ml Ampul IVPUSH 12/07/24 12:42 0.25 mg ONCE ONE Administration Protocol Digoxin 0.25 mg 12/07/24 13:27 12/07/24 13:39 Digoxin 0.5 Mg/2 Ml Ampul IVPUSH 12/07/24 13:28 0.25 mg ONCE ONE Administration Protocol Medical Decision Making Lab Data 12/07/24 11:45 12/07/24 11:44 Labs: Lab Results 12/07/24 12/07/24 Range/Units 11:44 11:45 WBC 6.8 (4.8-10.8) X10*3/uL RBC 4.35 (4.20-5.50) X10*6/uL Hgb 12.6 (12.0-16.0) g/dl Hct 38.1 (37.0-47.0) % MCV 87.6 (80.0-98.0) fL MCH 29.0 (27.0-33.0) pg MCHC 33.1 (31.0-35.0) g/dl RDW 13.5 (11.0-16.0) % Plt Count 252 (160-400) X10*3/uL MPV 10.2 (9.4-12.3) fL Immature Gran % (Auto) 0.3 (0.0-0.4) % Neut % (Auto) 59.7 (45-73) % Lymph % (Auto) 29.1 (20-40) % [place] % (Auto) 9.0 (2-11) % Eos % (Auto) 1.3 (0-4) % Baso % (Auto) 0.6 (0-2) % Lymph # (Auto) 2.0 (1.2-4.9) X10*3/uL [place] # (Auto) 0.6 (0.1-1.2) X10*3/uL Eos # (Auto) 0.1 (0.0-0.4) X10*3/uL Baso # (Auto) 0.0 (0.0-0.2) X10*3/uL Abs Immat Gran (auto) 0.02 (0.00-0.03) X10*3/uL Absolute Neuts (auto) 4.1 (2.0-8.3) x10*3/uL Absolute Nucleated RBC 0.000 (0.0-0.012) X10*3/uL Nucleated RBC % (auto) 0.0 (0.0-0.2) /100WBC PT 15.5 H (10.9-12.4) SEC INR 1.4 H (0.9-1.1) APTT 39.8 H (26.7-34.1) SEC Sodium 143 (135-145) mmol/L Potassium 4.1 (3.3-5.1) mmol/L Chloride 105 (96-108) mmol/L Carbon Dioxide 32 H (22-29) mmol/L Anion Gap 10 L (12-20) BUN 22 H (9-16) mg/dL Creatinine 0.82 (0.5-1.4) mg/dL Estim Creat Clear Calc 78.0 Estimated GFR > 60 Random Glucose 137 H (60-115) mg/dL Calcium 9.0 (8.4-10.2) mg/dL Total Bilirubin 0.8 (0.0-1.0) mg/dL AST 20 (5-31) U/L ALT 28 (0-31) U/L Alkaline Phosphatase 118 H (39-117) U/L Troponin I High Sens 6.5 (<3.5-17.0) ng/L NT-Pro-B Natriuret Pep 1461.7 H (<300) pg/mL Total Protein 6.9 (6.5-8.0) g/dL Albumin 4.3 (3.5-5.0) g/dL TSH 1.15 (0.32-4.0) uIU/mL Critical Care Time Critical Care Time Critical Care Time: Yes Total Critical Care Time: 60 Attestation: taking care of the pt 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
--- NOTE | 2024-12-07 14:22 | PHA.MEDREC ---
Addendum entered by Leesa Sykes RPh 12/07/24 14:25: reviewed by [facility] Original Note: Pharmacy Consult ? Medication Reconciliation Pharmacy has completed the medication reconciliation. Spoke with pt and she confirmed her medications.
--- NOTE | 2024-12-07 14:23 | P.HPHOSP_ITS ---
History of Present Illness Date of Service: 12/07/24 Attending physician on admission: Buck Mckeon Chief Complaint: palpitations This is a 69-year-old female with a history of HFrEF, paf on Eliquis, SVT, biventricular ICD who was sent from the cardiology office due to atrial fibrillation with rapid ventricular response. Patient reports since Wednesday she has not been feeling well. She reports intermittent, intermittent dizziness, chest discomfort and low blood pressure. In the emergency department her heart rate was uncontrolled, she received 2 doses of IV digoxin. Her blood pressure has remained around 90 systolic. She will be admitted to the hospital for further management of AFib RVR with plan for cardioversion in the a.m.. She reports being compliant with all her medications. Review of Systems 2 Review of Systems: Yes all other systems are reviewed and are negative Constitutional: Constitutional: Denies chills and Denies fever(s) Cardiovascular: Cardiovascular: Denies chest pain, Reports palpitations and Denies dyspnea Respiratory: Respiratory: Denies cough and Denies dyspnea Endocrine: Endocrine: Reports palpitations [facility] Medical History Heart failure with reduced ejection fraction Chronic radicular pain of lower back Chest pain Encounter for monitoring sotalol therapy Hypotension arterial Osteoporosis screening Transaminitis Biventricular ICD (implantable cardioverter-defibrillator) in place Nonischemic cardiomyopathy SVT (supraventricular tachycardia) PAF (paroxysmal atrial fibrillation) HLD (hyperlipidemia) HTN (hypertension) History of cardioversion Obesity (BMI 30-39.9) Graves' disease in remission Family History Father Stroke Hypertension Mother Hypertension Diabetes Daughter AVM (arteriovenous malformation) Son No problems noted. Sister No problems noted. Brother No problems noted. Brother No problems noted. Brother No problems noted. Brother No problems noted. Family/Other Pancreatic cancer Surgical History History of radiofrequency ablation procedure for cardiac arrhythmia History of cardiac defibrillator placement Hx of cardiac catheterization (~06/2017) Hx of tubal ligation Social History Household Members: Significant Other Housing: House Do you presently have visiting nurse or other home services: No Alcohol intake: never Comment: moderate risk Patient Tobacco Use Status: Never used Tobacco Smoked in Last 30 Days: No e-Cigarette/Vaping Use: Never Used Second Hand Smoke Exposure: No Use of substances other than those prescribed or required for medical reasons: No Advance Directives: No Advance Directives Information Provided: Yes service: No Current occupational status: unemployed Cognitive needs: No Hearing needs: No Vision needs: Yes Meds Allergies Allergy/AdvReac Type Severity Reaction Status Date / Time rivaroxaban (From XARELTO) AdvReac Intermediate LEG EDEMA, Verified 12/07/24 11:53 RASH Active Medications: Current Medications Acetaminophen (Acetaminophen 325 Mg Tablet) 650 mg PO Q6H PRN PRN Reason: Pain, Mild 1-3,fever,headache Calcium Carbonate (Calcium Carbonate 750 Mg Tab.Chew) 750 mg PO Q4H PRN PRN Reason: Heartburn Magnesium Hydroxide (Milk Of Magnesia 30 Ml Oral.Susp) 30 ml PO DAILY PRN PRN Reason: Constipation Melatonin (Melatonin 3 Mg Tablet) 6 mg PO BEDTIME PRN PRN Reason: Insomnia Sodium Chloride (0.9 % Sodium Chloride Flush 3 Ml Syringe) 3 ml [facility]USH [facility] Physical Exam 2 Vital Signs and Narrative: Vital Signs: Last Vital Signs Temp 97.5 F 12/07/24 11:50 Pulse 127 H 12/07/24 13:30 Resp 16 12/07/24 13:30 BP 93/58 L 12/07/24 13:30 Pulse Ox 95 12/07/24 13:30 O2 Del Method Room Air 12/07/24 13:30 BMI result Body Mass Index 30.7 Const: General: cooperative, comfortable, alert and awake Nutritional Appearance: obese Orientation/consciousness: patient oriented x3 Resp: Effort & Inspection: normal respiratory effort, able to speak in complete sentences, no respiratory distress and no use of accessory muscles A uscultation: clear to auscultation bilaterally Cardio: Rate: tachycardic Rhythm: abnormal rhythm irregularly irregular GI: Inspection: No distended Palpation (GI): Soft to palpation Neuro: General: patient oriented x3, moves all extremities and CN's II-XI intact bilaterally Extrem: General: No pedal edema Results Labs 12/07/24 11:45 12/07/24 11:44 Labs: Laboratory Results - last 24 hr 12/07/24 12/07/24 11:44 11:45 MCV 87.6 MCH 29.0 MCHC 33.1 RDW 13.5 Plt Count 252 MPV 10.2 Immature Gran % (Auto) 0.3 Neut % (Auto) 59.7 Lymph % (Auto) 29.1 [place] % (Auto) 9.0 Eos % (Auto) 1.3 Baso % (Auto) 0.6 Lymph # (Auto) 2.0 [place] # (Auto) 0.6 Eos # (Auto) 0.1 Baso # (Auto) 0.0 Abs Immat Gran (auto) 0.02 Absolute Neuts (auto) 4.1 Absolute Nucleated RBC 0.000 Nucleated RBC % (auto) 0.0 PT 15.5 H INR 1.4 H APTT 39.8 H Anion Gap 10 L Estim Creat Clear Calc 78.0 Estimated GFR > 60 Random Glucose 137 H Calcium 9.0 Total Bilirubin 0.8 AST 20 ALT 28 Alkaline Phosphatase 118 H Troponin I High Sens 6.5 NT-Pro-B Natriuret Pep 1461.7 H Total Protein 6.9 Albumin 4.3 TSH 1.15 Imaging Radiologist's Impressions: Impressions Chest X-Ray 12/07/24 13:14 IMPRESSION: No evidence for acute disease in the chest. Electronically signed by: Rosanna Mathew MD 12/07/2024 01:27 PM EDT RP Assessment and Plan (1) Atrial fibrillation with RVR: Status: Acute Plan This is a 69-year-old female with a history of paf on Eliquis s/p CV and ablation x2 , HFrEF, AICD who was sent from the cardiology office for afib with RVR Atrial fibrillation with rapid ventricular response received IV digoxin in ED plan for admission for CV in am, NPO at midnight Increase evening dose of sotalol to 160 due to soft bp will hold entresto, hold lasix bedrest HR to 120s is acceptable as per cardiology HFrEF not in overt HF at this time hold lasix, Entresto for soft bp Chronic pain Continue tramadol p.r.n. DVT prophylaxis-Eliquis Code status-full code Patient likely to require 2 midnight stay in the hospital for management atrial fibrillation with rapid ventricular response requiring specialist evaluation and planned procedure with low blood pressure and high risk for decompensation Quality Stroke Does the patient have a stroke diagnosis?: No VTE Prior VTE?: No VTE Risk Level:: Medical - moderate - high VTE Device Contraindication: N/A - Device Ordered VTE Drug Contraindication: N/A - Med Ordered
--- NOTE | 2024-12-07 16:14 | HO.NURTONUR ---
Pt arrived from [facility] c/o worsening fatigue, dizziness, and palpitations since wednesday. Found in rapid afib RVR. Hx PAF (eliquis s/p CV and ablation x2) , HFrEF, AICD. Received two doses IV digoxin, plan to admit for CV in am (NPO @ midnight). Per MD, increase evening dose of sotalol to 160, due to soft bp will hold entresto, hold lasix. Pt on bedrest, 120s HR acceptable per cardiology.
[2024-12-07] MEDS: 0.9 % Sodium Chloride Flush 3 ML SYRINGE IVFLUSH (18:17)
[2024-12-07] MEDS: Clotrimazole 1 % Cream 15 GM TUBE 1 APPL TOPICAL (21:32)
--- NOTE | 2024-12-07 21:36 | PC.NURSE ---
Assumed care of pt at 1900. Pt A&ox3. Breathing unlabored. Skin pwd. Pt on tele. Reports 08/17 headache, requested tylenol and medicated as charted. Pt denies chest pain at this time. Assisted to the bedside commode. VSS. Call rodrigues within reach.
[2024-12-08] VITALS (18 sets, daily range): BP systolic 107–143; BP diastolic 47–82; PULSE 69–98; RESP 14–20; TEMP 36.1–37.3; O2SAT 94–99
[2024-12-08] MEDS: 0.9 % Sodium Chloride Flush 3 ML SYRINGE IVFLUSH ×4 (00:02→21:30)
--- NOTE | 2024-12-08 05:08 | HO.NURTONUR ---
Pt ambulatory independently. Has 20g in RAC. Has been NPO since midnight. VSS.
[2024-12-08 05:43] LABS: Anion Gap 11 (12-20); Blood Urea Nitrogen 17 mg/dL (9-16); Calcium 8.6 mg/dL (8.4-10.2); Carbon Dioxide 26 mmol/L (22-29); Chloride 108 mmol/L (96-108); Creatinine Clr Calc Pharmacy 100.0; Estimated Glomerular Filt Rate > 60; Potassium 3.3 mmol/L (3.3-5.1); Sodium 142 mmol/L (135-145)
--- NOTE | 2024-12-08 07:52 | HO.ANESPROP2 ---
Documented by User: Melania Zhou NP 12/08/24 09:28 HPI - Anesthesia Eval Consult details Narrative: 69 yr old female for cardioversion Has ICD in place On eliquis s/p cardioversions, ablations PMFSH Active Problems Active Problems: All Active Problems Atrial fibrillation with RVR (Acute) Generalized pruritus of unknown etiology (Acute) Left lower quadrant abdominal pain (Acute) Nephrolithiasis (Acute) Foreign body in foot, right (Acute) Lower back pain (Acute) Constipation (Acute) Heart failure with improved ejection fraction (HFimpEF) (Acute) Grief reaction (Acute) Tinea pedis (Acute) Foot callus (Acute) Impaired glucose metabolism (Acute) Dermatitis (Acute) Left knee pain (Acute) Tinea pedis of right foot (Acute) Flank pain (Acute) Chronic radicular pain of lower back (Acute) Chest pain (Acute) Osteoarthritis of glenohumeral joints, bilateral (Acute) Elevated LFTs (Acute) Scalp cyst (Acute) Bilateral renal stones (Acute) Nonischemic cardiomyopathy (Acute) Obese (Acute) COVID-19 (Acute) Allergic rhinitis (Acute) Biventricular ICD (implantable cardioverter-defibrillator) in place (Acute) PAF (paroxysmal atrial fibrillation) (Acute) Menopause (Acute) Sacroiliac joint pain (Acute) Spondylosis of lumbar spine (Acute) Osteoporosis screening (Acute) Encounter for annual wellness exam in Medicare patient (Acute) Mild depression (Acute) Colon cancer screening (Acute) Borderline high cholesterol (Acute) Insomnia (Acute) GARETH (generalized anxiety disorder) (Acute) Fibromyalgia (Acute) Rotator cuff impingement syndrome of left shoulder (Acute) SVT (supraventricular tachycardia) (Acute) HLD (hyperlipidemia) (Acute) HTN (hypertension) (Acute) Graves' disease in remission (Acute) Obesity (BMI 30-39.9) (Acute) Past Medical History Medical History Heart failure with reduced ejection fraction Chronic radicular pain of lower back Chest pain Encounter for monitoring sotalol therapy Hypotension arterial Osteoporosis screening Transaminitis Biventricular ICD (implantable cardioverter-defibrillator) in place Nonischemic cardiomyopathy SVT (supraventricular tachycardia) PAF (paroxysmal atrial fibrillation) HLD (hyperlipidemia) HTN (hypertension) History of cardioversion Obesity (BMI 30-39.9) Graves' disease in remission Family History Family History Father Stroke Hypertension Mother Hypertension Diabetes Daughter AVM (arteriovenous malformation) Son No problems noted. Sister No problems noted. Brother No problems noted. Brother No problems noted. Brother No problems noted. Brother No problems noted. Family/Other Pancreatic cancer Surgical History Surgical History History of radiofrequency ablation procedure for cardiac arrhythmia History of cardiac defibrillator placement Hx of cardiac catheterization (~06/2017) Hx of tubal ligation Social History Social History Household Members: Significant Other Housing: House Do you presently have visiting nurse or other home services: No Alcohol intake: never Comment: moderate risk Patient Tobacco Use Status: Never used Tobacco e-Cigarette/Vaping Use: Never Used Second Hand Smoke Exposure: No service: No Current occupational status: unemployed Cognitive needs: No Hearing needs: No Vision needs: Yes Meds Allergies Allergy/AdvReac Type Severity Reaction Status Date / Time rivaroxaban (From XARELTO) AdvReac Intermediate LEG EDEMA, Verified 12/07/24 11:53 RASH Active Medications: Current Medications Acetaminophen (Acetaminophen 325 Mg Tablet) 650 mg PO Q6H PRN PRN Reason: Pain, Mild 1-3,fever,headache Last Admin: 12/07/24 21:29 Dose: 650 mg Apixaban (Apixaban 5 Mg Tablet) 5 mg PO BID ANTHONY Last Admin: 12/07/24 21:28 Dose: 5 mg Calcium Carbonate (Calcium Carbonate 750 Mg Tab.Chew) 750 mg PO Q4H PRN PRN Reason: Heartburn Clotrimazole (Clotrimazole 1 % Cream 15 Gm Tube) 1 appl TOPICAL BID ANTHONY Last Admin: 12/07/24 21:32 Dose: 1 appl Magnesium Hydroxide (Milk Of Magnesia 30 Ml Oral.Susp) 30 ml PO DAILY PRN PRN Reason: Constipation Melatonin (Melatonin 3 Mg Tablet) 6 mg PO BEDTIME PRN PRN Reason: Insomnia Montelukast Sodium (Montelukast Sodium 10 Mg Tablet) 10 mg PO BEDTIME ANTHONY Last Admin: 12/07/24 21:28 Dose: 10 mg Pyridoxine HCl (Pyridoxine Hcl (Vitamin B6) 50 Mg Tablet) 100 mg PO DAILY [facility] Sodium Chloride (0.9 % Sodium Chloride Flush 3 Ml Syringe) 3 ml IVFLUSH QSHIFT [facility] Last Admin: 12/08/24 00:02 Dose: 3 ml Sotalol HCl (Sotalol Hcl 80 Mg Tablet) 160 mg PO BID [facility] Last Admin: 12/07/24 21:31 Dose: 160 mg Tramadol HCl (Tramadol Hcl 50 Mg Tablet) 50 mg PO BID PRN PRN Reason: Pain, Severe (Pain Scale 7-10) Exam Height,Weight and Vital Signs: Height 5 ft 9 in Weight 94.347 kg Last Vital Signs Temp 97.7 F 12/08/24 06:14 Pulse 72 12/08/24 06:14 Resp 14 12/08/24 06:14 BP 123/72 12/08/24 06:14 Pulse Ox 96 12/08/24 06:14 O2 Del Method Room Air 12/08/24 06:14 Pertinent Lab Results Pertinent Lab Results: Laboratory Tests 12/07/24 12/07/24 12/08/24 11:44 11:45 05:08 WBC 6.8 RBC 4.35 Hgb 12.6 Hct 38.1 MCV 87.6 MCH 29.0 MCHC 33.1 RDW 13.5 Plt Count 252 MPV 10.2 Immature Gran % (Auto) 0.3 Neut % (Auto) 59.7 Lymph % (Auto) 29.1 Thomas % (Auto) 9.0 Eos % (Auto) 1.3 Baso % (Auto) 0.6 Lymph # (Auto) 2.0 Thomas # (Auto) 0.6 Eos # (Auto) 0.1 Baso # (Auto) 0.0 Abs Immat Gran (auto) 0.02 Absolute Neuts (auto) 4.1 Absolute Nucleated RBC 0.000 Nucleated RBC % (auto) 0.0 PT 15.5 H INR 1.4 H APTT 39.8 H Sodium 143 142 Potassium 4.1 3.3 Chloride 105 108 Carbon Dioxide 32 H 26 Anion Gap 10 L 11 L BUN 22 H 17 H Creatinine 0.82 0.64 Estim Creat Clear Calc 78.0 100.0 Estimated GFR > 60 > 60 Random Glucose 137 H 98 Calcium 9.0 8.6 Total Bilirubin 0.8 AST 20 ALT 28 Alkaline Phosphatase 118 H Troponin I High Sens 6.5 NT-Pro-B Natriuret Pep 1461.7 H Total Protein 6.9 Albumin 4.3 TSH 1.15 Narrative Narrative: ECHO 12/2023 Conclusions: - 1. Moderately dilated left ventricle with low normal LV ejection fraction of 50-55% with grade 2 diastolic dysfunction 2. Moderately dilated left atrium 3. Mild mitral regurgitation 4. Normal RV systolic pressure 5. Mildly dilated ascending aorta at 3.7 cm 6. No gross pericardial effusion Documented by User: Nimo Kidd MD 12/08/24 10:02 [facility] Past Medical History Medical History Heart failure with reduced ejection fraction Chronic radicular pain of lower back Chest pain Encounter for monitoring sotalol therapy Hypotension arterial Osteoporosis screening Transaminitis Biventricular ICD (implantable cardioverter-defibrillator) in place Nonischemic cardiomyopathy SVT (supraventricular tachycardia) PAF (paroxysmal atrial fibrillation) HLD (hyperlipidemia) HTN (hypertension) History of cardioversion Obesity (BMI 30-39.9) Graves' disease in remission Family History Family History Father Stroke Hypertension Mother Hypertension Diabetes Daughter AVM (arteriovenous malformation) Son No problems noted. Sister No problems noted. Brother No problems noted. Brother No problems noted. Brother No problems noted. Brother No problems noted. Family/Other Pancreatic cancer Family history of problems with anesthesia: No Surgical History Surgical History History of radiofrequency ablation procedure for cardiac arrhythmia History of cardiac defibrillator placement Hx of cardiac catheterization (~06/2017) Hx of tubal ligation History of Problems with Anesthesia: No Social History Social History Household Members: Significant Other Housing: House Do you presently have visiting nurse or other home services: No Alcohol intake: never Comment: moderate risk Patient Tobacco Use Status: Never used Tobacco e-Cigarette/Vaping Use: Never Used Second Hand Smoke Exposure: No service: No Current occupational status: unemployed Cognitive needs: No Hearing needs: No Vision needs: Yes Meds Allergies Allergy/AdvReac Type Severity Reaction Status Date / Time rivaroxaban (From XARELTO) AdvReac Intermediate LEG EDEMA, Verified 12/07/24 11:53 RASH Exam Airway Mallampati Class: II TM Dist: >3cm Neck ROM: Full Denture: Upper Heart: irreg Lungs: cta Assessment and Plan Assessment Anesthesia Assessment: Anesthesia Plan Discussed and Chart Reviewed Final Anesthetic Review Family History of Problems with Anesthesia: No History of Problems with Anesthesia: No NPO: Yes ASA Class: III Final Preanesthetic Review: No Changes in Pt Med Stat, Meds/Allgs Chart Reviewed and Consent Obtained/Reviewed Patient Risk: Intermediate Procedure Risk: Intermediate Anesthetic Plan Anesthetic Plan: GA Disposition: Standard PACU
--- NOTE | 2024-12-08 08:51 | P.CONCA_ITS ---
History of Present Illness History of Present Illness Date of Service: 12/08/24 Chief complaint: afib RVR Narrative: This is a cardiology consultation regarding atrial fibrillation. This is a patient of Dr. Bruno who was seen in the clinic yesterday. According to his he has assessment, patient was in atrial fibrillation rapid rate. Over the last few days apparently she had not been feeling good. She has been feeling heart pounding type sensations and that led to the clinic visit. She has also noticed some shortness of breath as well. She has been on sotalol 120 mg b.i.d.. Per note, she has also had a prior ablation. She has an ICD in place. Review of Systems 2 Review of Systems: Yes all other systems are reviewed and are negative Constitutional: Constitutional: Reports as per HPI and Reports no additional constitutional complaints Eyes: Eyes: Reports as per HPI and Denies no additional eye complaints ENT: Denies system reviewed and no additional complaints, except as documented and Reports as per HPI Cardiovascular: Cardiovascular: Reports as per HPI, Reports no additional cardiovascular complaints, Denies acrocyanosis, Denies cool extremities, Denies chest pain, Denies leg edema, Denies lightheadedness, Denies palpitations and Reports dyspnea Respiratory: Respiratory: Reports as per HPI, Denies no additional respiratory complaints and Reports dyspnea Gastrointestinal: Gastrointestinal: Reports as per HPI and Denies no additional gastrointestinal complaints Genitourinary: Genitourinary: Reports as per HPI Musculoskeletal: Musculoskeletal: Reports no additional musculoskeletal complaints and Reports as per HPI Integumentary/Breasts: Skin/Breast: Reports system reviewed and no additional complaints, except as docu Neurologic: Reports system reviewed and no additional complaints, except as documented and Reports as per HPI Psychiatric: Psychiatric: Reports no additional psychiatric complaints and Reports as per HPI Endocrine: Endocrine: Reports no additional endocrine complaints, Reports as per HPI and Denies palpitations Hematologic/Lymphatic: Hematologic/Lymphatic: Reports no additional hematologic/lymphatic complaints and Reports as per HPI Allergic/Immunologic: Allergic/Immunologic: Reports no additional allergic/immunologic complaints and Reports as per HPI [facility] Past Medical History Medical History Heart failure with reduced ejection fraction Chronic radicular pain of lower back Chest pain Encounter for monitoring sotalol therapy Hypotension arterial Osteoporosis screening Transaminitis Biventricular ICD (implantable cardioverter-defibrillator) in place Nonischemic cardiomyopathy SVT (supraventricular tachycardia) PAF (paroxysmal atrial fibrillation) HLD (hyperlipidemia) HTN (hypertension) History of cardioversion Obesity (BMI 30-39.9) Graves' disease in remission Family History Family History Father Stroke Hypertension Mother Hypertension Diabetes Daughter AVM (arteriovenous malformation) Son No problems noted. Sister No problems noted. Brother No problems noted. Brother No problems noted. Brother No problems noted. Brother No problems noted. Family/Other Pancreatic cancer Surgical History Surgical History History of radiofrequency ablation procedure for cardiac arrhythmia History of cardiac defibrillator placement Hx of cardiac catheterization (~06/2017) Hx of tubal ligation Social History Social History Household Members: Significant Other Housing: House Do you presently have visiting nurse or other home services: No Alcohol intake: never Comment: moderate risk Patient Tobacco Use Status: Never used Tobacco Smoked in Last 30 Days: No e-Cigarette/Vaping Use: Never Used Second Hand Smoke Exposure: No Use of substances other than those prescribed or required for medical reasons: No Advance Directives: No Advance Directives Information Provided: Yes service: No Current occupational status: unemployed Cognitive needs: No Hearing needs: No Vision needs: Yes Meds Allergies Allergy/AdvReac Type Severity Reaction Status Date / Time rivaroxaban (From XARELTO) AdvReac Intermediate LEG EDEMA, Verified 12/07/24 11:53 RASH Active Medications: Current Medications Acetaminophen (Acetaminophen 325 Mg Tablet) 650 mg PO Q6H PRN PRN Reason: Pain, Mild 1-3,fever,headache Last Admin: 12/07/24 21:29 Dose: 650 mg Apixaban (Apixaban 5 Mg Tablet) 5 mg PO BID [facility] Last Admin: 12/07/24 21:28 Dose: 5 mg Calcium Carbonate (Calcium Carbonate 750 Mg Tab.Chew) 750 mg PO Q4H PRN PRN Reason: Heartburn Clotrimazole (Clotrimazole 1 % Cream 15 Gm Tube) 1 appl TOPICAL BID ANTHONY Last Admin: 12/07/24 21:32 Dose: 1 appl Magnesium Hydroxide (Milk Of Magnesia 30 Ml Oral.Susp) 30 ml PO DAILY PRN PRN Reason: Constipation Melatonin (Melatonin 3 Mg Tablet) 6 mg PO BEDTIME PRN PRN Reason: Insomnia Montelukast Sodium (Montelukast Sodium 10 Mg Tablet) 10 mg PO BEDTIME [facility] Last Admin: 12/07/24 21:28 Dose: 10 mg Pyridoxine HCl (Pyridoxine Hcl (Vitamin B6) 50 Mg Tablet) 100 mg PO DAILY [facility] Sodium Chloride (0.9 % Sodium Chloride Flush 3 Ml Syringe) 3 ml IVFLUSH QSHIFT [facility] Last Admin: 12/08/24 00:02 Dose: 3 ml Sotalol HCl (Sotalol Hcl 80 Mg Tablet) 160 mg PO BID [facility] Last Admin: 12/07/24 21:31 Dose: 160 mg Tramadol HCl (Tramadol Hcl 50 Mg Tablet) 50 mg PO BID PRN PRN Reason: Pain, Severe (Pain Scale 7-10) Physical Exam 2 Vital Signs: Vital Signs: Last Vital Signs Temp 98.2 F 12/08/24 08:28 Pulse 76 12/08/24 08:28 Resp 14 12/08/24 08:28 BP 136/73 12/08/24 08:28 Pulse Ox 96 12/08/24 08:28 O2 Del Method Room Air 12/08/24 08:28 BMI result Body Mass Index 30.7 Const: General: comfortable and no acute distress O rientation/consciousness: patient oriented x3 HEENT: Other: Unremarkable Head: Yes normal to inspection Neck: Neck: Yes normal visual inspection Chest: Chest palpation & inspection: normal inspection of the chest Resp: Auscultation: clear to auscultation bilaterally Cardio: Palpation: normal PMI Heart sounds: S1 normal heart sound present, S2 normal heart sound present, no gallops, no murmurs and no rubs GI: Palpation (GI): Soft to palpation Back/Spine/Pelvis: Other: unremarkable Skin: General skin exam: no rashes or lesions noted Neuro: General: patient oriented x3 Extrem: General: Yes normal to inspection Psych: Mental Status: mental status grossly normal Objective Labs and Meds 12/07/24 11:45 12/08/24 05:08 Lab results: Laboratory Results - last 24 hr 12/07/24 12/07/24 12/08/24 11:44 11:45 05:08 WBC 6.8 RBC 4.35 Hgb 12.6 Hct 38.1 MCV 87.6 MCH 29.0 MCHC 33.1 RDW 13.5 Plt Count 252 MPV 10.2 Immature Gran % (Auto) 0.3 Neut % (Auto) 59.7 Lymph % (Auto) 29.1 Pershing % (Auto) 9.0 Eos % (Auto) 1.3 Baso % (Auto) 0.6 Lymph # (Auto) 2.0 Pershing # (Auto) 0.6 Eos # (Auto) 0.1 Baso # (Auto) 0.0 Abs Immat Gran (auto) 0.02 Absolute Neuts (auto) 4.1 Absolute Nucleated RBC 0.000 Nucleated RBC % (auto) 0.0 PT 15.5 H INR 1.4 H APTT 39.8 H Sodium 143 142 Potassium 4.1 3.3 Chloride 105 108 Carbon Dioxide 32 H 26 Anion Gap 10 L 11 L BUN 22 H 17 H Creatinine 0.82 0.64 Estim Creat Clear Calc 78.0 100.0 Estimated GFR > 60 > 60 Random Glucose 137 H 98 Calcium 9.0 8.6 Total Bilirubin 0.8 AST 20 ALT 28 Alkaline Phosphatase 118 H Troponin I High Sens 6.5 NT-Pro-B Natriuret Pep 1461.7 H Total Protein 6.9 Albumin 4.3 TSH 1.15 ECG Interpretation: Initial EKG, difficult to interpret but suspect atrial fibrillation with rapid rate with a nonspecific intraventricular conduction defect versus pacing. PVCs. Imaging Radiologist's impression: Impressions Chest X-Ray 12/07/24 13:14 IMPRESSION: No evidence for acute disease in the chest. Electronically signed by: Rosanna Mathew MD 12/07/2024 01:27 PM EDT Assessment and Plan (1) Biventricular ICD (implantable cardioverter-defibrillator) in place: Status: Acute (2) Atrial fibrillation with RVR: Status: Acute (3) Nonischemic cardiomyopathy: Status: Acute Plan Suspected atrial fibrillation with rapid rate all the EKGs somewhat difficult to interpret. Sotalol dose has already been increased to 160 mg b.i.d.. She is already on Eliquis. Plan for cardioversion today as earlier decided. Procedures Date of Service Date of Service: 12/08/24
[2024-12-08] MEDS: Clotrimazole 1 % Cream 15 GM TUBE 1 APPL TOPICAL ×2 (09:13→21:31)
--- NOTE | 2024-12-08 09:24 | MHC.SHP ---
Pre-Procedural Eval Section A - 24 Hr Update-Section A only Date of Service: 12/08/24 The patient is an INPATIENT: Yes Section B - Complete if H&P > 30 days Chief Complaint: afib RVR Allergies: Allergies Allergy/AdvReac Type Severity Reaction Status Date / Time rivaroxaban (From XARELTO) AdvReac Intermediate LEG EDEMA, Verified 12/07/24 11:53 RASH Plan I have reviewed the history and physical and performed a pertinent physical examination on my patient. No changes have occurred unless specified. Time Spent With Patient Time: Total time managing care of this patient today ____ minutes.
--- NOTE | 2024-12-08 09:24 | HO.CARDIVERS ---
Cardioversion Procedure Note Cardioversion Date of Procedure: 12/08/2024 Pre-Op Diagnosis: Atrial fibrillation Post-Op Diagnosis: AV paced rhythm Consent: Informed consent obtained. Procedure: After informed consent was obtained, patient was taken to the PACU. The patient was then positioned appropriately. The cardioversion pads were placed in anteroposterior position. Once under anesthesia, 120 joules of synchronized shock was administered. The rhythm remained in atrial fibrillation. Then reattempted with 150J and converted to AV paced rhythm. Complications: None Impression: Successful cardioversion. Recommendations: Continue Sotalol.
--- NOTE | 2024-12-08 10:22 | ECG_ITS ---
Test Reason : post cardioversion Blood Pressure : */* mmHG Vent. Rate : 70 BPM Atrial Rate : 70 BPM P-R Int : 168 ms QRS Dur : 164 ms QT Int : 528 ms P-R-T Axes : 114 269 72 degrees QTcB Int : 570 ms AV dual-paced rhythm Abnormal ECG When compared with ECG of 07-Dec-2024 11:36, Rhythm change Referred By: Lidia Chacon Electronically Signed By: LIDIA CHACON
--- NOTE | 2024-12-08 12:52 | MHC.CM.PN ---
CM attempted to meet with Patient in the ED and was told that Patient is in Short Stay Surgery. HCP does not appear to be invoked and CM cannot obtain Patient's permission to speak with family.IMM and Initial Assessment will have to be delayed for now; CM has asked ED RN/Jayla to let CM know when Patient returns from surgery.
--- NOTE | 2024-12-08 13:42 | HO.PM.IMPN ---
Subjective Subjective Date of Service: 12/08/24 Interval History: Patient seen examined at bedside this morning, patient with plans on going for cardioversion today. Patient states that she has had prior cardiac ablations in the past. Review of Systems Review of Systems: Yes all other systems are reviewed and are negative Physical Exam Exam: Exam: General: AxOx3, No acute distress Head: AT/NC ENT: Moist mucous membranes Neck: supple CVS; irregularly irregular, S1 S2 normal Lungs: Clear bilateral breath sounds, no wheezes or crackles Abd: Soft non tender, non distended Ext: No edema and no calf tenderness MSK: moving all 4 limbs Skin: No cyanosis or edema Psych: Cooperative with exam Neurology: no focal deficit Vital Signs: Vital Signs: Last Vital Signs Temp 97 F 12/08/24 10:25 Pulse 72 12/08/24 11:55 Resp 18 12/08/24 11:55 BP 122/80 12/08/24 11:55 Pulse Ox 97 12/08/24 11:55 O2 Del Method Room Air 12/08/24 11:55 O2 Flow Rate 2 12/08/24 10:35 BMI result Body Mass Index 30.7 Objective Data Active Medications Acetaminophen (Acetaminophen 325 Mg Tablet) 650 mg PO Q6H PRN PRN Reason: Pain, Mild 1-3,fever,headache Last Admin: 12/07/24 21:29 Dose: 650 mg Documented By: YONI Apixaban (Apixaban 5 Mg Tablet) 5 mg PO BID [facility] Last Admin: 12/08/24 09:13 Dose: 5 mg Documented By: EVENS Calcium Carbonate (Calcium Carbonate 750 Mg Tab.Chew) 750 mg PO Q4H PRN PRN Reason: Heartburn Clotrimazole (Clotrimazole 1 % Cream 15 Gm Tube) 1 appl TOPICAL BID [facility] Last Admin: 12/08/24 09:13 Dose: 1 appl Documented By: EVENS Magnesium Hydroxide (Milk Of Magnesia 30 Ml Oral.Susp) 30 ml PO DAILY PRN PRN Reason: Constipation Melatonin (Melatonin 3 Mg Tablet) 6 mg PO BEDTIME PRN PRN Reason: Insomnia Montelukast Sodium (Montelukast Sodium 10 Mg Tablet) 10 mg PO BEDTIME [facility] Last Admin: 12/07/24 21:28 Dose: 10 mg Documented By: HO.RIVED Pyridoxine HCl (Pyridoxine Hcl (Vitamin B6) 50 Mg Tablet) 100 mg PO DAILY [facility] Last Admin: 12/08/24 09:13 Dose: 100 mg Documented By: EVENS Sodium Chloride (0.9 % Sodium Chloride Flush 3 Ml Syringe) 3 ml IVFLUSH QSHIFT [facility] Last Admin: 12/08/24 09:17 Dose: 3 ml Documented By: EVENS Sotalol HCl (Sotalol Hcl 80 Mg Tablet) 160 mg PO BID [facility] Last Admin: 12/08/24 09:13 Dose: 160 mg Documented By: EVENS Tramadol HCl (Tramadol Hcl 50 Mg Tablet) 50 mg PO BID PRN PRN Reason: Pain, Severe (Pain Scale 7-10) Labs 12/07/24 11:45 12/08/24 05:08 Labs: Laboratory Results - last 24 hr 12/08/24 05:08 Anion Gap 11 L Estim Creat Clear Calc 100.0 Estimated GFR > 60 Random Glucose 98 Calcium 8.6 Assessment and Plan (1) Heart failure with improved ejection fraction (HFimpEF): Status: Acute (2) Atrial fibrillation with RVR: Status: Acute (3) Nonischemic cardiomyopathy: Status: Acute Plan 69-year-old female with a history of paf on Eliquis s/p CV and ablation x2 , HFrEF, AICD who was sent from the cardiology office for afib with RVR, with plans on cardioversion today. Atrial fibrillation with rapid ventricular response s/p IV digoxin in ED NPO for cardioversion today continue sotalol 160mg due to soft bp will hold entresto, hold lasix bedrest HFimpEF not in overt HF at this time hold lasix, Entresto due to low BP, will restart once BP improves Chronic pain Continue tramadol p.r.n. DVT prophylaxis-Eliquis Code status-full code Quality Stroke Does the patient have a stroke diagnosis?: No VTE Prior VTE?: No VTE Risk Level:: Medical - moderate - high VTE Device Contraindication: N/A - Device Ordered VTE Drug Contraindication: N/A - Med Ordered
[2024-12-09] VITALS (7 sets, daily range): BP systolic 115–139; BP diastolic 56–63; PULSE 68–79; RESP 16–20; TEMP 36.2–37; O2SAT 94–97
--- NOTE | 2024-12-09 09:14 | ECG_ITS ---
Test Reason : check QT Blood Pressure : */* mmHG Vent. Rate : 77 BPM Atrial Rate : 77 BPM P-R Int : 198 ms QRS Dur : 104 ms QT Int : 422 ms P-R-T Axes : 77 -72 83 degrees QTcB Int : 477 ms Atrial-sensed ventricular-paced rhythm Abnormal ECG When compared with ECG of 08-Dec-2024 10:34, No significant changes seen Referred By: Lidia Chacon Electronically Signed By: LIDIA CHACON
[2024-12-09] MEDS: Sacubitril/Valsartan 24/26 1 TAB TABLET PO ×2 (09:32→20:10)
[2024-12-09] MEDS: Clotrimazole 1 % Cream 15 GM TUBE 1 APPL TOPICAL ×2 (09:33→20:11)
[2024-12-09] MEDS: 0.9 % Sodium Chloride Flush 3 ML SYRINGE IVFLUSH ×3 (09:33→20:11)
--- NOTE | 2024-12-09 09:49 | PM.PNCARD ---
Subjective Subjective Date of Service: 12/09/24 Interval history: Underwent cardioversion yesterday. She remains in sinus rhythm. No new concerns. Remains on sotalol. Review of Systems Review of Systems Yes all other systems are reviewed and are negative Constitutional: Reports as per HPI and Reports no additional constitutional complaints Eyes: Reports as per HPI and Denies no additional eye complaints Denies system reviewed and no additional complaints, except as documented and Reports as per HPI Cardiovascular: Reports as per HPI, Reports no additional cardiovascular complaints, Denies acrocyanosis, Denies cool extremities, Denies chest pain, Denies leg edema, Denies lightheadedness, Denies palpitations and Denies dyspnea Respiratory: Reports as per HPI, Denies no additional respiratory complaints and Denies dyspnea Gastrointestinal: Reports as per HPI and Denies no additional gastrointestinal complaints Genitourinary: Reports as per HPI Musculoskeletal: Reports no additional musculoskeletal complaints and Reports as per HPI Skin/Breast: Reports system reviewed and no additional complaints, except as docu Reports system reviewed and no additional complaints, except as documented and Reports as per HPI Psychiatric: Reports no additional psychiatric complaints and Reports as per HPI Endocrine: Reports no additional endocrine complaints, Reports as per HPI and Denies palpitations Hematologic/Lymphatic: Reports no additional hematologic/lymphatic complaints and Reports as per HPI Allergic/Immunologic: Reports no additional allergic/immunologic complaints and Reports as per HPI Physical Exam Vital Signs: Last Vital Signs Temp 97.6 F 12/09/24 07:11 Pulse 71 12/09/24 07:11 Resp 18 12/09/24 07:11 BP 139/60 12/09/24 09:32 Pulse Ox 94 12/09/24 07:11 O2 Del Method Room Air 12/09/24 07:11 O2 Flow Rate 2 12/08/24 10:35 BMI result Body Mass Index 30.7 Const General: comfortable and no acute distress Orientation/consciousness: patient oriented x3 HEENT Other: Unremarkable Head: Yes normal to inspection Neck Neck: Yes normal visual inspection Chest Chest palpation & inspection: normal inspection of the chest Resp Auscultation: clear to auscultation bilaterally Cardio Palpation: normal PMI Heart sounds: S1 normal heart sound present, S2 normal heart sound present, no gallops, no murmurs and no rubs GI Palpation (GI): Soft to palpation Back/Spine/Pelvis Other: unremarkable Skin General skin exam: no rashes or lesions noted Neuro General: patient oriented x3 Extrem General: Yes normal to inspection Psych Mental Status: mental status grossly normal Objective Labs and Meds 12/07/24 11:45 12/08/24 05:08 Progress Note: A&P Assessment and plan (1) Biventricular ICD (implantable cardioverter-defibrillator) in place: Status: Acute (2) Atrial fibrillation with RVR: Status: Acute (3) Nonischemic cardiomyopathy: Status: Acute Plan Status post cardioversion yesterday. Rhythm rhythm is now back to normal sinus rhythm. She has been on a higher dose of sotalol at 160 mg b.i.d.. In the EKG from today, corrected QT is 479 milliseconds. Atrial sensed biventricular paced. She can be monitored for another day and then be discharged home. Follow up in clinic. Discussed with Dr. Vela. Time Spent With Patient Time: Total time managing care of this patient today ____ minutes. Progress Note: Quality Stroke Does the patient have a stroke diagnosis?: No Procedures Date of Service Date of Service: 12/09/24
--- NOTE | 2024-12-09 14:07 | HO.PM.IMPN ---
Subjective Subjective Date of Service: 12/09/24 Interval History: feels well 1d p cardioversion, remains in NSR no chest pain or dyspnea This history was taken in [place] from the patient. Review of Systems Review of Systems: Yes all other systems are reviewed and are negative Physical Exam Vital Signs: Vital Signs: Last Vital Signs Temp 97.1 F 12/09/24 11:13 Pulse 75 12/09/24 11:13 Resp 18 12/09/24 11:13 BP 133/63 12/09/24 11:13 Pulse Ox 97 12/09/24 11:13 O2 Del Method Room Air 12/09/24 11:13 O2 Flow Rate 2 12/08/24 10:35 BMI result Body Mass Index 30.7 Gen: in no acute distress HEENT: sclera anicteric, moist mucus membranes Neck: supple Lungs: clear to auscultation bilaterally Heart: regular rate and rhythm, no murmurs Abd: soft, non-tender, non-distended Ext: no edema Skin: warm/well-perfused Neuro: alert and oriented x3, no focal findings Psych: appropriate affect Objective Data Active Medications Acetaminophen (Acetaminophen 325 Mg Tablet) 650 mg PO Q6H PRN PRN Reason: Pain, Mild 1-3,fever,headache Last Admin: 12/08/24 21:32 Dose: 650 mg Documented By: AMPARO Apixaban (Apixaban 5 Mg Tablet) 5 mg PO BID [facility] Last Admin: 12/09/24 09:32 Dose: 5 mg Documented By: REAL Calcium Carbonate (Calcium Carbonate 750 Mg Tab.Chew) 750 mg PO Q4H PRN PRN Reason: Heartburn Clotrimazole (Clotrimazole 1 % Cream 15 Gm Tube) 1 appl TOPICAL BID [facility] Last Admin: 12/09/24 09:33 Dose: 1 appl Documented By: REAL Furosemide (Furosemide 40 Mg Tablet) 40 mg PO DAILY [facility]; Protocol Last Admin: 12/09/24 09:32 Dose: 40 mg Documented By: REAL Magnesium Hydroxide (Milk Of Magnesia 30 Ml Oral.Susp) 30 ml PO DAILY PRN PRN Reason: Constipation Melatonin (Melatonin 3 Mg Tablet) 6 mg PO BEDTIME PRN PRN Reason: Insomnia Montelukast Sodium (Montelukast Sodium 10 Mg Tablet) 10 mg PO BEDTIME [facility] Last Admin: 12/08/24 21:30 Dose: 10 mg Documented By: AMPARO Pyridoxine HCl (Pyridoxine Hcl (Vitamin B6) 50 Mg Tablet) 100 mg PO DAILY [facility] Last Admin: 12/09/24 09:32 Dose: 100 mg Documented By: REAL Sacubitril/Valsartan (Sacubitril/Valsartan 1 Tab Tablet) 1 tab PO BID [facility]; Protocol Last Admin: 12/09/24 09:32 Dose: 1 tab Documented By: REAL Sodium Chloride (0.9 % Sodium Chloride Flush 3 Ml Syringe) 3 ml IVFLUSH QSHIFT [facility] Last Admin: 12/09/24 09:33 Dose: 3 ml Documented By: REAL Sotalol HCl (Sotalol Hcl 80 Mg Tablet) 160 mg PO BID [facility] Last Admin: 12/09/24 09:32 Dose: 160 mg Documented By: REAL Tramadol HCl (Tramadol Hcl 50 Mg Tablet) 50 mg PO BID PRN PRN Reason: Pain, Severe (Pain Scale 7-10) Labs 12/07/24 11:45 12/08/24 05:08 Assessment and Plan (1) Heart failure with improved ejection fraction (HFimpEF): Status: Acute (2) Atrial fibrillation with RVR: Status: Acute (3) Nonischemic cardiomyopathy: Status: Acute Plan d3, 69yo F with pAF on Eliquis s/p CV + ablation x2, NICM s/p AICD sent in from [facility] for AF/RVR AF/RVR - given IV digoxin in ED, then cardioverted successfully 12/08 - sotalol increased from 120 to 160 mg bid, monitor 1 more day, repeat EKG tomorrow, discussed with Cardiology - continue Eliquis chronic HFpEF: continue Entresto, furosemide chronic pain: continue tramadol VTE ppx: Eliquis dispo: home In my clinical judgment, the patient requires continued inpatient hospitalization for the following reasons: cardiac monitoring for sotalol dose change Total time managing care of this patient today: 35 minutes. Quality Stroke Does the patient have a stroke diagnosis?: No VTE Prior VTE?: No VTE Risk Level:: Medical - moderate - high VTE Device Contraindication: N/A - Device Ordered VTE Drug Contraindication: N/A - Med Ordered
--- NOTE | 2024-12-09 16:13 | HO.POSTANES ---
Post Anesthesia Evaluation Post Anesthesia Evaluation Date of Service: 12/09/24 Vital Signs: Vital Signs Temp Pulse Resp BP Pulse Ox O2 Del Method 12/09/24 15:14 97.6 F 68 16 132/59 L 96 Room Air 12/09/24 11:13 97.1 F 75 18 133/63 97 Room Air 12/09/24 09:32 139/60 12/09/24 07:11 97.6 F 71 18 139/60 94 Room Air Anesthesia: General Mental Status: Awake Pain Control: Satisfactory Nausea/Vomiting: None Hydration: Adequate Anesthesia-Related Issues: No Anes. Related Issues
[2024-12-10] MEDS: Milk of Magnesia 30 ML ORAL.SUSP PO (01:31)
[2024-12-10 03:13] VITALS: BP 128/59; PULSE 86; RESP 18; TEMP 36.8; O2SAT 98
[2024-12-10 07:08] VITALS: BP 134/74; PULSE 76; RESP 18; TEMP 36.8; O2SAT 93
--- NOTE | 2024-12-10 08:43 | ECG_ITS ---
Test Reason : on sotalol, check QT Blood Pressure : */* mmHG Vent. Rate : 70 BPM Atrial Rate : 70 BPM P-R Int : 156 ms QRS Dur : 156 ms QT Int : 500 ms P-R-T Axes : * 267 82 degrees QTcB Int : 540 ms AV paced rhythm Right bundle branch block Inferior infarct , age undetermined Cannot rule out Anterior infarct , age undetermined Abnormal ECG When compared to the previous EKG of No significant changes seen Referred By: Doug Rosales Electronically Signed By: Edmund Miles
[2024-12-10] MEDS: Sacubitril/Valsartan 24/26 1 TAB TABLET PO (09:10)
[2024-12-10] MEDS: 0.9 % Sodium Chloride Flush 3 ML SYRINGE IVFLUSH (09:10)
--- NOTE | 2024-12-10 10:58 | PM.PNCARD ---
Subjective Subjective Date of Service: 12/10/24 Interval history: Patient states she feels fine. Remains in sinus rhythm. Review of Systems Review of Systems Yes all other systems are reviewed and are negative Constitutional: Reports as per HPI and Reports no additional constitutional complaints Eyes: Reports as per HPI and Denies no additional eye complaints Denies system reviewed and no additional complaints, except as documented and Reports as per HPI Cardiovascular: Reports as per HPI, Reports no additional cardiovascular complaints, Denies acrocyanosis, Denies cool extremities, Denies chest pain, Denies leg edema, Denies lightheadedness, Denies palpitations and Denies dyspnea Respiratory: Reports as per HPI, Denies no additional respiratory complaints and Denies dyspnea Gastrointestinal: Reports as per HPI and Denies no additional gastrointestinal complaints Genitourinary: Reports as per HPI Musculoskeletal: Reports no additional musculoskeletal complaints and Reports as per HPI Skin/Breast: Reports system reviewed and no additional complaints, except as docu Reports system reviewed and no additional complaints, except as documented and Reports as per HPI Psychiatric: Reports no additional psychiatric complaints and Reports as per HPI Endocrine: Reports no additional endocrine complaints, Reports as per HPI and Denies palpitations Hematologic/Lymphatic: Reports no additional hematologic/lymphatic complaints and Reports as per HPI Allergic/Immunologic: Reports no additional allergic/immunologic complaints and Reports as per HPI Physical Exam Vital Signs: Last Vital Signs Temp 98.3 F 12/10/24 07:08 Pulse 76 12/10/24 07:08 Resp 18 12/10/24 07:08 BP 134/74 12/10/24 07:08 Pulse Ox 93 12/10/24 07:08 O2 Del Method Room Air 12/10/24 07:08 O2 Flow Rate 2 12/08/24 10:35 BMI result Body Mass Index 30.7 Const General: comfortable and no acute distress Orientation/consciousness: patient oriented x3 HEENT Other: Unremarkable Head: Yes normal to inspection Neck Neck: Yes normal visual inspection Chest Chest palpation & inspection: normal inspection of the chest Resp Auscultation: clear to auscultation bilaterally Cardio Palpation: normal PMI Heart sounds: S1 normal heart sound present, S2 normal heart sound present, no gallops, no murmurs and no rubs GI Palpation (GI): Soft to palpation Back/Spine/Pelvis Other: unremarkable Skin General skin exam: no rashes or lesions noted Neuro General: patient oriented x3 Extrem General: Yes normal to inspection Psych Mental Status: mental status grossly normal Objective Labs and Meds 12/07/24 11:45 12/08/24 05:08 Progress Note: A&P Assessment and plan (1) Biventricular ICD (implantable cardioverter-defibrillator) in place: Status: Acute (2) Atrial fibrillation with RVR: Status: Acute (3) Nonischemic cardiomyopathy: Status: Acute Plan Status post cardioversion. Rhythm rhythm is now back to normal sinus rhythm. She has been on a higher dose of sotalol at 160 mg b.i.d.. In the EKG yesterday, corrected QT is 479 milliseconds. Atrial sensed biventricular paced. Recheck today. Potassium was 3.3 on 12/08. Rechecked that. Likely discharged today after the above. Follow up in clinic. Time Spent With Patient Time: Total time managing care of this patient today ____ minutes. Progress Note: Quality Stroke Does the patient have a stroke diagnosis?: No Procedures Date of Service Date of Service: 12/10/24
[2024-12-10 11:15] VITALS: BP 131/68; PULSE 74; RESP 18; TEMP 36.9; O2SAT 97
--- NOTE | 2024-12-10 11:20 | MHC.CM.PN ---
IMM GIVEN 12/10. THIS CM MET WITH PATIENT WITH THE ASSISTANCE OF A ENVIRONMENTAL SCIENCE TECHNICIAN, ALTHOUGH PATIENT DID UNDERSTAND AND SPEAK [place] WELL. PER PATIENT, SHE LIVES AT HOME WITH HER , WHO HELPS HER. PATIENT WILL ARRANGE HER TRANSPORT [place] AT [place]. PATIENT STATES SHE COMPLETED A HCP A LONG TIME AGO, BUT ISN'T SURE IF SHE HAS A COPY. THIS CM OFFERED TO ASSIST IN PATIENT COMPLETING A NEW ONE, PATIENT DECLINED AT THIS TIME. PCP: COLETTE CALERO
[2024-12-10 12:31] LABS: Anion Gap 12 (12-20); Blood Urea Nitrogen 8 mg/dL (9-16); Calcium 9.2 mg/dL (8.4-10.2); Carbon Dioxide 29 mmol/L (22-29); Chloride 106 mmol/L (96-108); Creatinine Clr Calc Pharmacy 103.2; Estimated Glomerular Filt Rate > 60; Magnesium 2.3 mg/dL (1.6-2.6); Potassium 4.2 mmol/L (3.3-5.1); Sodium 143 mmol/L (135-145)
--- NOTE | 2024-12-10 14:17 | P.DS_ITS ---
DS: Providers Provider Date of Service: 12/10/24 Date of admission: 12/07/24 14:20 Date of discharge: 12/10/24 Primary care physician: Jeremy Smith PA-C Consults: 12/07/24 14:23 Consult to Cardiology Routine Consulting Provider[place] [facility] Reason for consultation: afib rvr, hypotension Has provider been notified: Yes DS: Diagnosis Discharge Diagnosis (1) Biventricular ICD (implantable cardioverter-defibrillator) in place: Status: Acute (2) Atrial fibrillation with RVR: Status: Acute (3) Nonischemic cardiomyopathy: Status: Acute DS: Summary Hospital Course Hospital Course: From the history and physical by the admitting hospitalist, GALILEA Bonilla, 12/07/24: This is a 69-year-old female with a history of HFrEF, paf on Eliquis, SVT, biventricular ICD who was sent from the cardiology office due to atrial fibrillation with rapid ventricular response. Patient reports since Wednesday she has not been feeling well. She reports intermittent, intermittent dizziness, chest discomfort and low blood pressure. In the emergency department her heart rate was uncontrolled, she received 2 doses of IV digoxin. Her blood pressure has remained around 90 systolic. She will be admitted to the hospital for further management of AFib RVR with plan for cardioversion in the a.m.. She reports being compliant with all her medications. 69yo F with pAF on Eliquis s/p CV + ablation x2, NICM s/p AICD [place] [facility] [place]. Given IV digoxin in ED and then admitted to the telemetry unit with Cardiology consulted. Underwent successful DC cardioversion 12/08/24. Sotalol increased from 120 to 160 mg bid. Eliquis continued. Will follow up with Cardiology in 1-2 weeks. Time Attestation Discharge Coordination Time (in mins): 35 Quality: Safe Use of Opioids Does Pt have an Active Cancer Diagnosis on the Problem List?: No Quality: Stroke Does the patient have a stroke diagnosis?: No Physical Exam Vital Signs: Vital Signs: Last Vital Signs Temp 98.5 F 12/10/24 11:15 Pulse 74 12/10/24 11:15 Resp 18 12/10/24 11:15 BP 131/68 12/10/24 11:15 Pulse Ox 97 12/10/24 11:15 O2 Del Method Room Air 11/02/25 11:15 O2 Flow Rate 2 12/08/24 10:35 BMI result Body Mass Index 30.7 Gen: in no acute distress HEENT: sclera anicteric, moist mucus membranes Neck: supple Lungs: clear to auscultation bilaterally Heart: regular rate and rhythm, no murmurs Abd: soft, non-tender, non-distended Ext: no edema Skin: warm/well-perfused Neuro: alert and oriented x3, no focal findings Psych: appropriate affect DS: Data Data Completed and Pending Completed studies during hospitalization [Text1]: Laboratory Results WBC 6.8 X10*3/uL (4.8-10.8) 12/07/24 11:45 RBC 4.35 X10*6/uL (4.20-5.50) 12/07/24 11:45 Hgb 12.6 g/dl (12.0-16.0) 12/07/24 11:45 Hct 38.1 % (37.0-47.0) 12/07/24 11:45 MCV 87.6 fL (80.0-98.0) 12/07/24 11:45 MCH 29.0 pg (27.0-33.0) 12/07/24 11:45 MCHC 33.1 g/dl (31.0-35.0) 12/07/24 11:45 RDW 13.5 % (11.0-16.0) 12/07/24 11:45 Plt Count 252 X10*3/uL (160-400) 12/07/24 11:45 MPV 10.2 fL (9.4-12.3) 12/07/24 11:45 Immature Gran % (Auto) 0.3 % (0.0-0.4) 12/07/24 11:45 Neut % (Auto) 59.7 % (45-73) 12/07/24 11:45 Lymph % (Auto) 29.1 % (20-40) 12/07/24 11:45 [place] % (Auto) 9.0 % (2-11) 12/07/24 11:45 Eos % (Auto) 1.3 % (0-4) 12/07/24 11:45 Baso % (Auto) 0.6 % (0-2) 12/07/24 11:45 Lymph # (Auto) 2.0 X10*3/uL (1.2-4.9) 12/07/24 11:45 [place] # (Auto) 0.6 X10*3/uL (0.1-1.2) 12/07/24 11:45 Eos # (Auto) 0.1 X10*3/uL (0.0-0.4) 12/07/24 11:45 Baso # (Auto) 0.0 X10*3/uL (0.0-0.2) 12/07/24 11:45 Abs Immat Gran (auto) 0.02 X10*3/uL (0.00-0.03) 12/07/24 11:45 Absolute Neuts (auto) 4.1 x10*3/uL (2.0-8.3) 12/07/24 11:45 Absolute Nucleated RBC 0.000 X10*3/uL (0.0-0.012) 12/07/24 11:45 Nucleated RBC % (auto) 0.0 /100WBC (0.0-0.2) 12/07/24 11:45 PT 15.5 SEC (10.9-12.4) H 12/07/24 11:45 INR 1.4 (0.9-1.1) H 12/07/24 11:45 APTT 39.8 SEC (26.7-34.1) H 12/07/24 11:45 Sodium 143 mmol/L (135-145) 12/10/24 12:02 Potassium 4.2 mmol/L (3.3-5.1) D 12/10/24 12:02 Chloride 106 mmol/L (96-108) 12/10/24 12:02 Carbon Dioxide 29 mmol/L (22-29) 12/10/24 12:02 Anion Gap 12 (12-20) 12/10/24 12:02 BUN 8 mg/dL (9-16) L 12/10/24 12:02 Creatinine 0.62 mg/dL (0.5-1.4) 12/10/24 12:02 Estim Creat Clear Calc 103.2 12/10/24 12:02 Estimated GFR > 60 12/10/24 12:02 Random Glucose 133 mg/dL (60-115) H 12/10/24 12:02 Calcium 9.2 mg/dL (8.4-10.2) D 12/10/24 12:02 Magnesium 2.3 mg/dL (1.6-2.6) 12/10/24 12:02 Total Bilirubin 0.8 mg/dL (0.0-1.0) 12/07/24 11:44 AST 20 U/L (5-31) 12/07/24 11:44 ALT 28 U/L (0-31) 12/07/24 11:44 Alkaline Phosphatase 118 U/L (39-117) H 12/07/24 11:44 Troponin I High Sens 6.5 ng/L (<3.5-17.0) 12/07/24 11:44 NT-Pro-B Natriuret Pep 1461.7 pg/mL (<300) H 12/07/24 11:44 Total Protein 6.9 g/dL (6.5-8.0) 12/07/24 11:44 Albumin 4.3 g/dL (3.5-5.0) 12/07/24 11:44 TSH 1.15 uIU/mL (0.32-4.0) 12/07/24 11:44 Impressions Chest X-Ray 12/07/24 13:14 IMPRESSION: No evidence for acute disease in the chest. Electronically signed by: Rosanna Mathew MD 12/07/2024 01:27 PM EDT Discharge Plan Discharge Anticipated Discharge Date/Time: 12/10/24 14:12 Patient Disposition: Home, Self-Care Discharge Diagnosis: atrial fibrillation Referrals: Jeremy Smith PA-C [Primary Care Provider, Internal Medicine] - 1 Week Doug Rosales MD [Physician, Cardiology] - 1 Week Discharge Medications: New sotalol 160 mg tablet 160 mg PO BID Qty: 60 0RF Continued Eliquis 5 mg tablet 5 mg PO BID Qty: 180 3RF furosemide 40 mg tablet 40 mg PO DAILY Qty: 90 3RF Entresto 24-26 mg tablet 1 tab PO BID 90 Days Qty: 180 3RF tamsulosin [Flomax] 0.4 mg capsule 0.4 mg PO DAILY Qty: 30 1RF (DME) blood pressure test kit-large Kit See Rx Instructions .Route Qty: 1 0RF Rx Instructions: As directed pyridoxine (vitamin B6) 100 mg tablet 100 mg PO DAILY 90 Days Qty: 90 3RF (DME) Knee Brace Large-XLarge Misc See Rx Instructions .Route Qty: 1 0RF Rx Instructions: As directed montelukast 10 mg tablet 10 mg PO BEDTIME 90 Days Qty: 90 1RF tramadol 50 mg tablet 50 mg PO BID PRN (Reason: pain) 7 Days Qty: 14 0RF ciclopirox 0.77 % cream 1 appl topical BID 28 Days Qty: 30 0RF Discontinued sotalol 80 mg tablet 120 mg PO BID 90 Days Qty: 270 3RF Discharge Orders: Discharge Order (Routine); Ordered 12/10/24 Ordered By: Lucio Vela Diet: Low salt diet Activity on Discharge: As tolerated Stand Alone Forms: Patient Portal Discharge page Print Language: Portuguese Care Plan Goals: heart health Health Concerns: atrial fibrillation Plan of Treatment: increase sotalol from 120 to 160 mg twice daily continue Eliquis see Cardiology in 1-2 weeks Please follow up with your primary care doctor within 1 week. Return to the hospital if you experience recurrent or worsening symptoms. Assessment: See Discharge Summary.
[2024-12-10 15:30] VITALS: BP 161/90; PULSE 85; RESP 18; TEMP 36.7; O2SAT 96
--- NOTE | 2024-12-10 16:12 | MHC.CM.PN ---
PATIENT IS MEDICALLY CLEARED FOR DISCHARGE HOME SELF-CARE, SHE HAS ARRANGED HER OWN TRANSPORT HOME TODAY.
== END 2024-12-10 15:25 | disposition home or self-care (01) | DRG 309 ==
LOC: HO.ED 13:11 → HO.EDOVER 14:24 → HO.IMC 12-08 15:40
PROVIDERS: Internal Medicine; Physician Assistant; Admitting Provider Physician Assistant Medical; Emergency Provider Emergency Medicine; PCP Physician Assistant; Visit Provider Family Medicine
PROC: 5A2204Z Restoration of Cardiac Rhythm, Single (ICD-10-PCS; principal; 2024-12-08 10:30)
DX: I48.91 Unspecified atrial fibrillation (principal); I50.22 Chronic systolic (congestive) heart failure; I11.0 Hypertensive heart disease with heart failure; I42.8 Other cardiomyopathies; I25.10 Atherosclerotic heart disease of native coronary artery without angina pectoris; G89.29 Other chronic pain; Z95.810 Presence of automatic (implantable) cardiac defibrillator; Z79.01 Long term (current) use of anticoagulants; Z79.899 Other long term (current) drug therapy
CPT/HCPCS: 36415; 71045; 74176; 80048; 80053; 83735; 83880; 84443; 84484; 85025; 85610; 85730; 92960; 93005; 99285; J1160; J2704

== ENCOUNTER → 2024-12-07 12:59 | Outpatient (BNV) | payer MEDICARE, MEDICAID, SELFPAY ==
[2023-05-04 15:23] VITALS: BP 104/68; BP 112/72; BMI 31.3
== END ==
PROVIDERS: Emergency Provider Emergency Medicine; PCP Physician Assistant; Visit Provider Radiology Diagnostic Radiology
DX: R06.02 Shortness of breath (principal)
CPT/HCPCS: 71045

== ENCOUNTER 2024-12-07 14:20 | Outpatient (BNV) | payer MEDICARE, MEDICAID, SELFPAY ==
[2023-05-04 15:23] VITALS: BP 104/68; BP 112/72; BMI 31.3
== END 2024-12-10 08:43 ==
PROVIDERS: Admitting Provider Physician Assistant Medical; Emergency Provider Emergency Medicine; PCP Physician Assistant; Visit Provider Internal Medicine Cardiovascular Disease
DX: I45.10 Unspecified right bundle-branch block (principal); Z95.0 Presence of cardiac pacemaker
CPT/HCPCS: 93010

== ENCOUNTER 2024-12-07 14:20 | Outpatient (BNV) | payer MEDICARE, MEDICAID, SELFPAY ==
[2023-05-04 15:23] VITALS: BP 104/68; BP 112/72; BMI 31.3
== END 2024-12-08 10:22 ==
PROVIDERS: Admitting Provider Physician Assistant Medical; Emergency Provider Emergency Medicine; PCP Physician Assistant; Visit Provider Internal Medicine
DX: R94.31 Abnormal electrocardiogram [ECG] [EKG] (principal); Z95.0 Presence of cardiac pacemaker
CPT/HCPCS: 93010

== ENCOUNTER 2024-12-07 14:20 | Outpatient (BNV) | payer MEDICARE, MEDICAID, SELFPAY ==
[2023-05-04 15:23] VITALS: BP 104/68; BP 112/72; BMI 31.3
== END 2024-12-09 09:14 ==
PROVIDERS: Admitting Provider Physician Assistant Medical; Emergency Provider Emergency Medicine; PCP Physician Assistant; Visit Provider Internal Medicine
DX: R94.31 Abnormal electrocardiogram [ECG] [EKG] (principal); Z95.0 Presence of cardiac pacemaker
CPT/HCPCS: 93010

== ENCOUNTER 2024-12-07 14:20 | Outpatient (BNV) | payer MEDICARE, MEDICAID, SELFPAY ==
[2023-05-04 15:23] VITALS: BP 104/68; BP 112/72; BMI 31.3
== END 2024-12-10 10:26 ==
PROVIDERS: Admitting Provider Physician Assistant Medical; Emergency Provider Emergency Medicine; PCP Physician Assistant; Visit Provider Radiology Diagnostic Radiology
DX: R10.A1 Flank pain, right side (principal)
CPT/HCPCS: 74176

== ENCOUNTER → 2024-12-07 14:20 | Outpatient (BNV) | payer MEDICARE, MEDICAID, SELFPAY ==
[2023-05-04 15:23] VITALS: BP 104/68; BP 112/72; BMI 31.3
== END ==
PROVIDERS: Admitting Provider Physician Assistant Medical; Emergency Provider Emergency Medicine; PCP Physician Assistant; Visit Provider Internal Medicine
DX: Z95.810 Presence of automatic (implantable) cardiac defibrillator (principal); I48.91 Unspecified atrial fibrillation; I42.8 Other cardiomyopathies
CPT/HCPCS: 99233

== ENCOUNTER → 2024-12-07 14:20 | Outpatient (BNV) | payer MEDICARE, MEDICAID, SELFPAY ==
[2023-05-04 15:23] VITALS: BP 104/68; BP 112/72; BMI 31.3
== END ==
PROVIDERS: Admitting Provider Physician Assistant Medical; Emergency Provider Emergency Medicine; PCP Physician Assistant; Visit Provider Physician Assistant Medical
DX: I48.91 Unspecified atrial fibrillation (principal)
CPT/HCPCS: 99223

== ENCOUNTER 2024-12-15 10:13 | Outpatient (AMB) | payer MEDICARE, MEDICAID, SELFPAY ==
[2023-05-04 15:23] VITALS: BP 104/68; BP 112/72; BMI 31.3
--- NOTE | 2024-12-15 10:28 | MHC.PC.OV ---
Vital Signs 12/15/24 10:29 Height 5 ft 9 in Weight 207 lb 8 oz BMI 30.6 BP 150/80 H Blood Pressure Location Lt brachial Position Sitting Pulse 88 Pulse Source Pulse Oximeter Temp 97.1 F Temp Source Temporal Artery Scan Pulse Oximetry (%) 98 Oxygen Delivery Method Room Air Intake Visit Reasons: TCM AFIB DISCHARGED ON 12/09 Intake Note: Patient is here for hospital discharge and TCM follow up. Patient was discharged from [facility] on 12/10/24. 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 per policy Accompanied by: Self / Same As Patient Allergies rivaroxaban (From XARELTO) Adverse Reaction (Intermediate, Verified 12/15/24 10:29) LEG EDEMA, RASH Tobacco use date assessed: 12/15/24 Fall risk assessment: No Falls in past year Last assessed Fall Risk: 12/15/24 Dental Screening Dental Screen Date: 10/24/24 [facility] TCM TCM Information Date of Discharge 12/10/24 Discharged From [facility] Interactive Contact Date (Reference documentation from this date) 12/11/24 HPI Comments History of Present Illness Details 69 y/o Female patient who presents to the clinic today for TCM. Past medical History Significant for HFrEF, paf on Eliquis s/p CV + ablation x2, NICM s/p AICD SVT, and biventricular ICD. She was admitted at [facility] on 12/07 - 12/10 for further management of AFib RVR with with cardioversion. Patient reports she had not been feeling well for awhile. She reports intermittent dizziness, chest discomfort and low blood pressure. In the emergency department heart rate was uncontrolled, she received 2 doses of IV digoxin. Cardioversion on 12/08/24 which went well and Sotalol increased from 120 to 160 mg bid. [facility] Medical History Heart failure with reduced ejection fraction Chronic radicular pain of lower back Chest pain Encounter for monitoring sotalol therapy Hypotension arterial Osteoporosis screening Transaminitis Biventricular ICD (implantable cardioverter-defibrillator) in place Nonischemic cardiomyopathy SVT (supraventricular tachycardia) PAF (paroxysmal atrial fibrillation) HLD (hyperlipidemia) HTN (hypertension) History of cardioversion Obesity (BMI 30-39.9) Graves' disease in remission Surgical History History of radiofrequency ablation procedure for cardiac arrhythmia History of cardiac defibrillator placement Hx of cardiac catheterization (~06/2017) Hx of tubal ligation Family History Father Stroke Hypertension Mother Hypertension Diabetes Daughter AVM (arteriovenous malformation) Son No problems noted. Sister No problems noted. Brother No problems noted. Brother No problems noted. Brother No problems noted. Brother No problems noted. Family/Other Pancreatic cancer Social History Household Members: Significant Other Housing: House Do you presently have visiting nurse or other home services: Yes Alcohol intake: never Comment: moderate risk Patient Tobacco Use Status: Never used Tobacco e-Cigarette/Vaping Use: Never Used Second Hand Smoke Exposure: No service: No Current occupational status: unemployed Cognitive needs: No Hearing needs: No Vision needs: Yes Female Reproductive History Menstrual Age of Menarche: 11 Questionnaire Thrive Questionnaire Date Thrive assessed: 10/24/24 I am a: Patient What is your living situation today?: I have a steady place to live Within the past 12 months, did the food you bought not last and you didn't have the money to get more?: Never true Within the past 12 months, did you worry whether your food would run out before you got money to buy more?: Never true Do you have trouble paying for medicines?: No Do you have trouble getting transportation to medical appointments?: No Do you have trouble paying your heating and electricity bill?: No Do you have trouble taking care of your child, family member or friend?: No Do you have trouble with day-to-day activities such as bathing, preparing meals, shopping, managing finances, etc.?: No Are you currently unemployed and looking for a job?: No Are you interested in more education?: No Please select the resources that you would like help with: None Currently or been in a relationship where the following occur: I choose not to answer THRIVE Score: 0 GARETH-7 AMB Questionnaire GARETH-7 Date GARETH - 7 assessed: 05/25/24 Source: Developed by Drs. Marty Hernandez, Shaylee B.W. Adelfo Hernandez and colleagues, with an educational ziggy from [employer]. Review of Systems Const All systems reviewed & are unremarkable except as noted in HPI and below Physical exam (Primary Care) Vital Signs: Last Vital Signs Temp 97.1 F 12/15/24 10:29 Pulse 88 12/15/24 10:29 BP 150/80 H 12/15/24 10:29 Pulse Ox 98 12/15/24 10:29 Oxygen Delivery Method Room Air 12/15/24 10:29 BMI result Body Mass Index 30.6 Tobacco/Smoking Status: Tobacco use Status Tobacco use date assessed 12/15/24 12/15/24 10:31 Patient Tobacco Use Status Never used Tobacco 12/15/24 10:31 e-Cigarette/Vaping Use Never Used 12/15/24 10:31 Thrive Assessment: Date of Thrive Assessment Date Thrive assessed 10/24/24 12/15/24 10:31 Currently or been in a relationship where the following occur: I choose not to answer Const General: no acute distress Nutritional Appearance: overweight Orientation/consciousness: patient oriented x3 Resp Effort & Inspection: normal respiratory effort Auscultation: clear to auscultation bilaterally Cardio Rate: regular rate Neuro General: patient oriented x3, gait normal and moves all extremities Psych Speech and movement: Slowed movement present (Neuro) Coding Level of Care Code TCM Mod MDM <= 7 Days Diagnoses Atrial fibrillation with RVR I48.91 Time Spent (min) 20 Assessment & Plan Assessment & Plan (1) Atrial fibrillation with RVR: Code(s): I48.91 - Unspecified atrial fibrillation Category: Medical Plan: Continue current medications including Eliquis and Sotalol; monitor for bradycardia or hypotension. Monitor symptoms: dizziness, chest discomfort, hypotension episodes. Educate patient on symptom monitoring (syncope, worsening dizziness, chest pain) and when to seek urgent care. Follow up with Cardiology as scheduled.
[2024-12-15 10:29] VITALS: BP 150/80; PULSE 88; TEMP 36.2; O2SAT 98; BMI 30.6
--- OUTSIDE RECORDS SUMMARY | 2024-12-15 12:02 | XMS_ITS | Clinical Summary ---
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 Name Role Phone Jeremy Smith Primary Care Provider [phone] Allergies Active Allergy Reactions Criticality Noted Date Comments Rivaroxaban 07/12/2024 Medications No known medications Encounters Date Type Department Care Team Description 11/07/2024 2:30 PM EDT Office Visit [facility] [address] [phone] Nick Pozo DPM Foreign body in right [...] Upcoming Encounters Date Type Department Care Team ([facility] st Contact Info) Description 02/06/2025 11:00 AM EST Office Visit [facility] [address] [phone] Nick Pozo DPM [address] [id number] Health Maintenance Due Date Last Done Comments [...] Insurance MEDICARE MEDICAID - [place] Care Teams Acid Plant Helper Relationship Specialty Start Date End Date Jeremy Smith PA [address] [place] [phone] PCP - General Physician Fire Services Plumber 07/25/24
== END 2024-12-15 10:53 | disposition home or self-care (01) ==
LOC: HO.HMCH 10:14
PROVIDERS: PCP Physician Assistant; Visit Provider Nurse Practitioner Family
DX: I48.91 Unspecified atrial fibrillation (principal)

== ENCOUNTER → 2024-12-15 10:13 | Outpatient (BNVA) | payer MEDICARE, MEDICAID, SELFPAY ==
[2023-05-04 15:23] VITALS: BP 104/68; BP 112/72; BMI 31.3
== END ==
PROVIDERS: PCP Physician Assistant; Visit Provider Nurse Practitioner Family
DX: Z09 Encounter for follow-up examination after completed treatment for conditions other than malignant neoplasm (principal); I48.91 Unspecified atrial fibrillation
CPT/HCPCS: 99495

== ENCOUNTER 2024-12-26 09:41 | Outpatient (AMB) | payer MEDICARE, MEDICAID, SELFPAY ==
[2023-05-04 15:23] VITALS: BP 104/68; BP 112/72; BMI 31.3
--- NOTE | 2024-12-26 09:53 | A.OFFVIS_ITS ---
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: No Accompanied by: Self / Same As Patient Allergies rivaroxaban (From XARELTO) Adverse Reaction (Intermediate, Verified 12/15/24 10:29) LEG EDEMA, RASH Medication List - Last Reconciled 12/26/24 by MAYA Hamlin acetaminophen (Tylenol Extra Strength) 500 mg PO Q6H PRN apixaban (Eliquis) 5 mg PO BID blood pressure test kit-large As directed ciclopirox 0.77% 1 appl topical BID PRN furosemide 40 mg PO DAILY leg brace (Knee Brace Large-XLarge) As directed montelukast 10 mg PO BEDTIME PRN pyridoxine (vitamin B6) 100 mg PO DAILY 90 days sacubitril-valsartan 24-26 mg (Entresto) 1 tab PO BID 90 days sotalol 160 mg PO BID tramadol 50 mg PO BID PRN 7 days HPI HPI ED follow up: Details: The patient is a 69-year-old female presenting for follow-up after a hospital admission for atrial fibrillation with rapid ventricular response (AFib RVR). During her hospitalization on 12/08/2024, she underwent cardioversion and her sotalol was increased from 120 mg BID to 160 mg BID. The patient has a history of paroxysmal atrial fibrillation, for which she has undergone two prior ablations, is on Sotalol for rhythm control and is on Eliquis for anticoagulation. She also has a history of non-ischemic cardiomyopathy with a biventricular ICD in place. Her current medications include Eliquis 5 mg BID, Lasix 40 mg daily, Entresto 24/26mg BID, and sotalol 160 mg BID, and she confirms adherence. The patient reports feeling tired but denies heart palpitations, chest pain, lightheadedness, or swelling in her legs. She reports being less active around the house and has had no bleeding problems while on Eliquis. She states she has an appointment with EP, Dr Chen in February. Recent labs from 12/10/2024 showed a potassium of 4.2, calcium of 9.2, and magnesium of 2.3. [facility] Medical History Heart failure with reduced ejection fraction Chronic radicular pain of lower back Chest pain Encounter for monitoring sotalol therapy Hypotension arterial Osteoporosis screening Transaminitis Biventricular ICD (implantable cardioverter-defibrillator) in place Nonischemic cardiomyopathy SVT (supraventricular tachycardia) PAF (paroxysmal atrial fibrillation) HLD (hyperlipidemia) HTN (hypertension) History of cardioversion Obesity (BMI 30-39.9) Graves' disease in remission Surgical History History of radiofrequency ablation procedure for cardiac arrhythmia History of cardiac defibrillator placement Hx of cardiac catheterization (~06/2017) Hx of tubal ligation Family History Father Stroke Hypertension Mother Hypertension Diabetes Daughter AVM (arteriovenous malformation) Son No problems noted. Sister No problems noted. Brother No problems noted. Brother No problems noted. Brother No problems noted. Brother No problems noted. Family/Other Pancreatic cancer Social History Household Members: Significant Other Housing: House Do you presently have visiting nurse or other home services: Yes Alcohol intake: never Comment: moderate risk Patient Tobacco Use Status: Never used Tobacco e-Cigarette/Vaping Use: Never Used Second Hand Smoke Exposure: No service: No Current occupational status: unemployed Cognitive needs: No Hearing needs: No Vision needs: Yes Female Reproductive History Menstrual Age of Menarche: 11 Review of Systems Const All systems reviewed & are unremarkable except as noted in HPI and below Denies daytime sleepiness, Denies difficulty sleeping, Reports fatigue, Denies snoring, Denies stops breathing during sleep and Denies weakness Card Denies chest pain, Denies rapid heart rate, Denies irregular heart rhythm, Denies claudication, Denies leg edema, Denies lightheadedness, Denies palpitations, Denies dyspnea, Denies dyspnea on exertion, Denies orthopnea, Denies paroxysmal nocturnal dyspnea and Denies slow heart rate Resp Denies cough, Denies dyspnea, Denies dyspnea on exertion and Denies snoring GI Reports no additional complaints, Denies hematochezia, Denies change in stool character and Denies dyspepsia Musc Denies abnormal gait, Denies muscle weakness and Denies numbness Neuro Denies abnormal gait, Denies numbness and Denies weakness Endo Reports fatigue and Denies palpitations Physical Exam Vital Signs: Last Vital Signs Pulse 73 12/26/24 09:54 BP 124/68 12/26/24 09:54 BMI result Body Mass Index 30.6 Const General: cooperative, healthy appearing, comfortable and no acute distress Orientation/consciousness: patient oriented x3 Neck Neck: Yes normal visual inspection Resp Effort & Inspection: normal respiratory effort Auscultation: clear to auscultation bilaterally, no crackles, no rales, no rhonchi and no wheezes Cardio Rate: regular rate Rhythm: regular rhythm Heart sounds: S1 normal heart sound present, S2 normal heart sound present, no gallops, no murmurs and no rubs Peripheral pulses: Peripheral pulses 2+ throughout Neuro General: patient oriented x3 Extrem General: Yes normal to inspection, No no pedal edema and No calf tenderness Psych Appearance: grossly normal Mental Status: mental status grossly normal Speech and movement: Normal speech and movement present Office Procedures EKG Details: Today, read by me, A/V paced rhythm, one a paced/ v sensed beat, rate 73, Qtc 495ms [id number], Complete Assessment & Plan Assessment & Plan (1) PAF (paroxysmal atrial fibrillation): Code(s): I48.0 - Paroxysmal atrial fibrillation Category: Medical Plan: History of paroxysmal atrial fibrillation with 2 prior ablations. She has been maintained on sotalol for rhythm control. She is on Eliquis for anticoagulation. Recently had symptomatic AFib RVR requiring admission, cardioversion and sotalol dose increase. EKG today showing A/V paced, rate 75. She has an upcoming appointment with EP to discuss repeat ablation. No med changes made at this time. (2) Nonischemic cardiomyopathy: Code(s): I42.8 - Other cardiomyopathies Category: Medical Plan: History of nonischemic cardiomyopathy. Most recent echo 12/27/2023 showing EF low normal 50-55% with grade 2 diastolic dysfunction, moderately dilated left atrium, mild MR, ascending aorta 3.7 cm. Prior EF had been as low as 35-40%, 09/2020. She does have a Bi V ICD in place. No signs of heart failure on examination. Continue Entresto for neurohormonal modulation. (3) Biventricular ICD (implantable cardioverter-defibrillator) in place: Code(s): Z95.810 - Presence of automatic (implantable) cardiac defibrillator Category: Medical Plan: Medtronic Bi V ICD in place. She has a remote monitoring in use. Plan for office interrogation next visit. (4) HTN (hypertension): Code(s): I10 - Essential (primary) hypertension Category: Medical Qualifiers: Hypertension type: essential hypertension Qualified Code(s): I10 - Essential (primary) hypertension Plan: Blood pressure goal less than 130/80. Well controlled at this time. No medication changes made. (5) Hospital discharge follow-up: Code(s): Z09 - Encounter for follow-up examination after completed treatment for conditions other than malignant neoplasm Category: Medical Plan: [facility] discharge, cardiology notes reviewed Plan I reviewed the patient's recent hospitalization for AFib with RVR and the subsequent management which included cardioversion and an increase in her sotalol dosage to 160 mg BID. We discussed that she has remained asymptomatic since the intervention. I noted that her blood pressure, heart rate, and EKG today are good. We discussed the upcoming electrophysiology consultation with Dr. Chen in February for consideration of another ablation. I have scheduled a three-month follow-up with Dr. Bruno and advised the patient to contact us sooner if she experiences any change in her symptoms. Medications: Changed From ciclopirox 0.77% 1 appl topical BID 4 weeks 30 grams 0RF B35.3 - Tinea pedis To ciclopirox 0.77% 1 appl topical BID PRN B35.3 - Tinea pedis From montelukast 10 mg PO BEDTIME 90 days 90 tabs 1RF J30.1 - Allergic rhinitis due to pollen To montelukast 10 mg PO BEDTIME PRN J30.1 - Allergic rhinitis due to pollen Patient Instructions: - Continue to take all of your medications as prescribed, including the new dose of Sotalol 160 mg twice a day. - Keep your appointment to see Dr. Chen on March 05 - Please let us know if you have any changes in how you feel, especially if you feel your rapid heartbeat again. Patient was informed and verbally consented to the use of an ambient scribe for clinic note documentation during this visit. Visit time spent on chart review, interview, assessment, orders, documentation. Coding Level of Care Code Est Pt Level 4 (16827) Complex EM visit Add On G2211 Diagnoses PAF (paroxysmal atrial fibrillation) I48.0 Nonischemic cardiomyopathy I42.8 Biventricular ICD (implantable cardioverter-defibrillator) in place Z95.810 Essential hypertension I10 Hypertension type: essential hypertension Hospital discharge follow-up Z09 CPT Codes EKG - CPT: 60331-[id number], Complete ([id number]) Time Spent (min) 28
[2024-12-26 09:54] VITALS: BP 124/68; PULSE 73; BMI 30.6
== END 2024-12-26 10:31 | disposition home or self-care (01) ==
LOC: HO.HCS 09:42
PROVIDERS: PCP Physician Assistant; Visit Provider Nurse Practitioner Family
DX: I48.0 Paroxysmal atrial fibrillation (principal); I42.8 Other cardiomyopathies; Z95.810 Presence of automatic (implantable) cardiac defibrillator; I10 Essential (primary) hypertension; Z09 Encounter for follow-up examination after completed treatment for conditions other than malignant neoplasm
CPT/HCPCS: 93010; 99214; G2211

== ENCOUNTER → 2024-12-26 09:41 | Outpatient (BNVA) | payer MEDICARE, MEDICAID, SELFPAY ==
[2023-05-04 15:23] VITALS: BP 104/68; BP 112/72; BMI 31.3
== END ==
PROVIDERS: PCP Physician Assistant; Visit Provider Nurse Practitioner Family
DX: Z09 Encounter for follow-up examination after completed treatment for conditions other than malignant neoplasm (principal); I48.0 Paroxysmal atrial fibrillation; I42.8 Other cardiomyopathies; I11.0 Hypertensive heart disease with heart failure; I50.20 Unspecified systolic (congestive) heart failure; I49.8 Other specified cardiac arrhythmias; Z95.810 Presence of automatic (implantable) cardiac defibrillator; Z79.01 Long term (current) use of anticoagulants
CPT/HCPCS: 93005; 99212

== ENCOUNTER → 2024-12-28 12:36 | Outpatient (BNV) | payer MEDICARE, MEDICAID, SELFPAY ==
[2023-05-04 15:23] VITALS: BP 104/68; BP 112/72; BMI 31.3
== END ==
PROVIDERS: PCP Physician Assistant
DX: Z45.02 Encounter for adjustment and management of automatic implantable cardiac defibrillator (principal)
CPT/HCPCS: 93297

== ENCOUNTER 2025-01-02 12:51 | Outpatient (AMB) | payer MEDICARE, MEDICAID, SELFPAY ==
[2023-05-04 15:23] VITALS: BP 104/68; BP 112/72; BMI 31.3
--- NOTE | 2025-01-02 12:58 | A.OFFVIS_ITS ---
Vital Signs 01/02/25 12:59 Height 5 ft 9 in Weight 208 lb BMI 30.7 BP 123/58 L Blood Pressure Location Lt brachial Position Sitting Pulse 82 Intake Visit Reasons: Follow up cologuard Intake Note: Patient follow up for Cologuard results Patient deniesa ny GI issues. Patient wanted you to explain her US for Kidney stones. 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 - Reports chronic constipation with infrequent bowel movements, she is using senna with mixed results. However, she only uses it when she becomes very constipated and I think she needs to take at least 1 pill every night to better regulate bowel motility. Descriptions include passage of hard, pellet-like stools, and occasional need for straining. The condition appears to be chronic with no specific onset. - Diagnosed with nephrolithiasis at an emergency visit?multiple small stones noted bilaterally without signs of hydronephrosis. She left the ER before they can give her results. She has been drinking lots of water, and it is possible that this left-sided abdominal pain is from renal colic, saw give her a trial of Flomax and have her take naproxen at bedtime since this is when she has the worse pain. - Relevant diagnostic results included normal chem profiles and no indication of blood or urinary infections during the recent emergency visit although gross hematuria was noted. Again I want her to take senna every night and will see how she responds to this. We will also see if these interventions help relieve the pain which could be multifactorial and related to renal colic as well. We are going to order another Cologuard for her colon cancer screening. Return office visit in 4 weeks Medications: New naproxen 250 mg PO BEDTIME 5 tabs 0RF 5 days tamsulosin (Flomax) 0.4 mg PO DAILY 30 caps 0RF N20.0 - Calculus of kidney, R10.32 - Left lower quadrant pain COLOGUARD RESULTS 11/08/2024 Cologuard was negative TODAY'S VISIT [facility] Medical History Heart failure with reduced ejection fraction Chronic radicular pain of lower back Chest pain Encounter for monitoring sotalol therapy Hypotension arterial Osteoporosis screening Transaminitis Biventricular ICD (implantable cardioverter-defibrillator) in place Nonischemic cardiomyopathy SVT (supraventricular tachycardia) PAF (paroxysmal atrial fibrillation) HLD (hyperlipidemia) HTN (hypertension) History of cardioversion Obesity (BMI 30-39.9) Graves' disease in remission Surgical History History of radiofrequency ablation procedure for cardiac arrhythmia History of cardiac defibrillator placement Hx of cardiac catheterization (~06/2017) Hx of tubal ligation Family History Father Stroke Hypertension Mother Hypertension Diabetes Daughter AVM (arteriovenous malformation) Son No problems noted. Sister No problems noted. Brother No problems noted. Brother No problems noted. Brother No problems noted. Brother No problems noted. Family/Other Pancreatic cancer Social History Household Members: Significant Other Housing: House Do you presently have visiting nurse or other home services: Yes Alcohol intake: never Comment: moderate risk Patient Tobacco Use Status: Never used Tobacco e-Cigarette/Vaping Use: Never Used Second Hand Smoke Exposure: No service: No Current occupational status: unemployed Cognitive needs: No Hearing needs: No Vision needs: Yes Female Reproductive History Menstrual Age of Menarche: 11 Review of Systems Const Denies fatigue, Denies fever(s), Denies night sweats, Denies poor appetite and Denies weight loss ENT Reports Normal hearing present, Denies dental pain, Denies dysphagia, Denies hearing loss, Denies mouth pain, Denies odynophagia, Denies throat swelling, Denies tongue swelling and Reports other (Dentition adequate) Card Reports chest pain and Reports lightheadedness Resp Reports no additional complaints GI Details: Denies abdominal pain, Denies melena, Denies bloating, Denies hematochezia, Denies constipation, Denies GI cramping, Denies dysphagia, Denies excessive flatus, Denies early satiety, Denies heartburn, Denies diarrhea, Denies nausea, Denies odynophagia, Denies vomiting and Denies hematemesis Skin/Breast Denies pruritus, Denies lesions, Denies rash and Denies jaundice Neuro Reports Normal hearing present and Denies Abnormal speech present Endo Denies fatigue Aller/Immun Denies throat swelling and Denies tongue swelling Physical Exam Vital Signs: Last Vital Signs Pulse 82 01/02/25 12:59 BP 123/58 L 01/02/25 12:59 BMI result Body Mass Index 30.7 Const General: cooperative, no acute distress, well developed and well groomed Nutritional Appearance: well nourished and obese Orientation/consciousness: oriented to person, oriented to place and oriented to time Limitations: No language barrier HEENT Head: Yes normocephalic and Yes atraumatic Eyes General: appearance normal, both eyes and all related structures Pupils: Equal, round and reactive pupils present Neck Neck: Yes normal visual inspection and Yes no lymphadenopathy Thyroid: Thyroid normal Resp Effort & Inspection: normal respiratory effort and able to speak in complete sentences Auscultation: clear to auscultation bilaterally Cardio Rate: regular rate Rhythm: regular rhythm Heart sounds: Normal, physiologic split S2 sound present Peripheral pulses: radial pulses present and posterior tibial pulses present GI Inspection: No distended, No Abdominal panniculus present and Yes obesity Palpation (GI): Soft to palpation, nontender, no guarding, not rigid and No hepatosplenomegaly present Percussion: Yes normal to percussion Auscultation: normal bowel sounds Rectal Exam - Female: deferred Skin General skin exam: no rashes or lesions noted, turgor normal, skin not dry, no jaundice, No spider nevi and no striae Rashes: no rashes Nails: normal Neuro General: oriented to person, oriented to place and oriented to time Cranial nerves: Yes Equal, round and reactive pupils present and Yes Normal hearing present Speech: No Abnormal speech present Extrem General: Yes normal to inspection, No clubbing, No cyanosis and No edema Psych Appearance: grossly normal and well kempt Mental Status: mental status grossly normal Speech and movement: Normal speech and movement present Affect: normal affect Attitude: cooperative Thought process: Normal thought process present and not confabulating Thought content: Normal thought content present Insight: Good insight present (Psych) Judgement: Good judgement present (Psych) Assessment & Plan Assessment & Plan (1) Constipation: Code(s): K59.00 - Constipation, unspecified Category: Medical Qualifiers: Constipation type: drug induced constipation Qualified Code(s): K59.03 - Drug induced constipation (2) Flank pain: Code(s): R10.9 - Unspecified abdominal pain Category: Medical (3) Colon cancer screening: Comment: Negative Cologuard 11/2024 repeat in 3 years; Negative Cologuard 11/2019 repeat in 3 years aeb Code(s): Z12.11 - Encounter for screening for malignant neoplasm of colon Category: Medical Plan I had wanted her to take the senna every night to avoid her abdominal pain but it appears her primary care provider discontinued it. Fortunately her abdominal pain seems to have ceased uncertain whether it is because she passed her multiple kidney stones or whether it was related to her cardiac condition. Subjective Patient presents for follow-up regarding constipation. She reports Senna was ineffective and she stopped it. She was hospitalized locally for a atrial fibrillation after being sent to the ED by cardiology due to very low blood pressure; she spent two days in the emergency department and two days inpatient. During hospitalization she received MiraLAX and other treatments and subsequently had a CT scan on December 10 reported to show no stones. Since discharge she has been taking warm lemon water before breakfast, which is effectively promoting bowel movements. She denies current abdominal pain. She reports cardioversion was performed and that ablation may be planned. She notes prior imaging in October showed multiple kidney stones; her urology appointments were repeatedly canceled and she now has an appointment scheduled in February. Objective - Cologuard colorectal cancer screening: negative. - CT scan from December 10 reviewed: no bladder or kidney stones. Assessment & Plan Constipation: Currently improved with non-pharmacologic regimen; no ongoing abdominal pain. - Continue warm lemon water before breakfast as tolerated. - No additional medications indicated at this time; follow up if symptoms recur or worsen. History of nephrolithiasis: Prior stones noted on imaging in October; December CT shows no stones. Discussed risk of future stone formation. - Encourage aggressive oral hydration (?drink and void regularly?). - Continue lemon or [place] water as tolerated, which may help reduce recurrence depending on stone type. Colorectal cancer screening: Cologuard negative. - Place on 3-year recall for repeat stool DNA test. Coding Level of Care Code Est Pt Level 3 (50025) Diagnoses Drug-induced constipation K59.03 Constipation type: drug induced constipation Flank pain R10.9 Colon cancer screening Z12.11
[2025-01-02 12:59] VITALS: BP 123/58; PULSE 82; BMI 30.7
--- OUTSIDE RECORDS SUMMARY | 2025-01-02 16:31 | XMS_ITS | Clinical Summary ---
Author Organization [address] [facility] Address [address] [place] [address] Phone Care Team Providers Care Local Area Network Administrator Name Role Phone Jeremy Smith Primary Care Provider Allergies Active Allergy Reactions Criticality Noted Date Comments Rivaroxaban 07/12/2024 Medications No known medications Encounters Date Type Department Care Team Description 11/07/2024 2:30 PM EDT Office Visit [facility] [address] [phone] Nick Pozo DPM Foreign body in right [...] Upcoming Encounters Date Type Department Care Team ([facility] st Contact Info) Description 02/06/2025 11:00 AM EST Office Visit [facility] [address] [phone] Nick Pozo DPM [address] [id number] Health Maintenance Due Date Last Done Comments [...] Insurance MEDICARE MEDICAID - [place] Care Teams Local Area Network Administrator Relationship Specialty Start Date End Date Jeremy Smith PA [address] [place] [phone] PCP - General Physician Fitness Instructor 07/25/24
== END 2025-01-02 13:30 | disposition home or self-care (01) ==
LOC: HO.HGI 12:53
PROVIDERS: PCP Physician Assistant; Visit Provider Nurse Practitioner
DX: K59.03 Drug induced constipation (principal); R10.9 Unspecified abdominal pain
CPT/HCPCS: 99213

== ENCOUNTER → 2025-01-02 12:51 | Outpatient (BNVA) | payer MEDICARE, MEDICAID, SELFPAY ==
[2023-05-04 15:23] VITALS: BP 104/68; BP 112/72; BMI 31.3
== END ==
PROVIDERS: PCP Physician Assistant; Visit Provider Nurse Practitioner
DX: K59.03 Drug induced constipation (principal); R10.32 Left lower quadrant pain; Z12.11 Encounter for screening for malignant neoplasm of colon
CPT/HCPCS: 99212

== ENCOUNTER 2025-01-20 10:25 | Inpatient (IN) | payer MEDICARE, MEDICAID, SELFPAY ==
[2023-05-04 15:23] VITALS: BP 104/68; BP 112/72; BMI 31.3
[2025-01-20] VITALS (14 sets, daily range): BP systolic 97–135; BP diastolic 47–79; PULSE 70–125; RESP 15–24; TEMP 36.6–36.8; O2SAT 95–100
--- NOTE | ~2025-01-20 | XR_ITS ---
CLINICAL HISTORY: chest pain 1 view chest x-ray. Comparison: CR/SR - XR CHEST 1 VIEW - 12/07/24 13:14 EDT Findings: Normal lung volumes. Lungs are clear. No pneumothorax or pleural effusion. Stable borderline cardiomegaly. Dual-chamber AICD. No passive venous congestion. No midline shift or tracheal deviation. No acute fracture. Impression: 1. No acute cardiopulmonary disease. This document has been electronically signed by: Godfrey Pacheco MD on 01/20/2025 12:22:56
--- NOTE | 2025-01-20 10:28 | ECG_ITS ---
Test Reason : CP Blood Pressure : */* mmHG Vent. Rate : 116 BPM Atrial Rate : * BPM P-R Int : * ms QRS Dur : 136 ms QT Int : 408 ms P-R-T Axes : * -64 110 degrees QTcB Int : 567 ms Atrial fibrillation with rapid ventricular response with frequent ventricular-paced complexes Left axis deviation Non-specific intra-ventricular conduction block Minimal voltage criteria for LVH, may be normal variant ( [place] product ) Cannot rule out Septal infarct , age undetermined Abnormal ECG When compared with ECG of 10-Dec-2024 11:01, Atrial fibrillation has replaced Atrial-paced rhythm Vent. rate has increased by 46 bpm Referred By: Generic ED Physician Electronically Signed By: KY HERNANDEZ MD
--- NOTE | 2025-01-20 11:04 | ED_ITS ---
HPI - Arrhythmia/Palpitations General Chief Complaint: Arrhythmia/Palpitations Stated Complaint: CP,AFIB 100-130,ASA GIVEN PER EMS Time Seen by Provider: 01/20/25 10:59 Source: patient, EMS, RN notes reviewed and old records reviewed Mode of arrival: EMS Limitations: no limitations History of Present Illness ED Provider: CONNIE Garcia HPI narrative: 69-year-old female with medical history of HFrEF, transaminitis, HTN, HLD, Graves disease, osteoporosis, GERD, fibromyalgia, depression, PAF, ICD on Eliquis presents to the ED due to palpitations. Patient explains [facility] Cardiology called her yesterday to alert her of arrhythmia with a rapid heart rate. Patient stated she was experiencing some ?chest discomfort? that started yesterday and was located in the mid chest and describes it as a ?burning discomfort? that lasted approximately 2 hours before resolving however palpitations persisted. Patient states she checked her blood pressure last night with a home BP cuff and got a low reading of 59/62. Patient states she felt tired and went to bed. Patient stated she was woken up this morning by her property assessment monitor which was alerting her that she had a rapid heart rate. Patient states she got out of bed and had an episode of dizziness while she was up getting ready however it lasted for just a few moments before resolving. Patient states she kept experiencing palpitations through this time. Patient reports she was able to take her morning medications. Upon arrival to the department, patient is endorsing lumbar back pain that is chronic for her and has not changed in quality or intensity. Patient was given 324 asa en route. Denies sick contacts, recent illness, recent travel, fevers, chills, chest pain, SOB, difficulty breathing, abdominal pain, nausea, vomiting, headaches, visual changes, diarrhea, urinary symptoms Related Data Home Medications ?Medication ?Instructions ?Recorded ?Confirmed acetaminophen 500 mg tablet 500 mg PO Q6H PRN Pain 01/20/25 (Tylenol Extra Strength) montelukast 10 mg tablet 10 mg PO BEDTIME PRN asthma 12/26/24 01/20/25 polyvinyl alcohol 1.4 % eye drops 1 drp ophthalmic (ey e) BID PRN Dry 01/20/25 01/20/25 (Artificial Tears (polyvinyl Eye(S) alcohol)) Previous Rx's ?Medication ?Instructions ?Recorded blood pressure test kit-[facility] #1 ea 08/14/21 leg brace (Knee Brace Large-XLarge) #1 ea 07/22/23 pyridoxine (vitamin B6) 100 mg 100 mg PO DAILY 90 days #90 tabs 05/08/24 tablet apixaban 5 mg tablet (Eliquis) 5 mg PO BID #180 tabs 0 08/01/24 furosemide 40 mg tablet 40 mg PO DAILY #90 tabs 07/10 06/02 sacubitril 24 mg-valsartan 26 mg 1 tab PO BID 90 days #180 tabs 01/08/25 tablet (Entresto) carvedilol 6.25 mg tablet 6.25 mg PO BID #180 tabs dofetilide 125 mcg capsule 125 mcg PO BID #180 caps Allergies Allergy/AdvReac Type Severity Reaction Status Date / Time rivaroxaban (From XARELTO) AdvReac Intermediate LEG EDEMA, Verified 01/20/25 10:51 RASH Review of Systems 2 Review of Systems: Yes all other systems are reviewed and are negative [facility] Past Medical History Attestation statement: The following information was validated with the patient. Source: old records reviewed and nursing notes reviewed Medical History Heart failure with reduced ejection fraction Chronic radicular pain of lower back Chest pain Encounter for monitoring sotalol therapy Hypotension arterial Osteoporosis screening Transaminitis Biventricular ICD (implantable cardioverter-defibrillator) in place Nonischemic cardiomyopathy SVT (supraventricular tachycardia) PAF (paroxysmal atrial fibrillation) HLD (hyperlipidemia) HTN (hypertension) History of cardioversion Obesity (BMI 30-39.9) Graves' disease in remission Surgical History History of radiofrequency ablation procedure for cardiac arrhythmia History of cardiac defibrillator placement Hx of cardiac catheterization (~06/2017) Hx of tubal ligation Family History Family History Father Stroke Hypertension Mother Hypertension Diabetes Daughter AVM (arteriovenous malformation) Son No problems noted. Sister No problems noted. Brother No problems noted. Brother No problems noted. Brother No problems noted. Brother No problems noted. Family/Other Pancreatic cancer Social History Social History Household Members: Spouse Housing: House Do you presently have visiting nurse or other home services: Yes (care worth 1x a month) Alcohol intake: never Comment: moderate risk Patient Tobacco Use Status: Never used Tobacco e-Cigarette/Vaping Use: Never Used Second Hand Smoke Exposure: No service: No Current occupational status: unemployed Cognitive needs: No Hearing needs: No Vision needs: Yes Physical Exam 2 Vital Signs: Vital Signs: Last Vital Signs Temp 98.0 F 01/24/25 11:02 Pulse 80 01/24/25 11:02 Resp 16 01/24/25 11:02 BP 119/68 01/24/25 11:02 Pulse Ox 96 01/24/25 11:02 O2 Del Method Room Air 01/24/25 11:02 O2 Flow Rate 5 01/20/25 14:10 Oxygen Flow Rate 0 01/20/25 14:14 BMI result Body Mass Index 30.0 GENERAL APPEARANCE: ?AxOx4, generally well-appearing, no acute distress. HEENT: ?NC, AT. MMM. EOMI, clear conjunctiva, oropharynx clear. NECK: ?Supple without lymphadenopathy.? No stiffness or restricted ROM. HEART:? Irregular, tachycardic rate and rhythm, no m/r/g LUNGS:? CTAB, moving air well. No crackles or wheezes are heard. ABDOMEN: ?Soft, nontender, nondistended with good bowel sounds heard. BACK: No CVAT, no obvious deformity. EXTREMITIES: ?Without cyanosis, clubbing or edema. NEUROLOGICAL: ?Grossly nonfocal. Alert and oriented, moving all 4 extremities. Observed to ambulate with normal gait. Skin: Warm and dry without any rash Medications Administered Discontinued Medications Generic Name Dose Route Start Last Admin Trade Name Freq PRN Reason Stop Dose Admin Acetaminophen 650 mg 01/20/25 15:04 01/22/25 21:13 Acetaminophen 325 Mg Tablet PO 650 mg Q6H PRN Administration Pain, Mild 1-3,fever,headache Apixaban 5 mg 01/20/25 21:00 01/24/25 07:43 Apixaban 5 Mg Tablet PO 5 mg BID ANTHONY Administration Carvedilol 3.125 mg 01/21/25 11:15 01/23/25 08:14 Carvedilol 3.125 Mg Tablet PO 3.125 mg BID ANTHONY Administration Protocol Carvedilol 6.25 mg 01/23/25 21:00 01/24/25 07:43 Carvedilol 6.25 Mg Tablet PO 6.25 mg BID ANTHONY Administration Protocol Dofetilide 250 mcg 01/20/25 21:00 01/22/25 08:05 Dofetilide 125 Mcg Capsule PO 250 mcg BID ANTHONY Administration Dofetilide 125 mcg 01/22/25 21:00 01/24/25 07:44 Dofetilide 125 Mcg Capsule PO 125 mcg BID ANTHONY Administration Furosemide 40 mg 01/21/25 09:00 01/24/25 07:43 Furosemide 40 Mg Tablet PO 40 mg DAILY ANTHONY Administration Protocol Lactated Ringer's 500 mls @ 500 mls/hr 01/20/25 12:48 01/20/25 14:20 Lr IV 01/20/25 13:47 Infused .Q1H ONE Infusion Potassium Chloride 20 meq 01/22/25 13:26 01/22/25 13:34 Potassium Chloride Er 20 Meq Tab.Er.Prt PO 01/22/25 13:27 20 meq ONCE ONE Administration Potassium Chloride 20 meq 01/23/25 07:57 01/23/25 08:14 Potassium Chloride Packet 20 Meq Packet PO 01/23/25 07:58 20 meq ONCE ONE Administration Propofol 75 mg 01/20/25 14:28 01/20/25 14:02 Propofol 200 Mg/20 Ml Vial IVPUSH 01/20/25 14:29 75 mg ONCE ONE Administration Pyridoxine HCl 100 mg 01/21/25 09:00 01/24/25 07:43 Pyridoxine Hcl (Vitamin B6) 50 Mg Tablet PO 100 mg DAILY ANTHONY Administration Sacubitril/Valsartan 1 tab 01/20/25 21:00 01/24/25 07:43 Sacubitril/Valsartan 1 Tab Tablet PO 1 tab BID ANTHONY Administration Protocol Sodium Chloride 3 ml 01/20/25 16:00 01/24/25 07:45 0.9 % Sodium Chloride Flush 3 Ml Syringe IVFLUSH 3 ml QSHIFT ANTHONY Administration Medical Decision Making Medical Decision Making MDM Narrative: 69-year-old female with medical history of HFrEF, transaminitis, HTN, HLD, Graves disease, osteoporosis, GERD, fibromyalgia, depression, PAF, ICD on Eliquis presents to the ED due to palpitations that began yesterday. Patient was called by [facility] cardiology office yesterday and was told she was in afib with rapid heart rate and was encouraged to come to the ED. Patient had been fatigued, with a center, burning chest discomfort that lasted a few hours yesterday evening before resolving. Patient checked her BP at home and got a reading of 59/62 and went to bed. Patient woke up this morning with her property assessment monitor alerting her that she had rapid heart rate, and had an episode of dizziness that lasted for a few minutes while she was getting ready before resolving. Patient was given 324 ASA in route by EMS. Patient arrives in the emergency department with palpitations but no other physical complaints. Patient recently underwent cardioversion on 12/10 and was converted to normal sinus rhythm. On chart review patient with echocardiogram on 12/27/2023 with ejection fraction of 50-55% and suggested grade 2 diastolic dysfunction. EKG reveals AFib with rapid RVR with a ventricular rate of 116 beats per minute, left axis deviation, initial troponin WNL at 6.1, patients chest discomfort started yesterday, ACS less likely. Labs without leukocytosis/leukopenia, no left shift, no evidence of anemia, elevated BNP of 3,101.9, TSH WNL. UA without evidence of blood, trace leukocyte esterase, no urine bacteria. Patient without urinary symptoms, no indication for abx at this time. If culture comes back for specific organism will start abx. Patient with 2 days of chest discomfort, palpitations and fatigue was found to be in afib with RVR going between 96BPM to 120'sBPM. Patient took her cardiac medications today. I reached out to Dr. Bruno who recommended cardioversion for rate control and came down to the department for further evaluation of the patient. I spoke with my attending physician Dr. Khan who was included in the care of the patient. The patient was prepared and educated on the procedure and gave consent for cardioversion. Patient was medicated by my attending physician Dr. Khan who gave IV push of 75mg propofol for sedation. Dr. Bruno charged the machine to 200J and performed cardioversion twice. Second time put patient back into NSR with HR of 70. Patient tolerated the procedure well. Patient will be admitted to medicine with recommendation of Dr. Bruno to start Tikosyn for rate control as patient has failed other rate control medications. These findings were discussed with the patient. She is in agreement with the plan. Differential Diagnosis Differential Diagnoses: The differential diagnosis associated with the presentation includes ACS Dysrhythmia AFib with RVR Electrolyte abnormality Admission/Observation Consideration of admission/observation: Escalation of care including admission/observation considered Consult Healthcare Provider Management of the patient was discussed with: Hospitalist (CONNIE Bonilla ) and Order Dispatcher Chief (Cardiology Dr. Bruno) Lab Data MDM Lab Attestation statement: I reviewed the patient's lab results. 01/20/25 11:11 01/23/25 06:10 Labs: Lab Results 01/20/25 01/20/25 01/20/25 Range/Units 11:11 11:12 11:57 WBC 5.4 (4.8-10.8) X10*3/uL RBC 4.60 (4.20-5.50) X10*6/uL Hgb 13.2 (12.0-16.0) g/dl Hct 39.8 (37.0-47.0) % MCV 86.5 (80.0-98.0) fL MCH 28.7 (27.0-33.0) pg MCHC 33.2 (31.0-35.0) g/dl RDW 14.0 (11.0-16.0) % Plt Count 215 (160-400) X10*3/uL MPV 10.5 (9.4-12.3) fL Immature Gran % (Auto) 0.2 (0.0-0.4) % Neut % (Auto) 56.6 (45-73) % Lymph % (Auto) 31.7 (20-40) % [place] % (Auto) 8.2 (2-11) % Eos % (Auto) 2.2 (0-4) % Baso % (Auto) 1.1 (0-2) % Lymph # (Auto) 1.7 (1.2-4.9) X10*3/uL [place] # (Auto) 0.4 (0.1-1.2) X10*3/uL Eos # (Auto) 0.1 (0.0-0.4) X10*3/uL Baso # (Auto) 0.1 (0.0-0.2) X10*3/uL Abs Immat Gran (auto) 0.01 (0.00-0.03) X10*3/uL Absolute Neuts (auto) 3.1 (2.0-8.3) x10*3/uL Absolute Nucleated RBC 0.000 (0.0-0.012) X10*3/uL Nucleated RBC % (auto) 0.0 (0.0-0.2) /100WBC PT 17.7 H (11.2-13.5) SEC INR 1.5 H (0.9-1.1) Sodium 143 (135-145) mmol/L Potassium 3.7 (3.3-5.1) mmol/L Chloride 106 (96-108) mmol/L Carbon Dioxide 28 (22-29) mmol/L Anion Gap 13 (12-20) BUN 12 (9-16) mg/dL Creatinine 0.72 (0.5-1.4) mg/dL Estim Creat Clear Calc 90.6 Estimated GFR > 60 Random Glucose 125 H (60-115) mg/dL Calcium 9.2 (8.4-10.2) mg/dL Magnesium 2.1 (1.6-2.6) mg/dL Total Bilirubin 1.1 H (0.0-1.0) mg/dL AST 25 (5-31) U/L ALT 25 (0-31) U/L Alkaline Phosphatase 116 (39-117) U/L Troponin I High Sens 6.1 (<3.5-17.0) ng/L NT-Pro-B Natriuret Pep 3101.9 H (<300) pg/mL Total Protein 7.1 (6.5-8.0) g/dL Albumin 4.5 (3.5-5.0) g/dL TSH 1.14 (0.32-4.0) uIU/mL Urine Color Yellow Urine Appearance Clear Urine pH 7.5 (5.0-9.0) Ur Specific [place] <= 1.005 (1.005-1.025) Urine Protein Negative (Neg-Trace) mg/dL Urine Glucose (UA) Negative (Negative) mg/dL Urine Ketones Negative (Negative) mg/dL Urine Blood Negative (Negative) Urine Nitrite Negative (Negative) Ur Leukocyte Esterase Trace H (Negative) Urine RBC 0-2 (0-2) /HPF Urine WBC 0-5 (0-5) /HPF Ur Squamous Epith Cells 0-2 (0-2) /HPF Urine Bacteria None Seen (None Seen) Hyaline Casts 0-2 (0-2) /LPF Independent Interpretation I performed an independent interpretation of an: EKG and Plain X-Ray Interpretation: I personally interpreted the EKG which reveals atrial fibrillation with rapid ventricular response with a ventricular rate of 116 beats per minute, left axis deviation, no significant ST-elevation/depression Vent. Rate : 116 BPM Atrial Rate : * BPM P-R Int : * ms QRS Dur : 136 ms QT Int : 408 ms P-R-T Axes : * -64 110 degrees QTcB Int : 567 ms Atrial fibrillation with rapid ventricular response with frequent ventricular-paced complexes and with premature ventricular or aberrantly conducted complexes Left axis deviation Non-specific intra-ventricular conduction block Minimal voltage criteria for LVH, may be normal variant ( Silvano product ) Cannot rule out Septal infarct , age undetermined Abnormal ECG When compared with ECG of 10-Dec-2024 11:01, Electronic ventricular pacemaker has replaced Electronic atrial pacemaker Vent. rate has increased by 46 bpm I personally interpreted the CXR which reveals mild cardiomegaly, no pulmonary edema, pleural effusion, pneumothorax, infiltrates or consolidations, I agree with the radiologist's interpretation Radiology Impression Discussion of test interpretation with radiology: I have reviewed the radiologist's reading. Radiologist Impression: CXR Findings: Normal lung volumes. Lungs are clear. No pneumothorax or pleural effusion. Stable borderline cardiomegaly. Dual-chamber AICD. No passive venous congestion. No midline shift or tracheal deviation. No acute fracture. Impression: 1. No acute cardiopulmonary disease. This document has been electronically signed by: Godfrey Pacheco MD on 01/20/2025 12:22:56 Dictated By: Godfrey Pacheco MD Signed By: <Electronically signed by Godfrey Pacheco MD in OV> 01/20/25 1223 Independent Historian Clinical information obtained from an independent historian. History obtained from or confirmed by: EMS External Record Review External record reviewed: Inpatient record, Office record, Outpatient record and Prior outpatient labs Chronic Conditions Patient?s care impacted by: Hypertension and Other (HFrEF, transaminitis, HLD, Graves disease, osteoporosis, GERD, fibromyalgia, depression, PAF, ICD on Eliquis) Discharge Plan Discharge Clinical Impression: Atrial fibrillation, CHF exacerbation Patient Disposition: Admitted As Inpatient Interventions: Admission Worksheet (ED) Last Done: 01/21/25 07:18 Discharge Date/Time: 01/21/25 15:16
[2025-01-20 11:15] LABS: MANUAL DIFF FLAG NO
[2025-01-20 11:19] LABS: Hematocrit 39.8 % (37.0-47.0); Hemoglobin 13.2 g/dl (12.0-16.0); Imm Gran Abs Auto 0.01 X10*3/uL (0.00-0.03); Imm Gran Pct Auto 0.2 % (0.0-0.4); Lymphocytes Absolute Auto 1.7 X10*3/uL (1.2-4.9); Mean Corpuscular HGB Conc 33.2 g/dl (31.0-35.0); Mean Corpuscular Hemoglobin 28.7 pg (27.0-33.0); Mean Corpuscular Volume 86.5 fL (80.0-98.0); NRBC Abs Auto 0.000 X10*3/uL (0.0-0.012); NRBC Pct Auto 0.0 /100WBC (0.0-0.2); Platelet Count 215 X10*3/uL (160-400); Red Blood Count 4.60 X10*6/uL (4.20-5.50); White Blood Count 5.4 X10*3/uL (4.8-10.8)
[2025-01-20 11:24] LABS: INTERNATIONAL NORM RATIO 1.5 (0.9-1.1); Prothrombin Time 17.7 SEC (11.2-13.5)
[2025-01-20 11:36] LABS: Troponin-I High Sensitivity 6.1 ng/L (<3.5-17.0)
--- OUTSIDE RECORDS SUMMARY | 2025-01-20 11:48 | XMS_ITS | Clinical Summary ---
Author Organization [address] [facility] Address [address] [place] [address] Phone Care Team Providers Care Application Support Manager Name Role Phone Jeremy Smith Primary Care Provider Allergies Active Allergy Reactions Criticality Noted Date Comments Rivaroxaban 07/12/2024 Medications No known medications Encounters Date Type Department Care Team Description 11/07/2024 2:30 PM EDT Office Visit [facility] [address] [phone] Nick Pozo DPM Foreign body in right [...] Upcoming Encounters Date Type Department Care Team ([facility] st Contact Info) Description 02/06/2025 11:00 AM EST Office Visit [facility] [address] [phone] Nick Pozo DPM [address] [id number] Health Maintenance Due Date Last Done Comments [...] Insurance MEDICARE MEDICAID - [place] Care Teams Application Support Manager Relationship Specialty Start Date End Date Jeremy Smith PA [address] [place] [phone] PCP - General Physician Anesthesiology Medical Doctor 07/25/24
[2025-01-20 12:02] LABS: Appearance Urine Clear; Glucose Urine UA Negative (Negative); PH 7.5 (5.0-9.0); Specific Gravity - Urine <= 1.005 (1.005-1.025); UMIC TRIGGER UACC YES
[2025-01-20 12:42] LABS: Alanine Aminotransferase 25 U/L (0-31); Albumin Level 4.5 g/dL (3.5-5.0); Alkaline Phosphatase 116 U/L (39-117); Anion Gap 13 (12-20); Aspartate Amino Transferase 25 U/L (5-31); Blood Urea Nitrogen 12 mg/dL (9-16); Calcium 9.2 mg/dL (8.4-10.2); Carbon Dioxide 28 mmol/L (22-29); Chloride 106 mmol/L (96-108); Creatinine Clr Calc Pharmacy 90.6; Estimated Glomerular Filt Rate > 60; Magnesium 2.1 mg/dL (1.6-2.6); Potassium 3.7 mmol/L (3.3-5.1); Sodium 143 mmol/L (135-145); Total Protein 7.1 g/dL (6.5-8.0)
[2025-01-20] MEDS: Lactated Ringers 500 ML IV (12:58)
--- NOTE | 2025-01-20 14:17 | PC.NURSE ---
cardioversion: Dr. Bruno at bedside for cardioversion with Dr. Khan, Eneida RT, Lima Huddleston RN, Davis CALERO. 2x shock at 200J converted to sinus with pacemaker after second shock. Pt drowsy after, responds to name, sleepy. VSS
--- NOTE | 2025-01-20 14:29 | PC.NURSE ---
pt alert, oriented. follows commands well. talking to her cousin on the phone. HR 70
--- NOTE | 2025-01-20 15:06 | P.HPHOSP_ITS ---
History of Present Illness Date of Service: 01/20/25 Attending physician on admission: Rio Phillips Chief Complaint: sob This is a 69-year-old female with a history of HFrEF, pAF on Eliquis, SVT, biventricular ICD who presented to the emergency department due to fatigue. The cardiology office got an alert that the patient went into atrial fibrillation yesterday, she was called and reported felling ok. Today she began feeling tired, with dizziness and racing heart. She presented to the emergency department and was found to be in AFib with rapid ventricular response. Blood pressure was low and the patient remained symptomatic therefore underwent synchronized cardioversion in the emergency department. Cardioversion was successful and patient converted back to normal sinus rhythm. Blood pressure and symptoms have improved. patient took her dose of sotalol this morning and will be admitted for monitored conversion from sotalol to tikosyn. Review of Systems 2 Review of Systems: Yes all other systems are reviewed and are negative Constitutional: Constitutional: Denies chills and Denies fever(s) Cardiovascular: Cardiovascular: Denies chest pain and Reports palpitations Gastrointestinal: Gastrointestinal: Denies abdominal pain, Denies nausea and Denies vomiting Endocrine: Endocrine: Reports palpitations [facility] Medical History Heart failure with reduced ejection fraction Chronic radicular pain of lower back Chest pain Encounter for monitoring sotalol therapy Hypotension arterial Osteoporosis screening Transaminitis Biventricular ICD (implantable cardioverter-defibrillator) in place Nonischemic cardiomyopathy SVT (supraventricular tachycardia) PAF (paroxysmal atrial fibrillation) HLD (hyperlipidemia) HTN (hypertension) History of cardioversion Obesity (BMI 30-39.9) Graves' disease in remission Family History Father Stroke Hypertension Mother Hypertension Diabetes Daughter AVM (arteriovenous malformation) Son No problems noted. Sister No problems noted. Brother No problems noted. Brother No problems noted. Brother No problems noted. Brother No problems noted. Family/Other Pancreatic cancer Surgical History History of radiofrequency ablation procedure for cardiac arrhythmia History of cardiac defibrillator placement Hx of cardiac catheterization (~06/2017) Hx of tubal ligation Social History Household Members: Significant Other Housing: House Do you presently have visiting nurse or other home services: Yes Alcohol intake: never Comment: moderate risk Patient Tobacco Use Status: Never used Tobacco Smoked in Last 30 Days: No e-Cigarette/Vaping Use: Never Used Second Hand Smoke Exposure: No Use of substances other than those prescribed or required for medical reasons: No Advance Directives: No Advance Directives Information Provided: No Nutrition Risks: No Nutritional Risk service: No Current occupational status: unemployed Cognitive needs: No Hearing needs: No Vision needs: Yes Meds Allergies Allergy/AdvReac Type Severity Reaction Status Date / Time rivaroxaban (From XARELTO) AdvReac Intermediate LEG EDEMA, Verified 01/20/25 10:51 RASH Home Medications ?Medication ?Instructions ?Recorded ?Confirmed ?Last Taken ?Type acetaminophen 500 mg tablet 500 mg PO Q6H PRN Pain 01/20/25 Unknown History (Tylenol Extra Strength) montelukast 10 mg tablet 10 mg PO BEDTIME PRN asthma 12/26/24 01/20/25 Unknown History polyvinyl alcohol 1.4 % eye drops 1 drp ophthalmic (ey e) BID PRN Dry 01/20/25 01/20/25 Unknown History (Artificial Tears (polyvinyl Eye(S) alcohol)) sotalol 80 mg tablet 160 mg PO BID 01/20/2501/2001/20/25 History Physical Exam 2 Vital Signs and Narrative: Vital Signs: Last Vital Signs Temp 98.2 F 01/20/25 14:46 Pulse 70 01/20/25 14:46 Resp 20 01/20/25 14:46 BP 132/60 01/20/25 14:46 Pulse Ox 100 01/20/25 14:46 O2 Del Method Room Air 01/20/25 14:19 O2 Flow Rate 5 01/20/25 14:10 Oxygen Flow Rate 0 01/20/25 14:14 BMI result Body Mass Index 30.0 Const: General: cooperative, comfortable, alert and awake Nutritional Appearance: overweight Orientation/consciousness: patient oriented x3 Resp: Effort & Inspection: normal respiratory effort, able to speak in complete sentences, no respiratory distress and no use of accessory muscles A uscultation: clear to auscultation bilaterally Cardio: Rate: regular rate GI: Inspection: No distended Palpation (GI): Soft to palpation Neuro: General: patient oriented x3, moves all extremities and CN's II-XI intact bilaterally Results Labs 01/20/25 11:11 01/20/25 11:11 Labs: Laboratory Results - last 24 hr 01/20/25 01/20/25 01/20/25 11:11 11:12 11:57 MCV 86.5 MCH 28.7 MCHC 33.2 RDW 14.0 Plt Count 215 MPV 10.5 Immature Gran % (Auto) 0.2 Neut % (Auto) 56.6 Lymph % (Auto) 31.7 [place] % (Auto) 8.2 Eos % (Auto) 2.2 Baso % (Auto) 1.1 Lymph # (Auto) 1.7 [place] # (Auto) 0.4 Eos # (Auto) 0.1 Baso # (Auto) 0.1 Abs Immat Gran (auto) 0.01 Absolute Neuts (auto) 3.1 Absolute Nucleated RBC 0.000 Nucleated RBC % (auto) 0.0 PT 17.7 H INR 1.5 H Anion Gap 13 Estim Creat Clear Calc 90.6 Estimated GFR > 60 Random Glucose 125 H Calcium 9.2 Magnesium 2.1 Total Bilirubin 1.1 H AST 25 ALT 25 Alkaline Phosphatase 116 Troponin I High Sens 6.1 NT-Pro-B Natriuret Pep 3101.9 H Total Protein 7.1 Albumin 4.5 TSH 1.14 Urine Color Yellow Urine Appearance Clear Urine pH 7.5 Ur Specific [place] <= 1.005 Urine Protein Negative Urine Glucose (UA) Negative Urine Ketones Negative Urine Blood Negative Urine Nitrite Negative Ur Leukocyte Esterase Trace H Urine RBC 0-2 Urine WBC 0-5 Ur Squamous Epith Cells 0-2 Urine Bacteria None Seen Hyaline Casts 0-2 Assessment and Plan (1) Atrial fibrillation with RVR: Status: Acute Plan This is a 69-year-old female with a history of paf on Eliquis s/p CV and ablation x2 , HFrEF, AICD who presented with dizziness and racing heart found to be in afib with RVR with, unstable with low bp requiring cardioversion in the ED. Atrial fibrillation with rapid ventricular response s/p successfull CV in ED stop sotalol plan to start tikosyn this evening. follow tikosyn protocol continue anticoagulation with Eliquis HFrEF not in overt HF at this time continue baseline lasix, Entresto DVT prophylaxis-Eliquis Code status-full code Patient likely to require 2 midnight stay in the hospital for management atrial fibrillation with rapid ventricular response requiring specialist evaluation, antiarrhythmic medication requiring close cardiac monitoring and frequent EKGs which can not be done in a lesser acute setting. Quality Stroke Does the patient have a stroke diagnosis?: No VTE Prior VTE?: No VTE Risk Level:: Medical - moderate - high VTE Device Contraindication: Treatment Not Indicated VTE Drug Contraindication: N/A - Med Ordered
--- NOTE | 2025-01-20 15:53 | PHA.MEDREC ---
Pharmacy Consult ? Medication Reconciliation Pharmacy has completed the medication reconciliation. Spoke to patient at bedside, confirmed she takes 160mg of her sotalol, and that she did not start her tamsulosin
[2025-01-20 16:42] LABS: Glucose, Whole Blood 86 mg/dL (60-115)
[2025-01-20] MEDS: 0.9 % Sodium Chloride Flush 3 ML SYRINGE IVFLUSH (18:20)
--- NOTE | 2025-01-20 21:00 | ECG_ITS ---
Test Reason : ADMIT Blood Pressure : */* mmHG Vent. Rate : 70 BPM Atrial Rate : 70 BPM P-R Int : 190 ms QRS Dur : 120 ms QT Int : 468 ms P-R-T Axes : 3 -82 72 degrees QTcB Int : 505 ms AV dual-paced rhythm with occasional ventricular-paced complexes Abnormal ECG When compared with ECG of 20-Jan-2025 16:28, Atrial-paced rhythm has replaced Normal sinus rhythm Referred By: Rio Phillips Electronically Signed By: KY HERNANDEZ MD
--- NOTE | 2025-01-20 21:00 | ECG_ITS ---
Test Reason : CP Blood Pressure : */* mmHG Vent. Rate : 69 BPM Atrial Rate : 69 BPM P-R Int : 148 ms QRS Dur : 148 ms QT Int : 524 ms P-R-T Axes : * 158 -18 degrees QTcB Int : 561 ms Atrial-sensed ventricular-paced rhythm with Fusion complexes Abnormal ECG When compared with ECG of 20-Jan-2025 10:37, Normal sinus rhythm has replaced Atrial fibrillation with rapid ventricular response Vent. rate has decreased by 47 bpm Referred By: Keiko Bonilla Electronically Signed By: KY HERNANDEZ MD
--- NOTE | 2025-01-20 21:07 | PC.NURSE ---
Per Dr Anne we will hold the Tikosyn as pt Q is prolonged on EKG.
[2025-01-20] MEDS: Sacubitril/Valsartan 24/26 1 TAB TABLET PO (22:19)
--- NOTE | 2025-01-20 22:20 | PC.NURSE ---
pt medicated per MAR.
[2025-01-21] VITALS (10 sets, daily range): BP systolic 131–148; BP diastolic 57–73; PULSE 71–83; RESP 14–21; TEMP 36.4–36.7; O2SAT 94–98; BMI 29.2
[2025-01-21 05:10] LABS: Anion Gap 13 (12-20); Blood Urea Nitrogen 20 mg/dL (9-16); Calcium 9.1 mg/dL (8.4-10.2); Carbon Dioxide 28 mmol/L (22-29); Chloride 109 mmol/L (96-108); Creatinine Clr Calc Pharmacy 97.4; Estimated Glomerular Filt Rate > 60; Magnesium 2.2 mg/dL (1.6-2.6); Potassium 4.2 mmol/L (3.3-5.1); Sodium 146 mmol/L (135-145)
--- NOTE | 2025-01-21 06:32 | PC.NURSE ---
medication in pt specific bin: Visine for pt in pt specific bin
--- NOTE | 2025-01-21 08:45 | ECG_ITS ---
Test Reason : REPEAT Blood Pressure : */* mmHG Vent. Rate : 73 BPM Atrial Rate : 73 BPM P-R Int : 198 ms QRS Dur : 96 ms QT Int : 426 ms P-R-T Axes : 80 -80 70 degrees QTcB Int : 469 ms Atrial-sensed ventricular-paced rhythm with frequent AV dual-paced complexes Abnormal ECG When compared with ECG of 20-Jan-2025 20:43, Vent. rate has increased by 3 bpm Referred By: Rio Phillips Electronically Signed By: KY HERNANDEZ MD
--- NOTE | 2025-01-21 09:12 | PC.NURSE ---
Office Technologist at bedside reviewed ekg stating that tikosin should be given, hospitalist aware
--- NOTE | 2025-01-21 09:40 | HE.PHANOTE ---
RE: FETILTALISHA Spoke to Dr. Phillips who said Dr. Bruno just told me, ok to start please .
--- NOTE | 2025-01-21 09:59 | MHC.CM.PN ---
IMM 01/21/25, Pt. lives with her , he is her TELEX OPERATOR, she has a nurse and continuous pillowcase cutter through [facility]. for DME, she uses a cane and a bath chair. PCP confirmed: GALILEA Jean. Family to transport home at DC, DCP:home, self care, CM to follow for DC needs.
[2025-01-21] MEDS: 0.9 % Sodium Chloride Flush 3 ML SYRINGE IVFLUSH ×2 (10:08→16:52)
[2025-01-21] MEDS: Sacubitril/Valsartan 24/26 1 TAB TABLET PO ×2 (10:29→20:20)
--- NOTE | 2025-01-21 11:00 | P.CONCA_ITS ---
History of Present Illness History of Present Illness Date of Service: 01/21/25 Requesting physician: Keiko Bonilla Consult reason: atrial fibrillation Chief complaint: AFIB RVR Narrative: I was consulted to see Iliana in cardiology consultation today for recurrent atrial fibrillation highly symptomatic. Patient is well known to me with prior history of heart failure with reduced ejection fraction, nonischemic cardiomyopathy, recurrent atrial fibrillation difficult control with poor amiodarone tolerance, biventricular ICD presented to the hospital with recurrent atrial fibrillation. Be did receive and Wednesday on the patient that she was in recurrent atrial fibrillation and we spoke to her. She is not having significant symptoms at that point time. She then decided to just be at home. However she presented to hospital on Wednesday not feeling well lightheaded and with palpitation chest pain. When she came in the hospital she was noted to have lowish blood pressure with rapid atrial fibrillation rapid ventricular response. Given limited choices of options including recent onset recurrent persistent atrial fibrillation and patient being on oral anticoagulation religiously we pursued with synchronized cardioversion in the emergency room. She responded to the same. She is scheduled to see electrophysiology outpatient for repeat ablation although has a apartment in late February. Patient cardioverted successfully. We had held the sotalol and she did not receive her replacement Tikosyn yesterday because of some confusion about QT interval. Her QT interval is mildly prolonged although also has underlying prolonged QRS complex. We discussed about this morning with the nursing staff any D and to give her Tikosyn 250 mcg this morning and follow her EKGs. She does have a defibrillator and has been continuously monitored and heart rate is kept at 70 beats per minute and likelihood of polymorphic ventricular tachycardia is low. Review of Systems 2 Constitutional: Constitutional: Reports no additional constitutional complaints Cardiovascular: Cardiovascular: Reports chest pain, Reports rapid heart rate, Denies leg edema, Reports lightheadedness, Denies Loss of Consciousness, Reports palpitations, Reports dyspnea and Denies orthopnea Respiratory: Respiratory: Reports no additional respiratory complaints and Reports dyspnea Gastrointestinal: Gastrointestinal: Reports no additional gastrointestinal complaints Integumentary/Breasts: Skin/Breast: Reports system reviewed and no additional complaints, except as docu Neurologic: Reports system reviewed and no additional complaints, except as documented Endocrine: Endocrine: Reports palpitations PMFSH Past Medical History Medical History Heart failure with reduced ejection fraction Chronic radicular pain of lower back Chest pain Encounter for monitoring sotalol therapy Hypotension arterial Osteoporosis screening Transaminitis Biventricular ICD (implantable cardioverter-defibrillator) in place Nonischemic cardiomyopathy SVT (supraventricular tachycardia) PAF (paroxysmal atrial fibrillation) HLD (hyperlipidemia) HTN (hypertension) History of cardioversion Obesity (BMI 30-39.9) Graves' disease in remission Family History Family History Father Stroke Hypertension Mother Hypertension Diabetes Daughter AVM (arteriovenous malformation) Son No problems noted. Sister No problems noted. Brother No problems noted. Brother No problems noted. Brother No problems noted. Brother No problems noted. Family/Other Pancreatic cancer Surgical History Surgical History History of radiofrequency ablation procedure for cardiac arrhythmia History of cardiac defibrillator placement Hx of cardiac catheterization (~06/2017) Hx of tubal ligation Social History Social History Household Members: Significant Other Housing: House Do you presently have visiting nurse or other home services: Yes Alcohol intake: never Comment: moderate risk Patient Tobacco Use Status: Never used Tobacco Smoked in Last 30 Days: No e-Cigarette/Vaping Use: Never Used Second Hand Smoke Exposure: No Use of substances other than those prescribed or required for medical reasons: No Advance Directives: No Advance Directives Information Provided: No Nutrition Risks: No Nutritional Risk service: No Current occupational status: unemployed Cognitive needs: No Hearing needs: No Vision needs: Yes Meds Allergies Allergy/AdvReac Type Severity Reaction Status Date / Time rivaroxaban (From XARELTO) AdvReac Intermediate LEG EDEMA, Verified 01/20/25 10:51 RASH Active Medications: Current Medications Acetaminophen (Acetaminophen 325 Mg Tablet) 650 mg PO Q6H PRN PRN Reason: Pain, Mild 1-3,fever,headache Apixaban (Apixaban 5 Mg Tablet) 5 mg PO BID ANTHONY Last Admin: 01/21/25 10:07 Dose: 5 mg Artificial Tears (Artificial Tears 15 Ml Drops) 1 drop EYE-BOTH BID PRN PRN Reason: Dry Eye(S) Calcium Carbonate (Calcium Carbonate 750 Mg Tab.Chew) 750 mg PO Q4H PRN PRN Reason: Heartburn Dofetilide (Dofetilide 125 Mcg Capsule) 250 mcg PO BID [facility] Last Admin: 01/21/25 10:07 Dose: 250 mcg Furosemide (Furosemide 40 Mg Tablet) 40 mg PO DAILY [facility]; Protocol Last Admin: 01/21/25 10:07 Dose: 40 mg Magnesium Hydroxide (Milk Of Magnesia 30 Ml Oral.Susp) 30 ml PO DAILY PRN PRN Reason: Constipation Melatonin (Melatonin 3 Mg Tablet) 6 mg PO BEDTIME PRN PRN Reason: Insomnia Pyridoxine HCl (Pyridoxine Hcl (Vitamin B6) 50 Mg Tablet) 100 mg PO DAILY [facility] Last Admin: 01/21/25 10:07 Dose: 100 mg Sacubitril/Valsartan (Sacubitril/Valsartan 1 Tab Tablet) 1 tab PO BID [facility]; Protocol Last Admin: 01/21/25 10:29 Dose: 1 tab Sodium Chloride (0.9 % Sodium Chloride Flush 3 Ml Syringe) [facility] Last Admin: 01/21/25 10:08 Dose: 3 ml Home Medications ?Medication ?Instructions ?Recorded ?Confirmed ?Last Taken ?Type acetaminophen 500 mg tablet 500 mg PO Q6H PRN Pain 01/20/25 Unknown History (Tylenol Extra Strength) montelukast 10 mg tablet 10 mg PO BEDTIME PRN asthma 12/26/24 01/20/25 Unknown History polyvinyl alcohol 1.4 % eye drops 1 drp ophthalmic (ey e) BID PRN Dry 01/20/25 01/20/25 Unknown History (Artificial Tears (polyvinyl Eye(S) alcohol)) sotalol 80 mg tablet 160 mg PO BID 01/20/2501/2001/20/25 History Physical Exam 2 Vital Signs: Vital Signs: Last Vital Signs Temp 97.8 F 01/21/25 10:57 Pulse 75 01/21/25 10:57 Resp 20 01/21/25 10:57 BP 145/68 H 01/21/25 10:57 Pulse Ox 96 01/21/25 10:57 O2 Del Method Room Air 01/21/25 10:57 O2 Flow Rate 5 01/20/25 14:10 Oxygen Flow Rate 0 01/20/25 14:14 BMI result Body Mass Index 30.0 Const: General: cooperative, comfortable, no acute distress, well developed, alert, awake and anxious Nutritional Appearance: well nourished and overweight Orientation/consciousness: patient oriented x3 HEENT: Head: Yes normocephalic and Yes atraumatic Neck: Neck: Yes trachea midline, Yes supple and Yes no JVD Resp: Effort & Inspection: normal respiratory effort Auscultation: clear to auscultation bilaterally Cardio: Jugular venous distension: no JVD Rate: regular rate Rhythm: r egular rhythm Heart sounds: S1 normal heart sound present, S2 normal heart sound present, no click, no gallops, no murmurs and no rubs GI: Auscultation: normal bowel sounds Skin: General skin exam: no rashes or lesions noted Neuro: General: patient oriented x3 and no focal motor deficits Extrem: General: Yes no clubbing, cyanosis or edema Psych: Affect: Sad affect present and Anxious affect present Objective Labs and Meds 01/20/25 11:11 01/21/25 04:24 Lab results: Laboratory Results - last 24 hr 01/20/25 01/20/25 01/20/25 11:11 11:12 11:57 WBC 5.4 RBC 4.60 Hgb 13.2 Hct 39.8 MCV 86.5 MCH 28.7 MCHC 33.2 RDW 14.0 Plt Count 215 MPV 10.5 Immature Gran % (Auto) 0.2 Neut % (Auto) 56.6 Lymph % (Auto) 31.7 Ashe % (Auto) 8.2 Eos % (Auto) 2.2 Baso % (Auto) 1.1 Lymph # (Auto) 1.7 Ashe # (Auto) 0.4 Eos # (Auto) 0.1 Baso # (Auto) 0.1 Abs Immat Gran (auto) 0.01 Absolute Neuts (auto) 3.1 Absolute Nucleated RBC 0.000 Nucleated RBC % (auto) 0.0 PT 17.7 H INR 1.5 H Sodium 143 Potassium 3.7 Chloride 106 Carbon Dioxide 28 Anion Gap 13 BUN 12 Creatinine 0.72 Estim Creat Clear Calc 90.6 Estimated GFR > 60 POC Glucose Random Glucose 125 H Calcium 9.2 Magnesium 2.1 Total Bilirubin 1.1 H AST 25 ALT 25 Alkaline Phosphatase 116 Troponin I High Sens 6.1 NT-Pro-B Natriuret Pep 3101.9 H Total Protein 7.1 Albumin 4.5 TSH 1.14 Urine Color Yellow Urine Appearance Clear Urine pH 7.5 Ur Specific R[place]y <= 1.005 Urine Protein Negative Urine Glucose (UA) Negative Urine Ketones Negative Urine Blood Negative Urine Nitrite Negative Ur Leukocyte Esterase Trace H Urine RBC 0-2 Urine WBC 0-5 Ur Squamous Epith Cells 0-2 Urine Bacteria None Seen Hyaline Casts 0-2 01/20/25 01/21/25 16:38 04:24 WBC RBC Hgb Hct MCV MCH MCHC RDW Plt Count MPV Immature Gran % (Auto) Neut % (Auto) Lymph % (Auto) Ashe % (Auto) Eos % (Auto) Baso % (Auto) Lymph # (Auto) Ashe # (Auto) Eos # (Auto) Baso # (Auto) Abs Immat Gran (auto) Absolute Neuts (auto) Absolute Nucleated RBC Nucleated RBC % (auto) PT INR Sodium 146 H Potassium 4.2 Chloride 109 H Carbon Dioxide 28 Anion Gap 13 BUN 20 H Creatinine 0.67 Estim Creat Clear Calc 97.4 Estimated GFR > 60 POC Glucose 86 Random Glucose 96 Calcium 9.1 Magnesium 2.2 Total Bilirubin AST ALT Alkaline Phosphatase Troponin I High Sens NT-Pro-B Natriuret Pep Total Protein Albumin TSH Urine Color Urine Appearance Urine pH Ur Specific [place] Urine Protein Urine Glucose (UA) Urine Ketones Urine Blood Urine Nitrite Ur Leukocyte Esterase Urine RBC Urine WBC Ur Squamous Epith Cells Urine Bacteria Hyaline Casts Assessment and Plan (1) Atrial fibrillation with RVR: Status: Acute Patient was recurrent atrial fibrillation rapid ventricular response highly symptomatic with presentation with symptoms of lightheadedness low blood pressure as well as elevated BNP which are not unusual for her. Patient is highly symptomatic and underwent a urgent cardioversion in the emergency room yesterday with successful conversion. Patient needs to be switch to a different antiarrhythmic drug therapy given maximize sotalol dose and overall poor deficiency with recurrent episodes. She however needs more urgent evaluation outpatient by electrophysiology for consideration home for ablation sooner rather than later. Discussed with her. Meanwhile will switch her to Tikosyn 250 mcg b.i.d. and watch her EKGs closely. As mentioned in the history physical her likelihood of having polymorphic ventricular tachycardia is low as her heart rate is maintained at 70 beats per minute and she has underlying defibrillator if we can closely monitor her. If she tolerates 250 mcg b.i.d. without significant QT prolongation compared to a baseline would increase it to 500 mcg b.i.d. tomorrow. Will monitor and closely follow with you. Continue full oral anticoagulation with Eliquis. Add Coreg 3.125 mg b.i.d.. Advised her stress mitigation strategies so that she does not have recurrent atrial fibrillation. (2) Heart failure with improved ejection fraction (HFimpEF): Status: Acute Heart failure with reduced ejection fraction in the past with improved LV ejection fraction with maintenance of rhythm as well as neurohormonal modulation with a cardiac resynchronization therapy. Clinically BNP is elevated probably related to recurrent atrial fibrillation but does not appear to be in significant heart failure. Continue her usual diuretic dose. Add carvedilol 3.125 mg b.i.d. as we are discontinuing sotalol for neurohormonal modulation. Continue Entresto therapy. Continue rhythm control approach as above. (3) Biventricular ICD (implantable cardioverter-defibrillator) in place: Status: Acute Biventricular ICD in place working well. Will follow with you Procedures Date of Service Date of Service: 01/21/25
--- NOTE | 2025-01-21 11:08 | ECG_ITS ---
Test Reason : REPEAT Blood Pressure : */* mmHG Vent. Rate : 70 BPM Atrial Rate : 70 BPM P-R Int : 156 ms QRS Dur : 152 ms QT Int : 496 ms P-R-T Axes : 101 270 64 degrees QTcB Int : 535 ms AV dual-paced rhythm with occasional atrial-paced complexes Abnormal ECG When compared with ECG of 21-Jan-2025 08:45, Vent. rate has decreased by 3 bpm Referred By: Rio Phillips Electronically Signed By: Edmund Miles
--- NOTE | 2025-01-21 11:21 | PC.NURSE ---
EKG for 2 hour post-medication administration of Tikosyn collected and sent to attending provider.
--- NOTE | 2025-01-21 23:13 | ECG_ITS ---
Test Reason : CP Blood Pressure : */* mmHG Vent. Rate : 71 BPM Atrial Rate : 73 BPM P-R Int : 158 ms QRS Dur : 144 ms QT Int : 498 ms P-R-T Axes : 53 270 77 degrees QTcB Int : 541 ms AV dual-paced rhythm with frequent ventricular-paced complexes Abnormal ECG When compared with ECG of 21-Jan-2025 11:08, No significant change was found Referred By: Rio Phillips Electronically Signed By: Edmund Miles
[2025-01-22] VITALS (8 sets, daily range): BP systolic 116–137; BP diastolic 58–65; PULSE 70–97; RESP 14–20; TEMP 36.3–37; O2SAT 94–99
--- NOTE | 2025-01-22 | ECG_ITS ---
Test Reason : check qtc Blood Pressure : */* mmHG Vent. Rate : 82 BPM Atrial Rate : 82 BPM P-R Int : 158 ms QRS Dur : 120 ms QT Int : 448 ms P-R-T Axes : 80 -79 64 degrees QTcB Int : 523 ms Sinus rhythm with Fusion complexes Left axis deviation Minimal voltage criteria for LVH, may be normal variant ( [place] product ) Inferior infarct (cited on or before 22-Jan-2025) Possible Anterolateral infarct (cited on or before 22-Jan-2025) Prolonged QT Abnormal ECG When compared with ECG of 22-Jan-2025 11:02, Fusion complexes are now Present Referred By: Rio Phillips Electronically Signed By: Edmund Miles
--- NOTE | 2025-01-22 07:44 | ECG_ITS ---
Test Reason : CP Blood Pressure : */* mmHG Vent. Rate : 74 BPM Atrial Rate : 73 BPM P-R Int : 156 ms QRS Dur : 138 ms QT Int : 462 ms P-R-T Axes : 90 267 81 degrees QTcB Int : 512 ms AV dual-paced rhythm with occasional atrial-paced complexes Abnormal ECG When compared to the previous EKG of No significant changes seen Referred By: Rio Phillips Electronically Signed By: Edmund Miles
[2025-01-22] MEDS: Sacubitril/Valsartan 24/26 1 TAB TABLET PO ×2 (08:05→21:11)
[2025-01-22] MEDS: 0.9 % Sodium Chloride Flush 3 ML SYRINGE IVFLUSH (08:06)
--- NOTE | 2025-01-22 11:02 | ECG_ITS ---
Test Reason : CP Blood Pressure : */* mmHG Vent. Rate : 89 BPM Atrial Rate : 89 BPM P-R Int : 158 ms QRS Dur : 120 ms QT Int : 444 ms P-R-T Axes : 66 -87 46 degrees QTcB Int : 540 ms Normal sinus rhythm Left axis deviation Minimal voltage criteria for LVH, may be normal variant ( [place] product ) Inferior infarct , age undetermined Possible Anterolateral infarct , age undetermined Abnormal ECG When compared with ECG of 22-Jan-2025 07:44, Sinus rhythm has replaced Electronic ventricular pacemaker Prolonged QT Referred By: Rio Phillips Electronically Signed By: Edmund Miles
[2025-01-22] MEDS: Potassium Chloride ER 20 MEQ TAB.ER.PRT PO (13:34)
--- NOTE | 2025-01-22 14:15 | HO.WOUND ---
Wound Consult: Initial 69yr old [place] [facility] [place] - See progress notes and H&P for detailed history.? Wound consult placed for Chest and back Cardioversion pad burn.? Patient agreeable to assessment and photo documentation.? Patient reports the same thing occurred last month when she was in ED and had cardioversion. She reports they used barrier cream on the inpatient units and it helps sooth the irritation. Skin assessed to be irritated unclear if burn or adhesive related or irritation occurred. The skin is intact no concerns noted. Barrier cream applied per patient request and patient reports soothing. Should the skin open / worsen or deteriorate reconsult wound care team. Chest Back Cardioversion pad irritation - intact tissue. Recommendations: Chest and Back Sites - Routine cleansing. Apply barrier cream or vaseline to skin to allow for moist skin healing and aid in itch relief. Re-consult wound care Nurse for wound deterioration or wound changes.
--- NOTE | 2025-01-22 16:26 | HO.PM.IMPN ---
Subjective Subjective Date of Service: 01/22/25 Interval History: AFib Review of Systems No new complaints, had short run of NSVT in intermittent Review of Systems: Yes all other systems are reviewed and are negative Physical Exam Exam: Exam: Appearance: Alert.? Oriented X3.? cvs: [id number] . res: clear to auscultation ,no rhonchii or wheezing abd: no rebound or guarding ,nt, bs present. ext pulses present , no cyanosis . neuro: axo3 , nonfocal. Vital Signs: Vital Signs: Last Vital Signs Temp 98.6 F 01/22/25 11:13 Pulse 88 01/22/25 11:13 Resp 18 01/22/25 11:13 BP 116/58 L 01/22/25 11:13 Pulse Ox 96 01/22/25 11:13 O2 Del Method Room Air 01/22/25 11:13 O2 Flow Rate 5 01/20/25 14:10 Oxygen Flow Rate 0 01/20/25 14:14 BMI result Body Mass Index 29.2 Objective Data Active Medications Acetaminophen (Acetaminophen 325 Mg Tablet) 650 mg PO Q6H PRN PRN Reason: Pain, Mild 1-3,fever,headache Last Admin: 01/22/25 08:05 Dose: 650 mg Documented By: BENTON Apixaban (Apixaban 5 Mg Tablet) 5 mg PO BID [facility] Last Admin: 01/22/25 08:05 Dose: 5 mg Documented By: BENTON Artificial Tears (Artificial Tears 15 Ml Drops) 1 drop EYE-BOTH BID PRN PRN Reason: Dry Eye(S) Calcium Carbonate (Calcium Carbonate 750 Mg Tab.Chew) 750 mg PO Q4H PRN PRN Reason: Heartburn Carvedilol (Carvedilol 3.125 Mg Tablet) 3.125 mg PO BID [facility]; Protocol Last Admin: 01/22/25 08:05 Dose: 3.125 mg Documented By: BENTON Dofetilide (Dofetilide 125 Mcg Capsule) 125 mcg PO BID ANTHONY Furosemide (Furosemide 40 Mg Tablet) 40 mg PO DAILY [facility]; Protocol Last Admin: 01/22/25 08:05 Dose: 40 mg Documented By: BENTON Magnesium Hydroxide (Milk Of Magnesia 30 Ml Oral.Susp) 30 ml PO DAILY PRN PRN Reason: Constipation Melatonin (Melatonin 3 Mg Tablet) 6 mg PO BEDTIME PRN PRN Reason: Insomnia Pyridoxine HCl (Pyridoxine Hcl (Vitamin B6) 50 Mg Tablet) 100 mg PO DAILY [facility] Last Admin: 01/22/25 08:05 Dose: 100 mg Documented By: BENTON Sacubitril/Valsartan (Sacubitril/Valsartan 1 Tab Tablet) 1 tab PO BID [facility]; Protocol Last Admin: 01/22/25 08:05 Dose: 1 tab Documented By: BENTON Sodium Chloride (0.9 % Sodium Chloride Flush 3 Ml Syringe) 3 ml IVFLUSH QSHIFT [facility] Last Admin: 01/22/25 14:59 Dose: Not Given Documented By: BENTON Non-Admin Reason: Previously Administered Labs 01/20/25 11:11 01/21/25 04:24 Assessment and Plan (1) Heart failure with improved ejection fraction (HFimpEF): Status: Acute (2) Atrial fibrillation with RVR: Status: Acute (3) Nonischemic cardiomyopathy: Status: Acute Plan dY2: 69-year-old female with a history of paf on Eliquis s/p CV and ablation x2 , HFrEF, AICD who presented with dizziness and racing heart found to be in afib with RVR with, unstable with low bp requiring cardioversion in the ED. Atrial fibrillation with rapid ventricular response s/p successfull CV in ED stop sotalol Has small run of NSVT on tikosyn adjusted to 125 mg b.i.d.-monitoring EKG per protocol Continue Coreg Keep electrolytes potassium around 4.5 and magnesium around 2. continue anticoagulation with Eliquis HFrEF not in overt HF at this time continue baseline lasix, Entresto DVT prophylaxis-Eliquis Code status-full code Need for hospitalization: atrial fibrillation with rapid ventricular response requiring specialist evaluation, antiarrhythmic medication requiring close cardiac monitoring and frequent EKGs which can not be done in a lesser acute setting. Total time managing care of this patient today: 35 minutes. Quality Stroke Does the patient have a stroke diagnosis?: No VTE Prior VTE?: No VTE Risk Level:: Medical - moderate - high VTE Device Contraindication: Treatment Not Indicated VTE Drug Contraindication: N/A - Med Ordered
--- NOTE | 2025-01-22 22:48 | ECG_ITS ---
Test Reason : arrhythimia Blood Pressure : */* mmHG Vent. Rate : 73 BPM Atrial Rate : 73 BPM P-R Int : 166 ms QRS Dur : 122 ms QT Int : 460 ms P-R-T Axes : 76 -86 77 degrees QTcB Int : 506 ms Atrial-sensed ventricular-paced rhythm Left axis deviation Minimal voltage criteria for LVH, may be normal variant ( [place] product ) Inferior infarct (cited on or before 22-Jan-2025) Cannot rule out Anterior infarct (cited on or before 22-Jan-2025) Abnormal ECG When compared with ECG of 22-Jan-2025 13:36, Fusion complexes are no longer Present Referred By: Rio Phillips Electronically Signed By: Edmund Miles
[2025-01-23] VITALS (8 sets, daily range): BP systolic 116–141; BP diastolic 60–74; PULSE 69–92; RESP 16–18; TEMP 36.1–37.2; O2SAT 95–97
[2025-01-23] MEDS: 0.9 % Sodium Chloride Flush 3 ML SYRINGE IVFLUSH ×3 (00:17→18:11)
[2025-01-23 06:28] LABS: Alanine Aminotransferase 15 U/L (0-31); Albumin Level 3.8 g/dL (3.5-5.0); Alkaline Phosphatase 94 U/L (39-117); Anion Gap 10 (12-20); Aspartate Amino Transferase 19 U/L (5-31); Blood Urea Nitrogen 13 mg/dL (9-16); Calcium 9.0 mg/dL (8.4-10.2); Carbon Dioxide 27 mmol/L (22-29); Chloride 108 mmol/L (96-108); Creatinine Clr Calc Pharmacy 97.6; Estimated Glomerular Filt Rate > 60; Potassium 4.2 mmol/L (3.3-5.1); Sodium 141 mmol/L (135-145); Total Protein 6.1 g/dL (6.5-8.0)
[2025-01-23] MEDS: Sacubitril/Valsartan 24/26 1 TAB TABLET PO ×2 (08:14→20:11)
[2025-01-23] MEDS: Potassium Chloride Packet 20 MEQ PACKET PO (08:14)
--- NOTE | 2025-01-23 10:15 | ECG_ITS ---
Test Reason : dofitolide Blood Pressure : */* mmHG Vent. Rate : 79 BPM Atrial Rate : 79 BPM P-R Int : 172 ms QRS Dur : 118 ms QT Int : 450 ms P-R-T Axes : 88 270 53 degrees QTcB Int : 516 ms Sinus rhythm with occasional atrial-paced complexes -A sensed V paced Left axis deviation Minimal voltage criteria for LVH, may be normal variant ( [place] product ) Inferior infarct (cited on or before 22-Jan-2025) Possible Anterolateral infarct (cited on or before 22-Jan-2025) Prolonged QT Abnormal ECG When compared with ECG of 22-Jan-2025 22:48, Electronic atrial pacemaker has replaced Sinus rhythm Referred By: Rio Phillips Electronically Signed By: Edmund Miles
--- NOTE | 2025-01-23 14:23 | P.PNIM_ITS ---
Subjective Subjective Date of Service: 01/23/25 Interval History: afib Review of Systems no new c/o Review of Systems: Yes all other systems are reviewed and are negative Physical Exam 2 Exam: Exam: Appearance: Alert.? Oriented X3.? cvs: [id number] . res: clear to auscultation ,no rhonchii or wheezing abd: no rebound or guarding ,nt, bs present. ext pulses present , no cyanosis . neuro: axo3 , nonfocal. Vital Signs: Vital Signs: Last Vital Signs Temp 97.3 F 01/23/25 11:34 Pulse 82 01/23/25 11:34 Resp 18 01/23/25 11:34 BP 134/73 01/23/25 11:34 Pulse Ox 95 01/23/25 11:34 O2 Del Method Room Air 01/23/25 11:34 O2 Flow Rate 5 01/20/25 14:10 Oxygen Flow Rate 0 01/20/25 14:14 BMI result Body Mass Index 29.2 Objective Data Active Medications Acetaminophen (Acetaminophen 325 Mg Tablet) 650 mg PO Q6H PRN PRN Reason: Pain, Mild 1-3,fever,headache Last Admin: 01/22/25 21:13 Dose: 650 mg Documented By: ELYSE Apixaban (Apixaban 5 Mg Tablet) 5 mg PO BID [facility] Last Admin: 01/23/25 08:14 Dose: 5 mg Documented By: PEREZ Artificial Tears (Artificial Tears 15 Ml Drops) 1 drop EYE-BOTH BID PRN PRN Reason: Dry Eye(S) Calcium Carbonate (Calcium Carbonate 750 Mg Tab.Chew) 750 mg PO Q4H PRN PRN Reason: Heartburn Carvedilol (Carvedilol 3.125 Mg Tablet) 3.125 mg PO BID [facility]; Protocol Last Admin: 01/23/25 08:14 Dose: 3.125 mg Documented By: PEREZ Dofetilide (Dofetilide 125 Mcg Capsule) 125 mcg PO BID [facility] Last Admin: 01/23/25 08:14 Dose: 125 mcg Documented By: PEREZ Furosemide (Furosemide 40 Mg Tablet) 40 mg PO DAILY [facility]; Protocol Last Admin: 01/23/25 08:14 Dose: 40 mg Documented By: PEREZ Magnesium Hydroxide (Milk Of Magnesia 30 Ml Oral.Susp) 30 ml PO DAILY PRN PRN Reason: Constipation Melatonin (Melatonin 3 Mg Tablet) 6 mg PO BEDTIME PRN PRN Reason: Insomnia Pyridoxine HCl (Pyridoxine Hcl (Vitamin B6) 50 Mg Tablet) 100 mg PO DAILY [facility] Last Admin: 01/23/25 08:14 Dose: 100 mg Documented By: PEERZ Sacubitril/Valsartan (Sacubitril/Valsartan 1 Tab Tablet) 1 tab PO BID [facility]; Protocol Last Admin: 01/23/25 08:14 Dose: 1 tab Documented By: PEREZ Sodium Chloride (0.9 % Sodium Chloride Flush 3 Ml Syringe) 3 ml IVFLUSH QSHIFT [facility] Last Admin: 01/23/25 08:15 Dose: 3 ml Documented By: PEREZ Labs 01/20/25 11:11 01/23/25 06:10 Labs: Laboratory Results - last 24 hr 01/23/25 06:10 Anion Gap 10 L Estim Creat Clear Calc 97.6 Estimated GFR > 60 Random Glucose 102 Calcium 9.0 Total Bilirubin 0.6 AST 19 ALT 15 Alkaline Phosphatase 94 Total Protein 6.1 L Albumin 3.8 Assessment and Plan (1) Heart failure with improved ejection fraction (HFimpEF): Status: Acute (2) Atrial fibrillation with RVR: Status: Acute (3) Nonischemic cardiomyopathy: Status: Acute Plan dY3: 69-year-old female with a history of paf on Eliquis s/p CV and ablation x2 , HFrEF, AICD who presented with dizziness and racing heart found to be in afib with RVR with, unstable with low bp requiring cardioversion in the ED. Atrial fibrillation with rapid ventricular response s/p successfull CV in ED stop sotalol Has small run of NSVT on tikosyn adjusted to 125 mg b.i.d.-monitoring EKG per protocol adjusted Coreg 6.25 mg bid Keep electrolytes potassium around 4.5 and magnesium around 2. continue anticoagulation with Eliquis HFrEF not in overt HF at this time continue baseline lasix, Entresto DVT prophylaxis-Eliquis Code status-full code Need for hospitalization: atrial fibrillation with rapid ventricular response requiring specialist evaluation, antiarrhythmic medication requiring close cardiac monitoring and frequent EKGs which can not be done in a lesser acute setting. Total time managing care of this patient today: 40 minutes. Quality Stroke Does the patient have a stroke diagnosis?: No VTE Prior VTE?: No VTE Risk Level:: Medical - moderate - high VTE Device Contraindication: Treatment Not Indicated VTE Drug Contraindication: N/A - Med Ordered
--- NOTE | 2025-01-23 14:45 | PM.PNCARD ---
Subjective Subjective Date of Service: 01/23/25 Interval history: Seen examined at bedside. Telemetry reviewed. She had short runs of nonsustained VT as well as atrial fibrillation. She has been asymptomatic. Physical Exam Vital Signs: Last Vital Signs Temp 97.3 F 01/23/25 11:34 Pulse 82 01/23/25 11:34 Resp 18 01/23/25 11:34 BP 134/73 01/23/25 11:34 Pulse Ox 95 01/23/25 11:34 O2 Del Method Room Air 01/23/25 11:34 O2 Flow Rate 5 01/20/25 14:10 Oxygen Flow Rate 0 01/20/25 14:14 BMI result Body Mass Index 29.2 GENERAL APPEARANCE: in no acute distress, pleasant. NECK: no carotid bruit, no jugular venous distention. SKIN: no suspicious lesions, warm and dry. HEART: no murmurs, regular rate and rhythm. LUNGS: clear to auscultation bilaterally. ABDOMEN: soft, nontender. EXTREMITIES: no edema. PERIPHERAL PULSES: equal. NEUROLOGIC: No gross deficits, AAO X 3 Objective Labs and Meds 01/20/25 11:11 01/23/25 06:10 Lab results: Laboratory Results - last 24 hr 01/23/25 06:10 Sodium 141 Potassium 4.2 Chloride 108 Carbon Dioxide 27 Anion Gap 10 L BUN 13 Creatinine 0.66 Estim Creat Clear Calc 97.6 Estimated GFR > 60 Random Glucose 102 Calcium 9.0 Total Bilirubin 0.6 AST 19 ALT 15 Alkaline Phosphatase 94 Total Protein 6.1 L Albumin 3.8 Progress Note: A&P Assessment and plan (1) Heart failure with improved ejection fraction (HFimpEF): Status: Acute (2) PAF (paroxysmal atrial fibrillation): Status: Acute Plan [age] year female with paroxysmal atrial fibrillation and background of congestive heart failure. She was started on dofetilide and she is currently taking 125 mg twice a day. QTC has been stable. Titrate carvedilol to 6.25 mg twice a day. Ambulate in the hallways to reassess any symptoms. Hopefully home by tomorrow. Follow up with Dr. Bruno in few weeks. Thank you for allowing me to participate in the care of your patient. Please feel free to contact me if you have any questions. Time Spent With Patient Time: Total time managing care of this patient today ____ minutes. Progress Note: Quality Stroke Does the patient have a stroke diagnosis?: No Procedures Date of Service Date of Service: 01/23/25
--- NOTE | 2025-01-23 22:15 | ECG_ITS ---
Test Reason : TIKOSYN LOAD Blood Pressure : */* mmHG Vent. Rate : 77 BPM Atrial Rate : 77 BPM P-R Int : 128 ms QRS Dur : 168 ms QT Int : 488 ms P-R-T Axes : 109 268 78 degrees QTcB Int : 552 ms AV dual-paced rhythm Possible Lateral infarct (cited on or before 23-Jan-2025) Inferior infarct (cited on or before 23-Jan-2025) Abnormal ECG When compared with ECG of 23-Jan-2025 10:16, QT has lengthened Referred By: Manny Preston Electronically Signed By: Edmund Miles
--- NOTE | 2025-01-24 | ECG_ITS ---
Test Reason : qt interval Blood Pressure : */* mmHG Vent. Rate : 76 BPM Atrial Rate : 76 BPM P-R Int : 148 ms QRS Dur : 138 ms QT Int : 474 ms P-R-T Axes : 97 263 83 degrees QTcB Int : 533 ms Suspect limb lead reversal, interpretation assumes no reversal Atrial-paced rhythm with frequent ventricular-paced complexes Right bundle branch block Possible Lateral infarct , age undetermined Inferior infarct , age undetermined Abnormal ECG When compared with ECG of 24-Jan-2025 09:49, Electronic ventricular pacemaker has replaced Sinus rhythm Referred By: Hoemro Chamorro Electronically Signed By: Edmund Miles
[2025-01-24 03:19] VITALS: BP 116/57; PULSE 73; RESP 18; TEMP 36.1; O2SAT 94
[2025-01-24 07:17] VITALS: BP 137/65; PULSE 74; RESP 18; TEMP 36.4; O2SAT 95
[2025-01-24 07:43] VITALS: BP 137/65; PULSE 74
[2025-01-24] MEDS: Sacubitril/Valsartan 24/26 1 TAB TABLET PO (07:43)
[2025-01-24] MEDS: 0.9 % Sodium Chloride Flush 3 ML SYRINGE IVFLUSH (07:45)
--- NOTE | 2025-01-24 09:43 | ECG_ITS ---
Test Reason : tikosyn loading Blood Pressure : */* mmHG Vent. Rate : 76 BPM Atrial Rate : 76 BPM P-R Int : 170 ms QRS Dur : 126 ms QT Int : 472 ms P-R-T Axes : 94 -88 65 degrees QTcB Int : 531 ms Normal sinus rhythm /A-sensed V-paced rhythm Prolonged QTc Abnormal ECG When compared to the previous EKG of QRS morphology is different NSR present (previous ECG was dual paced). Referred By: Homero Chamorro Electronically Signed By: Edmund Miles
[2025-01-24 11:02] VITALS: BP 119/68; PULSE 80; RESP 16; TEMP 36.7; O2SAT 96
--- NOTE | 2025-01-24 12:34 | PM.PNCARD ---
Subjective Subjective Date of Service: 01/24/25 Interval history: Seen examined at bedside. She is feeling good. Telemetry is showing short runs of atrial arrhythmia (attack versus short runs of AFib) Physical Exam Vital Signs: Last Vital Signs Temp 98.0 F 01/24/25 11:02 Pulse 80 01/24/25 11:02 Resp 16 01/24/25 11:02 BP 119/68 01/24/25 11:02 Pulse Ox 96 01/24/25 11:02 O2 Del Method Room Air 01/24/25 11:02 O2 Flow Rate 5 01/20/25 14:10 Oxygen Flow Rate 0 01/20/25 14:14 BMI result Body Mass Index 29.2 GENERAL APPEARANCE: in no acute distress, pleasant. NECK: no carotid bruit, no jugular venous distention. SKIN: no suspicious lesions, warm and dry. HEART: no murmurs, regular rate and rhythm. LUNGS: clear to auscultation bilaterally. ABDOMEN: soft, nontender. EXTREMITIES: no edema. PERIPHERAL PULSES: equal. NEUROLOGIC: No gross deficits, AAO X 3 Objective Labs and Meds 01/20/25 11:11 01/23/25 06:10 Progress Note: A&P Assessment and plan (1) Heart failure with improved ejection fraction (HFimpEF): Status: Acute (2) PAF (paroxysmal atrial fibrillation): Status: Acute Plan [age] year female with paroxysmal atrial fibrillation and background of congestive heart failure. She was started on dofetilide and she is currently taking 125 mg twice a day. EKGs reviewed with Dr. Bruno-appears to be stable on dofetilide and can be discharged home with the same dose. Titrated carvedilol to 6.25 mg twice a day. Doing well and will follow up with Dr. Bruno after discharge. Time Spent With Patient Time: Total time managing care of this patient today ____ minutes. Progress Note: Quality Stroke Does the patient have a stroke diagnosis?: No Procedures Date of Service Date of Service: 01/24/25
--- NOTE | 2025-01-24 13:02 | HO.PM.IMPN ---
Subjective Subjective Date of Service: 01/24/25 Interval History: no complaints Physical Exam Vital Signs: Vital Signs: Last Vital Signs Temp 98.0 F 01/24/25 11:02 Pulse 80 01/24/25 11:02 Resp 16 01/24/25 11:02 BP 119/68 01/24/25 11:02 Pulse Ox 96 01/24/25 11:02 O2 Del Method Room Air 01/24/25 11:02 O2 Flow Rate 5 01/20/25 14:10 Oxygen Flow Rate 0 01/20/25 14:14 BMI result Body Mass Index 29.2 GENERAL APPEARANCE: in no acute distress, pleasant. NECK: no carotid bruit, no jugular venous distention. SKIN: no suspicious lesions, warm and dry. HEART: no murmurs, regular rate and rhythm. LUNGS: clear to auscultation bilaterally. ABDOMEN: soft, nontender. EXTREMITIES: no edema. PERIPHERAL PULSES: equal. NEUROLOGIC: No gross deficits, AAO X 3 Objective Data Active Medications Acetaminophen (Acetaminophen 325 Mg Tablet) 650 mg PO Q6H PRN PRN Reason: Pain, Mild 1-3,fever,headache Last Admin: 01/22/25 21:13 Dose: 650 mg Documented By: ELYSE Apixaban (Apixaban 5 Mg Tablet) 5 mg PO BID [facility] Last Admin: 01/24/25 07:43 Dose: 5 mg Documented By: REAL Artificial Tears (Artificial Tears 15 Ml Drops) 1 drop EYE-BOTH BID PRN PRN Reason: Dry Eye(S) Calcium Carbonate (Calcium Carbonate 750 Mg Tab.Chew) 750 mg PO Q4H PRN PRN Reason: Heartburn Carvedilol (Carvedilol 6.25 Mg Tablet) 6.25 mg PO BID [facility]; Protocol Last Admin: 01/24/25 07:43 Dose: 6.25 mg Documented By: REAL Dofetilide (Dofetilide 125 Mcg Capsule) 125 mcg PO BID [facility] Last Admin: 01/24/25 07:44 Dose: 125 mcg Documented By: REAL Furosemide (Furosemide 40 Mg Tablet) 40 mg PO DAILY [facility]; Protocol Last Admin: 01/24/25 07:43 Dose: 40 mg Documented By: REAL Magnesium Hydroxide (Milk Of Magnesia 30 Ml Oral.Susp) 30 ml PO DAILY PRN PRN Reason: Constipation Melatonin (Melatonin 3 Mg Tablet) 6 mg PO BEDTIME PRN PRN Reason: Insomnia Pyridoxine HCl (Pyridoxine Hcl (Vitamin B6) 50 Mg Tablet) 100 mg PO DAILY [facility] Last Admin: 01/24/25 07:43 Dose: 100 mg Documented By: REAL Sacubitril/Valsartan (Sacubitril/Valsartan 1 Tab Tablet) 1 tab PO BID [facility]; Protocol Last Admin: 01/24/25 07:43 Dose: 1 tab Documented By: REAL Sodium Chloride (0.9 % Sodium Chloride Flush 3 Ml Syringe) 3 ml IVFLUSH QSHIFT [facility] Last Admin: 01/24/25 07:45 Dose: 3 ml Documented By: REAL Labs 01/20/25 11:11 01/23/25 06:10 Assessment and Plan (1) GARETH (generalized anxiety disorder): Status: Acute Plan 69F PMH hfref, pafib on eilquis, icd, presented with rapid afib Paroxysmal AFib with RVR Started on Tikosyn, carvedilol increased to 6.25 Continue Eliquis Cardiology following Chronic systolic CHF Lasjoey, Amandao, Coreg DVT prophylaxis with Eliquis Full code reason for continued hospitalization:monitoring tikosyn Quality Stroke Does the patient have a stroke diagnosis?: No VTE Prior VTE?: No VTE Risk Level:: Medical - moderate - high VTE Device Contraindication: Treatment Not Indicated VTE Drug Contraindication: N/A - Med Ordered
--- NOTE | 2025-01-24 13:11 | P.DS_ITS ---
DS: Providers Provider Date of admission: 01/20/25 14:54 Date of discharge: 01/24/25 Primary care physician: Jeremy Smith PA-C Consults: 01/20/25 15:05 Consult to Cardiology Routine Consulting Provider: [facility] Reason for consultation: afib rvr s/p CV Has provider been notified: Yes 01/21/25 17:31 Consult to Wound Care Routine Consulting Provider: [facility] Reason for consultation: burn on chest from cardioversion pads DS: Diagnosis Discharge Diagnosis (1) GARETH (generalized anxiety disorder): Status: Acute DS: Summary Hospital Course Hospital Course: from initial hpi: 69-year-old female with a history of HFrEF, pAF on Eliquis, SVT, biventricular ICD who presented to the emergency department due to fatigue. The cardiology office got an alert that the patient went into atrial fibrillation yesterday, she was called and reported felling ok. Today she began feeling tired, with dizziness and racing heart. She presented to the emergency department and was found to be in AFib with rapid ventricular response. Blood pressure was low and the patient remained symptomatic therefore underwent synchronized cardioversion in the emergency department. Cardioversion was successful and patient converted back to normal sinus rhythm. Blood pressure and symptoms have improved. patient took her dose of sotalol this morning and will be admitted for monitored conversion from sotalol to tikosyn. hospital course: Patient was admitted for paroxysmal AFib with rapid ventricular response initially continued on sotalol but had NSVT so was switched to Tikosyn and monitored, also started on carvedilol up titrated to 6.25 mg b.i.d., continued on Eliquis. For chronic systolic CHF remained euvolemic on maintenance Lasix, Entresto, Coreg. Time Attestation Discharge Coordination Time (in mins): 37 Quality: Safe Use of Opioids Does Pt have an Active Cancer Diagnosis on the Problem List?: No Quality: Stroke Does the patient have a stroke diagnosis?: No Physical Exam Vital Signs: Vital Signs: Last Vital Signs Temp 98.0 F 01/24/25 11:02 Pulse 80 01/24/25 11:02 Resp 16 01/24/25 11:02 BP 119/68 01/24/25 11:02 Pulse Ox 96 01/24/25 11:02 O2 Del Method Room Air 01/24/25 11:02 O2 Flow Rate 5 01/20/25 14:10 Oxygen Flow Rate 0 01/20/25 14:14 BMI result Body Mass Index 29.2 GENERAL APPEARANCE: in no acute distress, pleasant. NECK: no carotid bruit, no jugular venous distention. SKIN: no suspicious lesions, warm and dry. HEART: no murmurs, regular rate and rhythm. LUNGS: clear to auscultation bilaterally. ABDOMEN: soft, nontender. EXTREMITIES: no edema. PERIPHERAL PULSES: equal. NEUROLOGIC: No gross deficits, AAO X 3 DS: Data Data Completed and Pending Completed studies during hospitalization [Text1]: Procedures Christian of Cardiac Rhythm, Single (12/07/24) Discharge Plan Discharge Anticipated Discharge Date/Time: 01/24/25 13:06 Patient Disposition: Home, Self-Care Discharge Diagnosis: afib Referrals: Jeremy Smith PA-C [Primary Care Provider, Internal Medicine] - 1 Week Discharge Medications: New carvedilol 6.25 mg Tablet 6.25 mg PO BID Qty: 180 0RF Protocol: Hold for SBP/HR < HOLD for SBP < : 90 HOLD for HR < : 60 dofetilide 125 mcg Capsule 125 mcg PO BID Qty: 180 0RF Continued Eliquis 5 mg tablet 5 mg PO BID Qty: 180 3RF furosemide 40 mg tablet 40 mg PO DAILY Qty: 90 3RF Entresto 24-26 mg tablet 1 tab PO BID 90 Days Qty: 180 3RF polyvinyl alcohol [Artificial Tears (polyvin alc)] 1.4 % Drops 1 drp OPHTHALMIC (EYE) BID PRN (Reason: Dry Eye(S)) (DME) blood pressure test kit-large Kit See Rx Instructions .Route Qty: 1 0RF Rx Instructions: As directed pyridoxine (vitamin B6) 100 mg tablet 100 mg PO DAILY 90 Days Qty: 90 3RF (DME) Knee Brace Large-XLarge Misc See Rx Instructions .Route Qty: 1 0RF Rx Instructions: As directed montelukast 10 mg tablet 10 mg PO BEDTIME PRN (Reason: asthma) acetaminophen [Tylenol Extra Strength] 500 mg tablet 500 mg PO Q6H PRN (Reason: Pain) Discontinued sotalol 80 mg tablet 160 mg PO BID Discharge Orders: Discharge Order (Routine); Ordered 01/24/25 Ordered By: Homero Chamorro Diet: Advance to usual diet Activity on Discharge: As tolerated Stand Alone Forms: Patient Portal Discharge page Print Language: [place] Care Plan Goals: recovery Health Concerns: afib Plan of Treatment: med changes as noted Assessment: see above
--- NOTE | 2025-01-24 13:56 | MHC.CM.PN ---
Patient has been medically cleared for dc to home today, self care. IMM was addressed with Patient and Daughter will transport.
== END 2025-01-24 14:35 | disposition home or self-care (01) | DRG 309 ==
LOC: HO.ED 14:41 → HO.EDOVER 14:54 → HO.IMC 01-21 14:27
PROVIDERS: Hospitalist; Admitting Provider Physician Assistant Medical; Emergency Provider Emergency Medicine; PCP Physician Assistant; Visit Provider Internal Medicine
DX: I48.19 Other persistent atrial fibrillation (principal); I50.22 Chronic systolic (congestive) heart failure; I42.8 Other cardiomyopathies; I47.20 Ventricular tachycardia, unspecified; I11.0 Hypertensive heart disease with heart failure; Z95.810 Presence of automatic (implantable) cardiac defibrillator; Z79.899 Other long term (current) drug therapy
CPT/HCPCS: 36415; 71046; 80048; 80053; 81001; 81003; 82947; 83735; 83880; 84443; 84484; 85025; 85610; 93005; 99285; J2704; J7120

== ENCOUNTER 2025-01-20 14:54 | Outpatient (BNV) | payer MEDICARE, MEDICAID, SELFPAY ==
[2023-05-04 15:23] VITALS: BP 104/68; BP 112/72; BMI 31.3
== END 2025-01-21 08:45 ==
PROVIDERS: Admitting Provider Physician Assistant Medical; Emergency Provider Emergency Medicine; PCP Physician Assistant; Visit Provider Internal Medicine Cardiovascular Disease
DX: R94.31 Abnormal electrocardiogram [ECG] [EKG] (principal); Z95.0 Presence of cardiac pacemaker
CPT/HCPCS: 93010

== ENCOUNTER 2025-01-20 14:54 | Outpatient (BNV) | payer MEDICARE, MEDICAID, SELFPAY ==
[2023-05-04 15:23] VITALS: BP 104/68; BP 112/72; BMI 31.3
== END 2025-01-24 09:43 ==
PROVIDERS: Admitting Provider Physician Assistant Medical; Emergency Provider Emergency Medicine; PCP Physician Assistant; Visit Provider Internal Medicine Cardiovascular Disease
DX: I45.10 Unspecified right bundle-branch block (principal); R94.31 Abnormal electrocardiogram [ECG] [EKG]; Z95.0 Presence of cardiac pacemaker
CPT/HCPCS: 93010

== ENCOUNTER 2025-01-20 14:54 | Outpatient (BNV) | payer MEDICARE, MEDICAID, SELFPAY ==
[2023-05-04 15:23] VITALS: BP 104/68; BP 112/72; BMI 31.3
== END 2025-01-22 07:44 ==
PROVIDERS: Admitting Provider Physician Assistant Medical; Emergency Provider Emergency Medicine; PCP Physician Assistant; Visit Provider Internal Medicine Cardiovascular Disease
DX: R94.31 Abnormal electrocardiogram [ECG] [EKG] (principal); Z95.0 Presence of cardiac pacemaker; R07.9 Chest pain, unspecified; I21.19 ST elevation (STEMI) myocardial infarction involving other coronary artery of inferior wall
CPT/HCPCS: 93010

== ENCOUNTER 2025-01-20 14:54 | Outpatient (BNV) | payer MEDICARE, MEDICAID, SELFPAY ==
[2023-05-04 15:23] VITALS: BP 104/68; BP 112/72; BMI 31.3
== END 2025-01-23 10:15 ==
PROVIDERS: Admitting Provider Physician Assistant Medical; Emergency Provider Emergency Medicine; PCP Physician Assistant; Visit Provider Internal Medicine Cardiovascular Disease
DX: I25.2 Old myocardial infarction (principal)
CPT/HCPCS: 93010

== ENCOUNTER → 2025-01-20 14:54 | Outpatient (BNV) | payer MEDICARE, MEDICAID, SELFPAY ==
[2023-05-04 15:23] VITALS: BP 104/68; BP 112/72; BMI 31.3
== END ==
PROVIDERS: Admitting Provider Physician Assistant Medical; Emergency Provider Emergency Medicine; PCP Physician Assistant; Visit Provider Physician Assistant Medical
DX: I48.91 Unspecified atrial fibrillation (principal)
CPT/HCPCS: 99223

== ENCOUNTER → 2025-01-20 14:54 | Outpatient (BNV) | payer MEDICARE, MEDICAID, SELFPAY ==
[2023-05-04 15:23] VITALS: BP 104/68; BP 112/72; BMI 31.3
== END ==
PROVIDERS: Admitting Provider Physician Assistant Medical; Emergency Provider Emergency Medicine; PCP Physician Assistant; Visit Provider Internal Medicine Cardiovascular Disease
DX: I50.32 Chronic diastolic (congestive) heart failure (principal); I48.0 Paroxysmal atrial fibrillation
CPT/HCPCS: 99232; 99233

== ENCOUNTER → 2025-02-02 08:02 | Outpatient (REF) | payer MEDICARE, MEDICAID, SELFPAY ==
[2023-05-04 15:23] VITALS: BP 104/68; BP 112/72; BMI 31.3
--- OUTSIDE RECORDS SUMMARY | 2025-02-02 08:05 | XMS_ITS | Clinical Summary ---
Author Organization [address] [facility] Address [address] [place] [address] Phone Care Team Providers Care Film Or Tape Librarian Name Role Phone Jeremy Smith Primary Care Provider Allergies Active Allergy Reactions Criticality Noted Date Comments Rivaroxaban 07/12/2024 Medications No known medications Encounters Date Type Department Care Team Description 11/07/2024 2:30 PM EDT Office Visit [facility] [address] [phone] Nick Pozo DPM Foreign body in right [...] Upcoming Encounters Date Type Department Care Team ([facility] st Contact Info) Description 02/06/2025 11:00 AM EST Office Visit [facility] [address] [phone] Nick Pozo DPM [address] [id number] Health Maintenance Due Date Last Done Comments [...] Insurance MEDICARE [place]ICAID - [place] Care Teams Film Or Tape Librarian Relationship Specialty Start Date End Date Jeremy Smith PA [address] [place] [phone] PCP - General Physician Blending Kettle Tender 07/25/24
--- NOTE | 2025-02-02 08:06 | ECG_ITS ---
Test Reason : unspec. afib Blood Pressure : */* mmHG Vent. Rate : 147 BPM Atrial Rate : 156 BPM P-R Int : * ms QRS Dur : 124 ms QT Int : 296 ms P-R-T Axes : * -49 78 degrees QTcB Int : 463 ms Atrial fibrillation with rapid ventricular response with Premature ventricular complexes Left axis deviation Non-specific intra-ventricular conduction delay Minimal voltage criteria for LVH, may be normal variant ( [place] product ) Nonspecific T wave abnormality Abnormal ECG When compared with ECG of 24-Jan-2025 12:32, Atrial fibrillation with rapid ventricular response has replaced AV dual-paced complexes Referred By: Jeremy Smith Electronically Signed By: KY HERNANDEZ MD
== END ==
LOC: HO.CARD 08:02
PROVIDERS: PCP Physician Assistant; Referring Provider Internal Medicine Cardiovascular Disease; Visit Provider Physician Assistant
DX: I48.91 Unspecified atrial fibrillation (principal)
CPT/HCPCS: 93005

== ENCOUNTER → 2025-02-02 08:06 | Outpatient (BNV) | payer MEDICARE, MEDICAID, SELFPAY ==
[2023-05-04 15:23] VITALS: BP 104/68; BP 112/72; BMI 31.3
== END ==
PROVIDERS: PCP Physician Assistant; Referring Provider Internal Medicine Cardiovascular Disease; Visit Provider Internal Medicine Cardiovascular Disease
DX: I48.91 Unspecified atrial fibrillation (principal); R94.31 Abnormal electrocardiogram [ECG] [EKG]; Z95.0 Presence of cardiac pacemaker
CPT/HCPCS: 93010

== ENCOUNTER 2025-02-02 08:39 | Inpatient (IN) | payer MEDICARE, MEDICAID, SELFPAY ==
[2023-05-04 15:23] VITALS: BP 104/68; BP 112/72; BMI 31.3
[2025-02-02] VITALS (15 sets, daily range): BP systolic 84–122; BP diastolic 46–70; PULSE 81–165; RESP 14–20; TEMP 36.2–37.5; O2SAT 94–100; BMI 31.0
--- NOTE | ~2025-02-02 | XR_ITS ---
CLINICAL HISTORY: cough 1 view chest x-ray. Comparison: CR - XR CHEST 2V - 01/20/25 11:40 EST Findings: Normal lung volumes. Lungs are clear. No pneumothorax or pleural effusion. Stable cardiomegaly. Dual-chamber AICD. No passive venous congestion. No midline shift or tracheal deviation. No acute fracture. Impression: 1. No acute cardiopulmonary disease. This document has been electronically signed by: Godfrey Pacheco MD on 02/03/2025 17:42:44
--- NOTE | 2025-02-02 08:54 | ECG_ITS ---
Test Reason : A-FIB Blood Pressure : */* mmHG Vent. Rate : 141 BPM Atrial Rate : * BPM P-R Int : * ms QRS Dur : 124 ms QT Int : 340 ms P-R-T Axes : * -58 120 degrees QTcB Int : 520 ms Atrial fibrillation with rapid ventricular response with occasional ventricular-paced complexes and with premature ventricular or aberrantly conducted complexes Left axis deviation Minimal voltage criteria for LVH, may be normal variant ( [place] product ) Anterolateral infarct , age undetermined Abnormal ECG When compared with ECG of 02-Feb-2025 08:14, No significant changes seen Referred By: Lokesh Vyas Electronically Signed By: KY HERNANDEZ MD
[2025-02-02 09:09] LABS: MANUAL DIFF FLAG NO
[2025-02-02 09:10] LABS: Hematocrit 36.8 % (37.0-47.0); Hemoglobin 12.2 g/dl (12.0-16.0); Imm Gran Abs Auto 0.03 X10*3/uL (0.00-0.03); Imm Gran Pct Auto 0.3 % (0.0-0.4); Lymphocytes Absolute Auto 2.1 X10*3/uL (1.2-4.9); Mean Corpuscular HGB Conc 33.2 g/dl (31.0-35.0); Mean Corpuscular Hemoglobin 28.6 pg (27.0-33.0); Mean Corpuscular Volume 86.4 fL (80.0-98.0); NRBC Abs Auto 0.000 X10*3/uL (0.0-0.012); NRBC Pct Auto 0.0 /100WBC (0.0-0.2); Platelet Count 232 X10*3/uL (160-400); Red Blood Count 4.26 X10*6/uL (4.20-5.50); White Blood Count 9.1 X10*3/uL (4.8-10.8)
[2025-02-02 09:16] LABS: INTERNATIONAL NORM RATIO 1.7 (0.9-1.1); Prothrombin Time 20.3 SEC (11.2-13.5)
--- NOTE | 2025-02-02 09:31 | ED.ARRPALP ---
HPI - Arrhythmia/Palpitations General Chief Complaint: Arrhythmia/Palpitations Stated Complaint: Rapid Afib Time Seen by Provider: 02/02/25 08:49 Source: patient and EMS Mode of arrival: ambulatory Limitations: no limitations History of Present Illness ED Provider: HPI narrative: 69-year-old female with a history of AFib on Eliquis, history of CHF, prior history of ablation, 2 cardioversions, recent admission, presenting with shortness of breath for the past 3-4 days, noted to be in AFib with RVR and hypotensive. Related Data Home Medications ?Medication ?Instructions ?Recorded ?Confirmed acetaminophen 500 mg tablet 500 mg PO Q6H PRN Pain 12/26/24 01/25/25 (Tylenol Extra Strength) montelukast 10 mg tablet 10 mg PO BEDTIME PRN asthma 12/26/24 01/25/25 polyvinyl alcohol 1.4 % eye drops 1 drp ophthalmic (eye) BID PRN Dry 01/20/25 01/25/25 (Artificial Tears (polyvinyl Eye(S) alcohol)) Previous Rx's ?Medication ?Instructions ?Recorded blood pressure test kit-large #1 ea 08/14/21 leg brace (Knee Brace Large-XLarge) #1 ea 07/22/23 pyridoxine (vitamin B6) 100 mg 100 mg PO DAILY 90 days #90 tabs 05/08/24 tablet apixaban 5 mg tablet (Eliquis) 5 mg PO BID #180 tabs 08/01/24 furosemide 40 mg tablet 40 mg PO DAILY #90 tabs 08/01/24 sacubitril 24 mg-valsartan 26 mg 1 tab PO BID 90 days #180 tabs 01/08/25 tablet (Entresto) carvedilol 6.25 mg tablet 6.25 mg PO BID #180 tabs 01/24/25 dofetilide 125 mcg capsule 125 mcg PO BID #180 caps 01/24/25 amoxicillin 875 mg-potassium 1 tab PO BID 7 days #14 tabs 01/29/25 clavulanate 125 mg tablet Allergies Allergy/AdvReac Type Severity Reaction Status Date / Time rivaroxaban (From XARELTO) AdvReac Intermediate LEG EDEMA, Verified 02/02/25 08:51 RASH Review of Systems Constitutional: Constitutional: Reports as per HPI [facility] Past Medical History Medical History Heart failure with reduced ejection fraction Chronic radicular pain of lower back Chest pain Encounter for monitoring sotalol therapy Hypotension arterial Osteoporosis screening Transaminitis Biventricular ICD (implantable cardioverter-defibrillator) in place Nonischemic cardiomyopathy SVT (supraventricular tachycardia) PAF (paroxysmal atrial fibrillation) HLD (hyperlipidemia) HTN (hypertension) History of cardioversion Obesity (BMI 30-39.9) Graves' disease in remission Surgical History History of radiofrequency ablation procedure for cardiac arrhythmia History of cardiac defibrillator placement Hx of cardiac catheterization (~06/2017) Hx of tubal ligation Family History Family History Father Stroke Hypertension Mother Hypertension Diabetes Daughter AVM (arteriovenous malformation) Son No problems noted. Sister No problems noted. Brother No problems noted. Brother No problems noted. Brother No problems noted. Brother No problems noted. Family/Other Pancreatic cancer Social History Social History Household Members: Spouse Housing: House Do you presently have visiting nurse or other home services: Yes (care worth 1x a month) Alcohol intake: never Comment: moderate risk Patient Tobacco Use Status: Never used Tobacco e-Cigarette/Vaping Use: Never Used Second Hand Smoke Exposure: No service: No Current occupational status: unemployed Cognitive needs: No Hearing needs: No Vision needs: Yes Physical Exam Exam: Exam: ?General: ??looks age appropriate ?PERRLA, EOMI, MMM, Neck: Supple, no LAD ?CV: Irregular and fast ?Resp: ?No wheezing rales rhonchi no stridor moving air well Abd: ?Bowel sounds are present, no tenderness no rebound no rigidity MSK: FROM, strength 5/5 all extremities, no lower extremity swelling Skin: Warm, dry, intact, ?Neuro: ?Alert and oriented x3, moving upper and lower extremities symmetrically, no obvious facial asymmetry noted, cranial nerves 2-12 intact Vital Signs: Vital Signs: Last Vital Signs Temp 98.1 F 02/02/25 10:55 Pulse 86 02/02/25 10:55 Resp 16 02/02/25 10:55 BP 115/49 L 02/02/25 10:55 Pulse Ox 100 02/02/25 10:55 O2 Del Method Room Air 02/02/25 08:46 Oxygen Flow Rate 2 02/02/25 10:55 BMI result Body Mass Index 31.0 Medications Administered Discontinued Medications Generic Name Dose Route Start Last Admin Trade Name Freq PRN Reason Stop Dose Admin Etomidate 10 mg 02/02/25 09:19 02/02/25 09:36 Etomidate 20 Mg/10 Ml Vial IVPUSH 02/02/25 09:20 10 mg STAT STA Administration Sodium Chloride 1,000 mls @ 999 mls/hr 02/02/25 09:15 02/02/25 09:19 Ns IV 02/02/25 10:15 Not Given .Q1H1M [facility] Medical Decision Making Medical Decision Making [facility] Narrative: 9:56 AM 02/02/2025 (Dr. Lokesh Vyas): I spoke with Dr. Bruno when patient came in initially in noted that she is in AFib with RVR hypotensive, bedside ultrasound showed that she is not going to be fluid responsive and so decision was made to cardiovert the patient, cardioversion was performed patient tolerated procedure well, her blood pressure improved right away when she was back in sinus rhythm, I continued discussing patient's care with Dr. Bruno who initially recommended transferred to [facility] for inpatient ablation, but 1st he will call and discuss this with EP provider there 11:36 AM 02/02/2025 (Dr. Lokesh Vyas): Updated Cardiology recommendations and my discussion with [facility] transfer line that this is not something the patient to be transferred for and Dr. Bruno states admission here and increase in her Tikosyn with Cardiology to follow up Differential Diagnosis Differential Diagnoses: The differential diagnosis associated with the presentation includes (ACS, pneumothorax, aortic dissection, PE, Boerhaave syndrome) Admission/Observation Consideration of admission/observation: Escalation of care including admission/observation considered Consult Healthcare Provider Management of the patient was discussed with: Admissions Advisor (Cardiology) Lab Data [facility] Lab Attestation statement: I reviewed the patient's lab results. 02/02/25 09:02 02/02/25 09:02 Labs: Lab Results 02/02/25 Range/Units 09:02 WBC 9.1 (4.8-10.8) X10*3/uL RBC 4.26 (4.20-5.50) X10*6/uL Hgb 12.2 (12.0-16.0) g/dl Hct 36.8 L (37.0-47.0) % MCV 86.4 (80.0-98.0) fL MCH 28.6 (27.0-33.0) pg MCHC 33.2 (31.0-35.0) g/dl RDW 14.5 (11.0-16.0) % Plt Count 232 (160-400) X10*3/uL MPV 10.2 (9.4-12.3) fL Immature Gran % (Auto) 0.3 (0.0-0.4) % Neut % (Auto) 68.8 (45-73) % Lymph % (Auto) 22.7 (20-40) % Park % (Auto) 6.6 (2-11) % Eos % (Auto) 1.2 (0-4) % Baso % (Auto) 0.4 (0-2) % Lymph # (Auto) 2.1 (1.2-4.9) X10*3/uL [place] # (Auto) 0.6 (0.1-1.2) X10*3/uL Eos # (Auto) 0.1 (0.0-0.4) X10*3/uL Baso # (Auto) 0.0 (0.0-0.2) X10*3/uL Abs Immat Gran (auto) 0.03 (0.00-0.03) X10*3/uL Absolute Neuts (auto) 6.3 (2.0-8.3) x10*3/uL Absolute Nucleated RBC 0.000 (0.0-0.012) X10*3/uL Nucleated RBC % (auto) 0.0 (0.0-0.2) /100WBC Hold Purple Top SEE NOTE PT 20.3 H (11.2-13.5) SEC INR 1.7 H (0.9-1.1) Sodium 141 (135-145) mmol/L Potassium 4.1 (3.3-5.1) mmol/L Chloride 107 (96-108) mmol/L Carbon Dioxide 24 (22-29) mmol/L Anion Gap 14 (12-20) BUN 14 (9-16) mg/dL Creatinine 0.91 (0.5-1.4) mg/dL Estim Creat Clear Calc 72.8 Estimated GFR > 60 Random Glucose 141 H (60-115) mg/dL Lactic Acid 1.4 (0.5-2.0) mmol/L Calcium 9.3 (8.4-10.2) mg/dL Magnesium 2.1 (1.6-2.6) mg/dL Total Bilirubin 0.9 (0.0-1.0) mg/dL AST 55 H (5-31) U/L ALT 79 H (0-31) U/L Alkaline Phosphatase 149 H (39-117) U/L Troponin I High Sens 9.6 D (<3.5-17.0) ng/L NT-Pro-B Natriuret Pep 4488.7 H (<300) pg/mL Total Protein 6.8 (6.5-8.0) g/dL Albumin 4.4 (3.5-5.0) g/dL Independent Interpretation I performed an independent interpretation of an: EKG (Initial ECG with 141 beats per minute AFib with occasional V paced rhythms and then post cardioversion 93 beats per minute sinus rhythm with frequently paced complexes) Independent Historian Clinical information obtained from an independent historian. History obtained from or confirmed by: Other (Patient's daughter) Chronic Conditions Patient?s care impacted by: Hypertension Procedures Procedure Narrative Procedure Narrative: Written consent for cardioversion was obtained Room was prepped in the usual manner for procedural sedation Two hundred joules x1, with pulse cardioversions showing the patient is back in sinus rhythm, and her blood pressure has improved right away Procedural Sedation Indication: other (Cardioversion) ASA Class: II Mallampati Class: III Preparation: monitor technician applied, pulse oximeter, capnometry used, supplemental O2 applied, suction/airway equipment at bedside and IV secured IV Etomidate dose (mg): 10 Patient Tolerated Procedure: well Complications: none Ultrasound ED POC Ultrasound: EMERGENCY ULTRASOUND REPORT?Point of Care Cardiac (Echo-Focus), images I locally stored Emergent Cardiac for Indication: hypotension Views Used: Parasternal long, parasternal short, 4 chamber, subxiphoid, IVC Pericardial Effusion/Tamponade Findings: Global LV Fxn: Decreased, AFib IVC Dilation and Resp Variation: IVC dilated more than 50% Patient is not going to be fluid responsive for her hypotension Critical Care Time Critical Care Time Critical Care Time: Yes Total Critical Care Time: 45 Attestation: Time is exclusive of separately billable procedures. Time includes: direct patient care, patient reassessment, coordination of patient care, interpretation of data (laboratory data, pulse oximetry, arterial blood gases and chest xrays), review of patient's medical records, medical consultation and documentation of patient care. Procedures excluded from critical care time: central intravenous line placement and electrocardiography. Discharge Plan Discharge Clinical Impression: Atrial fibrillation with RVR, Hypotension Prescriptions: No Action Eliquis 5 mg tablet 5 mg PO BID Qty: 180 3RF furosemide 40 mg tablet 40 mg PO DAILY Qty: 90 3RF Entresto 24-26 mg tablet 1 tab PO BID 90 Days Qty: 180 3RF amoxicillin-pot clavulanate 875-125 mg tablet 1 tab PO BID 7 Days Qty: 14 0RF polyvinyl alcohol [Artificial Tears (polyvin alc)] 1.4 % Drops 1 drp OPHTHALMIC (EYE) BID PRN (Reason: Dry Eye(S)) carvedilol 6.25 mg Tablet 6.25 mg PO BID Qty: 180 0RF Protocol: Hold for SBP/HR < HOLD for SBP < : 90 HOLD for HR < : 60 dofetilide 125 mcg Capsule 125 mcg PO BID Qty: 180 0RF (DME) blood pressure test kit-large Kit See Rx Instructions .Route Qty: 1 0RF Rx Instructions: As directed pyridoxine (vitamin B6) 100 mg tablet 100 mg PO DAILY 90 Days Qty: 90 3RF (DME) Knee Brace Large-XLarge Misc See Rx Instructions .Route Qty: 1 0RF Rx Instructions: As directed montelukast 10 mg tablet 10 mg PO BEDTIME PRN (Reason: asthma) acetaminophen [Tylenol Extra Strength] 500 mg tablet 500 mg PO Q6H PRN (Reason: Pain) Print Language: Georgian
[2025-02-02 09:32] LABS: Troponin-I High Sensitivity 9.6 ng/L (<3.5-17.0)
[2025-02-02] MEDS: Etomidate 20 MG/10 ML VIAL 10 MG IVPUSH (09:36)
--- NOTE | 2025-02-02 09:42 | ECG_ITS ---
Test Reason : ERPRAT Blood Pressure : */* mmHG Vent. Rate : 93 BPM Atrial Rate : 93 BPM P-R Int : 160 ms QRS Dur : 134 ms QT Int : 404 ms P-R-T Axes : 63 -48 116 degrees QTcB Int : 502 ms Sinus rhythm with Ventricular-paced rhythm Abnormal ECG When compared with ECG of 02-Feb-2025 08:54, Normal sinus rhythm has replaced Atrial fibrillation with rapid ventricular response Vent. rate has decreased by 48 bpm Referred By: Lokesh Vyas Electronically Signed By: KY HERNANDEZ MD
[2025-02-02 10:06] LABS: Alanine Aminotransferase 79 U/L (0-31); Albumin Level 4.4 g/dL (3.5-5.0); Alkaline Phosphatase 149 U/L (39-117); Anion Gap 14 (12-20); Aspartate Amino Transferase 55 U/L (5-31); Blood Urea Nitrogen 14 mg/dL (9-16); Calcium 9.3 mg/dL (8.4-10.2); Carbon Dioxide 24 mmol/L (22-29); Chloride 107 mmol/L (96-108); Creatinine Clr Calc Pharmacy 72.8; Estimated Glomerular Filt Rate > 60; Magnesium 2.1 mg/dL (1.6-2.6); Potassium 4.1 mmol/L (3.3-5.1); Sodium 141 mmol/L (135-145); Total Protein 6.8 g/dL (6.5-8.0)
--- NOTE | 2025-02-02 11:43 | P.HPHOSP_ITS ---
History of Present Illness Date of Service: 02/02/25 Attending physician on admission: Rio Phillips Chief Complaint: weakness This is a 69-year-old female with a history of HFrEF, pAF on Eliquis, SVT, biventricular ICD who presented to the emergency department due to fatigue. Patient was admitted 01/20-01/24 for afib rvr requiring CV and subsequently was initiated on tikosyn. She was discharged home on 125 mcg bid. She has been taking her medications without missing a dose. Since January 29 she reports dry cough scratchy throat and intermittent fever of 101-102 at home. She called her primary care provider who prescribed her a course of Augmentin. She had an appointment with her primary care provider this morning but in the office and EKG was obtained which showed atrial fibrillation and she was sent to the emergency department for evaluation. She reports feeling tired, weak and having palpitations. In the emergency department she was hypotensive and therefore she underwent cardioversion and successfully converted back to normal sinus rhythm. Cardiology has recommended increasing dose of tikosyn and therefore she will be admitted for dose adjustment. Review of Systems 2 Review of Systems: Yes all other systems are reviewed and are negative Constitutional: Constitutional: Denies chills and Reports fever(s) Cardiovascular: Cardiovascular: Denies chest pain and Reports palpitations Respiratory: Respiratory: Reports cough Endocrine: Endocrine: Reports palpitations [facility] Medical History Heart failure with reduced ejection fraction Chronic radicular pain of lower back Chest pain Encounter for monitoring sotalol therapy Hypotension arterial Osteoporosis screening Transaminitis Biventricular ICD (implantable cardioverter-defibrillator) in place Nonischemic cardiomyopathy SVT (supraventricular tachycardia) PAF (paroxysmal atrial fibrillation) HLD (hyperlipidemia) HTN (hypertension) History of cardioversion Obesity (BMI 30-39.9) Graves' disease in remission Family History Father Stroke Hypertension Mother Hypertension Diabetes Daughter AVM (arteriovenous malformation) Son No problems noted. Sister No problems noted. Brother No problems noted. Brother No problems noted. Brother No problems noted. Brother No problems noted. Family/Other Pancreatic cancer Surgical History History of radiofrequency ablation procedure for cardiac arrhythmia History of cardiac defibrillator placement Hx of cardiac catheterization (~06/2017) Hx of tubal ligation Social History Household Members: Spouse Housing: House Do you presently have visiting nurse or other home services: Yes (care worth 1x a month) Alcohol intake: never Comment: moderate risk Patient Tobacco Use Status: Never used Tobacco e-Cigarette/Vaping Use: Never Used Second Hand Smoke Exposure: No service: No Current occupational status: unemployed Cognitive needs: No Hearing needs: No Vision needs: Yes Meds Allergies Allergy/AdvReac Type Severity Reaction Status Date / Time rivaroxaban (From XARELTO) AdvReac Intermediate LEG EDEMA, Verified 02/02/25 08:51 RASH Home Medications ?Medication ?Instructions ?Recorded ?Confirmed ?Last Taken ?Type acetaminophen 500 mg tablet 500 mg PO Q6H PRN Pain 02/02/25 Unknown History (Tylenol Extra Strength) montelukast 10 mg tablet 10 mg PO BEDTIME PRN asthma 12/26/24 02/02/25 Unknown History polyvinyl alcohol 1.4 % eye drops 1 drp ophthalmic (ey e) BID PRN Dry 01/20/25 02/02/25 Unknown History (Artificial Tears (polyvinyl Eye(S) alcohol)) tamsulosin 0.4 mg capsule 0.4 mg PO DAILY 02/02/2502/02/25 History Physical Exam 2 Vital Signs and Narrative: Vital Signs: Last Vital Signs Temp 98.1 F 02/02/25 10:55 Pulse 86 02/02/25 10:55 Resp 16 02/02/25 10:55 BP 115/49 L 02/02/25 10:55 Pulse Ox 100 02/02/25 10:55 O2 Del Method Room Air 02/02/25 08:46 Oxygen Flow Rate 2 02/02/25 10:55 BMI result Body Mass Index 31.0 Const: General: cooperative, comfortable, no acute distress, alert and awake Nutritional Appearance: average body habitus Orientation/consciousness: p atient oriented x3 Resp: Effort & Inspection: normal respiratory effort, able to speak in complete sentences, no respiratory distress and no use of accessory muscles Cardio: Rate: regular rate GI: Inspection: No distended Palpation (GI): Soft to palpation and nontender Neuro: General: patient oriented x3, moves all extremities and CN's II-XI intact bilaterally Extrem: General: No pedal edema Results Labs 02/02/25 09:02 02/02/25 09:02 Labs: Laboratory Results - last 24 hr 02/02/25 09:02 MCV 86.4 MCH 28.6 MCHC 33.2 RDW 14.5 Plt Count 232 MPV 10.2 Immature Gran % (Auto) 0.3 Neut % (Auto) 68.8 Lymph % (Auto) 22.7 [place] % (Auto) 6.6 Eos % (Auto) 1.2 Baso % (Auto) 0.4 Lymph # (Auto) 2.1 [place] # (Auto) 0.6 Eos # (Auto) 0.1 Baso # (Auto) 0.0 Abs Immat Gran (auto) 0.03 Absolute Neuts (auto) 6.3 Absolute Nucleated RBC 0.000 Nucleated RBC % (auto) 0.0 Hold Purple Top SEE NOTE PT 20.3 H INR 1.7 H Anion Gap 14 Estim Creat Clear Calc 72.8 Estimated GFR > 60 Random Glucose 141 H Lactic Acid 1.4 Calcium 9.3 Magnesium 2.1 Total Bilirubin 0.9 AST 55 H ALT 79 H Alkaline Phosphatase 149 H Troponin I High Sens 9.6 D NT-Pro-B Natriuret Pep 4488.7 H Total Protein 6.8 Albumin 4.4 Assessment and Plan (1) Atrial fibrillation with RVR: Status: Acute Plan This is a 69-year-old female with a history of pAF on Eliquis s/p multiple CV and ablation x2 , HFrEF, AICD recently admitted for initiation of tikosyn who presented to outpatient appointment found to be in afib with RVR with, unstable with low bp requiring cardioversion in the ED. Atrial fibrillation with rapid ventricular response s/p successful CV in ED admit to titrate dose of tikosyn. received am dose, will give now dose of 125 mcg increase to 250mcg this evening. follow tikosyn protocol - ekg 2 hours post tikosyn dose tele monitoring follow potassium and magnesium levels with goal to keep K >4 and mag >2 cardiology consultation continue anticoagulation with Eliquis has appt for ablation on 02/13 at [facility] URI fever at home, dry cough has been on augmentin since 01/29 possible viral check RPP symptomatic support Mild transaminitis no abdominal pain trend LFTs HFrEF BNP elevated but does not appear to be in overt HF at this time continue baseline lasix, Entresto as bp allows DVT prophylaxis-Eliquis Code status-full code Patient likely to require 2 midnight stay in the hospital for management atrial fibrillation with rapid ventricular response requiring specialist evaluation, antiarrhythmic medication requiring close cardiac monitoring and frequent EKGs which can not be done in a lesser acute setting. Quality Stroke Does the patient have a stroke diagnosis?: No VTE Prior VTE?: No VTE Risk Level:: Medical - moderate - high VTE Device Contraindication: N/A - Device Ordered VTE Drug Contraindication: N/A - Med Ordered
--- NOTE | 2025-02-02 12:04 | PC.NURSE ---
Assumed care of this patient at 1100, pt currently resting quietly on stretcher at this time. Pacer pads still in place, patient paced rhythm on the monitor, endorsing mild diffuse body pain. Plan for patient to be admitted to hospital for cards consult, patient aware of plan admitting provider Keiko currently at bedside.
--- NOTE | 2025-02-02 12:23 | PHA.MEDREC ---
Addendum entered by Kayleigh Cornelius tamia 02/02/25 12:58: reviewed Original Note: Pharmacy Consult ? Medication Reconciliation Pharmacy has completed the medication reconciliation. Spoke with pt and she confirmed her medications. Pt started Augmentin 875-125mg tabs 01/29 for 7 days, she is taking Montelukast as needed for now (until pt sees PCP) since starting Carvedilol and Dofetilide due to fear of those interacting with the Montelukast, she takes Eliquis 5mg tabs 1 BID and she confirmed she was able to take all her medications this morning.
--- NOTE | 2025-02-02 12:28 | HO.NURTONUR ---
Patient presenting to ED today w/ fatigue, found to be in afib RVR w/ low bp. Cardioverted x 1in dept, patient is now paced on monitor. PMH: cardioversions/ablation x2 , HFrEF, AICD recently admitted for initiation of tikosyn, taking prescribed dose BID. Recently sick at home, taking Augmentin prescribed from PCP. Cards consult: increase tikosyn. Currently waiting for pharmacy to verify dose. EKG 2 hours post dose ordered. Patient alert/oriented, SB to commode d/t cardioversion in ED. Able to make needs known.
--- NOTE | 2025-02-02 14:49 | P.CONCA_ITS ---
History of Present Illness History of Present Illness Date of Service: 02/02/25 Requesting physician: Keiko Bonilla Consult reason: atrial fibrillation and other (Hypotension) Chief complaint: Afib RVR Narrative: Patient presents to the hospital with recurrent atrial fibrillation with rapid ventricular response and hypotension. BNP was significantly elevated. Shaye's emergently cardioverted in the ED achieving sinus rhythm. She has recently admitted to the hospital with atrial fibrillation in his sotalol was discontinued and she was started on Tikosyn therapy as an alternative antiarrhythmic. However her dose could not be further maximize due to prolongation of her repolarization and was sent home on 125 mcg b.i.d. and to be seen by electrophysiology as outpatient in his near future. Outpatient had fever and shows couple of days ago and then started having symptoms of racing heart rate. She could not tolerate and came to the emergency room. Has prior history of nonischemic cardiomyopathy with cardiac resynchronization therapy with ICD as well as recurrent atrial fibrillation which has been difficult to manage in the past and more recently has had recurrent episodes with presentation with highly symptomatic presentation with hypotension heart failure symptoms. Patient is quite emotional about this. Review of Systems 2 Constitutional: Constitutional: Reports chills and Reports fever(s) Eyes: Eyes: Reports no additional eye complaints Cardiovascular: Cardiovascular: Denies chest pain, Reports rapid heart rate, Denies lightheadedness, Denies Loss of Consciousness, Reports palpitations and Reports dyspnea Respiratory: Respiratory: Reports no additional respiratory complaints and Reports dyspnea Gastrointestinal: Gastrointestinal: Reports no additional gastrointestinal complaints Endocrine: Endocrine: Reports palpitations PMFSH Past Medical History Medical History Heart failure with reduced ejection fraction Chronic radicular pain of lower back Chest pain Encounter for monitoring sotalol therapy Hypotension arterial Osteoporosis screening Transaminitis Biventricular ICD (implantable cardioverter-defibrillator) in place Nonischemic cardiomyopathy SVT (supraventricular tachycardia) PAF (paroxysmal atrial fibrillation) HLD (hyperlipidemia) HTN (hypertension) History of cardioversion Obesity (BMI 30-39.9) Graves' disease in remission Family History Family History Father Stroke Hypertension Mother Hypertension Diabetes Daughter AVM (arteriovenous malformation) Son No problems noted. Sister No problems noted. Brother No problems noted. Brother No problems noted. Brother No problems noted. Brother No problems noted. Family/Other Pancreatic cancer Surgical History Surgical History History of radiofrequency ablation procedure for cardiac arrhythmia History of cardiac defibrillator placement Hx of cardiac catheterization (~06/2017) Hx of tubal ligation Social History Social History Household Members: Spouse Housing: House Do you presently have visiting nurse or other home services: Yes (care worth 1x a month) Alcohol intake: never Comment: moderate risk Patient Tobacco Use Status: Never used Tobacco Smoked in Last 30 Days: No e-Cigarette/Vaping Use: Never Used Second Hand Smoke Exposure: No Use of substances other than those prescribed or required for medical reasons: No Advance Directives: No Advance Directives Information Provided: No Nutrition Risks: No Nutritional Risk service: No Current occupational status: unemployed Cognitive needs: No Hearing needs: No Vision needs: Yes Meds Allergies Allergy/AdvReac Type Severity Reaction Status Date / Time rivaroxaban (From XARELTO) AdvReac Intermediate LEG EDEMA, Verified 02/02/25 08:51 RASH Active Medications: Current Medications Acetaminophen (Acetaminophen 325 Mg Tablet) 650 mg PO Q6H PRN PRN Reason: Pain, Mild 1-3,fever,headache Amoxicillin/Clavulanate Potassium (Amoxicillin/Potassium Clav 875 Mg Tablet) 875 mg PO BID [facility] Apixaban (Apixaban 5 Mg Tablet) 5 mg PO BID [facility] Artificial Tears (Artificial Tears 15 Ml Drops) 1 drop EYE-BOTH BID PRN PRN Reason: Dry Eye(S) Benzocaine (Throat Lozenge, Medicated Lozenge) 1 lozenge MUCOUS MEM Q2H PRN PRN Reason: Sore Throat Calcium Carbonate (Calcium Carbonate 750 Mg Tab.Chew) 750 mg PO Q4H PRN PRN Reason: Heartburn Carvedilol (Carvedilol 6.25 Mg Tablet) 6.25 mg PO BID AN[facility]Y; Protocol Dofetilide (Dofetilide 125 Mcg Capsule) 250 mcg PO BID [facility] Furosemide (Furosemide 40 Mg Tablet) 40 mg PO DAILY [facility]; Protocol Guaifenesin/Dextromethorphan (Guaifenesin Dm 100/10/5 Ml 5 Ml Syrup) 5 ml PO Q6H PRN PRN Reason: Cough Magnesium Hydroxide (Milk Of Magnesia 30 Ml Oral.Susp) 30 ml PO DAILY PRN PRN Reason: Constipation Melatonin (Melatonin 3 Mg Tablet) 6 mg PO BEDTIME PRN PRN Reason: Insomnia Sacubitril/Valsartan (Sacubitril/Valsartan 1 Tab Tablet) 1 tab PO BID [facility]; Protocol Sodium Chloride (0.9 % Sodium Chloride Flush 3 Ml Syringe) 3 ml IVFLUSH QSHIFT [facility] Tamsulosin HCl (Tamsulosin Hcl 0.4 Mg Capsule) 0.4 mg PO DAILY [facility] Home Medications ?Medication ?Instructions ?Recorded ?Confirmed ?Last Taken ?Type acetaminophen 500 mg tablet 500 mg PO Q6H PRN Pain 02/02/25 Unknown History (Tylenol Extra Strength) montelukast 10 mg tablet 10 mg PO BEDTIME PRN asthma 12/26/24 02/02/25 Unknown History polyvinyl alcohol 1.4 % eye drops 1 drp ophthalmic (ey e) BID PRN Dry 01/20/25 02/02/25 Unknown History (Artificial Tears (polyvinyl Eye(S) alcohol)) tamsulosin 0.4 mg capsule 0.4 mg PO DAILY 02/02/2502/02/25 History Physical Exam 2 Vital Signs: Vital Signs: Last Vital Signs Temp 97.7 F 02/02/25 14:36 Pulse 82 02/02/25 14:36 Resp 15 02/02/25 14:36 BP 106/47 L 02/02/25 14:36 Pulse Ox 98 02/02/25 14:36 O2 Del Method Room Air 02/02/25 14:36 Oxygen Flow Rate 2 02/02/25 10:55 BMI result Body Mass Index 31.0 Const: General: cooperative, comfortable, no acute distress, alert and awake Nutritional Appearance: overweight Orientation/consciousness: patient oriented x3 HEENT: Head: Yes normocephalic and Yes atraumatic Neck: Neck: Yes trachea midline, Yes supple and Yes no JVD Resp: Effort & Inspection: normal respiratory effort Auscultation: clear to auscultation bilaterally Cardio: Jugular venous distension: no JVD Rate: regular rate Rhythm: r egular rhythm Heart sounds: S1 normal heart sound present, S2 normal heart sound present, no click, no gallops and no murmurs GI: Auscultation: normal bowel sounds Skin: General skin exam: no rashes or lesions noted Neuro: General: patient oriented x3 and no focal motor deficits Extrem: General: Yes no clubbing, cyanosis or edema Psych: Appearance: grossly normal Affect: Anxious affect present Objective Labs and Meds 02/02/25 09:02 02/02/25 09:02 Lab results: Laboratory Results - last 24 hr 02/02/25 09:02 WBC 9.1 RBC 4.26 Hgb 12.2 Hct 36.8 L MCV 86.4 MCH 28.6 MCHC 33.2 RDW 14.5 Plt Count 232 MPV 10.2 Immature Gran % (Auto) 0.3 Neut % (Auto) 68.8 Lymph % (Auto) 22.7 Garrard % (Auto) 6.6 Eos % (Auto) 1.2 Baso % (Auto) 0.4 Lymph # (Auto) 2.1 Garrard # (Auto) 0.6 Eos # (Auto) 0.1 Baso # (Auto) 0.0 Abs Immat Gran (auto) 0.03 Absolute Neuts (auto) 6.3 Absolute Nucleated RBC 0.000 Nucleated RBC % (auto) 0.0 Hold Purple Top SEE NOTE PT 20.3 H INR 1.7 H Sodium 141 Potassium 4.1 Chloride 107 Carbon Dioxide 24 Anion Gap 14 BUN 14 Creatinine 0.91 Estim Creat Clear Calc 72.8 Estimated GFR > 60 Random Glucose 141 H Lactic Acid 1.4 Calcium 9.3 Magnesium 2.1 Total Bilirubin 0.9 AST 55 H ALT 79 H Alkaline Phosphatase 149 H Troponin I High Sens 9.6 D NT-Pro-B Natriuret Pep 4488.7 H Total Protein 6.8 Albumin 4.4 Assessment and Plan (1) Atrial fibrillation with RVR: Status: Acute Recurrent atrial fibrillation which is poorly tolerated. Question trigger a viral syndrome. Check viral panel. However she had to be emergently cardioverted again. She has been on oral anticoagulation therapy with Eliquis. Discussed case with electrophysiology who can not accept her for inpatient for immediate inpatient ablation. They will try to pursue ablation on February 13 as outpatient. Meanwhile will she will need admission for uptitration of Tikosyn therapy. She did get additional 125 mcg off Tikosyn with her JT prolongation index at 121 milliseconds which is prolonged, however she has had recurrent multiple hospitalization related to poorly tolerated atrial fibrillation with hypotension. Will have to assume this slight risk of increase pro arrhythmias. Will continue monitor for pro arrhythmias on full disclosure cardiac monitoring. Change Tikosyn to 250 mcg b.i.d.. Continue full oral anticoagulation with Eliquis. Increase Coreg to 12.5 mg b.i.d. starting tomorrow if her blood pressure allows. (2) Nonischemic cardiomyopathy: Status: Acute Nonischemic cardiomyopathy with cardiac resynchronization therapy. Elevated BNP most likely due recurrent atrial fibrillation hypotension. Will continue monitor for signs of heart failure. Continue furosemide. Continue Entresto and carvedilol therapy. Will follow with you Procedures Date of Service Date of Service: 02/02/25
--- NOTE | 2025-02-02 15:00 | ECG_ITS ---
Test Reason : 2hours post tikosyn dose Blood Pressure : */* mmHG Vent. Rate : 80 BPM Atrial Rate : 80 BPM P-R Int : 196 ms QRS Dur : 94 ms QT Int : 444 ms P-R-T Axes : 69 -78 55 degrees QTcB Int : 512 ms Atrial-sensed ventricular-paced rhythm Abnormal ECG When compared with ECG of 02-Feb-2025 09:41, Premature supraventricular complexes are no longer Present Vent. rate has decreased by 13 bpm Referred By: Keiko Bonilla Electronically Signed By: KY HERNANDEZ MD
[2025-02-02 15:32] LABS: Chlamydia pneumoniae PCR Not Detected (Not Detect.); Coronavirus 229E PCR Not Detected (Not Detect.); Coronavirus HKU1 PCR Not Detected (Not Detect.); Coronavirus NL63 PCR Not Detected (Not Detect.); Coronavirus OC43 PCR Not Detected (Not Detect.); RSV PCR Not Detected (Not Detect.); Rhino/Enterovirus PCR Not Detected (Not Detect.)
[2025-02-02 15:48] LABS: Influenza A H1 PCR Not Detected (Not Detect.); Influenza A H1-2009 PCR Not Detected (Not Detect.); Influenza A H3 PCR Not Detected (Not Detect.); SARS-CoV-2 PCR Not Detected (Not Detect.)
[2025-02-02] MEDS: 0.9 % Sodium Chloride Flush 3 ML SYRINGE IVFLUSH (17:09)
[2025-02-02] MEDS: Sacubitril/Valsartan 24/26 1 TAB TABLET PO (20:41)
[2025-02-03] VITALS (7 sets, daily range): BP systolic 93–165; BP diastolic 51–78; PULSE 73–120; RESP 16–18; TEMP 36.3–36.8; O2SAT 93–96
[2025-02-03 06:44] LABS: Alanine Aminotransferase 52 U/L (0-31); Albumin Level 3.6 g/dL (3.5-5.0); Alkaline Phosphatase 125 U/L (39-117); Anion Gap 12 (12-20); Aspartate Amino Transferase 30 U/L (5-31); Blood Urea Nitrogen 15 mg/dL (9-16); Calcium 8.7 mg/dL (8.4-10.2); Carbon Dioxide 26 mmol/L (22-29); Chloride 108 mmol/L (96-108); Creatinine Clr Calc Pharmacy 93.4; Estimated Glomerular Filt Rate > 60; Magnesium 2.1 mg/dL (1.6-2.6); Potassium 3.6 mmol/L (3.3-5.1); Sodium 142 mmol/L (135-145); Total Protein 6.0 g/dL (6.5-8.0)
[2025-02-03] MEDS: 0.9 % Sodium Chloride Flush 3 ML SYRINGE IVFLUSH (08:19)
[2025-02-03] MEDS: Sacubitril/Valsartan 24/26 1 TAB TABLET PO ×2 (08:20→20:27)
[2025-02-03] MEDS: guaiFENesin DM 100/10/5 ML 5 ML SYRUP PO ×2 (10:00→17:10)
--- NOTE | 2025-02-03 10:20 | ECG_ITS ---
Test Reason : medication Blood Pressure : */* mmHG Vent. Rate : 80 BPM Atrial Rate : 80 BPM P-R Int : 194 ms QRS Dur : 100 ms QT Int : 442 ms P-R-T Axes : 87 -75 81 degrees QTcB Int : 509 ms Atrial-sensed ventricular-paced rhythm Abnormal ECG When compared with ECG of 02-Feb-2025 15:10, No significant change was found Referred By: Rio Phillips Electronically Signed By: KY HERNANDEZ MD
--- NOTE | 2025-02-03 10:24 | ECG_ITS ---
Test Reason : afib Blood Pressure : */* mmHG Vent. Rate : 79 BPM Atrial Rate : 79 BPM P-R Int : 166 ms QRS Dur : 130 ms QT Int : 484 ms P-R-T Axes : 73 -80 62 degrees QTcB Int : 554 ms Atrial-sensed ventricular-paced rhythm with Fusion complexes Abnormal ECG When compared to the previous EKG of Fusion complexes are now Present Referred By: Rio Phillips Electronically Signed By: KY HERNANDEZ MD
--- NOTE | 2025-02-03 15:14 | PM.PNCARD ---
Subjective Subjective Date of Service: 02/03/25 Principal diagnosis: Atrial fibrillation Interval history: No overnight atrial fibrillation. JT prolongation index is slightly prolonged at 122 milliseconds on higher dose of Tikosyn. Blood pressure is soft but no hypotension. Denies shortness of breath. Review of Systems Review of Systems Yes all other systems are reviewed and are negative Physical Exam Vital Signs: Last Vital Signs Temp 97.4 F 02/03/25 15:10 Pulse 73 02/03/25 15:10 Resp 16 02/03/25 15:10 BP 108/60 02/03/25 15:10 Pulse Ox 96 02/03/25 15:10 O2 Del Method Room Air 02/03/25 15:10 Oxygen Flow Rate 2 02/02/25 10:55 BMI result Body Mass Index 31.0 Const General: cooperative, comfortable, no acute distress, alert and awake Nutritional Appearance: overweight Orientation/consciousness: patient oriented x3 HEENT Head: Yes normocephalic and Yes atraumatic Neck Neck: Yes trachea midline, Yes supple and Yes no JVD Resp Effort & Inspection: normal respiratory effort Auscultation: clear to auscultation bilaterally Cardio Jugular venous distension: no JVD Rate: regular rate Rhythm: regular rhythm Heart sounds: S1 normal heart sound present, S2 normal heart sound present, no click, no gallops and no murmurs GI Auscultation: normal bowel sounds Skin General skin exam: no rashes or lesions noted Neuro General: patient oriented x3 and no focal motor deficits Extrem General: Yes no clubbing, cyanosis or edema Psych Appearance: grossly normal Affect: Anxious affect present Objective Labs and Meds 02/02/25 09:02 02/03/25 06:05 Lab results: Laboratory Results - last 24 hr 02/02/25 02/03/25 12:15 06:05 Hold Purple Top SEE NOTE Sodium 142 Potassium 3.6 Chloride 108 Carbon Dioxide 26 Anion Gap 12 BUN 15 Creatinine 0.71 Estim Creat Clear Calc 93.4 Estimated GFR > 60 Random Glucose 105 Calcium 8.7 D Magnesium 2.1 Total Bilirubin 0.8 Direct Bilirubin 0.3 AST 30 ALT 52 H Alkaline Phosphatase 125 H Total Protein 6.0 L Albumin 3.6 Respiratory Panel Childs See Note Adenovirus (Rapid PCR) Not Detected B.pert (TEM-PCR) Not Detected B.parapertussis DNA PCR Not Detected C. pneumoniae DNA (PCR) Not Detected Coronavirus OC43 (PCR) Not Detected Coronavirus HKU1 (PCR) Not Detected Coronavirus 229E (PCR) Not Detected Coronavirus NL63 (PCR) Not Detected Human Metapneumovir PCR Not Detected Influenza A (RT-PCR) Not Detected Influenza A (H1) PCR Not Detected Influ A (H1/09) PCR Not Detected Influenza A (H3) PCR Not Detected Influenza B (RT-PCR) Not Detected M. pneumoniae (PCR) Not Detected Parainfluenza 1 (PCR) Not Detected Parainfluenza 2 (PCR) Not Detected Parainfluenza 3 (PCR) Not Detected Parainfluenza 4 (PCR) Not Detected RSV (PCR) Not Detected Entero/Rhino (PCR) Not Detected SARS-CoV-2 RNA (RT-PCR) Not Detected Progress Note: A&P Assessment and plan (1) Atrial fibrillation with RVR: Status: Acute Assessment and Plan: Poorly tolerated atrial fibrillation recurrent episodes with recurrent hospitalization. She is on higher dose of Tikosyn at 250 mcg b.i.d. with prolonged repolarization. This is expected and discussed with the patient about risks associated with it. Given that she has underlying ICD and being monitored I think this should be okay till she gets her definitive treatment with the ablation. Was discussed with her. She understands. Continue full oral anticoagulation with Eliquis. Continue carvedilol therapy. Avoidance of stimulants was discussed. (2) Biventricular ICD (implantable cardioverter-defibrillator) in place: Status: Acute Assessment and Plan: Biventricular ICD in place, working well. Will continue monitor (3) Nonischemic cardiomyopathy: Status: Acute Assessment and Plan: Nonischemic cardiomyopathy without overt heart failure. Continue carvedilol Entresto therapy. Continue rhythm control approach as above. Will follow with you Time Spent With Patient Time: Total time managing care of this patient today ____ minutes. Progress Note: Quality Stroke Does the patient have a stroke diagnosis?: No Procedures Date of Service Date of Service: 02/03/25
--- NOTE | 2025-02-03 16:15 | P.PNIM_ITS ---
Subjective Subjective Date of Service: 02/03/25 Interval History: Atrial fibrillation with rapid ventricular response Review of Systems has cough no new c/o Review of Systems: Yes all other systems are reviewed and are negative Physical Exam 2 Exam: Exam: Appearance: Alert.? Oriented X3. cvs: rrr, [id number] res:air entry fair , no rales or wheezing abd: no rebound or guarding ,nt, bs present. ext pulses present , no cyanosis . neuro: axo3 , nonfocal. Vital Signs: Vital Signs: Last Vital Signs Temp 97.4 F 02/03/25 15:10 Pulse 73 02/03/25 15:10 Resp 16 02/03/25 15:10 BP 108/60 02/03/25 15:10 Pulse Ox 96 02/03/25 15:10 O2 Del Method Room Air 02/03/25 15:10 Oxygen Flow Rate 2 02/02/25 10:55 BMI result Body Mass Index 31.0 Objective Data Active Medications Acetaminophen (Acetaminophen 325 Mg Tablet) 650 mg PO Q6H PRN PRN Reason: Pain, Mild 1-3,fever,headache Amoxicillin/Clavulanate Potassium (Amoxicillin/Potassium Clav 875 Mg Tablet) 875 mg PO BID [facility] Last Admin: 02/03/25 08:20 Dose: 875 mg Documented By: VLADIMIR Apixaban (Apixaban 5 Mg Tablet) 5 mg PO BID [facility] Last Admin: 02/03/25 08:20 Dose: 5 mg Documented By: VLADIMIR Artificial Tears (Artificial Tears 15 Ml Drops) 1 drop EYE-BOTH BID PRN PRN Reason: Dry Eye(S) Benzocaine (Throat Lozenge, Medicated Lozenge) 1 lozenge MUCOUS MEM Q2H PRN PRN Reason: Sore Throat Benzonatate (Benzonatate 100 Mg Capsule) 100 mg PO TID PRN PRN Reason: Cough Calcium Carbonate (Calcium Carbonate 750 Mg Tab.Chew) 750 mg PO Q4H PRN PRN Reason: Heartburn Carvedilol (Carvedilol 6.25 Mg Tablet) 6.25 mg PO BID [facility]; Protocol Last Admin: 02/03/25 08:20 Dose: 6.25 mg Documented By: VLADIMIR Dofetilide (Dofetilide 125 Mcg Capsule) 250 mcg PO BID [facility] Last Admin: 02/03/25 08:20 Dose: 250 mcg Documented By: VLADIMIR Furosemide (Furosemide 40 Mg Tablet) 40 mg PO DAILY [facility]; Protocol Last Admin: 02/03/25 08:20 Dose: 40 mg Documented By: VLADIMIR Guaifenesin (Guaifenesin 200 Mg/10 Ml 10 Ml Liquid) 10 ml PO Q4H PRN PRN Reason: Cough Guaifenesin/Dextromethorphan (Guaifenesin Dm 100/10/5 Ml 5 Ml Syrup) 5 ml PO Q6H PRN PRN Reason: Cough Last Admin: 02/03/25 10:00 Dose: 5 ml Documented By: VLADIMIR Magnesium Hydroxide (Milk Of Magnesia 30 Ml Oral.Susp) 30 ml PO DAILY PRN PRN Reason: Constipation Melatonin (Melatonin 3 Mg Tablet) 6 mg PO BEDTIME PRN PRN Reason: Insomnia Sacubitril/Valsartan (Sacubitril/Valsartan 1 Tab Tablet) 1 tab PO BID [facility]; Protocol Last Admin: 02/03/25 08:20 Dose: 1 tab Documented By: VLADIMIR Sodium Chloride (0.9 % Sodium Chloride Flush 3 Ml Syringe) 3 ml IVFLUSH QSHIFT [facility] Last Admin: 02/03/25 08:19 Dose: 3 ml Documented By: VLADIMIR Tamsulosin HCl (Tamsulosin Hcl 0.4 Mg Capsule) 0.4 mg PO DAILY [facility] Last Admin: 02/03/25 08:20 Dose: 0.4 mg Documented By: VLADIMIR Labs 02/02/25 09:02 02/03/25 06:05 Labs: Laboratory Results - last 24 hr 02/03/25 06:05 Hold Purple Top SEE NOTE Anion Gap 12 Estim Creat Clear Calc 93.4 Estimated GFR > 60 Random Glucose 105 Calcium 8.7 D Magnesium 2.1 Total Bilirubin 0.8 Direct Bilirubin 0.3 AST 30 ALT 52 H Alkaline Phosphatase 125 H Total Protein 6.0 L Albumin 3.6 Assessment and Plan (1) Atrial fibrillation with RVR: Status: Acute Assessment and Plan: 69-year-old female with a history of pAF on Eliquis s/p multiple CV and ablation x2 , HFrEF, AICD recently admitted for initiation of tikosyn who presented to outpatient appointment found to be in afib with RVR with, unstable with low bp requiring cardioversion in the ED. Atrial fibrillation with rapid ventricular response s/p successful CV in ED admit to titrate dose of tikosyn. received am dose, will give now dose of 125 mcg increase to 250mcg this evening. follow tikosyn protocol - ekg 2 hours post tikosyn dose tele monitoring follow potassium and magnesium levels with goal to keep K >4 and mag >2 cardiology following continue anticoagulation with Eliquis has appt for ablation on 02/13 at [facility] [place] URI fever at home, dry cough has been on augmentin since 01/29 possible viral RPP -negative cxr added symptomatic support Mild transaminitis no abdominal pain trend LFTs -improivng, continue to moniter HFrEF BNP elevated but does not appear to be in overt HF at this time continue baseline lasix, Entresto as bp allows DVT prophylaxis-Eliquis Code status-full code ongoing need for hospital stay for management atrial fibrillation with rapid ventricular response requiring specialist evaluation, antiarrhythmic medication requiring close cardiac monitoring and frequent EKGs which can not be done in a lesser acute setting. Quality Stroke Does the patient have a stroke diagnosis?: No VTE Prior VTE?: No VTE Risk Level:: Medical - moderate - high VTE Device Contraindication: N/A - Device Ordered VTE Drug Contraindication: N/A - Med Ordered
[2025-02-03] MEDS: guaiFENesin 200 MG/10 ML 10 ML LIQUID PO (20:27)
[2025-02-04 02:32] VITALS: BP 137/67; PULSE 65; RESP 14; TEMP 36.4; O2SAT 97
[2025-02-04 07:45] VITALS: BP 131/62; PULSE 77; RESP 16; TEMP 36.5; O2SAT 92
[2025-02-04] MEDS: Sacubitril/Valsartan 24/26 1 TAB TABLET PO (08:30)
[2025-02-04] MEDS: 0.9 % Sodium Chloride Flush 3 ML SYRINGE IVFLUSH (08:35)
[2025-02-04 10:19] LABS: Magnesium 2.1 mg/dL (1.6-2.6); Potassium 3.8 mmol/L (3.3-5.1)
--- NOTE | 2025-02-04 10:30 | ECG_ITS ---
Test Reason : tikosyn load Blood Pressure : */* mmHG Vent. Rate : 77 BPM Atrial Rate : 77 BPM P-R Int : 200 ms QRS Dur : 100 ms QT Int : 450 ms P-R-T Axes : 69 -80 64 degrees QTcB Int : 509 ms Normal sinus rhythm Left axis deviation Anterolateral infarct , age undetermined Abnormal ECG When compared with ECG of 03-Feb-2025 10:24, No significant changes seen Referred By: Rio Phillips Electronically Signed By: LIDIA CHACON
--- NOTE | 2025-02-04 11:00 | P.PNCA_ITS ---
Subjective Subjective Date of Service: 02/04/25 Principal diagnosis: Atrial fibrillation Interval history: No overnight atrial fibrillation. JT prolongation index remains at 01:22 milliseconds on today's EKGs. Tolerating it well. Blood pressure is stable. No signs of heart failure Review of Systems Review of Systems Yes all other systems are reviewed and are negative Physical Exam Vital Signs: Last Vital Signs Temp 97.7 F 02/04/25 07:45 Pulse 77 02/04/25 07:45 Resp 16 02/04/25 07:45 BP 131/62 02/04/25 07:45 Pulse Ox 92 02/04/25 07:45 O2 Del Method Room Air 02/04/25 07:45 O2 Flow Rate 4 02/03/25 19:13 Oxygen Flow Rate 2 02/02/25 10:55 BMI result Body Mass Index 31.0 Const General: cooperative, comfortable, no acute distress, alert and awake Nutritional Appearance: overweight Orientation/consciousness: patient oriented x3 HEENT Head: Yes normocephalic and Yes atraumatic Neck Neck: Yes trachea midline, Yes supple and Yes no JVD Resp Effort & Inspection: normal respiratory effort Auscultation: clear to auscultation bilaterally Cardio Jugular venous distension: no JVD Rate: regular rate Rhythm: regular rhythm Heart sounds: S1 normal heart sound present, S2 normal heart sound present, no click, no gallops and no murmurs GI Auscultation: normal bowel sounds Skin General skin exam: no rashes or lesions noted Neuro General: patient oriented x3 and no focal motor deficits Extrem General: Yes no clubbing, cyanosis or edema Psych Appearance: grossly normal Affect: Anxious affect present Objective Labs and Meds 02/02/25 09:02 02/04/25 09:41 Lab results: Laboratory Results - last 24 hr 02/04/25 09:41 Potassium 3.8 Magnesium 2.1 Progress Note: A&P Assessment and plan (1) PAF (paroxysmal atrial fibrillation): Status: Acute Assessment and Plan: Highly symptomatic atrial fibrillation with multiple recent hospitalization with hypotension poorly tolerated AFib. Increase his Tikosyn to 250 mcg b.i.d. as a bridge prior to ablation. The earliest ablation she could get was February 13 at [facility]. Will continue with current dose of Tikosyn with slightly prolonged repolarization time and accepting the risk. Patient aware of the same. Continue full oral anticoagulation, currently on Eliquis. Continue carvedilol therapy can not maximize due to lowish blood pressure. Avoidance of stimulants was discussed and stress mitigation strategies were discussed. Patient can be discharged home today. (2) Nonischemic cardiomyopathy: Status: Acute Assessment and Plan: Cardiomyopathy without overt heart failure. Continue carvedilol Entresto. Continue rhythm control as above. Continue Lasix. Will follow up in 5 days for EKGs. Time Spent With Patient Time: Total time managing care of this patient today ____ minutes. Progress Note: Quality Stroke Does the patient have a stroke diagnosis?: No Procedures Date of Service Date of Service: 02/04/25
[2025-02-04 11:33] VITALS: BP 120/59; PULSE 77; RESP 18; TEMP 36.2; O2SAT 92
--- NOTE | 2025-02-04 11:55 | P.DS_ITS ---
DS: Providers Provider Date of admission: 02/02/25 11:41 Date of discharge: 02/04/25 Primary care physician: Jeremy Smith PA-C Consults: 02/02/25 11:41 Consult to Cardiology Routine Consulting Provider: [facility] [place] [facility] Reason for consultation: afib rvr s/p CV Has provider been notified: Yes Attending physician on discharge: Rio Phillips Discharging clinician: Rio Phillips DS: Diagnosis Discharge Diagnosis (1) PAF (paroxysmal atrial fibrillation): Status: Acute (2) Nonischemic cardiomyopathy: Status: Acute DS: Summary Hospital Course Hospital Course: HPI:69-year-old female with a history of HFrEF, pAF on Eliquis, SVT, biventricular ICD who presented to the emergency department due to fatigue. Patient was admitted 01/20-01/24 for afib rvr requiring CV and subsequently was initiated on tikosyn. She was discharged home on 125 mcg bid. She has been taking her medications without missing a dose. Since January 29 she reports dry cough scratchy throat and intermittent fever of 101-102 at home. She called her primary care provider who prescribed her a course of Augmentin. She had an appointment with her primary care provider this morning but in the office and EKG was obtained which showed atrial fibrillation and she was sent to the emergency department for evaluation. She reports feeling tired, weak and having palpitations. In the emergency department she was hypotensive and therefore she underwent cardioversion and successfully converted back to normal sinus rhythm. Cardiology has recommended increasing dose of tikosyn and therefore she will be admitted for dose adjustment. Hospital course: Patient was admitted for AFib with RVR and was unstable with low BP requiring cardioversion in ED: Subsequently patient was seen by Cardiology and recommended to adjust digoxin dose to 250 mcg b.i.d.ekg monitered as well as tele ,also seen by cardiology: Patient is feeling improving after above, blood pressure is stable, patient will go home with Tikosyn 250 b.i.d. cardiology evaluated the patient:continue with current dose of Tikosyn with slightly prol onged repolarization time and accepting the risk. Patient to follow up with Cardiology outpatient as well as she needs to follow with [facility] for further ablation treatment in February. Cough nonproductive: No shortness of breath or fever or new symptoms Rpp -negative, chest x-ray negative Added cough medication upon discharge plan: Tikosyn adjusted to 250 mcg p.o. b.i.d. Monitor BMP outpatient Follow up with PCP and Cardiology outpatient Above management discussed with the patient detail length she understand and in agreement with the above plan, time spent 45 minute. Time Attestation Total time managing care of this patient today: 45 mintues. Discharge Coordination Time (in mins): 45 minute Quality: Safe Use of Opioids Does Pt have an Active Cancer Diagnosis on the Problem List?: No Quality: Stroke Does the patient have a stroke diagnosis?: No Physical Exam Exam: Exam: Appearance: Alert.? Oriented X3.? . cvs: rrr, [id number] . res: clear to auscultation ,no rhonchii or wheezing abd: no rebound or guarding ,nt, bs present. ext pulses present , no cyanosis ,Gait well balanced well coordinated. neuro: axo3 , nonfocal. Vital Signs: Vital Signs: Last Vital Signs Temp 97.1 F 02/04/25 11:33 Pulse 77 02/04/25 11:33 Resp 18 02/04/25 11:33 BP 120/59 L 02/04/25 11:33 Pulse Ox 92 02/04/25 11:33 O2 Del Method Room Air 02/04/25 11:33 O2 Flow Rate 4 02/03/25 19:13 Oxygen Flow Rate 2 02/02/25 10:55 BMI result Body Mass Index 31.0 DS: Data Data Completed and Pending Completed studies during hospitalization [Text1]: Procedures [facility] Cardiac Rhythm, Single (12/07/24) Labs on day of discharge: Laboratory Results - last 24 hr 02/04/25 09:41 Potassium 3.8 Magnesium 2.1 Imaging Chest x-ray: My impression: cxr:Impression: 1. No acute cardiopulmonary disease. Discharge Plan Discharge Anticipated Discharge Date/Time: 02/04/25 11:48 Patient Disposition: Home, Self-Care Discharge Diagnosis: afib Referrals: Jeremy Smith PA-C [Primary Care Provider, Internal Medicine] - 1 Week Discharge Medications: New benzonatate 100 mg Capsule 100 mg PO TID PRN (Reason: Cough) Qty: 20 0RF guaifenesin 100 mg/5 mL Liquid 10 mg PO Q4H PRN (Reason: Cough) Qty: 200 0RF Continued Eliquis 5 mg tablet 5 mg PO BID Qty: 180 3RF furosemide 40 mg tablet 40 mg PO DAILY Qty: 90 3RF Entresto 24-26 mg tablet 1 tab PO BID 90 Days Qty: 180 3RF amoxicillin-pot clavulanate 875-125 mg tablet 1 tab PO BID 7 Days Qty: 14 0RF polyvinyl alcohol [Artificial Tears (polyvin alc)] 1.4 % Drops 1 drp OPHTHALMIC (EYE) BID PRN (Reason: Dry Eye(S)) carvedilol 6.25 mg Tablet 6.25 mg PO BID Qty: 180 0RF Protocol: Hold for SBP/HR < HOLD for SBP < : 90 HOLD for HR < : 60 tamsulosin 0.4 mg capsule 0.4 mg PO DAILY (DME) blood pressure test kit-large Kit See Rx Instructions .Route Qty: 1 0RF Rx Instructions: As directed pyridoxine (vitamin B6) 100 mg tablet 100 mg PO DAILY 90 Days Qty: 90 3RF (DME) Knee Brace Large-XLarge Misc See Rx Instructions .Route Qty: 1 0RF Rx Instructions: As directed montelukast 10 mg tablet 10 mg PO BEDTIME PRN (Reason: asthma) acetaminophen [Tylenol Extra Strength] 500 mg tablet 500 mg PO Q6H PRN (Reason: Pain) Changed dofetilide 125 mcg Capsule 250 mcg PO BID Qty: 180 0RF Discharge Orders: Discharge Order (Routine); Ordered 02/04/25 Ordered By: Rio Phillips Diet: Advance to usual diet Activity on Discharge: As tolerated Stand Alone Forms: Patient Portal Discharge page Print Language: Indian Care Plan Goals: Patient was admitted for AFib with RVR and was unstable with low BP requiring cardioversion in ED: Subsequently patient was seen by Cardiology and recommended to adjust digoxin dose to 250 mcg b.i.d.ekg monitered as well as tele ,also seen by cardiology: Patient is feeling improving after above, blood pressure is stable, patient will go home with Tikosyn 250 b.i.d. and follow up with Cardiology outpatient patient already has appointment with [facility] for further ablation treatment. Monitor BMP outpatient Health Concerns: As above. Plan of Treatment: As above. Assessment: As above. Discharge Date/Time: 02/04/25 13:39
--- NOTE | 2025-02-04 12:29 | MHC.CM.PN ---
IMM 02/04/25 Patient from Home. Lives with family. [facility] management, [employer] in place. DP home with resimption of [employer] services. Patients son will provide transportation home.
[2025-02-04] MEDS: Potassium Chloride ER 20 MEQ TAB.ER.PRT PO (13:10)
== END 2025-02-04 13:39 | disposition home or self-care (01) | DRG 309 ==
LOC: HO.ED 10:03 → HO.EDOVER 11:54 → HO.IMC 15:30
PROVIDERS: Admitting Provider Physician Assistant Medical; Emergency Provider Emergency Medicine; PCP Physician Assistant; Visit Provider Internal Medicine
DX: I48.0 Paroxysmal atrial fibrillation (principal); I50.22 Chronic systolic (congestive) heart failure; I42.8 Other cardiomyopathies; J06.9 Acute upper respiratory infection, unspecified; Z20.822 Contact with and (suspected) exposure to COVID-19; Z95.810 Presence of automatic (implantable) cardiac defibrillator; Z79.01 Long term (current) use of anticoagulants; Z79.51 Long term (current) use of inhaled steroids; Z79.899 Other long term (current) drug therapy
CPT/HCPCS: 36415; 71045; 80048; 80053; 80076; 83605; 83735; 83880; 84132; 84484; 85025; 85610; 87633; 93005; 99285

== ENCOUNTER 2025-02-02 11:41 | Outpatient (BNV) | payer MEDICARE, MEDICAID, SELFPAY ==
[2023-05-04 15:23] VITALS: BP 104/68; BP 112/72; BMI 31.3
== END 2025-02-04 10:30 ==
PROVIDERS: Admitting Provider Physician Assistant Medical; Emergency Provider Emergency Medicine; PCP Physician Assistant; Visit Provider Internal Medicine
DX: R94.31 Abnormal electrocardiogram [ECG] [EKG] (principal)
CPT/HCPCS: 93010

== ENCOUNTER 2025-02-02 11:41 | Outpatient (BNV) | payer MEDICARE, MEDICAID, SELFPAY ==
[2023-05-04 15:23] VITALS: BP 104/68; BP 112/72; BMI 31.3
== END 2025-02-03 10:20 ==
PROVIDERS: Admitting Provider Physician Assistant Medical; Emergency Provider Emergency Medicine; PCP Physician Assistant; Visit Provider Internal Medicine Cardiovascular Disease
DX: R94.31 Abnormal electrocardiogram [ECG] [EKG] (principal); Z95.0 Presence of cardiac pacemaker
CPT/HCPCS: 93010

== ENCOUNTER → 2025-02-02 11:41 | Outpatient (BNV) | payer MEDICARE, MEDICAID, SELFPAY ==
[2023-05-04 15:23] VITALS: BP 104/68; BP 112/72; BMI 31.3
== END ==
PROVIDERS: Admitting Provider Physician Assistant Medical; Emergency Provider Emergency Medicine; PCP Physician Assistant; Visit Provider Physician Assistant Medical
DX: I48.91 Unspecified atrial fibrillation (principal)
CPT/HCPCS: 99223; 99232

== ENCOUNTER → 2025-02-02 11:41 | Outpatient (BNV) | payer MEDICARE, MEDICAID, SELFPAY ==
[2023-05-04 15:23] VITALS: BP 104/68; BP 112/72; BMI 31.3
== END ==
PROVIDERS: Admitting Provider Physician Assistant Medical; Emergency Provider Emergency Medicine; PCP Physician Assistant; Visit Provider Internal Medicine Cardiovascular Disease
DX: I48.91 Unspecified atrial fibrillation (principal); Z95.810 Presence of automatic (implantable) cardiac defibrillator; I42.8 Other cardiomyopathies
CPT/HCPCS: 99233

== ENCOUNTER → 2025-02-02 16:03 | Outpatient (BNV) | payer MEDICARE, MEDICAID, SELFPAY ==
[2023-05-04 15:23] VITALS: BP 104/68; BP 112/72; BMI 31.3
== END ==
PROVIDERS: PCP Physician Assistant; Visit Provider Internal Medicine Cardiovascular Disease
DX: Z45.02 Encounter for adjustment and management of automatic implantable cardiac defibrillator (principal)
CPT/HCPCS: 93295